=== PATIENT | male | born 1955 | race Caucasian/White ===

== ENCOUNTER 2023-08-27 14:42 | Emergency (ER) | payer MEDICARE, BC, SELFPAY ==
[2023-08-27 14:55] VITALS: BP 194/83; PULSE 98; RESP 18; TEMP 36.5; O2SAT 100; BMI 28.1
--- NOTE | 2023-08-27 15:44 | CRLHL7_ITS ---
For Patients: As a result of the Century Cures Act, medical imaging exams and procedure reports are released immediately into your electronic medical record. You may view this report before your referring provider. If you have questions, please contact your health care provider. INDICATION: Redness, pain. TECHNIQUE: CT right lower extremity acquired with 93 cc Isovue 370 IV contrast. COMPARISON: 08/23/2023. FINDINGS: Persistent low-density collection in the lateral soft tissues measuring approximately 1.2 x 6.1 x 12.0 cm. Again demonstrated thickening of the adjacent fascial later, which remains intact, with continued edema of the underlying musculature. Circumferential soft tissue stranding and edema throughout the right lower extremity. No acute fracture or dislocation. Mild knee degenerative changes. No joint effusions. No popliteal cyst. Muscle bulk is within normal limits. IMPRESSION: Persistent large elongated low-density collection in the lateral soft tissues, which remains concerning for abscess. Please note that all CT scans at this facility use dose modulation, iterative reconstruction, and/or weight-based dosing when appropriate to reduce radiation dose to as low as reasonably achievable. Dictated by Ap Simmons MD @ 08/27/2023 6:03:33 PM (Electronically Signed)
--- NOTE | 2023-08-27 16:06 | ED_ITS ---
HPI - Wound/Laceration General Date Seen: 08/27/23 Chief Complaint: Laceration/Wound Stated Complaint: Abscess on R leg Time Seen by Provider: 08/27/23 15:05 Source: patient Mode of arrival: ambulatory Limitations: no limitations History of Present Illness HPI narrative: Patient is a 68-year-old male presenting to emergency department for concern of of a wound on his left leg. He initially developed this wound several months ago and for surgery at [facility] was January of 2023. Wound has been healing well and he was offered the option to get a skin graft but want to let it heal on its own since it was doing well. Was doing fine up until this past Friday they noticed increased odor coming from the wound and a darker red and purplish around the leg. He went back to [facility] emergency department for evaluation. At that time they did a CT scan showing an abscess and recommended inpatient treatment. Did not have a surgeon available that day and could not transfer him so patient left AMA with antibiotics. They gave him a stat surgery referral but when the patient tried to call in to schedule an appointment he was told he was unable to. Do that he came to [place] ED for evaluation. His states since then the wound is looking better and the color of his legs looking much better. Does state the older has decreased noticeably since Friday but is slightly worse again today. Denies fevers, chills, weakness, numbness, headache, vision changes, abdominal pain, diarrhea. Also of note he is chronic pancytopenia which has not been formally diagnosed. He did see cancer doctors in [facility] in states initially he was told he could be treated with hormones another told him it had to be chemotherapy and nothing ever was done about it. Related Data Home Medications ?Medication ?Instructions ?Recorded ?Confirmed doxycycline monohydrate 100 mg 100 mg PO BID 08/27/23 08/27/23 capsule Allergies Allergy/AdvReac Type Severity Reaction Status Date / Time No Known Drug Allergies Allergy Verified 08/27/23 15:03 Review of Systems Status of ROS: Reports: 10 or more systems reviewed and unremarkable except as noted in History and below [facility] Social History Smoking Status: Current every day smoker Exam Narrative: Exam Narrative: Const: Well-nourished, Well-developed, in mild distress Eyes: PERRL, no conjunctival injection, and symmetrical lids HENT: Atraumatic external nose and ears. Moist mucous membranes. Neck: Symmetric, trachea midline, No thyromegaly. CVS: RRR, No murmurs or gallops. Peripheral pulses 2+ and equal in all extremities RESP: Unlabored respiratory effort. Clear to auscultation bilaterally. GI: Nontender/Nondistended, No rebound or guarding. MSK:Extremities w/o deformity, Normal Active ROM Skin: Large 4 cm x 8 cm wound to his left leg with surrounding erythema. Adipose in granular tissue seem to be extruding from the wound which is normal he states Neuro: Normal Muscle tone, No focal neurological deficits. Psych: Awake, Alert, & Oriented x3. Appropriate mood and affect. Const: Vital Signs, click to edit/add: Vital Signs - 24 hr 08/27/23 14:55 Temperature 97.7 F Pulse Rate [Right Pulse Oximeter] 98 Respiratory Rate 18 Blood Pressure [Ri ght Upper Arm] 194/83 H Pulse Oximetry 100 Oxygen Delivery Me thod Room Air Course Vital Signs Vital signs: Initial Vital Signs Temperature 97.7 F 08/27/23 14:55 Temperature Source Temporal Artery Scan 08/27/23 14:55 Pulse Rate 98 08/27/23 14:55 Respiratory Rate 18 08/27/23 14:55 Blood Pressure 194/83 H 08/27/23 14:55 Blood Pressure Mean 120 H 08/27/23 14:55 Blood Pressure Position Sitting 08/27/23 14:55 Pulse Oximetry 100 08/27/23 14:55 Oxygen Delivery Method Room Air 08/27/23 14:55 Vital Signs Temperature 97.7 F 08/27/23 14:55 Pulse Rate 98 08/27/23 14:55 Respiratory Rate 18 08/27/23 14:55 Blood Pressure 194/83 H 08/27/23 14:55 Pulse Oximetry 100 08/27/23 14:55 Oxygen Delivery Method Room Air 08/27/23 14:55 Temperature 97.7 F 08/27/23 14:55 Pulse Rate 98 08/27/23 14:55 Respiratory Rate 18 08/27/23 14:55 Blood Pressure 194/83 H 08/27/23 14:55 Pulse Oximetry 100 08/27/23 14:55 Oxygen Delivery Method Room Air 08/27/23 14:55 MDM - Wound/Laceration MDM Narrative Medical decision making narrative: Patient is a 68-year-old male presenting to emergency department for concern of an abscess. States there is concerned because there is a worsening older but overall the area around the wound is looking better. Denies fevers or chills. No other concerns noted. CBC and BMP were ordered. CBC returned with a white count a 1.52. Based on his previous lab work seen [facility] this is consistent and not any different than his baseline. Hemoglobin also appears roughly around baseline. BMP showed no concerning findings. CT scan was done of the right lower extremity with IV contrast showing a persistent large elongated low-densit y collection in the lateral soft tissue which is concerning for abscess. I spoke to Dr. Paniagua of general surgery and explained her that patient is concerned about this abscess due to the return of the foul-smelling area but overall he states that it looks much better. She reviewed the CT and states that he can follow-up outpatient with their clinic tomorrow at noon. He is agreeable to that plan. Lab Data Labs: Lab Results 08/27/23 Range/Units 16:00 WBC 1.52 L* (4.50-11.00) K/uL RBC 3.61 L (4.30-5.90) m/uL Hgb 8.2 L (13.5-17.5) gm/dL Hct 28.7 L (37.0-53.0) % MCV 80 (80-100) fL MCH 23 L (26-34) pg MCHC 29 L (32-36) gm/dL RDW Coeff of Aguilar 19.7 H (11.5-15.5) % Plt Count 370 (140-440) K/uL Neut % (Auto) 22.4 L (42.0-72.0) % Lymph % (Auto) 39.5 (20-44) % Sargent % (Auto) 32.2 H (0.0-11.0) % Eos % (Auto) 1.3 (0.0-7.0) % Baso % (Auto) 3.3 H (0.0-3.0) % Neut # (Auto) 0.30 L (1.7-7.0) K/uL Lymph # (Auto) 0.60 L (0.90-2.90) K/uL Sargent # (Auto) 0.50 (0.00-0.90) K/UL Eos # (Auto) 0.00 (0.00-0.50) K/uL Baso # (Auto) 0.10 (0.00-0.30) K/uL Abs Immat Gran (auto) 0.00 (0.00-0.30) K/uL Imm/Tot Granulo (auto) 1.3 % Diff Slide Review Acceptable Review (Acceptable) Sodium 134 L (135-149) mmol/L Potassium 3.8 (3.6-5.1) mmol/L Chloride 105 (96-114) mmol/L Carbon Dioxide 23 (20-32) mmol/L Anion Gap 6 L (7-15) mEq/L BUN 15 (7-30) mg/dL Creatinine 1.1 (0.5-1.5) mg/dL Estimated Creat Clear 64.27 Estimated GFR 73 ml/min Glucose 89 (60-115) mg/dL Calcium 8.8 (8.4-10.6) mg/dL Imaging Data CT scan right lower extremity: Attestation: I have reviewed the pertinent imaging results. Radiologist's impression: Persistent large elongated low-density collection in the lateral soft tissues, which remains concerning for abscess. Please note that all CT scans at this facility use dose modulation, iterative reconstruction, and/or weight-based dosing when appropriate to reduce radiation dose to as low as reasonably achievable. Dictated by Ap Simmons MD @ 08/27/2023 6:03:33 PM (Electronic Signature) Discharge Plan Discharge Clinical Impression: Abscess Patient Disposition: Home, Self-Care Condition: Stable Instructions: Abscess (ED) Additional Instructions: You have an appointment with Dr. Paniagua tomorrow at noon at the [place] [facility]. Be there by 11:45. It is located at the same area as the [facility]. Return to emergency department for new or worsening symptoms. Prescriptions: No Action doxycycline monohydrate 100 mg capsule 100 mg PO BID Follow Up/Referrals: David Ambrocio MD [Primary Care Provider] - Stand Alone Forms: MyHealth Info Instructions
[2023-08-27 16:12] LABS: Basophils Percent Auto 3.3 % (0.0-3.0); Eosinophils Percent Auto 1.3 % (0.0-7.0); Hematocrit 28.7 % (37.0-53.0); Hemoglobin* 8.2 gm/dL (13.5-17.5); Immature Granulocytes Pct Auto 1.3 %; Lymphocytes Percent Auto 39.5 % (20-44); Mean Corpuscular HGB Conc 29 gm/dL (32-36); Mean Corpuscular Hemoglobin 23 pg (26-34); Mean Corpuscular Volume 80 fL (80-100); Monocytes Percent Auto 32.2 % (0.0-11.0); Neutrophils Percent Auto 22.4 % (42.0-72.0); Platelet Count* 370 K/uL (140-440); RDW Coefficient of Variation % 19.7 % (11.5-15.5); Red Blood Count 3.61 m/uL (4.30-5.90)
[2023-08-27 16:27] LABS: Slide Review Reflex Yes; White Blood Count* 1.52 K/uL (4.50-11.00)
[2023-08-27 16:45] LABS: Chloride* 105 mmol/L (96-114); Potassium* 3.8 mmol/L (3.6-5.1); Sodium* 134 mmol/L (135-149)
[2023-08-27 16:48] LABS: Anion Gap 6 mEq/L (7-15); Blood Urea Nitrogen* 15 mg/dL (7-30); Calcium* 8.8 mg/dL (8.4-10.6); Carbon Dioxide* 23 mmol/L (20-32); Creatinine* 1.1 mg/dL (0.5-1.5); Est. Creatinine Clearance* 64.27; Estimated Glomerular Filt Rate 73 ml/min; Glucose* 89 mg/dL (60-115)
[2023-08-27 17:34] LABS: Slide Review Acceptable Review (Acceptable)
== END 2023-08-27 18:58 | disposition home or self-care (01) ==
PROVIDERS: Emergency Provider Student in an Organized Health Care Education/Training Program; PCP Family Medicine
DX: L02.415 Cutaneous abscess of right lower limb (principal)
CPT/HCPCS: 36415; 73701; 80048; 85025; 99283; 99284; 99285; Q9967

== ENCOUNTER 2023-08-29 06:47 | Day surgery (SDC) | payer MEDICARE, BC, SELFPAY ==
--- OUTSIDE RECORDS SUMMARY | 2023-08-29 06:49 | XMS_ITS | Clinical Summary ---
Author Organization [facility] Address [place], [place] [address] Care Team Providers Care Pecan Huller Name Role Phone Elvira Morin Stefano RN Unavailable Radha Edouard MD Unavailable [phone] Lizeth Alarcon DRAG CAR RACER Unavailable David Ambrocio MD Primary Care Provider Jaylon Raymond WILDLIFE REFUGE MANAGER Unavailable [phone] [facility] Allergies Active Allergy Reactions Criticality Noted Date Comments Venom-Yellow Jacket Edema Unknown 01/22/2023 Medications Medication Sig Dispensed Refills Start Date End Date Status multivitamin (MVI) tablet Take 1 tablet by mouth once daily. 0 08/24/2011 Active fluticasone (50 mcg per actuation) nasal solution (FLONASE)Indicati ons:Seasonal allergic rhinitis, unspecified trigger 1 SPRAY IN EACH NOSTRIL 2 TIMES DAILY. 16 g 12 04/03/2020 Active cholecalciferol, Vitamin D3, (Vitamin D-3) 5,000 unit tab tablet Take 5,000 units by mouth once daily. Active vitamin B complex (B COMPLETE ORAL) Take 1 Tablet by mouth once daily. Active Bismuth Tribrom-Petrolatu m,Wh (Xeroform) 5 X 9 bndgIndications:W ound of right lower extremity, subsequent encounter Apply topically to affected area(s). 50 Each 2 02/11/2023 Active ferrous sulfate (IRON ORAL) Take by mouth. Active medication order Johnniecataliya ns:Wound of right lower extremity, subsequent encounter Apply 1 unit topically to affected area(s) once daily. Hydrofera Blue Ready antibacterial foam dressing 8x8. Use one per day. 30 Each 08/15/2023 Active doxycycline 100 mg tabletIndications :Abscess of right lower extremity Take 1 Tablet (100 mg) by mouth two times daily for 7 days. 14 Tablet 08/23/2023 Active WalkerIndications :Arthralgia, unspecified joint Walker with front wheels for home use. 1 Each 01/06/2023 4 Discontinue d(*Med complete/Re gimen complete/Le monse of care change) nicotine 14 mg/24 hr (NICODERM; HABITROL) 14 mg/24 hr patchIndications: Pancytopenia (HC) Apply 1 Patch on dry, clean, hairless skin once daily. 21 Patch 2 03/24/2023 4 Discontinue d(*Med complete/Re gimen complete/Le monse of care change) Active Problems Problem Noted Date Diagnosed Date Abscess of right lower leg 01/20/2023 Cellulitis of right lower extremity 01/10/2023 Neutropenia 01/10/2023 Severe sepsis 01/03/2023 Pancytopenia 10/27/2022 Headache(784.0) 05/16/2006 NIGHT SWEATS 05/16/2006 Unspecified essential hypertension 05/16/2006 Pain in joint, site unspecified 05/16/2006 Impotence of organic origin 05/16/2006 MEMORY LOSS, INTERMITTANT 05/16/2006 Encounters Date Type Department Care Team Description 08/23/2023 7:26 PM CDT - 08/23/2023 11:10 PM CDT Emergency [facility] [address] [place] [address] Elvira Thayer PA Abscess of right lower extremity (Primary Dx); Neutropenia, unspecified type (HC) Discharge Disposition: Home Self Care 08/23/2023 Travel 08/12/2023 11:00 AM CDT Office Visit [facility] [address] [place] [address] Radha Edouard MD Follow Up (Pancytopenia (HC) [D61.818]//) 08/12/2023 Travel 08/06/2023 9:47 AM CDT - 08/06/2023 11:59 PM CDT Hospital Encounter [facility] [address] [facility] [place] [address] Pancytopenia (HC) [D61.818] 08/06/2023 Travel 07/22/2023 10:15 AM CDT Office Visit [facility] [place] [address] [address] [facility] [phone] Faraz Henson DPM Consult (Bilateral foot pain and swelling, R>L) 07/22/2023 Travel 06/06/2023 Telephone [facility] [address] [facility] [address] David Ambrocio MD Form (form for wound supplies.) from Last 3 Months Immunizations Name Administration Dates Next Due Td (Age >=7 Years) 07/28/1996 Td, Preservative Free (age >= 7 Years) 7 Tdap 08/28/2022 Family History Medical History Relation Name Comments Thyroid Disease Brother 2 HALF BROTHER WITH GRAVE'S Cancer Father MULTIPLE MYELOM A Diabetes Mother Hyperlipidemia Mother Hypertension Mother Heart Disease Paternal Aunt Cancer Paternal Grandmother Diabetes Paternal Grandmother Heart Disease Paternal Grandmother HEART ATTACK Cancer Paternal Uncle Diabetes Sister 3 HALF SISTER Hypertension Sister 4 HALF SISTER Heart Disease Sister 5 HALF SISTER Relation Name Status Comments Brother 1 Alive Brother 2 Daughter 1 Alive Daughter 2 Alive Daughter 3 Alive Father Maternal Grandfather Maternal Grandmother Mother Paternal Aunt Paternal Grandfather Paternal Grandmother Paternal Uncle Sister 1 Alive Sister 2 Alive Sister 3 Sister 4 Sister 5 Son 1 Alive Son 2 Alive Son 3 Alive Social History Tobacco Use Types Packs/Day Years Used Date Smoking Tobacco: Every Day Cigarettes 1 55.4 Started: 1968 Passive Smoke Exposure: Current Smokeless Tobacco: Never Tobacco Cessation:Ready to Q uit: No; Counseling Given: Yes Alcohol Use Standard Drinks/Week Comments No 0 (1 standard drink = 0.6 oz pur e alcohol) PHQ-2 Answer Date Recorded PHQ-2 TOTAL SCORE 0 09/09/2022 Social Connections Answer Date Recorded Frequency of Communication with Friends and Fami ly 0 01/03/2023 Financial Resource Strain Answer Date R ecorded Difficulty of Paying Living Expenses 3 01/03/2023 Difficulty of Paying Living Expenses Not on file 01/03/2023 Food Insecurity Answer Date Recorded Worried About Running Out of Food in the Last Ye ar 1 01/03/2023 Transportation Needs Answer Date Record ed Lack of Transportation (Medical) 1 01/03/2023 Housing Stability Answer Date Recorded Unable to Pay for Housing in the Last Year 1 01/03/2023 Sex and Gender Information Value Date Recorded Sex Assigned at Not on file Gender Identity Not on file Sexual Orientation Not on file Obstetrics History Last Filed Vital Signs Vital Sign Reading Time Taken Comments Blood Pressure 153/102 08/23/2023 7:02 PM CDT Pulse 91 08/23/2023 7:02 PM CDT Temperature 36.7 ??C (98 ??F) 08/23/2023 7:02 PM CDT Respiratory Rate 17 08/23/2023 7:02 PM CDT Oxygen Saturation 98% 08/23/2023 7:02 PM CDT Inhaled Oxygen Concentration - - Weight 86.8 kg (191 lb 4.8 oz) 08/23/2023 7:05 P M CDT Height 175.3 cm (5' 9) 08/23/2023 7:02 PM CDT Body Mass Index 28.25 08/23/2023 7:02 PM CDT Plan of Treatment Upcoming Encounters Date Type Department Care Team (Late st Contact Info) Description 11/12/2023 9:00 AM CDT Appointment [facility] [address] [place] [address] 11/19/2023 11:15 AM CDT Office Visit [facility] [address] [place] [phone] Lizeth Alarcon, DRAG CAR RACER [address] [place] [address] Health Maintenance Due Date Last Done Comments Pneumococcal series for age 65+ (1 of 2 - PCV) 1961 Colonoscopy through age 75 2000 Zoster (shingles) series for age 50+ (1 of 2) 2005 Medicare Wellness for age 65+ 2020 COVID-19 vaccine series (1 - 2022-24 season) 2022 Depression screening for age 12+ 09/10/2023 09/10/19, 04/03/2020 Influenza for age 65+ 12/07/[address] (for lung CA) age 50-80 01/04/202401/03, 09/19/2022 BMI (ht and wt on same day) for age 18+ 02/12/2024 02/11/2023, 09/09/2022 Lipids for age 45-75 09/10/2027 09/09/2022, 11/26/2010, 05/16/2006 Tetanus booster 08/28/2032 08/28/2022, 12/2006, 07/28/1996 Tdap Completed 08/28/2022 AAA screening age 65-74 Completed 09/19/2022 Hepatitis C screening for age 18-79 Completed 10/09 Procedures Procedure Name Priority Date/Time Associated Diagnosis Comments CT LOWER EXTREMITY RIGHT W STAT 08/23/2023 9:47 PM CDT RED CELL MORPHOLOGY STAT 08/23/2023 8 :13 PM CDT PLATELET ESTIMATE STAT 08/23/2023 8:1 3 PM CDT MANUAL DIFFERENTIAL STAT 08/23/2023 8 :13 PM CDT CBC WITH AUTO DIFFERENTIAL STAT 08/23/2023 8:13 PM CDT SEDIMENTATION RATE Today 08/23/2023 8: 13 PM CDT C-REACTIVE PROTEIN STAT 08/23/2023 8: 13 PM CDT LACTATE VENOUS Today 08/23/2023 8:13 PM CDT BASIC METABOLIC PANEL STAT 08/23/2023 8:13 PM CDT CBC WITH AUTO DIFFERENTIAL STAT 08/23/2023 8:13 PM CDT PERIPHERAL BLD MORPHOLOGY Today 08/06/2023 9:54 AM CDT Pancytopenia (HC) [D61.818] RED CELL MORPHOLOGY Timed 08/06/2023 9 :54 AM CDT Pancytopenia (HC) [D61.818] PLATELET ESTIMATE Timed 08/06/2023 9:5 4 AM CDT Pancytopenia (HC) [D61.818] MANUAL DIFFERENTIAL Timed 08/06/2023 9 :54 AM CDT Pancytopenia (HC) [D61.818] CBC WITH AUTO DIFFERENTIAL Timed 08/06/2023 9:54 AM CDT Pancytopenia (HC) [D61.818] RETICULOCYTES Today 08/06/2023 9:54 AM CDT Pancytopenia (HC) [D61.818] HEPATIC FUNCTION PANEL Today 08/06/2023 9:54 AM CDT Pancytopenia (HC) [D61.818] BASIC METABOLIC PANEL Today 08/06/2023 9:54 AM CDT Pancytopenia (HC) [D61.818] CBC WITH AUTO DIFFERENTIAL Today 08/06/2023 9:54 AM CDT Pancytopenia (HC) [D61.818] CT CHEST ABDOMEN PELVIS WO STAT 01/03/2023 2:35 AM CDT LC HCV ANTIBODY RFX TO QUANT PCR Today 10/09/2022 9:06 AM CDT Pancytopenia (HC) CT CHEST ABDOMEN PELVIS W LAITH 09/19/2022 1:44 PM CDT Pancytopenia (HC) LIPID PANEL W REFLEX MEASURED LDL Routine 09/09/2022 12:06 PM CDT Hyperlipidemia, unspecified hyperlipidemia type from Last 3 Months or Most Recently Relevant to Health Maintenance Results * CT LOWER EXTREMITY RIGHT W (08/23/2023 9:47 PM CDT) Anatomical Region Laterality Modality FEMUR R, KNEE R, ANKLE R, FOOT R Computed Tomography 08/23/2023 10:0 1 PM CDT Impressions 08/23/2023 10:01 PM CDT 1. Large elongated lateral subcutaneous low-density collection, concerning for abscess. 2. Thickening of the adjacent fascial layer, which is otherwise intact. Please note that all CT scans at this facility use dose modulation, iterative reconstruction, and/or weight-based dosing when appropriate to reduce radiation dose to as low as reasonably achievable. Dictated by Ap Simmons MD @ 08/23/2023 10:01:40 PM (Electronically Signed) Narrative 08/23/2023 10:01 PM CDT For Patients: ??As a result of the Cures Act, medical imaging exams and procedure reports are released immediately into your electronic medical record. ??You may view this report before your referring provider. ??If you have questions, please contact your health care provider. INDICATION: Redness, discharge. TECHNIQUE: CT right lower extremity acquired with 100 cc Omnipaque 300 IV contrast. COMPARISON: 01/10/2023. FINDINGS: Lateral subcutaneous low-density collection measuring approximately 1.1 x 6.0 x 12.0 cm (TR x AP x CC). Thickening of the adjacent fascial layer, which is otherwise intact. Edema of the underlying musculature. Circumferential subcutaneous soft tissue stranding and edema. No acute fracture or dislocation. Mild knee degenerative changes. Moderate 1st MTP joint degenerative changes. No joint effusions. Muscle bulk is within normal limits. Procedure Note Ap Simmons MD - 08/23/2023 For Patients: As a result of the 21st Century Cures Act, medical imagingexams and procedure reports are released immediately into your electronicmedical record. You may view this report before your referring provider.If you have questions, please contact your health care provider. INDICATION: Redness, discharge. TECHNIQUE: CT right lower extremity acquired with 100 cc Omnipaque 300 IV contrast. COMPARISON: 01/10/2023. FINDINGS: Lateral subcutaneous low-density collection measuring approximately 1.1 x6.0 x 12.0 cm (TR x AP x CC). Thickening of the adjacent fascial layer,which is otherwise intact. Edema of the underlying musculature.Circumferential subcutaneous soft tissue stranding and edema. No acutefracture or dislocation. Mild knee degenerative changes. Moderate 1st MTPjoint degenerative changes. No joint effusions. Muscle bulk is withinnormal limits. IMPRESSION: 1. Large elongated lateral subcutaneous low-density collection, concerningfor abscess. 2. Thickening of the adjacent fascial layer, which is otherwise intact. Please note that all CT scans at this facility use dose modulation,iterative reconstruction, and/or weight-based dosing when appropriate toreduce radiation dose to as low as reasonably achievable. Dictated by Ap Simmons MD @ 08/23/2023 10:01:40 PM (Electronically Signed) Elvira MICHELLE CT * (ABNORMAL) SEDIMENTATION RATE (08/23/2023 8:13 PM CDT) [facility] SEDIMENTATION RATE 51(H) <20 mm/hr 2023 8:38 PM CDT [facility] Blood BLOOD SPECIMEN / Unknown IV Start / Unknown 08/23/2023 8:13 PM CDT 08/23/2023 8:16 PM CDT lEvira MICHELLE HEMATOLOGY [facility] [address] [place] [address] * (ABNORMAL) CBC WITH AUTO DIFFERENTIAL (08/23/2023 8:13 PM CDT) Only the most recent of2 resultswithin the time period is included. [facility] WHITE BLOOD COUNT 1.9(L) 4.5 - 11.0 thou/cu mm 08/23/2023 9:06 PM [facility] RED BLOOD COUNT 3.30(L) 4.30 - 5.90 mil/cu mm 08/23/2023 9:06 PM [facility] HEMOGLOBIN 7.4(L) 13.5 - 17.5 g/dL 08/23/2023 9:06 PM [facility] HEMATOCRIT 26.5(L) 37.0 - 53.0 % 08/23/2023 9:06 PM [facility] MCV 80 80 - 100 fL 08/23/2023 9:06 PM [facility] MCH 22.4(L) 26.0 - 34.0 pg 08/23/2023 9:06 PM [facility] MCHC 27.9(L) 32.0 - 36.0 g/dL 08/23/2023 9:06 PM [facility] RDW 19.3(H) 11.5 - 15.5 % 08/23/2023 9:06 PM [facility] PLATELET COUNT 272 140 - 440 thou/cu mm 08/23/2023 9:06 PM [facility] MPV 10.0 6.5 - 11.0 fL 08/23/2023 9:06 PM [facility] Blood BLOOD SPECIMEN / Unknown IV Start / Unknown 08/23/2023 8:13 PM CDT 08/23/2023 8:16 PM CDT Elvira MICHELLE HEMATOLOGY [facility] [address] [place] [address] * (ABNORMAL) RED CELL MORPHOLOGY (08/23/2023 8:13 PM CDT) Only the most recent of2 resultswithin the time period is included. ELLIPTOCYTES Moderate 08/23/2023 9:06 PM [facility] POLYCHROMASIA Moderate 08/23/2023 9:06 PM CDT [facility] RBC COMMENT Present(A) RBC morphology appears normal, RBC morphology within normal limits for newborns. 08/23/2023 9:06 PM CDT [facility] LARGE PLATELETS Present 9:06 PM CDT [facility] Blood BLOOD SPECIMEN / Unknown IV Start / Unknown 08/23/2023 8:13 PM CDT 08/23/2023 8:16 PM CDT Elvira MICHELLE HEMATOLOGY Performing Organization Address City/[facility]/ZIP Co de Phone Number [facility] [address] [place] [address] * PLATELET ESTIMATE (08/23/2023 8:13 PM CDT) Only the most recent of2 resultswithin the time period is included. PLATELET ESTIMATE Adequate Adequate, No estimate 08/23/2023 9:06 PM CDT [facility] Blood BLOOD SPECIMEN / Unknown IV Start / Unknown 08/23/2023 8:13 PM CDT 08/23/2023 8:16 PM CDT Elvira MICHELLE HEMATOLOGY Performing Organization Address [facility]/ZIP Co de Phone Number [facility] [address] [place] [address] * LACTATE VENOUS (08/23/2023 8:13 PM CDT) LACTATE,VENOUS 0.5 0.5 - 2.0 mmol/L 08/23/2023 8:40 PM CDT [facility] Blood BLOOD SPECIMEN / Unknown IV Start / Unknown 08/23/2023 8:13 PM CDT 08/23/2023 8:16 PM CDT Elvira MICHELLE CHEMISTRY Performing Organization Address City/[facility]/ZIP Co de Phone Number [facility] [address] [place] [address] * (ABNORMAL) MANUAL DIFFERENTIAL (08/23/2023 8:13 PM CDT) Only the most recent of2 resultswithin the time period is included. % NEUTROPHILS 20.0 % 08/23/2023 9:06 PM [facility] % LYMPHOCYTES 48.0 % 08/23/2023 9:06 PM [facility] % MONOCYTES 31.0 % 08/23/2023 9:06 PM T [facility] % EOSINOPHILS 1.0 % 08/23/2023 9:06 PM [facility] % BASOPHILS 0.0 % 08/23/2023 9:06 PM [facility] NEUTROPHILS ABSOLUTE 0.4(L) 1.7 - 7.0 thou/cu mm 08/23/2023 9:06 PM T [facility] LYMPHOCYTES ABSOLUTE 0.9 0.9 - 2.9 thou/cu mm 08/23/2023 9:06 PM [facility] MONOCYTES ABSOLUTE 0.6 <0.9 thou/cu mm 08/23/2023 9:06 PM [facility] EOSINOPHILS ABSOLUTE 0.0 <0.5 thou/cu mm 08/23/2023 9:06 PM [facility] BASOPHILS ABSOLUTE 0.0 <0.3 thou/cu mm 08/23/2023 9:06 PM [facility] Blood BLOOD SPECIMEN / Unknown IV Start / Unknown 08/23/2023 8:13 PM CDT 08/23/2023 8:16 PM CDT Elvira MICHELLE HEMATOLOGY [facility] [address] [place] [address] * (ABNORMAL) C-REACTIVE PROTEIN (08/23/2023 8:13 PM CDT) C-REACTIVE PROTEIN 2.8(H) <0.5 mg/dL 08/23/2023 8:41 PM T [facility] Blood BLOOD SPECIMEN / Unknown IV Start / Unknown 08/23/2023 8:13 PM CDT 08/23/2023 8:16 PM CDT Elvira MICHELLE CHEMISTRY [facility] [address] [facility] [place] [address] * (ABNORMAL) BASIC METABOLIC PANEL (08/23/2023 8:13 PM CDT) Only the most recent of2 resultswithin the time period is included. SODIUM 133(L) 136 - 145 mmol/L 08/23/2023 8:41 PM [facility] POTASSIUM 4.0 3.5 - 5.1 mmol/L 08/23/2023 8:41 PM [facility] CHLORIDE 104 98 - 107 mmol/L 08/23/2023 8:41 PM [facility] CO2,TOTAL 22 22 - 29 mmol/L 08/23/2023 8:41 PM [facility] ANION GAP 7 5 - 18 08/23/2023 8:41 PM [facility] GLUCOSE 80 70 - 99 mg/dL 08/23/2023 8:41 PM [facility] CALCIUM 8.4(L) 8.8 - 10.2 mg/dL 08/23/2023 8:41 PM [facility] BUN 14 8 - 23 mg/dL 08/23/2023 8:41 PM [facility] CREATININE 1.25(H) 0.70 - 1.20 mg/dL 08/23/2023 8:41 PM [facility] BUN/CREAT RATIO 11 10 - 20 8:41 PM [facility] eGFR 63(L) >90 mL/min/1.7 3m2 08/23/2023 8:41 PM [facility] Comment:As of 2021, eG FR is calculated by the CKD-EPI creatinine equation without race adjustment. ??eGFR can be influenced by muscle mass, exercise, and diet. ??The reported eGFR is an estimation only and is only applicable if the renal function is stable. Blood BLOOD SPECIMEN / Unknown IV Start / Unknown 08/23/2023 8:13 PM CDT 08/23/2023 8:16 PM CDT Elvira MICHELLE CHEMISTRY Performing Organization Address [facility]/ZIP Co de Phone Number [facility] [address] [place] [address] * PERIPHERAL BLD MORPHOLOGY (08/06/2023 9:54 AM CDT) Case Report Special Hematology Report ? Case: [id number] ? Authorizing Provider: ??Lizeth Alarcon NP ? Collected: ? 08/06/2023 0954 ? Ordering Location: ? [facility] ? Received: ?08/06/2023 0954 ? [facility] ? Pathologist: ? Henrique Arana, ? MD ? Specimen: ?Blood ? 08/10/2023 10:29 PM CDT [facility]-C ENTRAL LABORATORY Final Diagnosis PERIPHERAL BLOOD: 1. Changes consistent with myeloid neoplasm, including: ?? a. 2% circulating blasts ?? b. Moderate normocytic anemia (MCV at lower limit of normal) ?? c. 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 See comment 08/10/2023 10:29 PM CDT [facility] Comment As seen in multiple prior blood morphology cases, the findings continue to be compatible with a myeloid neoplasm. A bone marrow biopsy would be required for definitive diagnosis and classification of this process, if clinically feasible (clinical correlation recommended). This case was also reviewed by Mari Armijo [place], MS ([facility]). 08/10/2023 10:29 PM CDT [facility] Clinical Information The patient is a 68-year-old male. Pertinent clinical information: Pancytopenia, suspicious for a myeloid neoplasm. Per EPIC: Additional history includes hypertension, night sweats, and tobacco use. His most recent peripheral blood morphology March 2023 ([id number]) showed features suggestive of a myeloid neoplasm with a moderate normocytic anemia and leukopenia reflecting mild neutropenia with dysgranulopoiesis. 08/10/2023 10:29 PM CDT [facility] CBC and Differential HEMATOLOGY PARAMETERS Tested at: ??[facility] ? RESULTS ??EXPECTED VALUES WBC: ? 1.8 ?4.5-29z7349/cumm ?DECREASED RBC: ? 3.79 ? 4.30-5.90 mil/cumm ??DECREASED HGB: ? 8.7 ?13.5-17.5 gm/di ? DECREASED HCT: ? 30.3 ? 37-53% ?DECREASED MCV: ? 80.0 ? 80-100 fl ? NORMOCYTIC MCH: ? 23.0 ? 26-34 pg ?DECREASED MCHC: ?28.7 ? 32-36 gm/dl ? HYPOCHROMIC RDW: ? 18.9 ? 11.5-15.5% ?ELEVATED PLT: ? 293 ?140-212n5156/uL ? MPV: ? 9.5 ?6.5-11 fl ? Retic: ?? 5.4 ?0.5-1.5% ?ELEVATED Differential ?Absolute (%) ?Expected (%) ?(x10*9/L) ? (x10*9/L) Neutrophils: ?0.4 (21) ?1.7-7.0 (42-72%) ?DECREASED Lymphocytes: ?1.1 (62) ?0.9-2.9 (20-44%) ?? Monocytes: ?0.2 (12) ? <0.9 (0-11%) Eosinophils: ?0.0 (2) ?<0.5 (0-2%) Basophils: ?0.0 (1) ?<0.3 (<3.0%) Blasts ?0.0 (2) ? 0 ? BLASTS ?? 08/10/2023 10:29 PM CDT [facility] Microscopic Description The final diagnosis is based on microscopic examination of an appropriately stained blood smear. 08/10/2023 10:29 PM CDT [facility]-C ENTRAL LABORATORY Additional Information Interpreted at [facility] Laboratory - [address] [facility] [address] [address] 08/10/2023 10:29 PM T [facility]- ENTRAL LABORATORY Blood BLOOD SPECIMEN / Unknown Venipuncture / Unknown 08/06/2023 9:54 AM CDT 08/06/2023 9:54 AM CDT Comment:CURRENT MEDICATIONSC urrent Outpatient Medications: ? ? Bismuth Tribrom-Petrolatum,Wh (Xeroform) 5 X 9 bndg, Apply topically to affected area(s)., Disp: 50 Each, Rfl: 2? ? cholecalciferol, Vitamin D3, (Vitamin D-3) 5,000 unit tab tablet, Take 5,000 units by mouth once daily., Disp: , Rfl: ? ? fluticasone (50 mcg per actuation) nasal solution (FLONASE), 1 SPRAY IN EACH NOSTRIL 2 TIMES DAILY., Disp: 16 g, Rfl: 12? ? multivitamin (MVI) tablet, Take 1 tablet by mouth once daily., Disp: , Rfl: 0? ? nicotine 14 mg/24 hr (NICODERM; HABITROL) 14 mg/24 hr patch, Apply 1 Patch on dry, clean, hairless skin once daily., Disp: 21 Patch, Rfl: 2? ? vitamin B complex (B COMPLETE ORAL), Take 1 Tablet by mouth once daily., Disp: , Rfl: ? ? Walker, Walker with front wheels for home use. (Patient not taking: Reported on 05/30/2023), Disp: 1 Each, Rfl: 0This procedure was originally ordered at [facility]. Lizeth Alarcon NP HEMATOLOGY Performing Organization Address [facility] de Phone Number [facility] [address] [place] [id number], [place] * (ABNORMAL) RETICULOCYTES (08/06/2023 9:54 AM CDT) Pathologist [facility] RETIC% 5.4(H) 0.5 - 1.5 % 08/06/2023 10:16 PM CDT [facility] RETIC (ABSOLUTE) 0.21(H) 0.03 - 0.08 mil/cu mm 08/06/2023 10:16 PM CDT [facility] Blood BLOOD SPECIMEN / Unknown Venipuncture / Unknown 08/06/2023 9:54 AM CDT 08/06/2023 9:54 AM CDT Narrative [facility] - 08/06/2023 10:16 PM CDT This procedure was originally ordered at [facility]. Lizeth Alarcon NP HEMATOLOGY Performing Organization Address [facility] de Phone Number [facility] [facility] [address] [place] [id number], [place] * (ABNORMAL) HEPATIC FUNCTION PANEL (08/06/2023 9:54 AM CDT) ALBUMIN 3.1(L) 4.0 - 4.9 g/dL 08/06/2023 10:19 AM CDT [facility] PROTEIN,TOTAL 9.5(H) 6.0 - 8.0 g/dL 08/06/2023 10:19 AM CDT [facility] BILIRUBIN,TOTAL 0.6 0.0 - 1.2 mg/dL 08/06/2023 10:19 AM CDT [facility] BILIRUBIN,DIRECT <0.2 0.0 - 0.3 mg/dL 08/06/2023 10:19 AM CDT [facility] BILIRUBIN,INDIRE CT 08/06/2023 10:19 AM CDT [facility] Comment:Unable to calculate, Direct Bili <0.2 ALK PHOSPHATASE 87 40 - 129 IU/L 08/06/2023 10:19 AM CDT [facility] ALT (SGPT) 9(L) 10 - 50 IU/L 08/06/2023 10:19 AM CDT [facility] AST (SGOT) 39 10 - 50 IU/L 08/06/2023 10:19 AM CDT [facility] Blood BLOOD SPECIMEN / Unknown Venipuncture / Unknown 08/06/2023 9:54 AM CDT 08/06/2023 9:54 AM CDT Lizeth Alarcon NP CHEMISTRY [facility] [address] [place] [address] * CT CHEST ABDOMEN PELVIS WO (01/03/2023 2:35 AM CDT) Anatomical Region Laterality Modality Abdomen, Pelvis, AORTA, LIVER, SPLEEN, CHEST Computed Tomography 01/03/2023 3:02 AM CDT Impressions 01/03/2023 3:02 AM CDT 1. Dependent and bibasilar atelectasis. No focal consolidation. 2. Distended gallbladder with mild haziness of the gallbladder wall but no radiopaque gallstone. Clinically correlate for cholecystitis. 3. Otherwise no acute abnormality in the chest, abdomen, or pelvis on this noncontrast examination. Please note that all CT scans at this facility use dose modulation, iterative reconstruction, and/or weight-based dosing when appropriate to reduce radiation dose to as low as reasonably achievable. Dictated by Ap Simmons MD @ 01/03/2023 3:02:28 AM (Electronically Signed) Narrative 01/03/2023 3:02 AM CDT For Patients: ??As a result of the 21st Century Cures Act, medical imaging exams and procedure reports are released immediately into your electronic medical record. ??You may view this report before your referring provider. ??If you have questions, please contact your health care provider. INDICATION: Sepsis, altered mental status. TECHNIQUE: CT chest, abdomen, and pelvis without contrast. COMPARISON: CT chest, abdomen, and pelvis 09/19/2022. FINDINGS: CHEST: Lungs and pleura: Minimal emphysema. Dependent and bibasilar atelectasis. Stable few scattered sub-6 mm pulmonary nodules, such as a 4 mm right middle lobe nodule (series 2, image 56) and a 4 mm left upper lobe nodule (series 2, image 51). No new nodule. No pleural effusions or pneumothorax. Cardiovascular structures: Heart size is normal. Thoracic aorta and main pulmonary artery are normal in caliber. ?? Mediastinum and shaka: No mass or adenopathy. ?? Chest wall and axilla: No mass or adenopathy. ?? Bones: Degenerative changes. ABDOMEN AND PELVIS: Liver: Scattered hepatic cysts. Gallbladder and bile ducts: Distended gallbladder with mild haziness of the gallbladder wall. No radiopaque stone. No biliary ductal dilatation. Spleen: Unremarkable. ?? Adrenal glands: Unremarkable. ?? Pancreas: Sequela of chronic pancreatitis with scattered calcifications. Kidneys: Unremarkable. ?? GI tract: Unremarkable. ?? Lymph nodes: Unremarkable. ?? Vascular structures: Scattered atherosclerotic calcifications. Miscellaneous: Unremarkable. No free air or significant free fluid. ?? Pelvic organs: Unremarkable. ?? Bones: Degenerative changes. Procedure Note Ap Simmons MD - 01/03/2023 For Patients: As a result of the 21st Century Cures Act, medical imagingexams and procedure reports are released immediately into your electronicmedical record. You may view this report before your referring provider.If you have questions, please contact your health care provider. INDICATION: Sepsis, altered mental status. TECHNIQUE: CT chest, abdomen, and pelvis without contrast. COMPARISON: CT chest, abdomen, and pelvis 09/19/2022. FINDINGS: CHEST: Lungs and pleura: Minimal emphysema. Dependent and bibasilar atelectasis.Stable few scattered sub-6 mm pulmonary nodules, such as a 4 mm rightmiddle lobe nodule (series 2, image 56) and a 4 mm left upper lobe nodule(series 2, image 51). No new nodule. No pleural effusions or pneumothorax. Cardiovascular structures: Heart size is normal. Thoracic aorta and mainpulmonary artery are normal in caliber. Mediastinum and shaka: No mass or adenopathy. Chest wall and axilla: No mass or adenopathy. Bones: Degenerative changes. ABDOMEN AND PELVIS: Liver: Scattered hepatic cysts. Gallbladder and bile ducts: Distended gallbladder with mild haziness ofthe gallbladder wall. No radiopaque stone. No biliary ductal dilatation. Spleen: Unremarkable. Adrenal glands: Unremarkable. Pancreas: Sequela of chronic pancreatitis with scattered calcifications. Kidneys: Unremarkable. GI tract: Unremarkable. Lymph nodes: Unremarkable. Vascular structures: Scattered atherosclerotic calcifications. Miscellaneous: Unremarkable. No free air or significant free fluid. Pelvic organs: Unremarkable. Bones: Degenerative changes. IMPRESSION: 1. Dependent and bibasilar atelectasis. No focal consolidation. 2. Distended gallbladder with mild haziness of the gallbladder wall but noradiopaque gallstone. Clinically correlate for cholecystitis. 3. Otherwise no acute abnormality in the chest, abdomen, or pelvis on thisnoncontrast examination. Please note that all CT scans at this facility use dose modulation,iterative reconstruction, and/or weight-based dosing when appropriate toreduce radiation dose to as low as reasonably achievable. Dictated by Ap Simmons MD @ 01/03/2023 3:02:28 AM (Electronically Signed) [facility]ao [facility] CT * LC HCV ANTIBODY RFX TO QUANT PCR (10/09/2022 9:06 AM CDT) HCV Ab Non Reactive Non Reactive 10/11/2022 12:08 PM CDT [facility] Blood BLOOD SPECIMEN / Unknown Venipuncture / Unknown 10/09/2022 9:06 AM CDT 10/09/2022 9:06 AM CDT Narrative [facility] - 10/11/2022 12:08 PM CDT Performed at: ??[address] ??[id number] Spiritual Counselor: Zane Rebolledo MD, Phone: ??[phone] Radha Edouard MD LABORATORY [facility] ([facility]) [address] [place] [address], [place] * CT CHEST ABDOMEN PELVIS W (09/19/2022 1:44 PM CDT) Anatomical Region Laterality Modality Abdomen, Pelvis, AORTA, LIVER, SPLEEN, CHEST Computed Tomography 09/19/2022 5:21 PM CDT Impressions 09/19/2022 5:21 PM CDT 1. Numerous tiny intrapulmonary nodules all subcentimeter and many measuring only 2-3 mm. These are too small for biopsy and are below threshold for PET imaging. 2. Slightly prominent right hilar and subcarinal lymph nodes nonspecific potentially reactive. 3. Multiple intrahepatic cysts. No splenomegaly. Calcifications of the pancreas likely indicate prior pancreatitis. Please correlate clinically. 4. Small retroperitoneal lymph nodes not pathologically enlarged. Slight prominence of a single left external iliac chain lymph node. Please note that all CT scans at this facility use dose modulation, iterative reconstruction, and/or weight-based dosing when appropriate to reduce radiation dose to as low as reasonably achievable. Dictated by Manny Swenson MD @ 09/19/2022 5:21:19 PM (Electronically Signed) Narrative 09/19/2022 5:21 PM CDT For Patients: ??As a result of the Century Cures Act, medical imaging exams and procedure reports are released immediately into your electronic medical record. ??You may view this report before your referring provider. ??If you have questions, please contact your health care provider. INDICATION: 67 year-old male. Pancytopenia. TECHNIQUE: Contrast enhanced CT of the chest abdomen and pelvis. 100 cc nonionic Omnipaque 300 administered. COMPARISON: None. FINDINGS: CT chest: Centrilobular emphysematous type changes best appreciated in the upper lobes. There are numerous tiny intrapulmonary nodules many of which are micro nodules. There approximately 5-7 nodules in the right lung and 10 nodules in the left lung. The largest nodule in the right lung is within the right lower lobe image 76 series 3 measuring 7 mm. The largest nodule on the left is toward the left lung base image 85 series 3 measuring 4-5 mm. These nodules are below threshold for PET imaging and too small to biopsy. They are indeterminate. Postinfectious or postinflammatory type processes versus a metastatic disease processes are in the differential. Minor fibrosis or atelectasis anteromedial right lung base and lingular left upper lobe. No pleural or pericardial effusions. The trachea and mainstem bronchi are patent and clear. Normal caliber thoracic aorta. Slight prominence of a right hilar and subcarinal lymph node. Please see for example image 52 series 2 with the right hilar lymph node measuring up to nearly 1.8 cm and a subcarinal lymph node measuring 1.8 cm short axis. No central pulmonary emboli. No subcutaneous nodules. The included thyroid gland is unremarkable. CT of the abdomen and pelvis: Numerous low-attenuation lesions in the liver most compatible with cysts. Many are too small to characterize. However there is a bilobed cyst within the medial left hepatic lobe measuring 6.3 x 7.1 cm. These do not appear to be solid. No biliary ductal dilatation. No splenomegaly. Innumerable calcifications of the pancreas likely reflect changes from chronic pancreatitis. No acute pancreatitis today. No peripancreatic fat stranding. The gallbladder, adrenal glands, and kidneys are within normal limits. No solid renal mass, stone, or obstruction. Vascular calcification within a normal caliber abdominal aorta and iliac arteries. Normal inferior vena cava. The urinary bladder is unremarkable. Slight prostatic enlargement. Normal seminal vesicles. Mildly prominent left external iliac chain lymph node image 110 series 6 measuring 8 mm short axis. Few tiny normal- size normal-appearing inguinal lymph nodes. Few small periaortic/inter aortocaval retroperitoneal lymph nodes nonspecific and not pathologically enlarged. There is no evidence for small or large bowel obstruction or ileus. No evidence for omental or peritoneal nodularity. The stomach and duodenum although incompletely distended are grossly unremarkable. The included skeleton is negative for fractures. No lytic lesions. Tiny focus of sclerosis within the inferior left acetabulum image 128 series 6 likely a benign bone island. Scattered hypertrophic changes of the included thoracolumbar spine. Degenerative disc disease of the spine best appreciated at L5. Procedure Note Manny Swenson MD - 09/19/2022 For Patients: As a result of the Century Cures Act, medical imagingexams and procedure reports are released immediately into your electronicmedical record. You may view this report before your referring provider.If you have questions, please contact your health care provider. INDICATION: 67 year-old male. Pancytopenia. TECHNIQUE: Contrast enhanced CT of the chest abdomen and pelvis. 100 cc nonionicOmnipaque 300 administered. COMPARISON: None. FINDINGS: CT chest: Centrilobular emphysematous type changes best appreciated in theupper lobes. There are numerous tiny intrapulmonary nodules many of which are micronodules. There approximately 5-7 nodules in the right lung and 10 nodulesin the left lung. The largest nodule in the right lung is within the rightlower lobe image 76 series 3 measuring 7 mm. The largest nodule on theleft is toward the left lung base image 85 series 3 measuring 4-5 mm.These nodules are below threshold for PET imaging and too small to biopsy.They are indeterminate. Postinfectious or postinflammatory type processesversus a metastatic disease processes are in the differential. Minorfibrosis or atelectasis anteromedial right lung base and lingular leftupper lobe. No pleural or pericardial effusions. The trachea and mainstembronchi are patent and clear. Normal caliber thoracic aorta. Slightprominence of a right hilar and subcarinal lymph node. Please see forexample image 52 series 2 with the right hilar lymph node measuring up tonearly 1.8 cm and a subcarinal lymph node measuring 1.8 cm short axis. Nocentral pulmonary emboli. No subcutaneous nodules. The included thyroidgland is unremarkable. CT of the abdomen and pelvis: Numerous low-attenuation lesions in theliver most compatible with cysts. Many are too small to characterize.However there is a bilobed cyst within the medial left hepatic lobemeasuring 6.3 x 7.1 cm. These do not appear to be solid. No biliary ductaldilatation. No splenomegaly. Innumerable calcifications of the pancreaslikely reflect changes from chronic pancreatitis. No acute pancreatitistoday. No peripancreatic fat stranding. The gallbladder, adrenal glands,and kidneys are within normal limits. No solid renal mass, stone, orobstruction. Vascular calcification within a normal caliber abdominalaorta and iliac arteries. Normal inferior vena cava. The urinary bladderis unremarkable. Slight prostatic enlargement. Normal seminal vesicles.Mildly prominent left external iliac chain lymph node image 110 series 6measuring 8 mm short axis. Few tiny normal- size normal-appearing inguinallymph nodes. Few small periaortic/inter aortocaval retroperitoneal lymph nodesnonspecific and not pathologically enlarged. There is no evidence for small or large bowel obstruction or ileus. Noevidence for omental or peritoneal nodularity. The stomach and duodenumalthough incompletely distended are grossly unremarkable. The included skeleton is negative for fractures. No lytic lesions. Tinyfocus of sclerosis within the inferior left acetabulum image 128 series 6likely a benign bone island. Scattered hypertrophic changes of theincluded thoracolumbar spine. Degenerative disc disease of the spine bestappreciated at L5. IMPRESSION: 1. Numerous tiny intrapulmonary nodules all subcentimeter and manymeasuring only 2-3 mm. These are too small for biopsy and are belowthreshold for PET imaging. 2. Slightly prominent right hilar and subcarinal lymph nodes nonspecificpotentially reactive. 3. Multiple intrahepatic cysts. No splenomegaly. Calcifications of thepancreas likely indicate prior pancreatitis. Please correlate clinically. 4. Small retroperitoneal lymph nodes not pathologically enlarged. Slightprominence of a single left external iliac chain lymph node. Please note that all CT scans at this facility use dose modulation,iterative reconstruction, and/or weight-based dosing when appropriate toreduce radiation dose to as low as reasonably achievable. Dictated by Manny Swenson MD @ 09/19/2022 5:21:19 PM (Electronically Signed) David Ambrocio MD CT * (ABNORMAL) LIPID PANEL W REFLEX MEASURED LDL (09/09/2022 12:06 PM CDT) CHOLESTEROL,TOTAL 149 100 - 199 mg/dL 09/09/2022 12:53 PM T [facility] TRIGLYCERIDES 77 <150 mg/dL 09/09/2022 12:53 PM T [facility] HDL CHOLESTEROL 34(L) >40 mg/dL 12:53 PM T [facility] NON-HDL CHOLESTEROL 115 <145 mg/dl 09/09/2022 12:53 PM [facility] CHOL/HDL RATIO 4.38 <4.50 09/09/2022 12:53 PM CDT [facility] LDL CHOLESTEROL 100 <=130 mg/dL 09/09/2022 12:53 PM CDT [facility] VLDL CHOLESTEROL 15 <=30 mg/dL 09/09/2022 12:53 PM CDT [facility] PROVIDER ORDERED STATUS RANDOM 09/09/2022 12:53 PM CDT [facility] Blood BLOOD SPECIMEN / Unknown Butterfly / Unknown 09/09/2022 12:06 PM CDT 09/09/2022 12:07 PM CDT David Ambrocio MD CHEMISTRY [facility] [address] [place] [address] from Last 3 Months or Most Recently Relevant to Health Maintenance Advance Directives * Full Code (Latest Code Status on File) Date Activated Date Inactivated Comments 01/10/2023 2:47 PM 01/20/2023 5:38 PM Question Answer Comments Code Status Discussion: Reviewed Preferences * DNR Date Activated Date Inactivated Comments 01/10/2023 2:22 PM 01/10/2023 2:47 PM Question Answer Comments Code Status Discussion: Reviewed Preferences * DNR Date Activated Date Inactivated Comments 01/03/2023 3:04 AM 01/06/2023 5:55 PM Question Answer Comments Code Status Discussion: Reviewed Preferences wit h Care Teams Pecan Huller Relationship Specialty Start Date End Date David Ambrocio MD [address] [place] [address] PCP - General Family Practice 11/27/22 Elvira Morin RN [address] [place] [address] Nurse Navigator - Oncology Registered Nurse 10/18/22 Radha Edouard MD [address] [place] [address] Medical Oncologist Hematology and Oncology 11/21/22 Lizeth Alarcon, [employer] [address] [place] [address] Nurse Practitioner Hematology and Oncology 11/21/22 Jaylon Raymond LSW [address] [place] [address] Derrick Barge Operator 01/06/23 [facility] [address] [place] [address] 01/21/23
[2023-08-29 07:10] VITALS: BMI 28.0
[2023-08-29 07:15] VITALS: BP 163/75; PULSE 85; RESP 20; TEMP 37.1; O2SAT 97
[2023-08-29] MEDS: LACTATED RINGERS 1000 ML 1,000 ML 100 ML IV (07:25)
[2023-08-29] MEDS: SODIUM CHLORIDE 0.9 % (FLUSH) 10 ML SYRINGE IVF (07:29)
--- NOTE | 2023-08-29 07:59 | W.PM.H&PU ---
History & Physical Update History & Physical Update H&P Reviewed and patient assessed: No changes noted
--- NOTE | 2023-08-29 07:59 | PM.GSPRC ---
Operative Note Date of procedure: 08/29/23 Pre-op diagnosis: 1. 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 Post-op diagnosis: Same Type of Procedure: 1. Excisional debridement of the right lateral lower leg chronic wound 12 x 6.5 cm. Indications: 68-year-old male presented to clinic with foul order from his right lower leg chronic wound. Patient initially sustained this wound last fall and underwent 2 debridements in the past. His wound was then healing by secondary intention for months. In the last couple weeks he noticed scabs forming over the wound and in the last 8 days he noticed foul odor from his wound. He was treating his wound with Adaptic. He was seen in the emergency room and a right leg CT was obtained that showed a fluid collection overlying the right lower leg open wound with lateral leg edema. There was no evidence of a deep abscess. On clinical exam there was an open chronic wound in the right mid lateral lower leg that was measuring at least 12 x 6 cm. The wound was raised with hypergranulation tissue overlying the wound bed with necrotic tissue covering majority of the wound. There was reactive hyperemia and mild erythema inferior to the wound. Patient has been on antibiotics for cellulitis. Given patient's clinical history and his physical exam, debridement of right lower lateral wound under anesthesia was recommended. The procedure was discussed in detail. The risks associated procedure including infection, bleeding, the need for additional procedures, and healing by secondary intention were all discussed with the patient, and he agreed to proceed. Procedure Description: After discussing the risks and benefits of the procedure, the patient signed informed consent.? Regional block was administered by anesthesia in same-day surgery. The operative site was marked and the patient was brought to the operating room and placed on the operating table in supine position.? Care was taken to pad the patient's pressure points.?? The patient was then sedated by anesthesia.?? The operative site was then prepped and draped in the usual sterile fashion.? A time-out was then performed. The wound bed had necrotic hypergranulation tissue overlying the entire wound bed. This area was measuring 12 x 6.5 cm. The necrotic hypergranulation tissue was then excised with cautery and sharply with a scalpel. This excision was carried down to the scar tissue that was overlying the muscle fascia. The excised tissue was sent to pathology. Hemostasis was achieved with cautery. Versajet was also used for finer debridement of the wound bed. The final wound bed had a lot of healthy bleeding and that was controlled with Surgicel and cautery. The final wound bed was measuring 12 x 6.5 cm. The wound was then covered by sterile moist Kerlix, dry ABD, and wrapped with Kerlix roll. The lower right lower leg was then wrapped with an Mario wrap. ? The patient was then woken and transported to the recovery area in stable condition. ? The patient tolerated the procedure well. Anesthesia: MAC and regional Surgeon: Eloina Paniagua MD Estimated blood loss (mL): 40 Additional Specimen Information: 1. Right lower leg chronic wound. Condition: stable Disposition: same day
[2023-08-29 08:00] VITALS: BP 147/80; PULSE 85; RESP 20; O2SAT 97
[2023-08-29] MEDS: MIDAZOLAM HCL 1 MG/ML inj IVP (08:00)
[2023-08-29] MEDS: fentaNYL 100 MCG/2 ML inj IVP (08:00)
--- NOTE | 2023-08-29 08:06 | SUR.PREOP ---
TIME?OUT:?0756, right calf PT/RN/MDA?VERIFICATION?OF?SURGICAL?SITE,?PROCEDURE,?AND?CONSENT OBTAINED?PRIOR?TO?INVASIVE?PROCEDURE.
[2023-08-29] MEDS: CLINDAMYCIN 900 MG/50 ML-D5W 900 MG/50 ML PIGGYBACK 100 MG IVPB (08:15)
--- NOTE | 2023-08-29 09:08 | W.ANESCHARGE ---
Anesthesia Charges Start Date/Time Anesthesia Start Date: 08/29/23 Anesthesia Start Time: 08:08 Stop Date/Time Anesthesia Stop Date: 08/29/23 Anesthesia Stop Time: 09:10
[2023-08-29 09:12] VITALS: BP 117/64; PULSE 89; RESP 20; TEMP 36.9; O2SAT 99
--- NOTE | 2023-08-29 09:14 | W.PM.NB ---
Nerve Block Nerve Block Time Seen by Provider: 08:00 Date Seen: 08/29/23 Type of block requested by surgeon for post-operative analgesia: popliteal Side: right Time out performed: Yes Verification of patient name: Yes Verification of date of : Yes Site marking: site marked Name of person performing procedure: Law Continuous monitoring Was continuous monitoring of O2 sat, B/P, traffic monitor specialist, recorded every 15 minutes?: Yes Procedure Checklist: sterile prep, needles and gloves Ultrasound guided. Images saved: Yes Medications given in 5ml increments after negative aspiration: Lidocaine %: 2 mL: 20 Needle gauge: 20 Patient tolerated procedure well: Yes Additional comments: Needle noted adjacent to nerve Block Charges Block Charge (with Pro Fee): Sciatic Nerve Use of Ultrasound Machine for Block: Yes- US Guidance/pain block
--- NOTE | 2023-08-29 09:15 | W.ANESCHARGE ---
Anesthesia Charges Start Date/Time Anesthesia Start Date: 08/29/23 Anesthesia Start Time: 08:08 Stop Date/Time Anesthesia Stop Date: 08/29/23 Anesthesia Stop Time: 09:10
[2023-08-29 09:30] VITALS: BP 118/66; PULSE 82; RESP 20; O2SAT 98
[2023-08-29 09:45] VITALS: BP 126/71; PULSE 79; RESP 20; O2SAT 99
== END 2023-08-29 10:28 | disposition home or self-care (01) ==
PROVIDERS: PCP Family Medicine; Visit Provider Surgery
PROC: (CPT 11042; principal; 2023-08-29 08:00)
DX: I96 Gangrene, not elsewhere classified (principal); L97.818 Non-pressure chronic ulcer of other part of right lower leg with other specified severity; S81.801A Unspecified open wound, right lower leg, initial encounter; L03.115 Cellulitis of right lower limb; G89.18 Other acute postprocedural pain
CPT/HCPCS: 11042; 01470; 64445; 76942; 88304; J0736; J2250; J2704; J3010; J7120

== ENCOUNTER 2023-09-10 10:25 | Outpatient (CLI) | payer MEDICARE, BC, SELFPAY ==
--- OUTSIDE RECORDS SUMMARY | 2023-09-10 10:29 | XMS_ITS | Clinical Summary ---
Author Organization [facility] Address [place], [place] [address] Care Team Providers Care Architecture Analyst Name Role Phone CarleneElvira james Stefano RN Unavailable Radha Edouard MD Unavailable Lizeth Alarcon PRODUCTION TROUBLESHOOTER Unavailable David Ambrocio MD Primary Care Provider [phone] Jaylon Raymond BIAS CUTTER HELPER Unavailable [phone] [facility] Allergies Active Allergy Reactions Criticality Noted Date Comments Venom-Yellow Jacket Edema Unknown 01/22/2023 Medications Medication Sig Dispensed Refills Start Date End Date Status multivitamin (MVI) tablet Take 1 tablet by mouth once daily. 0 08/24/2011 Active fluticasone (50 mcg per actuation) nasal solution (FLONASE)Indicat ions:Seasonal allergic rhinitis, unspecified trigger 1 SPRAY IN EACH NOSTRIL 2 TIMES DAILY. 16 g 12 04/03/2020 Active cholecalciferol, Vitamin D3, (Vitamin D-3) 5,000 unit tab tablet Take 5,000 units by mouth once daily. Active vitamin B complex (B COMPLETE ORAL) Take 1 Tablet by mouth once daily. Active Bismuth Tribrom-Petrolat um,Wh (Xeroform) 5 X 9 bndgIndications: Wound of right lower extremity, subsequent encounter Apply topically to affected area(s). 50 Each 2 02/11/2023 Active ferrous sulfate (IRON ORAL) Take by mouth. Active medication order Robin ons:Wound of right lower extremity, subsequent encounter Apply 1 unit topically to affected area(s) once daily. Hydrofera Blue Ready antibacterial foam dressing 8x8. Use one per day. 30 Each 08/15/2023 Active WalkerIndication s:Arthralgia, unspecified joint Walker with front wheels for home use. 1 Each 01/06/2023 4 Discontinued (*Med complete/Reg imen complete/Lev el of care change) nicotine 14 mg/24 hr (NICODERM; HABITROL) 14 mg/24 hr patchIndications :Pancytopenia (HC) Apply 1 Patch on dry, clean, hairless skin once daily. 21 Patch 2 03/24/2023 4 Discontinued (*Med complete/Reg imen complete/Lev el of care change) doxycycline 100 mg tabletIndication s:Abscess of right lower extremity Take 1 Tablet (100 mg) by mouth two times daily for 7 days. 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 MEMORY LOSS, INTERMITTANT 05/16/2006 Encounters Date Type Department Care Team Description 08/29/2023 Lab Requisition [facility] [phone] Eloina Paniagua MD 08/27/2023 Orders Only [facility] Scanner 1 scan: (1-Ord) [place], LOWER LEG RT W/COM, 08/27/2023 08/23/2023 7:26 PM CDT - 08/23/2023 11:10 PM CDT Emergency [address] [address] Elvira Thayer PA Abscess of right lower extremity (Primary Dx); Neutropenia, unspecified type (HC) Discharge Disposition: Home Self Care 08/23/2023 Travel 08/12/2023 11:00 AM CDT Office Visit [facility] [address] [facility] [place] [address] Radha Edouard MD Follow Up (Pancytopenia (HC) [D61.818]//) 08/12/2023 Travel 08/06/2023 9:47 AM CDT - 08/06/2023 11:59 PM CDT Hospital Encounter [facility] [address] [facility] [place] [address] Pancytopenia (HC) [D61.818] 08/06/2023 Travel 07/22/2023 10:15 AM CDT Office Visit [facility] [place] [address] [address] [place] [address] Faraz Henson DPM Consult (Bilateral foot pain and swelling, R>L) 07/22/2023 Travel from Last 3 Months Immunizations Name Administration [...] Info) Description 11/12/2023 9:00 AM CDT Appointment [facility] [address] [place] [address] 11/19/2023 11:15 AM CDT Office Visit [facility] [address] [place] [phone] Lizeth Alarcon, PRODUCTION TROUBLESHOOTER [address] [place] [address] Health Maintenance Due Date Last Done Comments Pneumococcal series for age 65+ (1 of 2 - PCV) 1961 Colonoscopy through age 75 2000 Zoster (shingles) series for age 50+ (1 of 2) 2005 Medicare Wellness for age 65+ 2020 COVID-19 vaccine series (1 - 2022- season) 2022 Depression screening for age 12+ [...] Procedure Name Priority Date/Time Associated Diagnosis Comments LAB TRACKING EVENT Routine 08/29/2023 9: 05 AM CDT PATH TISSUE EXAM Routine 08/29/2023 8:40 AM CDT SCAN-CT INTERPRETATION 12:[address] LOWER EXTREMITY RIGHT W STAT 08/23/2023 [...] Pancytopenia (HC) [D61.818] HEPATIC FUNCTION PANEL Today 9:54 AM CDT Pancytopenia (HC) [D61.818] BASIC [...] Recently Relevant to Health Maintenance Results * LAB TRACKING EVENT (08/29/2023 9:05 AM CDT) Other (Other) Client Collect / Unknown 08/29/2023 9:05 AM CDT 08/29/2023 1:20 PM CDT Eloina Paniagua MD LAB BILL ONLY [facility] [address] [place] [address], * PATH TISSUE EXAM (08/29/2023 8:40 AM CDT) Case Report Pathology Report ?Case: [id number] ? Authorizing Provider: ??Eloina Paniagua MD ?Collected: ? 08/29/2023 0840 ? Ordering Location: ? [facility] ?Received: ?08/29/2023 1517 ? Pathologist: ? Georgie Rocha MD ? Specimen: ?Right Leg, Right leg chronic wound necrotic tissue ? 09/03/2023 3:31 PM T [facility] Final Diagnosis SKIN AND SOFT TISSUE, RIGHT LEG CHRONIC WOUND, EXCISION: 1. ??Ulcer bed with reactive epithelial hyperplasia, dense dermal mixed inflammatory infiltrate and prominent fibrosis 2. ??No evidence of vasculitis or malignancy right leg 09/03/2023 3:[address] [facility] Clinical Information Right leg chronic wound necrotic tissue. 09/03/2023 3:31 PM T [facility] Gross Description A) Received in formalin, labeled with the patient's name and right leg chronic wound necrotic tissue, is a portion of skin excision measuring 11.5 x 5.5 cm, excised to 1.0 cm deep. The skin surface is entirely dark brown mummified and necrotic. The resection margin is inked blue. The cut surface shows red-brown skeletal. No solid mass is identified. Engineer System Administrator sections are submitted in 2 cassettes. TTP 08/29/2023 09/03/2023 3:31 PM T [facility] Microscopic Description The final diagnosis is based on microscopic examination of appropriate sections of all specimens. The presence of blue ink is confirmed on tissue sections. 09/03/2023 3:31 PM T [facility] Additional Information Interpreted at [facility] CAPPTURE [facility], Central Laboratory - [address], [place] [address] 09/03/2023 3:[address] [facility] Other (Right Leg) 08/29/2023 8:40 AM CDT 08/29/2023 3:17 PM CDT Eloina Paniagua MD PATHOLOGY/CYTOLOGY [facility] [address] [place] [address], * SCAN-CT INTERPRETATION (08/27/2023 12:00 AM CDT) Anatomical Region Laterality Modality Other Scanner OTHER * CT LOWER EXTREMITY RIGHT W (08/23/2023 [...] For Patients: As a result of the Cures Act, medical imagingexams and procedure reports [...] (ABNORMAL) SEDIMENTATION RATE (08/23/2023 8:13 PM CDT) [facility] SEDIMENTATION RATE 51(H) <20 mm/hr 2023 8:38 PM CDT [facility] Blood BLOOD SPECIMEN / Unknown IV Start / Unknown 08/23/2023 8:13 PM CDT 08/23/2023 8:16 PM CDT Elvira MICHELLE HEMATOLOGY [facility] [address] [place] [address] * (ABNORMAL) CBC WITH AUTO DIFFERENTIAL (08/23/2023 8:13 PM CDT) Only the most recent of2 resultswithin the time period is included. [facility] WHITE BLOOD COUNT 1.9(L) 4.5 - 11.0 thou/cu mm 08/23/2023 9:06 PM [facility] RED BLOOD COUNT 3.30(L) 4.30 - 5.90 mil/cu mm 08/23/2023 9:06 PM [facility] HEMOGLOBIN 7.4(L) 13.5 - 17.5 g/dL 08/23/2023 9:06 PM [facility] HEMATOCRIT 26.5(L) 37.0 - 53.0 % 08/23/2023 9:06 PM [facility] MCV 80 80 - 100 fL 08/23/2023 9:06 PM [facility] MCH 22.4(L) 26.0 - 34.0 pg 08/23/2023 9:06 PM [facility] MCHC 27.9(L) 32.0 - 36.0 g/dL 08/23/2023 9:06 PM [facility] RDW 19.3(H) 11.5 - 15.5 % 08/23/2023 9:06 PM [facility] PLATELET COUNT 272 140 - 440 thou/cu mm 08/23/2023 9:06 PM [facility] MPV 10.0 6.5 - 11.0 fL 08/23/2023 9:06 PM [facility] Blood BLOOD SPECIMEN / Unknown IV Start / Unknown 08/23/2023 8:13 PM CDT 08/23/2023 8:16 PM CDT Elvira MICHELLE HEMATOLOGY [facility] [address] [place] [address] * (ABNORMAL) RED CELL MORPHOLOGY (08/23/2023 8:13 PM CDT) Only the most recent of2 resultswithin the time period is included. Pathologist [facility] ELLIPTOCYTES Moderate 08/23/2023 9:06 PM [facility] POLYCHROMASIA Moderate 08/23/2023 9:06 PM CDT [facility] RBC COMMENT Present(A) RBC morphology appears normal, RBC morphology within normal limits for newborns. 08/23/2023 9:06 PM CDT [facility] LARGE PLATELETS Present 9:06 PM CDT [facility] Blood BLOOD SPECIMEN / Unknown IV Start / Unknown 08/23/2023 8:13 PM CDT 08/23/2023 8:16 PM CDT Elvira MICHELLE HEMATOLOGY Performing Organization Address City/[facility]/ZIP Co de Phone Number [facility] [address] [place], [place] [phone] * PLATELET ESTIMATE (08/23/2023 8:13 PM CDT) Only the most recent of2 resultswithin the time period is included. PLATELET ESTIMATE Adequate Adequate, No estimate 08/23/2023 9:06 PM CDT [facility] Blood BLOOD SPECIMEN / Unknown IV Start / Unknown 08/23/2023 8:13 PM CDT 08/23/2023 8:16 PM CDT Elvira MICHELLE HEMATOLOGY Performing Organization Address [facility] Co de Phone Number [facility] [address] [place], [place] [phone] * LACTATE VENOUS (08/23/2023 8:13 PM CDT) LACTATE,VENOUS 0.5 0.5 - 2.0 mmol/L 08/23/2023 8:40 PM CDT [facility] Blood BLOOD SPECIMEN / Unknown IV Start / Unknown 08/23/2023 8:13 PM CDT 08/23/2023 8:16 PM CDT Elvira MICHELLE CHEMISTRY Performing Organization Address City/[facility]/ZIP Co de Phone Number [facility] [address] [place] [address] * (ABNORMAL) MANUAL DIFFERENTIAL (08/23/2023 8:13 PM CDT) Only the most recent of2 resultswithin the time period is included. [facility] % NEUTROPHILS 20.0 % 08/23/2023 9:06 PM T [facility] % LYMPHOCYTES 48.0 % 08/23/2023 9:06 PM T [facility] % MONOCYTES 31.0 % 08/23/2023 9:06 PM T [facility] % EOSINOPHILS 1.0 % 08/23/2023 9:06 PM [facility] % BASOPHILS 0.0 % 08/23/2023 9:06 PM [facility] NEUTROPHILS ABSOLUTE 0.4(L) 1.7 - 7.0 thou/cu mm 08/23/2023 9:06 PM T [facility] LYMPHOCYTES ABSOLUTE 0.9 0.9 - 2.9 thou/cu mm 08/23/2023 9:06 PM T [facility] MONOCYTES ABSOLUTE 0.6 <0.9 thou/cu mm 08/23/2023 9:06 PM [facility] EOSINOPHILS ABSOLUTE 0.0 <0.5 thou/cu mm 08/23/2023 9:06 PM [facility] BASOPHILS ABSOLUTE 0.0 <0.3 thou/cu mm 08/23/2023 9:06 PM [facility] Blood BLOOD SPECIMEN / Unknown IV Start / Unknown 08/23/2023 8:13 PM CDT 08/23/2023 8:16 PM CDT Elvira MICHELLE HEMATOLOGY [facility] [address] [place], [place] [phone] * (ABNORMAL) C-REACTIVE PROTEIN (08/23/2023 8:13 PM CDT) [facility] C-REACTIVE PROTEIN 2.8(H) <0.5 mg/dL 08/23/2023 8:41 PM [facility] Blood BLOOD SPECIMEN / Unknown IV Start / Unknown 08/23/2023 8:13 PM CDT 08/23/2023 8:16 PM CDT Elvira MICHELLE CHEMISTRY [facility] [address] [place] [address] * (ABNORMAL) BASIC METABOLIC PANEL (08/23/2023 8:13 PM CDT) Only the most recent of2 resultswithin the time period is included. SODIUM 133(L) 136 - 145 mmol/L 08/23/2023 8:41 PM [facility] POTASSIUM 4.0 3.5 - 5.1 mmol/L 08/23/2023 8:41 PM [facility] CHLORIDE 104 98 - 107 mmol/L 08/23/2023 8:41 PM [facility] CO2,TOTAL 22 22 - 29 mmol/L 08/23/2023 8:41 PM [facility] ANION GAP 7 5 - 18 08/23/2023 8:41 PM [facility] GLUCOSE 80 70 - 99 mg/dL 08/23/2023 8:41 PM [facility] CALCIUM 8.4(L) 8.8 - 10.2 mg/dL 08/23/2023 8:41 PM [facility] BUN 14 8 - 23 mg/dL 08/23/2023 8:41 PM [facility] CREATININE 1.25(H) 0.70 - 1.20 mg/dL 08/23/2023 8:41 PM [facility] BUN/CREAT RATIO 11 10 - 20 8:41 PM [facility] eGFR 63(L) >90 mL/min/1.7 3m2 08/23/2023 8:41 PM [facility] Comment:As of 2021, eG FR is calculated by the CKD-EPI creatinine equation without race adjustment. ??eGFR can be influenced by muscle mass, exercise, and diet. ??The reported eGFR is an estimation only and is only applicable if the renal function is stable. Blood BLOOD SPECIMEN / Unknown IV Start / Unknown 08/23/2023 8:13 PM CDT 08/23/2023 8:16 PM CDT Elvira MICHELLE CHEMISTRY [facility] [address] [place] [address] * PERIPHERAL BLD MORPHOLOGY (08/06/2023 9:54 AM CDT) Case Report Special Hematology Report ? Case: [id number] ? Authorizing Provider: ??Lizeth Alarcon, PRODUCTION TROUBLESHOOTER ? Collected: ? 08/06/2023 09 ? Ordering Location: ? [facility] ? Received: ?08/06/2023 0954 ? [facility] ? Pathologist: ? Henrique rAana, ? MD ? Specimen: ?Blood ? 08/10/2023 10:29 PM CDT [email or web address] Final Diagnosis PERIPHERAL BLOOD: 1. Changes consistent with myeloid neoplasm, including: ?? a. 2% circulating blasts ?? b. Moderate normocytic anemia (MCV at lower limit of normal) ?? c. 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 See comment 08/10/2023 10:29 PM CDT [email or web address] Comment As seen in multiple prior blood morphology cases, the findings continue to be compatible with a myeloid neoplasm. A bone marrow biopsy would be required for definitive diagnosis and classification of this process, if clinically feasible (clinical correlation recommended). This case was also reviewed by Mari Armijo MT, MS ([facility]). 08/10/2023 10:29 PM CDT [email or web address] Clinical Information The patient is a 68-year-old male. Pertinent clinical information: Pancytopenia, suspicious for a myeloid neoplasm. Per EPIC: Additional history includes hypertension, night sweats, and tobacco use. His most recent peripheral blood morphology March 2023 ([id number]) showed features suggestive of a myeloid neoplasm with a moderate normocytic anemia and leukopenia reflecting mild neutropenia with dysgranulopoiesis. 08/10/2023 10:29 PM CDT [email or web address] CBC and Differential HEMATOLOGY PARAMETERS Tested at: ??[facility] ? RESULTS ??EXPECTED VALUES WBC: ? 1.8 ?4.5-81o0729/cumm ?DECREASED RBC: ? 3.79 ? 4.30-5.90 mil/cumm ??DECREASED HGB: ? 8.7 ?13.5-17.5 gm/di ? DECREASED HCT: ? 30.3 ? 37-53% ?DECREASED MCV: ? 80.0 ? 80-100 fl ? NORMOCYTIC MCH: ? 23.0 ? 26-34 pg ?DECREASED MCHC: ?28.7 ? 32-36 gm/dl ? HYPOCHROMIC RDW: ? 18.9 ? 11.5-15.5% ?ELEVATED PLT: ? 293 ?140-182a3363/uL ? MPV: ? 9.5 ?6.5-11 fl ? Retic: ?? 5.4 ?0.5-1.5% ?ELEVATED Differential ?Absolute (%) ?Expected (%) ?(x10*9/L) ? (x10*9/L) Neutrophils: ?0.4 (21) ?1.7-7.0 (42-72%) ?DECREASED Lymphocytes: ?1.1 (62) ?0.9-2.9 (20-44%) ?? Monocytes: ?0.2 (12) ? <0.9 (0-11%) Eosinophils: ?0.0 (2) ?<0.5 (0-2%) Basophils: ?0.0 (1) ?<0.3 (<3.0%) Blasts ?0.0 (2) ? 0 ? BLASTS ?? 08/10/2023 10:29 PM CDT [facility] Microscopic Description The final diagnosis is based on microscopic examination of an appropriately stained blood smear. 08/10/2023 10:29 PM CDT [facility] Additional Information Interpreted at [facility], Central Laboratory - [address] [place] [id number] 08/10/2023 10:29 PM CDT [facility] Blood BLOOD SPECIMEN / Unknown [...] Rfl: 0This procedure was originally ordered at [facility]. Lizeth Alarcon NP HEMATOLOGY Performing Organization Address [facility]/ZIP Co de Phone Number [facility] [address] [address], [place] * (ABNORMAL) RETICULOCYTES (08/06/2023 9:54 AM CDT) RETIC% 5.4(H) 0.5 - 1.5 % 08/06/2023 10:16 PM CDT [facility] RETIC (ABSOLUTE) 0.21(H) 0.03 - 0.08 mil/cu mm 08/06/2023 10:16 PM CDT [facility] Blood BLOOD SPECIMEN / Unknown Venipuncture / Unknown 08/06/2023 9:54 AM CDT 08/06/2023 9:54 AM CDT Narrative [facility] - 08/06/2023 10:16 PM CDT This procedure was originally ordered at [facility]. Lizeth Alarcon NP HEMATOLOGY Performing Organization Address [facility]/ZIP Co de Phone Number [facility] [address] [address], [place] * (ABNORMAL) HEPATIC FUNCTION PANEL (08/06/2023 9:54 AM CDT) ALBUMIN 3.1(L) 4.0 - 4.9 g/dL 08/06/2023 10:19 AM CDT [facility] PROTEIN,TOTAL 9.5(H) 6.0 - 8.0 g/dL 08/06/2023 10:19 AM CDT [facility] BILIRUBIN,TOTAL 0.6 0.0 - 1.2 mg/dL 08/06/2023 10:19 AM CDT [facility] BILIRUBIN,DIRECT <0.2 0.0 - 0.3 mg/dL 08/06/2023 10:19 AM CDT [facility] BILIRUBIN,INDIRE CT 08/06/2023 10:19 AM CDT [facility] Comment:Unable to calculate, Direct Bili <0.2 ALK PHOSPHATASE 87 40 - 129 IU/L 08/06/2023 10:19 AM CDT [facility] ALT (SGPT) 9(L) 10 - 50 IU/L 08/06/2023 10:19 AM CDT [facility] AST (SGOT) 39 10 - 50 IU/L 08/06/2023 10:19 AM CDT [facility] Blood BLOOD SPECIMEN / Unknown Venipuncture / Unknown 08/06/2023 9:54 AM CDT 08/06/2023 9:54 AM CDT Lizeth Alarcon NP CHEMISTRY Performing Organization Address City/State/[facility] Co de Phone Number [facility] [address] [place] [address] * CT CHEST ABDOMEN PELVIS WO (01/03/2023 [...] For Patients: As a result of the Cures Act, medical imagingexams and procedure reports [...] Reactive Non Reactive 10/11/2022 12:08 PM CDT [facility] ([facility]) Blood BLOOD SPECIMEN / Unknown Venipuncture / Unknown 10/09/2022 9:06 AM CDT 10/09/2022 9:06 AM CDT Narrative [facility] ([facility]) - 10/11/2022 12:08 PM CDT Performed at: ??[address] ??[id number] Medication Reconciliation Technician: Zane Rebolledo MD, Phone: ??[phone] Radha Edouard MD LABORATORY [facility] ([facility]) [address] [place] [address], [place] * CT CHEST ABDOMEN PELVIS W [...] - 199 mg/dL 09/09/2022 12:53 PM T [facility] TRIGLYCERIDES 77 <150 mg/dL 09/09/2022 12:53 PM T [facility] HDL CHOLESTEROL 34(L) >40 mg/dL 12:53 PM T [facility] NON-HDL CHOLESTEROL 115 <145 mg/dl 09/09/2022 12:53 PM [facility] CHOL/HDL RATIO 4.38 <4.50 09/09/2022 12:53 PM CDT [facility] LDL CHOLESTEROL 100 <=130 mg/dL 09/09/2022 12:53 PM CDT [facility] VLDL CHOLESTEROL 15 <=30 mg/dL 09/09/2022 12:53 PM CDT [facility] PROVIDER ORDERED STATUS RANDOM 09/09/2022 12:53 PM CDT [facility] Blood BLOOD SPECIMEN / Unknown Butterfly / Unknown 09/09/2022 12:06 PM CDT 09/09/2022 12:07 PM CDT David Ambrocio MD CHEMISTRY [facility] [address] [place], [place] [phone] from Last 3 Months or Most Recently [...] Discussion: Reviewed Preferences wit h Care Teams Architecture Analyst Relationship Specialty Start Date End Date David Ambrocio MD [address] [place] [address] PCP - General Family Practice 11/27/22 Elvira Morin, SAHIL [address] [place] [address] Nurse Navigator - Oncology Registered Nurse 10/18/22 Radha Edouard MD [address] [place] [address] Medical Oncologist Hematology and Oncology 11/21/22 Lizeth Alarcon, PRODUCTION TROUBLESHOOTER [address] [place] [address] Nurse Practitioner Hematology and Oncology 11/21/22 Jaylon Raymond LSW [address] [place] [address] Qm Consultant 01/06/23 [facility] [address] [place] [address] 01/21/23
== END 2023-09-10 10:26 | disposition home or self-care (01) ==
PROVIDERS: PCP Family Medicine; Visit Provider Internal Medicine
DX: D64.9 Anemia, unspecified (principal); Z13.228 Encounter for screening for other metabolic disorders; Z13.21 Encounter for screening for nutritional disorder
CPT/HCPCS: 80053; 82607; 82746; 83540; 83550; 85045

== ENCOUNTER 2023-09-23 12:48 | Outpatient (CLI) | payer MEDICARE, BC, SELFPAY ==
--- OUTSIDE RECORDS SUMMARY | 2023-09-23 12:50 | XMS_ITS | Clinical Summary ---
Author Organization [facility] Address [place], [place] [address] Care Team Providers Care Ice Skating Teacher Name Role Phone CarleneElvira james Stefano RN Unavailable Radha Edouard MD Unavailable Lizeth Alarcon WHIP OPERATOR Unavailable David Ambrocio MD Primary Care Provider Jaylon Raymond BARREL LATHE OPERATOR OUTSIDE Unavailable [phone] [facility] Un[facility] [phone] Allergies Active Allergy Reactions Criticality Noted Date [...] ORAL) Take by mouth. Active medication order composerIndicatio ns:Wound of right lower extremity, subsequent encounter Apply 1 unit topically to affected area(s) once daily. Hydrofera Blue Ready antibacterial foam dressing 8x8. Use one per day. 30 Each 08/15/2023 Active doxycycline 100 mg tabletIndications :Abscess of right lower extremity Take 1 Tablet (100 mg) by mouth two times daily for 7 days. 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 MEMORY LOSS, INTERMITTANT 05/16/2006 Encounters Date Type Department Care Team Description 09/10/2023 Lab Requisition [facility] [phone] David Gordon MD 08/29/2023 Lab Requisition [facility] [phone] Eloina Paniagua MD 08/27/2023 Orders Only [facility] Scanner 1 scan: (1-Ord) [place], LOWER LEG RT W/COM, 08/27/2023 08/23/2023 7:26 PM CDT - 08/23/2023 11:10 PM CDT Emergency [facility] [address] [place] [address] Elvira Thayer PA Abscess of right lower extremity (Primary Dx); Neutropenia, unspecified type (HC) Discharge Disposition: Home Self Care 08/23/2023 Travel 08/12/2023 11:00 AM CDT Office Visit [facility] [address] [place] [address] Radha Edouard MD Follow Up (Pancytopenia (HC) [D61.818]//) 08/12/2023 Travel 08/06/2023 9:47 AM CDT - 08/06/2023 11:59 PM CDT Hospital Encounter [facility] [address] [place] [address] Pancytopenia (HC) [D61.818] 08/06/2023 Travel 07/22/2023 10:15 AM CDT Office Visit [facility] [place] [address] [facility] [address] [place] [place] [address] Faraz Henson R, DPM Consult (Bilateral foot pain and swelling, [...] Date Smoking Tobacco: Every Day Cigarettes 1 55.5 Started: 1968 Passive Smoke Exposure: Current Smokeless [...] Info) Description 11/12/2023 9:00 AM CDT Appointment [facility] [address] [place] [address] 11/19/2023 11:15 AM CDT Office Visit [facility] [address] [place] [phone] Lizeth Alarcon, SHANTEL [address] [place] [address] Health Maintenance Due Date Last Done Comments Pneumococcal series for age 65+ (1 of 2 - PCV) 1961 Colonoscopy through age 75 2000 Zoster (shingles) series for age 50+ (1 of 2) 2005 Medicare Wellness for age 65+ 2020 COVID-19 vaccine series ( - 2022- season) 2022 Depression screening for [...] Associated Diagnosis Comments LAB TRACKING EVENT Routine 09/10/2023 10 :34 AM CDT PERIPHERAL BLD MORPHOLOGY Routine 09/10/2023 10:34 AM CDT LAB TRACKING EVENT Routine 08/29/2023 9: 05 [...] Health Maintenance Results * LAB TRACKING EVENT (09/10/2023 10:34 AM CDT) Only the most recent of2 resultswithin the time period is included. Other (Other) Client Collect / Unknown 09/10/2023 10:34 AM CDT 09/10/2023 6:15 PM CDT David Gordon MD LAB BILL ONLY [facility] LABORATORY [address] [place] [address], * PERIPHERAL BLD MORPHOLOGY (09/10/2023 10:34 AM CDT) Only the most recent of2 resultswithin the time period is included. Case Report Special Hematology Report ? Case: [id number] ? Authorizing Provider: ??David Gordon MD ?Collected: ? 09/10/2023 1034 ? Ordering Location: ? [facility] ?Received: ?09/10/20232124 ? Pathologist: ? Rolando Retana MD ? Specimen: ?Peripheral Blood ? 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 1-2% circulating blasts 2. Moderate microcytic hypochromic anemia with reticulocytosis (6.7%) 3. 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 Mild absolute monocytosis 5. See comment 09/12/2023 4:51 PM CDT [facility] LABORATORY-C ENTRAL LABORATORY Comment Since the last described peripheral blood morphology 08/06/2023 ([id number]), the blast count is roughly unchanged. The absolute neutrophil count has increased from 0.4-1.4 thou/cumm. 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 The differential diagnosis for the microcytic anemia includes iron deficiency, anemia of chronic disease, concurrent anemia of renal insufficiency, and medication effect. Recommend correlation with serum iron studies, including ferritin and soluble transferrin receptor assay, may be helpful further characterizing this process. There are no definitive findings to suggest hemolysis. ??The possibility of partially-treated or recently-treated iron deficiency might also explain the microcytic hypochromic anemia with reticulocytosis. If a more detailed characterization of the patient's blood findings is warranted clinically, bone marrow examination should be considered. This case was also reviewed by Mari Armijo MT, MS ([facility]). 09/12/2023 4:51 PM CDT [facility] LABORATORY-C ENTRAL LABORATORY Clinical Information The patient is a 60-year-old male. Pertinent clinical information: Anemia. Per EPIC: She visited the ER 08/23/2023 for an abscess and neutropenia. ??Additional history includes hypertension. His most recent peripheral blood morphology 08/06/2023 ([id number]) showed changes consistent with a myeloid neoplasm with 2% circulating blasts, moderate normocytic anemia, and leukopenia with marked absolute neutropenia with dysgranulopoiesis. 08/23/23 20:13 CREATININE: 1.25 (H) eGFR: ? 63 (L) 09/12/2023 4:51 PM CDT [facility] LABORATORY-C ENTRAL LABORATORY CBC and Differential HEMATOLOGY PARAMETERS Tested at: ??[facility] Laboratory-Central Laboratory ? RESULTS ??EXPECTED VALUES WBC: ? 3.3 ?4.5-14s7305/cumm ?DECREASED RBC: ? 3.65 ? 4.30-5.90 mil/cumm ??DECREASED HGB: ? 8.1 ?13.5-17.5 gm/di ? DECREASED HCT: ? 28.8 ? 37-53% ?DECREASED MCV: ? 79.0 ? 80-100 fl ? MICROCYTIC MCH: ? 22.0 ? 26-34 pg ?DECREASED MCHC: ?28.0 ? 32-36 gm/dl ? HYPOCHROMIC RDW: ? 20.3 ? 11.5-15.5% ?ELEVATED PLT: ? 310 ?140-114b3818/uL ? Retic: ?? 6.7 ?0.5-1.5% ?ELEVATED Differential ?Absolute (%) ?Expected (%) ?(x10*9/L) ? (x10*9/L) Neutrophils: ?1.4 (42.6) ?1.7-7.0 (42-72%) ??DECREASED Lymphocytes: ?0.4 (12.2) ?0.9-2.9 (20-44%) ??DECREASED Monocytes: ?1.2 (36.5) ? <0.9 (0-11%) ? ELEVATED Eosinophils: ?0.2 (6.1) ?<0.5 (0-2%) ? 09/12/2023 4:51 PM CDT [facility] Microscopic Description The final diagnosis is based on microscopic examination of an appropriately stained blood smear. 09/12/2023 4:51 PM CDT [facility] Additional Information Interpreted at [facility], Central Laboratory - [address] [place] [place] [address] 09/12/2023 4:51 PM CDT [facility] Blood (Peripheral Blood) 09/10/2023 10:34 AM CDT 09/10/2023 9:25 PM CDT David Gordon MD HEMATOLOGY [facility]-CENTRAL LABORAT[facility] [address] [place] [address], * PATH TISSUE EXAM (08/29/2023 8:40 AM CDT) Case Report Pathology Report ?Case: [id number] ? Authorizing Provider: ??Eloina Paniagua MD ?Collected: ? 08/29/2023 0840 ? Ordering Location: ? [facility] ?Received: ?08/29/2023 1517 ? Pathologist: ? Georgie Rocha MD ? Specimen: ?Right Leg, Right leg chronic wound necrotic tissue ? 09/03/2023 3:[address] [facility] Final Diagnosis SKIN AND SOFT TISSUE, RIGHT LEG CHRONIC WOUND, EXCISION: 1. ??Ulcer bed with reactive epithelial hyperplasia, dense dermal mixed inflammatory infiltrate and prominent fibrosis 2. ??No evidence of vasculitis or malignancy right leg 09/03/2023 3:[address] [facility] Clinical Information Right leg chronic wound necrotic tissue. 09/03/2023 3:31 PM [facility] Gross Description A) Received in formalin, labeled with the patient's name and right leg chronic wound necrotic tissue, is a portion of skin excision measuring 11.5 x 5.5 cm, excised to 1.0 cm deep. The skin surface is entirely dark brown mummified and necrotic. The resection margin is inked blue. The cut surface shows red-brown skeletal. No solid mass is identified. Irrigator Head sections are submitted in 2 cassettes. TTP 08/29/2023 09/03/2023 3:[address] [facility] Microscopic Description The final diagnosis is based on microscopic examination of appropriate sections of all specimens. The presence of blue ink is confirmed on tissue sections. 09/03/2023 3:[address] [facility] Additional Information Interpreted at [facility], Central Laboratory - [address], [place] [address] 09/03/2023 3:31 PM CDT [facility] LABORATORY-C ENTRAL LABORATORY Other (Right Leg) 08/29/2023 8:40 AM CDT 08/29/2023 3:17 PM CDT Eloina Paniagua MD PATHOLOGY/CYTOLOGY [facility]-CENTRAL LABORATORY [address] [place] [address], * SCAN-CT INTERPRETATION (08/27/2023 12:00 AM CDT) [...] (ABNORMAL) SEDIMENTATION RATE (08/23/2023 8:13 PM CDT) SEDIMENTATION RATE 51(H) <20 mm/hr 2023 8:38 PM CDT [facility] Blood BLOOD SPECIMEN / Unknown IV Start / Unknown 08/23/2023 8:13 PM CDT 08/23/2023 8:16 PM CDT Elvira MICHELLE HEMATOLOGY [facility] [address] [place] [address] * (ABNORMAL) CBC WITH AUTO DIFFERENTIAL (08/23/2023 8:13 PM CDT) Only the most recent of2 resultswithin the time period is included. WHITE BLOOD COUNT 1.9(L) 4.5 - 11.0 thou/cu mm 08/23/2023 9:06 PM [facility] RED BLOOD COUNT 3.30(L) 4.30 - 5.90 mil/cu mm 08/23/2023 9:06 PM [facility] HEMOGLOBIN 7.4(L) 13.5 - 17.5 g/dL 08/23/2023 9:06 PM [facility] HEMATOCRIT 26.5(L) 37.0 - 53.0 % 08/23/2023 9:06 PM [facility] MCV 80 80 - 100 fL 08/23/2023 9:06 PM [facility] MCH 22.4(L) 26.0 - 34.0 pg 08/23/2023 9:06 PM [facility] MCHC 27.9(L) 32.0 - 36.0 g/dL 08/23/2023 9:06 PM [facility] RDW 19.3(H) 11.5 - 15.5 % 08/23/2023 9:06 PM [facility] PLATELET COUNT 272 140 - 440 thou/cu mm 08/23/2023 9:06 PM T [facility] MPV 10.0 6.5 - 11.0 fL 08/23/2023 9:06 PM [facility] Blood BLOOD SPECIMEN / Unknown IV Start / Unknown 08/23/2023 8:13 PM CDT 08/23/2023 8:16 PM CDT Elvira MICHELLE HEMATOLOGY [facility] [address] [place] [address] * (ABNORMAL) RED CELL MORPHOLOGY (08/23/2023 8:13 PM CDT) Only the most recent of2 resultswithin the time period is included. [facility] ELLIPTOCYTES Moderate 08/23/2023 9:06 PM CDT [facility] POLYCHROMASIA Moderate 08/23/2023 9:06 PM CDT [facility] RBC COMMENT Present(A) RBC morphology appears normal, RBC morphology within normal limits for newborns. 08/23/2023 9:06 PM CDT [facility] LARGE PLATELETS Present 9:06 PM CDT [facility] Blood BLOOD SPECIMEN / Unknown IV Start / Unknown 08/23/2023 8:13 PM CDT 08/23/2023 8:16 PM CDT Elvira MICHELLE HEMATOLOGY [facility] [address] [place] [address] * PLATELET ESTIMATE (08/23/2023 8:13 PM CDT) Only the most recent of2 resultswithin the time period is included. [facility] PLATELET ESTIMATE Adequate Adequate, No estimate 08/23/2023 9:06 PM CDT [facility] Blood BLOOD SPECIMEN / Unknown IV Start / Unknown 08/23/2023 8:13 PM CDT 08/23/2023 8:16 PM CDT Elvira MICHELLE HEMATOLOGY [facility] [address] [place] [address] * LACTATE VENOUS (08/23/2023 8:13 PM CDT) [facility] LACTATE,VENOUS 0.5 0.5 - 2.0 mmol/L 08/23/2023 8:40 PM CDT [facility] Blood BLOOD SPECIMEN / Unknown IV Start / Unknown 08/23/2023 8:13 PM CDT 08/23/2023 8:16 PM CDT Elvira MICHELLE CHEMISTRY Performing Organization Address City/[facility]/ZIP Co de Phone Number [facility] [address] [place] [address] * (ABNORMAL) MANUAL DIFFERENTIAL (08/23/2023 8:13 PM CDT) Only the most recent of2 resultswithin the time period is included. % NEUTROPHILS 20.0 % 08/23/2023 9:06 PM [facility] % LYMPHOCYTES 48.0 % 08/23/2023 9:06 PM [facility] % MONOCYTES 31.0 % 08/23/2023 9:06 PM [facility] % EOSINOPHILS 1.0 % 08/23/2023 9:06 PM [facility] % BASOPHILS 0.0 % 08/23/2023 9:06 PM [facility] NEUTROPHILS ABSOLUTE 0.4(L) 1.7 - 7.0 thou/cu mm 08/23/2023 9:06 PM [facility] LYMPHOCYTES ABSOLUTE 0.9 0.9 - 2.9 thou/cu mm 08/23/2023 9:06 PM [facility] MONOCYTES ABSOLUTE 0.6 <0.9 thou/cu mm 08/23/2023 9:06 PM [facility] EOSINOPHILS ABSOLUTE 0.0 <0.5 thou/cu mm 08/23/2023 9:06 PM [facility] BASOPHILS ABSOLUTE 0.0 <0.3 thou/cu mm 08/23/2023 9:06 PM [facility] Blood BLOOD SPECIMEN / Unknown IV Start / Unknown 08/23/2023 8:13 PM CDT 08/23/2023 8:16 PM CDT Elvira MICHELLE HEMATOLOGY Performing Organization Address City/[facility]/ZIP Co de Phone Number [facility] [address] [place] [address] * (ABNORMAL) C-REACTIVE PROTEIN (08/23/2023 8:13 PM CDT) [facility] C-REACTIVE PROTEIN 2.8(H) <0.5 mg/dL 08/23/2023 8:41 PM T [facility] Blood BLOOD SPECIMEN / Unknown IV Start / Unknown 08/23/2023 8:13 PM CDT 08/23/2023 8:16 PM CDT Elvira MICHELLE CHEMISTRY [facility] [address] [place] [address] * (ABNORMAL) BASIC METABOLIC PANEL (08/23/2023 8:13 PM CDT) Only the most recent of2 resultswithin the time period is included. [facility] SODIUM 133(L) 136 - 145 mmol/L 08/23/2023 8:41 PM [facility] POTASSIUM 4.0 3.5 - 5.1 mmol/L 08/23/2023 8:41 PM [facility] CHLORIDE 104 98 - 107 mmol/L 08/23/2023 8:41 PM [facility] CO2,TOTAL 22 22 - 29 mmol/L 08/23/2023 8:41 PM [facility] ANION GAP 7 5 - 18 08/23/2023 8:41 PM [facility] GLUCOSE 80 70 - 99 mg/dL 08/23/2023 8:41 PM [facility] CALCIUM 8.4(L) 8.8 - 10.2 mg/dL 08/23/2023 8:41 PM [facility] BUN 14 8 - 23 mg/dL 08/23/2023 8:41 PM [facility] CREATININE 1.25(H) 0.70 - 1.20 mg/dL 08/23/2023 8:41 PM [facility] BUN/CREAT RATIO 11 10 - 20 8:41 PM CDT [facility] eGFR 63(L) >90 mL/min/1.7 3m2 08/23/2023 8:41 PM CDT [facility] Comment:As of 2021, eG [...] CDT Elvira MICHELLE CHEMISTRY Performing Organization Address [facility]/ZIP Co de Phone Number [facility] [address] [place] [address] * (ABNORMAL) RETICULOCYTES (08/06/2023 9:54 AM CDT) RETIC% 5.4(H) 0.5 - 1.5 % 08/06/2023 10:16 PM CDT [facility] TRAL LABORATORY RETIC (ABSOLUTE) 0.21(H) 0.03 - 0.08 mil/cu mm 08/06/2023 10:16 PM CDT [facility]AT[facility] Blood BLOOD SPECIMEN / Unknown Venipuncture / Unknown 08/06/2023 9:54 AM CDT 08/06/2023 9:54 AM CDT Narrative [facility] - 08/06/2023 10:16 PM CDT This procedure was originally ordered at [facility]. Lizeth Alarcon NP HEMATOLOGY Performing Organization Address [facility]/ZIP Co de Phone Number [facility] [address] [place] [address], * (ABNORMAL) HEPATIC FUNCTION PANEL (08/06/2023 9:54 AM CDT) ALBUMIN 3.1(L) 4.0 - 4.9 g/dL 08/06/2023 10:19 AM T [facility] PROTEIN,TOTAL 9.5(H) 6.0 - 8.0 g/dL 08/06/2023 10:19 AM T [facility] BILIRUBIN,TOTAL 0.6 0.0 - 1.2 mg/dL 08/06/2023 10:19 AM T [facility] BILIRUBIN,DIRECT <0.2 0.0 - 0.3 mg/dL 08/06/2023 10:19 AM CDT [facility] BILIRUBIN,INDIRE CT 08/06/2023 10:19 AM T [facility] Comment:Unable to calculate, Direct Bili <0.2 ALK PHOSPHATASE 87 40 - 129 IU/L 08/06/2023 10:19 AM T [facility] ALT (SGPT) 9(L) 10 - 50 IU/L 08/06/2023 10:19 AM T [facility] AST (SGOT) 39 10 - 50 IU/L 08/06/2023 10:19 AM T [facility] Blood BLOOD SPECIMEN / Unknown Venipuncture / Unknown 08/06/2023 9:54 AM CDT 08/06/2023 9:54 AM CDT Lizeth Alarcon WHIP OPERATOR CHEMISTRY [facility] [address] [place] [address] * CT CHEST ABDOMEN PELVIS WO (01/03/2023 [...] Reactive Non Reactive 10/11/2022 12:08 PM CDT [facility] Blood BLOOD SPECIMEN / Unknown Venipuncture / Unknown 10/09/2022 9:06 AM CDT 10/09/2022 9:06 AM CDT Narrative [facility] ([facility]) - 10/11/2022 12:08 PM CDT Performed at: ??01 - [facility] [address] [place], [place] ??[id number] [employer] Attendant: Zane Rebolledo MD, Phone: ??[phone] Radha Edouard MD LABORATORY [facility] ([facility]) [facility] [place] [id number], * CT CHEST ABDOMEN PELVIS W (09/19/2022 [...] low as reasonably achievable. Dictated by Manny Sewnson MD @ 09/19/2022 5:21:19 PM (Electronically Signed) [...] 100 - 199 mg/dL 09/09/2022 12:53 PM CDT [facility] TRIGLYCERIDES 77 <150 mg/dL 09/09/2022 12:53 PM CDT [facility] HDL CHOLESTEROL 34(L) >40 mg/dL 12:53 PM CDT [facility] NON-HDL CHOLESTEROL 115 <145 mg/dl 09/09/2022 12:53 PM CDT [facility] CHOL/HDL RATIO 4.38 <4.50 09/09/2022 12:53 PM CDT [facility] LDL CHOLESTEROL 100 <=130 mg/dL 09/09/2022 12:53 PM T [facility] VLDL CHOLESTEROL 15 <=30 mg/dL 09/09/2022 12:53 PM T [facility] PROVIDER ORDERED STATUS RANDOM 09/09/2022 12:53 PM T [facility] Blood BLOOD SPECIMEN / Unknown Butterfly / Unknown 09/09/2022 12:06 PM CDT 09/09/2022 12:07 PM CDT David Ambrocio MD CHEMISTRY [facility] [address] [place] [address] from Last 3 Months or Most Recently [...] Comments Code Status Discussion: Reviewed Preferences wit Care Teams Ice Skating Teacher Relationship Specialty Start Date End Date David Ambrocio MD [address] [place] [address] PCP - General Family Practice 11/27/22 Elvira Morin RN [address] [place] [address] Nurse Navigator - Oncology Registered Nurse 10/18/22 Radha Edouard MD [address] [place] [address] Medical Oncologist Hematology and Oncology 11/21/22 Lizeth Alarcon, SHANTEL [address] [place] [address] Nurse Practitioner Hematology and Oncology 11/21/22 Jaylon Raymond LSW [address] [place], [place] [id number] Workers' Compensation Claims Supervisor 01/06/23 [place] [id number] [address] 01/21/23
== END 2023-09-23 12:49 | disposition home or self-care (01) ==
PROVIDERS: PCP Internal Medicine; Visit Provider Nurse Practitioner Family
DX: I87.311 Chronic venous hypertension (idiopathic) with ulcer of right lower extremity (principal); L97.212 Non-pressure chronic ulcer of right calf with fat layer exposed; D64.9 Anemia, unspecified; Z71.6 Tobacco abuse counseling; F17.200 Nicotine dependence, unspecified, uncomplicated
CPT/HCPCS: 11042; 11045; G0463

== ENCOUNTER 2023-09-25 08:40 | Outpatient (CLI) | payer MEDICARE, BC, SELFPAY ==
--- OUTSIDE RECORDS SUMMARY | 2023-09-25 08:47 | XMS_ITS | Clinical Summary ---
Author Organization [employer] [facility] Address [place], [place] [address] Care Team Providers Care Statistician Applied Name Role Phone CarleneElvira james Stefano RN Unavailable Radha Edouard MD Unavailable Lizeth Alarcon EDGE BANDER OPERATOR Unavailable David Ambrocio MD Primary Care Provider Jaylon Raymond SR. MANAGER Unavailable [phone] [facility] Unavailable [phone] Allergies Active Allergy Reactions Criticality Noted Date [...] Department Care Team Description 09/10/2023 Lab Requisition [facility] [phone] David Gordon MD 08/29/2023 Lab Requisition [facility] [phone] Eloina Paniagua MD 08/27/2023 Orders Only [facility] Scanner 1 scan: (1-Ord) [place], LOWER LEG RT W/COM, 08/27/2023 08/23/2023 7:26 PM CDT - 08/23/2023 11:10 PM CDT Emergency [facility] [address] [place] [address] Elvira Thayer PA Abscess of right lower extremity (Primary Dx); Neutropenia, unspecified type (HC) Discharge Disposition: Home Self Care 08/23/2023 Travel 08/12/2023 11:00 AM CDT Office Visit [facility] [address] [place] [address] Radha Edouard MD Follow Up (Pancytopenia (HC) [D61.818]//) 08/12/2023 Travel 08/06/2023 9:47 AM CDT - 08/06/2023 11:59 PM CDT Hospital Encounter [facility] [address] [place] [address] Pancytopenia (HC) [D61.818] 08/06/2023 Travel 07/22/2023 10:15 AM CDT Office Visit [facility] [address] [facility] [address] [place] [address] Faraz Henson R, DPM Consult (Bilateral foot [...] Info) Description 11/12/2023 9:00 AM CDT Appointment [facility] [address] [place] [address] 11/19/2023 11:15 AM CDT Office Visit [facility] [address] [place] [phone] Lizeth Alarcon, SHANTEL [address] [place] [address] Health Maintenance Due Date Last Done Comments [...] CDT David Gordon MD LAB BILL ONLY [facility] [address] [place] [address], * PERIPHERAL BLD MORPHOLOGY (09/10/2023 10:34 AM CDT) Only the most recent of2 resultswithin the time period is included. Case Report Special Hematology Report ? Case: [id number] ? Authorizing Provider: ??David Gordon MD ?Collected: ? 09/10/2023 1034 ? Ordering Location: ? [facility] ?Received: ?09/10/20232124 ? Pathologist: ? Rolando Retana MD ? Specimen: ?Peripheral Blood ? 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 1-2% circulating blasts 2. Moderate microcytic hypochromic anemia with reticulocytosis (6.7%) 3. 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 Mild absolute monocytosis 5. See comment 09/12/2023 4:51 PM CDT [facility] Comment Since the last described peripheral blood morphology 08/06/2023 ([id number]), the blast count is roughly unchanged. The [...] also reviewed by Mari Armijo MT, MS ([facility]). 09/12/2023 4:51 PM CDT [facility] Clinical Information The patient is a 60-year-old male. Pertinent clinical information: Anemia. Per EPIC: She visited the ER 08/23/2023 for an abscess and neutropenia. ??Additional history includes hypertension. His most recent peripheral blood morphology 08/06/2023 ([id number]) showed changes consistent with a myeloid neoplasm with 2% circulating blasts, moderate normocytic anemia, and leukopenia with marked absolute neutropenia with dysgranulopoiesis. 08/23/23 20:13 CREATININE: 1.25 (H) eGFR: ? 63 (L) 09/12/2023 4:51 PM CDT [facility] ENTRAL LABORATORY CBC and Differential HEMATOLOGY PARAMETERS Tested at: ??[facility] ? RESULTS ??EXPECTED VALUES WBC: ? 3.3 ?4.5-74i5046/cumm ?DECREASED RBC: ? 3.65 ? 4.30-5.90 mil/cumm ??DECREASED HGB: ? 8.1 ?13.5-17.5 gm/di ? DECREASED HCT: ? 28.8 ? 37-53% ?DECREASED MCV: ? 79.0 ? 80-100 fl ? MICROCYTIC MCH: ? 22.0 ? 26-34 pg ?DECREASED MCHC: ?28.0 ? 32-36 gm/dl ? HYPOCHROMIC RDW: ? 20.3 ? 11.5-15.5% ?ELEVATED PLT: ? 310 ?140-823k2808/uL ? Retic: ?? 6.7 ?0.5-1.5% ?ELEVATED Differential ?Absolute (%) ?Expected (%) ?(x10*9/L) ? (x10*9/L) Neutrophils: ?1.4 (42.6) ?1.7-7.0 (42-72%) ??DECREASED Lymphocytes: ?0.4 (12.2) ?0.9-2.9 (20-44%) ??DECREASED Monocytes: ?1.2 (36.5) ? <0.9 (0-11%) ? ELEVATED Eosinophils: ?0.2 (6.1) ?<0.5 (0-2%) ? 09/12/2023 4:51 PM CDT [facility] Microscopic Description The final diagnosis is based on microscopic examination of an appropriately stained blood smear. 09/12/2023 4:51 PM CDT [facility] Additional Information Interpreted at [facility], Central Laboratory - [address] [place] [address] 09/12/2023 4:51 PM CDT [facility] Blood (Peripheral Blood) 09/10/2023 10:34 AM CDT 09/10/2023 9:25 PM CDT David Gordon MD HEMATOLOGY [facility] [address] [place] [address], * PATH TISSUE EXAM (08/29/2023 8:40 AM CDT) Case Report Pathology Report ?Case: [id number] ? Authorizing Provider: ??Eloina Paniagua MD ?Collected: ? 08/29/2023 0840 ? Ordering Location: ? [facility] ?Received: ?08/29/2023 1517 ? Pathologist: ? Georgie Rocha MD ? Specimen: ?Right Leg, Right leg chronic wound necrotic tissue ? 09/03/2023 3:31 PM [facility] Final Diagnosis SKIN AND SOFT TISSUE, RIGHT LEG CHRONIC WOUND, EXCISION: 1. ??Ulcer bed with reactive epithelial hyperplasia, dense dermal mixed inflammatory infiltrate and prominent fibrosis 2. ??No evidence of vasculitis or malignancy right leg 09/03/2023 3:31 PM [facility] Clinical Information Right leg chronic wound necrotic tissue. 09/03/2023 3:31 PM [facility] Gross Description A) Received in formalin, labeled with the patient's name and right leg chronic wound necrotic tissue, is a portion of skin excision measuring 11.5 x 5.5 cm, excised to 1.0 cm deep. The skin surface is entirely dark brown mummified and necrotic. The resection margin is inked blue. The cut surface shows red-brown skeletal. No solid mass is identified. Health Clinician sections are submitted in 2 cassettes. TTP 08/29/2023 09/03/2023 3:31 PM [facility] Microscopic Description The final diagnosis is based on microscopic examination of appropriate sections of all specimens. The presence of blue ink is confirmed on tissue sections. 09/03/2023 3:31 PM [facility] Additional Information Interpreted at [facility], Central Laboratory - [address], [place] [address] 09/03/2023 3:31 PM CDT [facility]-C ENTRAL LABORATORY Other (Right Leg) 08/29/2023 8:40 AM CDT 08/29/2023 3:17 PM CDT Eloina Paniagua MD PATHOLOGY/CYTOLOGY [facility]ORY [address] [place] [address], * SCAN-CT INTERPRETATION (08/27/2023 12:00 AM CDT) [...] 51(H) <20 mm/hr 2023 8:38 PM CDT [facility] Blood BLOOD SPECIMEN / Unknown IV Start / Unknown 08/23/2023 8:13 PM CDT 08/23/2023 8:16 PM CDT Elvira MICHELLE HEMATOLOGY [facility] [address] [place] [address] * (ABNORMAL) CBC WITH AUTO DIFFERENTIAL (08/23/2023 8:13 PM CDT) Only the most recent of2 resultswithin the time period is included. WHITE BLOOD COUNT 1.9(L) 4.5 - 11.0 thou/cu mm 08/23/2023 9:06 PM [facility] RED BLOOD COUNT 3.30(L) 4.30 - 5.90 mil/cu mm 08/23/2023 9:06 PM [facility] HEMOGLOBIN 7.4(L) 13.5 - 17.5 g/dL 08/23/2023 9:06 PM [facility] HEMATOCRIT 26.5(L) 37.0 - 53.0 % 08/23/2023 9:06 PM [facility] MCV 80 80 - 100 fL 08/23/2023 9:06 PM [facility] MCH 22.4(L) 26.0 - 34.0 pg 08/23/2023 9:06 PM [facility] MCHC 27.9(L) 32.0 - 36.0 g/dL 08/23/2023 9:06 PM [facility] RDW 19.3(H) 11.5 - 15.5 % 08/23/2023 9:06 PM [facility] PLATELET COUNT 272 140 - 440 thou/cu mm 08/23/2023 9:06 PM T [facility] MPV 10.0 6.5 - 11.0 fL 08/23/2023 9:06 PM [facility] Blood BLOOD SPECIMEN / Unknown IV Start / Unknown 08/23/2023 8:13 PM CDT 08/23/2023 8:16 PM CDT Elvira MICHELLE HEMATOLOGY [facility] [address] [place] [address] * (ABNORMAL) RED CELL MORPHOLOGY (08/23/2023 8:13 PM CDT) Only the most recent of2 resultswithin the time period is included. [facility] ELLIPTOCYTES Moderate 08/23/2023 9:06 PM CDT [facility] POLYCHROMASIA Moderate 08/23/2023 9:06 PM CDT [facility] RBC COMMENT Present(A) RBC morphology appears normal, RBC morphology within normal limits for newborns. 08/23/2023 9:06 PM CDT [facility] LARGE PLATELETS Present 9:06 PM CDT [facility] Blood BLOOD SPECIMEN / Unknown IV Start / Unknown 08/23/2023 8:13 PM CDT 08/23/2023 8:16 PM CDT Elvira MICHELLE HEMATOLOGY [facility] [address] [place] [address] * PLATELET ESTIMATE (08/23/2023 8:13 PM CDT) Only the most recent of2 resultswithin the time period is included. [facility] PLATELET ESTIMATE Adequate Adequate, No estimate 08/23/2023 9:06 PM CDT [facility] Blood BLOOD SPECIMEN / Unknown IV Start / Unknown 08/23/2023 8:13 PM CDT 08/23/2023 8:16 PM CDT Elvira MICHELLE HEMATOLOGY [facility] [address] [place] [address] * LACTATE VENOUS (08/23/2023 8:13 PM CDT) [facility] LACTATE,VENOUS 0.5 0.5 - 2.0 mmol/L 08/23/2023 8:40 PM CDT [facility] Blood BLOOD SPECIMEN / Unknown IV Start / Unknown 08/23/2023 8:13 PM CDT 08/23/2023 8:16 PM CDT Elvira MICHELLE CHEMISTRY Performing Organization Address City/[facility] [address]/ZIP Co de Phone Number [facility] [address] [place] [address] * (ABNORMAL) MANUAL DIFFERENTIAL (08/23/2023 8:13 PM CDT) Only the most recent of2 resultswithin the time period is included. % NEUTROPHILS 20.0 % 08/23/2023 9:06 PM [facility] % LYMPHOCYTES 48.0 % 08/23/2023 9:06 PM [facility] % MONOCYTES 31.0 % 08/23/2023 9:06 PM [facility] % EOSINOPHILS 1.0 % 08/23/2023 9:06 PM [facility] % BASOPHILS 0.0 % 08/23/2023 9:06 PM [facility] NEUTROPHILS ABSOLUTE 0.4(L) 1.7 - 7.0 thou/cu mm 08/23/2023 9:06 PM [facility] LYMPHOCYTES ABSOLUTE 0.9 0.9 - 2.9 thou/cu mm 08/23/2023 9:06 PM [facility] MONOCYTES ABSOLUTE 0.6 <0.9 thou/cu mm 08/23/2023 9:06 PM [facility] EOSINOPHILS ABSOLUTE 0.0 <0.5 thou/cu mm 08/23/2023 9:06 PM [facility] BASOPHILS ABSOLUTE 0.0 <0.3 thou/cu mm 08/23/2023 9:06 PM [facility] Blood BLOOD SPECIMEN / Unknown IV Start / Unknown 08/23/2023 8:13 PM CDT 08/23/2023 8:16 PM CDT Elvira MICHELLE HEMATOLOGY Performing Organization Address City/[facility] [address]/ZIP Co de Phone Number [facility] [address] [place] [address] * (ABNORMAL) C-REACTIVE PROTEIN (08/23/2023 8:13 PM CDT) [facility] C-REACTIVE PROTEIN 2.8(H) <0.5 mg/dL 08/23/2023 8:41 PM T [facility] Blood BLOOD SPECIMEN / Unknown IV Start / Unknown 08/23/2023 8:13 PM CDT 08/23/2023 8:16 PM CDT Elvira MICHELLE CHEMISTRY [facility] [address] [place] [address] * (ABNORMAL) BASIC METABOLIC PANEL (08/23/2023 8:13 PM CDT) Only the most recent of2 resultswithin the time period is included. [facility] SODIUM 133(L) 136 - 145 mmol/L 08/23/2023 8:41 PM [facility] POTASSIUM 4.0 3.5 - 5.1 mmol/L 08/23/2023 8:41 PM [facility] CHLORIDE 104 98 - 107 mmol/L 08/23/2023 8:41 PM [facility] CO2,TOTAL 22 22 - 29 mmol/L 08/23/2023 8:41 PM [facility] ANION GAP 7 5 - 18 08/23/2023 8:41 PM [facility] GLUCOSE 80 70 - 99 mg/dL 08/23/2023 8:41 PM [facility] CALCIUM 8.4(L) 8.8 - 10.2 mg/dL 08/23/2023 8:41 PM [facility] BUN 14 8 - 23 mg/dL 08/23/2023 8:41 PM [facility] CREATININE 1.25(H) 0.70 - 1.20 mg/dL 08/23/2023 8:41 PM [facility] BUN/CREAT RATIO 11 10 - 20 8:41 PM CDT [facility] eGFR 63(L) >90 mL/min/1.7 3m2 08/23/2023 8:41 PM CDT [facility] Comment:As of 2021, eG [...] CDT Elvira MICHELLE CHEMISTRY Performing Organization Address [facility] [address]/ZIP Co de Phone Number [facility] [address] [place] [address] * (ABNORMAL) RETICULOCYTES (08/06/2023 9:54 AM CDT) RETIC% 5.4(H) 0.5 - 1.5 % 08/06/2023 10:16 PM CDT [facility] RETIC (ABSOLUTE) 0.21(H) 0.03 - 0.08 mil/cu mm 08/06/2023 10:16 PM CDT [facility] Blood BLOOD SPECIMEN / Unknown Venipuncture / Unknown 08/06/2023 9:54 AM CDT 08/06/2023 9:54 AM CDT Narrative [facility] 08/06/2023 10:16 PM CDT This procedure was originally ordered at [facility]. Lizeth Alarcon NP HEMATOLOGY Performing Organization Address [facility] [address]/ZIP Co de Phone Number [facility] [address] [place] [address], * (ABNORMAL) HEPATIC FUNCTION PANEL (08/06/2023 9:54 AM CDT) ALBUMIN 3.1(L) 4.0 - 4.9 g/dL 08/06/2023 10:19 AM T [facility] PROTEIN,TOTAL 9.5(H) 6.0 - 8.0 g/dL 08/06/2023 10:19 AM T [facility] BILIRUBIN,TOTAL 0.6 0.0 - 1.2 mg/dL 08/06/2023 10:19 AM T [facility] BILIRUBIN,DIRECT <0.2 0.0 - 0.3 mg/dL 08/06/2023 10:19 AM CDT [facility] BILIRUBIN,INDIRE CT 08/06/2023 10:19 AM T [facility] Comment:Unable to calculate, Direct Bili <0.2 ALK PHOSPHATASE 87 40 - 129 IU/L 08/06/2023 10:19 AM T [facility] ALT (SGPT) 9(L) 10 - 50 IU/L 08/06/2023 10:19 AM T [facility] AST (SGOT) 39 10 - 50 IU/L 08/06/2023 10:19 AM T [facility] Blood BLOOD SPECIMEN / Unknown Venipuncture / Unknown 08/06/2023 9:54 AM CDT 08/06/2023 9:54 AM CDT Lizeth Alarcon EDGE BANDER OPERATOR CHEMISTRY [facility] [address] [place] [address] * CT CHEST ABDOMEN PELVIS WO (01/03/2023 [...] Reactive Non Reactive 10/11/2022 12:08 PM CDT [facility] Blood BLOOD SPECIMEN / Unknown Venipuncture / Unknown 10/09/2022 9:06 AM CDT 10/09/2022 9:06 AM CDT Narrative [facility] - 10/11/2022 12:08 PM CDT Performed at: ??01 - [facility] [address] [place], [place] ??[id number] Licensed Embalmer: Zane Rebolledo MD, Phone: ??[phone] Radha Edouard MD LABORATORY [facility] ([facility]) [facility] [place] [id number], * CT CHEST ABDOMEN PELVIS W (09/19/2022 [...] - 199 mg/dL 09/09/2022 12:53 PM CDT [facility] TRIGLYCERIDES 77 <150 mg/dL 09/09/2022 12:53 PM CDT [facility] HDL CHOLESTEROL 34(L) >40 mg/dL 12:53 PM CDT [facility] NON-HDL CHOLESTEROL 115 <145 mg/dl 09/09/2022 12:53 PM CDT [facility] CHOL/HDL RATIO 4.38 <4.50 09/09/2022 12:53 PM CDT [facility] LDL CHOLESTEROL 100 <=130 mg/dL 09/09/2022 12:53 PM T [facility] VLDL CHOLESTEROL 15 <=30 mg/dL 09/09/2022 12:53 PM T [facility] PROVIDER ORDERED STATUS RANDOM 09/09/2022 12:53 PM T [facility] Blood BLOOD SPECIMEN / Unknown Butterfly / Unknown 09/09/2022 12:06 PM CDT 09/09/2022 12:07 PM CDT David Ambrocio MD CHEMISTRY [facility] [address] [place] [address] from Last 3 Months or Most Recently [...] Status Discussion: Reviewed Preferences wit Care Teams Statistician Applied Relationship Specialty Start Date End Date David Ambrocio MD [address] [place] [address] PCP - General Family Practice 11/27/22 Elvira Morin RN [address] [place] [address] Nurse Navigator - Oncology Registered Nurse 10/18/22 Radha Edouard MD [address] [place] [address] Medical Oncologist Hematology and Oncology 11/21/22 Lizeth Alarcon, SHANTEL [address] [place] [address] Nurse Practitioner Hematology and Oncology 11/21/22 Jaylon Raymond LSW [address] [place], [place] [id number] [employer] 01/06/23 [place] [id number] [address] [address] 01/21/23
[2023-09-25 08:51] VITALS: BP 160/77; PULSE 83; RESP 16; O2SAT 100
[2023-09-25 09:30] LABS: Basophils Percent Auto 3.2 % (0.0-3.0); Eosinophils Percent Auto 0.6 % (0.0-7.0); Hematocrit 30.7 % (37.0-53.0); Hemoglobin* 8.5 gm/dL (13.5-17.5); Immature Granulocytes Pct Auto 1.9 %; Immature Reticulocyte Fraction 22.3 % (2.3-13.4); Lymphocytes Percent Auto 38.6 % (20-44); Mean Corpuscular HGB Conc 28 gm/dL (32-36); Mean Corpuscular Hemoglobin 23 pg (26-34); Mean Corpuscular Volume 81 fL (80-100); Monocytes Percent Auto 34.8 % (0.0-11.0); Neutrophils Percent Auto 20.9 % (42.0-72.0); Platelet Count* 253 K/uL (140-440); RDW Coefficient of Variation % 22.5 % (11.5-15.5); Red Blood Count 3.77 m/uL (4.30-5.90); Reticulocyte Hemoglobin Equivi 18.9 pg (29.0-35.0); Reticulocyte Percent 7.3 % (0.5-2.0); Reticulocytes Absolute 0.27 # (0.03-0.08)
[2023-09-25 09:53] VITALS: BP 158/79; PULSE 71; RESP 16; O2SAT 99
[2023-09-25 10:49] LABS: White Blood Count* 1.58 K/uL (4.50-11.00)
[2023-09-25 10:50] LABS: Slide Review Reflex Yes
[2023-09-25 13:44] LABS: Slide Review Acceptable Review (Acceptable)
== END 2023-09-25 09:54 | disposition home or self-care (01) ==
LOC: OP CLINIC 08:42
PROVIDERS: PCP Internal Medicine; Visit Provider Internal Medicine
DX: D64.9 Anemia, unspecified (principal); C92.00 Acute myeloblastic leukemia, not having achieved remission
CPT/HCPCS: 36415; 38222; 85025; 85045; 88184; 88185; 88237; 88264; 88305; 88311; 88313; 88360

== ENCOUNTER 2023-09-30 10:25 | Outpatient (CLI) | payer MEDICARE, BC, SELFPAY ==
--- OUTSIDE RECORDS SUMMARY | 2023-09-30 10:27 | XMS_ITS | Clinical Summary ---
Author Organization [facility] Address [place], [place] [address] Care Team Providers Care Tool Lapper Hand Name Role Phone Elvira Morin Stefano RN Unavailable Radha Edouard MD Unavailable [phone] Lizeth Alarcon AQUEDUCT AND RESERVOIR KEEPER Unavailable David Ambrocio MD Primary Care Provider Jaylon RaymondW Unavailable [phone] [facility] Allergies Active Allergy Reactions Criticality Noted Date Comments Venom-Yellow Jacket Edema Unknown 01/22/2023 Medications Medication Sig Dispensed Refills Start Date End Date Status multivitamin (MVI) tablet Take 1 tablet by mouth once daily. 0 08/24/2011 Active fluticasone (50 mcg per actuation) nasal solution (FLONASE)Indication s:Seasonal allergic rhinitis, unspecified trigger 1 SPRAY IN EACH NOSTRIL 2 TIMES DAILY. 16 g 12 04/03/2020 Active cholecalciferol, Vitamin D3, (Vitamin D-3) 5,000 unit tab tablet Take 5,000 units by mouth once daily. Active vitamin B complex (B COMPLETE ORAL) Take 1 Tablet by mouth once daily. Active Bismuth Tribrom-Petrolatum, Wh (Xeroform) 5 X 9 bndgIndications:Wou nd of right lower extremity, subsequent encounter Apply topically to affected area(s). 50 Each 2 02/11/2023 Active ferrous sulfate (IRON ORAL) Take by mouth. Active medication order composerIndications :Wound of right lower extremity, subsequent encounter Apply 1 unit topically to affected area(s) once daily. Hydrofera Blue Ready antibacterial foam dressing 8x8. Use one per day. 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/16/2006 MEMORY LOSS, INTERMITTANT 05/16/2006 Encounters Date Type Department Care Team Description 09/25/2023 Lab Requisition [facility] [phone] David Gordon MD 09/10/2023 Lab Requisition [facility] [phone] David Gordon MD 08/29/2023 Lab Requisition [facility] [phone] Eloina Paniagua MD 08/27/2023 Orders Only [facility] Scanner 1 scan: (1-Ord) [place], LOWER LEG RT W/COM, 08/27/2023 08/23/2023 7:26 PM CDT - 08/23/2023 11:10 PM CDT Emergency [facility] [address] [place] [address] Elvira Thayer PA Abscess of right lower extremity (Primary Dx); Neutropenia, unspecified type (HC) Discharge Disposition: Home Self Care 08/23/2023 Travel 08/12/2023 11:00 AM CDT Office Visit [facility] [address] [place] [address] Radha Edouard MD Follow Up (Pancytopenia (HC) [D61.818]//) 08/12/2023 Travel 08/06/2023 9:47 AM CDT - 08/06/2023 11:59 PM CDT Hospital Encounter [facility] [address] [place] [address] Pancytopenia (HC) [D61.818] 08/06/2023 Travel 07/22/2023 10:15 AM CDT Office Visit [facility] [place] [address] [facility] [address] [place] [phone] Faraz Henson R, DPM Consult (Bilateral foot [...] Info) Description 11/12/2023 9:00 AM CDT Appointment [facility] [address] [place] [address] 11/19/2023 11:15 AM CDT Office Visit [facility] [address] [place] [phone] Lizeth Alarcon, AQUEDUCT AND RESERVOIR KEEPER [address] [place] [address] Health Maintenance Due Date Last Done Comments Pneumococcal series for age 65+ (1 of 2 - PCV) 1961 Colonoscopy through age 75 2000 Zoster (shingles) series for age 50+ (1 of 2) 2005 Medicare Wellness for age 65+ 2020 COVID-19 vaccine series (1 - 2022- season) 2022 Depression screening for age 12+ 09/10/2023 09/10/19 23, 04/03/2020 Influenza for age 65+ 12/07/2023 Low [...] Associated Diagnosis Comments LAB TRACKING EVENT Routine 09/25/2023 12 :00 PM CDT BONE MARROW STUDY Routine 09/25/2023 9:1 0 AM CDT CHROM TECH 2 Routine 09/25/2023 9:10 AM CDT BONE MARROW DIFFERENTIAL Routine 09/25/2023 9:10 AM CDT CHROM TECH 1 Routine 09/25/2023 9:10 AM CDT BM/LB CHROM Routine 09/25/2023 9:10 AM CDT LAB TRACKING EVENT Routine 09/10/2023 10 :34 [...] Health Maintenance Results * LAB TRACKING EVENT (09/25/2023 12:00 PM CDT) Only the most recent of3 resultswithin the time period is included. Other (Other) Client Collect / Unknown 09/25/2023 12:00 PM CDT 09/25/2023 9:59 PM CDT David Gordon MD LAB BILL ONLY [facility] [address] [place] [address], [place] * CHROM TECH 2 (09/25/2023 9:10 AM CDT) Bone Marrow (Bone Marrow Aspirate) 09/25/2023 9:10 AM CDT 09/26/2023 2:58 PM CDT David Gordon MD LABORATORY [facility] [address] [place] [address], * CHROM TECH 1 (09/25/2023 9:10 AM CDT) Bone Marrow (Bone Marrow Aspirate) 09/25/2023 9:10 AM CDT 09/26/2023 2:58 PM CDT David Gordon MD LABORATORY Performing Organization Address [facility] de Phone Number [facility] [address] [place] [address], * BONE MARROW DIFFERENTIAL (09/25/2023 9:10 AM CDT) Bone Marrow (Bone Marrow Aspirate) 09/25/2023 9:10 AM CDT 09/29/2023 7:59 AM CDT David Gordon MD LABORATORY Performing Organization Address [facility] de Phone Number [facility] [address] [place] [address], * BONE MARROW STUDY (09/25/2023 9:10 AM CDT) Case Report Bone Marrow Pathology Report ?Case: [id number] ? Authorizing Provider: ??David Gordon MD ?Collected: ? 09/25/2023 0910 ? Ordering Location: ? [facility] ?Received: ?09/26/2023 0625 ? Pathologist: ? Manny Alfredo MD ? Specimens: ?? A) - Bone Marrow Aspirate ? B) - Bone Marrow Aspirate (Heparinized) ? C) - Bone Marrow Core Biopsy ? D) - Peripheral Blood ? 09/29/2023 10:51 AM [facility] Final Diagnosis BONE MARROW AND PERIPHERAL BLOOD: 1. 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 ??Bone marrow blasts: ? 25% ?b. ??Bone marrow cellularity: ??85% ?c. ??Peripheral blood: ?- Blasts: ??6.3% ?- Moderate hypochromic, normocytic anemia ?- Moderate absolute neutropenia 2. ??Ancillary studies: ?a. ??Cytogenetics: ?- Provisional results reveal +8 ?- Final results will be appended to this report ?b. ??Molecular: ?- [facility] NGS myeloid DNA only comprehensive panel pending; amended results to follow 09/29/2023 10:51 AM [facility] Comment Results are electronically communicated via Secure Chat to Dr. Edouard and Lizeth Alarcon on 09/29/[address] Alfredo. In the new 2021 classifications, this leukemia would be classified as follows: Acute myeloid leukemia-myelodyspl tariq related (AML-MR) (WHO 2021); ?? 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 (The +8 in this case is recognized by the International Consensus Classification (ICC) of Acute Leukemias as a defining cytogenetic abnormality; however, +8 is not recognized by WHO 2022 as a defining cytogenetic abnormality.) 09/29/2023 10:51 AM [facility] Clinical Information Mr. Alba is a 68 y.o. With a peripheral blood morphology consistent with a myeloid neoplasm with 1-2% circulating blasts, moderate microcytic hypochromic anemia with reticulocytosis (6.7%), leukopenia reflecting mild absolute neutropenia with dysgranulopoiesis and lymphocytopenia, and mild absolute monocytosis ([id number], 09/10/23). A bone marrow biopsy is performed for further characterization. 09/29/2023 10:51 AM [facility] PROCEDURE A RIGHT lateral bone marrow biopsy and unilateral aspiration procedure is performed at [facility] on 09/25/23. VIVIANA Monterroso performed the procedure using an 8 gauge manual needle. The ordering physicians are Drs. Gordon and Silke. The specimen is inked orange. EVM 09/26/2023 09/29/2023 10:51 AM [facility] CBC and Differential HEMATOLOGY PARAMETERS Tested at: ??[facility] ? RESULTS ??EXPECTED VALUES WBC: ? 1.6 ?4.5-12n9767/cumm ?DECREASED RBC: ? 3.8 ?4.30-5.90 mil/cumm ??DECREASED HGB: ? 8.5 ?13.5-17.5 gm/di ? DECREASED HCT: ? 30.7 ? 37-53% ?DECREASED MCV: ? 81.0 ? 80-100 fl ? NORMOCYTIC MCH: ? 23.0 ? 26-34 pg ?DECREASED MCHC: ?28.0 ? 32-36 gm/dl ? HYPOCHROMIC RDW: ? 22.5 ? 11.5-15.5% ?ELEVATED PLT: ? 253 ?140-050g0003/uL ? Retic: ?? 7.91 ?0.5-1.5% ? ELEVATED Differential ?Tested at: ??[facility] ?Absolute (%) ?Expected (%) ?(x10*9/L) ? (x10*9/L) Neutrophils: ?0.5 (31.3) ?1.7-7.0 (42-72%) ??DECREASED Lymphocytes: ?0.6 (37.5) ?0.9-2.9 (20-44%) ??DECREASED Monocytes: ?0.4 (25) ? <0.9 (0-11%) ? Blasts: ? 0.1 (6.3) ? 0 ??(0%) ? BLASTS 09/29/2023 10:51 AM CDT [facility] Reticulocytes Retic: 7.91 0.5-1.5% ELEVATED 09/29/2023 10:51 AM CDT [facility] Bone Marrow Differential Blasts: ?23.6 ?0.2-1.5% ?ELEVATED Neutrophils & precursors: ??14.4 ?58.0-65.0% ?DECREASED Erythroid precursors: ?38 ?18.0-24.0% ?ELEVATED Lymphocytes: ? 21 ? 3.0-24.0% ? Monocytes: ? 2.2 ? 0.7-2.8% ? Plasma cells: ?0.8 ? 0.1-1.5% ? M:E Ratio: ? 14 : 38 09/29/2023 10:51 AM [facility]- C[facility]TRAL LABORATORY Microscopic Description The final diagnosis is based on microscopic examination of an appropriately stained blood smear. SPECIMENS EXAMINED: Peripheral blood Aspirate direct and concentrate smears: ??Adequate Particle crush smears Touch imprints Clot section Bone core trephine sample (decalcified): ??Adequate, 1.6 cm Bone core and clot section color: ??[place] PERIPHERAL BLOOD: The peripheral smear features support the diagnosis. Mature neutrophils appear dysplastic with hypogranular cytoplasm. There are circulating blasts (~6%). BONE MARROW ASPIRATE: Hematopoiesis: Mature neutrophils appear dysplastic with hypogranular cytoplasm. Infrequent erythroid precursors appear dysplastic with irregular nuclear contours. Blasts: Blasts are small in size and most have a prominent nucleolus. Some have cytoplasmic granules. No Lemuel rods are detected. Lymphocytes: ?? Unremarkable Plasma cells: ??Unremarkable BONE MARROW CORE AND CLOT SECTION: Hematopoiesis: The marrow is hypercellular for age. There is a left shift in hematopoiesis. Blasts are scattered throughout the interstitium. Lymphocytes: ?? Unremarkable Plasma cells: ??Unremarkable IRON STAINS (performed on clot sections, particle crush smears, concentrate smears, and F-PV slides): Storage iron: Adequate Sideroblastic iron: Decreased Ringed sideroblasts: Absent 09/29/2023 10:51 AM T [facility] Flow Cytometry Summary Diagnostic Acute Myeloid Leukemia panel: Interpretation: Bright CD34/CD33/CD13 myeloblast population detected at 24%. Clinical indication for flow cytometry: To evaluate for abnormal immunophenotype among blasts. A precursor/blast population is detected that comprises approximately 24.3% of total viable nucleated events as defined by light scatter criteria. Summary of precursor/blast population Brightly positive markers: CD34 Moderately positive markers: CD117/HLA-DR/CD13/C D33/CD45RA Dimly positive markers: CD45/CD38/CD71/CD37 1/CD123/MPO(CYTO) Trace positive markers: CD7/CD36 Negative markers: CD65/CD15/CD10/CD64 /VJ186q/CD14/CD56/C D11b/CD16/CD2/CD5/C D235a/CD19/CD22(CYT O)/CD79a(CYTO)/TdT( n)/CD3(CYTO) Quality Assessment Viability (7-AAD): 62% Nucleated cells analyzed: 30225 Limit of detection (LOD): 0.1% These results and cytograms have been verified by Dr. Alfredo. This test was developed and its performance characteristics verified by [facility]. It has not been cleared or approved by the US Food and Drug Administration. This test is used for clinical purposes and should not be regarded as investigational or for research. Immunostains may have been used on this case in conjunction with flow cytometry in order to address ambiguous or inconclusive findings and/or to provide prognostic information. In the event immunostains were performed, results of both modalities were coordinated with H&E findings during diagnostic evaluation. Analytic Flow Tech: Tina Wilkerson, 09/26/2023 3:04 PM Verifying Flow Tech: Flor Alvarez, 09/26/2023 3:50 PM 09/29/2023 10:51 AM T [facility] Cytogenetics Summary Cytogenetic testing has been ordered and will be reported separately. 09/29/2023 10:51 AM T [facility] Other Testing Immunostains were performed on the bone core biopsy. CD34 (blast marker) (manual morphometry: ??25% 09/29/2023 10:51 AM CDT [facility] Additional Information Interpreted at [facility] - [address] [place], [place] [id number] Immunohistochemistr y controls were reviewed and approved by the pathologist during this examination. 09/29/2023 10:51 AM CDT [facility] Bone Marrow (Bone Marrow Aspirate) 09/25/2023 9:10 AM CDT 09/26/2023 6:25 AM CDT Bone marrow specimen (specimen) (Bone Marrow Aspirate (Heparinized)) 09/25/2023 9:10 AM CDT 09/26/2023 6:25 AM CDT Bone marrow specimen (specimen) (Bone Marrow Core Biopsy) 09/25/2023 9:10 AM CDT 09/26/2023 6:25 AM CDT Bone marrow specimen (specimen) (Peripheral Blood) 09/25/2023 9:10 AM CDT 09/26/2023 6:25 AM CDT David Gordon MD LABORATORY Performing Organization Address City/State/[facility] Co de Phone Number [facility] [address] [place] [address], * PERIPHERAL BLD MORPHOLOGY (09/10/2023 10:34 AM CDT) Only the most recent of2 resultswithin the time period is included. Case Report Special Hematology Report ? Case: [id number] ? Authorizing Provider: ??David Gordon MD ?Collected: ? 09/10/2023 1034 ? Ordering Location: ? [facility] ?Received: ?09/10/20232124 ? Pathologist: ? Rolando Retana MD ? Specimen: ?Peripheral Blood ? 09/12/2023 4:51 PM CDT [facility]C ENTRAL LABORAT[facility] Final Diagnosis PERIPHERAL BLOOD: Continued changes consistent with a myeloid neoplasm 1. 1-2% circulating blasts 2. Moderate microcytic hypochromic anemia with reticulocytosis (6.7%) 3. 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 Mild absolute monocytosis 5. See comment 09/12/2023 4:51 PM CDT [facility] ENTRAL [facility]AT[facility] Comment Since the last described peripheral blood morphology 08/06/2023 ([id number]), the blast count is roughly unchanged. The [...] also reviewed by Mari Armijo MT, MS ([facility]). 09/12/2023 4:51 PM CDT [facility] Clinical Information The patient is a 60-year-old male. Pertinent clinical information: Anemia. Per EPIC: She visited the ER 08/23/2023 for an abscess and neutropenia. ??Additional history includes hypertension. His most recent peripheral blood morphology 08/06/2023 ([id number]) showed changes consistent with a myeloid neoplasm with 2% circulating blasts, moderate normocytic anemia, and leukopenia with marked absolute neutropenia with dysgranulopoiesis. 08/23/23 20:13 CREATININE: 1.25 (H) eGFR: ? 63 (L) 09/12/2023 4:51 PM CDT [facility]C ENTRAL LABORATORY CBC and Differential HEMATOLOGY PARAMETERS Tested at: ??[facility] Laboratory ? RESULTS ??EXPECTED VALUES WBC: ? 3.3 ?4.5-91l2033/cumm ?DECREASED RBC: ? 3.65 ? 4.30-5.90 mil/cumm ??DECREASED HGB: ? 8.1 ?13.5-17.5 gm/di ? DECREASED HCT: ? 28.8 ? 37-53% ?DECREASED MCV: ? 79.0 ? 80-100 fl ? MICROCYTIC MCH: ? 22.0 ? 26-34 pg ?DECREASED MCHC: ?28.0 ? 32-36 gm/dl ? HYPOCHROMIC RDW: ? 20.3 ? 11.5-15.5% ?ELEVATED PLT: ? 310 ?140-783t8090/uL ? Retic: ?? 6.7 ?0.5-1.5% ?ELEVATED Differential ?Absolute (%) ?Expected (%) ?(x10*9/L) ? (x10*9/L) Neutrophils: ?1.4 (42.6) ?1.7-7.0 (42-72%) ??DECREASED Lymphocytes: ?0.4 (12.2) ?0.9-2.9 (20-44%) ??DECREASED Monocytes: ?1.2 (36.5) ? <0.9 (0-11%) ? ELEVATED Eosinophils: ?0.2 (6.1) ?<0.5 (0-2%) ? 09/12/2023 4:51 PM CDT [facility] Microscopic Description The final diagnosis is based on microscopic examination of an appropriately stained blood smear. 09/12/2023 4:51 PM CDT [facility] Additional Information Interpreted at [facility], Central Laboratory - [address] [facility] [address], [place] [address] 09/12/2023 4:51 PM CDT [facility] Blood (Peripheral Blood) 09/10/2023 10:34 AM CDT 09/10/2023 9:25 PM CDT David Gordon MD HEMATOLOGY Performing Organization Address City/State/[facility] Co de Phone Number [facility] [address] [place] [address], * PATH TISSUE EXAM (08/29/2023 8:40 AM CDT) Case Report Pathology Report ?Case: [id number] ? Authorizing Provider: ??Eloina Paniagua MD ?Collected: ? 08/29/2023 0840 ? Ordering Location: ? [facility] ?Received: ?08/29/2023 1517 ? Pathologist: ? Georgie Rocha MD ? Specimen: ?Right Leg, Right leg chronic wound necrotic tissue ? 09/03/2023 3:31 PM T [facility] ENTRAL LABORATORY Final Diagnosis SKIN AND SOFT TISSUE, RIGHT LEG CHRONIC WOUND, EXCISION: 1. ??Ulcer bed with reactive epithelial hyperplasia, dense dermal mixed inflammatory infiltrate and prominent fibrosis 2. ??No evidence of vasculitis or malignancy right leg 09/03/2023 3:31 PM T [facility] Clinical Information Right leg chronic wound necrotic tissue. 09/03/2023 3:31 PM T [facility] LAB[facility] Gross Description A) Received in formalin, labeled with the patient's name and right leg chronic wound necrotic tissue, is a portion of skin excision measuring 11.5 x 5.5 cm, excised to 1.0 cm deep. The skin surface is entirely dark brown mummified and necrotic. The resection margin is inked blue. The cut surface shows red-brown skeletal. No solid mass is identified. Facilities Coordinator sections are submitted in 2 cassettes. TTP 08/29/2023 09/03/2023 3:31 PM T [facility] ENTRAL LABORATORY Microscopic Description The final diagnosis is based on microscopic examination of appropriate sections of all specimens. The presence of blue ink is confirmed on tissue sections. 09/03/2023 3:31 PM CDT [facility] LABORATORY-C ENTRAL LABORATORY Additional Information Interpreted at [facility], Central Laboratory - [address] [place], [place] [address] . [facility] [address], [place] [address] 09/03/2023 3:31 PM CDT [facility]-C ENTRAL LABORATORY Other (Right Leg) 08/29/2023 8:40 AM CDT 08/29/2023 3:17 PM CDT Eloina Paniagua MD PATHOLOGY/CYTOLOGY [facility] LAB[facility]ATORY [address] [place] [address], * SCAN-CT INTERPRETATION (08/27/2023 12:00 AM CDT) [...] 51(H) <20 mm/hr 2023 8:38 PM CDT [facility] Blood BLOOD SPECIMEN / Unknown IV Start / Unknown 08/23/2023 8:13 PM CDT 08/23/2023 8:16 PM CDT Elvira MICHELLE HEMATOLOGY [facility] [address] [place] [address] * (ABNORMAL) CBC WITH AUTO DIFFERENTIAL (08/23/2023 8:13 PM CDT) Only the most recent of2 resultswithin the time period is included. WHITE BLOOD COUNT 1.9(L) 4.5 - 11.0 thou/cu mm 08/23/2023 9:06 PM [facility] RED BLOOD COUNT 3.30(L) 4.30 - 5.90 mil/cu mm 08/23/2023 9:06 PM [facility] HEMOGLOBIN 7.4(L) 13.5 - 17.5 g/dL 08/23/2023 9:06 PM [facility] HEMATOCRIT 26.5(L) 37.0 - 53.0 % 08/23/2023 9:06 PM [facility] MCV 80 80 - 100 fL 08/23/2023 9:06 PM [facility] MCH 22.4(L) 26.0 - 34.0 pg 08/23/2023 9:06 PM [facility] MCHC 27.9(L) 32.0 - 36.0 g/dL 08/23/2023 9:06 PM [facility] RDW 19.3(H) 11.5 - 15.5 % 08/23/2023 9:06 PM [facility] PLATELET COUNT 272 140 - 440 thou/cu mm 08/23/2023 9:06 PM [facility] MPV 10.0 6.5 - 11.0 fL 08/23/2023 9:06 PM [facility] Blood BLOOD SPECIMEN / Unknown IV Start / Unknown 08/23/2023 8:13 PM CDT 08/23/2023 8:16 PM CDT Elvira MICHELLE HEMATOLOGY Performing Organization Address City/[facility]/ZIP Co de Phone Number [facility] [address] [place] [address] * (ABNORMAL) RED CELL MORPHOLOGY (08/23/2023 8:13 PM CDT) Only the most recent of2 resultswithin the time period is included. ELLIPTOCYTES Moderate 08/23/2023 9:06 PM CDT [facility] POLYCHROMASIA Moderate 08/23/2023 9:06 PM CDT [facility] RBC COMMENT Present(A) RBC morphology appears normal, RBC morphology within normal limits for newborns. 08/23/2023 9:06 PM CDT [facility] LARGE PLATELETS Present 9:06 PM CDT [facility] Blood BLOOD SPECIMEN / Unknown IV Start / Unknown 08/23/2023 8:13 PM CDT 08/23/2023 8:16 PM CDT Elvira MICHELLE HEMATOLOGY Performing Organization Address City/[facility]/ZIP Co de Phone Number [facility] [address] [place] [address] * PLATELET ESTIMATE (08/23/2023 8:13 PM CDT) Only the most recent of2 resultswithin the time period is included. [facility] PLATELET ESTIMATE Adequate Adequate, No estimate 08/23/2023 9:06 PM CDT [facility] Blood BLOOD SPECIMEN / Unknown IV Start / Unknown 08/23/2023 8:13 PM CDT 08/23/2023 8:16 PM CDT Elvira MICHELLE HEMATOLOGY Performing Organization Address City/[facility]/ZIP Co de Phone Number [facility] [address] [place] [address] * LACTATE VENOUS (08/23/2023 8:13 PM CDT) LACTATE,VENOUS 0.5 0.5 - 2.0 mmol/L 08/23/2023 8:40 PM [facility] Blood BLOOD SPECIMEN / Unknown IV Start / Unknown 08/23/2023 8:13 PM CDT 08/23/2023 8:16 PM CDT Elvira MICHELLE CHEMISTRY [facility] [address] [place] [address] * (ABNORMAL) MANUAL DIFFERENTIAL (08/23/2023 8:13 PM CDT) Only the most recent of2 resultswithin the time period is included. % NEUTROPHILS 20.0 % 08/23/2023 9:06 PM [facility] % LYMPHOCYTES 48.0 % 08/23/2023 9:06 PM [facility] % MONOCYTES 31.0 % 08/23/2023 9:06 PM [facility] % EOSINOPHILS 1.0 % 08/23/2023 9:06 PM [facility] % BASOPHILS 0.0 % 08/23/2023 9:06 PM [facility] NEUTROPHILS ABSOLUTE 0.4(L) 1.7 - 7.0 thou/cu mm 08/23/2023 9:06 PM [facility] LYMPHOCYTES ABSOLUTE 0.9 0.9 - 2.9 thou/cu mm 08/23/2023 9:06 PM [facility] MONOCYTES ABSOLUTE 0.6 <0.9 thou/cu mm 08/23/2023 9:06 PM [facility] EOSINOPHILS ABSOLUTE 0.0 <0.5 thou/cu mm 08/23/2023 9:06 PM [facility] BASOPHILS ABSOLUTE 0.0 <0.3 thou/cu mm 08/23/2023 9:06 PM [facility] Blood BLOOD SPECIMEN / Unknown IV Start / Unknown 08/23/2023 8:13 PM CDT 08/23/2023 8:16 PM CDT Elvira MICHELLE HEMATOLOGY Performing Organization Address City/[facility]/ZIP Co de Phone Number [facility] [address] [place] [address] * (ABNORMAL) C-REACTIVE PROTEIN (08/23/2023 8:13 PM CDT) C-REACTIVE PROTEIN 2.8(H) <0.5 mg/dL 08/23/2023 8:41 PM T [facility] Blood BLOOD SPECIMEN / Unknown IV Start / Unknown 08/23/2023 8:13 PM CDT 08/23/2023 8:16 PM CDT Elvira MICHELLE CHEMISTRY Performing Organization Address [facility] Co de Phone Number [facility] [address] [place] [address] * (ABNORMAL) BASIC METABOLIC PANEL (08/23/2023 8:13 PM CDT) Only the most recent of2 resultswithin the time period is included. SODIUM 133(L) 136 - 145 mmol/L 08/23/2023 8:41 PM [facility] POTASSIUM 4.0 3.5 - 5.1 mmol/L 08/23/2023 8:41 PM [facility] CHLORIDE 104 98 - 107 mmol/L 08/23/2023 8:41 PM [facility] CO2,TOTAL 22 22 - 29 mmol/L 08/23/2023 8:41 PM [facility] ANION GAP 7 5 - 18 08/23/2023 8:41 PM [facility] GLUCOSE 80 70 - 99 mg/dL 08/23/2023 8:41 PM [facility] CALCIUM 8.4(L) 8.8 - 10.2 mg/dL 08/23/2023 8:41 PM [facility] BUN 14 8 - 23 mg/dL 08/23/2023 8:41 PM [facility] CREATININE 1.25(H) 0.70 - 1.20 mg/dL 08/23/2023 8:41 PM CDT [facility] BUN/CREAT RATIO 11 10 - 20 8:41 PM CDT [facility] eGFR 63(L) >90 mL/min/1.7 3m2 08/23/2023 8:41 PM CDT [facility] Comment:As of 2021, eG FR [...] 08/23/2023 8:16 PM CDT Elvira MICHELLE CHEMISTRY [facility] [address] [place] [address] * (ABNORMAL) RETICULOCYTES (08/06/2023 9:54 AM CDT) RETIC% 5.4(H) 0.5 - 1.5 % 08/06/2023 10:16 PM CDT [facility] RETIC (ABSOLUTE) 0.21(H) 0.03 - 0.08 mil/cu mm 08/06/2023 10:16 PM CDT [facility] Blood BLOOD SPECIMEN / Unknown Venipuncture / Unknown 08/06/2023 9:54 AM CDT 08/06/2023 9:54 AM CDT Narrative [facility] - 08/06/2023 10:16 PM CDT This procedure was originally ordered at [facility]. Lizeth Alarcon NP HEMATOLOGY [facility] [address] [place] [address], [place] * (ABNORMAL) HEPATIC FUNCTION PANEL (08/06/2023 9:54 AM CDT) ALBUMIN 3.1(L) 4.0 - 4.9 g/dL 08/06/2023 10:19 AM T [facility] PROTEIN,TOTAL 9.5(H) 6.0 - 8.0 g/dL 08/06/2023 10:19 AM T [facility] BILIRUBIN,TOTAL 0.6 0.0 - 1.2 mg/dL 08/06/2023 10:19 AM CDT [facility] BILIRUBIN,DIRECT <0.2 0.0 - 0.3 mg/dL 08/06/2023 10:19 AM T [facility] BILIRUBIN,INDIRE CT 08/06/2023 10:19 AM T [facility] Comment:Unable to calculate, Direct Bili <0.2 ALK PHOSPHATASE 87 40 - 129 IU/L 08/06/2023 10:19 AM T [facility] ALT (SGPT) 9(L) 10 - 50 IU/L 08/06/2023 10:19 AM T [facility] AST (SGOT) 39 10 - 50 IU/L 08/06/2023 10:19 AM [facility] Blood BLOOD SPECIMEN / Unknown Venipuncture / Unknown 08/06/2023 9:54 AM CDT 08/06/2023 9:54 AM CDT Lizeth Alarcon [employer] KEEPER CHEMISTRY Performing Organization Address City/State/[facility] Co de Phone Number [facility] [address] [place] [address] * CT CHEST ABDOMEN PELVIS WO (01/03/2023 [...] Reactive Non Reactive 10/11/2022 12:08 PM CDT [facility] ([facility]) Blood BLOOD SPECIMEN / Unknown Venipuncture / Unknown 10/09/2022 9:06 AM CDT 10/09/2022 9:06 AM CDT Narrative [facility]) - 10/11/2022 12:08 PM CDT Performed at: ??01 - [address] ??[id number] [employer]: Zane Rebolledo MD, Phone: ??[phone] Radha Edouard MD LABORATORY [facility] ([facility]) [facility] [place] [address], [place] * CT CHEST ABDOMEN PELVIS W [...] - 199 mg/dL 09/09/2022 12:53 PM CDT [facility] TRIGLYCERIDES 77 <150 mg/dL 09/09/2022 12:53 PM CDT [facility] HDL CHOLESTEROL 34(L) >40 mg/dL 12:53 PM CDT [facility] NON-HDL CHOLESTEROL 115 <145 mg/dl 09/09/2022 12:53 PM T [facility] CHOL/HDL RATIO 4.38 <4.50 09/09/2022 12:53 PM CDT [facility] LDL CHOLESTEROL 100 <=130 mg/dL 09/09/2022 12:53 PM T [facility] VLDL CHOLESTEROL 15 <=30 mg/dL 09/09/2022 12:53 PM T [facility] PROVIDER ORDERED STATUS RANDOM 09/09/2022 12:53 PM T [facility] Blood BLOOD SPECIMEN / Unknown Butterfly / Unknown 09/09/2022 12:06 PM CDT 09/09/2022 12:07 PM CDT David Ambrocio MD CHEMISTRY [facility] [address] [place] [address] from Last 3 Months or Most Recently [...] Answer Comments Code Status Discussion: Reviewed Preferences [facility] Care Teams Tool Lapper Hand Relationship Specialty Start Date End Date David Ambrocio MD [address] [place] [address] PCP - General Family Practice 11/27/22 Elvira Morin RN [address] [place] [address] Nurse Navigator - Oncology Registered Nurse 10/18/22 Radha Edouard MD [address] [place], [place] [phone] Medical Oncologist Hematology and Oncology 11/21/22 Lizeth Alarcon, [employer] K[employer]PER [address] [place], [place] [phone] Nurse Practitioner Hematology and Oncology 11/21/22 Scott, KYUNG Hong [address] [place] [address] Chairman 01/06/23 [place] [id number] [address] 01/21/23
== END 2023-09-30 10:26 | disposition home or self-care (01) ==
LOC: WOUND 10:25
PROVIDERS: PCP Internal Medicine; Visit Provider Nurse Practitioner Family
DX: I87.311 Chronic venous hypertension (idiopathic) with ulcer of right lower extremity (principal); L97.812 Non-pressure chronic ulcer of other part of right lower leg with fat layer exposed; Z72.0 Tobacco use
CPT/HCPCS: 11042; 11045

== ENCOUNTER 2023-10-07 11:32 | Outpatient (CLI) | payer MEDICARE, BC, SELFPAY ==
--- OUTSIDE RECORDS SUMMARY | 2023-10-07 11:36 | XMS_ITS | Clinical Summary ---
Author Organization [facility] Address [place], [place] [address] Care Team Providers Care Mapping Specialist Name Role Phone Elvira Morin Stefano RN Unavailable Radha Edouard MD Unavailable Lizeth Alarcon METAL BASE BLOCKER Unavailable David Ambrocio MD Primary Care Provider Jaylon RaymondW Unavailable [phone] [facility] Unavailable [phone] Allergies Active Allergy Reactions Criticality Noted Date [...] Department Care Team Description 09/25/2023 Lab Requisition [facility] [phone] David Gordon MD 09/10/2023 Lab Requisition [facility] [phone] David Gordon MD 08/29/2023 Lab Requisition [facility] [phone] Eloina Paniagua MD 08/27/2023 Orders Only [facility] Scanner 1 scan: (1-Ord) [place], LOWER LEG RT W/COM, 08/27/2023 08/23/2023 7:26 PM CDT - 08/23/2023 11:10 PM CDT Emergency [facility] [address] [place] [address] Elvira Thayer PA Abscess of right lower extremity (Primary Dx); Neutropenia, unspecified type (HC) Discharge Disposition: Home Self Care 08/23/2023 Travel 08/12/2023 11:00 AM CDT Office Visit [facility] [address] [place] [address] Radha Edouard MD Follow Up (Pancytopenia (HC) [D61.818]//) 08/12/2023 Travel 08/06/2023 9:47 AM CDT - 08/06/2023 11:59 PM CDT Hospital Encounter [facility] [address] [place] [address] Pancytopenia (HC) [D61.818] 08/06/2023 Travel 07/22/2023 10:15 AM CDT Office Visit [facility] [place] [address] [facility] [address] [place] [place] [phone] Faraz Henson R, DPM Consult (Bilateral foot [...] Info) Description 11/12/2023 9:00 AM CDT Appointment [facility] [address] [place] [address] 11/19/2023 11:15 AM CDT Office Visit [facility] [address] [place] [phone] Lizeth Alarcon, METAL BASE BLOCKER [address] [place] [address] Health Maintenance Due Date Last Done Comments [...] TECH 1 Routine 09/25/2023 9:10 AM CDT OC Routine 09/25/2023 9:10 AM CDT OB Routine 09/25/2023 9:10 AM CDT BM WETLAB Routine 09/25/2023 9:10 AM CDT BM/LB CHROM Routine 09/25/2023 9:10 AM CDT MYELOID NGS (LAB ONLY) Routine 9:10 AM CDT CYTOGENETICS BONE MARROW Routine 09/25/2023 9:10 AM CDT LAB TRACKING [...] CDT David Gordon MD LAB BILL ONLY [facility] [address] [place] [address], * MYELOID NGS (LAB ONLY) (09/25/2023 9:10 AM CDT) Bone Marrow (Bone Marrow Aspirate) 09/25/2023 9:10 AM CDT 09/26/2023 3:40 PM CDT David Gordon MD PATHOLOGY/CYTOLOGY Performing Organization Address City/[facility] Co de Phone Number [facility] [address] [place] [phone], [place] * BM/LB CHROM (09/25/2023 9:10 AM CDT) Bone Marrow (Bone Marrow Aspirate) 09/25/2023 9:10 AM CDT 09/26/2023 2:58 PM CDT David Gordon MD LABORATORY Performing Organization Address [facility] Co de Phone Number [facility] [address] [place] [address], [place] * BM WETLAB (09/25/2023 9:10 AM CDT) Bone Marrow (Bone Marrow Aspirate) 09/25/2023 9:10 AM CDT 09/26/2023 2:58 PM CDT David Gordon MD LABORATORY Performing Organization Address [facility] de Phone Number [facility] [address] [place] [address], [place] * OC (09/25/2023 9:10 AM CDT) Bone Marrow (Bone Marrow Aspirate) 09/25/2023 9:10 AM CDT 09/26/2023 2:58 PM CDT David Gordon MD LABORATORY Performing Organization Address [facility] de Phone Number [facility] [address] [place] [address], [place] * OB (09/25/2023 9:10 AM CDT) Bone Marrow (Bone Marrow Aspirate) 09/25/2023 9:10 AM CDT 09/26/2023 2:58 PM CDT David Gordon MD LABORATORY Performing Organization Address [facility] Co de Phone Number [facility] [address] [place] [address], [place] * CHROM TECH 2 (09/25/2023 9:10 AM CDT) Bone Marrow (Bone Marrow Aspirate) 09/25/2023 9:10 AM CDT 09/26/2023 2:58 PM CDT David Gordon MD LABORATORY Performing Organization Address [facility] Co de Phone Number [facility] [address] [address], [place] * CHROM TECH 1 (09/25/2023 9:10 AM CDT) Bone Marrow (Bone Marrow Aspirate) 09/25/2023 9:10 AM CDT 09/26/2023 2:58 PM CDT David Gordon MD LABORATORY Performing Organization Address [facility] Co de Phone Number [facility] [address] [place] [address], [place] * BONE MARROW DIFFERENTIAL (09/25/2023 9:10 AM CDT) Bone Marrow (Bone Marrow Aspirate) 09/25/2023 9:10 AM CDT 09/29/2023 7:59 AM CDT David Gordon MD LABORATORY Performing Organization Address [facility] de Phone Number [facility] [address] [place] [address], [place] * CYTOGENETIC BONE MARROW STUDIES (09/25/2023 9:10 AM CDT) RFR Acute Myeloid Leukemia, myeloid neoplasm. 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 See comments. 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 ??Trisomy 8 is classified as an intermediate prognostic risk stratification category in AML (NCCN, 2024). Clinicopathologic correlation of these results is recommended. 10/02/2023 12:17 PM CDT [facility] COMMENTS A preliminary chromosome result was provided to Manny Alfredo MD on 09/29/2023. 10/02/2023 12:17 PM CDT [facility] EN[facility]ORAT[facility] LAB TEST DETAILS Fully Analyzed Metaphases: ??20 Partially Analyzed Metaphases: ??0 Full Karyotypes: ??3 10/02/2023 12:17 PM CDT [facility] EN[facility] LABORATORY SOURCE Bone Marrow (NaHep) [id number] B1-2 10/02/2023 12:17 PM CDT [facility] EN[facility] METHODS Cultures used in chromosome analysis were non-stimulated. Chromosome analysis is performed on consecutive analyzable G-banded metaphases. 10/02/2023 12:17 PM CDT [facility] REFERENCES National Comprehensive Cancer Network. (2023). Acute Myeloid Leukemia (version 3.2023). Retrieved from https://www.nccn.o rg/professionals/p hysician_gls/pdf/a ml.pdf. Kenia Germain., Alexei Dominguez, Gurjit Pillai., Rachell Kebede., Alivia Nesbitt., Sravani Fortune., Isai Wilson. (Eds): WHO Classification of Tumours of Haematopoietic and Lymphoid Tissues. (Revised 4th edition) IARC: Michael 2017. 10/02/2023 12:17 PM CDT [facility] DISCLAIMER This test was developed and its performance characteristics determined by the [facility]. It has not been cleared or approved by the U.S. Food and Drug Administration. The FDA does not require these tests to go through premarket FDA review. These tests are used for clinical purposes. They should not be regarded as investigational or for research. This laboratory is certified under the Clinical Laboratory Improvement Amendments (CLIA) as qualified to perform high complexity clinical laboratory testing. 10/02/2023 12:17 PM CDT [facility]ORY Bone Marrow (Bone Marrow Aspirate) 09/25/2023 9:10 AM CDT 09/26/2023 2:58 PM CDT David Gordon MD LABORATORY [facility] [address] [place] [address], * BONE MARROW STUDY (09/25/2023 9:10 AM CDT) Case Report Bone Marrow Pathology Report ?Case: [id number] ? Authorizing Provider: ??David Gordon MD ?Collected: ? 09/25/2023 0910 ? Ordering Location: ? [facility] ?Received: ?09/26/2023 0625 ? Pathologist: ? Manny Alfredo MD ? Specimens: ?? A) - Bone Marrow Aspirate ? B) - Bone Marrow Aspirate (Heparinized) ? C) - Bone Marrow Core Biopsy ? D) - Peripheral Blood ? 10/03/2023 8:51 AM T [facility] Amendment 10/03/2023 - Amendment to report [facility] Myeloid Targeted Next Generation Sequencing (NGS) results. Please see diagnosis and attached scanned report. Results are communicated with Dr. Edouard via Secure Chat on 10/03/[address] Alfredo. 10/03/2023 8:51 AM T [facility] Final Diagnosis BONE MARROW AND PERIPHERAL BLOOD: 1. 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 ??Bone marrow blasts: ? 25% ?b. ??Bone marrow cellularity: ??85% ?c. ??Peripheral blood: ?- Blasts: ??6.3% ?- Moderate hypochromic, normocytic anemia ?- Moderate absolute neutropenia 2. ??Ancillary studies: ?a. ??Cytogenetics: ?- Final results reveal +8; see appended report ?b. ??Molecular: ?- [facility] Myeloid NGS comprehensive DNA gene panel: Positive for ASXL1, BRAF, CEBPA, IDH1, and SRSF2 mutations; see attached report 10/03/2023 8:51 AM [facility] Amendment electronically signed by Manny Alfredo MD on 10/03/2023 at 8:51 AM Comment Results are electronically communicated via Secure [...] however, +8 is not recognized by WHO 2 as a defining cytogenetic abnormality.) 10/03/2023 8:51 AM [facility] Clinical Information Mr. Alba is a 68 y.o. With a peripheral blood morphology consistent with a myeloid neoplasm with 1-2% circulating blasts, moderate microcytic hypochromic anemia with reticulocytosis (6.7%), leukopenia reflecting mild absolute neutropenia with dysgranulopoiesis and lymphocytopenia, and mild absolute monocytosis ([id number], 09/10/23). A bone marrow biopsy is performed for further characterization. 10/03/2023 8:51 AM [facility] PROCEDURE A RIGHT lateral bone marrow biopsy and unilateral aspiration procedure is performed at [facility] on 09/25/23. VIVIANA Monterroso performed the procedure using an 8 gauge manual needle. The ordering physicians are Drs. Gordon and Silke. The specimen is inked orange. EVM 09/26/2023 10/03/2023 8:51 AM [facility] CBC and Differential HEMATOLOGY PARAMETERS Tested at: ??[facility] ? RESULTS ??EXPECTED VALUES WBC: ? 1.6 ?4.5-94j7855/cumm ?DECREASED RBC: ? 3.8 ?4.30-5.90 mil/cumm ??DECREASED HGB: ? 8.5 ?13.5-17.5 gm/di ? DECREASED HCT: ? 30.7 ? 37-53% ?DECREASED MCV: ? 81.0 ? 80-100 fl ? NORMOCYTIC MCH: ? 23.0 ? 26-34 pg ?DECREASED MCHC: ?28.0 ? 32-36 gm/dl ? HYPOCHROMIC RDW: ? 22.5 ? 11.5-15.5% ?ELEVATED PLT: ? 253 ?140-421g7150/uL ? Retic: ?? 7.91 ?0.5-1.5% ? ELEVATED Differential ?Tested at: ??[facility] ?Absolute (%) ?Expected (%) ?(x10*9/L) ? (x10*9/L) Neutrophils: ?0.5 (31.3) ?1.7-7.0 (42-72%) ??DECREASED Lymphocytes: ?0.6 (37.5) ?0.9-2.9 (20-44%) ??DECREASED Monocytes: ?0.4 (25) ? <0.9 (0-11%) ? Blasts: ? 0.1 (6.3) ? 0 ??(0%) ? BLASTS 10/03/2023 8:51 AM CDT [facility] Reticulocytes Retic: 7.91 0.5-1.5% ELEVATED 10/03/2023 8:51 AM T [facility] Bone Marrow Differential Blasts: ?23.6 ?0.2-1.5% ?ELEVATED Neutrophils & precursors: ??14.4 ?58.0-65.0% ?DECREASED Erythroid precursors: ?38 ?18.0-24.0% ?ELEVATED Lymphocytes: ? 21 ? 3.0-24.0% ? Monocytes: ? 2.2 ? 0.7-2.8% ? Plasma cells: ?0.8 ? 0.1-1.5% ? M:E Ratio: ? 14 : 38 10/03/2023 8:51 AM [facility] Microscopic Description The final diagnosis is based on microscopic examination of an appropriately stained blood smear. SPECIMENS EXAMINED: Peripheral blood Aspirate direct and concentrate smears: ??Adequate Particle crush smears Touch imprints Clot section Bone core trephine sample (decalcified): ??Adequate, 1.6 cm Bone core and clot section color: ??Laurens PERIPHERAL BLOOD: The peripheral smear features support [...] Adequate Sideroblastic iron: Decreased Ringed sideroblasts: Absent 10/03/2023 8:51 AM CDT [facility] Flow Cytometry Summary Diagnostic Acute Myeloid [...] Trace positive markers: CD7/CD36 Negative markers: CD65/CD15/CD10/CD64 /HC654e/CD14/CD56/C D11b/CD16/CD2/CD5/C D235a/CD19/CD22(CYT O)/CD79a(CYTO)/TdT( n)/CD3(CYTO) Quality Assessment Viability (7-AAD): 62% Nucleated cells analyzed: 53777 Limit of detection (LOD): 0.1% These results and cytograms have been verified by Dr. Alfredo. This test was developed and its performance characteristics verified by [facility]. It has not been cleared or approved [...] Flow Tech: Flor Alvarez, 09/26/2023 3:50 PM 10/03/2023 8:51 AM CDT [facility] Cytogenetics Summary Cytogenetic testing has been ordered and will be reported separately. 10/03/2023 8:51 AM CDT [facility] Other Testing Immunostains were performed on the bone core biopsy. CD34 (blast marker) (manual morphometry: ??25% 10/03/2023 8:51 AM CDT [facility] Additional Information Interpreted at [facility] - [address] [place] [id number] Immunohistochemistr y controls were reviewed and approved by the pathologist during this examination. 10/03/2023 8:51 AM CDT [facility] Bone Marrow (Bone Marrow Aspirate) 09/25/2023 [...] David Gordon MD LABORATORY Performing Organization Address City/State/[facility] Co de Phone Number [facility] [address] [place] [address], * PERIPHERAL BLD MORPHOLOGY (09/10/2023 10:34 AM CDT) Only the most recent of2 resultswithin the time period is included. Case Report Special Hematology Report ? Case: [id number] ? Authorizing Provider: ??David Gordon MD ?Collected: ? 09/10/2023 1034 ? Ordering Location: ? [facility] ?Received: ?09/10/20232124 ? Pathologist: ? Rolando Retana MD ? Specimen: ?Peripheral Blood ? 09/12/2023 4:51 PM CDT [facility] ENTRAL LABORATORY Final Diagnosis PERIPHERAL BLOOD: Continued changes consistent with a myeloid neoplasm 1. 1-2% circulating blasts 2. Moderate microcytic hypochromic anemia with reticulocytosis (6.7%) 3. 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 Mild absolute monocytosis 5. See comment 09/12/2023 4:51 PM CDT [facility] LAB[facility] Comment Since the last described peripheral blood morphology 08/06/2023 ([id number]), the blast count is roughly unchanged. The [...] also reviewed by Mari Armijo MT, MS ([facility]). 09/12/2023 4:51 PM CDT [facility] Clinical Information The patient is a 60-year-old male. Pertinent clinical information: Anemia. Per EPIC: She visited the ER 08/23/2023 for an abscess and neutropenia. ??Additional history includes hypertension. His most recent peripheral blood morphology 08/06/2023 ([id number]) showed changes consistent with a myeloid neoplasm with 2% circulating blasts, moderate normocytic anemia, and leukopenia with marked absolute neutropenia with dysgranulopoiesis. 08/23/23 20:13 CREATININE: 1.25 (H) eGFR: ? 63 (L) 09/12/2023 4:51 PM CDT [facility] CBC and Differential HEMATOLOGY PARAMETERS Tested at: ??[facility] ? RESULTS ??EXPECTED VALUES WBC: ? 3.3 ?4.5-07k4198/cumm ?DECREASED RBC: ? 3.65 ? 4.30-5.90 mil/cumm ??DECREASED HGB: ? 8.1 ?13.5-17.5 gm/di ? DECREASED HCT: ? 28.8 ? 37-53% ?DECREASED MCV: ? 79.0 ? 80-100 fl ? MICROCYTIC MCH: ? 22.0 ? 26-34 pg ?DECREASED MCHC: ?28.0 ? 32-36 gm/dl ? HYPOCHROMIC RDW: ? 20.3 ? 11.5-15.5% ?ELEVATED PLT: ? 310 ?140-194u8751/uL ? Retic: ?? 6.7 ?0.5-1.5% ?ELEVATED Differential ?Absolute (%) ?Expected (%) ?(x10*9/L) ? (x10*9/L) Neutrophils: ?1.4 (42.6) ?1.7-7.0 (42-72%) ??DECREASED Lymphocytes: ?0.4 (12.2) ?0.9-2.9 (20-44%) ??DECREASED Monocytes: ?1.2 (36.5) ? <0.9 (0-11%) ? ELEVATED Eosinophils: ?0.2 (6.1) ?<0.5 (0-2%) ? 09/12/2023 4:51 PM CDT [facility] Microscopic Description The final diagnosis is based on microscopic examination of an appropriately stained blood smear. 09/12/2023 4:51 PM CDT [facility] Additional Information Interpreted at [facility] - [address] [facility] [address], [place] [address] 09/12/2023 4:51 PM CDT [facility] Blood (Peripheral Blood) 09/10/2023 10:34 AM CDT 09/10/2023 9:25 PM CDT David Gordon MD HEMATOLOGY [facility] [address] [place] [address], * PATH TISSUE EXAM (08/29/2023 8:40 AM CDT) Case Report Pathology Report ?Case: [id number] ? Authorizing Provider: ??Eloina Paniagua MD ?Collected: ? 08/29/2023 0840 ? Ordering Location: ? [facility] ?Received: ?08/29/2023 1517 ? Pathologist: ? Georgie Rocha MD ? Specimen: ?Right Leg, Right leg chronic wound necrotic tissue ? 09/03/2023 3:31 PM CDT [facility] EN[facility]AL LABORATORY Final Diagnosis SKIN AND SOFT TISSUE, RIGHT LEG CHRONIC WOUND, EXCISION: 1. ??Ulcer bed with reactive epithelial hyperplasia, dense dermal mixed inflammatory infiltrate and prominent fibrosis 2. ??No evidence of vasculitis or malignancy right leg 09/03/2023 3:31 PM CDT [facility] EN[facility]AL LABORATORY Clinical Information Right leg chronic wound necrotic tissue. 09/03/2023 3:31 PM CDT [facility] Gross Description A) Received in formalin, labeled with the patient's name and right leg chronic wound necrotic tissue, is a portion of skin excision measuring 11.5 x 5.5 cm, excised to 1.0 cm deep. The skin surface is entirely dark brown mummified and necrotic. The resection margin is inked blue. The cut surface shows red-brown skeletal. No solid mass is identified. Truck Sales Manager sections are submitted in 2 cassettes. TTP 08/29/2023 09/03/2023 3:31 PM CDT [facility] Microscopic Description The final diagnosis is based on microscopic examination of appropriate sections of all specimens. The presence of blue ink is confirmed on tissue sections. 09/03/2023 3:31 PM CDT [facility] Additional Information Interpreted at [facility] - [address] [facility] [address], [place] [address] 09/03/2023 3:31 PM CDT [facility] Other (Right Leg) 08/29/2023 8:40 AM CDT 08/29/2023 3:17 PM CDT Eloina Paniagua MD PATHOLOGY/CYTOLOGY [facility] [address] [place] [address], * SCAN-CT INTERPRETATION (08/27/2023 12:00 AM CDT) [...] (ABNORMAL) SEDIMENTATION RATE (08/23/2023 8:13 PM CDT) Pathologist [facility] SEDIMENTATION RATE 51(H) <20 mm/hr 2023 8:38 PM T [facility] Blood BLOOD SPECIMEN / Unknown IV Start / Unknown 08/23/2023 8:13 PM CDT 08/23/2023 8:16 PM CDT Elvira MICHELLE HEMATOLOGY [facility] [address] [place] [address] * (ABNORMAL) CBC WITH AUTO DIFFERENTIAL (08/23/2023 8:13 PM CDT) Only the most recent of2 resultswithin the time period is included. [facility] WHITE BLOOD COUNT 1.9(L) 4.5 - 11.0 thou/cu mm 08/23/2023 9:06 PM [facility] RED BLOOD COUNT 3.30(L) 4.30 - 5.90 mil/cu mm 08/23/2023 9:06 PM [facility] HEMOGLOBIN 7.4(L) 13.5 - 17.5 g/dL 08/23/2023 9:06 PM [facility] HEMATOCRIT 26.5(L) 37.0 - 53.0 % 08/23/2023 9:06 PM [facility] MCV 80 80 - 100 fL 08/23/2023 9:06 PM [facility] MCH 22.4(L) 26.0 - 34.0 pg 08/23/2023 9:06 PM [facility] MCHC 27.9(L) 32.0 - 36.0 g/dL 08/23/2023 9:06 PM [facility] RDW 19.3(H) 11.5 - 15.5 % 08/23/2023 9:06 PM [facility] PLATELET COUNT 272 140 - 440 thou/cu mm 08/23/2023 9:06 PM [facility] MPV 10.0 6.5 - 11.0 fL 08/23/2023 9:06 PM CDT [facility] Blood BLOOD SPECIMEN / Unknown IV Start / Unknown 08/23/2023 8:13 PM CDT 08/23/2023 8:16 PM CDT Elvira MICHELLE HEMATOLOGY [facility] [address] [place] [address] * (ABNORMAL) RED CELL MORPHOLOGY (08/23/2023 8:13 PM CDT) Only the most recent of2 resultswithin the time period is included. ELLIPTOCYTES Moderate 08/23/2023 9:06 PM CDT [facility] POLYCHROMASIA Moderate 08/23/2023 9:06 PM CDT [facility] RBC COMMENT Present(A) RBC morphology appears normal, RBC morphology within normal limits for newborns. 08/23/2023 9:06 PM CDT [facility] LARGE PLATELETS Present 9:06 PM CDT [facility] Blood BLOOD SPECIMEN / Unknown IV Start / Unknown 08/23/2023 8:13 PM CDT 08/23/2023 8:16 PM CDT Elvira MICHELLE HEMATOLOGY [facility] [address] [place] [address] * PLATELET ESTIMATE (08/23/2023 8:13 PM CDT) Only the most recent of2 resultswithin the time period is included. PLATELET ESTIMATE Adequate Adequate, No estimate 08/23/2023 9:06 PM CDT [facility] Blood BLOOD SPECIMEN / Unknown IV Start / Unknown 08/23/2023 8:13 PM CDT 08/23/2023 8:16 PM CDT Elvira MICHELLE HEMATOLOGY [facility] [address] [place] [address] * LACTATE VENOUS (08/23/2023 8:13 PM CDT) [facility] LACTATE,VENOUS 0.5 0.5 - 2.0 mmol/L 08/23/2023 8:40 PM CDT [facility] Blood BLOOD SPECIMEN / Unknown IV Start / Unknown 08/23/2023 8:13 PM CDT 08/23/2023 8:16 PM CDT Elvira MICHELLE CHEMISTRY Performing Organization Address [facility] Co de Phone Number [facility] [address] [place] [address] * (ABNORMAL) MANUAL DIFFERENTIAL (08/23/2023 8:13 PM CDT) Only the most recent of2 resultswithin the time period is included. [facility] % NEUTROPHILS 20.0 % 08/23/2023 9:06 PM [facility] % LYMPHOCYTES 48.0 % 08/23/2023 9:06 PM [facility] % MONOCYTES 31.0 % 08/23/2023 9:06 PM [facility] % EOSINOPHILS 1.0 % 08/23/2023 9:06 PM [facility] % BASOPHILS 0.0 % 08/23/2023 9:06 PM [facility] NEUTROPHILS ABSOLUTE 0.4(L) 1.7 - 7.0 thou/cu mm 08/23/2023 9:06 PM [facility] LYMPHOCYTES ABSOLUTE 0.9 0.9 - 2.9 thou/cu mm 08/23/2023 9:06 PM [facility] MONOCYTES ABSOLUTE 0.6 <0.9 thou/cu mm 08/23/2023 9:06 PM [facility] EOSINOPHILS ABSOLUTE 0.0 <0.5 thou/cu mm 08/23/2023 9:06 PM [facility] BASOPHILS ABSOLUTE 0.0 <0.3 thou/cu mm 08/23/2023 9:06 PM CDT [facility] Blood BLOOD SPECIMEN / Unknown IV Start / Unknown 08/23/2023 8:13 PM CDT 08/23/2023 8:16 PM CDT Elvira MICHELLE HEMATOLOGY Performing Organization Address [facility]/ZIP Co de Phone Number [facility] [address] [place] [address] * (ABNORMAL) C-REACTIVE PROTEIN (08/23/2023 8:13 PM CDT) Pathologist [facility] C-REACTIVE PROTEIN 2.8(H) <0.5 mg/dL 08/23/2023 8:41 PM CDT [facility] Blood BLOOD SPECIMEN / Unknown IV Start / Unknown 08/23/2023 8:13 PM CDT 08/23/2023 8:16 PM CDT Elvira MICHELLE CHEMISTRY Performing Organization Address [facility] Co de Phone Number [facility] [address] [place] [address] * (ABNORMAL) BASIC METABOLIC PANEL (08/23/2023 8:13 PM CDT) Only the most recent of2 resultswithin the time period is included. SODIUM 133(L) 136 - 145 mmol/L 08/23/2023 8:41 PM T [facility] POTASSIUM 4.0 3.5 - 5.1 mmol/L 08/23/2023 8:41 PM [facility] CHLORIDE 104 98 - 107 mmol/L 08/23/2023 8:41 PM T [facility] CO2,TOTAL 22 22 - 29 mmol/L 08/23/2023 8:41 PM [facility] ANION GAP 7 5 - 18 08/23/2023 8:41 PM [facility] GLUCOSE 80 70 - 99 mg/dL 08/23/2023 8:41 PM CDT [facility] CALCIUM 8.4(L) 8.8 - 10.2 mg/dL 08/23/2023 8:41 PM CDT [facility] BUN 14 8 - 23 mg/dL 08/23/2023 8:41 PM CDT [facility] CREATININE 1.25(H) 0.70 - 1.20 mg/dL 08/23/2023 8:41 PM CDT [facility] BUN/CREAT RATIO 11 10 - 20 8:41 PM CDT [facility] eGFR 63(L) >90 mL/min/1.7 3m2 08/23/2023 8:41 PM CDT [facility] Comment:As of 2021, eG [...] 08/23/2023 8:16 PM CDT Elvira MICHELLE CHEMISTRY [facility] [address] [place] [id number] * (ABNORMAL) RETICULOCYTES (08/06/2023 9:54 AM CDT) RETIC% 5.4(H) 0.5 - 1.5 % 08/06/2023 10:16 PM CDT [facility] RETIC (ABSOLUTE) 0.21(H) 0.03 - 0.08 mil/cu mm 08/06/2023 10:16 PM CDT [facility] Blood BLOOD SPECIMEN / Unknown Venipuncture / Unknown 08/06/2023 9:54 AM CDT 08/06/2023 9:54 AM CDT Narrative [facility] - 08/06/2023 10:16 PM CDT This procedure was originally ordered at [facility]. Lizeth Alarcon NP HEMATOLOGY Performing Organization Address City/[facility]/ZIP Co de Phone Number [facility] [address] [place] [address], * (ABNORMAL) HEPATIC FUNCTION PANEL (08/06/2023 9:54 AM CDT) ALBUMIN 3.1(L) 4.0 - 4.9 g/dL 08/06/2023 10:19 AM T [facility] PROTEIN,TOTAL 9.5(H) 6.0 - 8.0 g/dL 08/06/2023 10:19 AM [facility] BILIRUBIN,TOTAL 0.6 0.0 - 1.2 mg/dL 08/06/2023 10:19 AM [facility] BILIRUBIN,DIRECT <0.2 0.0 - 0.3 mg/dL 08/06/2023 10:19 AM [facility] BILIRUBIN,INDIRE CT 08/06/2023 10:19 AM [facility] Comment:Unable to calculate, Direct Bili <0.2 ALK PHOSPHATASE 87 40 - 129 IU/L 08/06/2023 10:19 AM [facility] ALT (SGPT) 9(L) 10 - 50 IU/L 08/06/2023 10:19 AM [facility] AST (SGOT) 39 10 - 50 IU/L 08/06/2023 10:19 AM [facility] Blood BLOOD SPECIMEN / Unknown Venipuncture / Unknown 08/06/2023 9:54 AM CDT 08/06/2023 9:54 AM CDT Lizeth Alarcon NP CHEMISTRY Performing Organization Address City/[facility]/ZIP Co de Phone Number [facility] [address] [place] [address] * CT CHEST ABDOMEN PELVIS WO (01/03/2023 [...] MD @ 01/03/2023 3:02:28 AM (Electronically Signed) [facility]a [facility] CT * LC HCV ANTIBODY RFX TO QUANT PCR (10/09/2022 9:06 AM CDT) HCV Ab Non Reactive Non Reactive 10/11/2022 12:[address] [facility] ESOTERIC TESTING (CET) Blood BLOOD SPECIMEN / Unknown Venipuncture / Unknown 10/09/2022 9:06 AM CDT 10/09/2022 9:06 AM CDT Narrative FOR ESOTERIC TESTING (CET) - 10/11/2022 12:08 PM CDT Performed at: ??01 - [facility] [place], [place] ??[id number] Adobe Cq Developer: Zane Rebolledo MD, Phone: ??[phone] Radha Edouard MD LABORATORY FOR ESOTERIC TESTING (CET) [address] [place] [address], [place] * CT CHEST ABDOMEN PELVIS W [...] - 199 mg/dL 09/09/2022 12:53 PM CDT [facility] TRIGLYCERIDES 77 <150 mg/dL 09/09/2022 12:53 PM CDT [facility] HDL CHOLESTEROL 34(L) >40 mg/dL 12:53 PM T [facility] NON-HDL CHOLESTEROL 115 <145 mg/dl 09/09/2022 12:53 PM T [facility] CHOL/HDL RATIO 4.38 <4.50 09/09/2022 12:53 PM T [facility] LDL CHOLESTEROL 100 <=130 mg/dL 09/09/2022 12:53 PM T [facility] VLDL CHOLESTEROL 15 <=30 mg/dL 09/09/2022 12:53 PM T [facility] PROVIDER ORDERED STATUS RANDOM 09/09/2022 12:53 PM T [facility] Blood BLOOD SPECIMEN / Unknown Butterfly / Unknown 09/09/2022 12:06 PM CDT 09/09/2022 12:07 PM CDT David Ambrocio MD CHEMISTRY [facility] [address] [place] [address] from Last 3 Months or Most Recently [...] Status Discussion: Reviewed Preferences wit Care Teams Mapping Specialist Relationship Specialty Start Date End Date David Ambrocio MD [address] [place] [id number] PCP - General Family Practice 11/27/22 Elvira Morin RN [address] [facility] [place] [id number] Nurse Navigator - Oncology Registered Nurse 10/18/22 Radha Edouard MD 200 [facility] [place] [id number] Medical Oncologist Hematology and Oncology 11/21/22 Lizeth Alarcon, METAL BASE BLOCKER [address] [place] [address] Nurse Practitioner Hematology and Oncology 11/21/22 [place], KYUNG Hong [address] [place] [address] Anger Control Counselor 01/06/23 [id number], [place] [address] 01/21/23
== END 2023-10-07 11:33 | disposition home or self-care (01) ==
LOC: WOUND 11:32
PROVIDERS: PCP Internal Medicine; Visit Provider Nurse Practitioner Family
DX: I87.311 Chronic venous hypertension (idiopathic) with ulcer of right lower extremity (principal); L97.212 Non-pressure chronic ulcer of right calf with fat layer exposed
CPT/HCPCS: 15271; 15272; Q4151

== ENCOUNTER 2023-10-14 11:22 | Outpatient (CLI) | payer MEDICARE, BC, SELFPAY ==
--- OUTSIDE RECORDS SUMMARY | 2023-10-14 11:24 | XMS_ITS | Clinical Summary ---
Author Organization [facility] Address [place], [place] [address] Care Team Providers Care Insurance Representative Name Role Phone Elvira Morin Stefano RN Unavailable Radha Edouard MD Unavailable Lizeth Alarcon CORPORATE COMMUNICATIONS MANAGER Unavailable David Ambrocio MD Primary Care Provider [phone] Jaylon RaymondW Unavailable [phone] [facility] Allergies Active Allergy Reactions [...] Department Care Team Description 09/25/2023 Lab Requisition [facility] [phone] David Gordon MD 09/10/2023 Lab Requisition [facility] [phone] David Gordon MD 08/29/2023 Lab Requisition [facility] [phone] Eloina Paniagua MD 08/27/2023 Orders Only [facility] Scanner 1 scan: (1-Ord) [place], LOWER LEG RT W/COM, 08/27/2023 08/23/2023 7:26 PM CDT - 08/23/2023 11:10 PM CDT Emergency [facility] [address] [place] [address] Elvira Thayer PA Abscess of right lower extremity (Primary Dx); Neutropenia, unspecified type (HC) Discharge Disposition: Home Self Care 08/23/2023 Travel 08/12/2023 11:00 AM CDT Office Visit [facility] [address] [place] [address] Radha Edouard MD Follow Up (Pancytopenia (HC) [D61.818]//) 08/12/2023 Travel 08/06/2023 9:47 AM CDT - 08/06/2023 11:59 PM CDT Hospital Encounter [facility] [address] [place] [address] Pancytopenia (HC) [D61.818] 08/06/2023 Travel 07/22/2023 10:15 AM CDT Office Visit [facility] [place] [address] [facility] [address] [place] [phone] Faraz Henson R, DPM Consult (Bilateral foot [...] Info) Description 11/12/2023 9:00 AM CDT Appointment [facility] [address] [place] [address] 11/19/2023 11:15 AM CDT Office Visit [facility] [address] [place] [phone] Lizeth Alarcon, CORPORATE COMMUNICATIONS MANAGER [address] [place] [address] Health Maintenance Due Date Last Done Comments [...] CDT David Gordon MD LAB BILL ONLY [facility] [address] [place] [address], * MYELOID NGS (LAB ONLY) (09/25/2023 9:10 AM CDT) Bone Marrow (Bone Marrow Aspirate) 09/25/2023 9:10 AM CDT 09/26/2023 3:40 PM CDT David Gordon MD PATHOLOGY/CYTOLOGY Performing Organization Address City/[facility] Co de Phone Number [facility] [address] [place] [address], [place] * BM/LB CHROM (09/25/2023 9:10 AM CDT) Bone Marrow (Bone Marrow Aspirate) 09/25/2023 9:10 AM CDT 09/26/2023 2:58 PM CDT David Gordon MD LABORATORY Performing Organization Address [facility] Co de Phone Number [facility] [address] [place] [address], [place] * BM WETLAB (09/25/2023 9:10 AM CDT) Bone Marrow (Bone Marrow Aspirate) 09/25/2023 9:10 AM CDT 09/26/2023 2:58 PM CDT David Gordon MD LABORATORY Performing Organization Address [facility] de Phone Number [facility] [address] [place] [address], [place] * OC (09/25/2023 9:10 AM CDT) Bone Marrow (Bone Marrow Aspirate) 09/25/2023 9:10 AM CDT 09/26/2023 2:58 PM CDT David Gordon MD LABORATORY Performing Organization Address [facility] de Phone Number [facility] [address] [place] [address], [place] * OB (09/25/2023 9:10 AM CDT) Bone Marrow (Bone Marrow Aspirate) 09/25/2023 9:10 AM CDT 09/26/2023 2:58 PM CDT David Gordon MD LABORATORY Performing Organization Address [facility] Co de Phone Number [facility] [address] [place] [address], [place] * CHROM TECH 2 (09/25/2023 9:10 AM CDT) Bone Marrow (Bone Marrow Aspirate) 09/25/2023 9:10 AM CDT 09/26/2023 2:58 PM CDT David Gordon MD LABORATORY Performing Organization Address [facility] Co de Phone Number [facility] [address] [address], [place] * CHROM TECH 1 (09/25/2023 9:10 AM CDT) Bone Marrow (Bone Marrow Aspirate) 09/25/2023 9:10 AM CDT 09/26/2023 2:58 PM CDT David Gordon MD LABORATORY Performing Organization Address [facility] Co de Phone Number [facility] [address] [place] [address], [place] * BONE MARROW DIFFERENTIAL (09/25/2023 9:10 AM CDT) Bone Marrow (Bone Marrow Aspirate) 09/25/2023 9:10 AM CDT 09/29/2023 7:59 AM CDT David Gordon MD LABORATORY Performing Organization Address [facility] de Phone Number [facility] [address] [place] [address], [place] * CYTOGENETIC BONE MARROW STUDIES (09/25/2023 9:10 AM CDT) RFR Acute Myeloid Leukemia, myeloid neoplasm. 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 See comments. 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 ??Trisomy 8 is classified as an intermediate prognostic risk stratification category in AML (NCCN, 2024). Clinicopathologic correlation of these results is recommended. 10/02/2023 12:17 PM CDT [facility] COMMENTS A preliminary chromosome result was provided to Manny Alfredo MD on 09/29/2023. 10/02/2023 12:17 PM CDT [facility] LAB TEST DETAILS Fully Analyzed Metaphases: ??20 Partially Analyzed Metaphases: ??0 Full Karyotypes: ??3 10/02/2023 12:17 PM CDT [facility] SOURCE Bone Marrow (NaHep) [id number] B1-2 10/02/2023 12:17 PM CDT [facility] METHODS Cultures used in chromosome analysis were non-stimulated. Chromosome analysis is performed on consecutive analyzable G-banded metaphases. 10/02/2023 12:17 PM CDT [facility] EN[facility] LABORATORY REFERENCES National Comprehensive Cancer Network. (2023). Acute Myeloid Leukemia (version 3.2023). Retrieved from https://www.nccn.o rg/professionals/p hysician_gls/pdf/a ml.pdf. Kenia Germain., Alexei Dominguez, Gurjit Pillai., Rachell Kebede., Alivia Nesbitt., Sravani Fortune., Isai Wilson. (Eds): WHO Classification of Tumours of Haematopoietic and Lymphoid Tissues. (Revised 4th edition) IARC: Michael 2017. 10/02/2023 12:17 PM CDT [facility] ENTR[facility] LABORATORY DISCLAIMER This test was developed and its performance characteristics determined by the [facility] Cytogenetics Laboratory. It has not been cleared [...] clinical laboratory testing. 10/02/2023 12:17 PM CDT [facility]AL LABORATORY Bone Marrow (Bone Marrow Aspirate) 09/25/2023 9:10 AM CDT 09/26/2023 2:58 PM CDT David Gordon MD LABORATORY [facility] [address] [place] [address], * BONE MARROW STUDY (09/25/2023 9:10 AM CDT) Case Report Bone Marrow Pathology Report ?Case: [id number] ? Authorizing Provider: ??David Gordon MD ?Collected: ? 09/25/2023 0910 ? Ordering Location: ? [facility] ?Received: ?09/26/2023 0625 ? Pathologist: ? Manny Alfredo MD ? Specimens: ?? A) - Bone Marrow Aspirate ? B) - Bone Marrow Aspirate (Heparinized) ? C) - Bone Marrow Core Biopsy ? D) - Peripheral Blood ? 10/03/2023 8:51 AM T [facility]- [facility]AL LABORATORY Amendment 10/03/2023 - Amendment to report [facility] Myeloid Targeted Next Generation Sequencing (NGS) results. Please see diagnosis and attached scanned report. Results are communicated with Dr. Edouard via Secure Chat on 10/03/[address] Alfredo. 10/03/2023 8:51 AM T [facility] LABORATORY Final Diagnosis BONE [...] mutations; see attached report 10/03/2023 8:[address] [facility] Amendment electronically signed by Manny Alfredo [...] a defining cytogenetic abnormality.) 10/03/2023 8:[address] [facility] Clinical Information Mr. Alba is a 68 y.o. 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 A bone marrow biopsy is performed for further characterization. 10/03/2023 8:[address] [facility] PROCEDURE A RIGHT lateral bone marrow biopsy and unilateral aspiration procedure is performed at [facility] on 09/25/23. VIVIANA Monterroso performed the procedure using an 8 gauge manual needle. The ordering physicians are Drs. Gordon and Silke. The specimen is inked orange. EVM 09/26/2023 10/03/2023 8:[address] [facility] CBC and Differential HEMATOLOGY PARAMETERS Tested at: ??[facility] ? RESULTS ??EXPECTED VALUES WBC: ? 1.6 ?4.5-61q3652/cumm ?DECREASED RBC: ? 3.8 ?4.30-5.90 mil/cumm ??DECREASED HGB: ? 8.5 ?13.5-17.5 gm/di ? DECREASED HCT: ? 30.7 ? 37-53% ?DECREASED MCV: ? 81.0 ? 80-100 fl ? NORMOCYTIC MCH: ? 23.0 ? 26-34 pg ?DECREASED MCHC: ?28.0 ? 32-36 gm/dl ? HYPOCHROMIC RDW: ? 22.5 ? 11.5-15.5% ?ELEVATED PLT: ? 253 ?140-509y2691/uL ? Retic: ?? 7.91 ?0.5-1.5% ? ELEVATED Differential ?Tested at: ??[facility] ?Absolute (%) ?Expected (%) ?(x10*9/L) ? (x10*9/L) Neutrophils: ?0.5 (31.3) ?1.7-7.0 (42-72%) ??DECREASED Lymphocytes: ?0.6 (37.5) ?0.9-2.9 (20-44%) ??DECREASED Monocytes: ?0.4 (25) ? <0.9 (0-11%) ? Blasts: ? 0.1 (6.3) ? 0 ??(0%) ? BLASTS 10/03/2023 8:51 AM CDT [facility] C[facility]AL LABORATORY Reticulocytes Retic: 7.91 0.5-1.5% ELEVATED 10/03/2023 8:51 AM T [facility] Bone Marrow Differential Blasts: ?23.6 ?0.2-1.5% ?ELEVATED Neutrophils & precursors: ??14.4 ?58.0-65.0% ?DECREASED Erythroid precursors: ?38 ?18.0-24.0% ?ELEVATED Lymphocytes: ? 21 ? 3.0-24.0% ? Monocytes: ? 2.2 ? 0.7-2.8% ? Plasma cells: ?0.8 ? 0.1-1.5% ? M:E Ratio: ? 14 : 38 10/03/2023 8:[address] [facility] Microscopic Description The final diagnosis is based on microscopic examination of an appropriately stained blood smear. SPECIMENS EXAMINED: Peripheral blood Aspirate direct and concentrate smears: ??Adequate Particle crush smears Touch imprints Clot section Bone core trephine sample (decalcified): ??Adequate, 1.6 cm Bone core and clot section color: ??[place] PERIPHERAL BLOOD: The peripheral smear features support [...] Ringed sideroblasts: Absent 10/03/2023 8:51 AM CDT [facility] Flow Cytometry Summary Diagnostic Acute [...] Trace positive markers: CD7/CD36 Negative markers: CD65/CD15/CD10/CD64 /KU342r/CD14/CD56/C D11b/CD16/CD2/CD5/C D235a/CD19/CD22(CYT O)/CD79a(CYTO)/TdT( n)/CD3(CYTO) Quality Assessment Viability (7-AAD): 62% Nucleated cells analyzed: 27238 Limit of detection (LOD): 0.1% These results and cytograms have been verified by Dr. Alfredo. This test was developed and its performance characteristics verified by [facility]. It has not been cleared or [...] 09/26/2023 3:50 PM 10/03/2023 8:51 AM CDT [facility] Cytogenetics Summary Cytogenetic testing has been ordered and will be reported separately. 10/03/2023 8:51 AM CDT [facility] Other Testing Immunostains were performed on the bone core biopsy. CD34 (blast marker) (manual morphometry: ??25% 10/03/2023 8:51 AM CDT [facility] Additional Information Interpreted at [facility] - [address] [place] [address] Immunohistochemistr y controls were reviewed and approved by the pathologist during this examination. 10/03/2023 8:51 AM CDT [facility] Bone Marrow (Bone Marrow Aspirate) [...] David Gordon MD LABORATORY Performing Organization Address City/State/[facility] Co de Phone Number [facility] [address] [place] [address], * PERIPHERAL BLD MORPHOLOGY (09/10/2023 10:34 AM CDT) Only the most recent of2 resultswithin the time period is included. Case Report Special Hematology Report ? Case: [id number] ? Authorizing Provider: ??David Gordon MD ?Collected: ? 09/10/2023 1034 ? Ordering Location: ? [facility] ?Received: ?09/10/20232124 ? Pathologist: ? Rolando Retana MD ? Specimen: ?Peripheral Blood ? 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 1-2% circulating blasts 2. Moderate microcytic hypochromic anemia with reticulocytosis (6.7%) 3. 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 Mild absolute monocytosis 5. See comment 09/12/2023 4:51 PM CDT [facility] EN[facility]AL LABORATORY Comment Since the last described peripheral blood morphology 08/06/2023 ([id number]), the blast count is roughly unchanged. The [...] also reviewed by Mari Armijo MT, MS ([facility]). 09/12/2023 4:51 PM CDT [facility] LAB[facility] Clinical Information The patient is a 60-year-old male. Pertinent clinical information: Anemia. Per EPIC: She visited the ER 08/23/2023 for an abscess and neutropenia. ??Additional history includes hypertension. His most recent peripheral blood morphology 08/06/2023 ([id number]) showed changes consistent with a myeloid neoplasm with 2% circulating blasts, moderate normocytic anemia, and leukopenia with marked absolute neutropenia with dysgranulopoiesis. 08/23/23 20:13 CREATININE: 1.25 (H) eGFR: ? 63 (L) 09/12/2023 4:51 PM CDT [facility] LABORATORY CBC and Differential HEMATOLOGY PARAMETERS Tested at: ??[facility] Laboratory ? RESULTS ??EXPECTED VALUES WBC: ? 3.3 ?4.5-27h8060/cumm ?DECREASED RBC: ? 3.65 ? 4.30-5.90 mil/cumm ??DECREASED HGB: ? 8.1 ?13.5-17.5 gm/di ? DECREASED HCT: ? 28.8 ? 37-53% ?DECREASED MCV: ? 79.0 ? 80-100 fl ? MICROCYTIC MCH: ? 22.0 ? 26-34 pg ?DECREASED MCHC: ?28.0 ? 32-36 gm/dl ? HYPOCHROMIC RDW: ? 20.3 ? 11.5-15.5% ?ELEVATED PLT: ? 310 ?140-530z9305/uL ? Retic: ?? 6.7 ?0.5-1.5% ?ELEVATED Differential ?Absolute (%) ?Expected (%) ?(x10*9/L) ? (x10*9/L) Neutrophils: ?1.4 (42.6) ?1.7-7.0 (42-72%) ??DECREASED Lymphocytes: ?0.4 (12.2) ?0.9-2.9 (20-44%) ??DECREASED Monocytes: ?1.2 (36.5) ? <0.9 (0-11%) ? ELEVATED Eosinophils: ?0.2 (6.1) ?<0.5 (0-2%) ? 09/12/2023 4:51 PM CDT [facility] Microscopic Description The final diagnosis is based on microscopic examination of an appropriately stained blood smear. 09/12/2023 4:51 PM CDT [facility] Additional Information Interpreted at [facility] Laboratory - [address] [facility] [address] [address] 09/12/2023 4:51 PM CDT [facility] Blood (Peripheral Blood) 09/10/2023 10:34 AM CDT 09/10/2023 9:25 PM CDT David Gordon MD [facility]OLOGY [facility] [address] [place] [address], * PATH TISSUE EXAM (08/29/2023 8:40 AM CDT) Case Report Pathology Report ?Case: [id number] ? Authorizing Provider: ??Eloina Paniagua MD ?Collected: ? 08/29/2023 0840 ? Ordering Location: ? [facility] ?Received: ?08/29/2023 1517 ? Pathologist: ? Georgie Rocha MD ? Specimen: ?Right Leg, Right leg chronic wound necrotic tissue ? 09/03/2023 3:31 PM CDT [facility] ENTRAL LABORATORY Final Diagnosis SKIN AND SOFT TISSUE, RIGHT LEG CHRONIC WOUND, EXCISION: 1. ??Ulcer bed with reactive epithelial hyperplasia, dense dermal mixed inflammatory infiltrate and prominent fibrosis 2. ??No evidence of vasculitis or malignancy right leg 09/03/2023 3:31 PM CDT [facility] EN[facility] LAB[facility] Clinical Information Right leg chronic wound necrotic tissue. 09/03/2023 3:31 PM CDT [facility] Gross Description A) Received [...] red-brown skeletal. No solid mass is identified. Business Operations Coordinator sections are submitted in 2 cassettes. TTP 08/29/2023 09/03/2023 3:31 PM CDT [facility] Microscopic Description The final diagnosis is based on microscopic examination of appropriate sections of all specimens. The presence of blue ink is confirmed on tissue sections. 09/03/2023 3:31 PM CDT [facility] Additional Information Interpreted at [facility] - [address] [facility] [address] [address] 09/03/2023 3:31 PM CDT [facility] Other (Right Leg) 08/29/2023 8:40 AM CDT 08/29/2023 3:17 PM CDT Eloina Paniagua MD PATHOLOGY/CYTOLOGY [facility] [address] [place] [address], * SCAN-CT INTERPRETATION (08/27/2023 12:00 AM CDT) [...] SEDIMENTATION RATE (08/23/2023 8:13 PM CDT) Pathologist [facility] SEDIMENTATION RATE 51(H) <20 mm/hr 2023 8:38 PM T [facility] Blood BLOOD SPECIMEN / Unknown IV Start / Unknown 08/23/2023 8:13 PM CDT 08/23/2023 8:16 PM CDT Elvira MICHELLE HEMATOLOGY [facility] [address] [place] [address] * (ABNORMAL) CBC WITH AUTO DIFFERENTIAL (08/23/2023 8:13 PM CDT) Only the most recent of2 resultswithin the time period is included. [facility] WHITE BLOOD COUNT 1.9(L) 4.5 - 11.0 thou/cu mm 08/23/2023 9:06 PM [facility] RED BLOOD COUNT 3.30(L) 4.30 - 5.90 mil/cu mm 08/23/2023 9:06 PM [facility] HEMOGLOBIN 7.4(L) 13.5 - 17.5 g/dL 08/23/2023 9:06 PM [facility] HEMATOCRIT 26.5(L) 37.0 - 53.0 % 08/23/2023 9:06 PM [facility] MCV 80 80 - 100 fL 08/23/2023 9:06 PM [facility] MCH 22.4(L) 26.0 - 34.0 pg 08/23/2023 9:06 PM [facility] MCHC 27.9(L) 32.0 - 36.0 g/dL 08/23/2023 9:06 PM [facility] RDW 19.3(H) 11.5 - 15.5 % 08/23/2023 9:06 PM [facility] PLATELET COUNT 272 140 - 440 thou/cu mm 08/23/2023 9:06 PM [facility] MPV 10.0 6.5 - 11.0 fL 08/23/2023 9:06 PM CDT [facility] Blood BLOOD SPECIMEN / Unknown IV Start / Unknown 08/23/2023 8:13 PM CDT 08/23/2023 8:16 PM CDT Elvira MICHELLE HEMATOLOGY [facility] [address] [place] [address] * (ABNORMAL) RED CELL MORPHOLOGY (08/23/2023 8:13 PM CDT) Only the most recent of2 resultswithin the time period is included. ELLIPTOCYTES Moderate 08/23/2023 9:06 PM CDT [facility] POLYCHROMASIA Moderate 08/23/2023 9:06 PM CDT [facility] RBC COMMENT Present(A) RBC morphology appears normal, RBC morphology within normal limits for newborns. 08/23/2023 9:06 PM CDT [facility] LARGE PLATELETS Present 9:06 PM CDT [facility] Blood BLOOD SPECIMEN / Unknown IV Start / Unknown 08/23/2023 8:13 PM CDT 08/23/2023 8:16 PM CDT Elvira MICHELLE HEMATOLOGY [facility] [address] [place] [address] * PLATELET ESTIMATE (08/23/2023 8:13 PM CDT) Only the most recent of2 resultswithin the time period is included. PLATELET ESTIMATE Adequate Adequate, No estimate 08/23/2023 9:06 PM CDT [facility] Blood BLOOD SPECIMEN / Unknown IV Start / Unknown 08/23/2023 8:13 PM CDT 08/23/2023 8:16 PM CDT Elvira MICHELLE HEMATOLOGY [facility] [address] [place] [address] * LACTATE VENOUS (08/23/2023 8:13 PM CDT) [facility] LACTATE,VENOUS 0.5 0.5 - 2.0 mmol/L 08/23/2023 8:40 PM CDT [facility] Blood BLOOD SPECIMEN / Unknown IV Start / Unknown 08/23/2023 8:13 PM CDT 08/23/2023 8:16 PM CDT Elvira MICHELLE CHEMISTRY Performing Organization Address [facility] Co de Phone Number [facility] [address] [place] [address] * (ABNORMAL) MANUAL DIFFERENTIAL (08/23/2023 8:13 PM CDT) Only the most recent of2 resultswithin the time period is included. [facility] % NEUTROPHILS 20.0 % 08/23/2023 9:06 PM [facility] % LYMPHOCYTES 48.0 % 08/23/2023 9:06 PM [facility] % MONOCYTES 31.0 % 08/23/2023 9:06 PM [facility] % EOSINOPHILS 1.0 % 08/23/2023 9:06 PM [facility] % BASOPHILS 0.0 % 08/23/2023 9:06 PM [facility] NEUTROPHILS ABSOLUTE 0.4(L) 1.7 - 7.0 thou/cu mm 08/23/2023 9:06 PM [facility] LYMPHOCYTES ABSOLUTE 0.9 0.9 - 2.9 thou/cu mm 08/23/2023 9:06 PM [facility] MONOCYTES ABSOLUTE 0.6 <0.9 thou/cu mm 08/23/2023 9:06 PM [facility] EOSINOPHILS ABSOLUTE 0.0 <0.5 thou/cu mm 08/23/2023 9:06 PM [facility] BASOPHILS ABSOLUTE 0.0 <0.3 thou/cu mm 08/23/2023 9:06 PM CDT [facility] Blood BLOOD SPECIMEN / Unknown IV Start / Unknown 08/23/2023 8:13 PM CDT 08/23/2023 8:16 PM CDT Elvira MICHELLE HEMATOLOGY Performing Organization Address [facility]/ZIP Co de Phone Number [facility] [address] [place] [address] * (ABNORMAL) C-REACTIVE PROTEIN (08/23/2023 8:13 PM CDT) Pathologist [facility] C-REACTIVE PROTEIN 2.8(H) <0.5 mg/dL 08/23/2023 8:41 PM CDT [facility] Blood BLOOD SPECIMEN / Unknown IV Start / Unknown 08/23/2023 8:13 PM CDT 08/23/2023 8:16 PM CDT Elvira MICHELLE CHEMISTRY Performing Organization Address [facility] Co de Phone Number [facility] [address] [place] [address] * (ABNORMAL) BASIC METABOLIC PANEL (08/23/2023 8:13 PM CDT) Only the most recent of2 resultswithin the time period is included. SODIUM 133(L) 136 - 145 mmol/L 08/23/2023 8:41 PM T [facility] POTASSIUM 4.0 3.5 - 5.1 mmol/L 08/23/2023 8:41 PM [facility] CHLORIDE 104 98 - 107 mmol/L 08/23/2023 8:41 PM T [facility] CO2,TOTAL 22 22 - 29 mmol/L 08/23/2023 8:41 PM [facility] ANION GAP 7 5 - 18 08/23/2023 8:41 PM [facility] GLUCOSE 80 70 - 99 mg/dL 08/23/2023 8:41 PM CDT [facility] CALCIUM 8.4(L) 8.8 - 10.2 mg/dL 08/23/2023 8:41 PM CDT [facility] BUN 14 8 - 23 mg/dL 08/23/2023 8:41 PM CDT [facility] CREATININE 1.25(H) 0.70 - 1.20 mg/dL 08/23/2023 8:41 PM CDT [facility] BUN/CREAT RATIO 11 10 - 20 8:41 PM CDT [facility] eGFR 63(L) >90 mL/min/1.7 3m2 08/23/2023 8:41 PM CDT [facility] Comment:As of 2021, eG [...] 08/23/2023 8:16 PM CDT Elvira MICHELLE CHEMISTRY [facility] [address] [id number] * (ABNORMAL) RETICULOCYTES (08/06/2023 9:54 AM CDT) RETIC% 5.4(H) 0.5 - 1.5 % 08/06/2023 10:16 PM CDT [facility] RETIC (ABSOLUTE) 0.21(H) 0.03 - 0.08 mil/cu mm 08/06/2023 10:16 PM CDT [facility] Blood BLOOD SPECIMEN / Unknown Venipuncture / Unknown 08/06/2023 9:54 AM CDT 08/06/2023 9:54 AM CDT Narrative [facility] - 08/06/2023 10:16 PM CDT This procedure was originally ordered at [facility]. Lizeth Alarcon NP HEMATOLOGY Performing Organization Address City/[facility]/ZIP Co de Phone Number [facility] [address] [place] [address], * (ABNORMAL) HEPATIC FUNCTION PANEL (08/06/2023 9:54 AM CDT) ALBUMIN 3.1(L) 4.0 - 4.9 g/dL 08/06/2023 10:19 AM T [facility] PROTEIN,TOTAL 9.5(H) 6.0 - 8.0 g/dL 08/06/2023 10:19 AM [facility] BILIRUBIN,TOTAL 0.6 0.0 - 1.2 mg/dL 08/06/2023 10:19 AM [facility] BILIRUBIN,DIRECT <0.2 0.0 - 0.3 mg/dL 08/06/2023 10:19 AM [facility] BILIRUBIN,INDIRE CT 08/06/2023 10:19 AM [facility] Comment:Unable to calculate, Direct Bili <0.2 ALK PHOSPHATASE 87 40 - 129 IU/L 08/06/2023 10:19 AM [facility] ALT (SGPT) 9(L) 10 - 50 IU/L 08/06/2023 10:19 AM [facility] AST (SGOT) 39 10 - 50 IU/L 08/06/2023 10:19 AM [facility] Blood BLOOD SPECIMEN / Unknown Venipuncture / Unknown 08/06/2023 9:54 AM CDT 08/06/2023 9:54 AM CDT Lizeth Alarcon NP CHEMISTRY Performing Organization Address City/[facility]/ZIP Co de Phone Number [facility] [address] [place] [address] * CT CHEST ABDOMEN PELVIS WO (01/03/2023 [...] 12:[address] [facility] ES[facility]ERIC TESTING ([facility]) Blood BLOOD SPECIMEN / Unknown Venipuncture / Unknown 10/09/2022 9:06 AM CDT 10/09/2022 9:06 AM CDT Narrative [facility] ([facility]) - 10/11/2022 12:08 PM CDT Performed at: ??01 - [facility] [place], [place] [id number] Market Research Associate: Zane Rebolledo MD, Phone: ??[phone] Radha Edouard MD LABORATORY [facility] ([facility]) [address] [place] [address], [place] * CT CHEST ABDOMEN PELVIS W [...] - 199 mg/dL 09/09/2022 12:53 PM CDT [facility] TRIGLYCERIDES 77 <150 mg/dL 09/09/2022 12:53 PM CDT [facility] HDL CHOLESTEROL 34(L) >40 mg/dL 12:53 PM T [facility] NON-HDL CHOLESTEROL 115 <145 mg/dl 09/09/2022 12:53 PM T [facility] CHOL/HDL RATIO 4.38 <4.50 09/09/2022 12:53 PM T [facility] LDL CHOLESTEROL 100 <=130 mg/dL 09/09/2022 12:53 PM T [facility] VLDL CHOLESTEROL 15 <=30 mg/dL 09/09/2022 12:53 PM T [facility] PROVIDER ORDERED STATUS RANDOM 09/09/2022 12:53 PM T [facility] Blood BLOOD SPECIMEN / Unknown Butterfly / Unknown 09/09/2022 12:06 PM CDT 09/09/2022 12:07 PM CDT David Ambrocio MD CHEMISTRY [facility] [address] [place] [address] from Last 3 Months or Most Recently [...] Status Discussion: Reviewed Preferences wit Care Teams Insurance Representative Relationship Specialty Start Date End Date David Ambrocio MD [address] [place] [address] PCP - General Family Practice 11/27/22 Elvira Morin RN 200 [facility] [place] [address] Nurse Navigator - Oncology Registered Nurse 10/18/22 Radha Edouard MD [address] [facility] [place] [address] Medical Oncologist Hematology and Oncology 11/21/22 Lizeth Alarcon, CORPORATE COMMUNICATIONS MANAGER [address] [place] [address] Nurse Practitioner Hematology and Oncology 11/21/22 [place], KYUNG Hong [address] [place] [address] [employer] Professor 01/06/23 [id number] [address] 01/21/23
== END 2023-10-14 11:23 | disposition home or self-care (01) ==
LOC: WOUND 11:22
PROVIDERS: PCP Internal Medicine; Visit Provider Nurse Practitioner Family
DX: I87.311 Chronic venous hypertension (idiopathic) with ulcer of right lower extremity (principal); L97.212 Non-pressure chronic ulcer of right calf with fat layer exposed; Z72.0 Tobacco use
CPT/HCPCS: 11042; 11045

== ENCOUNTER 2023-10-21 14:37 | Outpatient (CLI) | payer MEDICARE, BC, SELFPAY ==
--- OUTSIDE RECORDS SUMMARY | 2023-10-21 14:39 | XMS_ITS | Clinical Summary ---
Author Organization [facility] Address [place], [place] [address] Care Team Providers Care Physical Science Aide Name Role Phone Elvira Morin Stefano RN Unavailable Radha Edouard MD Unavailable Lizeth Alarcon SHOE DRESSER Unavailable David Ambrocio MD Primary Care Provider [phone] Jaylon RaymondW Unavailable [phone] [facility] Un[facility] Allergies Active Allergy Reactions Criticality [...] Department Care Team Description 09/25/2023 Lab Requisition [facility] [phone] David Gordon MD 09/10/2023 Lab Requisition [facility] [phone] David Gordon MD 08/29/2023 Lab Requisition [facility] [phone] Eloina Paniagua MD 08/27/2023 Orders Only [facility] Scanner 1 scan: (1-Ord) [place], LOWER LEG RT W/COM, 08/27/2023 08/23/2023 7:26 PM CDT - 08/23/2023 11:10 PM CDT Emergency [facility] [address] [place] [address] Elvira Thayer PA Abscess of right lower extremity (Primary Dx); Neutropenia, unspecified type (HC) Discharge Disposition: Home Self Care 08/23/2023 Travel 08/12/2023 11:00 AM CDT Office Visit [facility] [address] [place] [phone] Radha Edouard MD Follow Up (Pancytopenia (HC) [D61.818]//) 08/12/2023 Travel 08/06/2023 9:47 AM CDT - 08/06/2023 11:59 PM CDT Hospital Encounter [facility] [address] [place] [place] [address] Pancytopenia (HC) [D61.818] 08/06/2023 Travel 07/22/2023 10:15 AM CDT Office Visit [facility] [place] [address] [facility] [address] [place] [place] [phone] Faraz Henson R, DPM Consult (Bilateral foot [...] Info) Description 11/12/2023 9:00 AM CDT Appointment [facility] [address] [place] [address] 11/19/2023 11:15 AM CDT Office Visit [facility] [address] [place] [phone] Lizeth Alarcon, SHOE DRESSER [address] [place] [address] Health Maintenance Due Date Last Done Comments [...] CDT David Gordon MD LAB BILL ONLY [facility] [address] [place] [address], * MYELOID NGS (LAB ONLY) (09/25/2023 9:10 AM CDT) Bone Marrow (Bone Marrow Aspirate) 09/25/2023 9:10 AM CDT 09/26/2023 3:40 PM CDT David Gordon MD PATHOLOGY/CYTOLOGY Performing Organization Address City/[facility] Co de Phone Number [facility] [address] [place] [phone], [place] * BM/LB CHROM (09/25/2023 9:10 AM CDT) Bone Marrow (Bone Marrow Aspirate) 09/25/2023 9:10 AM CDT 09/26/2023 2:58 PM CDT David Gordon MD LABORATORY Performing Organization Address [facility] Co de Phone Number [facility] [address] [place] [address], [place] * BM WETLAB (09/25/2023 9:10 AM CDT) Bone Marrow (Bone Marrow Aspirate) 09/25/2023 9:10 AM CDT 09/26/2023 2:58 PM CDT David Gordon MD LABORATORY Performing Organization Address [facility] de Phone Number [facility] [address] [place] [address], [place] * OC (09/25/2023 9:10 AM CDT) Bone Marrow (Bone Marrow Aspirate) 09/25/2023 9:10 AM CDT 09/26/2023 2:58 PM CDT David Gordon MD LABORATORY Performing Organization Address [facility] de Phone Number [facility] [address] [place] [phone], [place] * OB (09/25/2023 9:10 AM CDT) Bone Marrow (Bone Marrow Aspirate) 09/25/2023 9:10 AM CDT 09/26/2023 2:58 PM CDT David Gordon MD LABORATORY Performing Organization Address [facility] Co de Phone Number [facility] [address] [place] [phone], [place] * CHROM TECH 2 (09/25/2023 9:10 AM CDT) Bone Marrow (Bone Marrow Aspirate) 09/25/2023 9:10 AM CDT 09/26/2023 2:58 PM CDT David Gordon MD LABORATORY Performing Organization Address [facility] Co de Phone Number [facility] [address] [address], [place] * CHROM TECH 1 (09/25/2023 9:10 AM CDT) Bone Marrow (Bone Marrow Aspirate) 09/25/2023 9:10 AM CDT 09/26/2023 2:58 PM CDT David Gordon MD LABORATORY Performing Organization Address [facility] Co de Phone Number [facility] [address] [place] [address], [place] * BONE MARROW DIFFERENTIAL (09/25/2023 9:10 AM CDT) Bone Marrow (Bone Marrow Aspirate) 09/25/2023 9:10 AM CDT 09/29/2023 7:59 AM CDT David Gordon MD LABORATORY Performing Organization Address [facility] de Phone Number [facility] [address] [place] [address], [place] * CYTOGENETIC BONE MARROW STUDIES (09/25/2023 9:10 AM CDT) RFR Acute Myeloid Leukemia, myeloid neoplasm. 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 See comments. 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 ??Trisomy 8 is classified as an intermediate prognostic risk stratification category in AML (NCCN, 2024). Clinicopathologic correlation of these results is recommended. 10/02/2023 12:17 PM CDT [facility] COMMENTS A preliminary chromosome result was provided to Manny Alfredo MD on 09/29/2023. 10/02/2023 12:17 PM CDT [facility] LAB TEST DETAILS Fully Analyzed Metaphases: ??20 Partially Analyzed Metaphases: ??0 Full Karyotypes: ??3 10/02/2023 12:17 PM CDT [facility] SOURCE Bone Marrow (NaHep) [id number] B1-2 10/02/2023 12:17 PM CDT [facility] METHODS Cultures used in chromosome analysis were non-stimulated. Chromosome analysis is performed on consecutive analyzable G-banded metaphases. 10/02/2023 12:17 PM CDT [facility] REFERENCES National Comprehensive Cancer Network. (2023). Acute Myeloid Leukemia (version 3.2023). Retrieved from https://www.nccn.o rg/professionals/p hysician_gls/pdf/a ml.pdf. Kenia Germain., Alexei Dominguez, Gurjit Pillai., Rachell Kebede., Alivia Nesbitt., Sravani Fortune., Isai Wilson. (Eds): WHO Classification of Tumours of Haematopoietic and Lymphoid Tissues. (Revised 4th edition) IARC: Michael 2017. 10/02/2023 12:17 PM CDT [facility] DISCLAIMER This test was developed and its performance characteristics determined by the [facility]. It has not been [...] clinical laboratory testing. 10/02/2023 12:17 PM CDT [facility] LABORATORY Bone Marrow (Bone Marrow Aspirate) 09/25/2023 9:10 AM CDT 09/26/2023 2:58 PM CDT David Gordon MD LABORATORY [facility] [address] [place] [address], * BONE MARROW STUDY (09/25/2023 9:10 AM CDT) Case Report Bone Marrow Pathology Report ?Case: [id number] ? Authorizing Provider: ??David Gordon MD ?Collected: ? 09/25/2023 0910 ? Ordering Location: ? [facility] ?Received: ?09/26/2023 0625 ? Pathologist: ? Manny Alfredo MD ? Specimens: ?? A) - Bone Marrow Aspirate ? B) - Bone Marrow Aspirate (Heparinized) ? C) - Bone Marrow Core Biopsy ? D) - Peripheral Blood ? 10/03/2023 8:51 AM T [facility] LAB[facility]AT[facility] Amendment 10/03/2023 - Amendment to report [facility] Myeloid Targeted Next Generation Sequencing (NGS) results. Please see diagnosis and attached scanned report. Results are communicated with Dr. Edouard via Secure Chat on 10/03/[address] Alfredo. 10/03/2023 8:51 AM T [facility]AT[facility] Final Diagnosis BONE [...] see attached report 10/03/2023 8:[address] [facility] Amendment electronically signed by Manny Alfredo [...] defining cytogenetic abnormality.) 10/03/2023 8:[address] [facility] Clinical Information Mr. Alba is a 68 y.o. 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 A bone marrow biopsy is performed for further characterization. 10/03/2023 8:[address] [facility] PROCEDURE A RIGHT lateral bone marrow biopsy and unilateral aspiration procedure is performed at [facility] on 09/25/23. VIVIANA Monterroso performed the procedure using an 8 gauge manual needle. The ordering physicians are Drs. Gordon and Silke. The specimen is inked orange. EVM 09/26/2023 10/03/2023 8:[address] [facility] CBC and Differential HEMATOLOGY PARAMETERS Tested at: ??[facility] ? RESULTS ??EXPECTED VALUES WBC: ? 1.6 ?4.5-79f8403/cumm ?DECREASED RBC: ? 3.8 ?4.30-5.90 mil/cumm ??DECREASED HGB: ? 8.5 ?13.5-17.5 gm/di ? DECREASED HCT: ? 30.7 ? 37-53% ?DECREASED MCV: ? 81.0 ? 80-100 fl ? NORMOCYTIC MCH: ? 23.0 ? 26-34 pg ?DECREASED MCHC: ?28.0 ? 32-36 gm/dl ? HYPOCHROMIC RDW: ? 22.5 ? 11.5-15.5% ?ELEVATED PLT: ? 253 ?140-222e6721/uL ? Retic: ?? 7.91 ?0.5-1.5% ? ELEVATED Differential ?Tested at: ??[facility] ?Absolute (%) ?Expected (%) ?(x10*9/L) ? (x10*9/L) Neutrophils: ?0.5 (31.3) ?1.7-7.0 (42-72%) ??DECREASED Lymphocytes: ?0.6 (37.5) ?0.9-2.9 (20-44%) ??DECREASED Monocytes: ?0.4 (25) ? <0.9 (0-11%) ? Blasts: ? 0.1 (6.3) ? 0 ??(0%) ? BLASTS 10/03/2023 8:51 AM CDT [facility] Reticulocytes Retic: 7.91 0.5-1.5% ELEVATED 10/03/2023 8:51 AM T [facility] Bone Marrow Differential Blasts: ?23.6 ?0.2-1.5% ?ELEVATED Neutrophils & precursors: ??14.4 ?58.0-65.0% ?DECREASED Erythroid precursors: ?38 ?18.0-24.0% ?ELEVATED Lymphocytes: ? 21 ? 3.0-24.0% ? Monocytes: ? 2.2 ? 0.7-2.8% ? Plasma cells: ?0.8 ? 0.1-1.5% ? M:E Ratio: ? 14 : 38 10/03/2023 8:[address] [facility] Microscopic Description The final diagnosis is based on microscopic examination of an appropriately stained blood smear. SPECIMENS EXAMINED: Peripheral blood Aspirate direct and concentrate smears: ??Adequate Particle crush smears Touch imprints Clot section Bone core trephine sample (decalcified): ??Adequate, 1.6 cm Bone core and clot section color: ??[place]berg PERIPHERAL BLOOD: The peripheral smear features support [...] Ringed sideroblasts: Absent 10/03/2023 8:51 AM CDT [facility] Flow Cytometry Summary Diagnostic Acute [...] Trace positive markers: CD7/CD36 Negative markers: CD65/CD15/CD10/CD64 /LE801o/CD14/CD56/C D11b/CD16/CD2/CD5/C D235a/CD19/CD22(CYT O)/CD79a(CYTO)/TdT( n)/CD3(CYTO) Quality Assessment Viability (7-AAD): 62% Nucleated cells analyzed: 18296 Limit of detection (LOD): 0.1% These results and cytograms have been verified by Dr. lAfredo. This test was developed and its performance characteristics verified by [facility]. It has not been cleared or approved [...] 09/26/2023 3:50 PM 10/03/2023 8:51 AM CDT [facility] Cytogenetics Summary Cytogenetic testing has been ordered and will be reported separately. 10/03/2023 8:51 AM CDT [facility] Other Testing Immunostains were performed on the bone core biopsy. CD34 (blast marker) (manual morphometry: ??25% 10/03/2023 8:51 AM CDT [facility] Additional Information Interpreted at [facility] - [address] [place] [id number] Immunohistochemistr y controls were reviewed and approved by the pathologist during this examination. 10/03/2023 8:51 AM CDT [facility] Bone Marrow (Bone Marrow Aspirate) 09/25/2023 [...] Gordon MD LABORATORY Performing Organization Address City/State/[facility] Co de Phone Number [facility] [address] [place] [address], * PERIPHERAL BLD MORPHOLOGY (09/10/2023 10:34 AM CDT) Only the most recent of2 resultswithin the time period is included. Case Report Special Hematology Report ? Case: [id number] ? Authorizing Provider: ??David Gordon MD ?Collected: ? 09/10/2023 1034 ? Ordering Location: ? [facility] ?Received: ?09/10/20232124 ? Pathologist: ? Rolando Retana MD ? Specimen: ?Peripheral Blood ? 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 1-2% circulating blasts 2. Moderate microcytic hypochromic anemia with reticulocytosis (6.7%) 3. 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 Mild absolute monocytosis 5. See comment 09/12/2023 4:51 PM CDT [facility] Comment Since the last described peripheral blood morphology 08/06/2023 ([id number]), the blast count is roughly unchanged. The [...] also reviewed by Mari Armijo MT, MS ([facility]). 09/12/2023 4:51 PM CDT [facility] LABORATORY Clinical Information The patient is a 60-year-old male. Pertinent clinical information: Anemia. Per EPIC: She visited the ER 08/23/2023 for an abscess and neutropenia. ??Additional history includes hypertension. His most recent peripheral blood morphology 08/06/2023 ([id number]) showed changes consistent with a myeloid neoplasm with 2% circulating blasts, moderate normocytic anemia, and leukopenia with marked absolute neutropenia with dysgranulopoiesis. 08/23/23 20:13 CREATININE: 1.25 (H) eGFR: ? 63 (L) 09/12/2023 4:51 PM CDT [facility]AL LABORATORY CBC and Differential HEMATOLOGY PARAMETERS Tested at: ??[facility] Laboratory ? RESULTS ??EXPECTED VALUES WBC: ? 3.3 ?4.5-81o4861/cumm ?DECREASED RBC: ? 3.65 ? 4.30-5.90 mil/cumm ??DECREASED HGB: ? 8.1 ?13.5-17.5 gm/di ? DECREASED HCT: ? 28.8 ? 37-53% ?DECREASED MCV: ? 79.0 ? 80-100 fl ? MICROCYTIC MCH: ? 22.0 ? 26-34 pg ?DECREASED MCHC: ?28.0 ? 32-36 gm/dl ? HYPOCHROMIC RDW: ? 20.3 ? 11.5-15.5% ?ELEVATED PLT: ? 310 ?140-441t3042/uL ? Retic: ?? 6.7 ?0.5-1.5% ?ELEVATED Differential ?Absolute (%) ?Expected (%) ?(x10*9/L) ? (x10*9/L) Neutrophils: ?1.4 (42.6) ?1.7-7.0 (42-72%) ??DECREASED Lymphocytes: ?0.4 (12.2) ?0.9-2.9 (20-44%) ??DECREASED Monocytes: ?1.2 (36.5) ? <0.9 (0-11%) ? ELEVATED Eosinophils: ?0.2 (6.1) ?<0.5 (0-2%) ? 09/12/2023 4:51 PM CDT [facility] Microscopic Description The final diagnosis is based on microscopic examination of an appropriately stained blood smear. 09/12/2023 4:51 PM CDT [facility] Additional Information Interpreted at [facility] - [address] [facility] [address] [address] 09/12/2023 4:51 PM CDT [facility] Blood (Peripheral Blood) 09/10/2023 10:34 AM CDT 09/10/2023 9:25 PM CDT David Gordon MD HEMATOLOGY [facility] [address] [place] [address], * PATH TISSUE EXAM (08/29/2023 8:40 AM CDT) Case Report Pathology Report ?Case: [id number] ? Authorizing Provider: ??Eloina Paniagua MD ?Collected: ? 08/29/2023 0840 ? Ordering Location: ? [facility] ?Received: ?08/29/2023 1517 ? Pathologist: ? Georgie Rocha MD ? Specimen: ?Right Leg, Right leg chronic wound necrotic tissue ? 09/03/2023 3:31 PM CDT [facility] EN[facility] LAB[facility]AT[facility] Final Diagnosis SKIN AND SOFT TISSUE, RIGHT LEG CHRONIC WOUND, EXCISION: 1. ??Ulcer bed with reactive epithelial hyperplasia, dense dermal mixed inflammatory infiltrate and prominent fibrosis 2. ??No evidence of vasculitis or malignancy right leg 09/03/2023 3:31 PM CDT [facility] Clinical Information Right leg chronic wound necrotic tissue. 09/03/2023 3:31 PM CDT [facility] Gross Description A) Received [...] red-brown skeletal. No solid mass is identified. Marbleizer sections are submitted in 2 cassettes. TTP 08/29/2023 09/03/2023 3:31 PM CDT [facility] Microscopic Description The final diagnosis is based on microscopic examination of appropriate sections of all specimens. The presence of blue ink is confirmed on tissue sections. 09/03/2023 3:31 PM CDT [facility] Additional Information Interpreted at [facility] - [address] [facility] [address] [address] 09/03/2023 3:31 PM CDT [facility] Other (Right Leg) 08/29/2023 8:40 AM CDT 08/29/2023 3:17 PM CDT Eloina Paniagua MD PATHOLOGY/CYTOLOGY [facility] [address] [place] [address], * SCAN-CT INTERPRETATION (08/27/2023 12:00 AM CDT) [...] RATE (08/23/2023 8:13 PM CDT) Pathologist [facility] SEDIMENTATION RATE 51(H) <20 mm/hr 2023 8:38 PM T [facility] Blood BLOOD SPECIMEN / Unknown IV Start / Unknown 08/23/2023 8:13 PM CDT 08/23/2023 8:16 PM CDT Elvira MICHELLE HEMATOLOGY [facility] [address] [place] [address] * (ABNORMAL) CBC WITH AUTO DIFFERENTIAL (08/23/2023 8:13 PM CDT) Only the most recent of2 resultswithin the time period is included. [facility] WHITE BLOOD COUNT 1.9(L) 4.5 - [...] - 440 thou/cu mm 08/23/2023 9:06 PM [facility] MPV 10.0 6.5 - 11.0 fL 08/23/2023 9:06 PM CDT [facility] Blood BLOOD SPECIMEN / Unknown IV Start / Unknown 08/23/2023 8:13 PM CDT 08/23/2023 8:16 PM CDT Elvira MICHELLE HEMATOLOGY [facility] [address] [place] [address] * (ABNORMAL) RED CELL MORPHOLOGY (08/23/2023 8:13 PM CDT) Only the most recent of2 resultswithin the time period is included. ELLIPTOCYTES Moderate 08/23/2023 9:06 PM CDT [facility] POLYCHROMASIA Moderate 08/23/2023 9:06 PM CDT [facility] RBC COMMENT Present(A) RBC morphology appears normal, RBC morphology within normal limits for newborns. 08/23/2023 9:06 PM CDT [facility] LARGE PLATELETS Present 9:06 PM CDT [facility] Blood BLOOD SPECIMEN / Unknown IV Start / Unknown 08/23/2023 8:13 PM CDT 08/23/2023 8:16 PM CDT Elvira MICHELLE HEMATOLOGY [facility] [address] [place] [address] * PLATELET ESTIMATE (08/23/2023 8:13 PM CDT) Only the most recent of2 resultswithin the time period is included. PLATELET ESTIMATE Adequate Adequate, No estimate 08/23/2023 9:06 PM CDT [facility] Blood BLOOD SPECIMEN / Unknown IV Start / Unknown 08/23/2023 8:13 PM CDT 08/23/2023 8:16 PM CDT Elvira MICHELLE HEMATOLOGY [facility] [address] [place] [address] * LACTATE VENOUS (08/23/2023 8:13 PM CDT) [facility] LACTATE,VENOUS 0.5 0.5 - 2.0 mmol/L 08/23/2023 8:40 PM CDT [facility] Blood BLOOD SPECIMEN / Unknown IV Start / Unknown 08/23/2023 8:13 PM CDT 08/23/2023 8:16 PM CDT Elvira MICHELLE CHEMISTRY Performing Organization Address [facility] Co de Phone Number [facility] [address] [place] [address] * (ABNORMAL) MANUAL DIFFERENTIAL (08/23/2023 8:13 PM CDT) Only the most recent of2 resultswithin the time period is included. [facility] % NEUTROPHILS 20.0 % 08/23/2023 9:06 [...] <0.3 thou/cu mm 08/23/2023 9:06 PM CDT [facility] Blood BLOOD SPECIMEN / Unknown IV Start / Unknown 08/23/2023 8:13 PM CDT 08/23/2023 8:16 PM CDT Elvira MICHELLE HEMATOLOGY Performing Organization Address [facility]/ZIP Co de Phone Number [facility] [address] [place] [address] * (ABNORMAL) C-REACTIVE PROTEIN (08/23/2023 8:13 PM CDT) Pathologist [facility] C-REACTIVE PROTEIN 2.8(H) <0.5 mg/dL 08/23/2023 8:41 PM CDT [facility] Blood BLOOD SPECIMEN / Unknown IV Start / Unknown 08/23/2023 8:13 PM CDT 08/23/2023 8:16 PM CDT Elvira MICHELLE CHEMISTRY Performing Organization Address [facility] Co de Phone Number [facility] [address] [place] [address] * (ABNORMAL) BASIC METABOLIC PANEL (08/23/2023 8:13 PM CDT) Only the most recent of2 resultswithin the time period is included. SODIUM 133(L) 136 - 145 mmol/L 08/23/2023 8:41 PM T [facility] POTASSIUM 4.0 3.5 - 5.1 mmol/L 08/23/2023 8:41 PM [facility] CHLORIDE 104 98 - 107 mmol/L 08/23/2023 8:41 PM T [facility] CO2,TOTAL 22 22 - 29 mmol/L 08/23/2023 8:41 PM [facility] ANION GAP 7 5 - 18 08/23/2023 8:41 PM [facility] GLUCOSE 80 70 - 99 mg/dL 08/23/2023 8:41 PM CDT [facility] CALCIUM 8.4(L) 8.8 - 10.2 mg/dL 08/23/2023 8:41 PM CDT [facility] BUN 14 8 - 23 mg/dL 08/23/2023 8:41 PM CDT [facility] CREATININE 1.25(H) 0.70 - 1.20 mg/dL 08/23/2023 8:41 PM CDT [facility] BUN/CREAT RATIO 11 10 - 20 8:41 PM CDT [facility] eGFR 63(L) >90 mL/min/1.7 3m2 08/23/2023 8:41 PM CDT [facility] Comment:As of 2021, eG FR [...] 08/23/2023 8:16 PM CDT Elvira MICHELLE CHEMISTRY [facility] [address] [id number] * (ABNORMAL) RETICULOCYTES (08/06/2023 9:54 AM CDT) RETIC% 5.4(H) 0.5 - 1.5 % 08/06/2023 10:16 PM CDT [facility] TRAL LABORATORY RETIC (ABSOLUTE) 0.21(H) 0.03 - 0.08 mil/cu mm 08/06/2023 10:16 PM CDT [facility] TR[facility]OR[facility]ORY Blood BLOOD SPECIMEN / Unknown Venipuncture / Unknown 08/06/2023 9:54 AM CDT 08/06/2023 9:54 AM CDT Narrative [facility] - 08/06/2023 10:16 PM CDT This procedure was originally ordered at [facility] [place] [facility] Lzieth Alarcon NP HEMATOLOGY Performing Organization Address City/[facility]/ZIP Co de Phone Number [facility] [address] [place] [address], * (ABNORMAL) HEPATIC FUNCTION PANEL (08/06/2023 9:54 AM CDT) ALBUMIN 3.1(L) 4.0 - 4.9 g/dL 08/06/2023 10:19 AM T [facility] PROTEIN,TOTAL 9.5(H) 6.0 - 8.0 g/dL 08/06/2023 10:19 AM [facility] BILIRUBIN,TOTAL 0.6 0.0 - 1.2 mg/dL 08/06/2023 10:19 AM [facility] BILIRUBIN,DIRECT <0.2 0.0 - 0.3 mg/dL 08/06/2023 10:19 AM [facility] BILIRUBIN,INDIRE CT 08/06/2023 10:19 AM [facility] Comment:Unable to calculate, Direct Bili <0.2 ALK PHOSPHATASE 87 40 - 129 IU/L 08/06/2023 10:19 AM [facility] ALT (SGPT) 9(L) 10 - 50 IU/L 08/06/2023 10:19 AM [facility] AST (SGOT) 39 10 - 50 IU/L 08/06/2023 10:19 AM [facility] Blood BLOOD SPECIMEN / Unknown Venipuncture / Unknown 08/06/2023 9:54 AM CDT 08/06/2023 9:54 AM CDT Lizeth Alarcon NP CHEMISTRY Performing Organization Address City/[facility]/ZIP Co de Phone Number [facility] [address] [place] [address] * CT CHEST ABDOMEN PELVIS WO (01/03/2023 [...] Non Reactive 10/11/2022 12:08 PM CDT [facility] ([facility]) Blood BLOOD SPECIMEN / Unknown Venipuncture / Unknown 10/09/2022 9:06 AM CDT 10/09/2022 9:06 AM CDT Narrative [facility] ([facility]) - 10/11/2022 12:08 PM CDT Performed at: ??01 - [facility] [place], [place] ??[id number] Medical Language Specialist: Zane Rebolledo MD, Phone: ??[phone] Radha Edouard MD LABORATORY [facility] ([facility]) [address] [place] [address], [place] * CT CHEST ABDOMEN PELVIS W [...] - 199 mg/dL 09/09/2022 12:53 PM CDT [facility] TRIGLYCERIDES 77 <150 mg/dL 09/09/2022 12:53 PM CDT [facility] HDL CHOLESTEROL 34(L) >40 mg/dL 12:53 PM T [facility] NON-HDL CHOLESTEROL 115 <145 mg/dl 09/09/2022 12:53 PM T [facility] CHOL/HDL RATIO 4.38 <4.50 09/09/2022 12:53 PM T [facility] LDL CHOLESTEROL 100 <=130 mg/dL 09/09/2022 12:53 PM T [facility] VLDL CHOLESTEROL 15 <=30 mg/dL 09/09/2022 12:53 PM T [facility] PROVIDER ORDERED STATUS RANDOM 09/09/2022 12:53 PM T [facility] Blood BLOOD SPECIMEN / Unknown Butterfly / Unknown 09/09/2022 12:06 PM CDT 09/09/2022 12:07 PM CDT David Ambrocio MD CHEMISTRY [facility] [address] [place] [address] from Last 3 Months or Most Recently [...] Status Discussion: Reviewed Preferences wit Care Teams Physical Science Aide Relationship Specialty Start Date End Date David Ambrocio MD [address] [place] [address] PCP - General Family Practice 11/27/22 Elvira Morin RN 200 [facility] [place] [address] Nurse Navigator - Oncology Registered Nurse 10/18/22 Radha Edouard MD [address] [facility] [place] [address] Medical Oncologist Hematology and Oncology 11/21/22 Lizeth Alarcon, SHOE DRESSER [address] [place] [address] Nurse Practitioner Hematology and Oncology 11/21/22 [place], [place] Hong [address] [place] [address] Curator Of Collections 01/06/23 [place] [id number] [address] 01/21/23
== END 2023-10-21 14:38 | disposition home or self-care (01) ==
LOC: WOUND 14:38
PROVIDERS: PCP Internal Medicine; Visit Provider Nurse Practitioner Family
DX: I87.311 Chronic venous hypertension (idiopathic) with ulcer of right lower extremity (principal); L97.212 Non-pressure chronic ulcer of right calf with fat layer exposed
CPT/HCPCS: 11042; 11045

== ENCOUNTER 2023-10-28 14:47 | Outpatient (CLI) | payer MEDICARE, BC, SELFPAY ==
--- OUTSIDE RECORDS SUMMARY | 2023-10-28 14:50 | XMS_ITS | Clinical Summary ---
Author Organization [facility] Address [place], [place] [address] Care Team Providers Care Project Coach Name Role Phone Elvira Morin Stefano RN Unavailable Radha Edouard MD Unavailable [phone] Lizeth Alarcon SIGN BUILDER Unavailable David Ambrocio MD Primary Care Provider Jaylon RaymondW Unavailable [phone] [facility] Unavailable Allergies Active Allergy Reactions Criticality [...] Encounters Date Type Department Care Team Description 10/28/2023 Orders Only [facility] Scanner 1 scan: (1-Ord) INCOMING RECORDS-LABS, [facility], 10/28/2023 10/27/2023 Telephone [facility] [address] [place] [address] [facility] Referral (AML) 09/25/2023 Lab Requisition [facility] [phone] David Gordon MD 09/10/2023 Lab Requisition [facility] [phone] David Gordon MD 08/29/2023 Lab Requisition [facility] [phone] Eloina Paniagua MD 08/27/2023 Orders Only [facility] Scanner 1 scan: (1-Ord) EULESS, LOWER LEG RT W/COM, 08/27/2023 08/23/2023 7:26 PM CDT - 08/23/2023 11:10 PM CDT Emergency [facility] [address] [place] [address] Elvira Thayer PA Abscess of right lower extremity (Primary Dx); Neutropenia, unspecified type (HC) Discharge Disposition: Home Self Care 08/23/2023 Travel 08/12/2023 11:00 AM CDT Office Visit [facility] [address] [facility] [place] [address] Radha Edouard MD Follow Up (Pancytopenia (HC) [D61.818]//) 08/12/2023 Travel 08/06/2023 9:47 AM CDT - 08/06/2023 11:59 PM CDT Hospital Encounter [facility] [address] [place] [address] Pancytopenia (HC) [D61.818] 08/06/2023 Travel from Last 3 Months Immunizations Name [...] Date Smoking Tobacco: Every Day Cigarettes 1 55.6 Started: 1968 Passive Smoke Exposure: Current Smokeless [...] Info) Description 11/12/2023 9:00 AM CDT Appointment [facility] [address] [place] [address] 11/19/2023 11:15 AM CDT Office Visit [facility] [address] [place] [phone] Lizeth Alarcon, SIGN BUILDER [address] [place] [address] Health Maintenance Due Date Last Done Comments Pneumococcal series for age 65+ (1 of 2 - PCV) 1961 Colonoscopy through age 75 2000 Zoster (shingles) series for age 50+ (1 of 2) 2005 Medicare Wellness for age 65+ 2020 COVID-19 vaccine series ( - season) 2022 Depression screening for age 12+ [...] Procedure Name Priority Date/Time Associated Diagnosis Comments SCAN CORRESP-LABORATORY RESULTS 10/28/2023 12:00 AM CDT LAB TRACKING EVENT Routine 09/25/2023 12 :00 [...] Recently Relevant to Health Maintenance Results * SCAN CORRESP-LABORATORY RESULTS (10/28/2023 12:00 AM CDT) Scanner OTHER * LAB TRACKING EVENT (09/25/2023 12:00 PM CDT) Only the most recent of3 resultswithin the time period is included. Other (Other) Client Collect / Unknown 09/25/2023 12:00 PM CDT 09/25/2023 9:59 PM CDT David Gordon MD LAB BILL ONLY [facility]AL LABORATORY [address] [place] [address], * MYELOID NGS (LAB ONLY) (09/25/2023 9:10 AM CDT) Bone Marrow (Bone Marrow Aspirate) 09/25/2023 9:10 AM CDT 09/26/2023 3:40 PM CDT David Gordon MD PATHOLOGY/CYTOLOGY Performing Organization Address [facility] de Phone Number [facility] LABORAT[facility]-CENTRAL LABORATORY [address] [place] [address], [place] * BM/LB CHROM (09/25/2023 9:10 AM CDT) Bone Marrow (Bone Marrow Aspirate) 09/25/2023 9:10 AM CDT 09/26/2023 2:58 PM CDT David Gordon MD LABORATORY Performing Organization Address [facility] de Phone Number [facility] orderTopiaCENTRAL LABORATORY [address] [address], [place] * BM WETLAB (09/25/2023 9:10 AM CDT) Bone Marrow (Bone Marrow Aspirate) 09/25/2023 9:10 AM CDT 09/26/2023 2:58 PM CDT David Gordon MD LABORATORY Performing Organization Address [facility] de Phone Number [facility] orderTopiaCENTRAL LABORATORY [address] [place] [address], [place] * OC (09/25/2023 9:10 AM CDT) Bone Marrow (Bone Marrow Aspirate) 09/25/2023 9:10 AM CDT 09/26/2023 2:58 PM CDT David Gordon MD LABORATORY Performing Organization Address [facility] Co de Phone Number [facility] orderTopiaCENTRAL LABORATORY [address] [place] [address], [place] * OB (09/25/2023 9:10 AM CDT) Bone Marrow (Bone Marrow Aspirate) 09/25/2023 9:10 AM CDT 09/26/2023 2:58 PM CDT David Gordon MD LABORATORY Performing Organization Address [facility] de Phone Number [facility] [address] [place] [address], [place] * CHROM TECH 2 (09/25/2023 9:10 AM CDT) Bone Marrow (Bone Marrow Aspirate) 09/25/2023 9:10 AM CDT 09/26/2023 2:58 PM CDT David Gordon MD LABORATORY Performing Organization Address [facility] de Phone Number [facility] [address] [place] [address], [place] * CHROM TECH 1 (09/25/2023 9:10 AM CDT) Bone Marrow (Bone Marrow Aspirate) 09/25/2023 9:10 AM CDT 09/26/2023 2:58 PM CDT David Gordon MD LABORATORY Performing Organization Address [facility] de Phone Number [facility] TeamBuyCENTRAL LABORATORY [address] [place] [address], [place] * BONE MARROW DIFFERENTIAL (09/25/2023 9:10 AM CDT) Bone Marrow (Bone Marrow Aspirate) 09/25/2023 9:10 AM CDT 09/29/2023 7:59 AM CDT David Gordon MD LABORATORY Performing Organization Address [facility] de Phone Number [facility] [address] [place] [address], [place] * CYTOGENETIC BONE MARROW STUDIES (09/25/2023 9:10 AM CDT) RFR Acute Myeloid Leukemia, myeloid neoplasm. 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 See comments. 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 ??Trisomy 8 is classified as an intermediate prognostic risk stratification category in AML (NCCN, 2024). Clinicopathologic correlation of these results is recommended. 10/02/2023 12:17 PM CDT [facility] ENTRAL LABORATORY COMMENTS A preliminary chromosome result was provided to Manny Alfredo MD on 09/29/2023. 10/02/2023 12:17 PM CDT [facility] ENTRAL LABORATORY LAB TEST DETAILS Fully Analyzed Metaphases: ??20 Partially Analyzed Metaphases: ??0 Full Karyotypes: ??3 10/02/2023 12:17 PM CDT [facility] ENTRAL LABORATORY SOURCE Bone Marrow (NaHep) [id number] B1-2 10/02/2023 12:17 PM CDT [facility] ENTRAL LABORATORY METHODS Cultures used in chromosome analysis were non-stimulated. Chromosome analysis is performed on consecutive analyzable G-banded metaphases. 10/02/2023 12:17 PM CDT [facility] ENTRAL LABORATORY REFERENCES National Comprehensive Cancer Network. (2023). Acute Myeloid Leukemia (version 3.2023). Retrieved from https://www.nccn.o rg/professionals/p hysician_gls/pdf/a ml.pdf. Kenia Germain., Alexei Dominguez, Gurjit Pillai., Rachell DominguezS., Alivia SMallory., Sravani Fortune., Isai Wilson. (Eds): WHO Classification of Tumours of Haematopoietic and Lymphoid Tissues. (Revised 4th edition) IARC: Michael 2017. 10/02/2023 12:17 PM CDT [facility] ENTRAL LABORATORY DISCLAIMER This test was developed and its performance characteristics determined by the [facility]. It has not been [...] clinical laboratory testing. 10/02/2023 12:17 PM CDT [facility]-C ENTRAL LABORATORY Bone Marrow (Bone Marrow Aspirate) 09/25/2023 9:10 AM CDT 09/26/2023 2:58 PM CDT David Gordon MD LABORATORY [facility]-CENTRAL LABORATORY [address] [place] [address], * BONE MARROW STUDY (09/25/2023 9:10 AM CDT) Case Report Bone Marrow Pathology Report ?Case: [id number] ? Authorizing Provider: ??David Gordon MD ?Collected: ? 09/25/2023 0910 ? Ordering Location: ? [facility] ?Received: ?09/26/2023 0625 ? Pathologist: ? Manny Alfredo MD ? Specimens: ?? A) - Bone Marrow Aspirate ? B) - Bone Marrow Aspirate (Heparinized) ? C) - Bone Marrow Core Biopsy ? D) - Peripheral Blood ? 10/03/2023 8:51 AM CDT [facility] LABORATORY- CENTRAL LABORATORY Amendment 10/03/2023 - Amendment [...] mutations; see attached report 10/03/2023 8:51 AM T [facility]- CENTRAL LABORATORY Amendment electronically signed by Manny Alfredo [...] a defining cytogenetic abnormality.) 10/03/2023 8:51 AM [facility] LABORATORY Clinical Information Mr. Alba is a 68 y.o. 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 A bone marrow biopsy is performed for further characterization. 10/03/2023 8:51 AM [facility]- CENTRAL LABORATORY PROCEDURE A RIGHT lateral bone marrow biopsy and unilateral aspiration procedure is performed at [facility] on 09/25/23. VIVIANA Monterroso performed the procedure using an 8 gauge manual needle. The ordering physicians are Drs. Gordon and Silke. The specimen is inked orange. EVM 09/26/2023 10/03/2023 8:51 AM T [facility] CENTRAL LABORATORY CBC and Differential HEMATOLOGY PARAMETERS Tested at: ??[facility] ? RESULTS ??EXPECTED VALUES WBC: ? 1.6 ?4.5-93p5314/cumm ?DECREASED RBC: ? 3.8 ?4.30-5.90 mil/cumm ??DECREASED HGB: ? 8.5 ?13.5-17.5 gm/di ? DECREASED HCT: ? 30.7 ? 37-53% ?DECREASED MCV: ? 81.0 ? 80-100 fl ? NORMOCYTIC MCH: ? 23.0 ? 26-34 pg ?DECREASED MCHC: ?28.0 ? 32-36 gm/dl ? HYPOCHROMIC RDW: ? 22.5 ? 11.5-15.5% ?ELEVATED PLT: ? 253 ?140-748a2977/uL ? Retic: ?? 7.91 ?0.5-1.5% ? ELEVATED Differential ?Tested at: ??[facility] ?Absolute (%) ?Expected (%) ?(x10*9/L) ? (x10*9/L) Neutrophils: ?0.5 (31.3) ?1.7-7.0 (42-72%) ??DECREASED Lymphocytes: ?0.6 (37.5) ?0.9-2.9 (20-44%) ??DECREASED Monocytes: ?0.4 (25) ? <0.9 (0-11%) ? Blasts: ? 0.1 (6.3) ? 0 ??(0%) ? BLASTS 10/03/2023 8:51 AM [facility] LABORATORY Reticulocytes Retic: 7.91 0.5-1.5% ELEVATED 10/03/2023 8:51 AM [facility] LABOR[facility]ORY Bone Marrow Differential Blasts: ?23.6 ?0.2-1.5% ?ELEVATED Neutrophils & precursors: ??14.4 ?58.0-65.0% ?DECREASED Erythroid precursors: ?38 ?18.0-24.0% ?ELEVATED Lymphocytes: ? 21 ? 3.0-24.0% ? Monocytes: ? 2.2 ? 0.7-2.8% ? Plasma cells: ?0.8 ? 0.1-1.5% ? M:E Ratio: ? 14 : 38 10/03/2023 8:51 AM [facility] LABORATORY Microscopic Description The final diagnosis is based on microscopic examination of an appropriately stained blood smear. SPECIMENS EXAMINED: Peripheral blood Aspirate direct and concentrate smears: ??Adequate Particle crush smears Touch imprints Clot section Bone core trephine sample (decalcified): ??Adequate, 1.6 cm Bone core and clot section color: ??[place] PERIPHERAL BLOOD: The peripheral smear features support [...] Ringed sideroblasts: Absent 10/03/2023 8:51 AM CDT [facility]- CENTRAL LABORATORY Flow Cytometry Summary Diagnostic Acute [...] Trace positive markers: CD7/CD36 Negative markers: CD65/CD15/CD10/CD64 /LF094l/CD14/CD56/C D11b/CD16/CD2/CD5/C D235a/CD19/CD22(CYT O)/CD79a(CYTO)/TdT( n)/CD3(CYTO) Quality Assessment Viability (7-AAD): 62% Nucleated cells analyzed: 82106 Limit of detection (LOD): 0.1% These results and cytograms have been verified by Dr. Alfredo. This test was developed and its performance characteristics [facility]. It has not been cleared or [...] Wilkerson, 09/26/2023 3:04 PM Verifying Flow Tech: Radhajoon Antonio, 09/26/2023 3:50 PM 10/03/2023 8:51 AM CDT [facility]ORAT[facility] Cytogenetics Summary Cytogenetic testing has been ordered and will be reported separately. 10/03/2023 8:51 AM CDT [facility] Other Testing Immunostains were performed on the bone core biopsy. CD34 (blast marker) (manual morphometry: ??25% 10/03/2023 8:51 AM CDT [facility] Additional Information Interpreted at [facility] Laboratory - [address] [facility] [address], [place] [address] Immunohistochemistr y controls were reviewed and approved by the pathologist during this examination. 10/03/2023 8:51 AM CDT [facility] LABORATORY Bone Marrow (Bone Marrow Aspirate) 09/25/2023 [...] 6:25 AM CDT David Gordon MD [facility]ORY [facility] [address] [place] [address], * PERIPHERAL BLD MORPHOLOGY (09/10/2023 10:34 AM CDT) Only the most recent of2 resultswithin the time period is included. Case Report Special Hematology Report ? Case: [id number] ? Authorizing Provider: ??David Gordon MD ?Collected: ? 09/10/2023 1034 ? Ordering Location: ? [facility] ?Received: ?09/10/2023 2125 ? Pathologist: ? Rolando Retana MD ? Specimen: ?Peripheral Blood ? 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 1-2% circulating blasts 2. Moderate microcytic hypochromic anemia with reticulocytosis (6.7%) 3. 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 Mild absolute monocytosis 5. See comment 09/12/2023 4:51 PM CDT [facility] Comment Since the last described peripheral blood morphology 08/06/2023 ([id number]), the blast count is roughly unchanged. The [...] also reviewed by Mari Armijo MT, MS ([facility]). 09/12/2023 4:51 PM CDT [facility] LABORATORY-C ENTRAL LABORATORY Clinical Information The patient is a 60-year-old male. Pertinent clinical information: Anemia. Per EPIC: She visited the ER 08/23/2023 for an abscess and neutropenia. ??Additional history includes hypertension. His most recent peripheral blood morphology 08/06/2023 ([id number]) showed changes consistent with a myeloid neoplasm with 2% circulating blasts, moderate normocytic anemia, and leukopenia with marked absolute neutropenia with dysgranulopoiesis. 08/23/23 20:13 CREATININE: 1.25 (H) eGFR: ? 63 (L) 09/12/2023 4:51 PM CDT [facility] LABORATORY-C ENTRAL LABORATORY CBC and Differential HEMATOLOGY PARAMETERS Tested at: ??[facility] ? RESULTS ??EXPECTED VALUES WBC: ? 3.3 ?4.5-70a9166/cumm ?DECREASED RBC: ? 3.65 ? 4.30-5.90 mil/cumm ??DECREASED HGB: ? 8.1 ?13.5-17.5 gm/di ? DECREASED HCT: ? 28.8 ? 37-53% ?DECREASED MCV: ? 79.0 ? 80-100 fl ? MICROCYTIC MCH: ? 22.0 ? 26-34 pg ?DECREASED MCHC: ?28.0 ? 32-36 gm/dl ? HYPOCHROMIC RDW: ? 20.3 ? 11.5-15.5% ?ELEVATED PLT: ? 310 ?140-553q1850/uL ? Retic: ?? 6.7 ?0.5-1.5% ?ELEVATED Differential ?Absolute (%) ?Expected (%) ?(x10*9/L) ? (x10*9/L) Neutrophils: ?1.4 (42.6) ?1.7-7.0 (42-72%) ??DECREASED Lymphocytes: ?0.4 (12.2) ?0.9-2.9 (20-44%) ??DECREASED Monocytes: ?1.2 (36.5) ? <0.9 (0-11%) ? ELEVATED Eosinophils: ?0.2 (6.1) ?<0.5 (0-2%) ? 09/12/2023 4:51 PM CDT [facility]- ENTRSC LABORATORY Microscopic Description The final diagnosis is based on microscopic examination of an appropriately stained blood smear. 09/12/2023 4:51 PM CDT [facility] LABORATORY- ENTRAL LABORATORY Additional Information Interpreted at [facility], Central Laboratory - [address] [facility] [address], [place] [address] 09/12/2023 4:51 PM CDT [facility] LABORATORY- ENTRSC LABORATORY Blood (Peripheral Blood) 09/10/2023 10:34 AM CDT 09/10/2023 9:25 PM CDT David Gordon MD HEMATOLOGY [facility]-CENTRAL LABORATORY [address] [place] [address], * PATH TISSUE EXAM (08/29/2023 8:40 AM CDT) Case Report Pathology Report ?Case: [id number] ? Authorizing Provider: ??Eloina Paniagua MD ?Collected: ? 08/29/2023 0840 ? Ordering Location: ? [facility] ?Received: ?08/29/2023 1517 ? Pathologist: ? Georgie Rocha MD ? Specimen: ?Right Leg, Right leg chronic wound necrotic tissue ? 09/03/2023 3:31 PM CDT [facility] EN[facility]AT[facility] Final Diagnosis SKIN AND SOFT TISSUE, RIGHT LEG CHRONIC WOUND, EXCISION: 1. ??Ulcer bed with reactive epithelial hyperplasia, dense dermal mixed inflammatory infiltrate and prominent fibrosis 2. ??No evidence of vasculitis or malignancy right leg 09/03/2023 3:31 PM CDT [facility] Clinical Information Right leg chronic wound necrotic tissue. 09/03/2023 3:31 PM CDT [facility] Gross Description A) Received in formalin, labeled with the patient's name and right leg chronic wound necrotic tissue, is a portion of skin excision measuring 11.5 x 5.5 cm, excised to 1.0 cm deep. The skin surface is entirely dark brown mummified and necrotic. The resection margin is inked blue. The cut surface shows red-brown skeletal. No solid mass is identified. [employer] Teacher sections are submitted in 2 cassettes. TTP 08/29/2023 09/03/2023 3:31 PM CDT [facility] Microscopic Description The final diagnosis is based on microscopic examination of appropriate sections of all specimens. The presence of blue ink is confirmed on tissue sections. 09/03/2023 3:31 PM CDT [facility] LABORATORY Additional Information Interpreted at [facility] Central Laboratory - [address] [place] [address] 09/03/2023 3:31 PM CDT [facility] LAB[facility] Other (Right Leg) 08/29/2023 8:40 AM CDT 08/29/2023 3:17 PM CDT Eloina Paniagua MD PATHOLOGY/CYTOLOGY [facility] [address] [place] [address], * SCAN-CT INTERPRETATION (08/27/2023 12:00 AM CDT) [...] SEDIMENTATION RATE (08/23/2023 8:13 PM CDT) Pathologist [facility] SEDIMENTATION RATE 51(H) <20 mm/hr 2023 8:38 PM T [facility]OR[facility] Blood BLOOD SPECIMEN / Unknown IV Start / Unknown 08/23/2023 8:13 PM CDT 08/23/2023 8:16 PM CDT Elvira MICHELLE HEMATOLOGY [facility] [address] [place] [address] * (ABNORMAL) CBC WITH AUTO DIFFERENTIAL (08/23/2023 8:13 PM CDT) Only the most recent of2 resultswithin the time period is included. WHITE BLOOD COUNT 1.9(L) 4.5 - 11.0 thou/cu mm 08/23/2023 9:06 PM [facility] RED BLOOD COUNT 3.30(L) 4.30 - 5.90 mil/cu mm 08/23/2023 9:06 PM [facility] HEMOGLOBIN 7.4(L) 13.5 - 17.5 g/dL 08/23/2023 9:06 PM [facility] HEMATOCRIT 26.5(L) 37.0 - 53.0 % 08/23/2023 9:06 PM [facility] MCV 80 80 - 100 fL 08/23/2023 9:06 PM [facility] MCH 22.4(L) 26.0 - 34.0 pg 08/23/2023 9:06 PM [facility] MCHC 27.9(L) 32.0 - 36.0 g/dL 08/23/2023 9:06 PM [facility] RDW 19.3(H) 11.5 - 15.5 % 08/23/2023 9:06 PM CDT [facility] PLATELET COUNT 272 140 - 440 thou/cu mm 08/23/2023 9:06 PM CDT [facility] MPV 10.0 6.5 - 11.0 fL 08/23/2023 9:06 PM CDT [facility] Blood BLOOD SPECIMEN / Unknown IV Start / Unknown 08/23/2023 8:13 PM CDT 08/23/2023 8:16 PM CDT Elvira MICHELLE HEMATOLOGY Performing Organization Address City/[facility]/ZIP Co de Phone Number [facility] [address] [place] [address] * (ABNORMAL) RED CELL MORPHOLOGY (08/23/2023 8:13 PM CDT) Only the most recent of2 resultswithin the time period is included. ELLIPTOCYTES Moderate 08/23/2023 9:06 PM CDT [facility] POLYCHROMASIA Moderate 08/23/2023 9:06 PM CDT [facility] RBC COMMENT Present(A) RBC morphology appears normal, RBC morphology within normal limits for newborns. 08/23/2023 9:06 PM CDT [facility] LARGE PLATELETS Present 9:06 PM CDT [facility] Blood BLOOD SPECIMEN / Unknown IV Start / Unknown 08/23/2023 8:13 PM CDT 08/23/2023 8:16 PM CDT Elvira MICHELLE HEMATOLOGY [facility] [address] [place] [address] * PLATELET ESTIMATE (08/23/2023 8:13 PM CDT) Only the most recent of2 resultswithin the time period is included. PLATELET ESTIMATE Adequate Adequate, No estimate 08/23/2023 9:06 PM CDT [facility] Blood BLOOD SPECIMEN / Unknown IV Start / Unknown 08/23/2023 8:13 PM CDT 08/23/2023 8:16 PM CDT Elvira MICHELLE HEMATOLOGY Performing Organization Address City/[facility]/ZIP Co de Phone Number [facility] [address] [place] [address] * LACTATE VENOUS (08/23/2023 8:13 PM CDT) Pathologist [facility] LACTATE,VENOUS 0.5 0.5 - 2.0 mmol/L 08/23/2023 8:40 PM CDT [facility] Blood BLOOD SPECIMEN / Unknown IV Start / Unknown 08/23/2023 8:13 PM CDT 08/23/2023 8:16 PM CDT Elvira MICHELLE CHEMISTRY Performing Organization Address [facility]/ZIP Co de Phone Number [facility] [address] [place] [address] * (ABNORMAL) MANUAL DIFFERENTIAL (08/23/2023 8:13 PM CDT) Only the most recent of2 resultswithin the time period is included. Pathologist [facility] % NEUTROPHILS 20.0 % 08/23/2023 9:06 PM [facility] % LYMPHOCYTES 48.0 % 08/23/2023 9:06 PM [facility] % MONOCYTES 31.0 % 08/23/2023 9:06 PM [facility] % EOSINOPHILS 1.0 % 08/23/2023 9:06 PM [facility] % BASOPHILS 0.0 % 08/23/2023 9:06 PM [facility] NEUTROPHILS ABSOLUTE 0.4(L) 1.7 - 7.0 thou/cu mm 08/23/2023 9:06 PM [facility] LYMPHOCYTES ABSOLUTE 0.9 0.9 - 2.9 thou/cu mm 08/23/2023 9:06 PM [facility] MONOCYTES ABSOLUTE 0.6 <0.9 thou/cu mm 08/23/2023 9:06 PM CDT [facility] EOSINOPHILS ABSOLUTE 0.0 <0.5 thou/cu mm 08/23/2023 9:06 PM CDT [facility] BASOPHILS ABSOLUTE 0.0 <0.3 thou/cu mm 08/23/2023 9:06 PM T [facility] Blood BLOOD SPECIMEN / Unknown IV Start / Unknown 08/23/2023 8:13 PM CDT 08/23/2023 8:16 PM CDT Elvira MICHELLE HEMATOLOGY Performing Organization Address City/[facility]/ZIP Co de Phone Number [facility] [address] [place] [address] * (ABNORMAL) C-REACTIVE PROTEIN (08/23/2023 8:13 PM CDT) C-REACTIVE PROTEIN 2.8(H) <0.5 mg/dL 08/23/2023 8:41 PM T [facility] Blood BLOOD SPECIMEN / Unknown IV Start / Unknown 08/23/2023 8:13 PM CDT 08/23/2023 8:16 PM CDT Elvira MICHELLE CHEMISTRY Performing Organization Address [facility]/ZIP Co de Phone Number [facility] [address] [place] [address] * (ABNORMAL) BASIC METABOLIC PANEL (08/23/2023 8:13 PM CDT) Only the most recent of2 resultswithin the time period is included. SODIUM 133(L) 136 - 145 mmol/L 08/23/2023 8:41 PM CDT [facility] POTASSIUM 4.0 3.5 - 5.1 mmol/L 08/23/2023 8:41 PM CDT [facility] CHLORIDE 104 98 - 107 mmol/L 08/23/2023 8:41 PM T [facility] CO2,TOTAL 22 22 - 29 mmol/L 08/23/2023 8:41 PM T [facility] ANION GAP 7 5 - 18 08/23/2023 8:41 PM T [facility] GLUCOSE 80 70 - 99 mg/dL 08/23/2023 8:41 PM T [facility] CALCIUM 8.4(L) 8.8 - 10.2 mg/dL 08/23/2023 8:41 PM T [facility] BUN 14 8 - 23 mg/dL 08/23/2023 8:41 PM T [facility] CREATININE 1.25(H) 0.70 - 1.20 mg/dL 08/23/2023 8:41 PM T [facility] BUN/CREAT RATIO 11 10 - 20 8:41 PM T [facility] eGFR 63(L) >90 mL/min/1.7 3m2 08/23/2023 8:41 PM [facility] Comment:As of 2021, eG FR is [...] 8:16 PM CDT Elvira MICHELLE CHEMISTRY [facility] [address] [place] [address] * (ABNORMAL) RETICULOCYTES (08/06/2023 9:54 AM CDT) RETIC% 5.4(H) 0.5 - 1.5 % 08/06/2023 10:16 PM CDT [facility] RETIC (ABSOLUTE) 0.21(H) 0.03 - 0.08 mil/cu mm 08/06/2023 10:16 PM CDT [facility] Blood BLOOD SPECIMEN / Unknown Venipuncture / Unknown 08/06/2023 9:54 AM CDT 08/06/2023 9:54 AM CDT Narrative [facility] - 08/06/2023 10:16 PM CDT This procedure was originally ordered at [facility]. Lizeth Alarcon NP HEMATOLOGY Performing Organization Address City/[facility]/ZIP Co de Phone Number [facility] [address] [place] [address], * (ABNORMAL) HEPATIC FUNCTION PANEL (08/06/2023 9:54 AM CDT) ALBUMIN 3.1(L) 4.0 - 4.9 g/dL 08/06/2023 10:19 AM [facility] PROTEIN,TOTAL 9.5(H) 6.0 - 8.0 g/dL 08/06/2023 10:19 AM [facility] BILIRUBIN,TOTAL 0.6 0.0 - 1.2 mg/dL 08/06/2023 10:19 AM [facility] BILIRUBIN,DIRECT <0.2 0.0 - 0.3 mg/dL 08/06/2023 10:19 AM [facility] BILIRUBIN,INDIRE CT 08/06/2023 10:19 AM [facility] Comment:Unable to calculate, Direct Bili <0.2 ALK PHOSPHATASE 87 40 - 129 IU/L 08/06/2023 10:19 AM [facility] ALT (SGPT) 9(L) 10 - 50 IU/L 08/06/2023 10:19 AM [facility] AST (SGOT) 39 10 - 50 IU/L 08/06/2023 10:19 AM [facility] Blood BLOOD SPECIMEN / Unknown Venipuncture / Unknown 08/06/2023 9:54 AM CDT 08/06/2023 9:54 AM CDT Lizeth Alarcon NP CHEMISTRY [facility] [address] [place] [address] * CT CHEST ABDOMEN PELVIS WO (01/03/2023 [...] Reactive Non Reactive 10/11/2022 12:08 PM CDT [facility] ([facility]) Blood BLOOD SPECIMEN / Unknown Venipuncture / Unknown 10/09/2022 9:06 AM CDT 10/09/2022 9:06 AM CDT Narrative [facility] ([facility]) - 10/11/2022 12:08 PM CDT Performed at: ??[address] - [address] ??[id number] Geriatric Physician: Zane Rebolledo MD, Phone: ??[phone] Radha Edouard MD LABORATORY [facility] ([facility]) [address] [place] [address], [place] * CT CHEST ABDOMEN PELVIS W [...] 199 mg/dL 09/09/2022 12:53 PM T [facility] TRIGLYCERIDES 77 <150 mg/dL 09/09/2022 12:53 PM T [facility] HDL CHOLESTEROL 34(L) >40 mg/dL 12:53 PM T [facility] NON-HDL CHOLESTEROL 115 <145 mg/dl 09/09/2022 12:53 PM T [facility] CHOL/HDL RATIO 4.38 <4.50 09/09/2022 12:53 PM T [facility] LDL CHOLESTEROL 100 <=130 mg/dL 09/09/2022 12:53 PM T [facility] VLDL CHOLESTEROL 15 <=30 mg/dL 09/09/2022 12:53 PM T [facility] PROVIDER ORDERED STATUS RANDOM 09/09/2022 12:53 PM T [facility] Blood BLOOD SPECIMEN / Unknown Butterfly / Unknown 09/09/2022 12:06 PM CDT 09/09/2022 12:07 PM CDT David Ambrocio MD CHEMISTRY [facility] [address] [place] [address] from Last 3 Months or Most Recently [...] Discussion: Reviewed Preferences wit h Care Teams Project Coach Relationship Specialty Start Date End Date David Ambrocio MD [address] [place] [address] PCP - General Family Practice 11/27/22 Elvira Morin, RN [address] [place] [address] Nurse Navigator - Oncology Registered Nurse 10/18/22 Radha Edouard MD [address] [place] [address] Medical Oncologist Hematology and Oncology 11/21/22 Lizeth Alarcon, SHANTEL [address] [place], [place] [id number] Nurse Practitioner Hematology and Oncology 11/21/22 Letcher, KYUNG Hong [address] [place], [place] [id number] Chemical Research Engineer 01/06/[address] [address] 01/21/23
== END 2023-10-28 14:48 | disposition home or self-care (01) ==
LOC: WOUND 14:48
PROVIDERS: PCP Internal Medicine; Visit Provider Nurse Practitioner Family
DX: I87.311 Chronic venous hypertension (idiopathic) with ulcer of right lower extremity (principal); L97.212 Non-pressure chronic ulcer of right calf with fat layer exposed
CPT/HCPCS: 11042; 11045

== ENCOUNTER 2023-11-04 15:00 | Outpatient (CLI) | payer MEDICARE, BC, SELFPAY ==
--- OUTSIDE RECORDS SUMMARY | 2023-11-04 15:03 | XMS_ITS | Clinical Summary ---
Author Organization [facility] Address [place], [place] [address] Care Team Providers Care Transmission Systems Operator Name Role Phone Elvira Morin Stefano RN Unavailable Radha Edouard MD Unavailable Lizeth Alarcon MANAGER AGRICULTURE Unavailable David Ambrocio MD Primary Care Provider [phone] Jaylon RaymondW Unavailable [phone] [facility] Unavailable Allergies Active Allergy Reactions [...] Department Care Team Description 10/28/2023 Orders Only [facility] Scanner 1 scan: (1-Ord) INCOMING RECORDS-CT, [facility], 10/28/2023 10/28/2023 Orders Only [facility] Scanner 1 scan: (1-Ord) INCOMING RECORDS-LABS, [facility], 10/28/2023 10/28/2023 Orders Only [facility] Scanner 1 scan: (1-Ord) INCOMING RECORDS-LABS, [facility], 10/28/2023 10/27/2023 Telephone [facility] [address] [phone] [facility] Cancer Referral (AML) 09/25/2023 Lab Requisition L CENTRAL [facility] [phone] David Gordon MD 09/10/2023 Lab Requisition [facility] [phone] David Gordon MD 08/29/2023 Lab Requisition [facility] [phone] Eloina Paniagua MD 08/27/2023 Orders Only [facility] Scanner 1 scan: (1-Ord) KEN, LOWER LEG RT W/COM, 08/27/2023 08/23/2023 7:26 PM CDT - 08/23/2023 11:10 PM CDT Emergency [facility] [address] [place] [address] Elvira Thayer PA Abscess of right lower extremity (Primary Dx); Neutropenia, unspecified type (HC) Discharge Disposition: Home Self Care 08/23/2023 Travel 08/12/2023 11:00 AM CDT Office Visit [facility] [address] [place] [address] Radha Edouard MD Follow Up (Pancytopenia (HC) [D61.818]//) 08/12/2023 Travel 08/06/2023 9:47 AM CDT - 08/06/2023 11:59 PM CDT Hospital Encounter [facility] [address] [place] [address] Pancytopenia (HC) [D61.818] 08/06/2023 Travel from Last [...] Info) Description 11/12/2023 9:00 AM CDT Appointment [facility] [address] [place] [address] 11/19/2023 11:15 AM CDT Office Visit [facility] [address] [place] [phone] Lizeth Alarcon NP [address] [place] [address] Health Maintenance Due Date Last Done Comments Pneumococcal series for age 65+ (1 of 2 - PCV) 1961 Colonoscopy through age 75 2000 Zoster (shingles) series for age 50+ (1 of 2) 2005 Medicare Wellness for age 65+ 2020 COVID-19 vaccine series ( - 2022-24 season) 2022 Depression screening for [...] SCAN CORRESP-LABORATORY RESULTS 10/28/2023 12:00 AM CDT SCAN CORRESP-LABORATORY RESULTS 10/28/2023 12:00 AM CDT SCAN CORRESP-IMAGING 10/28/2023 12:00 AM CDT LAB TRACKING EVENT [...] SCAN CORRESP-LABORATORY RESULTS (10/28/2023 12:00 AM CDT) Only the most recent of2 resultswithin the time period is included. Scanner OTHER * SCAN CORRESP-IMAGING (10/28/2023 12:00 AM CDT) Anatomical Region Laterality Modality Other Scanner OTHER * LAB TRACKING EVENT (09/25/2023 12:00 PM CDT) Only the most recent of3 resultswithin the time period is included. Other (Other) Client Collect / Unknown 09/25/2023 12:00 PM CDT 09/25/2023 9:59 PM CDT David Gordon MD LAB BILL ONLY Performing Organization Address [facility] Co de Phone Number [facility]ATORYLingoLiveCENTRAL LABORATORY [address] [place] [address], [place] * MYELOID NGS (LAB ONLY) (09/25/2023 9:10 AM CDT) Bone Marrow (Bone Marrow Aspirate) 09/25/2023 9:10 AM CDT 09/26/2023 3:40 PM CDT David Gordon MD PATHOLOGY/CYTOLOGY Performing Organization Address [facility] Co de Phone Number [facility] LAB[facility]ORYCENTRAL LABORATORY [address] [place] [address], [place] * BM/LB CHROM (09/25/2023 9:10 AM CDT) Bone Marrow (Bone Marrow Aspirate) 09/25/2023 9:10 AM CDT 09/26/2023 2:58 PM CDT David Gordon MD LABORATORY Performing Organization Address City/[facility]/ZIP Co de Phone Number [facility]-C[facility]AL LABORATORY [address] [place] [address], [place] * BM WETLAB (09/25/2023 9:10 AM CDT) Bone Marrow (Bone Marrow Aspirate) 09/25/2023 9:10 AM CDT 09/26/2023 2:58 PM CDT David Gordon MD LABORATORY Performing Organization Address City/[facility] Co de Phone Number [facility] [address] [place] [address], [place] * OC (09/25/2023 9:10 AM CDT) Bone Marrow (Bone Marrow Aspirate) 09/25/2023 9:10 AM CDT 09/26/2023 2:58 PM CDT David Gordon MD LABORATORY Performing Organization Address [facility] de Phone Number [facility] [address] [place] [address], [place] * OB (09/25/2023 9:10 AM CDT) Bone Marrow (Bone Marrow Aspirate) 09/25/2023 9:10 AM CDT 09/26/2023 2:58 PM CDT David Gordon MD LABORATORY Performing Organization Address [facility] de Phone Number [facility] [address] [place] [phone], [place] * CHROM TECH 2 (09/25/2023 9:10 AM CDT) Bone Marrow (Bone Marrow Aspirate) 09/25/2023 9:10 AM CDT 09/26/2023 2:58 PM CDT David Gordon MD LABORATORY Performing Organization Address [facility] de Phone Number [facility] [address] [address], [place] * CHROM TECH 1 (09/25/2023 9:10 AM CDT) Bone Marrow (Bone Marrow Aspirate) 09/25/2023 9:10 AM CDT 09/26/2023 2:58 PM CDT David Gordon MD LABORATORY Performing Organization Address [facility] Co de Phone Number [facility] [address] [place] [address], [place] * BONE MARROW DIFFERENTIAL (09/25/2023 9:10 AM CDT) Bone Marrow (Bone Marrow Aspirate) 09/25/2023 9:10 AM CDT 09/29/2023 7:59 AM CDT David Gordon MD LABORATORY [facility] [address] [place] [address], * CYTOGENETIC BONE MARROW STUDIES (09/25/2023 9:10 AM CDT) RFR Acute Myeloid Leukemia, myeloid neoplasm. 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 See comments. 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 ??Trisomy 8 is classified as an intermediate prognostic risk stratification category in AML (NCCN, 2024). Clinicopathologic correlation of these results is recommended. 10/02/2023 12:17 PM CDT [facility] COMMENTS A preliminary chromosome result was provided to Manny Alfredo MD on 09/29/2023. 10/02/2023 12:17 PM CDT [facility] LAB TEST DETAILS Fully Analyzed Metaphases: ??20 Partially Analyzed Metaphases: ??0 Full Karyotypes: ??3 10/02/2023 12:17 PM CDT [facility] SOURCE [facility] [id number] B1-2 10/02/2023 12:17 PM CDT [facility] METHODS Cultures used in chromosome analysis were non-stimulated. Chromosome analysis is performed on consecutive analyzable G-banded metaphases. 10/02/2023 12:17 PM CDT [facility] LABORATORY REFERENCES National Comprehensive Cancer Network. (2023). Acute Myeloid Leukemia (version 3.2023). Retrieved from https://www.nccn.o rg/professionals/p hysicijasvir_gls/pdf/a ml.pdf. Kenia Germain., Alexei Dominguez, Gurjit Burden, Rachell Kebede., Alivia Araujo, Sravani Garcia, Isai Wilson. (Eds): WHO Classification of Tumours of Haematopoietic and Lymphoid Tissues. (Revised 4th edition) IARC: Rodriguez 2017. 10/02/2023 12:17 PM CDT [facility]WI LABORATORY DISCLAIMER This test was developed and its performance characteristics determined by [facility]. It has not been cleared [...] clinical laboratory testing. 10/02/2023 12:17 PM CDT [facility] LABORATORY Bone Marrow (Bone Marrow Aspirate) 09/25/2023 9:10 AM CDT 09/26/2023 2:58 PM CDT David Gordon MD LABORATORY Performing Organization Address City/State/[facility] Co de Phone Number [facility]-CENTRAL LABORATORY [address] [place] [address], * BONE MARROW STUDY (09/25/2023 9:10 AM CDT) Case Report Bone Marrow Pathology Report ?Case: [id number] ? Authorizing Provider: ??David Gordon MD ?Collected: ? 09/25/2023 0910 ? Ordering Location: ? [facility] ?Received: ?09/26/2023 06 ? Pathologist: ? Manny Alfredo MD ? Specimens: ?? A) - Bone Marrow Aspirate ? B) - Bone Marrow Aspirate (Heparinized) ? C) - Bone Marrow Core Biopsy ? D) - Peripheral Blood ? 10/03/2023 8:51 AM CDT [facility]- C[facility]AL LABORATORY Amendment 10/03/2023 - Amendment to report [facility] Myeloid Targeted Next Generation Sequencing (NGS) results. Please see diagnosis and attached scanned report. Results are communicated with Dr. Edouard via Secure Chat on 10/03/[address] Alfredo. 10/03/2023 8:51 AM T [facility]- CENTRAL LABORATORY Final Diagnosis BONE [...] see attached report 10/03/2023 8:51 AM T [facility]- C[facility]AL LAB[facility]ATORY Amendment electronically signed by Manny Alfredo MD on 10/03/2023 at 8:51 AM Comment Results are electronically communicated via Secure Chat to Dr. Edouard and Lizeth Alarcon on 09/29/[address] Alfredo. 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 (The +8 in this case is recognized by the International Consensus Classification (ICC) of Acute Leukemias as a defining cytogenetic abnormality; however, +8 is not recognized by WHO 2022 as a defining cytogenetic abnormality.) 10/03/2023 8:51 AM T [facility]- CEN[facility]AL LABORATORY Clinical Information Mr. Alba is a 68 y.o. With a peripheral blood morphology consistent with a myeloid neoplasm with 1-2% circulating blasts, moderate microcytic hypochromic anemia with reticulocytosis (6.7%), leukopenia reflecting mild absolute neutropenia with dysgranulopoiesis and lymphocytopenia, and mild absolute monocytosis ([id number], 09/10/23). A bone marrow biopsy is performed for further characterization. 10/03/2023 8:51 AM CDT [facility]- CENTRAL LABORATORY PROCEDURE A RIGHT lateral bone marrow biopsy and unilateral aspiration procedure is performed at [facility] on 09/25/23. VIVIANA Monterroso performed the procedure using an 8 gauge manual needle. The ordering physicians are Drs. Gordon and Silke. The specimen is inked orange. EVM 09/26/2023 10/03/2023 8:51 AM CDT [facility] CBC and Differential HEMATOLOGY PARAMETERS Tested at: ??[facility] ? RESULTS ??EXPECTED VALUES WBC: ? 1.6 ?4.5-19s4123/cumm ?DECREASED RBC: ? 3.8 ?4.30-5.90 mil/cumm ??DECREASED HGB: ? 8.5 ?13.5-17.5 gm/di ? DECREASED HCT: ? 30.7 ? 37-53% ?DECREASED MCV: ? 81.0 ? 80-100 fl ? NORMOCYTIC MCH: ? 23.0 ? 26-34 pg ?DECREASED MCHC: ?28.0 ? 32-36 gm/dl ? HYPOCHROMIC RDW: ? 22.5 ? 11.5-15.5% ?ELEVATED PLT: ? 253 ?140-070r1472/uL ? Retic: ?? 7.91 ?0.5-1.5% ? ELEVATED Differential ?Tested at: ??[facility] ?Absolute (%) ?Expected (%) ?(x10*9/L) ? (x10*9/L) Neutrophils: ?0.5 (31.3) ?1.7-7.0 (42-72%) ??DECREASED Lymphocytes: ?0.6 (37.5) ?0.9-2.9 (20-44%) ??DECREASED Monocytes: ?0.4 (25) ? <0.9 (0-11%) ? Blasts: ? 0.1 (6.3) ? 0 ??(0%) ? BLASTS 10/03/2023 8:51 AM CDT [facility] Reticulocytes Retic: 7.91 0.5-1.5% ELEVATED 10/03/2023 8:51 AM CDT [facility] Bone Marrow Differential Blasts: ?23.6 ?0.2-1.5% ?ELEVATED Neutrophils & precursors: ??14.4 ?58.0-65.0% ?DECREASED Erythroid precursors: ?38 ?18.0-24.0% ?ELEVATED Lymphocytes: ? 21 ? 3.0-24.0% ? Monocytes: ? 2.2 ? 0.7-2.8% ? Plasma cells: ?0.8 ? 0.1-1.5% ? M:E Ratio: ? 14 : 38 10/03/2023 8:51 AM [facility] Microscopic Description The final diagnosis is based on microscopic examination of an appropriately stained blood smear. SPECIMENS EXAMINED: Peripheral blood Aspirate direct and concentrate smears: ??Adequate Particle crush smears Touch imprints Clot section Bone core trephine sample (decalcified): ??Adequate, 1.6 cm Bone core and clot section color: ??[place] PERIPHERAL BLOOD: The peripheral smear features support [...] Decreased Ringed sideroblasts: Absent 10/03/2023 8:51 AM [facility] Flow Cytometry Summary Diagnostic Acute Myeloid [...] Trace positive markers: CD7/CD36 Negative markers: CD65/CD15/CD10/CD64 /MN524p/CD14/CD56/C D11b/CD16/CD2/CD5/C D235a/CD19/CD22(CYT O)/CD79a(CYTO)/TdT( n)/CD3(CYTO) Quality Assessment Viability (7-AAD): 62% Nucleated cells analyzed: 47589 Limit of detection (LOD): 0.1% These results and cytograms have been verified by Dr. Alfredo. This test was developed and its performance characteristics verified by [facility]. It has not been cleared or approved [...] 09/26/2023 3:50 PM 10/03/2023 8:51 AM CDT [facility] Cytogenetics Summary Cytogenetic testing has been ordered and will be reported separately. 10/03/2023 8:51 AM CDT [facility] Other Testing Immunostains were performed on the bone core biopsy. CD34 (blast marker) (manual morphometry: ??25% 10/03/2023 8:51 AM CDT [facility]AT[facility] Additional Information Interpreted at [facility] - [address] [address] Immunohistochemistr y controls were reviewed and approved by the pathologist during this examination. 10/03/2023 8:51 AM CDT [facility] LAB[facility]ATORY Bone Marrow (Bone Marrow Aspirate) 09/25/2023 [...] 6:25 AM CDT David Gordon MD LABORATORY [facility]-CENTRAL LABORATORY [address] [place] [address], * PERIPHERAL BLD MORPHOLOGY (09/10/2023 10:34 AM CDT) Only the most recent of2 resultswithin the time period is included. Case Report Special Hematology Report ? Case: [id number] ? Authorizing Provider: ??David Gordon MD ?Collected: ? 09/10/2023 1034 ? Ordering Location: ? [facility] ?Received: ?09/10/20232124 ? Pathologist: ? Rolando Retana MD ? Specimen: ?Peripheral Blood ? 09/12/2023 4:51 PM CDT [facility] ENTRAL LABORATORY Final Diagnosis PERIPHERAL BLOOD: Continued changes consistent with a myeloid neoplasm 1. 1-2% circulating blasts 2. Moderate microcytic hypochromic anemia with reticulocytosis (6.7%) 3. 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 Mild absolute monocytosis 5. See comment 09/12/2023 4:51 PM CDT [facility]-C [facility] Comment Since the last described peripheral blood morphology 08/06/2023 ([id number]), the blast count is roughly unchanged. The [...] also reviewed by Mari Armijo MT, MS ([facility]). 09/12/2023 4:51 PM CDT [facility] Clinical Information The patient is a 60-year-old male. Pertinent clinical information: Anemia. Per EPIC: She visited the ER 08/23/2023 for an abscess and neutropenia. ??Additional history includes hypertension. His most recent peripheral blood morphology 08/06/2023 ([id number]) showed changes consistent with a myeloid neoplasm with 2% circulating blasts, moderate normocytic anemia, and leukopenia with marked absolute neutropenia with dysgranulopoiesis. 08/23/23 20:13 CREATININE: 1.25 (H) eGFR: ? 63 (L) 09/12/2023 4:51 PM CDT [facility]-C ENTRAL LABORATORY CBC and Differential HEMATOLOGY PARAMETERS Tested at: [facility] ? RESULTS ??EXPECTED VALUES WBC: ? 3.3 ?4.5-63o4719/cumm ?DECREASED RBC: ? 3.65 ? 4.30-5.90 mil/cumm ??DECREASED HGB: ? 8.1 ?13.5-17.5 gm/di ? DECREASED HCT: ? 28.8 ? 37-53% ?DECREASED MCV: ? 79.0 ? 80-100 fl ? MICROCYTIC MCH: ? 22.0 ? 26-34 pg ?DECREASED MCHC: ?28.0 ? 32-36 gm/dl ? HYPOCHROMIC RDW: ? 20.3 ? 11.5-15.5% ?ELEVATED PLT: ? 310 ?140-045d3051/uL ? Retic: ?? 6.7 ?0.5-1.5% ?ELEVATED Differential ?Absolute (%) ?Expected (%) ?(x10*9/L) ? (x10*9/L) Neutrophils: ?1.4 (42.6) ?1.7-7.0 (42-72%) ??DECREASED Lymphocytes: ?0.4 (12.2) ?0.9-2.9 (20-44%) ??DECREASED Monocytes: ?1.2 (36.5) ? <0.9 (0-11%) ? ELEVATED Eosinophils: ?0.2 (6.1) ?<0.5 (0-2%) ? 09/12/2023 4:51 PM CDT [facility] ENTRAL LABORATORY Microscopic Description The final diagnosis is based on microscopic examination of an appropriately stained blood smear. 09/12/2023 4:51 PM CDT [facility] EN[facility] LAB[facility]AT[facility] Additional Information Interpreted at [facility] [address] [facility] [address] [address] 09/12/2023 4:51 PM CDT [facility] Blood (Peripheral Blood) 09/10/2023 10:34 AM CDT 09/10/2023 9:25 PM CDT David Gordon MD HEMATOLOGY Performing Organization Address City/State/[facility] Co de Phone Number [facility]ORY [address] [place] [address], * PATH TISSUE EXAM (08/29/2023 8:40 AM CDT) Case Report Pathology Report ?Case: [id number] ? Authorizing Provider: ??Eloina Paniagua MD ?Collected: ? 08/29/2023 0840 ? Ordering Location: ? [facility] ?Received: ?08/29/2023 1517 ? Pathologist: ? Georgie Rocha MD ? Specimen: ?Right Leg, Right leg chronic wound necrotic tissue ? 09/03/2023 3:31 PM CDT [facility] EN[facility]AL LABORATORY Final Diagnosis SKIN AND SOFT TISSUE, RIGHT LEG CHRONIC WOUND, EXCISION: 1. ??Ulcer bed with reactive epithelial hyperplasia, dense dermal mixed inflammatory infiltrate and prominent fibrosis 2. ??No evidence of vasculitis or malignancy right leg 09/03/2023 3:31 PM CDT [facility] Clinical Information Right leg chronic wound necrotic tissue. 09/03/2023 3:31 PM CDT [facility] Gross Description A) Received in formalin, labeled with the patient's name and right leg chronic wound necrotic tissue, is a portion of skin excision measuring 11.5 x 5.5 cm, excised to 1.0 cm deep. The skin surface is entirely dark brown mummified and necrotic. The resection margin is inked blue. The cut surface shows red-brown skeletal. No solid mass is identified. Manager Bench sections are submitted in 2 cassettes. TTP 08/29/2023 09/03/2023 3:31 PM CDT [facility] Microscopic Description The final diagnosis is based on microscopic examination of appropriate sections of all specimens. The presence of blue ink is confirmed on tissue sections. 09/03/2023 3:31 PM CDT [facility] Additional Information Interpreted at [facility] - [address] [address] 09/03/2023 3:31 PM T [facility] Other (Right Leg) 08/29/2023 8:40 AM CDT 08/29/2023 3:17 PM CDT Eloina Paniagua MD PATHOLOGY/CYTOLOGY [facility] [address] [place] [address], * SCAN-CT INTERPRETATION (08/27/2023 12:00 AM CDT) [...] (ABNORMAL) SEDIMENTATION RATE (08/23/2023 8:13 PM CDT) [facility] SEDIMENTATION RATE 51(H) <20 mm/hr 2023 8:38 PM CDT [facility] Blood BLOOD SPECIMEN / Unknown IV Start / Unknown 08/23/2023 8:13 PM CDT 08/23/2023 8:16 PM CDT Elvira MICHELLE HEMATOLOGY [facility] [address] [place] [address] * (ABNORMAL) CBC WITH AUTO DIFFERENTIAL (08/23/2023 8:13 PM CDT) Only the most recent of2 resultswithin the time period is included. [facility] WHITE BLOOD COUNT 1.9(L) 4.5 - 11.0 thou/cu mm 08/23/2023 9:06 PM CDT [facility] RED BLOOD COUNT 3.30(L) 4.30 - 5.90 mil/cu mm 08/23/2023 9:06 PM [facility] HEMOGLOBIN 7.4(L) 13.5 - 17.5 g/dL 08/23/2023 9:06 PM [facility] HEMATOCRIT 26.5(L) 37.0 - 53.0 % 08/23/2023 9:06 PM [facility] MCV 80 80 - 100 fL 08/23/2023 9:06 PM [facility] MCH 22.4(L) 26.0 - 34.0 pg 08/23/2023 9:06 PM [facility] MCHC 27.9(L) 32.0 - 36.0 g/dL 08/23/2023 9:06 PM [facility] RDW 19.3(H) 11.5 - 15.5 % 08/23/2023 9:06 PM [facility] PLATELET COUNT 272 140 - 440 thou/cu mm 08/23/2023 9:06 PM [facility] MPV 10.0 6.5 - 11.0 fL 08/23/2023 9:06 PM [facility] Blood BLOOD SPECIMEN / Unknown IV Start / Unknown 08/23/2023 8:13 PM CDT 08/23/2023 8:16 PM CDT Elvira MICHELLE HEMATOLOGY Performing Organization Address City/State/[facility] Co de Phone Number [facility] [address] [place] [address] * (ABNORMAL) RED CELL MORPHOLOGY (08/23/2023 8:13 PM CDT) Only the most recent of2 resultswithin the time period is included. ELLIPTOCYTES Moderate 08/23/2023 9:06 PM [facility] POLYCHROMASIA Moderate 08/23/2023 9:06 PM [facility] RBC COMMENT Present(A) RBC morphology appears normal, RBC morphology within normal limits for newborns. 08/23/2023 9:06 PM [facility] LARGE PLATELETS Present 9:06 PM CDT [facility] Blood BLOOD SPECIMEN / Unknown IV Start / Unknown 08/23/2023 8:13 PM CDT 08/23/2023 8:16 PM CDT Elvira MICHELLE HEMATOLOGY Performing Organization Address City/[facility] Co de Phone Number [facility] [address] [place] [address] * PLATELET ESTIMATE (08/23/2023 8:13 PM CDT) Only the most recent of2 resultswithin the time period is included. PLATELET ESTIMATE Adequate Adequate, No estimate 08/23/2023 9:06 PM CDT [facility] Blood BLOOD SPECIMEN / Unknown IV Start / Unknown 08/23/2023 8:13 PM CDT 08/23/2023 8:16 PM CDT Elvira MICHELLE HEMATOLOGY Performing Organization Address [facility] de Phone Number [facility] [address] [place] [address] * LACTATE VENOUS (08/23/2023 8:13 PM CDT) LACTATE,VENOUS 0.5 0.5 - 2.0 mmol/L 08/23/2023 8:40 PM CDT [facility] Blood BLOOD SPECIMEN / Unknown IV Start / Unknown 08/23/2023 8:13 PM CDT 08/23/2023 8:16 PM CDT Elvira MICHELLE CHEMISTRY Performing Organization Address [facility] Co de Phone Number [facility] [address] [place] [address] * (ABNORMAL) MANUAL DIFFERENTIAL (08/23/2023 8:13 PM CDT) Only the most recent of2 resultswithin the time period is included. % NEUTROPHILS 20.0 % 08/23/2023 9:06 PM T [facility] % LYMPHOCYTES 48.0 % 08/23/2023 9:06 PM T [facility] % MONOCYTES 31.0 % 08/23/2023 9:06 PM T [facility] % EOSINOPHILS 1.0 % 08/23/2023 9:06 PM T [facility] % BASOPHILS 0.0 % 08/23/2023 9:06 PM T [facility] NEUTROPHILS ABSOLUTE 0.4(L) 1.7 - 7.0 thou/cu mm 08/23/2023 9:06 PM T [facility] LYMPHOCYTES ABSOLUTE 0.9 0.9 - 2.9 thou/cu mm 08/23/2023 9:06 PM T [facility] MONOCYTES ABSOLUTE 0.6 <0.9 thou/cu mm 08/23/2023 9:06 PM T [facility] EOSINOPHILS ABSOLUTE 0.0 <0.5 thou/cu mm 08/23/2023 9:06 PM T [facility] BASOPHILS ABSOLUTE 0.0 <0.3 thou/cu mm 08/23/2023 9:06 PM T [facility] Blood BLOOD SPECIMEN / Unknown IV Start / Unknown 08/23/2023 8:13 PM CDT 08/23/2023 8:16 PM CDT Elvira MICHELLE HEMATOLOGY [facility] [address] [place] [address] * (ABNORMAL) C-REACTIVE PROTEIN (08/23/2023 8:13 PM CDT) C-REACTIVE PROTEIN 2.8(H) <0.5 mg/dL 08/23/2023 8:41 PM CDT [facility] Blood BLOOD SPECIMEN / Unknown IV Start / Unknown 08/23/2023 8:13 PM CDT 08/23/2023 8:16 PM CDT Elvira MICHELLE CHEMISTRY [facility] [address] [place] [address] * (ABNORMAL) BASIC METABOLIC PANEL (08/23/2023 8:13 PM CDT) Only the most recent of2 resultswithin the time period is included. SODIUM 133(L) 136 - 145 mmol/L 08/23/2023 8:41 PM T [facility] POTASSIUM 4.0 3.5 - 5.1 mmol/L 08/23/2023 8:41 PM [facility] CHLORIDE 104 98 - 107 mmol/L 08/23/2023 8:41 PM [facility] CO2,TOTAL 22 22 - 29 mmol/L 08/23/2023 8:41 PM [facility] ANION GAP 7 5 - 18 08/23/2023 8:41 PM [facility] GLUCOSE 80 70 - 99 mg/dL 08/23/2023 8:41 PM [facility] CALCIUM 8.4(L) 8.8 - 10.2 mg/dL 08/23/2023 8:41 PM [facility] BUN 14 8 - 23 mg/dL 08/23/2023 8:41 PM [facility] CREATININE 1.25(H) 0.70 - 1.20 mg/dL 08/23/2023 8:41 PM [facility] BUN/CREAT RATIO 11 10 - 20 8:41 PM [facility] eGFR 63(L) >90 mL/min/1.7 3m2 08/23/2023 8:41 PM [facility] Comment:As of 2021, eG FR is calculated by the CKD-EPI creatinine equation without race adjustment. ??eGFR can be influenced by muscle mass, exercise, and diet. ??The reported eGFR is an estimation only and is only applicable if the renal function is stable. Blood BLOOD SPECIMEN / Unknown IV Start / Unknown 08/23/2023 8:13 PM CDT 08/23/2023 8:16 PM CDT Elvira MICHELLE CHEMISTRY [facility] [address] [place] [address] * (ABNORMAL) RETICULOCYTES (08/06/2023 9:54 AM CDT) RETIC% 5.4(H) 0.5 - 1.5 % 08/06/2023 10:16 PM CDT [facility] RETIC (ABSOLUTE) 0.21(H) 0.03 - 0.08 mil/cu mm 08/06/2023 10:16 PM CDT [facility] Blood BLOOD SPECIMEN / Unknown Venipuncture / Unknown 08/06/2023 9:54 AM CDT 08/06/2023 9:54 AM CDT Narrative [facility] - 08/06/2023 10:16 PM CDT This procedure was originally ordered at [facility]. Lizeth Alarcon NP [facility] [address] [place] [address], * (ABNORMAL) HEPATIC FUNCTION PANEL (08/06/2023 9:54 AM CDT) ALBUMIN 3.1(L) 4.0 - 4.9 g/dL 08/06/2023 10:19 AM CDT [facility] PROTEIN,TOTAL 9.5(H) 6.0 - 8.0 g/dL 08/06/2023 10:19 AM CDT [facility] BILIRUBIN,TOTAL 0.6 0.0 - 1.2 mg/dL 08/06/2023 10:19 AM CDT [facility] BILIRUBIN,DIRECT <0.2 0.0 - 0.3 mg/dL 08/06/2023 10:19 AM CDT [facility] BILIRUBIN,INDIRE CT 08/06/2023 10:19 AM CDT [facility] Comment:Unable to calculate, Direct Bili <0.2 ALK PHOSPHATASE 87 40 - 129 IU/L 08/06/2023 10:19 AM CDT [facility] ALT (SGPT) 9(L) 10 - 50 IU/L 08/06/2023 10:19 AM CDT [facility] AST (SGOT) 39 10 - 50 IU/L 08/06/2023 10:19 AM CDT [facility] Blood BLOOD SPECIMEN / Unknown Venipuncture / Unknown 08/06/2023 9:54 AM CDT 08/06/2023 9:54 AM CDT Lizeth Alarcon NP CHEMISTRY [facility] [address] [place] [address] * CT CHEST ABDOMEN PELVIS WO (01/03/2023 [...] Reactive Non Reactive 10/11/2022 12:08 PM CDT [facility] Blood BLOOD SPECIMEN / Unknown Venipuncture / Unknown 10/09/2022 9:06 AM CDT 10/09/2022 9:06 AM CDT Narrative [facility] - 10/11/2022 12:08 PM CDT Performed at: ??[address] ??[id number] Boat [employer] Deck Hand: Zane Rebolledo MD, Phone: ??[phone] Radha Edouard MD LABORATORY [facility] ([facility]) [address] [place] [address], [place] * CT CHEST ABDOMEN PELVIS W [...] 100 - 199 mg/dL 09/09/2022 12:53 PM [facility] TRIGLYCERIDES 77 <150 mg/dL 09/09/2022 12:53 PM [facility] HDL CHOLESTEROL 34(L) >40 mg/dL 12:53 PM [facility] NON-HDL CHOLESTEROL 115 <145 mg/dl 09/09/2022 12:53 PM [facility] CHOL/HDL RATIO 4.38 <4.50 09/09/2022 12:53 PM [facility] LDL CHOLESTEROL 100 <=130 mg/dL 09/09/2022 12:53 PM CDT [facility] VLDL CHOLESTEROL 15 <=30 mg/dL 09/09/2022 12:53 PM CDT [facility] PROVIDER ORDERED STATUS RANDOM 09/09/2022 12:53 PM CDT [facility] Blood BLOOD SPECIMEN / Unknown Butterfly / Unknown 09/09/2022 12:06 PM CDT 09/09/2022 12:07 PM CDT David Ambrocio MD CHEMISTRY [facility] [address] [place], [place] [id number] from Last 3 Months or Most Recently [...] Discussion: Reviewed Preferences wit h Care Teams Transmission Systems Operator Relationship Specialty Start Date End Date David Ambrocio MD [address] [place] [address] PCP - General Family Practice 11/27/22 Elvira Morin, SAHIL [address] [place] [address] Nurse Navigator - Oncology Registered Nurse 10/18/22 Radha Edouard MD [address] [place] [address] Medical Oncologist Hematology and Oncology 11/21/22 Lizeth Alarcon, SHANTEL [address] [place] [address] Nurse Practitioner Hematology and Oncology 11/21/22 Jaylon Raymond LSW [address] [place] [address] Sack Department Supervisor 01/06/23 [facility] [address] [place] [address] 01/21/23
== END 2023-11-04 15:01 | disposition home or self-care (01) ==
LOC: WOUND 15:00
PROVIDERS: PCP Internal Medicine; Visit Provider Nurse Practitioner Family
DX: I87.311 Chronic venous hypertension (idiopathic) with ulcer of right lower extremity (principal); L97.212 Non-pressure chronic ulcer of right calf with fat layer exposed
CPT/HCPCS: 11042; 11045

== ENCOUNTER 2023-11-07 14:00 | Outpatient (CLI) | payer MEDICARE, BC, SELFPAY ==
--- OUTSIDE RECORDS SUMMARY | 2023-11-11 12:11 | XMS_ITS | Clinical Summary ---
Author Organization [facility] Address [place], [place] [address] Care Team Providers Care Tracer Powder Blender Name Role Phone Elvira Morin Stefano RN Unavailable Radha Edouard MD Unavailable [phone] Lizeth Alracon HE[facility] WELLNESS COACH Unavailable David Ambrocio MD Primary Care Provider Jaylon RaymondW Unavailable [phone] [facility] Un[facility] Allergies Active Allergy Reactions [...] Department Care Team Description 10/28/2023 Orders Only [facility] Scanner 1 scan: (1-Ord) INCOMING RECORDS-CT, [facility], 10/28/2023 10/28/2023 Orders Only [facility] Scanner 1 scan: (1-Ord) INCOMING RECORDS-LABS, [facility], 10/28/2023 10/28/2023 Orders Only [facility] Scanner 1 scan: (1-Ord) INCOMING RECORDS-LABS, [facility], 10/28/2023 10/27/2023 Telephone [facility] Cancer [address] [phone] [facility] Cancer Referral (AML) 09/25/2023 Lab Requisition [facility] CENTRAL LAB [phone] David Gordon MD 09/10/2023 Lab Requisition [facility] [phone] David Gordon MD 08/29/2023 Lab Requisition [facility] C[facility]AL LAB [phone] Eloina Paniagua MD 08/27/2023 Orders Only [facility] Scanner 1 scan: (1-Ord) KEN, LOWER LEG RT W/COM, 08/27/2023 08/23/2023 7:26 PM CDT - 08/23/2023 11:10 PM CDT Emergency [facility] [address] [place] [address] Elvira Thayer PA Abscess of right lower extremity (Primary Dx); Neutropenia, unspecified type (HC) Discharge Disposition: Home Self Care 08/23/2023 Travel 08/12/2023 11:00 AM CDT Office Visit [facility] [address] [place] [address] Radha Edouard MD Follow Up (Pancytopenia (HC) [D61.818]//) 08/12/2023 Travel from Last 3 Months Immunizations Name [...] Info) Description 11/12/2023 9:00 AM CDT Appointment [facility] [address] [place] [address] 11/19/2023 11:15 AM CDT Office Visit [facility] [place] [facility] [address] [place] [phone] Lizeth Alarcon, HEALTH AND WELLNESS COACH [address] [place] [address] Health Maintenance Due Date Last Done Comments [...] AUTO DIFFERENTIAL STAT 08/23/2023 8:[address] CHEST ABDOMEN PELVIS WO STAT 01/03/2023 [...] MD LAB BILL ONLY Performing Organization Address [facility] de Phone Number [facility] [address] [place] [address], [place] * MYELOID NGS (LAB ONLY) (09/25/2023 9:10 AM CDT) Bone Marrow (Bone Marrow Aspirate) 09/25/2023 9:10 AM CDT 09/26/2023 3:40 PM CDT David Gordon MD PATHOLOGY/CYTOLOGY Performing Organization Address [facility] de Phone Number [facility] [address] [place] [address], [place] * BM/LB CHROM (09/25/2023 9:10 AM CDT) Bone Marrow (Bone Marrow Aspirate) 09/25/2023 9:10 AM CDT 09/26/2023 2:58 PM CDT David Gordon MD LABORATORY Performing Organization Address [facility] Co de Phone Number [facility] [address] [place] [address], [place] * BM WETLAB (09/25/2023 9:10 AM CDT) Bone Marrow (Bone Marrow Aspirate) 09/25/2023 9:10 AM CDT 09/26/2023 2:58 PM CDT David Gordon MD LABORATORY Performing Organization Address [facility] Co de Phone Number [facility] [address] [place] [address], [place] * OC (09/25/2023 9:10 AM CDT) Bone Marrow (Bone Marrow Aspirate) 09/25/2023 9:10 AM CDT 09/26/2023 2:58 PM CDT David Gordon MD LABORATORY Performing Organization Address [facility] Co de Phone Number [facility] [address] [place] [address], [place] * OB (09/25/2023 9:10 AM CDT) Bone Marrow (Bone Marrow Aspirate) 09/25/2023 9:10 AM CDT 09/26/2023 2:58 PM CDT David Gordon MD LABORATORY Performing Organization Address [facility] de Phone Number [facility] LABORATORY [address] [place] [address], [place] * CHROM TECH 2 (09/25/2023 9:10 AM CDT) Bone Marrow (Bone Marrow Aspirate) 09/25/2023 9:10 AM CDT 09/26/2023 2:58 PM CDT David Gordon MD LABORATORY Performing Organization Address [facility] Co de Phone Number [facility] [address] [place] [address], [place] * CHROM TECH 1 (09/25/2023 9:10 AM CDT) Bone Marrow (Bone Marrow Aspirate) 09/25/2023 9:10 AM CDT 09/26/2023 2:58 PM CDT David Gordon MD LABORATORY Performing Organization Address City/[facility] Co de Phone Number [facility] [address] [place] [address], [place] [address], [place] * BONE MARROW DIFFERENTIAL (09/25/2023 9:10 AM CDT) Bone Marrow (Bone Marrow Aspirate) 09/25/2023 9:10 AM CDT 09/29/2023 7:59 AM CDT David Gordon MD LABORATORY [facility] [address] [place] [address], [place] * CYTOGENETIC BONE MARROW STUDIES (09/25/2023 9:10 AM CDT) RFR Acute Myeloid Leukemia, myeloid neoplasm. 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 See comments. 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 ??Trisomy 8 is classified as an intermediate prognostic risk stratification category in AML (NCCN, 2024). Clinicopathologic correlation of these results is recommended. 10/02/2023 12:17 PM CDT [facility] ENTRAL LABORATORY COMMENTS A preliminary chromosome result was provided to Manny Alfredo MD on 09/29/2023. 10/02/2023 12:17 PM CDT [facility] ENTRAL LABORATORY LAB TEST DETAILS Fully Analyzed Metaphases: ??20 Partially Analyzed Metaphases: ??0 Full Karyotypes: ??3 10/02/2023 12:17 PM CDT [facility] ENTRAL LABORATORY SOURCE Bone Marrow (NaHep) [id number] B1-2 10/02/2023 12:17 PM CDT [facility] LABORAT[facility] METHODS Cultures used in chromosome analysis were non-stimulated. Chromosome analysis is performed on consecutive analyzable G-banded metaphases. 10/02/2023 12:17 PM CDT [facility] ENTRAL LABORATORY REFERENCES National Comprehensive Cancer Network. (2023). Acute Myeloid Leukemia (version 3.2023). Retrieved from https://www.nccn.o rg/professionals/p hysician_gls/pdf/a ml.pdf. Kenia Germain., Alexei Dominguez, Gurjit Pillai., Rachell Kebede., Alivia Nesbitt., Sravani Fortune., Isai Wilson. (Eds): WHO Classification of Tumours of Haematopoietic and Lymphoid Tissues. (Revised 4th edition) IARC: Michael 2017. 10/02/2023 12:17 PM CDT [facility] LABORATORY DISCLAIMER This test was developed and its performance characteristics determined by the [facility] Cytogenetics Laboratory. It has not been cleared [...] clinical laboratory testing. 10/02/2023 12:17 PM CDT [facility] [employer] ENTRNE LABORATORY Bone Marrow (Bone Marrow Aspirate) 09/25/2023 9:10 AM CDT 09/26/2023 2:58 PM CDT David Gordon MD LABORATORY [facility] [employer] [facility] LABORATORY [address] [place] [address], * BONE MARROW STUDY (09/25/2023 9:10 AM CDT) Case Report Bone Marrow Pathology Report ?Case: [id number] ? Authorizing Provider: ??David Gordon MD ?Collected: ? 09/25/2023 0910 ? Ordering Location: ? [facility] C[facility]TRAL [facility] ?Received: ?09/26/2023 0625 ? Pathologist: ? Manny Alfredo MD ? Specimens: ?? A) - Bone Marrow Aspirate ? B) - Bone Marrow Aspirate (Heparinized) ? C) - Bone Marrow Core Biopsy ? D) - Peripheral Blood ? 10/03/2023 8:51 AM CDT [facility] Amendment 10/03/2023 - Amendment to report [facility] Myeloid Targeted Next Generation Sequencing (NGS) results. Please see diagnosis and attached scanned report. Results are communicated with Dr. Edouard via Secure Chat on 10/03/[address] Alfredo. 10/03/2023 8:51 AM CDT [facility] Final Diagnosis BONE MARROW [...] mutations; see attached report 10/03/2023 8:51 AM CDT [facility] Amendment electronically signed by Manny [...] a defining cytogenetic abnormality.) 10/03/2023 8:51 AM [facility] Clinical Information Mr. Alba is a 68 y.o. 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 A bone marrow biopsy is performed for further characterization. 10/03/2023 8:51 AM T [facility] PROCEDURE A RIGHT lateral bone marrow biopsy and unilateral aspiration procedure is performed at [facility] on 09/25/23. VIVIANA Monterroso performed the procedure using an 8 gauge manual needle. The ordering physicians are Drs. Gordon and Silke. The specimen is inked orange. EVM 09/26/2023 10/03/2023 8:51 AM [facility] CBC and Differential HEMATOLOGY PARAMETERS Tested at: ??[facility] ? RESULTS ??EXPECTED VALUES WBC: ? 1.6 ?4.5-49w1489/cumm ?DECREASED RBC: ? 3.8 ?4.30-5.90 mil/cumm ??DECREASED HGB: ? 8.5 ?13.5-17.5 gm/di ? DECREASED HCT: ? 30.7 ? 37-53% ?DECREASED MCV: ? 81.0 ? 80-100 fl ? NORMOCYTIC MCH: ? 23.0 ? 26-34 pg ?DECREASED MCHC: ?28.0 ? 32-36 gm/dl ? HYPOCHROMIC RDW: ? 22.5 ? 11.5-15.5% ?ELEVATED PLT: ? 253 ?140-025s0098/uL ? Retic: ?? 7.91 ?0.5-1.5% ? ELEVATED Differential ?Tested at: ??[facility] ?Absolute (%) ?Expected (%) ?(x10*9/L) ? (x10*9/L) Neutrophils: ?0.5 (31.3) ?1.7-7.0 (42-72%) ??DECREASED Lymphocytes: ?0.6 (37.5) ?0.9-2.9 (20-44%) ??DECREASED Monocytes: ?0.4 (25) ? <0.9 (0-11%) ? Blasts: ? 0.1 (6.3) ? 0 ??(0%) ? BLASTS 10/03/2023 8:51 AM CDT [facility] Reticulocytes Retic: 7.91 0.5-1.5% ELEVATED 10/03/2023 8:51 AM CDT [facility] Bone Marrow Differential Blasts: ?23.6 ?0.2-1.5% ?ELEVATED Neutrophils & precursors: ??14.4 ?58.0-65.0% ?DECREASED Erythroid precursors: ?38 ?18.0-24.0% ?ELEVATED Lymphocytes: ? 21 ? 3.0-24.0% ? Monocytes: ? 2.2 ? 0.7-2.8% ? Plasma cells: ?0.8 ? 0.1-1.5% ? M:E Ratio: ? 14 : 38 10/03/2023 8:51 AM [facility] Microscopic Description The final diagnosis is based on microscopic examination of an appropriately stained blood smear. SPECIMENS EXAMINED: Peripheral blood Aspirate direct and concentrate smears: ??Adequate Particle crush smears Touch imprints Clot section Bone core trephine sample (decalcified): ??Adequate, 1.6 cm Bone core and clot section color: ??[place] PERIPHERAL BLOOD: The peripheral smear features support [...] Decreased Ringed sideroblasts: Absent 10/03/2023 8:51 AM [facility] Flow Cytometry Summary Diagnostic Acute [...] Trace positive markers: CD7/CD36 Negative markers: CD65/CD15/CD10/CD64 /SA059n/CD14/CD56/C D11b/CD16/CD2/CD5/C D235a/CD19/CD22(CYT O)/CD79a(CYTO)/TdT( n)/CD3(CYTO) Quality Assessment Viability (7-AAD): 62% Nucleated cells analyzed: 01867 Limit of detection (LOD): 0.1% These results and cytograms have been verified by Dr. Alfredo. This test was developed and its performance characteristics verified by [facility]. It has not been cleared or approved [...] 09/26/2023 3:50 PM 10/03/2023 8:51 AM CDT [facility] Cytogenetics Summary Cytogenetic testing has been ordered and will be reported separately. 10/03/2023 8:51 AM CDT [facility] Other Testing Immunostains were performed on the bone core biopsy. CD34 (blast marker) (manual morphometry: ??25% 10/03/2023 8:51 AM CDT [facility] CENTRAL LABORATORY Additional Information Interpreted at [facility] Central Laboratory - [address], [place] [address] Immunohistochemistr y controls were reviewed and approved by the pathologist during this examination. 10/03/2023 8:51 AM CDT [facility] CENTRAL LABORATORY Bone Marrow (Bone Marrow Aspirate) [...] 6:25 AM CDT David Gordon MD LABORATORY [facility] [address] [place] [address], * PERIPHERAL BLD MORPHOLOGY (09/10/2023 10:34 AM CDT) Case Report Special Hematology Report ? Case: [id number] ? Authorizing Provider: ??David Gordon MD ?Collected: ? 09/10/20234 ? Ordering Location: ? [facility] CENTRAL LAB ?Received: ?09/10/20232124 ? Pathologist: ? Rolando Retana MD ? Specimen: ?Peripheral Blood ? 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 1-2% circulating blasts 2. Moderate microcytic hypochromic anemia with reticulocytosis (6.7%) 3. 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 Mild absolute monocytosis 5. See comment 09/12/2023 4:51 PM CDT [facility]-C ENTRAL LABORATORY Comment Since the last described peripheral blood morphology 08/06/2023 ([id number]), the blast count is roughly unchanged. The [...] also reviewed by Mari Armijo MT, MS ([facility]). 09/12/2023 4:51 PM CDT [facility]-C ENTRAL LABORATORY Clinical Information The patient is a 60-year-old male. Pertinent clinical information: Anemia. Per EPIC: She visited the ER 08/23/2023 for an abscess and neutropenia. ??Additional history includes hypertension. His most recent peripheral blood morphology 08/06/2023 ([id number]) showed changes consistent with a myeloid neoplasm with 2% circulating blasts, moderate normocytic anemia, and leukopenia with marked absolute neutropenia with dysgranulopoiesis. 08/23/23 20:13 CREATININE: 1.25 (H) eGFR: ? 63 (L) 09/12/2023 4:51 PM CDT [facility] CBC and Differential HEMATOLOGY PARAMETERS Tested at: ??[facility] Laboratory-Central Laboratory ? RESULTS ??EXPECTED VALUES WBC: ? 3.3 ?4.5-12i9227/cumm ?DECREASED RBC: ? 3.65 ? 4.30-5.90 mil/cumm ??DECREASED HGB: ? 8.1 ?13.5-17.5 gm/di ? DECREASED HCT: ? 28.8 ? 37-53% ?DECREASED MCV: ? 79.0 ? 80-100 fl ? MICROCYTIC MCH: ? 22.0 ? 26-34 pg ?DECREASED MCHC: ?28.0 ? 32-36 gm/dl ? HYPOCHROMIC RDW: ? 20.3 ? 11.5-15.5% ?ELEVATED PLT: ? 310 ?140-120o3931/uL ? Retic: ?? 6.7 ?0.5-1.5% ?ELEVATED Differential ?Absolute (%) ?Expected (%) ?(x10*9/L) ? (x10*9/L) Neutrophils: ?1.4 (42.6) ?1.7-7.0 (42-72%) ??DECREASED Lymphocytes: ?0.4 (12.2) ?0.9-2.9 (20-44%) ??DECREASED Monocytes: ?1.2 (36.5) ? <0.9 (0-11%) ? ELEVATED Eosinophils: ?0.2 (6.1) ?<0.5 (0-2%) ? 09/12/2023 4:51 PM CDT [facility] Microscopic Description The final diagnosis is based on microscopic examination of an appropriately stained blood smear. 09/12/2023 4:51 PM CDT [facility] Additional Information Interpreted at [facility] Laboratory - [address] [facility] [address], [place] [address] 09/12/2023 4:51 PM CDT [facility] Blood (Peripheral Blood) 09/10/2023 10:34 AM CDT 09/10/2023 9:25 PM CDT David Gordon MD HEMATOLOGY Performing Organization Address City/State/[facility] Co de Phone Number [facility] LABORATORY [address] [place] [address], * PATH TISSUE EXAM (08/29/2023 8:40 AM CDT) Case Report Pathology Report ?Case: [id number] ? Authorizing Provider: ??Eloina Paniagua MD ?Collected: ? 08/29/2023 0840 ? Ordering Location: ? [facility] CENTRAL LAB ?Received: ?08/29/2023 1517 ? Pathologist: ? Georgie Rocha MD ? Specimen: ?Right Leg, Right leg chronic wound necrotic tissue ? 09/03/2023 3:31 PM CDT [facility] Final Diagnosis SKIN AND SOFT TISSUE, RIGHT LEG CHRONIC WOUND, EXCISION: 1. ??Ulcer bed with reactive epithelial hyperplasia, dense dermal mixed inflammatory infiltrate and prominent fibrosis 2. ??No evidence of vasculitis or malignancy right leg 09/03/2023 3:31 PM CDT [facility] Clinical Information Right leg chronic wound necrotic tissue. 09/03/2023 3:31 PM T [facility] Gross Description A) Received in formalin, labeled with the patient's name and right leg chronic wound necrotic tissue, is a portion of skin excision measuring 11.5 x 5.5 cm, excised to 1.0 cm deep. The skin surface is entirely dark brown mummified and necrotic. The resection margin is inked blue. The cut surface shows red-brown skeletal. No solid mass is identified. [employer] Att[employer] sections are submitted in 2 cassettes. TTP 08/29/2023 09/03/2023 3:31 PM T [facility] EN[facility]AL LAB[facility]ORY Microscopic Description The final diagnosis is based on microscopic examination of appropriate sections of all specimens. The presence of blue ink is confirmed on tissue sections. 09/03/2023 3:31 PM CDT [facility] Additional Information Interpreted at [facility] Central Laboratory - [address], [place] [address] 09/03/2023 3:31 PM T [facility] Other (Right Leg) 08/29/2023 8:40 AM CDT 08/29/2023 3:17 PM CDT Eloina Paniagua MD PATHOLOGY/CYTOLOGY [facility] [address] [place] [address], * SCAN-CT INTERPRETATION (08/27/2023 12:00 AM CDT) [...] SEDIMENTATION RATE (08/23/2023 8:13 PM CDT) Pathologist [facility] SEDIMENTATION RATE 51(H) <20 mm/hr 2023 8:38 PM CDT [facility] Blood BLOOD SPECIMEN / Unknown IV Start / Unknown 08/23/2023 8:13 PM CDT 08/23/2023 8:16 PM CDT Elvira MICHELLE HEMATOLOGY [facility] [address] [place] [address] * (ABNORMAL) CBC WITH AUTO DIFFERENTIAL (08/23/2023 8:13 PM CDT) Pathologist [facility] WHITE BLOOD COUNT 1.9(L) 4.5 - 11.0 thou/cu mm 08/23/2023 9:06 PM CDT [facility] RED BLOOD COUNT 3.30(L) 4.30 - 5.90 mil/cu mm 08/23/2023 9:06 PM T [facility] HEMOGLOBIN 7.4(L) 13.5 - 17.5 g/dL 08/23/2023 9:06 PM T [facility] HEMATOCRIT 26.5(L) 37.0 - 53.0 % 08/23/2023 9:06 PM T [facility] MCV 80 80 - 100 fL 08/23/2023 9:06 PM [facility] MCH 22.4(L) 26.0 - 34.0 pg 08/23/2023 9:06 PM [facility] MCHC 27.9(L) 32.0 - 36.0 g/dL 08/23/2023 9:06 PM [facility] RDW 19.3(H) 11.5 - 15.5 % 08/23/2023 9:06 PM [facility] PLATELET COUNT 272 140 - 440 thou/cu mm 08/23/2023 9:06 PM [facility] MPV 10.0 6.5 - 11.0 fL 08/23/2023 9:06 PM [facility] Blood BLOOD SPECIMEN / Unknown IV Start / Unknown 08/23/2023 8:13 PM CDT 08/23/2023 8:16 PM CDT Elvira MICHELLE HEMATOLOGY [facility] [address] [facility] [place] [address] * (ABNORMAL) RED CELL MORPHOLOGY (08/23/2023 8:13 PM CDT) ELLIPTOCYTES Moderate 08/23/2023 9:06 PM T [facility] POLYCHROMASIA Moderate 08/23/2023 9:06 PM [facility] RBC COMMENT Present(A) RBC morphology appears normal, RBC morphology within normal limits for newborns. 08/23/2023 9:06 PM CDT [facility] LARGE PLATELETS Present 9:06 PM CDT [facility] Blood BLOOD SPECIMEN / Unknown IV Start / Unknown 08/23/2023 8:13 PM CDT 08/23/2023 8:16 PM CDT Elvira MICHELLE HEMATOLOGY Performing Organization Address [facility]/ZIP Co de Phone Number [facility] [address] [place] [address] * PLATELET ESTIMATE (08/23/2023 8:13 PM CDT) Pathologist [facility] PLATELET ESTIMATE Adequate Adequate, No estimate 08/23/2023 9:06 PM CDT [facility] Blood BLOOD SPECIMEN / Unknown IV Start / Unknown 08/23/2023 8:13 PM CDT 08/23/2023 8:16 PM CDT Elvira MICHELLE HEMATOLOGY Performing Organization Address [facility] Co de Phone Number [facility] [address] [place] [address] * LACTATE VENOUS (08/23/2023 8:13 PM CDT) LACTATE,VENOUS 0.5 0.5 - 2.0 mmol/L 08/23/2023 8:40 PM CDT [facility] Blood BLOOD SPECIMEN / Unknown IV Start / Unknown 08/23/2023 8:13 PM CDT 08/23/2023 8:16 PM CDT Elvira MICHELLE CHEMISTRY Performing Organization Address [facility] Co de Phone Number [facility] [address] [place] [address] * (ABNORMAL) MANUAL DIFFERENTIAL (08/23/2023 8:13 PM CDT) % NEUTROPHILS 20.0 % 08/23/2023 9:06 PM [facility] % LYMPHOCYTES 48.0 % 08/23/2023 9:06 PM T [facility] % MONOCYTES 31.0 % 08/23/2023 9:06 PM T [facility] % EOSINOPHILS 1.0 % 08/23/2023 9:06 PM [facility] % BASOPHILS 0.0 % 08/23/2023 9:06 PM T [facility] NEUTROPHILS ABSOLUTE 0.4(L) 1.7 - 7.0 thou/cu mm 08/23/2023 9:06 PM T [facility] LYMPHOCYTES ABSOLUTE 0.9 0.9 - 2.9 thou/cu mm 08/23/2023 9:06 PM T [facility] MONOCYTES ABSOLUTE 0.6 <0.9 thou/cu mm 08/23/2023 9:06 PM [facility] EOSINOPHILS ABSOLUTE 0.0 <0.5 thou/cu mm 08/23/2023 9:06 PM [facility] BASOPHILS ABSOLUTE 0.0 <0.3 thou/cu mm 08/23/2023 9:06 PM [facility] Blood BLOOD SPECIMEN / Unknown IV Start / Unknown 08/23/2023 8:13 PM CDT 08/23/2023 8:16 PM CDT Elvira MICHELLE HEMATOLOGY Performing Organization Address [facility] Co de Phone Number [facility] [address] [place] [address] * (ABNORMAL) C-REACTIVE PROTEIN (08/23/2023 8:13 PM CDT) C-REACTIVE PROTEIN 2.8(H) <0.5 mg/dL 08/23/2023 8:41 PM CDT [facility] Blood BLOOD SPECIMEN / Unknown IV Start / Unknown 08/23/2023 8:13 PM CDT 08/23/2023 8:16 PM CDT Elvira MICHELLE CHEMISTRY [facility] [address] [place] [address] * (ABNORMAL) BASIC METABOLIC PANEL (08/23/2023 8:13 PM CDT) SODIUM 133(L) 136 - 145 mmol/L 08/23/2023 8:41 PM [facility] POTASSIUM 4.0 3.5 - 5.1 mmol/L 08/23/2023 8:41 PM [facility] CHLORIDE 104 98 - 107 mmol/L 08/23/2023 8:41 PM [facility] CO2,TOTAL 22 22 - 29 mmol/L 08/23/2023 8:41 PM [facility] ANION GAP 7 5 - 18 08/23/2023 8:41 PM [facility] GLUCOSE 80 70 - 99 mg/dL 08/23/2023 8:41 PM [facility] CALCIUM 8.4(L) 8.8 - 10.2 mg/dL 08/23/2023 8:41 PM [facility] BUN 14 8 - 23 mg/dL 08/23/2023 8:41 PM [facility] CREATININE 1.25(H) 0.70 - 1.20 mg/dL 08/23/2023 8:41 PM [facility] BUN/CREAT RATIO 11 10 - 20 8:41 PM [facility] eGFR 63(L) >90 mL/min/1.7 3m2 08/23/2023 8:41 PM [facility] Comment:As of 2021, eG FR [...] 08/23/2023 8:16 PM CDT Elvira MICHELLE CHEMISTRY [facility] [address] [place] [address] * CT CHEST ABDOMEN PELVIS WO (01/03/2023 [...] Reactive Non Reactive 10/11/2022 12:[address] [facility] ([facility]) Blood BLOOD SPECIMEN / Unknown Venipuncture / Unknown 10/09/2022 9:06 AM CDT 10/09/2022 9:06 AM CDT Narrative [facility] ([facility]) - 10/11/2022 12:08 PM CDT Performed at: ??01 - [address] ??[id number] Boilermaker'S Assistant: Zane Rebolledo MD, Phone: ??[phone] Radha Edouard MD LABORATORY [facility] ([facility]) [address] [place] [address], [place] * CT CHEST ABDOMEN PELVIS W [...] - 199 mg/dL 09/09/2022 12:53 PM T [facility] TRIGLYCERIDES 77 <150 mg/dL 09/09/2022 12:53 PM T [facility] HDL CHOLESTEROL 34(L) >40 mg/dL 12:53 PM T [facility] NON-HDL CHOLESTEROL 115 <145 mg/dl 09/09/2022 12:53 PM T [facility] CHOL/HDL RATIO 4.38 <4.50 09/09/2022 12:53 PM T [facility] LDL CHOLESTEROL 100 <=130 mg/dL 09/09/2022 12:53 PM [facility] VLDL CHOLESTEROL 15 <=30 mg/dL 09/09/2022 12:53 PM T [facility] PROVIDER ORDERED STATUS RANDOM 09/09/2022 12:53 PM T [facility] Blood BLOOD SPECIMEN / Unknown Butterfly / Unknown 09/09/2022 12:06 PM CDT 09/09/2022 12:07 PM CDT David Ambrocio MD CHEMISTRY [facility] [address] [place] [id number] from Last 3 Months or Most Recently [...] Discussion: Reviewed Preferences wit h Care Teams Tracer Powder Blender Relationship Specialty Start Date End Date David Ambrocio MD [address] [place] [address] PCP - General Family Practice 11/27/22 Elvira Morin, RN [address], [place] [phone] Nurse Navigator - Oncology Registered Nurse 10/18/22 Radha Edouard MD [address] [place] [address] Medical Oncologist Hematology and Oncology 11/21/22 Lizeth Alarcon, HEALTH AND WELLNESS COACH [address], [place] [phone] Nurse Practitioner Hematology and Oncology 11/21/22 Segundo, KYUNG Hong [address], [place] [phone] Catalogue Librarian 01/06/[address] [address] 01/21/23
== END 2023-11-07 14:01 | disposition home or self-care (01) ==
LOC: WOUND 11-11 12:09
PROVIDERS: PCP Internal Medicine; Visit Provider Nurse Practitioner Family
DX: I87.311 Chronic venous hypertension (idiopathic) with ulcer of right lower extremity (principal); L97.212 Non-pressure chronic ulcer of right calf with fat layer exposed
CPT/HCPCS: 11042

== ENCOUNTER 2023-11-11 14:40 | Outpatient (CLI) | payer MEDICARE, BC, SELFPAY ==
--- OUTSIDE RECORDS SUMMARY | 2023-11-11 14:42 | XMS_ITS | Clinical Summary ---
Author Organization [facility] Address [place], [place] [address] Care Team Providers Care Steamer Gum Candy Name Role Phone Elvira Morin Stefano RN Unavailable Radha Edouard MD Unavailable Lizeth Alarcon CLINICAL PRACTITIONER Unavailable David Ambrocio MD Primary Care Provider Jaylon RaymondW Unavailable [phone] Allergies Active Allergy Reactions [...] Department Care Team Description 10/28/2023 Orders Only [facility] Scanner 1 scan: (1-Ord) INCOMING RECORDS-CT, [facility], 10/28/2023 10/28/2023 Orders Only [facility] Scanner 1 scan: (1-Ord) INCOMING RECORDS-LABS, [facility], 10/28/2023 10/28/2023 Orders Only [facility] Scanner 1 scan: (1-Ord) INCOMING RECORDS-LABS, [facility], 10/28/2023 10/27/2023 Telephone [facility] [address] [address] [facility] Cancer Referral (AML) 09/25/2023 Lab Requisition L CENTRAL LAB [phone] David Gordon MD 09/10/2023 Lab Requisition [facility]AL [facility] [phone] David Gordon MD 08/29/2023 Lab Requisition [facility] C[facility]AL LAB [phone] Eloina Paniagua MD 08/27/2023 Orders Only [facility] Scanner 1 scan: (1-Ord) KEN, LOWER LEG RT W/COM, 08/27/2023 08/23/2023 7:26 PM CDT - 08/23/2023 11:10 PM CDT Emergency [facility] [address] [place] [address] Elvira Thayer PA Abscess of right lower extremity (Primary Dx); Neutropenia, unspecified type (HC) Discharge Disposition: Home Self Care 08/23/2023 Travel 08/12/2023 11:00 AM CDT Office Visit [facility] [address] [place] [address] Radha Edouard MD Follow Up (Pancytopenia (HC) [...] Info) Description 11/12/2023 9:00 AM CDT Appointment [facility] [address] [place] [address] 11/19/2023 11:15 AM CDT Office Visit [facility] [address] [place] [phone] Lizeth Alarcon, CLINICAL PRACTITIONER [address] [place] [address] Health Maintenance Due Date Last Done Comments [...] MD LAB BILL ONLY Performing Organization Address [facility] de Phone Number [facility] [address] [place] [address], [place] * MYELOID NGS (LAB ONLY) (09/25/2023 9:10 AM CDT) Bone Marrow (Bone Marrow Aspirate) 09/25/2023 9:10 AM CDT 09/26/2023 3:40 PM CDT David Gordon MD PATHOLOGY/CYTOLOGY Performing Organization Address [facility] de Phone Number [facility] [address] [place] [address], [place] * BM/LB CHROM (09/25/2023 9:10 AM CDT) Bone Marrow (Bone Marrow Aspirate) 09/25/2023 9:10 AM CDT 09/26/2023 2:58 PM CDT David Gordon MD LABORATORY Performing Organization Address [facility] Co de Phone Number [facility] [address] [place] [address], [place] * BM WETLAB (09/25/2023 9:10 AM CDT) Bone Marrow (Bone Marrow Aspirate) 09/25/2023 9:10 AM CDT 09/26/2023 2:58 PM CDT David Gordon MD LABORATORY Performing Organization Address [facility] Co de Phone Number [facility] SEC WatchCENTRAL LABORATORY [address] [place] [address], [place] * OC (09/25/2023 9:10 AM CDT) Bone Marrow (Bone Marrow Aspirate) 09/25/2023 9:10 AM CDT 09/26/2023 2:58 PM CDT David Gordon MD LABORATORY Performing Organization Address [facility] Co de Phone Number [facility] [address] [place] [address], [place] * OB (09/25/2023 9:10 AM CDT) Bone Marrow (Bone Marrow Aspirate) 09/25/2023 9:10 AM CDT 09/26/2023 2:58 PM CDT David Gordon MD LABORATORY Performing Organization Address [facility] de Phone Number [facility] [employer] LABORATORY [address] [place] [address], [place] * CHROM TECH 2 (09/25/2023 9:10 AM CDT) Bone Marrow (Bone Marrow Aspirate) 09/25/2023 9:10 AM CDT 09/26/2023 2:58 PM CDT David Gordon MD LABORATORY Performing Organization Address [facility] Co de Phone Number [facility]ong[facility] [address] [place] [address], [place] * CHROM TECH 1 (09/25/2023 9:10 AM CDT) Bone Marrow (Bone Marrow Aspirate) 09/25/2023 9:10 AM CDT 09/26/2023 2:58 PM CDT David Gordon MD LABORATORY Performing Organization Address City/[facility] Co de Phone Number [facility] [address] [place] [address], [place] [address], [place] * BONE MARROW DIFFERENTIAL (09/25/2023 9:10 AM CDT) Bone Marrow (Bone Marrow Aspirate) 09/25/2023 9:10 AM CDT 09/29/2023 7:59 AM CDT David Gordon MD [facility]ATORY [facility] [address] [place] [address], [place] * CYTOGENETIC BONE MARROW STUDIES (09/25/2023 9:10 AM CDT) RFR Acute Myeloid Leukemia, myeloid neoplasm. 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 See comments. 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 ??Trisomy 8 is classified as an intermediate prognostic risk stratification category in AML (NCCN, 2024). Clinicopathologic correlation of these results is recommended. 10/02/2023 12:17 PM CDT [facility] COMMENTS A preliminary chromosome result was provided to Manny Alfredo MD on 09/29/2023. 10/02/2023 12:17 PM CDT [facility] LAB TEST DETAILS Fully Analyzed Metaphases: ??20 Partially Analyzed Metaphases: ??0 Full Karyotypes: ??3 10/02/2023 12:17 PM CDT [facility] SOURCE Bone Marrow (NaHep) [id number] B1-2 10/02/2023 12:17 PM CDT [facility] METHODS Cultures used in chromosome analysis were non-stimulated. Chromosome analysis is performed on consecutive analyzable G-banded metaphases. 10/02/2023 12:17 PM CDT [facility] REFERENCES National Comprehensive Cancer Network. (2023). Acute Myeloid Leukemia (version 3.2023). Retrieved from https://www.nccn.o rg/professionals/p hysician_gls/pdf/a ml.pdf. Kenia Germain., Alexei Dominguez, Gurjit Pillai., Rachell Kebede., Alivia Nesbitt., Sravani Fortune., Isai Wilson. (Eds): WHO Classification of Tumours of Haematopoietic and Lymphoid Tissues. (Revised 4th edition) IARC: Michael 2017. 10/02/2023 12:17 PM CDT [facility] DISCLAIMER This test was developed and its performance characteristics determined by the [facility] Cytogenetics Laboratory. It has not been [...] clinical laboratory testing. 10/02/2023 12:17 PM CDT [facility] [employer] [id number]-5 [facility] Bone Marrow (Bone Marrow Aspirate) 09/25/2023 9:10 AM CDT 09/26/2023 2:58 PM CDT David Gordon MD LABORATORY [facility] [employer] [id number] [facility] [address] [place] [address], * BONE MARROW STUDY (09/25/2023 9:10 AM CDT) Case Report Bone Marrow Pathology Report ?Case: [id number] ? Authorizing Provider: ??David Gordon MD ?Collected: ? 09/25/2023 0910 ? Ordering Location: ? [facility] CENTRAL LAB ?Received: ?09/26/2023 0625 ? Pathologist: ? Manny Alfredo MD ? Specimens: ?? A) - Bone Marrow Aspirate ? B) - Bone Marrow Aspirate (Heparinized) ? C) - Bone Marrow Core Biopsy ? D) - Peripheral Blood ? 10/03/2023 8:51 AM CDT [facility] Amendment 10/03/2023 - Amendment to report [facility] Myeloid Targeted Next Generation Sequencing (NGS) results. Please see diagnosis and attached scanned report. Results are communicated with Dr. Edouard via Secure Chat on 10/03/[address] Alfredo. 10/03/2023 8:51 AM CDT [facility]AT[facility] Final Diagnosis BONE MARROW [...] see attached report 10/03/2023 8:51 AM CDT [facility] C[facility]AL LABORAT[facility] Amendment electronically signed by [...] a defining cytogenetic abnormality.) 10/03/2023 8:51 AM [facility] Clinical Information Mr. Alba is a 68 y.o. 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 A bone marrow biopsy is performed for further characterization. 10/03/2023 8:51 AM T [facility] PROCEDURE A RIGHT lateral bone marrow biopsy and unilateral aspiration procedure is performed at [facility] on 09/25/23. VIVIANA Monterroso performed the procedure using an 8 gauge manual needle. The ordering physicians are Drs. Gordon and Silke. The specimen is inked orange. EVM 09/26/2023 10/03/2023 8:51 AM [facility] CBC and Differential HEMATOLOGY PARAMETERS Tested at: ??[facility] ? RESULTS ??EXPECTED VALUES WBC: ? 1.6 ?4.5-27j9347/cumm ?DECREASED RBC: ? 3.8 ?4.30-5.90 mil/cumm ??DECREASED HGB: ? 8.5 ?13.5-17.5 gm/di ? DECREASED HCT: ? 30.7 ? 37-53% ?DECREASED MCV: ? 81.0 ? 80-100 fl ? NORMOCYTIC MCH: ? 23.0 ? 26-34 pg ?DECREASED MCHC: ?28.0 ? 32-36 gm/dl ? HYPOCHROMIC RDW: ? 22.5 ? 11.5-15.5% ?ELEVATED PLT: ? 253 ?140-165y5986/uL ? Retic: ?? 7.91 ?0.5-1.5% ? ELEVATED Differential ?Tested at: ??[facility] ?Absolute (%) ?Expected (%) ?(x10*9/L) ? (x10*9/L) Neutrophils: ?0.5 (31.3) ?1.7-7.0 (42-72%) ??DECREASED Lymphocytes: ?0.6 (37.5) ?0.9-2.9 (20-44%) ??DECREASED Monocytes: ?0.4 (25) ? <0.9 (0-11%) ? Blasts: ? 0.1 (6.3) ? 0 ??(0%) ? BLASTS 10/03/2023 8:51 AM CDT [facility] Reticulocytes Retic: 7.91 0.5-1.5% ELEVATED 10/03/2023 8:51 AM CDT [facility] Bone Marrow Differential Blasts: ?23.6 ?0.2-1.5% ?ELEVATED Neutrophils & precursors: ??14.4 ?58.0-65.0% ?DECREASED Erythroid precursors: ?38 ?18.0-24.0% ?ELEVATED Lymphocytes: ? 21 ? 3.0-24.0% ? Monocytes: ? 2.2 ? 0.7-2.8% ? Plasma cells: ?0.8 ? 0.1-1.5% ? M:E Ratio: ? 14 : 38 10/03/2023 8:51 AM [facility] Microscopic Description The final diagnosis is based on microscopic examination of an appropriately stained blood smear. SPECIMENS EXAMINED: Peripheral blood Aspirate direct and concentrate smears: ??Adequate Particle crush smears Touch imprints Clot section Bone core trephine sample (decalcified): ??Adequate, 1.6 cm Bone core and clot section color: ??[place] PERIPHERAL BLOOD: The peripheral smear features support [...] Decreased Ringed sideroblasts: Absent 10/03/2023 8:51 AM [facility] Flow Cytometry Summary Diagnostic Acute [...] Trace positive markers: CD7/CD36 Negative markers: CD65/CD15/CD10/CD64 /SV936o/CD14/CD56/C D11b/CD16/CD2/CD5/C D235a/CD19/CD22(CYT O)/CD79a(CYTO)/TdT( n)/CD3(CYTO) Quality Assessment Viability (7-AAD): 62% Nucleated cells analyzed: 36892 Limit of detection (LOD): 0.1% These results and cytograms have been verified by Dr. Alfredo. This test was developed and its performance characteristics verified by [facility]. It has not been cleared or approved [...] 09/26/2023 3:50 PM 10/03/2023 8:51 AM CDT [facility] Cytogenetics Summary Cytogenetic testing has been ordered and will be reported separately. 10/03/2023 8:51 AM CDT [facility] Other Testing Immunostains were performed on the bone core biopsy. CD34 (blast marker) (manual morphometry: ??25% 10/03/2023 8:51 AM CDT [facility] CENTRAL LABORATORY Additional Information Interpreted at [facility] Central Laboratory - [address], [place] [address] Immunohistochemistr y controls were reviewed and approved by the pathologist during this examination. 10/03/2023 8:51 AM CDT [facility] C[facility]AL LAB[facility]ATORY Bone Marrow (Bone Marrow Aspirate) [...] 6:25 AM CDT David Gordon MD LABORATORY [facility] [address] [place] [address], * PERIPHERAL BLD MORPHOLOGY (09/10/2023 10:34 AM CDT) Case Report Special Hematology Report ? Case: [id number] ? Authorizing Provider: ??David Gordon MD ?Collected: ? 09/10/20234 ? Ordering Location: ? [facility] C[facility]TRAL LAB ?Received: ?09/10/20232124 ? Pathologist: ? Rolando Retana MD ? Specimen: ?Peripheral Blood ? 09/12/2023 4:51 PM CDT [facility] Final Diagnosis PERIPHERAL BLOOD: Continued changes consistent with a myeloid neoplasm 1. 1-2% circulating blasts 2. Moderate microcytic hypochromic anemia with reticulocytosis (6.7%) 3. 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 Mild absolute monocytosis 5. See comment 09/12/2023 4:51 PM CDT [facility] Comment Since the last described peripheral blood morphology 08/06/2023 ([id number]), the blast count is roughly unchanged. The [...] [facility]). 09/12/2023 4:51 PM CDT [facility] Clinical Information The patient is a 60-year-old male. Pertinent clinical information: Anemia. Per EPIC: She visited the ER 08/23/2023 for an abscess and neutropenia. ??Additional history includes hypertension. His most recent peripheral blood morphology 08/06/2023 ([id number]) showed changes consistent with a myeloid neoplasm with 2% circulating blasts, moderate normocytic anemia, and leukopenia with marked absolute neutropenia with dysgranulopoiesis. 08/23/23 20:13 CREATININE: 1.25 (H) eGFR: ? 63 (L) 09/12/2023 4:51 PM CDT [facility]- EN[facility]AL LABORAT[facility] CBC and Differential HEMATOLOGY PARAMETERS Tested at: ??[facility] ? RESULTS ??EXPECTED VALUES WBC: ? 3.3 ?4.5-28z8299/cumm ?DECREASED RBC: ? 3.65 ? 4.30-5.90 mil/cumm ??DECREASED HGB: ? 8.1 ?13.5-17.5 gm/di ? DECREASED HCT: ? 28.8 ? 37-53% ?DECREASED MCV: ? 79.0 ? 80-100 fl ? MICROCYTIC MCH: ? 22.0 ? 26-34 pg ?DECREASED MCHC: ?28.0 ? 32-36 gm/dl ? HYPOCHROMIC RDW: ? 20.3 ? 11.5-15.5% ?ELEVATED PLT: ? 310 ?140-185n9985/uL ? Retic: ?? 6.7 ?0.5-1.5% ?ELEVATED Differential ?Absolute (%) ?Expected (%) ?(x10*9/L) ? (x10*9/L) Neutrophils: ?1.4 (42.6) ?1.7-7.0 (42-72%) ??DECREASED Lymphocytes: ?0.4 (12.2) ?0.9-2.9 (20-44%) ??DECREASED Monocytes: ?1.2 (36.5) ? <0.9 (0-11%) ? ELEVATED Eosinophils: ?0.2 (6.1) ?<0.5 (0-2%) ? 09/12/2023 4:51 PM CDT [facility] Microscopic Description The final diagnosis is based on microscopic examination of an appropriately stained blood smear. 09/12/2023 4:51 PM CDT [facility] Additional Information Interpreted at [facility] - [address] [facility] [address], [place] [address] 09/12/2023 4:51 PM CDT [facility] Blood (Peripheral Blood) 09/10/2023 10:34 AM CDT 09/10/2023 9:25 PM CDT David Gordon MD HEMATOLOGY Performing Organization Address City/State/[facility] Co de Phone Number [facility] [address] [place] [address], * PATH TISSUE EXAM (08/29/2023 8:40 AM CDT) Case Report Pathology Report ?Case: [id number] ? Authorizing Provider: ??Eloina Paniagua MD ?Collected: ? 08/29/2023 0840 ? Ordering Location: ? [facility] CENTRAL LAB ?Received: ?08/29/2023 1517 ? Pathologist: ? Georgie Rocha MD ? Specimen: ?Right Leg, Right leg chronic wound necrotic tissue ? 09/03/2023 3:31 PM CDT [facility] Final Diagnosis SKIN AND SOFT TISSUE, RIGHT LEG CHRONIC WOUND, EXCISION: 1. ??Ulcer bed with reactive epithelial hyperplasia, dense dermal mixed inflammatory infiltrate and prominent fibrosis 2. ??No evidence of vasculitis or malignancy right leg 09/03/2023 3:31 PM CDT [facility] Clinical Information Right leg chronic wound necrotic tissue. 09/03/2023 3:31 PM T [facility] Gross Description A) Received [...] red-brown skeletal. No solid mass is identified. Plastic Surgery Manager sections are submitted in 2 cassettes. TTP 08/29/2023 09/03/2023 3:31 PM T [facility] EN[facility]AL [facility]AT[facility] Microscopic Description The final diagnosis is based on microscopic examination of appropriate sections of all specimens. The presence of blue ink is confirmed on tissue sections. 09/03/2023 3:31 PM CDT [facility] Additional Information Interpreted at [facility] Central Laboratory - [address], [place] [address] 09/03/2023 3:31 PM T [facility] Other (Right Leg) 08/29/2023 8:40 AM CDT 08/29/2023 3:17 PM CDT Eloina Paniagua MD PATHOLOGY/CYTOLOGY [facility] [address] [place] [address], * SCAN-CT INTERPRETATION (08/27/2023 12:00 AM CDT) [...] 51(H) <20 mm/hr 2023 8:38 PM CDT [facility] Blood BLOOD SPECIMEN / Unknown IV Start / Unknown 08/23/2023 8:13 PM CDT 08/23/2023 8:16 PM CDT Elvira MICHELLE HEMATOLOGY [facility] [address] [place] [address] * (ABNORMAL) CBC WITH AUTO DIFFERENTIAL (08/23/2023 8:13 PM CDT) Pathologist [facility] WHITE BLOOD COUNT 1.9(L) 4.5 - 11.0 thou/cu mm 08/23/2023 9:06 PM CDT [facility] RED BLOOD COUNT 3.30(L) 4.30 - 5.90 mil/cu mm 08/23/2023 9:06 PM T [facility] HEMOGLOBIN 7.4(L) 13.5 - 17.5 g/dL 08/23/2023 9:06 PM T [facility] HEMATOCRIT 26.5(L) 37.0 - 53.0 % 08/23/2023 9:06 PM T [facility] MCV 80 80 - 100 fL 08/23/2023 9:[address] [facility] MCH 22.4(L) 26.0 - 34.0 pg 08/23/2023 9:[address] [facility] MCHC 27.9(L) 32.0 - 36.0 g/dL 08/23/2023 9:[address] [facility] RDW 19.3(H) 11.5 - 15.5 % 08/23/2023 9:[address] [facility] PLATELET COUNT 272 140 - 440 thou/cu mm 08/23/2023 9:[address] [facility] MPV 10.0 6.5 - 11.0 fL 08/23/2023 9:[address] [facility] Blood BLOOD SPECIMEN / Unknown IV Start / Unknown 08/23/2023 8:13 PM CDT 08/23/2023 8:16 PM CDT Elvira MICHELLE HEMATOLOGY [facility] [address] [facility] [place] [address] * (ABNORMAL) RED CELL MORPHOLOGY (08/23/2023 8:13 PM CDT) ELLIPTOCYTES Moderate 08/23/2023 9:06 PM T [facility] POLYCHROMASIA Moderate 08/23/2023 9:[address] [facility] RBC COMMENT Present(A) RBC morphology appears normal, RBC morphology within normal limits for newborns. 08/23/2023 9:06 PM CDT [facility] LARGE PLATELETS Present 9:06 PM CDT [facility] Blood BLOOD SPECIMEN / Unknown IV Start / Unknown 08/23/2023 8:13 PM CDT 08/23/2023 8:16 PM CDT Elvira MICHELLE HEMATOLOGY Performing Organization Address [facility]/ZIP Co de Phone Number [facility] [address] [place] [address] * PLATELET ESTIMATE (08/23/2023 8:13 PM CDT) Pathologist [facility] PLATELET ESTIMATE Adequate Adequate, No estimate 08/23/2023 9:06 PM CDT [facility] Blood BLOOD SPECIMEN / Unknown IV Start / Unknown 08/23/2023 8:13 PM CDT 08/23/2023 8:16 PM CDT Elvira MICHELLE HEMATOLOGY Performing Organization Address [facility] Co de Phone Number [facility] [address] [place] [address] * LACTATE VENOUS (08/23/2023 8:13 PM CDT) LACTATE,VENOUS 0.5 0.5 - 2.0 mmol/L 08/23/2023 8:40 PM CDT [facility] Blood BLOOD SPECIMEN / Unknown IV Start / Unknown 08/23/2023 8:13 PM CDT 08/23/2023 8:16 PM CDT Elvira MICHELLE CHEMISTRY Performing Organization Address [facility] Co de Phone Number [facility] [address] [place] [address] * (ABNORMAL) MANUAL DIFFERENTIAL (08/23/2023 8:13 PM CDT) % NEUTROPHILS 20.0 % 08/23/2023 9:[address] [facility] % LYMPHOCYTES 48.0 % 08/23/2023 9:06 PM T [facility] % MONOCYTES 31.0 % 08/23/2023 9:06 PM T [facility] % EOSINOPHILS 1.0 % 08/23/2023 9:[address] [facility] % BASOPHILS 0.0 % 08/23/2023 9:06 PM T [facility] NEUTROPHILS ABSOLUTE 0.4(L) 1.7 - 7.0 thou/cu mm 08/23/2023 9:06 PM T [facility] LYMPHOCYTES ABSOLUTE 0.9 0.9 - 2.9 thou/cu mm 08/23/2023 9:06 PM T [facility] MONOCYTES ABSOLUTE 0.6 <0.9 thou/cu mm 08/23/2023 9:[address] [facility] EOSINOPHILS ABSOLUTE 0.0 <0.5 thou/cu mm 08/23/2023 9:[address] [facility] BASOPHILS ABSOLUTE 0.0 <0.3 thou/cu mm 08/23/2023 9:[address] [facility] Blood BLOOD SPECIMEN / Unknown IV Start / Unknown 08/23/2023 8:13 PM CDT 08/23/2023 8:16 PM CDT Elvira MICHELLE HEMATOLOGY Performing Organization Address [facility] Co de Phone Number [facility] [address] [place] [address] * (ABNORMAL) C-REACTIVE PROTEIN (08/23/2023 8:13 PM CDT) C-REACTIVE PROTEIN 2.8(H) <0.5 mg/dL 08/23/2023 8:41 PM CDT [facility] Blood BLOOD SPECIMEN / Unknown IV Start / Unknown 08/23/2023 8:13 PM CDT 08/23/2023 8:16 PM CDT Elvira MICHELLE CHEMISTRY [facility] [address] [place] [address] * (ABNORMAL) BASIC METABOLIC PANEL (08/23/2023 8:13 PM CDT) SODIUM 133(L) 136 - 145 mmol/L 08/23/2023 8:[address] [facility] POTASSIUM 4.0 3.5 - 5.1 mmol/L 08/23/2023 8:[address] [facility] CHLORIDE 104 98 - 107 mmol/L 08/23/2023 8:[address] [facility] CO2,TOTAL 22 22 - 29 mmol/L 08/23/2023 8:[address] [facility] ANION GAP 7 5 - 18 08/23/2023 8:[address] [facility] GLUCOSE 80 70 - 99 mg/dL 08/23/2023 8:[address] [facility] CALCIUM 8.4(L) 8.8 - 10.2 mg/dL 08/23/2023 8:[address] [facility] BUN 14 8 - 23 mg/dL 08/23/2023 8:[address] [facility] CREATININE 1.25(H) 0.70 - 1.20 mg/dL 08/23/2023 8:[address] [facility] BUN/CREAT RATIO 11 10 - 20 8:[address] [facility] eGFR 63(L) >90 mL/min/1.7 3m2 08/23/2023 8:[address] [facility] Comment:As of 2021, eG [...] 08/23/2023 8:16 PM CDT Elvira MICHELLE CHEMISTRY [facility] [address] [place] [address] * CT CHEST ABDOMEN PELVIS WO (01/03/2023 [...] Reactive Non Reactive 10/11/2022 12:[address] [facility] Blood BLOOD SPECIMEN / Unknown Venipuncture / Unknown 10/09/2022 9:06 AM CDT 10/09/2022 9:06 AM CDT Narrative [facility] ([facility] - 10/11/2022 12:08 PM CDT Performed at: ??01 - [address] ??[id number] Automotive Engineer: Zane Rebolledo MD, Phone: ??[phone] Radha Edouard MD LABORATORY [facility] ([facility]) [address] [place] [address], [place] * CT CHEST ABDOMEN PELVIS W [...] - 199 mg/dL 09/09/2022 12:53 PM T [facility] TRIGLYCERIDES 77 <150 mg/dL 09/09/2022 12:53 PM T [facility] HDL CHOLESTEROL 34(L) >40 mg/dL 12:53 PM T [facility] NON-HDL CHOLESTEROL 115 <145 mg/dl 09/09/2022 12:53 PM T [facility] CHOL/HDL RATIO 4.38 <4.50 09/09/2022 12:53 PM T [facility] LDL CHOLESTEROL 100 <=130 mg/dL 09/09/2022 12:[address] [facility] VLDL CHOLESTEROL 15 <=30 mg/dL 09/09/2022 12:53 PM T [facility] PROVIDER ORDERED STATUS RANDOM 09/09/2022 12:53 PM T [facility] Blood BLOOD SPECIMEN / Unknown Butterfly / Unknown 09/09/2022 12:06 PM CDT 09/09/2022 12:07 PM CDT David Ambrocio MD CHEMISTRY [facility] [address] [place] [phone] from Last 3 Months or Most Recently [...] Discussion: Reviewed Preferences wit h Care Teams Steamer Gum Candy Relationship Specialty Start Date End Date David Ambrocio MD [address] [place] [address] PCP - General Family Practice 11/27/22 Elvira Morin, RN [address] [place], [place] [id number] Nurse Navigator - Oncology Registered Nurse 10/18/22 Radha Edouard MD [address] [place] [address] Medical Oncologist Hematology and Oncology 11/21/22 Lizeth Alarcon, CLINICAL PRACTITIONER [address] [place], [place] [phone] Nurse Practitioner Hematology and Oncology 11/21/22 Segundo, KYUNG Hong [address] [place], [place] [phone] Chain Puller 01/06/[address] [address] 01/21/23
== END 2023-11-11 14:41 | disposition home or self-care (01) ==
LOC: WOUND 14:40
PROVIDERS: PCP Internal Medicine; Visit Provider Nurse Practitioner Family
DX: I87.311 Chronic venous hypertension (idiopathic) with ulcer of right lower extremity (principal); L97.212 Non-pressure chronic ulcer of right calf with fat layer exposed
CPT/HCPCS: 15271; Q4151

== ENCOUNTER 2023-11-18 14:42 | Outpatient (CLI) | payer MEDICARE, BC, SELFPAY ==
--- OUTSIDE RECORDS SUMMARY | 2023-11-18 14:44 | XMS_ITS | Clinical Summary ---
Author Organization [facility] Address [place], [place] [address] Care Team Providers Care Pattern Maker Programer Name Role Phone Elvira Morin Stefano RN Unavailable Radha Edouard MD Unavailable Lizeth Alarcon KINESIOLOGY PROFESSOR Unavailable David Ambrocio MD Primary Care Provider Jaylon RaymondW Unavailable [phone] [facility] Allergies Active Allergy Reactions [...] Encounters Date Type Department Care Team Description 11/12/2023 8:50 AM CDT - 11/12/2023 11:59 PM CDT Hospital Encounter [facility] [address] [place] [address] Pancytopenia (HC) [D61.818] 11/12/2023 Travel 10/28/2023 Orders Only [facility] Scanner 1 scan: (1-Ord) INCOMING RECORDS-CT, [facility], 10/28/2023 10/28/2023 Orders Only [facility] Scanner 1 scan: (1-Ord) INCOMING RECORDS-LABS, [facility], 10/28/2023 10/28/2023 Orders Only [facility] Scanner 1 scan: (1-Ord) INCOMING RECORDS-LABS, [facility], 10/28/2023 10/27/2023 Telephone [facility] [address] [place] [address] [facility] Referral (AML) 09/25/2023 Lab Requisition [facility] [phone] David Gordon MD 09/10/2023 Lab Requisition [facility] [phone] David Gordon MD 08/29/2023 Lab Requisition L [facility] [phone] Eloina Paniagua MD 08/27/[address] [facility] Scanner 1 scan: (1-Ord) [place], LOWER LEG RT W/COM, 08/27/2023 08/23/2023 7:26 PM CDT - 08/23/2023 11:[address] [facility] [address] [place] [address] Elvira Thayer PA Abscess of right lower extremity (Primary Dx); Neutropenia, unspecified type (HC) Discharge Disposition: Home Self Care 08/23/2023 Travel from Last 3 Months Immunizations Name [...] Care Team (Late st Contact Info) Description 11/19/2023 11:15 AM CDT Office Visit [facility] [address] [place] [address] Lizeth Alarcon, KINESIOLOGY PROFESSOR [address] [place], [place] [address] Health Maintenance Due Date Last Done Comments [...] 09/09/2022, 11/26/2010, 05/16/2006 Tetanus booster 08/28/2032 08/28/2022, 0212/2006, 07/28/1996 Tdap Completed 08/28/2022 AAA screening age 65-74 Completed 09/19/2022 Hepatitis C screening for age 18-79 Completed 10/09 Procedures Procedure Name Priority Date/Time Associated Diagnosis Comments PERIPHERAL BLD MORPHOLOGY Today 11/12/2023 8:56 AM CDT Pancytopenia (HC) [D61.818] RED CELL MORPHOLOGY Timed 11/12/2023 8 :56 AM CDT Pancytopenia (HC) [D61.818] PLATELET ESTIMATE Timed 11/12/2023 8:5 6 AM CDT Pancytopenia (HC) [D61.818] MANUAL DIFFERENTIAL Timed 11/12/2023 8 :56 AM CDT Pancytopenia (HC) [D61.818] CBC WITH AUTO DIFFERENTIAL Timed 11/12/2023 8:56 AM CDT Pancytopenia (HC) [D61.818] LD,TOTAL Today 11/12/2023 8:56 AM CDT Pancytopenia (HC) [D61.818] HEPATIC FUNCTION PANEL Today 8:56 AM CDT Pancytopenia (HC) [D61.818] RETICULOCYTES Today 11/12/2023 8:56 AM CDT Pancytopenia (HC) [D61.818] BASIC METABOLIC PANEL Today 11/12/2023 8:56 AM CDT Pancytopenia (HC) [D61.818] CBC WITH AUTO DIFFERENTIAL Today 11/12/2023 8:56 AM CDT Pancytopenia (HC) [D61.818] SCAN CORRESP-LABORATORY RESULTS 10/28/2023 12:00 AM CDT [...] Recently Relevant to Health Maintenance Results * (ABNORMAL) CBC WITH AUTO DIFFERENTIAL (11/12/2023 8:56 AM CDT) Only the most recent of2 resultswithin the time period is included. WHITE BLOOD COUNT 3.1(L) 4.5 - 11.0 thou/cu mm 11/12/2023 10:23 AM CDT [facility] RED BLOOD COUNT 3.49(L) 4.30 - 5.90 mil/cu mm 11/12/2023 10:23 AM CDT [facility] HEMOGLOBIN 8.0(L) 13.5 - 17.5 g/dL 11/12/2023 10:23 AM [facility] HEMATOCRIT 27.7(L) 37.0 - 53.0 % 11/12/2023 10:23 AM [facility] MCV 79(L) 80 - 100 fL 11/12/2023 10:23 AM [facility] MCH 22.9(L) 26.0 - 34.0 pg 11/12/2023 10:23 AM [facility] MCHC 28.9(L) 32.0 - 36.0 g/dL 11/12/2023 10:23 AM [facility] RDW 22.3(H) 11.5 - 15.5 % 11/12/2023 10:23 AM [facility] PLATELET COUNT 357 140 - 440 thou/cu mm 11/12/2023 10:23 AM [facility] MPV 11/12/2023 10:23 AM [facility] Comment:Unable to be determi amada Blood BLOOD SPECIMEN / Unknown Butterfly / Unknown 11/12/2023 8:56 AM CDT 11/12/2023 8:57 AM [facility] LABORATORY - 11/12/2023 10:23 AM CDT This procedure was originally ordered at [facility]. This procedure was originally ordered at [facility]. This procedure was originally ordered at [facility] Radha Edouard MD HEMATOLOGY [facility] [address] [place] [address] * (ABNORMAL) RED CELL MORPHOLOGY (11/12/2023 8:56 AM CDT) Only the most recent of2 resultswithin the time period is included. ELLIPTOCYTES Moderate 11/12/2023 10:23 AM [facility] POLYCHROMASIA Slight 11/12/2023 10:23 AM CDT [facility] SCHISTOCYTES Few 11/12/2023 10:23 AM CDT [facility] TARGET CELLS Few 11/12/2023 10:23 AM CDT [facility] TEARDROP CELLS Moderate 11/12/2023 10:23 AM CDT [facility] RBC COMMENT Present(A) RBC morphology appears normal, RBC morphology within normal limits for newborns. 11/12/2023 10:23 AM CDT [facility] LARGE PLATELETS Present 10:23 AM CDT [facility] Blood BLOOD SPECIMEN / Unknown Butterfly / Unknown 11/12/2023 8:56 AM CDT 11/12/2023 8:57 AM CDT [facility] LABORATORY - 11/12/2023 10:23 AM CDT This procedure was originally ordered at [facility]. This procedure was originally ordered at [facility]. This procedure was originally ordered at [facility]. Radha Edouard MD HEMATOLOGY Performing Organization Address City/State/[facility] Co de Phone Number [facility] [address] [place] [address] * PLATELET ESTIMATE (11/12/2023 8:56 AM CDT) Only the most recent of2 resultswithin the time period is included. PLATELET ESTIMATE Adequate Adequate, No estimate 11/12/2023 10:23 AM CDT [facility] Blood BLOOD SPECIMEN / Unknown Butterfly / Unknown 11/12/2023 8:56 AM CDT 11/12/2023 8:57 AM CDT [facility] LABORATORY - 11/12/2023 10:23 AM CDT This procedure was originally ordered at [facility]. This procedure was originally ordered at [facility]. This procedure was originally ordered at [facility]. Radha Edouard MD HEMATOLOGY [facility] [address] [place] [address] * (ABNORMAL) MANUAL DIFFERENTIAL (11/12/2023 8:56 AM T) Only the most recent of2 resultswithin the time period is included. % NEUTROPHILS 26.0 % 11/12/2023 10:23 AM [facility] % LYMPHOCYTES 39.0 % 11/12/2023 10:23 AM [facility] % MONOCYTES 22.0 % 11/12/2023 10:23 AM [facility] % EOSINOPHILS 2.0 % 11/12/2023 10:23 AM [facility] % BASOPHILS 0.0 % 11/12/2023 10:23 AM [facility] % METAMYELOCYTES 1.0(H) <0.1 % 11/12/19 10:23 AM [facility] % MYELOCYTES 1.0(H) <0.1 % 11/12/2023 10:23 AM [facility] % PROMYELOCYTES 4.0(H) <0.1 % 10:23 AM [facility] % BLASTS 5.0(H) None Seen % 11/12/2023 10:23 AM [facility] NEUTROPHILS ABSOLUTE 0.8(L) 1.7 - 7.0 thou/cu mm 11/12/2023 10:23 AM [facility] LYMPHOCYTES ABSOLUTE 1.2 0.9 - 2.9 thou/cu mm 11/12/2023 10:23 AM [facility] MONOCYTES ABSOLUTE 0.7 <0.9 thou/cu mm 11/12/2023 10:23 AM [facility] EOSINOPHILS ABSOLUTE 0.1 <0.5 thou/cu mm 11/12/2023 10:23 AM [facility] BASOPHILS ABSOLUTE 0.0 <0.3 thou/cu mm 11/12/2023 10:23 AM [facility] ABSOLUTE METAMYELOCYTES 0.0 <=0.0 thou/cu mm 11/12/2023 10:23 AM CDT [facility] ABSOLUTE MYELOCYTES 0.0 <=0.0 thou/cu mm 11/12/2023 10:23 AM CDT [facility] ABSOLUTE PROMYELOCYTES 0.1(H) <=0.0 thou/cu mm 11/12/2023 10:23 AM CDT [facility] ABSOLUTE BLASTS 0.2(H) <=0.0 thou/cu mm 11/12/2023 10:23 AM CDT [facility] Blood BLOOD SPECIMEN / Unknown Butterfly / Unknown 11/12/2023 8:56 AM CDT 11/12/2023 8:57 AM CDT Narrative [facility] - 11/12/2023 10:23 AM CDT This procedure was originally ordered at [facility]. This procedure was originally ordered at [facility]. This procedure was originally ordered at [facility]. Radha Edouard MD HEMATOLOGY Performing Organization Address City/State/[facility] Co de Phone Number [facility] [address] [place] [address] * PERIPHERAL BLD MORPHOLOGY (11/12/2023 8:56 AM CDT) Only the most recent of2 resultswithin the time period is included. Case Report Special Hematology Report ? Case: [id number] ? Authorizing Provider: ??Radha Edouard MD ?Collected: ? 11/12/2023 0856 ? Ordering Location: ? [facility] ? Received: ?11/12/2023 0857 ? [facility] ? Pathologist: ? Alfonso Ramesh, ? MD ? Specimen: ?Blood ? 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 6.5% BLASTS identified 2. 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 Moderate microcytic hypochromic anemia, suggestive of iron deficiency anemia 4. See comment 11/15/2023 1:55 PM CDT [facility] Comment Since the last described peripheral blood morphology performed with the bone marrow biopsy 09/25/2023 ([id number]), the blast count has remained essentially the same at 6.5% circulating blasts (prior: 6.3% circulating blasts). There are no other significant changes observed. The most common etiology for microcytic anemia is iron deficiency. Recommend correlation with serum iron studies, including ferritin and soluble transferrin receptor assay. Anemia of chronic disease can also exhibit microcytic features. Concurrent anemia of renal insufficiency, medication effect and anatomic blood loss cannot be excluded. There are no findings to suggest hemolysis. Clinical correlation is recommended. This case was also reviewed by Mari Armijo MT, MS ([facility]). 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 Chromosome analysis revealed a +8 mutation. Myeloid NGS was positive for ASXL1, BRAF, CEBPA, IDH1, and SRSF2 mutations. 11/12/23 08:56 CREATININE: 1.44 (H) eGFR: ? 53 (L) 11/15/2023 1:55 PM CDT [facility]- [facility]AL LABORATORY CBC and Differential HEMATOLOGY PARAMETERS Tested at: ??[facility] ? RESULTS ??EXPECTED VALUES WBC: ? 3.1 ?4.5-15c9228/cumm ?DECREASED RBC: ? 3.49 ? 4.30-5.90 mil/cumm ??DECREASED HGB: ? 8.0 ?13.5-17.5 gm/di ? DECREASED HCT: ? 27.7 ? 37-53% ?DECREASED MCV: ? 79.0 ? 80-100 fl ? MICROCYTIC MCH: ? 22.9 ? 26-34 pg ?DECREASED MCHC: ?28.9 ? 32-36 gm/dl ? HYPOCHROMIC RDW: ? 22.3 ? 11.5-15.5% ?ELEVATED PLT: ? 357 ?140-428b6448/uL MPV: ? Unable to be determined ? Retic: ?? 6.6 ?0.5-1.5% ?ELEVATED Differential ?Tested at: ??[facility] ?Absolute (%) ?Expected (%) ?(x10*9/L) ? (x10*9/L) Neutrophils: ?0.8 (25.8) ?1.7-7.0 (42-72%) ??DECREASED Lymphocytes: ?1.2 (38.7) ?0.9-2.9 (20-44%) ?? Monocytes: ?0.7 (22.6) ? <0.9 (0-11%) ? Eosinophils: ?0.1 (3.2) ?<0.5 (0-2%) ? Promyelocytes: ??0.1 (3.2) ?<0.1 (<0.1%) ? ELEVATED Blasts: ? 0.2 (6.5) ? 0 ??(0%) ? BLASTS 11/15/2023 1:[address] [facility] Reticulocytes Retic: 6.6 0.5-1.5% ELEVATED 11/15/2023 1:[address] [facility] Microscopic Description The final diagnosis is based on microscopic examination of an appropriately stained blood smear. 11/15/2023 1:55 PM CDT [facility]- CENTRAL LABORATORY Additional Information Interpreted at [facility] Central Laboratory - [address] [facility] [address], [place] [address] 11/15/2023 1:55 PM CDT [facility] Blood BLOOD SPECIMEN / Unknown 11/12/2023 8:56 AM CDT 11/12/2023 8:57 AM CDT Comment:CURRENT MEDICATIONSC urrent Outpatient Medications: ? ? Bismuth Tribrom-Petrolatum,Wh (Xeroform) 5 X 9 bndg, Apply topically to affected area(s)., Disp: 50 Each, Rfl: 2? ? cholecalciferol, Vitamin D3, (Vitamin D-3) 5,000 unit tab tablet, Take 5,000 units by mouth once daily., Disp: , Rfl: ? ? ferrous sulfate (IRON ORAL), Take by mouth., Disp: , Rfl: ? ? fluticasone (50 mcg per actuation) nasal solution (FLONASE), 1 SPRAY IN EACH NOSTRIL 2 TIMES DAILY., Disp: 16 g, Rfl: 12? ? medication order composer, Apply 1 unit topically to affected area(s) once daily. Hydrofera Blue Ready antibacterial foam dressing 8x8. Use one per day., Disp: 30 Each, Rfl: 0? ? multivitamin (MVI) tablet, Take 1 tablet by mouth once daily., Disp: , Rfl: 0? ? vitamin B complex (B COMPLETE ORAL), Take 1 Tablet by mouth once daily., Disp: , Rfl: This procedure was originally ordered at [facility]. Radha Edouard MD HEMATOLOGY [facility] [address] [place] [address], * (ABNORMAL) LD,TOTAL (11/12/2023 8:56 AM CDT) LD,TOTAL 411(H) 135 - 225 IU/L 11/12/2023 10:39 AM CDT [facility] Blood BLOOD SPECIMEN / Unknown Butterfly / Unknown 11/12/2023 8:56 AM CDT 11/12/2023 8:57 AM CDT Radha Edouard MD CHEMISTRY [facility] [address] [place] [address] * (ABNORMAL) RETICULOCYTES (11/12/2023 8:56 AM CDT) RETIC% 6.6(H) 0.5 - 1.5 % 11/12/2023 1:15 PM CDT [facility] TRAL LABORATORY RETIC (ABSOLUTE) 0.24(H) 0.03 - 0.08 mil/cu mm 11/12/2023 1:15 PM CDT [facility] TRAL LABORATORY Blood BLOOD SPECIMEN / Unknown Butterfly / Unknown 11/12/2023 8:56 AM CDT 11/12/2023 8:57 AM CDT Narrative [facility] - 11/12/2023 1:15 PM CDT This procedure was originally ordered at [facility]. Radha Edouard MD HEMATOLOGY [facility] [address] [place] [address], * (ABNORMAL) HEPATIC FUNCTION PANEL (11/12/2023 8:56 AM CDT) ALBUMIN 2.9(L) 4.0 - 4.9 g/dL 11/12/2023 9:43 AM CDT [facility] PROTEIN,TOTAL 10.2(H) 6.0 - 8.0 g/dL 11/12/2023 9:43 AM CDT [facility] BILIRUBIN,TOTAL 0.5 0.0 - 1.2 mg/dL 11/12/2023 9:43 AM CDT [facility] BILIRUBIN,DIRECT <0.2 0.0 - 0.3 mg/dL 11/12/2023 9:43 AM CDT [facility] BILIRUBIN,INDIRE CT 11/12/2023 9:43 AM [facility] Comment:Unable to calculate, Direct Bili <0.2 ALK PHOSPHATASE 87 40 - 129 IU/L 11/12/2023 9:43 AM [facility] ALT (SGPT) <5(L) 10 - 50 IU/L 11/12/2023 9:43 AM [facility] AST (SGOT) 46 10 - 50 IU/L 11/12/2023 9:43 AM [facility] Blood BLOOD SPECIMEN / Unknown Butterfly / Unknown 11/12/2023 8:56 AM CDT 11/12/2023 8:57 AM CDT Radha Edouard MD CHEMISTRY [facility] [address] [place] [address] * (ABNORMAL) BASIC METABOLIC PANEL (11/12/2023 8:56 AM CDT) Only the most recent of2 resultswithin the time period is included. SODIUM 132(L) 136 - 145 mmol/L 11/12/2023 9:28 AM [facility] POTASSIUM 4.0 3.5 - 5.1 mmol/L 11/12/2023 9:28 AM [facility] CHLORIDE 101 98 - 107 mmol/L 11/12/2023 9:28 AM [facility] CO2,TOTAL 22 22 - 29 mmol/L 11/12/2023 9:28 AM [facility] ANION GAP 9 5 - 18 11/12/2023 9:28 AM [facility] GLUCOSE 98 70 - 99 mg/dL 11/12/2023 9:28 AM [facility] CALCIUM 8.1(L) 8.8 - 10.2 mg/dL 11/12/2023 9:28 AM [facility] BUN 17 8 - 23 mg/dL 11/12/2023 9:28 AM [facility] CREATININE 1.44(H) 0.70 - 1.20 mg/dL 11/12/2023 9:28 AM CDT [facility] BUN/CREAT RATIO 12 10 - 20 9:28 AM CDT [facility] eGFR 53(L) >90 mL/min/1.7 3m2 11/12/2023 9:28 AM CDT [facility] Comment:As of 2021, eG FR is calculated by the CKD-EPI creatinine equation without race adjustment. ??eGFR can be influenced by muscle mass, exercise, and diet. ??The reported eGFR is an estimation only and is only applicable if the renal function is stable. Blood BLOOD SPECIMEN / Unknown Butterfly / Unknown 11/12/2023 8:56 AM CDT 11/12/2023 8:57 AM CDT Radha Edouard MD CHEMISTRY [facility] [address] [place] [address] * SCAN CORRESP-LABORATORY RESULTS (10/28/2023 12:00 AM [...] CDT David Gordon MD LAB BILL ONLY [facility]AL LABORATORY [address] [place] [address], * MYELOID NGS (LAB ONLY) (09/25/2023 9:10 AM CDT) Bone Marrow (Bone Marrow Aspirate) 09/25/2023 9:10 AM CDT 09/26/2023 3:40 PM CDT David Gordon MD PATHOLOGY/CYTOLOGY Performing Organization Address [facility] de Phone Number [facility] [address] [place] [address], [place] * BM/LB CHROM (09/25/2023 9:10 AM CDT) Bone Marrow (Bone Marrow Aspirate) 09/25/2023 9:10 AM CDT 09/26/2023 2:58 PM CDT David Gordon MD LABORATORY Performing Organization Address [facility] Phone Number [facility] [address] [place] [address], [place] * BM WETLAB (09/25/2023 9:10 AM CDT) Bone Marrow (Bone Marrow Aspirate) 09/25/2023 9:10 AM CDT 09/26/2023 2:58 PM CDT David Gordon MD LABORATORY Performing Organization Address [facility] Phone Number [facility] [email or web address] LABORATORY [address] [place] [address], [place] * OC (09/25/2023 9:10 AM CDT) Bone Marrow (Bone Marrow Aspirate) 09/25/2023 9:10 AM CDT 09/26/2023 2:58 PM CDT David Gordon MD LABORATORY Performing Organization Address [facility] de Phone Number [facility] [employer] LAB[facility]ATORY [address] [place] [address], [place] * OB (09/25/2023 9:10 AM CDT) Bone Marrow (Bone Marrow Aspirate) 09/25/2023 9:10 AM CDT 09/26/2023 2:58 PM CDT David Gordon MD LABORATORY Performing Organization Address [facility] Co de Phone Number [facility] [address] [place] [address], [place] * CHROM TECH 2 (09/25/2023 9:10 AM CDT) Bone Marrow (Bone Marrow Aspirate) 09/25/2023 9:10 AM CDT 09/26/2023 2:58 PM CDT David Gordon MD LABORATORY Performing Organization Address [facility] de Phone Number [facility] [address] [place] [address], [place] * CHROM TECH 1 (09/25/2023 9:10 AM CDT) Bone Marrow (Bone Marrow Aspirate) 09/25/2023 9:10 AM CDT 09/26/2023 2:58 PM CDT David Gordon MD LABORATORY Performing Organization Address [facility] de Phone Number [facility] [address] [place] [address], [place] * BONE MARROW DIFFERENTIAL (09/25/2023 9:10 AM CDT) Bone Marrow (Bone Marrow Aspirate) 09/25/2023 9:10 AM CDT 09/29/2023 7:59 AM CDT David Gordon MD LABORATORY Performing Organization Address [facility] de Phone Number [facility] [address] [address], [place] * CYTOGENETIC BONE MARROW STUDIES (09/25/2023 9:10 AM CDT) [facility] RFR Acute Myeloid Leukemia, myeloid neoplasm. 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 See comments. 10/02/2023 12:17 PM CDT [employer] ENTRAL LABORATORY _ 10/02/2023 12:[address] 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 ??Trisomy 8 is classified as an intermediate prognostic risk stratification category in AML (NCCN, 2024). Clinicopathologic correlation of these results is recommended. 10/02/2023 12:17 PM CDT [facility] ENTRAL LABORATORY COMMENTS A preliminary chromosome result was provided to Manny Alfredo MD on 09/29/2023. 10/02/2023 12:[address] [facility] LAB TEST DETAILS Fully Analyzed Metaphases: ??20 Partially Analyzed Metaphases: ??0 Full Karyotypes: ??3 10/02/2023 12:[address] [facility] SOURCE Bone Marrow (NaHep) [id number] [id number] 10/02/2023 12:[address] [facility] METHODS Cultures used in chromosome analysis were non-stimulated. Chromosome analysis is performed on consecutive analyzable G-banded metaphases. 10/02/2023 12:17 PM CDT [facility] ENTRAL LABORATORY REFERENCES National [employer] [facility]. (2023). Acute Myeloid Leukemia (version 3.2023). Retrieved from https://www.nccn.o rg/professionals/p hysician_gls/pdf/a ml.pdf. Kenia Germain., Alexei Dominguez, Gurjit Burden, Rachell Kebede., Alivia Nesbitt., Sravani Fortune., Isai Wilson. (Eds): WHO Classification of Tumours of Haematopoietic and Lymphoid Tissues. (Revised 4th edition) IARC: Michael 2017. 10/02/2023 12:17 PM CDT [facility] ENTRAL LABORATORY DISCLAIMER This test was developed and its performance characteristics determined by the [facility]etics [facility]. It has not been cleared [...] clinical laboratory testing. 10/02/2023 12:[address] [facility] Bone Marrow (Bone Marrow Aspirate) 09/25/2023 9:10 AM CDT 09/26/2023 2:58 PM CDT David Gordon MD [facility]ORATORY [facility] LAB[facility]AT[facility] [address] [place] [id number], * BONE MARROW STUDY (09/25/2023 9:10 AM CDT) Case Report Bone Marrow Pathology Report ?Case: [id number] ? Authorizing Provider: ??David Gordon MD ?Collected: ? 09/25/2023 0910 ? Ordering Location: ? [facility] LAB ?Received: ?09/26/2023 0625 ? Pathologist: ? Manny Alfredo MD ? Specimens: ?? A) - Bone Marrow Aspirate ? B) - Bone Marrow Aspirate (Heparinized) ? C) - Bone Marrow Core Biopsy ? D) - Peripheral Blood ? 10/03/2023 8:51 AM CDT [facility]- CENTRAL LABORATORY Amendment 10/03/2023 - Amendment to report [facility] Myeloid Targeted Next Generation Sequencing (NGS) results. Please see diagnosis and attached scanned report. Results are communicated with Dr. Edouard via Secure Chat on 10/03/[address] Alfredo. 10/03/2023 8:51 AM T [facility]- CENTRAL LABORATORY Final Diagnosis BONE [...] mutations; see attached report 10/03/2023 8:51 AM [facility] Amendment electronically signed by Manny Alfredo MD on 10/03/2023 at 8:51 AM Comment Results are electronically communicated via Secure Chat to Dr. Edouard and Lizeht Alarcon on 09/29/[address] Alfredo. In [...] a defining cytogenetic abnormality.) 10/03/2023 8:51 AM [facility] Clinical Information Mr. Alba is a 68 y.o. With a peripheral blood morphology consistent with a myeloid neoplasm with 1-2% circulating blasts, moderate microcytic hypochromic anemia with reticulocytosis (6.7%), leukopenia reflecting mild absolute neutropenia with dysgranulopoiesis and lymphocytopenia, and mild absolute monocytosis ([id number], 09/10/23). A bone marrow biopsy is performed for further characterization. 10/03/2023 8:51 AM [facility]- CENTRAL LABORATORY PROCEDURE A RIGHT lateral bone marrow biopsy and unilateral aspiration procedure is performed at [facility] on 09/25/23. VIVIANA Monterroso performed the procedure using an 8 gauge manual needle. The ordering physicians are Drs. Gordon and Silke. The specimen is inked orange. EVM 09/26/2023 10/03/2023 8:51 AM [facility] CENTRAL LABORATORY CBC and Differential HEMATOLOGY PARAMETERS Tested at: ??[facility] ? RESULTS ??EXPECTED VALUES WBC: ? 1.6 ?4.5-11b5503/cumm ?DECREASED RBC: ? 3.8 ?4.30-5.90 mil/cumm ??DECREASED HGB: ? 8.5 ?13.5-17.5 gm/di ? DECREASED HCT: ? 30.7 ? 37-53% ?DECREASED MCV: ? 81.0 ? 80-100 fl ? NORMOCYTIC MCH: ? 23.0 ? 26-34 pg ?DECREASED MCHC: ?28.0 ? 32-36 gm/dl ? HYPOCHROMIC RDW: ? 22.5 ? 11.5-15.5% ?ELEVATED PLT: ? 253 ?140-947g9732/uL ? Retic: ?? 7.91 ?0.5-1.5% ? ELEVATED Differential ?Tested at: ??[facility] ?Absolute (%) ?Expected (%) ?(x10*9/L) ? (x10*9/L) Neutrophils: ?0.5 (31.3) ?1.7-7.0 (42-72%) ??DECREASED Lymphocytes: ?0.6 (37.5) ?0.9-2.9 (20-44%) ??DECREASED Monocytes: ?0.4 (25) ? <0.9 (0-11%) ? Blasts: ? 0.1 (6.3) ? 0 ??(0%) ? BLASTS 10/03/2023 8:51 AM [facility] Reticulocytes Retic: 7.91 0.5-1.5% ELEVATED 10/03/2023 8:51 AM [facility] Bone Marrow Differential Blasts: ?23.6 ?0.2-1.5% ?ELEVATED Neutrophils & precursors: ??14.4 ?58.0-65.0% ?DECREASED Erythroid precursors: ?38 ?18.0-24.0% ?ELEVATED Lymphocytes: ? 21 ? 3.0-24.0% ? Monocytes: ? 2.2 ? 0.7-2.8% ? Plasma cells: ?0.8 ? 0.1-1.5% ? M:E Ratio: ? 14 : 38 10/03/2023 8:51 AM [facility] Microscopic Description The final [...] Ringed sideroblasts: Absent 10/03/2023 8:51 AM CDT [facility]TRAL LABORATORY Flow Cytometry Summary Diagnostic [...] Trace positive markers: CD7/CD36 Negative markers: CD65/CD15/CD10/CD64 /FN624r/CD14/CD56/C D11b/CD16/CD2/CD5/C D235a/CD19/CD22(CYT O)/CD79a(CYTO)/TdT( n)/CD3(CYTO) Quality Assessment Viability (7-AAD): 62% Nucleated cells analyzed: [id number] Limit of detection (LOD): 0.1% These results and cytograms have been verified by Dr. Alfredo. This test was developed and its performance characteristics verified by [facility]. It has not been cleared or [...] 09/26/2023 3:50 PM 10/03/2023 8:51 AM CDT [facility] Cytogenetics Summary Cytogenetic testing has been ordered and will be reported separately. 10/03/2023 8:[address] [facility] Other Testing Immunostains were performed on the bone core biopsy. CD34 (blast marker) (manual morphometry: ??25% 10/03/2023 8:51 AM CDT [facility] Additional Information Interpreted at [facility] - [address] [place] [address] S[address] [facility] [address] [address] Immunohistochemistr y controls were reviewed and approved by the pathologist during this examination. 10/03/2023 8:51 AM CDT [facility] Bone Marrow (Bone Marrow Aspirate) 09/25/2023 9:10 [...] David Gordon MD LABORATORY Performing Organization Address City/State/[facility] Co de Phone Number [facility] [address] [place] [address], * PATH TISSUE EXAM (08/29/2023 8:40 AM CDT) Case Report Pathology Report ?Case: [id number] ? Authorizing Provider: ??Eloina Paniagua MD ?Collected: ? 08/29/2023 0840 ? Ordering Location: ? [facility] ?Received: ?08/29/2023 1517 ? Pathologist: ? Georgie Rocha MD ? Specimen: ?Right Leg, Right leg chronic wound necrotic tissue ? 09/03/2023 3:[address] [facility] ENTRAL LABORATORY Final Diagnosis SKIN AND SOFT TISSUE, RIGHT LEG CHRONIC WOUND, EXCISION: 1. ??Ulcer bed with reactive epithelial hyperplasia, dense dermal mixed inflammatory infiltrate and prominent fibrosis 2. ??No evidence of vasculitis or malignancy right leg 09/03/2023 3:31 PM T [facility] LABORATORY-C ENTRAL LABORATORY Clinical Information Right leg chronic wound necrotic tissue. 09/03/2023 3:31 PM T [facility] LABORATORY-C ENTRAL LABORATORY Gross Description A) Received [...] red-brown skeletal. No solid mass is identified. Machine Worker sections are submitted in 2 cassettes. TTP 08/29/2023 09/03/2023 3:31 PM T [facility] LABORATORY-C ENTRAL LABORATORY Microscopic Description The final diagnosis is based on microscopic examination of appropriate sections of all specimens. The presence of blue ink is confirmed on tissue sections. 09/03/2023 3:31 PM CDT [facility]-C ENTRAL LABORATORY Additional Information Interpreted at [facility], Central Laboratory - [address], [place] [address] 09/03/2023 3:31 PM CDT [facility]-C ENTRAL LABORATORY Other (Right Leg) 08/29/2023 8:40 AM CDT 08/29/2023 3:17 PM CDT Eloina Paniagua MD PATHOLOGY/CYTOLOGY [facility]-CENTRAL LABORATORY [address] [place] [address], * SCAN-CT INTERPRETATION (08/27/2023 12:00 AM CDT) [...] CDT Elvira MICHELLE HEMATOLOGY Performing Organization Address [facility] Co de Phone Number [facility] [address] [place] [address] * LACTATE VENOUS (08/23/2023 8:13 PM CDT) LACTATE,VENOUS 0.5 0.5 - 2.0 mmol/L 08/23/2023 8:40 PM CDT [facility] Blood BLOOD SPECIMEN / Unknown IV Start / Unknown 08/23/2023 8:13 PM CDT 08/23/2023 8:16 PM CDT Elvira MICHELLE CHEMISTRY Performing Organization Address [facility] Co de Phone Number [facility] [address] [place] [address] * (ABNORMAL) C-REACTIVE PROTEIN (08/23/2023 8:13 PM CDT) C-REACTIVE PROTEIN 2.8(H) <0.5 mg/dL 08/23/2023 8:41 PM CDT [facility] Blood BLOOD SPECIMEN / Unknown IV Start / Unknown 08/23/2023 8:13 PM CDT 08/23/2023 8:16 PM CDT Elvira MICHELLE CHEMISTRY Performing Organization Address [facility] Co de Phone Number [facility] [address] [place] [address] * CT CHEST ABDOMEN PELVIS WO (01/03/2023 [...] Reactive Non Reactive 10/11/2022 12:08 PM CDT [facility] Blood BLOOD SPECIMEN / Unknown Venipuncture / Unknown 10/09/2022 9:06 AM CDT 10/09/2022 9:06 AM CDT Narrative [facility] ([facility] - 10/11/2022 12:08 PM CDT Performed at: ??01 - [facility] [address] [place], [place] ??[id number] Injection Mold Tooling Technician: Zane Rebolledo MD, Phone: ??[phone] Radha Edouard MD LABORATORY [facility] ([facility]) [facility] [place] [address], [place] * CT CHEST ABDOMEN PELVIS W [...] 100 <=130 mg/dL 09/09/2022 12:53 PM T [facility] VLDL CHOLESTEROL 15 <=30 mg/dL 09/09/2022 12:53 PM T [facility] PROVIDER ORDERED STATUS RANDOM 09/09/2022 12:53 PM T [facility] Blood BLOOD SPECIMEN / Unknown Butterfly / Unknown 09/09/2022 12:06 PM CDT 09/09/2022 12:07 PM CDT David Ambrocio MD CHEMISTRY [facility] [address] [place] [address] from Last 3 Months or Most Recently [...] Status Discussion: Reviewed Preferences wit Care Teams Pattern Maker Programer Relationship Specialty Start Date End Date David Ambrocio MD [address] [place] [address] PCP - General Family Practice 11/27/22 Elvira Morin, SAHIL [address] [place] [address] Nurse Navigator - Oncology Registered Nurse 10/18/22 Radha Edouard MD [address] [place], [place] [id number] Medical Oncologist Hematology and Oncology 11/21/22 Lizeth Alarcon, KINESIOLOGY PROFESSOR [address] [place], [place] [id number] Nurse Practitioner Hematology and Oncology 11/21/22 [place], KYUNG Hong [address] [place] [id number] Repair Service Dispatcher 01/06/[address] [address] 01/21/23
== END 2023-11-18 14:43 | disposition home or self-care (01) ==
LOC: WOUND 14:42
PROVIDERS: PCP Internal Medicine; Visit Provider Physician Assistant Surgical
DX: I87.311 Chronic venous hypertension (idiopathic) with ulcer of right lower extremity (principal); L97.212 Non-pressure chronic ulcer of right calf with fat layer exposed
CPT/HCPCS: 11042; 11045

== ENCOUNTER 2023-11-25 14:40 | Outpatient (CLI) | payer MEDICARE, BC, SELFPAY ==
--- OUTSIDE RECORDS SUMMARY | 2023-11-25 14:42 | XMS_ITS | Clinical Summary ---
Author Organization [facility] Address [place], [place] [address] Care Team Providers Care Senior Web Designer Name Role Phone Elvira Morin Stefano RN Unavailable Radha Edouard MD Unavailable [phone] Lizeth Alarcon SAMPLE CARD MAKER Unavailable David Ambrocio MD Primary Care Provider Jaylon RaymondW Unavailable [phone] [facility] Unavailable [phone] Allergies Active Allergy Reactions Criticality Noted Date [...] Encounters Date Type Department Care Team Description 11/19/2023 11:15 AM CDT Office Visit [facility] [address] [place] [address] Lizeth Alarcon, SAMPLE CARD MAKER Follow Up (Pancytopenia (HC) [D61.818]//) 11/19/2023 Travel 11/19/2023 Telephone [facility] [address] [place] [address] Lizeth Alarcon, SAMPLE CARD MAKER Appointment 11/12/2023 8:50 AM CDT - 11/12/2023 11:59 PM CDT Hospital Encounter [facility] [address] [place] [address] Pancytopenia (HC) [D61.818] 11/12/2023 Travel 10/28/2023 Orders Only [facility] Scanner 1 scan: (1-Ord) INCOMING RECORDS-CT, [facility], 10/28/2023 10/28/2023 Orders Only [facility] Scanner 1 scan: (1-Ord) INCOMING RECORDS-LABS, [facility], 10/28/2023 10/28/2023 Orders Only [facility] Scanner 1 scan: (1-Ord) INCOMING RECORDS-LABS, [facility], 10/28/2023 10/27/[address] [facility] [address] [place] [address] [facility] Cancer Referral (AML) 09/25/2023 Lab Requisition [facility] [phone] David Gordon MD 09/10/2023 Lab Requisition [facility] [phone] David Gordon MD 08/29/2023 Lab Requisition [facility] [phone] Eloina Paniagua MD 08/27/2023 Orders Only [facility] Scanner 1 scan: (1-Ord) [place], LOWER [place]G RT W/COM, 08/27/2023 from Last 3 Months Immunizations Name Administration [...] Sign Reading Time Taken Comments Blood Pressure 140/76 11/19/2023 11:26 AM CDT Pulse 93 11/19/2023 11:17 AM CDT Temperature 36.8 ??C (98.2 ??F) 11/19/2023 1 1:17 AM CDT Respiratory Rate 18 11/19/2023 11:1 7 AM CDT Oxygen Saturation 96% 11/19/2023 11: 17 AM CDT Inhaled Oxygen Concentration - - Weight 84.7 kg (186 lb 12.8 oz) 024 11:17 AM CDT Height 175.3 cm (5' 9) 08/23/2023 7:02 PM CDT Body Mass Index 27.59 08/23/2023 7:02 PM CDT Plan of Treatment Health Maintenance Due Date Last Done Comments COVID-19 vaccine series (#1) 1960 Pneumococcal series for age 65+ (1 of 2 - PCV) 1961 Zoster (shingles) series for age 50+ (1 of 2) 1974 Colonoscopy through age 75 2000 Medicare Wellness for age 65+ 2020 Depression screening for age 12+ 09/10/2023 09/10/19 23, 04/03/2020 Influenza for age 65+ 12/07/[address] (for lung CA) age 50-80 01/04/202401/03, 09/19/2022 BMI (ht and wt on same day) for age 18+ 02/12/2024 02/11/2023, 09/09/2022 Lipids for age 45-75 09/10/2027 09/09/2022, 11/26/2010, 05/16/2006 Tetanus booster 08/28/2032 08/28/2022, 02/12/2006, 07/28/1996 Tdap Completed 08/28/2022 AAA screening age [...] CDT SCAN-CT INTERPRETATION 12:[address] CHEST ABDOMEN PELVIS WO STAT [...] WITH AUTO DIFFERENTIAL (11/12/2023 8:56 AM CDT) WHITE BLOOD COUNT 3.1(L) 4.5 - 11.0 thou/cu mm 11/12/2023 10:23 AM [facility] RED BLOOD COUNT 3.49(L) 4.30 - 5.90 mil/cu mm 11/12/2023 10:23 AM [facility] HEMOGLOBIN 8.0(L) 13.5 - 17.5 g/dL 11/12/2023 10:23 AM [facility] HEMATOCRIT 27.7(L) 37.0 - 53.0 % 11/12/2023 10:23 AM [facility] MCV 79(L) 80 - 100 fL 11/12/2023 10:23 AM [facility] MCH 22.9(L) 26.0 - 34.0 pg 11/12/2023 10:23 AM [facility] MCHC 28.9(L) 32.0 - 36.0 g/dL 11/12/2023 10:23 AM [facility] RDW 22.3(H) 11.5 - 15.5 % 11/12/2023 10:23 AM [facility] PLATELET COUNT 357 140 - 440 thou/cu mm 11/12/2023 10:23 AM [facility] MPV 11/12/2023 10:23 AM [facility] Comment:Unable to be determi amada Blood BLOOD SPECIMEN / Unknown Butterfly / Unknown 11/12/2023 8:56 AM CDT 11/12/2023 8:57 AM [facility] LABORATORY - 11/12/2023 10:23 AM CDT This procedure was originally ordered at [facility]. This procedure was originally ordered at [facility]. This procedure was originally ordered at [facility]. Radha Edouard MD HEMATOLOGY Performing Organization Address [facility] Co de Phone Number [facility] [address] [place] [address] * (ABNORMAL) RED CELL MORPHOLOGY (11/12/2023 8:56 AM CDT) ELLIPTOCYTES Moderate 11/12/2023 10:23 AM CDT [facility] POLYCHROMASIA Slight 11/12/2023 10:23 AM CDT [facility] SCHISTOCYTES Few 11/12/2023 10:23 AM CDT [facility] TARGET CELLS Few 11/12/2023 10:23 AM CDT [facility] TEARDROP CELLS Moderate 11/12/2023 10:23 AM CDT [facility] RBC COMMENT Present(A) RBC morphology appears normal, RBC morphology within normal limits for newborns. 11/12/2023 10:23 AM CDT [facility] LARGE PLATELETS Present 10:23 AM CDT [facility] Blood BLOOD SPECIMEN / Unknown Butterfly / Unknown 11/12/2023 8:56 AM CDT 11/12/2023 8:57 AM CDT [facility] LABORATORY - 11/12/2023 10:23 AM CDT This procedure was originally ordered at [facility]. This procedure was originally ordered at [facility]. This procedure was originally ordered at [facility]. Radha Edouard MD HEMATOLOGY Performing Organization Address City/[facility]/ZIP Co de Phone Number [facility] [address] [place] [address] * PLATELET ESTIMATE (11/12/2023 8:56 AM CDT) PLATELET ESTIMATE Adequate Adequate, No estimate 11/12/2023 10:23 AM CDT [facility] Blood BLOOD SPECIMEN / Unknown Butterfly / Unknown 11/12/2023 8:56 AM CDT 11/12/2023 8:57 AM CDT [facility] LABORATORY - 11/12/2023 10:23 AM CDT This procedure was originally ordered at [facility]. This procedure was originally ordered at [facility]. This procedure was originally ordered at [facility]. Radha Edouard MD HEMATOLOGY [facility] [address] [place] [address] * (ABNORMAL) MANUAL DIFFERENTIAL (11/12/2023 8:56 AM CDT) % NEUTROPHILS 26.0 % 11/12/2023 10:23 AM [facility] % LYMPHOCYTES 39.0 % 11/12/2023 10:23 AM [facility] % MONOCYTES 22.0 % 11/12/2023 10:23 AM [facility] % EOSINOPHILS 2.0 % 11/12/2023 10:23 AM [facility] % BASOPHILS 0.0 % 11/12/2023 10:23 AM [facility] % METAMYELOCYTES 1.0(H) <0.1 % 11/12/19 10:23 AM [facility] % MYELOCYTES 1.0(H) <0.1 % 11/12/2023 10:23 AM [facility] % PROMYELOCYTES 4.0(H) <0.1 % 10:23 AM [facility] % BLASTS 5.0(H) None Seen % 11/12/2023 10:23 AM [facility] NEUTROPHILS ABSOLUTE 0.8(L) 1.7 - 7.0 thou/cu mm 11/12/2023 10:23 AM [facility] LYMPHOCYTES ABSOLUTE 1.2 0.9 - 2.9 thou/cu mm 11/12/2023 10:23 AM [facility] MONOCYTES ABSOLUTE 0.7 <0.9 thou/cu mm 11/12/2023 10:23 AM CDT [facility] EOSINOPHILS ABSOLUTE 0.1 <0.5 thou/cu mm 11/12/2023 10:23 AM CDT [facility] BASOPHILS ABSOLUTE 0.0 <0.3 thou/cu mm 11/12/2023 10:23 AM CDT [facility] ABSOLUTE METAMYELOCYTES 0.0 <=0.0 thou/cu mm 11/12/2023 10:23 AM CDT [facility] ABSOLUTE MYELOCYTES 0.0 <=0.0 thou/cu mm 11/12/2023 10:23 AM CDT [facility] ABSOLUTE PROMYELOCYTES 0.1(H) <=0.0 thou/cu mm 11/12/2023 10:23 AM CDT [facility] ABSOLUTE BLASTS 0.2(H) <=0.0 thou/cu mm 11/12/2023 10:23 AM CDT [facility] Blood BLOOD SPECIMEN / Unknown Butterfly / Unknown 11/12/2023 8:56 AM CDT 11/12/2023 8:57 AM CDT [facility] LABORATORY - 11/12/2023 10:23 AM CDT This procedure was originally ordered at [facility]. This procedure was originally ordered at [facility]. This procedure was originally ordered at [facility]. Radha Edouard MD HEMATOLOGY Performing Organization Address [facility] Co de Phone Number [facility] [address] [place] [address] * PERIPHERAL BLD MORPHOLOGY (11/12/2023 8:56 AM CDT) Only the most recent of2 resultswithin the time period is included. Case Report Special Hematology Report ? Case: [id number] ? Authorizing Provider: ??Radha Edouard MD ?Collected: ? 11/12/2023 0856 ? Ordering Location: ? [facility] Cancer ? Received: ?11/12/2023 0857 ? [facility] ? Pathologist: ? Alfonso Ramesh, ? MD ? Specimen: ?Blood ? 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 6.5% BLASTS identified 2. 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 Moderate microcytic hypochromic anemia, suggestive of iron deficiency anemia 4. See comment 11/15/2023 1:55 PM T [facility] LABORAT[facility] Comment Since the last described peripheral blood morphology performed with the bone marrow biopsy 09/25/2023 ([id number]), the blast count has remained essentially the [...] also reviewed by Mari Armijo MT, MS ([facility]). 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 Chromosome analysis revealed a +8 mutation. Myeloid NGS was positive for ASXL1, BRAF, CEBPA, IDH1, and SRSF2 mutations. 11/12/23 08:56 CREATININE: 1.44 (H) eGFR: ? 53 (L) 11/15/2023 1:55 PM CDT [facility] CBC and Differential HEMATOLOGY PARAMETERS Tested at: ??[facility] ? RESULTS ??EXPECTED VALUES WBC: ? 3.1 ?4.5-33s9951/cumm ?DECREASED RBC: ? 3.49 ? 4.30-5.90 mil/cumm ??DECREASED HGB: ? 8.0 ?13.5-17.5 gm/di ? DECREASED HCT: ? 27.7 ? 37-53% ?DECREASED MCV: ? 79.0 ? 80-100 fl ? MICROCYTIC MCH: ? 22.9 ? 26-34 pg ?DECREASED MCHC: ?28.9 ? 32-36 gm/dl ? HYPOCHROMIC RDW: ? 22.3 ? 11.5-15.5% ?ELEVATED PLT: ? 357 ?140-234x1076/uL MPV: ? Unable to be determined ? [...] ??(0%) ? BLASTS 11/15/2023 1:55 PM CDT [facility] Reticulocytes Retic: 6.6 0.5-1.5% ELEVATED 11/15/2023 1:55 PM CDT [facility] Microscopic Description The final diagnosis is based on microscopic examination of an appropriately stained blood smear. 11/15/2023 1:55 PM CDT [facility] Additional Information Interpreted at [facility] - [address], [place] [address] 11/15/2023 1:55 PM CDT [facility] Blood BLOOD SPECIMEN / Unknown 11/12/2023 [...] Rfl: This procedure was originally ordered at [facility]. Radha Edouard MD HEMATOLOGY [facility] [address] [place] [address], [place] * (ABNORMAL) LD,TOTAL (11/12/2023 8:56 AM CDT) [facility] LD,TOTAL 411(H) 135 - 225 IU/L 11/12/2023 10:39 AM CDT [facility] Blood BLOOD SPECIMEN / Unknown Butterfly / Unknown 11/12/2023 8:56 AM CDT 11/12/2023 8:57 AM CDT Radha Edouard MD CHEMISTRY [facility] [address] [place] [address] * (ABNORMAL) RETICULOCYTES (11/12/2023 8:56 AM CDT) [facility] RETIC% 6.6(H) 0.5 - 1.5 % 11/12/2023 1:15 PM CDT [facility] TRAL LABORATORY RETIC (ABSOLUTE) 0.24(H) 0.03 - 0.08 mil/cu mm 11/12/2023 1:15 PM CDT [facility] TRAL LABORATORY Blood BLOOD SPECIMEN / Unknown Butterfly / Unknown 11/12/2023 8:56 AM CDT 11/12/2023 8:57 AM CDT Narrative [facility] - 11/12/2023 1:15 PM CDT This procedure was originally ordered at [facility]. Radha Edouard MD HEMATOLOGY [facility] [address] [place] [address], [place] * (ABNORMAL) HEPATIC FUNCTION PANEL (11/12/2023 8:56 AM CDT) [facility] ALBUMIN 2.9(L) 4.0 - 4.9 g/dL 11/12/2023 9:43 AM CDT [facility] PROTEIN,TOTAL 10.2(H) 6.0 - 8.0 g/dL 11/12/2023 9:43 AM CDT [facility] BILIRUBIN,TOTAL 0.5 0.0 - 1.2 mg/dL 11/12/2023 9:43 AM [facility] BILIRUBIN,DIRECT <0.2 0.0 - 0.3 mg/dL 11/12/2023 9:43 AM [facility] BILIRUBIN,INDIRE CT 11/12/2023 9:43 AM [facility] Comment:Unable to calculate, Direct Bili <0.2 ALK PHOSPHATASE 87 40 - 129 IU/L 11/12/2023 9:43 AM [facility] ALT (SGPT) <5(L) 10 - 50 IU/L 11/12/2023 9:43 AM [facility] AST (SGOT) 46 10 - 50 IU/L 11/12/2023 9:43 AM [facility] Blood BLOOD SPECIMEN / Unknown Butterfly / Unknown 11/12/2023 8:56 AM CDT 11/12/2023 8:57 AM CDT Radha Edouard MD CHEMISTRY [facility] [address] [place] [phone] * (ABNORMAL) BASIC METABOLIC PANEL (11/12/2023 8:56 AM CDT) SODIUM 132(L) 136 - 145 mmol/L 11/12/2023 9:28 AM [facility] POTASSIUM 4.0 3.5 - 5.1 mmol/L 11/12/2023 9:28 AM [facility] CHLORIDE 101 98 - 107 mmol/L 11/12/2023 9:28 AM [facility] CO2,TOTAL 22 22 - 29 mmol/L 11/12/2023 9:28 AM [facility] ANION GAP 9 5 - 18 11/12/2023 9:28 AM [facility] GLUCOSE 98 70 - 99 mg/dL 11/12/2023 9:28 AM [facility] CALCIUM 8.1(L) 8.8 - 10.2 mg/dL 11/12/2023 9:28 AM CDT [facility] BUN 17 8 - 23 mg/dL 11/12/2023 9:28 AM T [facility] CREATININE 1.44(H) 0.70 - 1.20 mg/dL 11/12/2023 9:28 AM T [facility] BUN/CREAT RATIO 12 10 - 20 9:28 AM T [facility] eGFR 53(L) >90 mL/min/1.7 3m2 11/12/2023 9:28 AM [facility] Comment:As of 2021, eG FR [...] 8:57 AM CDT Radha Edouard MD CHEMISTRY [facility] [address] [place] [address] * SCAN CORRESP-LABORATORY RESULTS (10/28/2023 12:00 AM [...] 12:00 PM CDT 09/25/2023 9:59 PM CDT aDvid Gordon MD LAB BILL ONLY Performing Organization Address [facility] Co de Phone Number [facility]-C[facility]TRAL LABORATORY [address] [place] [phone], [place] * MYELOID NGS (LAB ONLY) (09/25/2023 9:10 AM CDT) Bone Marrow (Bone Marrow Aspirate) 09/25/2023 9:10 AM CDT 09/26/2023 3:40 PM CDT David Gordon MD PATHOLOGY/CYTOLOGY Performing Organization Address [facility] Co de Phone Number [facility] [employer] [facility]ORAT[facility] [address] [place] [address], [place] * BM/LB CHROM (09/25/2023 9:10 AM CDT) Bone Marrow (Bone Marrow Aspirate) 09/25/2023 9:10 AM CDT 09/26/2023 2:58 PM CDT David Gordon MD LABORATORY Performing Organization Address [facility] de Phone Number [facility] [address] [place] [address], [place] * BM WETLAB (09/25/2023 9:10 AM CDT) Bone Marrow (Bone Marrow Aspirate) 09/25/2023 9:10 AM CDT 09/26/2023 2:58 PM CDT David Gordon MD LABORATORY Performing Organization Address [facility] Co de Phone Number [facility]ORY[facility]AL LAB[facility]ATORY [address] [place] [address], [place] * OC (09/25/2023 9:10 AM CDT) Bone Marrow (Bone Marrow Aspirate) 09/25/2023 9:10 AM CDT 09/26/2023 2:58 PM CDT David Gordon MD LABORATORY Performing Organization Address [facility] Co de Phone Number [facility]-C[facility]TRAL LABORATORY [address] [place] [phone], [place] * OB (09/25/2023 9:10 AM CDT) Bone Marrow (Bone Marrow Aspirate) 09/25/2023 9:10 AM CDT 09/26/2023 2:58 PM CDT David Gordon MD LABORATORY Performing Organization Address [facility] Co de Phone Number [facility] [address] [place] [address], [place] * CHROM TECH 2 (09/25/2023 9:10 AM CDT) Bone Marrow (Bone Marrow Aspirate) 09/25/2023 9:10 AM CDT 09/26/2023 2:58 PM CDT David Gordon MD LABORATORY Performing Organization Address [facility] Co de Phone Number [facility] [employer] [facility] LABORATORY [address] [place] [address], [place] * CHROM TECH 1 (09/25/2023 9:10 AM CDT) Bone Marrow (Bone Marrow Aspirate) 09/25/2023 9:10 AM CDT 09/26/2023 2:58 PM CDT David Gordon MD LABORATORY Performing Organization Address [facility] Co de Phone Number [facility] [address] [place] [address], [place] * BONE MARROW DIFFERENTIAL (09/25/2023 9:10 AM CDT) Bone Marrow (Bone Marrow Aspirate) 09/25/2023 9:10 AM CDT 09/29/2023 7:59 AM CDT David Gordon MD LABORATORY Performing Organization Address [facility] Co de Phone Number [facility] [address] [place] [address], [place] * CYTOGENETIC BONE MARROW STUDIES (09/25/2023 9:10 AM CDT) [facility] RFR Acute Myeloid Leukemia, myeloid neoplasm. 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 See comments. 10/02/2023 12:[address] [facility] _ 10/02/2023 12:[address] [facility] ISCN 47,XY,+8[14]/46,XY [6] 10/02/2023 12:[address] 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 ??Trisomy 8 is classified as an intermediate prognostic risk stratification category in AML (NCCN, 2023). Clinicopathologic correlation of these results is recommended. 10/02/2023 12:[address] [facility] COMMENTS A preliminary chromosome result was provided to Manny Alfredo MD on 09/29/2023. 10/02/2023 12:17 PM [facility] LAB TEST DETAILS Fully Analyzed Metaphases: ??20 Partially Analyzed Metaphases: ??0 Full Karyotypes: ??3 10/02/2023 12:[address] [facility] SOURCE Bone Marrow (NaHep) [id number] B1-2 10/02/2023 12:[address] [facility] METHODS Cultures used in chromosome analysis were non-stimulated. Chromosome analysis is performed on consecutive analyzable G-banded metaphases. 10/02/2023 12:[address] [facility] REFERENCES National Comprehensive Cancer Network. (2023). Acute Myeloid Leukemia (version 3.2023). Retrieved from https://www.nccn.o rg/professionals/p hysician_gls/pdf/a ml.pdf. Kenia Lowery, Alexei Dominguez, Gurjit Burden, Rachell Prado, Alivia Araujo, Sravani Garcia, Isai Wilson. (Eds): WHO Classification of Tumours of Haematopoietic and Lymphoid Tissues. (Revised 4th edition) IARC: Michael 2017. 10/02/2023 12:17 PM CDT [facility]-C ENTRAL LABORATORY DISCLAIMER This test was developed and its performance characteristics determined by the [facility]. It has not been cleared [...] clinical laboratory testing. 10/02/2023 12:17 PM CDT [facility] LAB[facility] Bone Marrow (Bone Marrow Aspirate) 09/25/2023 9:10 AM CDT 09/26/2023 2:58 PM CDT David Gordon MD LABORATORY Performing Organization Address City/State/[facility] Co de Phone Number [facility]-CENTRAL LABORATORY [address] [place] [address], * BONE MARROW STUDY (09/25/2023 9:10 AM CDT) Case Report Bone Marrow Pathology Report ?Case: [id number] ? Authorizing Provider: ??David Gordon MD ?Collected: ? 09/25/2023 0910 ? Ordering Location: ? [facility] C[facility]TRAL LAB ?Received: ?09/26/2023624 ? Pathologist: ? Manny Alfredo MD ? Specimens: ?? A) - Bone Marrow Aspirate ? B) - Bone Marrow Aspirate (Heparinized) ? C) - Bone Marrow Core Biopsy ? D) - Peripheral Blood ? 10/03/2023 8:51 AM T [facility] LABORAT[facility]- CENTRAL LABORATORY Amendment 10/03/2023 - Amendment to report [facility] Myeloid Targeted Next Generation Sequencing (NGS) results. Please see diagnosis and attached scanned report. Results are communicated with Dr. Edouard via Secure Chat on 10/03/[address] Alfredo. 10/03/2023 8:51 AM T [facility] Final Diagnosis [...] mutations; see attached report 10/03/2023 8:51 AM [facility] Amendment electronically signed [...] a defining cytogenetic abnormality.) 10/03/2023 8:51 AM [facility] Clinical Information Mr. Alba is a 68 y.o. With a peripheral blood morphology consistent with a myeloid neoplasm with 1-2% circulating blasts, moderate microcytic hypochromic anemia with reticulocytosis (6.7%), leukopenia reflecting mild absolute neutropenia with dysgranulopoiesis and lymphocytopenia, and mild absolute monocytosis ([id number], 09/10/23). A bone marrow biopsy is performed for further characterization. 10/03/2023 8:51 AM [facility] PROCEDURE A RIGHT lateral bone marrow biopsy and unilateral aspiration procedure is performed at [facility] on 09/25/23. VIVIANA Monterroso performed the procedure using an 8 gauge manual needle. The ordering physicians are Drs. Gordon and Silke. The specimen is inked orange. EVM 09/26/2023 10/03/2023 8:51 AM CDT [facility] CBC and Differential HEMATOLOGY PARAMETERS Tested at: ??[facility] ? RESULTS ??EXPECTED VALUES WBC: ? 1.6 ?4.5-16x2885/cumm ?DECREASED RBC: ? 3.8 ?4.30-5.90 mil/cumm ??DECREASED HGB: ? 8.5 ?13.5-17.5 gm/di ? DECREASED HCT: ? 30.7 ? 37-53% ?DECREASED MCV: ? 81.0 ? 80-100 fl ? NORMOCYTIC MCH: ? 23.0 ? 26-34 pg ?DECREASED MCHC: ?28.0 ? 32-36 gm/dl ? HYPOCHROMIC RDW: ? 22.5 ? 11.5-15.5% ?ELEVATED PLT: ? 253 ?140-725p9726/uL ? Retic: ?? 7.91 ?0.5-1.5% ? ELEVATED Differential ?Tested at: ??[facility] ?Absolute (%) ?Expected (%) ?(x10*9/L) ? (x10*9/L) Neutrophils: ?0.5 (31.3) ?1.7-7.0 (42-72%) ??DECREASED Lymphocytes: ?0.6 (37.5) ?0.9-2.9 (20-44%) ??DECREASED Monocytes: ?0.4 (25) ? <0.9 (0-11%) ? Blasts: ? 0.1 (6.3) ? 0 ??(0%) ? BLASTS 10/03/2023 8:51 AM T [facility] Reticulocytes Retic: 7.91 0.5-1.5% ELEVATED 10/03/2023 8:51 AM [facility] Bone Marrow Differential Blasts: ?23.6 ?0.2-1.5% ?ELEVATED Neutrophils & precursors: ??14.4 ?58.0-65.0% ?DECREASED Erythroid precursors: ?38 ?18.0-24.0% ?ELEVATED Lymphocytes: ? 21 ? 3.0-24.0% ? Monocytes: ? 2.2 ? 0.7-2.8% ? Plasma cells: ?0.8 ? 0.1-1.5% ? M:E Ratio: ? 14 : 38 10/03/2023 8:51 AM [facility] Microscopic Description The final diagnosis is based on microscopic examination of an appropriately stained blood smear. SPECIMENS EXAMINED: Peripheral blood Aspirate direct and concentrate smears: ??Adequate Particle crush smears Touch imprints Clot section Bone core trephine sample (decalcified): ??Adequate, 1.6 cm Bone core and clot section color: ??Antelope PERIPHERAL BLOOD: The peripheral smear features support [...] Ringed sideroblasts: Absent 10/03/2023 8:51 AM CDT [facility] Flow Cytometry Summary Diagnostic [...] Trace positive markers: CD7/CD36 Negative markers: CD65/CD15/CD10/CD64 /ZP991h/CD14/CD56/C D11b/CD16/CD2/CD5/C D235a/CD19/CD22(CYT O)/CD79a(CYTO)/TdT( n)/CD3(CYTO) Quality Assessment Viability (7-AAD): 62% Nucleated cells analyzed: 79370 Limit of detection (LOD): 0.1% These results and cytograms have been verified by Dr. Alfredo. This test was developed and its performance characteristics [facility]. It has not been cleared or [...] 09/26/2023 3:04 PM Verifying Flow Tech: Flor Haqlli, 09/26/2023 3:50 PM 10/03/2023 8:51 AM CDT [facility] Cytogenetics Summary Cytogenetic testing has been ordered and will be reported separately. 10/03/2023 8:51 AM CDT [facility] Other Testing Immunostains were performed on the bone core biopsy. CD34 (blast marker) (manual morphometry: ??25% 10/03/2023 8:51 AM CDT [facility] Additional Information Interpreted at [facility] - [address] [facility] [address], [place] [address] Immunohistochemistr y controls were reviewed and approved by the pathologist during this examination. 10/03/2023 8:51 AM CDT [facility] Bone Marrow (Bone Marrow Aspirate) [...] 6:25 AM CDT David Gordon MD LABORATORY [facility] [address] [place] [address], * PATH TISSUE EXAM (08/29/2023 8:40 AM CDT) Case Report Pathology Report ?Case: [id number] ? Authorizing Provider: ??Eloina Paniagua MD ?Collected: ? 08/29/2023 0840 ? Ordering Location: ? [facility] ?Received: ?08/29/2023 1517 ? Pathologist: ? Georgie Rocha MD ? Specimen: ?Right Leg, Right leg chronic wound necrotic tissue ? 09/03/2023 3:31 PM CDT [facility]-C ENTRAL LABORATORY Final Diagnosis SKIN AND SOFT TISSUE, RIGHT LEG CHRONIC WOUND, EXCISION: 1. ??Ulcer bed with reactive epithelial hyperplasia, dense dermal mixed inflammatory infiltrate and prominent fibrosis 2. ??No evidence of vasculitis or malignancy right leg 09/03/2023 3:31 PM CDT [facility]AL LABORAT[facility] Clinical Information Right leg chronic wound necrotic tissue. 09/03/2023 3:31 PM CDT [facility] Gross Description A) Received [...] red-brown skeletal. No solid mass is identified. Data Architect Manager sections are submitted in 2 cassettes. TTP 08/29/2023 09/03/2023 3:31 PM CDT [facility] Microscopic Description The final diagnosis is based on microscopic examination of appropriate sections of all specimens. The presence of blue ink is confirmed on tissue sections. 09/03/2023 3:31 PM CDT [facility] Additional Information Interpreted at [facility] - [address] [facility] [address], [place] [address] 09/03/2023 3:31 PM CDT [facility] Other (Right Leg) 08/29/2023 8:40 AM CDT 08/29/2023 3:17 PM CDT Eloina Paniagua MD PATHOLOGY/CYTOLOGY Performing Organization Address City/State/[facility] Co de Phone Number [facility] [address] [place] [address], * SCAN-CT INTERPRETATION (08/27/2023 12:00 AM CDT) Anatomical Region Laterality Modality Other Scanner OTHER * CT CHEST ABDOMEN PELVIS WO (01/03/2023 [...] Non Reactive Non Reactive 10/11/2022 12:08 PM T [facility] ([facility] Blood BLOOD SPECIMEN / Unknown Venipuncture / Unknown 10/09/2022 9:06 AM CDT 10/09/2022 9:06 AM CDT Narrative [facility] ([facility]) - 10/11/2022 12:08 PM CDT Performed at: ??01 - [facility] [address] [facility], [place], [place] ??[id number] [place] Stitch Cleaner: Zane Rebolledo MD, Phone: ??[phone] Radha Edouard MD LABORATORY [facility] ([facility]) [address] [place] [address], [place] * CT CHEST ABDOMEN PELVIS W [...] 100 - 199 mg/dL 09/09/2022 12:53 PM [facility] TRIGLYCERIDES 77 <150 mg/dL 09/09/2022 12:53 PM T [facility] HDL CHOLESTEROL 34(L) >40 mg/dL 12:53 PM CDT [facility] NON-HDL CHOLESTEROL 115 <145 mg/dl 09/09/2022 12:53 PM CDT [facility] CHOL/HDL RATIO 4.38 <4.50 09/09/2022 12:53 PM CDT [facility] LDL CHOLESTEROL 100 <=130 mg/dL 09/09/2022 12:53 PM CDT [facility] VLDL CHOLESTEROL 15 <=30 mg/dL 09/09/2022 12:53 PM CDT [facility] PROVIDER ORDERED STATUS RANDOM 09/09/2022 12:53 PM CDT [facility] Blood BLOOD SPECIMEN / Unknown Butterfly / Unknown 09/09/2022 12:06 PM CDT 09/09/2022 12:07 PM CDT David Ambrocio MD CHEMISTRY [facility] [address] [place] [address] from Last 3 Months or Most Recently [...] Discussion: Reviewed Preferences wit h Care Teams Senior Web Designer Relationship Specialty Start Date End Date David Ambrocio MD [address] [place] [address] PCP - General Family Practice 11/27/22 Elvira Morin, RN [address] [place] [address] Nurse Navigator - Oncology Registered Nurse 10/18/22 Radha Edouard MD [address] [place] [address] Medical Oncologist Hematology and Oncology 11/21/22 Lizeth Alarcon, SAMPLE CARD MAKER [address] [place] [address] Nurse Practitioner Hematology and Oncology 11/21/22 Jaylon Raymond LSW [address] [place] [address] Boom Tender 01/06/23 [facility] [address] [place] [address] 01/21/23
== END 2023-11-25 14:41 | disposition home or self-care (01) ==
LOC: WOUND 14:40
PROVIDERS: PCP Internal Medicine; Visit Provider Nurse Practitioner Family
DX: I87.311 Chronic venous hypertension (idiopathic) with ulcer of right lower extremity (principal); L97.212 Non-pressure chronic ulcer of right calf with fat layer exposed; D64.9 Anemia, unspecified
CPT/HCPCS: 11042; 11045

== ENCOUNTER 2023-12-02 14:42 | Outpatient (CLI) | payer MEDICARE, BC, SELFPAY ==
--- OUTSIDE RECORDS SUMMARY | 2023-12-02 14:44 | XMS_ITS | Clinical Summary ---
Author Organization [facility] Address [place], [place] [address] Care Team Providers Care Magnet Placer Name Role Phone Elvira Morin Stefano RN Unavailable Radha Edouard MD Unavailable [phone] Lizeth Alarcon PLATFORM MAN Unavailable David Ambrocio MD Primary Care Provider Jaylon RaymondW Unavailable [phone] [facility] Un[facility] Allergies Active Allergy [...] Description 11/19/2023 11:15 AM CDT Office Visit [facility] [address] [place] [address] Lizeth Alarcon, PLATFORM MAN Follow Up (Pancytopenia (HC) [D61.818]//) 11/19/2023 Travel 11/19/2023 Telephone [facility] [address] [place] [address] Lizeth Alarcon, PLATFORM MAN Appointment 11/12/2023 8:50 AM CDT - 11/12/2023 11:59 PM CDT Hospital Encounter [facility] [address] [place] [address] Pancytopenia (HC) [D61.818] 11/12/2023 Travel 10/28/2023 Orders Only [facility] Scanner 1 scan: (1-Ord) INCOMING RECORDS-CT, [facility], 10/28/2023 10/28/2023 Orders Only [facility] Scanner 1 scan: (1-Ord) INCOMING RECORDS-LABS, [facility], 10/28/2023 10/28/2023 Orders Only [facility] Scanner 1 scan: (1-Ord) INCOMING RECORDS-LABS, [facility], 10/28/2023 10/27/2023 Telephone [facility] [address] [place] [address] [facility] Referral (AML) 09/25/2023 Lab Requisition [facility] [phone] David Gordon MD 09/10/2023 Lab Requisition [facility] [phone] David Gordon MD from Last 3 Months Immunizations Name Administration Dates Next Due Td (Age >=7 Years) 07/28/1996 Td, Preservative Free (age >= 7 Years) Tdap 08/28/2022 Family History Medical History Relation [...] Date Smoking Tobacco: Every Day Cigarettes 1 55.7 Started: 1968 Passive Smoke Exposure: Current Smokeless [...] 2020 Depression screening for age 12+ 09/10/2023 09/10/19, [...] Pancytopenia (HC) [D61.818] HEPATIC FUNCTION PANEL Today 11/12/2023 8:56 AM CDT Pancytopenia (HC) [D61.818] RETICULOCYTES [...] AM CDT MYELOID NGS (LAB ONLY) Routine 09/25/2023 9:10 AM CDT CYTOGENETICS BONE MARROW Routine 09/25/2023 9:10 AM CDT LAB TRACKING EVENT Routine 09/10/2023 10 :34 AM CDT PERIPHERAL BLD MORPHOLOGY Routine 09/10/2023 10:[address] CHEST ABDOMEN PELVIS WO [...] 11.0 thou/cu mm 11/12/2023 10:23 AM CDT [facility] RED BLOOD COUNT 3.49(L) 4.30 - 5.90 mil/cu mm 11/12/2023 10:23 AM [facility] HEMOGLOBIN 8.0(L) 13.5 - 17.5 g/dL 11/12/2023 10:23 AM [facility] HEMATOCRIT 27.7(L) 37.0 - 53.0 % 11/12/2023 10:23 AM [facility] MCV 79(L) 80 - 100 fL 11/12/2023 10:23 AM [facility] MCH 22.9(L) 26.0 - 34.0 pg 11/12/2023 10:23 AM [facility] MCHC 28.9(L) 32.0 - 36.0 g/dL 11/12/2023 10:23 AM [facility] RDW 22.3(H) 11.5 - 15.5 % 11/12/2023 10:23 AM [facility] PLATELET COUNT 357 140 - 440 thou/cu mm 11/12/2023 10:23 AM [facility] MPV 11/12/2023 10:23 AM [facility] Comment:Unable to be determi amada Blood BLOOD SPECIMEN / Unknown Butterfly / Unknown 11/12/2023 8:56 AM CDT 11/12/2023 8:57 AM [facility] LABORATORY - 11/12/2023 10:23 AM CDT This procedure was originally ordered at [facility]. This procedure was originally ordered at [facility]. This procedure was originally ordered at [facility]. Radha Edouard MD HEMATOLOGY [facility] [address] [place] [address] * (ABNORMAL) RED CELL MORPHOLOGY (11/12/2023 8:56 AM CDT) ELLIPTOCYTES Moderate 11/12/2023 10:23 AM [facility] POLYCHROMASIA Slight 11/12/2023 10:23 AM [facility] SCHISTOCYTES Few 11/12/2023 10:23 AM CDT [facility] TARGET CELLS Few 11/12/2023 10:23 AM CDT [facility] TEARDROP CELLS Moderate 11/12/2023 10:23 AM T [facility] RBC COMMENT Present(A) RBC morphology appears normal, RBC morphology within normal limits for newborns. 11/12/2023 10:23 AM CDT [facility] LARGE PLATELETS Present 10:23 AM CDT [facility] Blood BLOOD SPECIMEN / Unknown Butterfly / Unknown 11/12/2023 8:56 AM CDT 11/12/2023 8:57 AM CDT [facility] LABORATORY - 11/12/2023 10:23 AM CDT This procedure was originally ordered at [facility]. This procedure was originally ordered at [facility]. This procedure was originally ordered at [facility]. Radha Edouard MD HEMATOLOGY Performing Organization Address City/[facility] Co de Phone Number [facility] [address] [place] [address] * PLATELET ESTIMATE (11/12/2023 8:56 AM CDT) PLATELET ESTIMATE Adequate Adequate, No estimate 11/12/2023 10:23 AM CDT [facility] Blood BLOOD SPECIMEN / Unknown Butterfly / Unknown 11/12/2023 8:56 AM CDT 11/12/2023 8:57 AM CDT [facility] LABORATORY - 11/12/2023 10:23 AM CDT This procedure was originally ordered at [facility]. This procedure was originally ordered at [facility]. This procedure was originally ordered at [facility]. Radha Edouard MD HEMATOLOGY Performing Organization Address City/[facility]/ZIP Co de Phone Number [facility] [address] [place] [address] * (ABNORMAL) MANUAL DIFFERENTIAL (11/12/2023 8:56 AM T) % NEUTROPHILS 26.0 % 11/12/2023 10:23 AM [facility] % LYMPHOCYTES 39.0 % 11/12/2023 10:23 AM [facility] % MONOCYTES 22.0 % 11/12/2023 10:23 AM [facility] % EOSINOPHILS 2.0 % 11/12/2023 10:23 AM [facility] % BASOPHILS 0.0 % 11/12/2023 10:23 AM [facility] % METAMYELOCYTES 1.0(H) <0.1 % 11/12/19 10:23 AM [facility] % MYELOCYTES 1.0(H) <0.1 % 11/12/2023 10:23 AM [facility] % PROMYELOCYTES 4.0(H) <0.1 % 10:23 AM [facility] % BLASTS 5.0(H) None Seen % 11/12/2023 10:23 AM [facility] NEUTROPHILS ABSOLUTE 0.8(L) 1.7 - 7.0 thou/cu mm 11/12/2023 10:23 AM [facility] LYMPHOCYTES ABSOLUTE 1.2 0.9 - 2.9 thou/cu mm 11/12/2023 10:23 AM [facility] MONOCYTES ABSOLUTE 0.7 <0.9 thou/cu mm 11/12/2023 10:23 AM [facility] EOSINOPHILS ABSOLUTE 0.1 <0.5 thou/cu mm 11/12/2023 10:23 AM [facility] BASOPHILS ABSOLUTE 0.0 <0.3 thou/cu mm 11/12/2023 10:23 AM [facility] ABSOLUTE METAMYELOCYTES 0.0 <=0.0 thou/cu mm 11/12/2023 10:23 AM [facility] ABSOLUTE MYELOCYTES 0.0 <=0.0 thou/cu mm 11/12/2023 10:23 AM CDT [facility] ABSOLUTE PROMYELOCYTES 0.1(H) <=0.0 thou/cu mm 11/12/2023 10:23 AM CDT [facility] ABSOLUTE BLASTS 0.2(H) <=0.0 thou/cu mm 11/12/2023 10:23 AM CDT [facility] Blood BLOOD SPECIMEN / Unknown Butterfly / Unknown 11/12/2023 8:56 AM CDT 11/12/2023 8:57 AM CDT Narrative [facility] - 11/12/2023 10:23 AM CDT This procedure was originally ordered at [facility]. This procedure was originally ordered at [facility]. This procedure was originally ordered at [facility]. Radha Edouard MD HEMATOLOGY Performing Organization Address City/State/[facility] Co de Phone Number [facility] [address] [place] [address] * PERIPHERAL BLD MORPHOLOGY (11/12/2023 8:56 AM CDT) Only the most recent of2 resultswithin the time period is included. Case Report Special Hematology Report ? Case: [id number] ? Authorizing Provider: ??Radha Edouard MD ?Collected: ? 11/12/2023 0856 ? Ordering Location: ? [facility] ? Received: ?11/12/2023 0857 ? [facility] ? Pathologist: ? Alfonso Ramesh, ? MD ? Specimen: ?Blood ? 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 6.5% BLASTS identified 2. 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 Moderate microcytic hypochromic anemia, suggestive of iron deficiency anemia 4. See comment 11/15/2023 1:55 PM CDT [facility] Comment Since the last described peripheral blood morphology performed with the bone marrow biopsy 09/25/2023 ([id number]), the blast count has remained essentially the [...] also reviewed by Mari Armijo MT, MS ([facility]). 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 Chromosome analysis revealed a +8 mutation. Myeloid NGS was positive for ASXL1, BRAF, CEBPA, IDH1, and SRSF2 mutations. 11/12/23 08:56 CREATININE: 1.44 (H) eGFR: ? 53 (L) 11/15/2023 1:55 PM CDT [facility]- CENTRAL LABORATORY CBC and Differential HEMATOLOGY PARAMETERS Tested at: ??[facility] ? RESULTS ??EXPECTED VALUES WBC: ? 3.1 ?4.5-61w4732/cumm ?DECREASED RBC: ? 3.49 ? 4.30-5.90 mil/cumm ??DECREASED HGB: ? 8.0 ?13.5-17.5 gm/di ? DECREASED HCT: ? 27.7 ? 37-53% ?DECREASED MCV: ? 79.0 ? 80-100 fl ? MICROCYTIC MCH: ? 22.9 ? 26-34 pg ?DECREASED MCHC: ?28.9 ? 32-36 gm/dl ? HYPOCHROMIC RDW: ? 22.3 ? 11.5-15.5% ?ELEVATED PLT: ? 357 ?140-660a8122/uL MPV: ? Unable to be determined ? [...] ??(0%) ? BLASTS 11/15/2023 1:55 PM CDT [facility] Reticulocytes Retic: 6.6 0.5-1.5% ELEVATED 11/15/2023 1:55 PM CDT [facility] Microscopic Description The final diagnosis is based on microscopic examination of an appropriately stained blood smear. 11/15/2023 1:55 PM CDT [facility] Additional Information Interpreted at [facility] - [address], [place] [address] 11/15/2023 1:55 PM CDT [facility]- CENTRAL LABORATORY Blood BLOOD SPECIMEN / Unknown [...] Rfl: This procedure was originally ordered at [facility]. Radha Edouard MD HEMATOLOGY Performing Organization Address City/State/[facility] Co de Phone Number [facility]-CENTRAL LABORATORY [address] [place] [address], * (ABNORMAL) LD,TOTAL (11/12/2023 8:56 AM CDT) LD,TOTAL 411(H) 135 - 225 IU/L 11/12/2023 10:39 AM CDT [facility] Blood BLOOD SPECIMEN / Unknown Butterfly / Unknown 11/12/2023 8:56 AM CDT 11/12/2023 8:57 AM CDT Radha Edouard MD CHEMISTRY [facility] [address] [place] [address] * (ABNORMAL) RETICULOCYTES (11/12/2023 8:56 AM CDT) [facility] RETIC% 6.6(H) 0.5 - 1.5 % 11/12/2023 1:15 PM CDT [facility] RETIC (ABSOLUTE) 0.24(H) 0.03 - 0.08 mil/cu mm 11/12/2023 1:15 PM CDT [facility] TR[facility] LABORATORY Blood BLOOD SPECIMEN / Unknown Butterfly / Unknown 11/12/2023 8:56 AM CDT 11/12/2023 8:57 AM CDT Narrative [facility] - 11/12/2023 1:15 PM CDT This procedure was originally ordered at [facility]. Radha Edouard MD HEMATOLOGY Performing Organization Address [facility] Co de Phone Number [facility] [address] [place] [phone], * (ABNORMAL) HEPATIC FUNCTION PANEL (11/12/2023 8:56 AM CDT) [facility] ALBUMIN 2.9(L) 4.0 - 4.9 g/dL 11/12/2023 9:43 AM CDT [facility] PROTEIN,TOTAL 10.2(H) 6.0 - 8.0 g/dL 11/12/2023 9:43 AM CDT [facility] BILIRUBIN,TOTAL 0.5 0.0 - 1.2 mg/dL 11/12/2023 9:43 AM CDT [facility] BILIRUBIN,DIRECT <0.2 0.0 - 0.3 mg/dL 11/12/2023 9:43 AM CDT [facility] BILIRUBIN,INDIRE CT 11/12/2023 9:43 AM CDT [facility] Comment:Unable to calculate, Direct Bili <0.2 ALK PHOSPHATASE 87 40 - 129 IU/L 11/12/2023 9:43 AM [facility] ALT (SGPT) <5(L) 10 - 50 IU/L 11/12/2023 9:43 AM [facility] AST (SGOT) 46 10 - 50 IU/L 11/12/2023 9:43 AM [facility] Blood BLOOD SPECIMEN / Unknown Butterfly / Unknown 11/12/2023 8:56 AM CDT 11/12/2023 8:57 AM CDT Radha Edouard MD CHEMISTRY [facility] [address] [place] [address] * (ABNORMAL) BASIC METABOLIC PANEL (11/12/2023 8:56 AM CDT) SODIUM 132(L) 136 - 145 mmol/L 11/12/2023 9:28 AM [facility] POTASSIUM 4.0 3.5 - 5.1 mmol/L 11/12/2023 9:28 AM [facility] CHLORIDE 101 98 - 107 mmol/L 11/12/2023 9:28 AM [facility] CO2,TOTAL 22 22 - 29 mmol/L 11/12/2023 9:28 AM [facility] ANION GAP 9 5 - 18 11/12/2023 9:28 AM [facility] GLUCOSE 98 70 - 99 mg/dL 11/12/2023 9:28 AM [facility] CALCIUM 8.1(L) 8.8 - 10.2 mg/dL 11/12/2023 9:28 AM [facility] BUN 17 8 - 23 mg/dL 11/12/2023 9:28 AM [facility] CREATININE 1.44(H) 0.70 - 1.20 mg/dL 11/12/2023 9:28 AM [facility] BUN/CREAT RATIO 12 10 - 20 9:28 AM [facility] eGFR 53(L) >90 mL/min/1.7 3m2 11/12/2023 9:28 AM CDT [facility] Comment:As of 2021, eG FR [...] 8:57 AM CDT Radha Edouard MD CHEMISTRY Performing Organization Address [facility] Co de Phone Number [facility] [address] [place] [address] * SCAN CORRESP-LABORATORY RESULTS (10/28/2023 12:00 AM CDT) Only the most recent of2 resultswithin the time period is included. Scanner OTHER * SCAN CORRESP-IMAGING (10/28/2023 12:00 AM CDT) Anatomical Region Laterality Modality Other Scanner OTHER * LAB TRACKING EVENT (09/25/2023 12:00 PM CDT) Only the most recent of2 resultswithin the time period is included. Other (Other) Client Collect / Unknown 09/25/2023 12:00 PM CDT 09/25/2023 9:59 PM CDT David Gordon MD LAB BILL ONLY Performing Organization Address [facility]/ZIP Co de Phone Number [facility]-CENTRAL LABORATORY [address] [place] [address], * MYELOID NGS (LAB ONLY) (09/25/2023 9:10 AM CDT) Bone Marrow (Bone Marrow Aspirate) 09/25/2023 9:10 AM CDT 09/26/2023 3:40 PM CDT David Gordon MD PATHOLOGY/CYTOLOGY Performing Organization Address [facility]/ZIP Co de Phone Number [facility] [employer] [facility]ORAT[facility] [address] [place] [phone], [place] * BM/LB CHROM (09/25/2023 9:10 AM CDT) Bone Marrow (Bone Marrow Aspirate) 09/25/2023 9:10 AM CDT 09/26/2023 2:58 PM CDT David Gordon MD LABORATORY Performing Organization Address [facility] de Phone Number [facility] [address] [place] [address], [place] * BM WETLAB (09/25/2023 9:10 AM CDT) Bone Marrow (Bone Marrow Aspirate) 09/25/2023 9:10 AM CDT 09/26/2023 2:58 PM CDT David Gordon MD LABORATORY Performing Organization Address [facility] de Phone Number [facility] [employer] [facility] [address] [place] [phone], [place] * OC (09/25/2023 9:10 AM CDT) Bone Marrow (Bone Marrow Aspirate) 09/25/2023 9:10 AM CDT 09/26/2023 2:58 PM CDT David Gordon MD LABORATORY Performing Organization Address [facility] de Phone Number [facility] [employer] [facility] [address] [place] [phone], [place] * OB (09/25/2023 9:10 AM CDT) Bone Marrow (Bone Marrow Aspirate) 09/25/2023 9:10 AM CDT 09/26/2023 2:58 PM CDT David Gordon MD LABORATORY Performing Organization Address [facility] Co de Phone Number [facility] [employer] [facility] [address] [place] [phone], [place] * CHROM TECH 2 (09/25/2023 9:10 AM CDT) Bone Marrow (Bone Marrow Aspirate) 09/25/2023 9:10 AM CDT 09/26/2023 2:58 PM CDT David Gordon MD LABORATORY Performing Organization Address [facility] Co de Phone Number [facility]AT[facility]-CENTRAL LABORATORY [address] [place] [phone], [place] * CHROM TECH 1 (09/25/2023 9:10 AM CDT) Bone Marrow (Bone Marrow Aspirate) 09/25/2023 9:10 AM CDT 09/26/2023 2:58 PM CDT David Gordon MD LABORATORY Performing Organization Address [facility] Co de Phone Number [facility] LABORATORY [address] [place] [address], [place] * BONE MARROW DIFFERENTIAL (09/25/2023 9:10 AM CDT) Bone Marrow (Bone Marrow Aspirate) 09/25/2023 9:10 AM CDT 09/29/2023 7:59 AM CDT David Gordon MD LABORATORY Performing Organization Address [facility] Co de Phone Number [facility]iglota[facility]ENTR[facility]ORY [address] [place] [address], [place] * CYTOGENETIC BONE MARROW STUDIES (09/25/2023 9:10 AM CDT) RFR Acute Myeloid Leukemia, myeloid neoplasm. 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 See comments. 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 ??Trisomy 8 is classified as an intermediate prognostic risk stratification category in AML (NCCN, 2024). Clinicopathologic correlation of these results is recommended. 10/02/2023 12:17 PM CDT [facility] ENTRAL LABORATORY COMMENTS A preliminary chromosome result was provided to Manny Alfredo MD on 09/29/2023. 10/02/2023 12:17 PM CDT [facility] ENTRAL LABORATORY LAB TEST DETAILS Fully Analyzed Metaphases: ??20 Partially Analyzed Metaphases: ??0 Full Karyotypes: ??3 10/02/2023 12:17 PM CDT [facility] LABOR[facility] SOURCE Bone Marrow (NaHep) [id number] B1-2 10/02/2023 12:17 PM CDT [facility] EN[facility]PA LABORATORY METHODS Cultures used in chromosome analysis were non-stimulated. Chromosome analysis is performed on consecutive analyzable G-banded metaphases. 10/02/2023 12:17 PM CDT [facility] ENTRAL LABORATORY REFERENCES National Comprehensive Cancer Network. (2023). Acute Myeloid Leukemia (version 3.2023). Retrieved from https://www.nccn.o rg/professionals/p hysician_gls/pdf/a ml.pdf. Kenia Germain., Alexei Dominguez, Gurjit Pillai., Rachell Kebede., Alivia Nesbitt., Sravani Fortune., Isai Wilson. (Eds): WHO Classification of Tumours of Haematopoietic and Lymphoid Tissues. (Revised 4th edition) IARC: Michael 2017. 10/02/2023 12:17 PM CDT [facility] DISCLAIMER This test was developed and its performance characteristics determined by the [facility]. It has not been [...] clinical laboratory testing. 10/02/2023 12:17 PM CDT [facility] [employer] LABORATORY-C ENTRAL LABORATORY Bone Marrow (Bone Marrow Aspirate) 09/25/2023 9:10 AM CDT 09/26/2023 2:58 PM CDT David Gordon MD LABORATORY [facility] LAB[facility]-CENTRAL LABORATORY [address] [place] [address], * BONE MARROW STUDY (09/25/2023 9:10 AM CDT) Case Report Bone Marrow Pathology Report ?Case: [id number] ? Authorizing Provider: ??David Gordon MD ?Collected: ? 09/25/2023 0910 ? Ordering Location: ? [facility] C[facility]TRAL LAB ?Received: ?09/26/2023 0625 ? Pathologist: ? Manny Alfredo MD ? Specimens: ?? A) - Bone Marrow Aspirate ? B) - Bone Marrow Aspirate (Heparinized) ? C) - Bone Marrow Core Biopsy ? D) - Peripheral Blood ? 10/03/2023 8:51 AM [facility] CENTRAL LABORATORY Amendment 10/03/2023 - Amendment to report [facility] Myeloid Targeted Next Generation Sequencing (NGS) results. Please see diagnosis and attached scanned report. Results are communicated with Dr. Edouard via Secure Chat on 10/03/[address] Alfredo. 10/03/2023 8:51 AM [facility] LAB[facility]ATORY Final Diagnosis [...] mutations; see attached report 10/03/2023 8:51 AM [facility] Amendment electronically signed by Manny [...] a defining cytogenetic abnormality.) 10/03/2023 8:51 AM [facility] Clinical Information Mr. Alba is a 68 y.o. With a peripheral blood morphology consistent with a myeloid neoplasm with 1-2% circulating blasts, moderate microcytic hypochromic anemia with reticulocytosis (6.7%), leukopenia reflecting mild absolute neutropenia with dysgranulopoiesis and lymphocytopenia, and mild absolute monocytosis ([id number], 09/10/23). A bone marrow biopsy is performed for further characterization. 10/03/2023 8:51 AM [facility] PROCEDURE A RIGHT lateral bone marrow biopsy and unilateral aspiration procedure is performed at [facility] on 09/25/23. VIVIANA Monterroso performed the procedure using an 8 gauge manual needle. The ordering physicians are Drs. Gordon and Silke. The specimen is inked orange. EVM 09/26/2023 10/03/2023 8:51 AM [facility] CBC and Differential HEMATOLOGY PARAMETERS Tested at: ??[facility] ? RESULTS ??EXPECTED VALUES WBC: ? 1.6 ?4.5-34e4280/cumm ?DECREASED RBC: ? 3.8 ?4.30-5.90 mil/cumm ??DECREASED HGB: ? 8.5 ?13.5-17.5 gm/di ? DECREASED HCT: ? 30.7 ? 37-53% ?DECREASED MCV: ? 81.0 ? 80-100 fl ? NORMOCYTIC MCH: ? 23.0 ? 26-34 pg ?DECREASED MCHC: ?28.0 ? 32-36 gm/dl ? HYPOCHROMIC RDW: ? 22.5 ? 11.5-15.5% ?ELEVATED PLT: ? 253 ?[id number]/uL ? Retic: ?? 7.91 ?0.5-1.5% ? ELEVATED Differential ?Tested at: ??[facility] ?Absolute (%) ?Expected (%) ?(x10*9/L) ? (x10*9/L) Neutrophils: ?0.5 (31.3) ?1.7-7.0 (42-72%) ??DECREASED Lymphocytes: ?0.6 (37.5) ?0.9-2.9 (20-44%) ??DECREASED Monocytes: ?0.4 (25) ? <0.9 (0-11%) ? Blasts: ? 0.1 (6.3) ? 0 ??(0%) ? BLASTS 10/03/2023 8:51 AM CDT [facility] Reticulocytes Retic: 7.91 0.5-1.5% ELEVATED 10/03/2023 8:51 AM [facility] Bone Marrow Differential Blasts: ?23.6 ?0.2-1.5% ?ELEVATED Neutrophils & precursors: ??14.4 ?58.0-65.0% ?DECREASED Erythroid precursors: ?38 ?18.0-24.0% ?ELEVATED Lymphocytes: ? 21 ? 3.0-24.0% ? Monocytes: ? 2.2 ? 0.7-2.8% ? Plasma cells: ?0.8 ? 0.1-1.5% ? M:E Ratio: ? 14 : 38 10/03/2023 8:51 AM [facility] Microscopic Description The final diagnosis is based on microscopic examination of an appropriately stained blood smear. SPECIMENS EXAMINED: Peripheral blood Aspirate direct and concentrate smears: ??Adequate Particle crush smears Touch imprints Clot section Bone core trephine sample (decalcified): ??Adequate, 1.6 cm Bone core and clot section color: ??[place] PERIPHERAL BLOOD: The peripheral smear features support [...] Ringed sideroblasts: Absent 10/03/2023 8:51 AM CDT [facility] Flow Cytometry Summary Diagnostic Acute [...] Trace positive markers: CD7/CD36 Negative markers: CD65/CD15/CD10/CD64 /FG968z/CD14/CD56/C D11b/CD16/CD2/CD5/C D235a/CD19/CD22(CYT O)/CD79a(CYTO)/TdT( n)/CD3(CYTO) Quality Assessment Viability (7-AAD): 62% Nucleated cells analyzed: 49083 Limit of detection (LOD): 0.1% These results and cytograms have been verified by Dr. Alfredo. This test was developed and its performance characteristics verified by [facility]. It has not been cleared or approved [...] 09/26/2023 3:50 PM 10/03/2023 8:51 AM CDT [facility] Cytogenetics Summary Cytogenetic testing has been ordered and will be reported separately. 10/03/2023 8:51 AM CDT [facility] Other Testing Immunostains were performed on the bone core biopsy. CD34 (blast marker) (manual morphometry: ??25% 10/03/2023 8:51 AM CDT [facility] Additional Information Interpreted at [facility] - [address] [place] [id number] Immunohistochemistr y controls were reviewed and approved [...] 6:25 AM CDT David Gordon MD LABORATORY [facility] [address] [place] [address], [place] * CT CHEST ABDOMEN PELVIS WO (01/03/2023 [...] Reactive Non Reactive 10/11/2022 12:08 PM CDT [facility] Blood BLOOD SPECIMEN / Unknown Venipuncture / Unknown 10/09/2022 9:06 AM CDT 10/09/2022 9:06 AM CDT Narrative [facility] - 10/11/2022 12:08 PM CDT Performed at: ??01 - [facility] [address] [place], [place] ??[id number] [place] Wheeler: Zane Rebolledo MD, Phone: ??[phone] Radha Edouard MD [facility]ORY [facility] [address] [place] [address], [place] * CT CHEST ABDOMEN PELVIS W [...] - 199 mg/dL 09/09/2022 12:53 PM CDT [facility] TRIGLYCERIDES 77 <150 mg/dL 09/09/2022 12:53 PM CDT [facility] HDL CHOLESTEROL 34(L) >40 mg/dL 12:53 PM CDT [facility] NON-HDL CHOLESTEROL 115 <145 mg/dl 09/09/2022 12:53 PM CDT [facility] CHOL/HDL RATIO 4.38 <4.50 09/09/2022 12:53 PM CDT [facility] LDL CHOLESTEROL 100 <=130 mg/dL 09/09/2022 12:53 PM CDT [facility] VLDL CHOLESTEROL 15 <=30 mg/dL 09/09/2022 12:53 PM CDT [facility] PROVIDER ORDERED STATUS RANDOM 09/09/2022 12:53 PM T [facility] Blood BLOOD SPECIMEN / Unknown Butterfly / Unknown 09/09/2022 12:06 PM CDT 09/09/2022 12:07 PM CDT David Ambrocio MD CHEMISTRY Performing Organization Address City/State/[facility] Co de Phone Number [facility] [address] [place] [address] from Last 3 Months or Most Recently [...] Status Discussion: Reviewed Preferences wit Care Teams Magnet Placer Relationship Specialty Start Date End Date David Ambrocio MD [address] [place] [address] PCP - General Family Practice 11/27/22 Elvira Morin, RN [address] [place] [address] Nurse Navigator - Oncology Registered Nurse 10/18/22 Radha Edouard MD [address] [place] [address] Medical Oncologist Hematology and Oncology 11/21/22 Lizeth Alarcon NP [address] [place] [address] Nurse Practitioner Hematology and Oncology 11/21/22 Jaylon Raymond LSW [address], [place] [id number] Billet Cutter 01/06/23 [facility] [address], [place] [address] 01/21/23
== END 2023-12-02 14:43 | disposition home or self-care (01) ==
LOC: WOUND 14:42
PROVIDERS: PCP Internal Medicine; Visit Provider Nurse Practitioner Family
DX: I87.311 Chronic venous hypertension (idiopathic) with ulcer of right lower extremity (principal); L97.218 Non-pressure chronic ulcer of right calf with other specified severity; D64.9 Anemia, unspecified; B95.61 Methicillin susceptible Staphylococcus aureus infection as the cause of diseases classified elsewhere
CPT/HCPCS: 11042; 11045; 87070; 87186; G0463

== ENCOUNTER 2023-12-09 13:55 | Outpatient (CLI) | payer MEDICARE, BC, SELFPAY ==
--- OUTSIDE RECORDS SUMMARY | 2023-12-09 13:58 | XMS_ITS | Clinical Summary ---
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 [address] [place] [address] Lizeth Alarcon, PNEUMATIC TOOL REPAIRER Follow Up (Pancytopenia (HC) [D61.818]//) 11/19/2023 Travel 11/19/[address] [facility] [address] [place] [address] Lizeth Alarcon, PNEUMATIC TOOL REPAIRER Appointment 11/12/2023 8:50 AM CDT - 11/12/2023 11:59 PM CDT Hospital Encounter [facility] [address] [place] [address] Pancytopenia (HC) [D61.818] 11/12/2023 Travel 10/28/2023 Orders Only [facility] Scanner 1 scan: (1-Ord) INCOMING RECORDS-CT, [facility], 10/28/2023 10/28/2023 Orders Only [facility] Scanner 1 scan: (1-Ord) INCOMING RECORDS-LABS, [facility], 10/28/2023 10/28/2023 Orders Only [facility] Scanner 1 scan: (1-Ord) INCOMING RECORDS-[facility], [facility], 10/28/2023 10/27/2023 Telephone [facility] [place] [facility] [place] [address] [address] [place], [facility] Referral (AML) 09/25/2023 Lab Requisition [facility] [phone] David Gordon MD 09/10/2023 Lab Requisition [facility] [phone] David Gordon MD from Last 3 Months [...] Procedure Name Priority Date/Time Associated Diagnosis Comments REFERRAL SUSCEPTIBILITY Routine 12/02/2023 3:40 PM CDT PERIPHERAL BLD MORPHOLOGY Today 11/12/2023 8:56 AM [...] Relevant to Health Maintenance Results * (ABNORMAL) REFERRAL SUSCEPTIBILITY (12/02/2023 3:40 PM CDT) CULTURE RESULT(A) 12/08/2023 10:57 AM CDT [facility] Streptococcus group G 12/08/2023 10:57 AM CDT [facility] Comment:This isolate is pres umed to be clindamycin resistant based on detection of inducible clindamycin resistance. Clindamycin still may be effective in some patients. Other (Right Leg) Client Collect / Unknown 12/02/2023 3:40 PM CDT 12/05/2023 2:54 PM CDT Narrative Organism Antibiotic Method Susceptibility Streptococcus group G PENICILLIN <=0.06: S Streptococcus group G CEFTRIAXONE <=0.12: S Streptococcus group G ERYTHROMYCIN 2: R Streptococcus group G CLINDAMYCIN R Streptococcus group G VANCOMYCIN 0.5: S Streptococcus group G AMPICILLIN <=0.25: S Streptococcus group G CLARITHROMYCIN R Doctor Unknown MICROBIOLOGY [facility] [address] [place] [phone], * (ABNORMAL) CBC WITH AUTO DIFFERENTIAL (11/12/2023 8:56 AM CDT) WHITE BLOOD COUNT 3.1(L) 4.5 - 11.0 thou/cu mm 11/12/2023 10:23 AM [facility] RED BLOOD COUNT 3.49(L) 4.30 - 5.90 mil/cu mm 11/12/2023 10:23 AM [facility] HEMOGLOBIN 8.0(L) 13.5 - 17.5 g/dL 11/12/2023 10:23 AM [facility] HEMATOCRIT 27.7(L) 37.0 - 53.0 % 11/12/2023 10:23 AM [facility] MCV 79(L) 80 - 100 fL 11/12/2023 10:23 AM [facility] MCH 22.9(L) 26.0 - 34.0 pg 11/12/2023 10:23 AM [facility] MCHC 28.9(L) 32.0 - 36.0 g/dL 11/12/2023 10:23 AM CDT [facility] RDW 22.3(H) 11.5 - 15.5 % 11/12/2023 10:23 AM T [facility] PLATELET COUNT 357 140 - 440 thou/cu mm 11/12/2023 10:23 AM T [facility] MPV 11/12/2023 10:23 AM [facility] Comment:Unable to be determi amada Blood BLOOD SPECIMEN / Unknown Butterfly / Unknown 11/12/2023 8:56 AM CDT 11/12/2023 8:57 AM T [facility] - 11/12/2023 10:23 AM CDT This procedure was originally ordered at [facility]. This procedure was originally ordered at [facility]. This procedure was originally ordered at [facility]. Radha Edouard MD HEMATOLOGY [facility] [address] [place] [address] * (ABNORMAL) RED CELL MORPHOLOGY (11/12/2023 8:56 AM CDT) ELLIPTOCYTES Moderate 11/12/2023 10:23 AM [facility] POLYCHROMASIA Slight 11/12/2023 10:23 AM [facility] SCHISTOCYTES Few 11/12/2023 10:23 AM [facility] TARGET CELLS Few 11/12/2023 10:23 AM [facility] TEARDROP CELLS Moderate 11/12/2023 10:23 AM [facility] RBC COMMENT Present(A) RBC morphology appears normal, RBC morphology within normal limits for newborns. 11/12/2023 10:23 AM [facility] LARGE PLATELETS Present 10:23 AM [facility] Blood BLOOD SPECIMEN / Unknown Butterfly / Unknown 11/12/2023 8:56 AM CDT 11/12/2023 8:57 AM CDT [facility] - 11/12/2023 10:23 AM CDT This procedure was originally ordered at [facility]. This procedure was originally ordered at [facility]. This procedure was originally ordered at [facility]. Radha Edouard MD HEMATOLOGY Performing Organization Address [facility] de Phone Number [facility] [address] [place] [address] * PLATELET ESTIMATE (11/12/2023 8:56 AM CDT) PLATELET ESTIMATE Adequate Adequate, No estimate 11/12/2023 10:23 AM CDT [facility] Blood BLOOD SPECIMEN / Unknown Butterfly / Unknown 11/12/2023 8:56 AM CDT 11/12/2023 8:57 AM CDT [facility] - 11/12/2023 10:23 AM CDT This procedure was originally ordered at [facility]. This procedure was originally ordered at [facility]. This procedure was originally ordered at [facility]. Radha Edouard MD HEMATOLOGY Performing Organization Address [facility] de Phone Number [facility] [address] [place] [address] * (ABNORMAL) MANUAL DIFFERENTIAL (11/12/2023 8:56 AM CDT) % NEUTROPHILS 26.0 % 11/12/2023 10:23 AM CDT [facility] % LYMPHOCYTES 39.0 % 11/12/2023 10:23 AM CDT [facility] % MONOCYTES 22.0 % 11/12/2023 10:23 AM CDT [facility] % EOSINOPHILS 2.0 % 11/12/2023 10:23 AM CDT [facility] % BASOPHILS 0.0 % 11/[facility]23 [facility] % METAMYELOCYTES 1.0(H) <0.1 % 11/12/19 10:23 AM [facility] % MYELOCYTES 1.0(H) <0.1 % 11/12/2023 10:23 AM [facility] % PROMYELOCYTES 4.0(H) <0.1 % 10:23 AM [facility] % BLASTS 5.0(H) None Seen % 11/12/2023 10:23 AM [facility] NEUTROPHILS ABSOLUTE 0.8(L) 1.7 - 7.0 thou/cu mm 11/12/2023 10:23 AM [facility] LYMPHOCYTES ABSOLUTE 1.2 0.9 - 2.9 thou/cu mm 11/12/2023 10:23 AM [facility] MONOCYTES ABSOLUTE 0.7 <0.9 thou/cu mm 11/12/2023 10:23 AM [facility] EOSINOPHILS ABSOLUTE 0.1 <0.5 thou/cu mm 11/12/2023 10:23 AM [facility] BASOPHILS ABSOLUTE 0.0 <0.3 thou/cu mm 11/12/2023 10:23 AM [facility] ABSOLUTE METAMYELOCYTES 0.0 <=0.0 thou/cu mm 11/12/2023 10:23 AM [facility] ABSOLUTE MYELOCYTES 0.0 <=0.0 thou/cu mm 11/12/2023 10:23 AM [facility] ABSOLUTE PROMYELOCYTES 0.1(H) <=0.0 thou/cu mm 11/12/2023 10:23 AM [facility] ABSOLUTE BLASTS 0.2(H) <=0.0 thou/cu mm 11/12/2023 10:23 AM [facility] Blood BLOOD SPECIMEN / Unknown Butterfly / Unknown 11/12/2023 8:56 AM T 11/12/2023 8:57 AM [facility] - 11/12/2023 10:23 AM CDT This procedure was originally ordered at [facility]. This procedure was originally ordered at [facility]. This procedure was originally ordered at [facility]. Radha Edouard MD HEMATOLOGY Performing Organization Address [facility]/State/ZIP Co de Phone Number [facility] [address] [place] [address] * PERIPHERAL BLD MORPHOLOGY (11/12/2023 8:56 AM CDT) Only the most recent of2 resultswithin the time period is included. Case Report Special Hematology Report ? Case: [id number] ? Authorizing Provider: ??Radha Edouard MD ?Collected: ? 11/12/2023 0856 ? Ordering Location: ? [facility] ? Received: ?11/12/2023 0857 ? [facility] ? Pathologist: ? Alfonso Ramesh, ? MD ? Specimen: ?Blood ? 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 6.5% BLASTS identified 2. 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 Moderate microcytic hypochromic anemia, suggestive of iron deficiency anemia 4. See comment 11/15/2023 1:55 PM T [facility] Comment Since the last described peripheral blood morphology performed with the bone marrow biopsy 09/25/2023 ([id number]), the blast count has remained essentially the [...] also reviewed by Mari Armijo MT, MS ([facility]). 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 Chromosome analysis revealed a +8 mutation. Myeloid NGS was positive for ASXL1, BRAF, CEBPA, IDH1, and SRSF2 mutations. 11/12/23 08:56 CREATININE: 1.44 (H) eGFR: ? 53 (L) 11/15/2023 1:55 PM CDT [facility]- [facility]ATORY CBC and Differential HEMATOLOGY PARAMETERS Tested at: ??[facility] ? RESULTS ??EXPECTED VALUES WBC: ? 3.1 ?4.5-04l0786/cumm ?DECREASED RBC: ? 3.49 ? 4.30-5.90 mil/cumm ??DECREASED HGB: ? 8.0 ?13.5-17.5 gm/di ? DECREASED HCT: ? 27.7 ? 37-53% ?DECREASED MCV: ? 79.0 ? 80-100 fl ? MICROCYTIC MCH: ? 22.9 ? 26-34 pg ?DECREASED MCHC: ?28.9 ? 32-36 gm/dl ? HYPOCHROMIC RDW: ? 22.3 ? 11.5-15.5% ?ELEVATED PLT: ? 357 ?140-801m7791/uL MPV: ? Unable to be determined ? [...] ??(0%) ? BLASTS 11/15/2023 1:55 PM CDT [facility] Reticulocytes Retic: 6.6 0.5-1.5% ELEVATED 11/15/2023 1:55 PM T [facility] Microscopic Description The final diagnosis is based on microscopic examination of an appropriately stained blood smear. 11/15/2023 1:55 PM T [facility] Additional Information Interpreted at [facility] - [address] [address] 11/15/2023 1:55 PM T [facility] Blood BLOOD SPECIMEN / Unknown [...] Rfl: This procedure was originally ordered at [facility]. Radha Edouard MD HEMATOLOGY Performing Organization Address [facility]/ZIP Co de Phone Number [facility] [address] [place] [address], * (ABNORMAL) LD,TOTAL (11/12/2023 8:56 AM CDT) Pathologist [facility] LD,TOTAL 411(H) 135 - 225 IU/L 11/12/2023 10:39 AM CDT [facility] Blood BLOOD SPECIMEN / Unknown Butterfly / Unknown 11/12/2023 8:56 AM CDT 11/12/2023 8:57 AM CDT Radha Edouard MD CHEMISTRY Performing Organization Address [facility]/ZIP Co de Phone Number [facility] [address] [place] [phone] * (ABNORMAL) RETICULOCYTES (11/12/2023 8:56 AM CDT) [facility] RETIC% 6.6(H) 0.5 - 1.5 % 11/12/2023 1:15 PM CDT [facility] RETIC (ABSOLUTE) 0.24(H) 0.03 - 0.08 mil/cu mm 11/12/2023 1:15 PM CDT [facility] Blood BLOOD SPECIMEN / Unknown Butterfly / Unknown 11/12/2023 8:56 AM CDT 11/12/2023 8:57 AM CDT Narrative [facility]AL LABORATORY - 11/12/2023 1:15 PM CDT This procedure was originally ordered at [facility]. Radha Edouard MD HEMATOLOGY Performing Organization Address City/[facility]/ZIP Co de Phone Number [facility] [address] [place] [address], * (ABNORMAL) HEPATIC FUNCTION PANEL (11/12/2023 8:56 AM CDT) ALBUMIN 2.9(L) 4.0 - 4.9 g/dL 11/12/2023 9:43 AM [facility] PROTEIN,TOTAL 10.2(H) 6.0 - 8.0 g/dL 11/12/2023 9:43 AM [facility] BILIRUBIN,TOTAL 0.5 0.0 - 1.2 mg/dL 11/12/2023 9:43 AM [facility] BILIRUBIN,DIRECT <0.2 0.0 - 0.3 mg/dL 11/12/2023 9:43 AM [facility] BILIRUBIN,INDIRE CT 11/12/2023 9:43 AM [facility] Comment:Unable to calculate, Direct Bili <0.2 ALK PHOSPHATASE 87 40 - 129 IU/L 11/12/2023 9:43 AM [facility] ALT (SGPT) <5(L) 10 - 50 IU/L 11/12/2023 9:43 AM T [facility] AST (SGOT) 46 10 - 50 IU/L 11/12/2023 9:43 AM [facility] Blood BLOOD SPECIMEN / Unknown Butterfly / Unknown 11/12/2023 8:56 AM CDT 11/12/2023 8:57 AM CDT Radha Edouard MD CHEMISTRY Performing Organization Address City/[facility]/ZIP Co de Phone Number [facility] [address] [place] [address] * (ABNORMAL) BASIC METABOLIC PANEL (11/12/2023 8:56 AM CDT) SODIUM 132(L) 136 - 145 mmol/L 11/12/2023 9:28 AM [facility] POTASSIUM 4.0 3.5 - 5.1 mmol/L 11/12/2023 9:28 AM [facility] CHLORIDE 101 98 - 107 mmol/L 11/12/2023 9:28 AM [facility] CO2,TOTAL 22 22 - 29 mmol/L 11/12/2023 9:28 AM [facility] ANION GAP 9 5 - 18 11/12/2023 9:28 AM [facility] GLUCOSE 98 70 - 99 mg/dL 11/12/2023 9:28 AM [facility] CALCIUM 8.1(L) 8.8 - 10.2 mg/dL 11/12/2023 9:28 AM [facility] BUN 17 8 - 23 mg/dL 11/12/2023 9:28 AM [facility] CREATININE 1.44(H) 0.70 - 1.20 mg/dL 11/12/2023 9:28 AM [facility] BUN/CREAT RATIO 12 10 - 20 9:28 AM [facility] eGFR 53(L) >90 mL/min/1.7 3m2 11/12/2023 9:28 AM [facility] Comment:As of 2021, eG [...] 8:57 AM CDT Radha Edouard MD CHEMISTRY [facility] [address] [place] [address] * SCAN CORRESP-LABORATORY RESULTS (10/28/2023 12:00 AM [...] MD LAB BILL ONLY Performing Organization Address [facility] Co de Phone Number [facility] [address] [place] [phone], [place] * MYELOID NGS (LAB ONLY) (09/25/2023 9:10 AM CDT) Bone Marrow (Bone Marrow Aspirate) 09/25/2023 9:10 AM CDT 09/26/2023 3:40 PM CDT David Gordon MD PATHOLOGY/CYTOLOGY Performing Organization Address City/[facility] Co de Phone Number [facility] [address] [place] [phone], [place] * BM/LB CHROM (09/25/2023 9:10 AM CDT) Bone Marrow (Bone Marrow Aspirate) 09/25/2023 9:10 AM CDT 09/26/2023 2:58 PM CDT David Gordon MD LABORATORY Performing Organization Address [facility] Co de Phone Number [facility] [address] [place] [phone], [place] * BM WETLAB (09/25/2023 9:10 AM CDT) Bone Marrow (Bone Marrow Aspirate) 09/25/2023 9:10 AM CDT 09/26/2023 2:58 PM CDT David Gordon MD LABORATORY Performing Organization Address [facility] Co de Phone Number [facility] [address] [place] [phone], [place] * OC (09/25/2023 9:10 AM CDT) Bone Marrow (Bone Marrow Aspirate) 09/25/2023 9:10 AM CDT 09/26/2023 2:58 PM CDT David Gordon MD LABORATORY Performing Organization Address [facility] de Phone Number [facility] [address] [place] [phone], [place] * OB (09/25/2023 9:10 AM CDT) Bone Marrow (Bone Marrow Aspirate) 09/25/2023 9:10 AM CDT 09/26/2023 2:58 PM CDT David Gordon MD LABORATORY Performing Organization Address [facility] de Phone Number [facility] [employer] LABORATORY [address] [place] [phone], [place] * CHROM TECH 2 (09/25/2023 9:10 AM CDT) Bone Marrow (Bone Marrow Aspirate) 09/25/2023 9:10 AM CDT 09/26/2023 2:58 PM CDT David Gordon MD LABORATORY Performing Organization Address [facility] Co de Phone Number [facility] [address] [place] [phone], [place] * CHROM TECH 1 (09/25/2023 9:10 AM CDT) Bone Marrow (Bone Marrow Aspirate) 09/25/2023 9:10 AM CDT 09/26/2023 2:58 PM CDT David Gordon MD LABORATORY Performing Organization Address [facility] Co de Phone Number [facility] [address] [place] [phone], [place] * BONE MARROW DIFFERENTIAL (09/25/2023 9:10 AM CDT) Bone Marrow (Bone Marrow Aspirate) 09/25/2023 9:10 AM CDT 09/29/2023 7:59 AM CDT David Gordon MD LABORATORY Performing Organization Address [facility] Co de Phone Number [facility] [address] [place] [phone], [place] * CYTOGENETIC BONE MARROW STUDIES (09/25/2023 9:10 AM CDT) RFR Acute Myeloid Leukemia, myeloid neoplasm. 10/02/2023 12:17 PM CDT [facility] TEST & RESULT SUMMARY Chromosome Analysis: Positive for a trisomy 8 sole abnormality clone. See comments. 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 ??Trisomy 8 is classified as an intermediate prognostic risk stratification category in AML (NCCN, 2024). Clinicopathologic correlation of these results is recommended. 10/02/2023 12:17 PM CDT [facility] [employer] [facility] COMMENTS A preliminary chromosome result was provided to Manny Alfredo MD on 09/29/2023. 10/02/2023 12:17 PM CDT [facility] LAB TEST DETAILS Fully Analyzed Metaphases: ??20 Partially Analyzed Metaphases: ??0 Full Karyotypes: ??3 10/02/2023 12:17 PM CDT [facility] SOURCE Bone Marrow (NaHep) [id number] B1-2 10/02/2023 12:17 PM CDT [facility] METHODS Cultures used in chromosome analysis were non-stimulated. Chromosome analysis is performed on consecutive analyzable G-banded metaphases. 10/02/2023 12:17 PM CDT [facility] REFERENCES National Comprehensive Cancer Network. (2023). Acute Myeloid Leukemia (version 3.2023). Retrieved from https://www.nccn.o rg/professionals/p hysician_gls/pdf/a ml.pdf. Kenia Germain., Alexei Dominguez, Gurjit Pillai., Rachell Kebede., Alivia Araujo, Sravani Garcia, Isai Wilson. (Eds): WHO Classification of Tumours of Haematopoietic and Lymphoid Tissues. (Revised 4th edition) IARC: Michael 2017. 10/02/2023 12:17 PM CDT [facility] DISCLAIMER This test was developed and its performance characteristics determined by the [facility]. It has not been [...] clinical laboratory testing. 10/02/2023 12:17 PM CDT [facility] [employer] [facility] Bone Marrow (Bone Marrow Aspirate) 09/25/2023 9:10 AM CDT 09/26/2023 2:58 PM CDT David Gordon MD LABORATORY [facility] [address] [place], [place] [address] * BONE MARROW STUDY (09/25/2023 9:10 AM CDT) Case Report Bone Marrow Pathology Report ?Case: [id number] ? Authorizing Provider: ??David Gordon MD ?Collected: ? 09/25/2023 0910 ? Ordering Location: ? [facility]AL [facility] ?Received: ?09/26/2023 0625 ? Pathologist: ? Manny Alfredo MD ? Specimens: ?? A) - Bone Marrow Aspirate ? B) - Bone Marrow Aspirate (Heparinized) ? C) - Bone Marrow Core Biopsy ? D) - Peripheral Blood ? 10/03/2023 8:51 AM CDT [facility]- CENTRAL LABORATORY Amendment 10/03/2023 - Amendment to report [facility] Myeloid Targeted Next Generation Sequencing (NGS) results. Please see diagnosis and attached scanned report. Results are communicated with Dr. Edouard via Secure Chat on 10/03/[address] Alfredo. 10/03/2023 8:51 AM CDT [facility] LABORATORY Final Diagnosis BONE MARROW AND [...] see attached report 10/03/2023 8:51 AM CDT [facility] Amendment electronically signed by Manny [...] a defining cytogenetic abnormality.) 10/03/2023 8:51 AM [facility] Clinical Information Mr. Alba is a 68 y.o. With a peripheral blood morphology consistent with a myeloid neoplasm with 1-2% circulating blasts, moderate microcytic hypochromic anemia with reticulocytosis (6.7%), leukopenia reflecting mild absolute neutropenia with dysgranulopoiesis and lymphocytopenia, and mild absolute monocytosis ([id number], 09/10/23). A bone marrow biopsy is performed for further characterization. 10/03/2023 8:51 AM [facility] PROCEDURE A RIGHT lateral bone marrow biopsy and unilateral aspiration procedure is performed at [facility] on 09/25/23. VIVIANA Monterroso performed the procedure using an 8 gauge manual needle. The ordering physicians are Drs. Gordon and Silke. The specimen is inked orange. EVM 09/26/2023 10/03/2023 8:51 AM [facility] CBC and Differential HEMATOLOGY PARAMETERS Tested at: ??[facility] ? RESULTS ??EXPECTED VALUES WBC: ? 1.6 ?4.5-62v6436/cumm ?DECREASED RBC: ? 3.8 ?4.30-5.90 mil/cumm ??DECREASED HGB: ? 8.5 ?13.5-17.5 gm/di ? DECREASED HCT: ? 30.7 ? 37-53% ?DECREASED MCV: ? 81.0 ? 80-100 fl ? NORMOCYTIC MCH: ? 23.0 ? 26-34 pg ?DECREASED MCHC: ?28.0 ? 32-36 gm/dl ? HYPOCHROMIC RDW: ? 22.5 ? 11.5-15.5% ?ELEVATED PLT: ? 253 ?[id number]/uL ? Retic: ?? 7.91 ?0.5-1.5% ? ELEVATED Differential ?Tested at: ??[facility] ?Absolute (%) ?Expected (%) ?(x10*9/L) ? (x10*9/L) Neutrophils: ?0.5 (31.3) ?1.7-7.0 (42-72%) ??DECREASED Lymphocytes: ?0.6 (37.5) ?0.9-2.9 (20-44%) ??DECREASED Monocytes: ?0.4 (25) ? <0.9 (0-11%) ? Blasts: ? 0.1 (6.3) ? 0 ??(0%) ? BLASTS 10/03/2023 8:51 AM CDT [facility] Reticulocytes Retic: 7.91 0.5-1.5% ELEVATED 10/03/2023 8:51 AM T [facility] Bone Marrow Differential Blasts: ?23.6 ?0.2-1.5% ?ELEVATED Neutrophils & precursors: ??14.4 ?58.0-65.0% ?DECREASED Erythroid precursors: ?38 ?18.0-24.0% ?ELEVATED Lymphocytes: ? 21 ? 3.0-24.0% ? Monocytes: ? 2.2 ? 0.7-2.8% ? Plasma cells: ?0.8 ? 0.1-1.5% ? M:E Ratio: ? 14 : 38 10/03/2023 8:51 AM [facility] Microscopic Description The final diagnosis is based on microscopic examination of an appropriately stained blood smear. SPECIMENS EXAMINED: Peripheral blood Aspirate direct and concentrate smears: ??Adequate Particle crush smears Touch imprints Clot section Bone core trephine sample (decalcified): ??Adequate, 1.6 cm Bone core and clot section color: ??[place] PERIPHERAL BLOOD: The peripheral smear features support [...] Decreased Ringed sideroblasts: Absent 10/03/2023 8:51 AM [facility] Flow Cytometry Summary Diagnostic Acute Myeloid [...] Trace positive markers: CD7/CD36 Negative markers: CD65/CD15/CD10/CD64 /JC584b/CD14/CD56/C D11b/CD16/CD2/CD5/C D235a/CD19/CD22(CYT O)/CD79a(CYTO)/TdT( n)/CD3(CYTO) Quality Assessment Viability (7-AAD): 62% Nucleated cells analyzed: 53504 Limit of detection (LOD): 0.1% These results and cytograms have been verified by Dr. Alfredo. This test was developed and [facility] characteristics [facility] It has not been cleared or [...] Wilkerson, 09/26/2023 3:04 PM Verifying Flow Tech: Folr Alvarez, 09/26/2023 3:50 PM 10/03/2023 8:51 AM CDT [facility] Cytogenetics Summary Cytogenetic testing has been ordered and will be reported separately. 10/03/2023 8:51 AM CDT [facility] Other Testing Immunostains were performed on the bone core biopsy. CD34 (blast marker) (manual morphometry: ??25% 10/03/2023 8:51 AM CDT [facility] Additional Information Interpreted at [facility] - [address], [place] [address] Immunohistochemistr y controls were reviewed and approved by the pathologist during this examination. 10/03/2023 8:51 AM CDT [facility] Bone Marrow (Bone Marrow Aspirate) [...] 6:25 AM CDT David Gordon MD LABORATORY [facility] [address] [place] [address], * CT CHEST ABDOMEN PELVIS WO (01/03/2023 [...] 12:[address] [facility] Blood BLOOD SPECIMEN / Unknown Venipuncture / Unknown 10/09/2022 9:06 AM CDT 10/09/2022 9:06 AM CDT Narrative [facility] - 10/11/2022 12:08 PM CDT Performed at: ??01 - [facility] [address], [place] ??[id number] Education Analyst: Zane Rebolledo MD, Phone: ??[phone] Radha Edouard MD LABORATORY [facility] ([facility]) [facility] [place] [address], * CT CHEST ABDOMEN PELVIS W (09/19/2022 [...] W REFLEX MEASURED LDL (09/09/2022 12:06 PM T) CHOLESTEROL,TOTAL 149 100 - 199 mg/dL 09/09/2022 12:53 PM [facility] TRIGLYCERIDES 77 <150 mg/dL 09/09/2022 12:53 PM [facility] HDL CHOLESTEROL 34(L) >40 mg/dL 12:53 PM [facility] NON-HDL CHOLESTEROL 115 <145 mg/dl 09/09/2022 12:53 PM [facility] CHOL/HDL RATIO 4.38 <4.50 09/09/2022 12:53 PM [facility] LDL CHOLESTEROL 100 <=130 mg/dL 09/09/2022 12:53 PM [facility] VLDL CHOLESTEROL 15 <=30 mg/dL 09/09/2022 12:53 PM [facility] PROVIDER ORDERED STATUS RANDOM 09/09/2022 12:53 PM CDT [facility] Blood BLOOD SPECIMEN / Unknown Butterfly / Unknown 09/09/2022 12:06 PM CDT 09/09/2022 12:07 PM CDT David Ambrocio MD CHEMISTRY [facility] [address] [place] [address] from Last 3 Months or Most Recently [...] Discussion: Reviewed Preferences wit h Care Teams Evening Anchor Relationship Specialty Start Date End Date David Ambrocio MD [address] [place] [address] PCP - General Family Practice 11/27/22 Elvira Morin RN [address] [place] [address] Nurse Navigator - Oncology Registered Nurse 10/18/22 Radha Edouard MD [address] [place] [address] Medical Oncologist Hematology and Oncology 11/21/22 Lizeth Alarcon, PNEUMATIC TOOL REPAIRER [address] [place] [address] Nurse Practitioner Hematology and Oncology 11/21/22 Jaylon Raymond LSW [address] [place] [address] Network Technology Instructor 01/06/[address] [address] 01/21/23
== END 2023-12-09 13:56 | disposition home or self-care (01) ==
LOC: WOUND 13:55
PROVIDERS: PCP Internal Medicine; Visit Provider Nurse Practitioner Family
DX: I87.311 Chronic venous hypertension (idiopathic) with ulcer of right lower extremity (principal); L97.212 Non-pressure chronic ulcer of right calf with fat layer exposed; D64.9 Anemia, unspecified
CPT/HCPCS: 11042; 11045

== ENCOUNTER 2023-12-16 14:42 | Outpatient (CLI) | payer MEDICARE, BC, SELFPAY ==
--- OUTSIDE RECORDS SUMMARY | 2023-12-16 14:46 | XMS_ITS | Clinical Summary ---
Author Organization [facility] Address [place], [place] [address] Care Team Providers Care Household Assistant Name Role Phone CarleneElvira james Stefano RN Unavailable Radha Edouard MD Unavailable [phone] Lizeth Alarcon MATH COACH Unavailable David Ambrocio MD Primary Care Provider Jaylon RaymondW Unavailable [phone] [facility] Unavailable Allergies Active Allergy Reactions [...] Encounters Date Type Department Care Team Description 12/15/2023 11:05 AM CDT - 12/15/2023 11:59 PM CDT Hospital Encounter [facility] [address] [place] [address] 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) 12/15/2023 Telephone [facility] [address] [place] [phone] Lizeth Alarcon, MATH COACH Appointment 12/15/2023 Travel 12/05/2023 Lab Requisition [facility] [phone] Unknown, Doctor 11/19/2023 11:15 AM CDT Office Visit [facility] [address] [place] [address] Lizeth Alarcon, MATH COACH Follow Up (Pancytopenia (HC) [D61.818]//) 11/19/2023 Travel 11/19/2023 Telephone [facility] [address] [place] [address] Lizeth Alarcon, MATH COACH Appointment 11/12/2023 8:50 AM CDT - 11/12/2023 11:59 PM CDT Hospital Encounter [facility] [address] [place] [address] Pancytopenia (HC) [D61.818] 11/12/2023 Travel 10/28/2023 Orders Only [facility] Scanner 1 scan: (1-Ord) INCOMING RECORDS-CT, [facility], 10/28/2023 10/28/2023 Orders Only [facility] Scanner 1 scan: (1-Ord) INCOMING RECORDS-LABS, [facility], 10/28/2023 10/28/2023 Orders Only [facility] Scanner 1 scan: (1-Ord) INCOMING RECORDS-LABS, [facility], 10/28/2023 10/27/2023 Telephone [facility] [address] [place] [phone] [facility] (AML) 09/25/2023 Lab Requisition [facility] [phone] David Gordon MD from Last 3 Months [...] Care Team (Late st Contact Info) Description 12/17/2023 7:30 AM CDT Appointment [facility] [address] [place] [address] 12/31/2023 9:00 AM CDT Appointment [facility] [address] [facility] [place] [address] 01/12/2024 1:45 PM CDT Appointment [facility] [address] [facility] [place] [address] 01/12/2024 2:30 PM CDT Office Visit [facility] 200 [facility] [place] [phone] Radha Edouard MD [address] [place] [address] PATRIA Nava [address] Health Maintenance Due Date Last Done Comments [...] Procedure Name Priority Date/Time Associated Diagnosis Comments TYPE & SCREEN Today 12/15/2023 11:13 AM CDT 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) RED CELL MORPHOLOGY Timed 12/15/2023 1 1:13 AM CDT 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) PLATELET ESTIMATE Timed 12/15/2023 11: 13 AM CDT 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) MANUAL DIFFERENTIAL Timed 12/15/2023 1 1:13 AM CDT 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 WHITE BLOOD COUNT 2.4(L) 4.5 - 11.0 thou/cu mm 12/15/2023 12:35 PM [facility] RED BLOOD COUNT 3.50(L) 4.30 - 5.90 mil/cu mm 12/15/2023 12:35 PM [facility] HEMOGLOBIN 7.6(L) 13.5 - 17.5 g/dL 12/15/2023 12:35 PM [facility] HEMATOCRIT 27.5(L) 37.0 - 53.0 % 12/15/2023 12:35 PM [facility] MCV 79(L) 80 - 100 fL 12/15/2023 12:35 PM [facility] MCH 21.7(L) 26.0 - 34.0 pg 12/15/2023 12:35 PM [facility] MCHC 27.6(L) 32.0 - 36.0 g/dL 12/15/2023 12:35 PM [facility] RDW 23.0(H) 11.5 - 15.5 % 12/15/2023 12:35 PM [facility] PLATELET COUNT 233 140 - 440 thou/cu mm 12/15/2023 12:35 PM [facility] MPV 12/15/2023 12:35 PM [facility] Comment:Unable to be determi amada Blood BLOOD SPECIMEN / Unknown Venipuncture / Unknown 12/15/2023 11:13 AM CDT 12/15/2023 11:19 AM T [facility] - 12/15/2023 12:35 PM CDT This procedure was originally ordered at [facility]. This procedure was originally ordered at [facility] This procedure was originally ordered at [facility]. Lizeth Alarcon NP HEMATOLOGY [facility] [address] [place] [address] * (ABNORMAL) RED CELL MORPHOLOGY (12/15/2023 11:13 AM CDT) Only the most recent of2 resultswithin the time period is included. ELLIPTOCYTES Moderate 12/15/2023 12:34 PM CDT [facility] POLYCHROMASIA Slight 12/15/2023 12:34 PM CDT [facility] SCHISTOCYTES Few 12/15/2023 12:34 PM CDT [facility] TEARDROP CELLS Few 12/15/2023 12:34 PM T [facility] RBC COMMENT Present(A) RBC morphology appears normal, RBC morphology within normal limits for newborns. 12/15/2023 12:34 PM CDT [facility] *BASOPHILIC STIPPLING Present 12/15/2023 12:34 PM CDT [facility] Blood BLOOD SPECIMEN / Unknown Venipuncture / Unknown 12/15/2023 11:13 AM CDT 12/15/2023 11:19 AM CDT [facility] - 12/15/2023 12:34 PM CDT This procedure was originally ordered at [facility]. This procedure was originally ordered at [facility]. This procedure was originally ordered at [facility]. Lizeth Alarcon NP HEMATOLOGY [facility] [address] [place] [address] * PLATELET ESTIMATE (12/15/2023 11:13 AM CDT) Only the most recent of2 resultswithin the time period is included. PLATELET ESTIMATE Adequate Adequate, No estimate 12/15/2023 12:34 PM T [facility] Blood BLOOD SPECIMEN / Unknown Venipuncture / Unknown 12/15/2023 11:13 AM CDT 12/15/2023 11:19 AM CDT [facility] - 12/15/2023 12:34 PM CDT This procedure was originally ordered at [facility]. This procedure was originally ordered at [facility]. This procedure was originally ordered at [facility]. Lizeth Alarcon NP HEMATOLOGY [facility] 200 [place] [address] * (ABNORMAL) MANUAL DIFFERENTIAL (12/15/2023 11:13 AM CDT) Only the most recent of2 resultswithin the time period is included. % NEUTROPHILS 30.0 % 12/15/2023 12:34 PM [facility] % LYMPHOCYTES 47.0 % 12/15/2023 12:34 PM [facility] % MONOCYTES 14.0 % 12/15/2023 12:34 PM [facility] % EOSINOPHILS 0.0 % 12/15/2023 12:34 PM [facility] % BASOPHILS 0.0 % 12/15/2023 12:34 PM [facility] % METAMYELOCYTES 1.0(H) <0.1 % 12/15/19 24 12:34 PM [facility] % MYELOCYTES 2.0(H) <0.1 % 12/15/2023 12:34 PM [facility] % BLASTS 5.0(H) None Seen % 12/15/2023 12:34 PM [facility] % PLASMA CELLS 1.0 % 12/15/2023 12:34 PM [facility] NEUTROPHILS ABSOLUTE 0.7(L) 1.7 - 7.0 thou/cu mm 12/15/2023 12:34 PM [facility] LYMPHOCYTES ABSOLUTE 1.1 0.9 - 2.9 thou/cu mm 12/15/2023 12:34 PM [facility] MONOCYTES ABSOLUTE 0.3 <0.9 thou/cu mm 12/15/2023 12:34 PM [facility] EOSINOPHILS ABSOLUTE 0.0 <0.5 thou/cu mm 12/15/2023 12:34 PM CDT [facility] BASOPHILS ABSOLUTE 0.0 <0.3 thou/cu mm 12/15/2023 12:34 PM CDT [facility] ABSOLUTE METAMYELOCYTES 0.0 <=0.0 thou/cu mm 12/15/2023 12:34 PM CDT [facility] ABSOLUTE MYELOCYTES 0.0 <=0.0 thou/cu mm 12/15/2023 12:34 PM T [facility] ABSOLUTE BLASTS 0.1(H) <=0.0 thou/cu mm 12/15/2023 12:34 PM T [facility] PLASMA CELLS ABSOLUTE 0.0 thou/cu mm 12/15/2023 12:34 PM T [facility] ABS NRBC 0.1 thou /cu mm 12/15/2023 12:34 PM [facility] MANUAL NRBC PER 100 CELLS 3.0 /100 CELLS 12/15/2023 12:34 PM [facility] Blood BLOOD SPECIMEN / Unknown Venipuncture / Unknown 12/15/2023 11:13 AM CDT 12/15/2023 11:19 AM CDT [facility] - 12/15/2023 12:34 PM CDT This procedure was originally ordered at [facility]. This procedure was originally ordered at [facility]. This procedure was originally ordered at [facility]. Lizeth Alarcon NP HEMATOLOGY [facility] [address] [place] [address] * TYPE & SCREEN (12/15/2023 11:13 AM CDT) Pathologist Sammi ABORH O Rh Negative 12/15/2023 1:13 PM T [facility] BLOOD BANK ANTIBODY SCREEN Negative Negative 12/15/2023 1:13 PM T [facility] BLOOD BANK SPECIMEN EXPIRATION DATE/TIME 12/18/23 23:59 12/15/2023 1:13 PM CDT [facility] BLOOD BANK Blood BLOOD SPECIMEN / Unknown Venipuncture / Unknown 12/15/2023 11:13 AM CDT 12/15/2023 11:20 AM CDT Lizeth Alarcon MATH COACH BLOOD BANK Performing Organization Address [facility] Co de Phone Number [facility] BLOOD BANK [address] [place] [address] * (ABNORMAL) REFERRAL SUSCEPTIBILITY (12/02/2023 3:40 PM CDT) CULTURE RESULT(A) 12/08/2023 10:57 AM CDT [facility]- NTRAL LABORATORY CULTURE Streptococcus group G 12/08/2023 10:57 AM CDT [facility] Comment:This isolate is pres umed to [...] group G CLARITHROMYCIN R Doctor Unknown MICROBIOLOGY Performing Organization Address City/[facility]/ZIP Co de Phone Number [facility] [address] [place] [address], * PERIPHERAL BLD MORPHOLOGY (11/12/2023 8:56 AM CDT) Case Report Special Hematology Report ? Case: [id number] ? Authorizing Provider: ??Edouard, Radha Keshawn, MD ?Collected: ? 11/12/2023 0856 ? Ordering Location: ? [facility] ? Received: ?11/12/2023 0857 ? [facility] ? Pathologist: ? Alofnso Ramesh, ? MD ? Specimen: ?Blood ? 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 6.5% BLASTS identified 2. 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 Moderate microcytic hypochromic anemia, suggestive of iron deficiency anemia 4. See comment 11/15/2023 1:55 PM CDT [facility] Comment Since the last described peripheral blood morphology performed with the bone marrow biopsy 09/25/2023 ([id number]), the blast count has remained essentially the [...] reviewed by Mari Armijo MT, MS ([facility]). 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 Chromosome analysis revealed a +8 mutation. Myeloid NGS was positive for ASXL1, BRAF, CEBPA, IDH1, and SRSF2 mutations. 11/12/23 08:56 CREATININE: 1.44 (H) eGFR: ? 53 (L) 11/15/2023 1:55 PM CDT [facility]- [facility] LABORATORY CBC and Differential HEMATOLOGY PARAMETERS Tested at: ??[facility] ? RESULTS ??EXPECTED VALUES WBC: ? 3.1 ?4.5-32s7367/cumm ?DECREASED RBC: ? 3.49 ? 4.30-5.90 mil/cumm ??DECREASED HGB: ? 8.0 ?13.5-17.5 gm/di ? DECREASED HCT: ? 27.7 ? 37-53% ?DECREASED MCV: ? 79.0 ? 80-100 fl ? MICROCYTIC MCH: ? 22.9 ? 26-34 pg ?DECREASED MCHC: ?28.9 ? 32-36 gm/dl ? HYPOCHROMIC RDW: ? 22.3 ? 11.5-15.5% ?ELEVATED PLT: ? 357 ?140-051u5997/uL MPV: ? Unable to be determined ? Retic: ?? 6.6 ?0.5-1.5% ?ELEVATED Differential ?Tested at: ??[facility] ?Absolute (%) ?Expected (%) ?(x10*9/L) ? (x10*9/L) Neutrophils: ?0.8 (25.8) ?1.7-7.0 (42-72%) ??DECREASED Lymphocytes: ?1.2 (38.7) ?0.9-2.9 (20-44%) ?? Monocytes: ?0.7 (22.6) ? <0.9 (0-11%) ? Eosinophils: ?0.1 (3.2) ?<0.5 (0-2%) ? Promyelocytes: ??0.1 (3.2) ?<0.1 (<0.1%) ? ELEVATED Blasts: ? 0.2 (6.5) ? 0 ??(0%) ? BLASTS 11/15/2023 1:55 PM CDT [facility] Reticulocytes Retic: 6.6 0.5-1.5% ELEVATED 11/15/2023 1:55 PM CDT [facility] Microscopic Description The final diagnosis is based on microscopic examination of an appropriately stained blood smear. 11/15/2023 1:55 PM CDT [facility] Additional Information Interpreted at [facility] - [address], [place] [address] 11/15/2023 1:55 PM CDT [facility] Blood BLOOD SPECIMEN / Unknown [...] Rfl: This procedure was originally ordered at [facility]. Radha Edouard MD [facility]OLOGY [facility] [address] [place] [address], [place] * (ABNORMAL) LD,TOTAL (11/12/2023 8:56 AM CDT) LD,TOTAL 411(H) 135 - 225 IU/L 11/12/2023 10:39 AM CDT [facility] Blood BLOOD SPECIMEN / Unknown Butterfly / Unknown 11/12/2023 8:56 AM CDT 11/12/2023 8:57 AM CDT Radha Edouard MD CHEMISTRY Performing Organization Address [facility]/ZIP Co de Phone Number [facility] [address] [place] [address] * (ABNORMAL) RETICULOCYTES (11/12/2023 8:56 AM CDT) [facility] RETIC% 6.6(H) 0.5 - 1.5 % 11/12/2023 1:15 PM CDT [facility] TRAL LABORATORY RETIC (ABSOLUTE) 0.24(H) 0.03 - 0.08 mil/cu mm 11/12/2023 1:15 PM CDT [facility] Blood BLOOD SPECIMEN / Unknown Butterfly / Unknown 11/12/2023 8:56 AM CDT 11/12/2023 8:57 AM CDT Narrative [facility] - 11/12/2023 1:15 PM CDT This procedure was originally ordered at [facility] Radha Edouard MD HEMATOLOGY Performing Organization Address City/[facility]/ZIP Co de Phone Number [facility] [address] [place] [phone], * (ABNORMAL) HEPATIC FUNCTION PANEL (11/12/2023 8:56 AM CDT) [facility] ALBUMIN 2.9(L) 4.0 - 4.9 g/dL 11/12/2023 9:43 AM CDT [facility] PROTEIN,TOTAL 10.2(H) 6.0 - 8.0 g/dL 11/12/2023 9:43 AM CDT [facility] BILIRUBIN,TOTAL 0.5 0.0 - 1.2 mg/dL 11/12/2023 9:43 AM CDT [facility] BILIRUBIN,DIRECT <0.2 0.0 - 0.3 mg/dL 11/12/2023 9:43 AM [facility] BILIRUBIN,INDIRE CT 11/12/2023 9:43 AM [facility] Comment:Unable to calculate, Direct Bili <0.2 ALK PHOSPHATASE 87 40 - 129 IU/L 11/12/2023 9:43 AM [facility] ALT (SGPT) <5(L) 10 - 50 IU/L 11/12/2023 9:43 AM [facility] AST (SGOT) 46 10 - 50 IU/L 11/12/2023 9:43 AM [facility] Blood BLOOD SPECIMEN / Unknown Butterfly / Unknown 11/12/2023 8:56 AM CDT 11/12/2023 8:57 AM CDT Radha Edouard MD CHEMISTRY Performing Organization Address [facility]/State/ZIP Co de Phone Number [facility] [address] [place] [address] * (ABNORMAL) BASIC METABOLIC PANEL (11/12/2023 8:56 AM CDT) SODIUM 132(L) 136 - 145 mmol/L 11/12/2023 9:28 AM [facility] POTASSIUM 4.0 3.5 - 5.1 mmol/L 11/12/2023 9:28 AM [facility] CHLORIDE 101 98 - 107 mmol/L 11/12/2023 9:28 AM [facility] CO2,TOTAL 22 22 - 29 mmol/L 11/12/2023 9:28 AM [facility] ANION GAP 9 5 - 18 11/12/2023 9:28 AM [facility] GLUCOSE 98 70 - 99 mg/dL 11/12/2023 9:28 AM [facility] CALCIUM 8.1(L) 8.8 - 10.2 mg/dL 11/12/2023 9:28 AM [facility] BUN 17 8 - 23 mg/dL 11/12/2023 9:28 AM T [facility] CREATININE 1.44(H) 0.70 - 1.20 mg/dL 11/12/2023 9:28 AM T [facility] BUN/CREAT RATIO 12 10 - 20 9:28 AM T [facility] eGFR 53(L) >90 mL/min/1.7 3m2 11/12/2023 9:28 AM T [facility] Comment:As of 2021, eG [...] 8:57 AM CDT Radha Edouard MD CHEMISTRY [facility] [address] [place] [address] * SCAN CORRESP-LABORATORY RESULTS (10/28/2023 12:00 AM CDT) Only the most recent of2 resultswithin the time period is included. Scanner OTHER * SCAN CORRESP-IMAGING (10/28/2023 12:00 AM CDT) Anatomical Region Laterality Modality Other Scanner OTHER * LAB TRACKING EVENT (09/25/2023 12:00 PM CDT) Other (Other) Client Collect / Unknown 09/25/2023 12:00 PM CDT 09/25/2023 9:59 PM CDT David Gordon MD LAB BILL ONLY [facility]-C[facility]AL LABORATORY [address] [place] [address], * MYELOID NGS (LAB ONLY) (09/25/2023 9:10 AM CDT) Bone Marrow (Bone Marrow Aspirate) 09/25/2023 9:10 AM CDT 09/26/2023 3:40 PM CDT David Gordon MD PATHOLOGY/CYTOLOGY Performing Organization Address [facility] Co de Phone Number [facility]-C[facility]AL LABORATORY [address] [place] [phone], [place] * BM/LB CHROM (09/25/2023 9:10 AM CDT) Bone Marrow (Bone Marrow Aspirate) 09/25/2023 9:10 AM CDT 09/26/2023 2:58 PM CDT David Gordon MD LABORATORY Performing Organization Address [facility] de Phone Number [facility] [address] [place] [phone], [place] * BM WETLAB (09/25/2023 9:10 AM CDT) Bone Marrow (Bone Marrow Aspirate) 09/25/2023 9:10 AM CDT 09/26/2023 2:58 PM CDT David Gordon MD LABORATORY Performing Organization Address [facility] de Phone Number [facility] [address] [place] [phone], [place] * OC (09/25/2023 9:10 AM CDT) Bone Marrow (Bone Marrow Aspirate) 09/25/2023 9:10 AM CDT 09/26/2023 2:58 PM CDT David Gordon MD LABORATORY Performing Organization Address [facility] de Phone Number [facility] [address] [place] [phone], [place] * OB (09/25/2023 9:10 AM CDT) Bone Marrow (Bone Marrow Aspirate) 09/25/2023 9:10 AM CDT 09/26/2023 2:58 PM CDT David Gordon MD LABORATORY Performing Organization Address [facility] de Phone Number [facility] [address] [place] [phone], [place] * CHROM TECH 2 (09/25/2023 9:10 AM CDT) Bone Marrow (Bone Marrow Aspirate) 09/25/2023 9:10 AM CDT 09/26/2023 2:58 PM CDT David Gordon MD LABORATORY Performing Organization Address [facility] de Phone Number [email or web address] [address] [place] [phone], [place] * CHROM TECH 1 (09/25/2023 9:10 AM CDT) Bone Marrow (Bone Marrow Aspirate) 09/25/2023 9:10 AM CDT 09/26/2023 2:58 PM CDT David Gordon MD LABORATORY Performing Organization Address [facility] de Phone Number [facility] [address] [place] [phone], [place] * BONE MARROW DIFFERENTIAL (09/25/2023 9:10 AM CDT) Bone Marrow (Bone Marrow Aspirate) 09/25/2023 9:10 AM CDT 09/29/2023 7:59 AM CDT David Gordon MD LABORATORY Performing Organization Address [facility] de Phone Number [email or web address] [address] [place] [phone], [place] * CYTOGENETIC BONE MARROW STUDIES (09/25/2023 9:10 AM CDT) RFR Acute Myeloid Leukemia, myeloid neoplasm. 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 See comments. 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 ??Trisomy 8 is classified as an intermediate prognostic risk stratification category in AML (NCCN, 2024). Clinicopathologic correlation of these results is recommended. 10/02/2023 12:17 PM CDT [facility] ENTRAL LABORATORY COMMENTS A preliminary chromosome result was provided to Manny Alfredo MD on 09/29/2023. 10/02/2023 12:17 PM CDT [facility] LAB TEST DETAILS Fully Analyzed Metaphases: ??20 Partially Analyzed Metaphases: ??0 Full Karyotypes: ??3 10/02/2023 12:17 PM CDT [facility] SOURCE Bone Marrow (NaHep) [id number] B1-2 10/02/2023 12:17 PM CDT [facility] METHODS Cultures used in chromosome analysis were non-stimulated. Chromosome analysis is performed on consecutive analyzable G-banded metaphases. 10/02/2023 12:17 PM CDT [facility] REFERENCES National [employer] Cancer Network. (2023). Acute Myeloid Leukemia (version 3.2023). Retrieved from [email or web address] [email or web address]. Kenia Germain., Alexei Dominguez, Gurjit Pillai., Rachell DominguezS., Alivia Nesbitt., Sravani James., Isai Wilson. (Eds): WHO Classification of Tumours of Haematopoietic and Lymphoid Tissues. (Revised 4th edition) IARC: Michael 2017. 10/02/2023 12:17 PM CDT [facility] ENTRAL LABORATORY DISCLAIMER This test [...] clinical laboratory testing. 10/02/2023 12:17 PM CDT [facility] LABORATORY-C ENTRAL LABORATORY Bone Marrow (Bone Marrow Aspirate) 09/25/2023 9:10 AM CDT 09/26/2023 2:58 PM CDT David Gordon MD LABORATORY [facility]-CENTRAL LABORATORY [address] [place] [address], * BONE MARROW STUDY (09/25/2023 9:10 AM CDT) Case Report Bone Marrow Pathology Report ?Case: [id number] ? Authorizing Provider: ??David Gordon MD ?Collected: ? 09/25/2023 0910 ? Ordering Location: ? [facility] CENTRAL LAB ?Received: ?09/26/2023 0625 ? Pathologist: ? Manny Alfredo MD ? Specimens: ?? A) - Bone Marrow Aspirate ? B) - Bone Marrow Aspirate (Heparinized) ? C) - Bone Marrow Core Biopsy ? D) - Peripheral Blood ? 10/03/2023 8:51 AM T [facility] LABORATORY- CENTRAL LABORATORY Amendment 10/03/2023 - Amendment to report [facility] Myeloid Targeted Next Generation Sequencing (NGS) results. Please see diagnosis and attached scanned report. Results are communicated with Dr. Edouard via Secure Chat on 10/03/[address] Alfredo. 10/03/2023 8:51 AM T [facility]- CENTRAL LABORATORY Final Diagnosis BONE MARROW AND [...] see attached report 10/03/2023 8:51 AM T [facility]- CENTRAL LABORATORY Amendment electronically signed [...] a defining cytogenetic abnormality.) 10/03/2023 8:51 AM [facility] LAB[facility] Clinical Information Mr. Alba is a 68 y.o. With a peripheral blood morphology consistent with a myeloid neoplasm with 1-2% circulating blasts, moderate microcytic hypochromic anemia with reticulocytosis (6.7%), leukopenia reflecting mild absolute neutropenia with dysgranulopoiesis and lymphocytopenia, and mild absolute monocytosis ([id number], 09/10/23). A bone marrow biopsy is performed for further characterization. 10/03/2023 8:51 AM [facility]- CENTRAL LABORATORY PROCEDURE A RIGHT lateral bone marrow biopsy and unilateral aspiration procedure is performed at [facility] on 09/25/23. VIVIANA Monterroso performed the procedure using an 8 gauge manual needle. The ordering physicians are Drs. Gordon and Silke. The specimen is inked orange. EVM 09/26/2023 10/03/2023 8:51 AM [facility] CENTRAL LABORATORY CBC and Differential HEMATOLOGY PARAMETERS Tested at: ??[facility] ? RESULTS ??EXPECTED VALUES WBC: ? 1.6 ?4.5-19z2328/cumm ?DECREASED RBC: ? 3.8 ?4.30-5.90 mil/cumm ??DECREASED HGB: ? 8.5 ?13.5-17.5 gm/di ? DECREASED HCT: ? 30.7 ? 37-53% ?DECREASED MCV: ? 81.0 ? 80-100 fl ? NORMOCYTIC MCH: ? 23.0 ? 26-34 pg ?DECREASED MCHC: ?28.0 ? 32-36 gm/dl ? HYPOCHROMIC RDW: ? 22.5 ? 11.5-15.5% ?ELEVATED PLT: ? 253 ?140-075p7205/uL ? Retic: ?? 7.91 ?0.5-1.5% ? ELEVATED Differential ?Tested at: ??[facility] ?Absolute (%) ?Expected (%) ?(x10*9/L) ? (x10*9/L) Neutrophils: ?0.5 (31.3) ?1.7-7.0 (42-72%) ??DECREASED Lymphocytes: ?0.6 (37.5) ?0.9-2.9 (20-44%) ??DECREASED Monocytes: ?0.4 (25) ? <0.9 (0-11%) ? Blasts: ? 0.1 (6.3) ? 0 ??(0%) ? BLASTS 10/03/2023 8:[address] [facility] Reticulocytes Retic: 7.91 0.5-1.5% ELEVATED 10/03/2023 8:[address] [facility] Bone Marrow Differential Blasts: ?23.6 ?0.2-1.5% ?ELEVATED Neutrophils & precursors: ??14.4 ?58.0-65.0% ?DECREASED Erythroid precursors: ?38 ?18.0-24.0% ?ELEVATED Lymphocytes: ? 21 ? 3.0-24.0% ? Monocytes: ? 2.2 ? 0.7-2.8% ? Plasma cells: ?0.8 ? 0.1-1.5% ? M:E Ratio: ? 14 : 38 10/03/2023 8:51 AM [facility] Microscopic Description The final diagnosis is based on microscopic examination of an appropriately stained blood smear. SPECIMENS EXAMINED: Peripheral blood Aspirate direct and concentrate smears: ??Adequate Particle crush smears Touch imprints Clot section Bone core trephine sample (decalcified): ??Adequate, 1.6 cm Bone core and clot section color: ??[place] PERIPHERAL BLOOD: The peripheral smear features support [...] Ringed sideroblasts: Absent 10/03/2023 8:51 AM CDT [facility] Flow Cytometry Summary Diagnostic [...] Trace positive markers: CD7/CD36 Negative markers: CD65/CD15/CD10/CD64 /OE383g/CD14/CD56/C D11b/CD16/CD2/CD5/C D235a/CD19/CD22(CYT O)/CD79a(CYTO)/TdT( n)/CD3(CYTO) Quality Assessment Viability (7-AAD): 62% Nucleated cells analyzed: 54475 Limit of detection (LOD): 0.1% These results and cytograms have been verified by Dr. Alfredo. This test was developed and its performance characteristics verified by [email or web address]. It has not been cleared or [...] findings during diagnostic evaluation. Analytic Flow Tech: Tian Wilkerson, 09/26/2023 3:04 PM Verifying Flow Tech: Flor Alvarez, 09/26/2023 3:50 PM 10/03/2023 8:[address] [facility] Cytogenetics Summary Cytogenetic testing has been ordered and will be reported separately. 10/03/2023 8:[address] [facility] Other Testing Immunostains were performed on the bone core biopsy. CD34 (blast marker) (manual morphometry: ??25% 10/03/2023 8:[address] [facility] Additional Information Interpreted at [facility] - [address] [facility] [address], [place] [address] Immunohistochemistr y controls were reviewed and approved by the pathologist during this examination. 10/03/2023 8:[address] [facility] Bone Marrow (Bone Marrow Aspirate) [...] 6:25 AM CDT David Gordon MD [facility] [address] [place] [address], * CT CHEST ABDOMEN PELVIS WO (01/03/2023 [...] Non Reactive 10/11/2022 12:08 PM CDT [facility] Blood BLOOD SPECIMEN / Unknown Venipuncture / Unknown 10/09/2022 9:06 AM CDT 10/09/2022 9:06 AM CDT Narrative [facility] - 10/11/2022 12:08 PM CDT Performed at: ??01 - [facility] [address] [facility], [place], [place] ??[id number] Adjunct Nursing Faculty: Zane Rebolledo MD, Phone: ??[phone] Radha Edouard MD LABORATORY [facility] ([facility]) [address] [place] [address], [place] * CT CHEST ABDOMEN PELVIS W [...] - 199 mg/dL 09/09/2022 12:53 PM CDT [facility] TRIGLYCERIDES 77 <150 mg/dL 09/09/2022 12:53 PM CDT [facility] HDL CHOLESTEROL 34(L) >40 mg/dL 12:53 PM CDT [facility] NON-HDL CHOLESTEROL 115 <145 mg/dl 09/09/2022 12:53 PM T [facility] CHOL/HDL RATIO 4.38 <4.50 09/09/2022 12:53 PM T [facility] LDL CHOLESTEROL 100 <=130 mg/dL 09/09/2022 12:53 PM T [facility] VLDL CHOLESTEROL 15 <=30 mg/dL 09/09/2022 12:53 PM T [facility] PROVIDER ORDERED STATUS RANDOM 09/09/2022 12:53 PM T [facility] Blood BLOOD SPECIMEN / Unknown Butterfly / Unknown 09/09/2022 12:06 PM CDT 09/09/2022 12:07 PM CDT David Ambrocio MD CHEMISTRY [facility] [address] [place] [address] from Last 3 Months or Most Recently [...] Discussion: Reviewed Preferences wit h Care Teams Household Assistant Relationship Specialty Start Date End Date David Ambrocio MD [address] [place] [address] PCP - General Family Practice 11/27/22 Elvira Morin RN [address] [place] [address] Nurse Navigator - Oncology Registered Nurse 10/18/22 Radha Edouard MD [address] [place] [address] Medical Oncologist Hematology and Oncology 11/21/22 Lizeth Alarcon, MATH COACH [address] [place] [address] Nurse Practitioner Hematology and Oncology 11/21/22 [place], KYUNG Hong [address] [place] [address] Call Worker 01/06/[address] [address] 01/21/23
== END 2023-12-16 14:43 | disposition home or self-care (01) ==
LOC: WOUND 14:43
PROVIDERS: PCP Internal Medicine; Visit Provider Nurse Practitioner Family
DX: I87.311 Chronic venous hypertension (idiopathic) with ulcer of right lower extremity (principal); L97.212 Non-pressure chronic ulcer of right calf with fat layer exposed; D64.9 Anemia, unspecified
CPT/HCPCS: 11042; 11045

== ENCOUNTER 2023-12-23 14:36 | Outpatient (CLI) | payer MEDICARE, BC, SELFPAY ==
--- OUTSIDE RECORDS SUMMARY | 2023-12-23 14:40 | XMS_ITS | Clinical Summary ---
Author Organization [facility] Address [place], [place] [address] Care Team Providers Care Carry In Worker Name Role Phone CarleneElvira james Stefano RN Unavailable Radha Edouard MD Unavailable Lizeth Alarcon [employer] Unavailable David Ambrocio MD Primary Care Provider Jaylon RaymondW Unavailable [phone] [facility] Unavailable Allergies Active Allergy Reactions Criticality [...] Encounters Date Type Department Care Team Description 12/17/2023 7:23 AM CDT - 12/17/2023 11:59 PM T Hospital Encounter [facility] [address] [place] [address] 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); Cellulitis of right lower extremity; Pancytopenia (HC) 12/17/2023 Travel 12/15/2023 11:05 AM CDT - 12/15/2023 11:59 PM CDT Hospital Encounter [facility] [address] [place] [address] 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) 12/15/[address] [address] Lizeth Alarcon, [employer] Appointment 12/15/2023 Travel 12/05/2023 Lab Requisition [facility] [phone] Unknown, Doctor 11/19/2023 11:15 AM CDT Office Visit [facility] [address] [place] [address] Lizeth Alarcon, [employer] Follow Up (Pancytopenia (HC) [D61.818]//) 11/19/2023 Travel 11/19/2023 Telephone [facility] [address] [place] [address] Lizeth Alarcon, [employer] Appointment 11/12/2023 8:50 AM CDT - 11/12/2023 11:59 PM CDT Hospital Encounter [facility] [address] [place] [address] Pancytopenia (HC) [D61.818] 11/12/2023 Travel 10/28/2023 Orders Only [facility] Scanner 1 scan: (1-Ord) INCOMING RECORDS-CT, [facility], 10/28/2023 10/28/2023 Orders Only [facility] Scanner 1 scan: (1-Ord) INCOMING RECORDS-LABS, [facility], 10/28/2023 10/28/2023 Orders Only [facility] Scanner 1 scan: (1-Ord) INCOMING RECORDS-LABS, [facility], 10/28/2023 10/27/2023 Telephone [facility] [address] [place] [address] [facility] Cancer Referral (AML) 09/25/2023 Lab Requisition [facility] [phone] David Gordon MD from Last 3 Months [...] Tobacco: Every Day Cigarettes 1 55.7 Started: 1969 Passive Smoke Exposure: Current Smokeless Tobacco: Never [...] Sign Reading Time Taken Comments Blood Pressure 162/80 12/17/2023 11:45 AM CDT Pulse 77 12/17/2023 11:33 AM CDT Temperature 37.1 ??C (98.7 ??F) 12/17/2023 1 1:33 AM CDT Respiratory Rate 16 12/17/2023 11:3 3 AM CDT Oxygen Saturation 96% 11/19/2023 11: 17 AM CDT Inhaled Oxygen Concentration - - Weight 84.7 kg (186 lb 12.8 oz) 024 11:17 AM CDT Height 175.3 cm (5' 9) 08/23/2023 7:02 PM CDT Body Mass Index 27.59 08/23/2023 7:02 PM CDT Plan of Treatment Upcoming Encounters Date Type Department Care Team (Late st Contact Info) Description 12/31/2023 9:00 AM CDT Appointment [facility] [address] [place] [address] 01/12/2024 1:30 PM CDT Appointment [facility] 200 [place] [address] 01/12/2024 2:30 PM CDT Office Visit [facility] [place] [address] [facility] [place] [address] Radha Edouard MD 200 [facility] [place] [address] Health Maintenance Due Date Last Done Comments [...] Procedure Name Priority Date/Time Associated Diagnosis Comments TRANSFUSE RBC (NURSE COMMUNICATION ORDER) [facility] 12/17/2023 8:57 AM CDT 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) Cellulitis of right lower extremity Pancytopenia (HC) RBC W/O TYPE & SCREEN [facility] 12/17/2023 8:39 AM CDT 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) Cellulitis of right lower extremity Pancytopenia (HC) RED BLOOD CELLS EA UNIT [facility] 12/15/2023 11:15 AM CDT TYPE & SCREEN Today 12/15/2023 11:13 AM CDT 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) CWS PATH REVIEW HEMATOLOGY Timed 12/15/2023 11:13 AM CDT Acute myeloid [...] Recently Relevant to Health Maintenance Results * TRANSFUSE RBC (NURSE COMMUNICATION ORDER) (12/17/2023 11:09 AM CDT) Blood BLOOD SPECIMEN / Unknown Lizeth Alarcon NP NURSING BLOOD BANK * RBC W/O TYPE & SCREEN (12/17/2023 8:39 AM CDT) QUANTITY 1 12/17/2023 8:39 AM CDT [facility] BLOOD BANK Blood BLOOD SPECIMEN / Unknown 12/17/2023 8:30 AM CDT Lizeth Alarcon NP BLOOD BANK [facility] BLOOD BANK [address] [place] [address] * RED BLOOD CELLS EA UNIT (12/15/2023 11:15 AM CDT) CROSSMATCH Compatible Compatible [facility] BLOOD BANK PRODUCT BLOOD TYPE O Rh Negative [facility] B[facility]OD [facility] PRODUCT ID NUMBER [id number] [facility] B[facility]OD [facility] PRODUCT STATUS Transfused [facility] BLOOD BANK PRODUCT DESCRIPTION RBC -1 LR [facility] BLOOD BANK PRODUCT CODE [id number] [facility] BLOOD BANK ISSUE DATE/TIME 12/17/23 08:52 [facility] BLOOD BANK Lizeth Alarcon NP BLOOD BANK [facility] BLOOD BANK [address] [place] [address] * CWS PATH REVIEW HEMATOLOGY (12/15/2023 11:13 AM CDT) PATH COMMENT Reviewed by KT on 12/18/2023 12/18/2023 2:31 PM CDT [facility] Blood BLOOD SPECIMEN / Unknown Venipuncture / Unknown 12/15/2023 11:13 AM CDT 12/15/2023 11:19 AM CDT Narrative [facility] - 12/18/2023 2:31 PM CDT This procedure was originally ordered at [facility]. This procedure was originally ordered at [facility]. This procedure was originally ordered at [facility]. Lizeth Alarcon NP LABORATORY Performing Organization Address City/[facility]/ZIP Co de Phone Number [facility] [address] [place] [address], * (ABNORMAL) CBC WITH AUTO DIFFERENTIAL (12/15/2023 11:13 AM CDT) Only the most recent of2 resultswithin the time period is included. WHITE BLOOD COUNT 2.4(L) 4.5 - 11.0 thou/cu mm 12/15/2023 12:35 PM CDT [facility] RED BLOOD COUNT 3.50(L) 4.30 - 5.90 mil/cu mm 12/15/2023 12:35 PM T [facility] HEMOGLOBIN 7.6(L) 13.5 - 17.5 g/dL 12/15/2023 12:35 PM T [facility] HEMATOCRIT 27.5(L) 37.0 - 53.0 % 12/15/2023 12:35 PM CDT [facility] MCV 79(L) 80 - 100 fL 12/15/2023 12:35 PM [facility] MCH 21.7(L) 26.0 - 34.0 pg 12/15/2023 12:35 PM [facility] MCHC 27.6(L) 32.0 - 36.0 g/dL 12/15/2023 12:35 PM [facility] RDW 23.0(H) 11.5 - 15.5 % 12/15/2023 12:35 PM [facility] PLATELET COUNT 233 140 - 440 thou/cu mm 12/15/2023 12:35 PM [facility] MPV 12/15/2023 12:35 PM [facility] Comment:Unable to be determi amada Blood BLOOD SPECIMEN / Unknown Venipuncture / Unknown 12/15/2023 11:13 AM CDT 12/15/2023 11:19 AM [facility] - 12/15/2023 12:35 PM CDT This procedure was originally ordered at [facility]. This procedure was originally ordered at [facility]. This procedure was originally ordered at [facility]. Lizeth Alarcon NP HEMATOLOGY [facility] [address] [place], [place] [address] * (ABNORMAL) RED CELL MORPHOLOGY (12/15/2023 11:13 AM CDT) Only the most recent of2 resultswithin the time period is included. ELLIPTOCYTES Moderate 12/15/2023 12:34 PM [facility] POLYCHROMASIA Slight 12/15/2023 12:34 PM [facility] SCHISTOCYTES Few 12/15/2023 12:34 PM [facility] TEARDROP CELLS Few 12/15/2023 12:34 PM [facility] RBC COMMENT Present(A) RBC morphology appears normal, RBC morphology within normal limits for newborns. 12/15/2023 12:34 PM [facility] *BASOPHILIC STIPPLING Present 12/15/2023 12:34 PM CDT [facility] Blood BLOOD SPECIMEN / Unknown Venipuncture / Unknown 12/15/2023 11:13 AM CDT 12/15/2023 11:19 AM CDT [facility] LABORATORY - 12/15/2023 12:34 PM CDT This procedure was originally ordered at [facility]. This procedure was originally ordered at [facility]. This procedure was originally ordered at [facility]. Lizeth Alarcon NP HEMATOLOGY Performing Organization Address [facility] de Phone Number [facility] [address] [place] [address] * PLATELET ESTIMATE (12/15/2023 11:13 AM CDT) Only the most recent of2 resultswithin the time period is included. PLATELET ESTIMATE Adequate Adequate, No estimate 12/15/2023 12:34 PM CDT [facility] Blood BLOOD SPECIMEN / Unknown Venipuncture / Unknown 12/15/2023 11:13 AM CDT 12/15/2023 11:19 AM CDT [facility] LABORATORY - 12/15/2023 12:34 PM CDT This procedure was originally ordered at [facility]. This procedure was originally ordered at [facility]. This procedure was originally ordered at [facility]. Lizeth Alarcon NP HEMATOLOGY Performing Organization Address City/[facility]/ZIP Co de Phone Number [facility] [address] [place] [address] * (ABNORMAL) MANUAL DIFFERENTIAL (12/15/2023 11:13 AM CDT) Only the most recent of2 resultswithin the time period is included. % NEUTROPHILS 30.0 % 12/15/2023 12:34 PM CDT [facility] % LYMPHOCYTES 47.0 % 12/15/2023 12:34 PM [facility] % MONOCYTES 14.0 % 12/15/2023 12:34 PM [facility] % EOSINOPHILS 0.0 % 12/15/2023 12:34 PM [facility] % BASOPHILS 0.0 % 12/15/2023 12:34 PM [facility] % METAMYELOCYTES 1.0(H) <0.1 % 12/15/19 12:34 PM [facility] % MYELOCYTES 2.0(H) <0.1 % 12/15/2023 12:34 PM [facility] % BLASTS 5.0(H) None Seen % 12/15/2023 12:34 PM [facility] % PLASMA CELLS 1.0 % 12/15/2023 12:34 PM [facility] NEUTROPHILS ABSOLUTE 0.7(L) 1.7 - 7.0 thou/cu mm 12/15/2023 12:34 PM [facility] LYMPHOCYTES ABSOLUTE 1.1 0.9 - 2.9 thou/cu mm 12/15/2023 12:34 PM [facility] MONOCYTES ABSOLUTE 0.3 <0.9 thou/cu mm 12/15/2023 12:34 PM [facility] EOSINOPHILS ABSOLUTE 0.0 <0.5 thou/cu mm 12/15/2023 12:34 PM [facility] BASOPHILS ABSOLUTE 0.0 <0.3 thou/cu mm 12/15/2023 12:34 PM [facility] ABSOLUTE METAMYELOCYTES 0.0 <=0.0 thou/cu mm 12/15/2023 12:34 PM [facility] ABSOLUTE MYELOCYTES 0.0 <=0.0 thou/cu mm 12/15/2023 12:34 PM [facility] ABSOLUTE BLASTS 0.1(H) <=0.0 thou/cu mm 12/15/2023 12:34 PM [facility] PLASMA CELLS ABSOLUTE 0.0 thou/cu mm 12/15/2023 12:34 PM CDT [facility] ABS NRBC 0.1 thou /cu mm 12/15/2023 12:34 PM CDT [facility] MANUAL NRBC PER 100 CELLS 3.0 /100 CELLS 12/15/2023 12:34 PM CDT [facility] Blood BLOOD SPECIMEN / Unknown Venipuncture / Unknown 12/15/2023 11:13 AM CDT 12/15/2023 11:19 AM CDT [facility] LABORATORY - 12/15/2023 12:34 PM CDT This procedure was originally ordered at [facility]. This procedure was originally ordered at [facility]. This procedure was originally ordered at [facility]. Lizeth Alarcon NP HEMATOLOGY [facility] [address] [place] [address] * TYPE & SCREEN (12/15/2023 11:13 AM CDT) ABORH O Rh Negative 12/15/2023 1:13 PM CDT [facility] BLOOD BANK ANTIBODY SCREEN Negative Negative 12/15/2023 1:13 PM CDT [facility] BLOOD BANK SPECIMEN EXPIRATION DATE/TIME 12/18/23 23:59 12/15/2023 1:13 PM CDT [facility] BLOOD BANK Blood BLOOD SPECIMEN / Unknown Venipuncture / Unknown 12/15/2023 11:13 AM CDT 12/15/2023 11:20 AM CDT Lizeth Alarcon NP BLOOD BANK [facility] BLOOD BANK [address] [place] [address] * (ABNORMAL) REFERRAL SUSCEPTIBILITY (12/02/2023 3:40 PM CDT) CULTURE RESULT(A) 12/08/2023 10:57 AM CDT [facility] LABORATORY CULTURE Streptococcus group G 12/08/2023 10:57 AM CDT [facility] Comment:This isolate is pres umed to [...] group G CLARITHROMYCIN R Doctor Unknown MICROBIOLOGY [facility] [address] [place] [address], * PERIPHERAL BLD MORPHOLOGY (11/12/2023 8:56 AM CDT) Case Report Special Hematology Report ? Case: [id number] ? Authorizing Provider: ??Radha Edouard MD ?Collected: ? 11/12/2023 0856 ? Ordering Location: ? [facility] ? Received: ?11/12/2023 0857 ? [place] [address] ? Pathologist: ? Alfonso Ramesh, ? MD ? Specimen: ?Blood ? 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 6.5% BLASTS identified 2. 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 Moderate microcytic hypochromic anemia, suggestive of iron deficiency anemia 4. See comment 11/15/2023 1:55 PM [facility]- C[facility]AL LAB[facility]ATORY Comment Since the last described peripheral blood morphology performed with the bone marrow biopsy 09/25/2023 ([id number]), the blast count has remained essentially the [...] also reviewed by Mari Armijo MT, MS ([facility]). 11/15/2023 1:55 PM CDT [facility] Clinical Information The [...] ? 53 (L) 11/15/2023 1:55 PM CDT [facility]- C[facility]TRAL LABORATORY CBC and Differential HEMATOLOGY PARAMETERS Tested at: ??[facility] ? RESULTS ??EXPECTED VALUES WBC: ? 3.1 ?4.5-90u0348/cumm ?DECREASED RBC: ? 3.49 ? 4.30-5.90 mil/cumm ??DECREASED HGB: ? 8.0 ?13.5-17.5 gm/di ? DECREASED HCT: ? 27.7 ? 37-53% ?DECREASED MCV: ? 79.0 ? 80-100 fl ? MICROCYTIC MCH: ? 22.9 ? 26-34 pg ?DECREASED MCHC: ?28.9 ? 32-36 gm/dl ? HYPOCHROMIC RDW: ? 22.3 ? 11.5-15.5% ?ELEVATED PLT: ? 357 ?140-252g9869/uL MPV: ? Unable to be determined ? [...] ??(0%) ? BLASTS 11/15/2023 1:55 PM CDT [facility] Reticulocytes Retic: 6.6 0.5-1.5% ELEVATED 11/15/2023 1:55 PM CDT [facility] Microscopic Description The final diagnosis is based on microscopic examination of an appropriately stained blood smear. 11/15/2023 1:55 PM CDT [facility] Additional Information Interpreted at [facility], Central Laboratory - [address], [place] [address] 11/15/2023 1:55 PM CDT [facility] Blood BLOOD SPECIMEN / Unknown 11/12/2023 [...] Rfl: This procedure was originally ordered at [facility] [place] [facility]. Radha Edouard MD HEMATOLOGY Performing Organization Address [facility] Co de Phone Number [facility] [address] [place] [address], * (ABNORMAL) LD,TOTAL (11/12/2023 8:56 AM CDT) [facility] LD,TOTAL 411(H) 135 - 225 IU/L 11/12/2023 10:39 AM CDT [facility] Blood BLOOD SPECIMEN / Unknown Butterfly / Unknown 11/12/2023 8:56 AM CDT 11/12/2023 8:57 AM CDT Radha Edouard MD CHEMISTRY Performing Organization Address [facility]/ZIP Co de Phone Number [facility] [address] [place] [address] * (ABNORMAL) RETICULOCYTES (11/12/2023 8:56 AM CDT) [facility] RETIC% 6.6(H) 0.5 - 1.5 % 11/12/2023 1:15 PM CDT [facility] RETIC (ABSOLUTE) 0.24(H) 0.03 - 0.08 mil/cu mm 11/12/2023 1:15 PM CDT [facility] Blood BLOOD SPECIMEN / Unknown Butterfly / Unknown 11/12/2023 8:56 AM CDT 11/12/2023 8:57 AM CDT Narrative [facility] - 11/12/2023 1:15 PM CDT This procedure was originally ordered at [facility]. Radha Edouard MD HEMATOLOGY [facility] [address] [place] [address], * (ABNORMAL) HEPATIC FUNCTION PANEL (11/12/2023 8:56 AM CDT) ALBUMIN 2.9(L) 4.0 - 4.9 g/dL 11/12/2023 9:43 AM [facility] PROTEIN,TOTAL 10.2(H) 6.0 - 8.0 g/dL 11/12/2023 9:43 AM [facility] BILIRUBIN,TOTAL 0.5 0.0 - 1.2 mg/dL 11/12/2023 9:43 AM [facility] BILIRUBIN,DIRECT <0.2 0.0 - 0.3 mg/dL 11/12/2023 9:43 AM [facility] BILIRUBIN,INDIRE CT 11/12/2023 9:43 AM [facility] Comment:Unable to calculate, Direct Bili <0.2 ALK PHOSPHATASE 87 40 - 129 IU/L 11/12/2023 9:43 AM [facility] ALT (SGPT) <5(L) 10 - 50 IU/L 11/12/2023 9:43 AM [facility] AST (SGOT) 46 10 - 50 IU/L 11/12/2023 9:43 AM [facility] Blood BLOOD SPECIMEN / Unknown Butterfly / Unknown 11/12/2023 8:56 AM CDT 11/12/2023 8:57 AM CDT Radha Edouard MD CHEMISTRY [facility] [address] [place] [address] * (ABNORMAL) BASIC METABOLIC PANEL (11/12/2023 8:56 AM CDT) SODIUM 132(L) 136 - 145 mmol/L 11/12/2023 9:28 AM [facility] POTASSIUM 4.0 3.5 - 5.1 mmol/L 11/12/2023 9:28 AM [facility] CHLORIDE 101 98 - 107 mmol/L 11/12/2023 9:28 AM [facility] CO2,TOTAL 22 22 - 29 mmol/L 11/12/2023 9:28 AM [facility] ANION GAP 9 5 - 18 11/12/2023 9:28 AM [facility] GLUCOSE 98 70 - 99 mg/dL 11/12/2023 9:28 AM [facility] CALCIUM 8.1(L) 8.8 - 10.2 mg/dL 11/12/2023 9:28 AM [facility] BUN 17 8 - 23 mg/dL 11/12/2023 9:28 AM [facility] CREATININE 1.44(H) 0.70 - 1.20 mg/dL 11/12/2023 9:28 AM [facility] BUN/CREAT RATIO 12 10 - 20 9:28 AM [facility] eGFR 53(L) >90 mL/min/1.7 3m2 11/12/2023 9:28 AM [facility] Comment:As of 2021, eG [...] Radha Edouard MD CHEMISTRY Performing Organization Address [facility] Co de Phone Number [facility] [address] [place], [place] [phone] * SCAN CORRESP-LABORATORY RESULTS (10/28/2023 12:00 AM [...] MD LAB BILL ONLY Performing Organization Address [facility] de Phone Number [facility] [address] [place] [address], [place] * MYELOID NGS (LAB ONLY) (09/25/2023 9:10 AM CDT) Bone Marrow (Bone Marrow Aspirate) 09/25/2023 9:10 AM CDT 09/26/2023 3:40 PM CDT David Gordon MD PATHOLOGY/CYTOLOGY Performing Organization Address [facility] Co de Phone Number [facility] [address] [place] [address], * BM/LB CHROM (09/25/2023 9:10 AM CDT) Bone Marrow (Bone Marrow Aspirate) 09/25/2023 9:10 AM CDT 09/26/2023 2:58 PM CDT David Gordon MD LABORATORY Performing Organization Address City/[facility] Co de Phone Number [facility] [address] [place] [address], [place] * BM WETLAB (09/25/2023 9:10 AM CDT) Bone Marrow (Bone Marrow Aspirate) 09/25/2023 9:10 AM CDT 09/26/2023 2:58 PM CDT David Gordon MD LABORATORY Performing Organization Address [facility] Co de Phone Number [facility] [address] [place] [address], [place] * OC (09/25/2023 9:10 AM CDT) Bone Marrow (Bone Marrow Aspirate) 09/25/2023 9:10 AM CDT 09/26/2023 2:58 PM CDT David Gordon MD LABORATORY Performing Organization Address [facility] Co de Phone Number [facility] [employer] LABORATORY [address] [place] [address], [place] * OB (09/25/2023 9:10 AM CDT) Bone Marrow (Bone Marrow Aspirate) 09/25/2023 9:10 AM CDT 09/26/2023 2:58 PM CDT David Gordon MD LABORATORY Performing Organization Address [facility] Co de Phone Number [facility] [employer] [facility] [address] [place] [address], [place] * CHROM TECH 2 (09/25/2023 9:10 AM CDT) Bone Marrow (Bone Marrow Aspirate) 09/25/2023 9:10 AM CDT 09/26/2023 2:58 PM CDT David Gordon MD LABORATORY Performing Organization Address [facility] Co de Phone Number [facility] [employer] [facility] [address] [place] [address], [place] * CHROM TECH 1 (09/25/2023 9:10 AM CDT) Bone Marrow (Bone Marrow Aspirate) 09/25/2023 9:10 AM CDT 09/26/2023 2:58 PM CDT David Gordon MD LABORATORY Performing Organization Address [facility] de Phone Number [facility] LAB[facility] [address] [place] [address], [place] * BONE MARROW DIFFERENTIAL (09/25/2023 9:10 AM CDT) Bone Marrow (Bone Marrow Aspirate) 09/25/2023 9:10 AM CDT 09/29/2023 7:59 AM CDT David Gordon MD LABORATORY Performing Organization Address [facility] de Phone Number [facility] [address] [place] [address], [place] * CYTOGENETIC BONE MARROW STUDIES (09/25/2023 9:10 AM CDT) RFR Acute Myeloid Leukemia, myeloid neoplasm. 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 See comments. 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 ??Trisomy 8 is classified as an intermediate prognostic risk stratification category in AML (NCCN, 202). Clinicopathologic correlation of these results is recommended. 10/02/2023 12:17 PM CDT [facility]- ENTRAL LABORATORY COMMENTS A preliminary chromosome result was provided to Manny Alfredo MD on 09/29/2023. 10/02/2023 12:17 PM CDT [facility] ENTRAL LABORATORY LAB TEST DETAILS Fully Analyzed Metaphases: ??20 Partially Analyzed Metaphases: ??0 Full Karyotypes: ??3 10/02/2023 12:17 PM CDT [facility]- ENTRAL LABORATORY SOURCE Bone Marrow (NaHep) [id number] B1-2 10/02/2023 12:17 PM CDT [facility] ENTRIL LABORATORY METHODS Cultures used in chromosome analysis were non-stimulated. Chromosome analysis is performed on consecutive analyzable G-banded metaphases. 10/02/2023 12:17 PM CDT [facility] REFERENCES National Comprehensive Cancer Network. (2023). Acute Myeloid Leukemia (version 3.2023). Retrieved from https://www.nccn.o rg/professionals/p hysician_gls/pdf/a ml.pdf. Kenia SHarmeet., Alexei Dominguez, Gurjit Pillai., Rachell Kebede., Alivia Nesbitt., Sravani James., Isai Wilson. (Eds): WHO Classification of Tumours of Haematopoietic and Lymphoid Tissues. (Revised 4th edition) IARC: Michael 2017. 10/02/2023 12:17 PM CDT [facility] ENTRAL LABORATORY DISCLAIMER This test was developed and its performance characteristics determined by the [facility]etics [facility]. It has not [...] 12:17 PM CDT [facility] ENTRIL LABORATORY Bone Marrow (Bone Marrow Aspirate) 09/25/2023 9:10 AM CDT 09/26/2023 2:58 PM CDT David Gordon MD LABORATORY [facility]-CENTRAL LABORATORY [address] [place] [address], [place] * BONE MARROW STUDY (09/25/2023 9:10 AM CDT) Case Report Bone Marrow Pathology Report ?Case: [id number] ? Authorizing Provider: ??David Gordon MD ?Collected: ? 09/25/2023 0910 ? Ordering Location: ? [facility] C[facility]TRAL LAB ?Received: ?09/26/2023624 ? Pathologist: ? Manny Alfredo MD ? Specimens: ?? A) - Bone Marrow Aspirate ? B) - Bone Marrow Aspirate (Heparinized) ? C) - Bone Marrow Core Biopsy ? D) - Peripheral Blood ? 10/03/2023 8:51 AM CDT [facility]- CENTRAL LABORATORY Amendment 10/03/2023 - Amendment to report [facility] Myeloid Targeted Next Generation Sequencing (NGS) results. Please see diagnosis and attached scanned report. Results are communicated with Dr. Edouard via Secure Chat on 10/03/[address] Alfredo. 10/03/2023 8:51 AM CDT [facility] Final Diagnosis BONE MARROW AND PERIPHERAL [...] see attached report 10/03/2023 8:51 AM CDT [facility] CENTRAL LABORATORY Amendment electronically signed by Manny [...] dysgranulopoiesis and lymphocytopenia, and mild absolute monocytosis ([id number], 09/10/23). A bone marrow biopsy is performed for further characterization. 10/03/2023 8:51 AM [facility] LABORAT[facility] PROCEDURE A RIGHT lateral bone marrow biopsy and unilateral aspiration procedure is performed at [facility] on 09/25/23. VIVIANA Monterroso performed the procedure using an 8 gauge manual needle. The ordering physicians are Drs. Gordon and Silke. The specimen is inked orange. EVM 09/26/2023 10/03/2023 8:51 AM [facility] CBC and Differential HEMATOLOGY PARAMETERS Tested at: ??[facility] ? RESULTS ??EXPECTED VALUES WBC: ? 1.6 ?4.5-88n8595/cumm ?DECREASED RBC: ? 3.8 ?4.30-5.90 mil/cumm ??DECREASED HGB: ? 8.5 ?13.5-17.5 gm/di ? DECREASED HCT: ? 30.7 ? 37-53% ?DECREASED MCV: ? 81.0 ? 80-100 fl ? NORMOCYTIC MCH: ? 23.0 ? 26-34 pg ?DECREASED MCHC: ?28.0 ? 32-36 gm/dl ? HYPOCHROMIC RDW: ? 22.5 ? 11.5-15.5% ?ELEVATED PLT: ? 253 ?140-157p4523/uL ? Retic: ?? 7.91 ?0.5-1.5% ? ELEVATED Differential ?Tested at: ??[facility] ?Absolute (%) ?Expected (%) ?(x10*9/L) ? (x10*9/L) Neutrophils: ?0.5 (31.3) ?1.7-7.0 (42-72%) ??DECREASED Lymphocytes: ?0.6 (37.5) ?0.9-2.9 (20-44%) ??DECREASED Monocytes: ?0.4 (25) ? <0.9 (0-11%) ? Blasts: ? 0.1 (6.3) ? 0 ??(0%) ? BLASTS 10/03/2023 8:51 AM CDT [facility]- CENTRAL LABORATORY Reticulocytes Retic: 7.91 0.5-1.5% ELEVATED 10/03/2023 8:51 AM CDT [facility]- CENTRAL LABORATORY Bone Marrow Differential Blasts: [...] cm Bone core and clot section color: ??Himrod PERIPHERAL BLOOD: The peripheral smear features support [...] Decreased Ringed sideroblasts: Absent 10/03/2023 8:51 AM [facility] Flow Cytometry Summary Diagnostic Acute Myeloid [...] Trace positive markers: CD7/CD36 Negative markers: CD65/CD15/CD10/CD64 /JF422n/CD14/CD56/C D11b/CD16/CD2/CD5/C D235a/CD19/CD22(CYT O)/CD79a(CYTO)/TdT( n)/CD3(CYTO) Quality Assessment Viability (7-AAD): 62% Nucleated cells analyzed: [id number] Limit of detection (LOD): 0.1% These results and cytograms have been verified by Dr. Alfredo. This test was developed and its performance characteristics verified by [facility]. It has not been cleared or approved [...] Alvarez, 09/26/2023 3:50 PM 10/03/2023 8:51 AM T [facility] Cytogenetics Summary Cytogenetic testing has been ordered and will be reported separately. 10/03/2023 8:51 AM T [facility] Other Testing Immunostains were performed on the bone core biopsy. CD34 (blast marker) (manual morphometry: ??25% 10/03/2023 8:51 AM T [facility] CENTRAL LABORATORY Additional Information Interpreted at [facility] - [address], [place] [address] Immunohistochemistr y controls were reviewed and approved by the pathologist during this examination. 10/03/2023 8:51 AM CDT [facility] Bone Marrow (Bone Marrow Aspirate) 09/25/2023 [...] David Gordon MD LABORATORY Performing Organization Address City/State/[facility] Co de Phone Number [facility] [address] [place] [address], * CT CHEST ABDOMEN PELVIS WO (01/03/2023 [...] Reactive Non Reactive 10/11/2022 12:08 PM CDT [facility] ([facility]) Blood BLOOD SPECIMEN / Unknown Venipuncture / Unknown 10/09/2022 9:06 AM CDT 10/09/2022 9:06 AM CDT Narrative [facility] - 10/11/2022 12:08 PM CDT Performed at: ??[address] ??[id number] Insurance Adviser: Zane Rebolledo MD, Phone: ??[phone] Radha Edouard MD LABORATORY [facility] ([facility]) [address] [place] [address], [place] * CT CHEST ABDOMEN PELVIS W [...] - 199 mg/dL 09/09/2022 12:53 PM T [facility] TRIGLYCERIDES 77 <150 mg/dL 09/09/2022 12:53 PM T [facility] HDL CHOLESTEROL 34(L) >40 mg/dL 12:53 PM T [facility] NON-HDL CHOLESTEROL 115 <145 mg/dl 09/09/2022 12:53 PM T [facility] CHOL/HDL RATIO 4.38 <4.50 09/09/2022 12:53 PM CDT [facility] LDL CHOLESTEROL 100 <=130 mg/dL 09/09/2022 12:53 PM CDT [facility] VLDL CHOLESTEROL 15 <=30 mg/dL 09/09/2022 12:53 PM CDT [facility] PROVIDER ORDERED STATUS RANDOM 09/09/2022 12:53 PM CDT [facility] Blood BLOOD SPECIMEN / Unknown Butterfly / Unknown 09/09/2022 12:06 PM CDT 09/09/2022 12:07 PM CDT David Ambrocio MD CHEMISTRY [facility] [address] [place] [address] from Last 3 Months or Most Recently [...] Discussion: Reviewed Preferences wit h Care Teams Carry In Worker Relationship Specialty Start Date End Date David Ambrocio MD [address] [place] [address] PCP - General Family Practice 11/27/22 Elvira Morin RN [address] [place] [address] Nurse Navigator - Oncology Registered Nurse 10/18/22 Radha Edouard MD [address] [place] [address] Medical Oncologist Hematology and Oncology 11/21/22 Lizeth Alarcon, [employer] [address] [place] [address] Nurse Practitioner Hematology and Oncology 11/21/22 Jaylon Raymond LSW [address] [place] [address] [employer] Tube Tester 01/06/23 [facility] [address] [facility] [place] [address] 01/21/23
== END 2023-12-23 14:37 | disposition home or self-care (01) ==
LOC: WOUND 14:37
PROVIDERS: PCP Internal Medicine; Visit Provider Nurse Practitioner Family
DX: I87.311 Chronic venous hypertension (idiopathic) with ulcer of right lower extremity (principal); L97.818 Non-pressure chronic ulcer of other part of right lower leg with other specified severity; D64.9 Anemia, unspecified
CPT/HCPCS: 97602; G0463

== ENCOUNTER 2023-12-30 14:43 | Outpatient (CLI) | payer MEDICARE, BC, SELFPAY ==
--- OUTSIDE RECORDS SUMMARY | 2023-12-30 14:45 | XMS_ITS | Clinical Summary ---
Author Organization 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); Cellulitis of right lower extremity; Pancytopenia (HC) 12/17/2023 Travel 12/15/2023 11:05 AM CDT - 12/15/2023 11:59 PM CDT Hospital Encounter [facility] [address] [place] [address] 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) 12/15/[address] [address] Lizeth Alarcon, [employer] Appointment 12/15/2023 Travel 12/05/2023 Lab Requisition [facility] [phone] Unknown, Doctor 11/19/2023 11:15 AM CDT Office Visit [facility] [address] [place] [address] Lizeth Alarcon, [employer] Follow Up (Pancytopenia (HC) [D61.818]//) 11/19/2023 Travel 11/19/2023 Telephone [facility] [address] [place] [address] Lizeth Alarcon, [employer] Appointment 11/12/2023 8:50 AM CDT - 11/12/2023 11:59 PM CDT Hospital Encounter [facility] [address] [place] [address] Pancytopenia (HC) [D61.818] 11/12/2023 Travel 10/28/2023 Orders Only [facility] Scanner 1 scan: (1-Ord) INCOMING RECORDS-CT, [facility], 10/28/2023 10/28/2023 Orders Only [facility] Scanner 1 scan: (1-Ord) INCOMING RECORDS-LABS, [facility], 10/28/2023 10/28/2023 Orders Only [facility] Scanner 1 scan: (1-Ord) INCOMING RECORDS-LABS, [facility], 10/28/2023 10/27/2023 Telephone [facility] [address] [place] [address] [facility] Cancer Referral (AML) from Last 3 Months Immunizations Name Administration [...] Info) Description 12/31/2023 9:00 AM CDT Appointment [facility] [address] [place] [address] 01/12/2024 1:30 PM CDT Appointment [facility] [address] [place] [address] 01/12/2024 2:30 PM CDT Office Visit [facility] 200 [facility] PATRIA Nava [phone] Radha Edouard MD [address] [facility] [place] [phone] Health Maintenance Due Date Last Done Comments [...] Diagnosis Comments TRANSFUSE RBC (NURSE COMMUNICATION ORDER) [facility] 12/17/2023 8:57 AM CDT 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) Cellulitis of right lower extremity Pancytopenia (HC) RBC W/O TYPE & SCREEN [facility] 12/17/2023 8:39 AM CDT 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) Cellulitis of right lower extremity Pancytopenia (HC) RED BLOOD CELLS EA UNIT [facility] 12/15/2023 11:15 AM CDT TYPE & SCREEN [...] CDT SCAN CORRESP-IMAGING 10/28/2023 12:[address] CHEST ABDOMEN PELVIS [...] CDT) QUANTITY 1 12/17/2023 8:39 AM CDT [facility] BLOOD BANK Blood BLOOD SPECIMEN / Unknown 12/17/2023 8:30 AM CDT Lizeth Alarcon NP BLOOD BANK Performing Organization Address [facility]/ZIP Co de Phone Number [facility] BLOOD BANK [address] [place] [address] * RED BLOOD CELLS EA UNIT (12/15/2023 11:15 AM CDT) CROSSMATCH Compatible Compatible [facility] BLOOD BANK PRODUCT BLOOD TYPE O Rh Negative [facility] BLOOD BANK PRODUCT ID NUMBER [id number] [facility] BLOOD BANK PRODUCT STATUS Transfused [facility] BLOOD BANK PRODUCT DESCRIPTION RBC -1 LR [facility] BLOOD BANK PRODUCT CODE [id number] [facility] BLOOD BANK ISSUE DATE/TIME 12/17/23 08:52 [facility] BLOOD BANK Lizeth Alarcon NP BLOOD BANK Performing Organization Address City/[facility]/ZIP Co de Phone Number [facility] BLOOD BANK [address] [place] [address] * CWS PATH REVIEW HEMATOLOGY (12/15/2023 11:13 AM CDT) PATH COMMENT Reviewed by KT on 12/18/2023 12/18/2023 2:31 PM CDT [facility] Blood BLOOD SPECIMEN / Unknown Venipuncture / Unknown 12/15/2023 11:13 AM CDT 12/15/2023 11:19 AM CDT Narrative [facility] - 12/18/2023 2:31 PM CDT This procedure was originally ordered at [facility]. This procedure was originally ordered at [facility] This procedure was originally ordered at [facility]. Lizeth Alarcon NP LABORATORY [facility] [address] [place] [address], * (ABNORMAL) CBC WITH AUTO DIFFERENTIAL (12/15/2023 11:13 AM CDT) Only the most recent of2 resultswithin the time period is included. WHITE BLOOD COUNT 2.4(L) 4.5 - 11.0 thou/cu mm 12/15/2023 12:35 PM [facility] RED BLOOD COUNT 3.50(L) 4.30 - 5.90 mil/cu mm 12/15/2023 12:35 PM [facility] HEMOGLOBIN 7.6(L) 13.5 - 17.5 g/dL 12/15/2023 12:35 PM [facility] HEMATOCRIT 27.5(L) 37.0 - 53.0 % 12/15/2023 12:35 PM [facility] MCV 79(L) 80 - 100 fL 12/15/2023 12:35 PM [facility] MCH 21.7(L) 26.0 - 34.0 pg 12/15/2023 12:35 PM [facility] MCHC 27.6(L) 32.0 - 36.0 g/dL 12/15/2023 12:35 PM [facility] RDW 23.0(H) 11.5 - 15.5 % 12/15/2023 12:35 PM [facility] PLATELET COUNT 233 140 - 440 thou/cu mm 12/15/2023 12:35 PM [facility] MPV 12/15/2023 12:35 PM [facility] Comment:Unable to be determi amada Blood BLOOD SPECIMEN / Unknown Venipuncture / Unknown 12/15/2023 11:13 AM CDT 12/15/2023 11:19 AM T [facility] - 12/15/2023 12:35 PM CDT This procedure was originally ordered at [facility]. This procedure was originally ordered at [facility]. This procedure was originally ordered at [facility]. Lizeth Alarcon NP HEMATOLOGY Performing Organization Address [facility] Co de Phone Number [facility] [address] [place] [address] * (ABNORMAL) RED CELL MORPHOLOGY (12/15/2023 11:13 AM CDT) Only the most recent of2 resultswithin the time period is included. ELLIPTOCYTES Moderate 12/15/2023 12:34 PM CDT [facility] POLYCHROMASIA Slight 12/15/2023 12:34 PM CDT [facility] SCHISTOCYTES Few 12/15/2023 12:34 PM CDT [facility] TEARDROP CELLS Few 12/15/2023 12:34 PM T [facility] RBC COMMENT Present(A) RBC morphology appears normal, RBC morphology within normal limits for newborns. 12/15/2023 12:34 PM CDT [facility] *BASOPHILIC STIPPLING Present 12/15/2023 12:34 PM CDT [facility] Blood BLOOD SPECIMEN / Unknown Venipuncture / Unknown 12/15/2023 11:13 AM CDT 12/15/2023 11:19 AM CDT [facility] - 12/15/2023 12:34 PM CDT This procedure was originally ordered at [facility]. This procedure was originally ordered at [facility]. This procedure was originally ordered at [facility]. Lizeth Alarcon NP HEMATOLOGY Performing Organization Address [facility]/ZIP Co de Phone Number [facility] [address] [place] [address] * PLATELET ESTIMATE (12/15/2023 11:13 AM CDT) Only the most recent of2 resultswithin the time period is included. PLATELET ESTIMATE Adequate Adequate, No estimate 12/15/2023 12:34 PM [facility] Blood BLOOD SPECIMEN / Unknown Venipuncture / Unknown 12/15/2023 11:13 AM CDT 12/15/2023 11:19 AM CDT [facility] - 12/15/2023 12:34 PM CDT This procedure was originally ordered at [facility]. This procedure was originally ordered at [facility]. This procedure was originally ordered at [facility]. Lizeth Alarcon NP HEMATOLOGY [facility] [address] [place] [address] * (ABNORMAL) MANUAL DIFFERENTIAL (12/15/2023 11:13 AM CDT) Only the most recent of2 resultswithin the time period is included. [facility] % NEUTROPHILS 30.0 % 12/15/2023 12:34 PM [facility] % LYMPHOCYTES 47.0 % 12/15/2023 12:34 PM [facility] % MONOCYTES 14.0 % 12/15/2023 12:34 PM [facility] % EOSINOPHILS 0.0 % 12/15/2023 12:34 PM [facility] % BASOPHILS 0.0 % 12/15/2023 12:34 PM [facility] % METAMYELOCYTES 1.0(H) <0.1 % 12/15/19 24 12:34 PM [facility] % MYELOCYTES 2.0(H) <0.1 % 12/15/2023 12:34 PM [facility] % BLASTS 5.0(H) None Seen % 12/15/2023 12:34 PM [facility] % PLASMA CELLS 1.0 % 12/15/2023 12:34 PM [facility] NEUTROPHILS ABSOLUTE 0.7(L) 1.7 - 7.0 thou/cu mm 12/15/2023 12:34 PM [facility] LYMPHOCYTES ABSOLUTE 1.1 0.9 - 2.9 thou/cu mm 12/15/2023 12:34 PM [facility] MONOCYTES ABSOLUTE 0.3 <0.9 thou/cu mm 12/15/2023 12:34 PM [facility] EOSINOPHILS ABSOLUTE 0.0 <0.5 thou/cu mm 12/15/2023 12:34 PM [facility] BASOPHILS ABSOLUTE 0.0 <0.3 thou/cu mm 12/15/2023 12:34 PM [facility] ABSOLUTE METAMYELOCYTES 0.0 <=0.0 thou/cu mm 12/15/2023 12:34 PM [facility] ABSOLUTE MYELOCYTES 0.0 <=0.0 thou/cu mm 12/15/2023 12:34 PM [facility] ABSOLUTE BLASTS 0.1(H) <=0.0 thou/cu mm 12/15/2023 12:34 PM [facility] PLASMA CELLS ABSOLUTE 0.0 thou/cu mm 12/15/2023 12:34 PM [facility] ABS NRBC 0.1 thou /cu mm 12/15/2023 12:34 PM [facility] MANUAL NRBC PER 100 CELLS 3.0 /100 CELLS 12/15/2023 12:34 PM [facility] Blood BLOOD SPECIMEN / Unknown Venipuncture / Unknown 12/15/2023 11:13 AM CDT 12/15/2023 11:19 AM T [facility] LABORATORY - 12/15/2023 12:34 PM CDT This procedure was originally ordered at [facility]. This procedure was originally ordered at [facility]. This procedure was originally ordered at [facility]. Lizeth Alarcon NP HEMATOLOGY [facility] [address] [place] [address] * TYPE & SCREEN (12/15/2023 11:13 AM CDT) ABORH O Rh Negative 12/15/2023 1:13 PM CDT [facility] BLOOD BANK ANTIBODY SCREEN Negative Negative 12/15/2023 1:13 PM CDT [facility] BLOOD BANK SPECIMEN EXPIRATION DATE/TIME 12/18/23 23:59 12/15/2023 1:13 PM CDT [facility] BLOOD BANK Blood BLOOD SPECIMEN / Unknown Venipuncture / Unknown 12/15/2023 11:13 AM CDT 12/15/2023 11:20 AM CDT Lizeth Alarcon [employer] BLOOD BANK [facility] BLOOD BANK [address] [place] [address] * (ABNORMAL) REFERRAL SUSCEPTIBILITY (12/02/2023 3:40 PM CDT) CULTURE RESULT(A) 12/08/2023 10:57 AM CDT [facility] [email or web address] LABORATORY-CE NTRAL LABORATORY CULTURE Streptococcus group G 12/08/2023 10:57 AM CDT [facility]ORAT[facility] Comment:This isolate is pres [...] group G CLARITHROMYCIN R Doctor Unknown MICROBIOLOGY [facility] [address] [place] [address], * PERIPHERAL BLD MORPHOLOGY (11/12/2023 8:56 AM CDT) Case Report Special Hematology Report ? Case: [id number] ? Authorizing Provider: ??Radha Edouard MD ?Collected: ? 11/12/2023 0856 ? Ordering Location: ? [facility] ? Received: ?11/12/2023 08 ? [facility] ? Pathologist: ? Alfonso Ramesh, ? MD ? Specimen: ?Blood ? 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 6.5% BLASTS identified 2. 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 Moderate microcytic hypochromic anemia, suggestive of iron deficiency anemia 4. See comment 11/15/2023 1:55 PM CDT [facility] Comment Since the last described peripheral blood morphology performed with the bone marrow biopsy 09/25/2023 ([id number]), the blast count has remained essentially the [...] also reviewed by Mari Armijo MT, MS ([facility]). 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 Chromosome analysis revealed a +8 mutation. Myeloid NGS was positive for ASXL1, BRAF, CEBPA, IDH1, and SRSF2 mutations. 11/12/23 08:56 CREATININE: 1.44 (H) eGFR: ? 53 (L) 11/15/2023 1:55 PM CDT [facility] LAB[facility]AT[facility] CBC and Differential HEMATOLOGY PARAMETERS Tested at: ??[facility] ? RESULTS ??EXPECTED VALUES WBC: ? 3.1 ?4.5-54c0538/cumm ?DECREASED RBC: ? 3.49 ? 4.30-5.90 mil/cumm ??DECREASED HGB: ? 8.0 ?13.5-17.5 gm/di ? DECREASED HCT: ? 27.7 ? 37-53% ?DECREASED MCV: ? 79.0 ? 80-100 fl ? MICROCYTIC MCH: ? 22.9 ? 26-34 pg ?DECREASED MCHC: ?28.9 ? 32-36 gm/dl ? HYPOCHROMIC RDW: ? 22.3 ? 11.5-15.5% ?ELEVATED PLT: ? 357 ?140-631q9653/uL MPV: ? Unable to be determined ? Retic: ?? 6.6 ?0.5-1.5% ?ELEVATED Differential ?Tested at: ??[facility] ?Absolute (%) ?Expected (%) ?(x10*9/L) ? (x10*9/L) Neutrophils: ?0.8 (25.8) ?1.7-7.0 (42-72%) ??DECREASED Lymphocytes: ?1.2 (38.7) ?0.9-2.9 (20-44%) ?? Monocytes: ?0.7 (22.6) ? <0.9 (0-11%) ? Eosinophils: ?0.1 (3.2) ?<0.5 (0-2%) ? Promyelocytes: ??0.1 (3.2) ?<0.1 (<0.1%) ? ELEVATED Blasts: ? 0.2 (6.5) ? 0 ??(0%) ? BLASTS 11/15/2023 1:55 PM CDT [facility] Reticulocytes Retic: 6.6 0.5-1.5% ELEVATED 11/15/2023 1:55 PM CDT [facility] Microscopic Description The final diagnosis is based on microscopic examination of an appropriately stained blood smear. 11/15/2023 1:55 PM CDT [facility] Additional Information Interpreted at [facility] - [address] [facility] [address], [place] [address] 11/15/2023 1:55 PM CDT [facility] Blood BLOOD SPECIMEN / Unknown 11/12/2023 [...] Rfl: This procedure was originally ordered at [facility]. Radha Edouard MD HEMATOLOGY Performing Organization Address [facility] Co de Phone Number [facility] [address] [address], [place] * (ABNORMAL) LD,TOTAL (11/12/2023 8:56 AM CDT) Pathologist [facility] LD,TOTAL 411(H) 135 - 225 IU/L 11/12/2023 10:39 AM CDT [facility] Blood BLOOD SPECIMEN / Unknown Butterfly / Unknown 11/12/2023 8:56 AM CDT 11/12/2023 8:57 AM CDT Radha Edouard MD CHEMISTRY Performing Organization Address [facility] de Phone Number [facility] [address] [place] [address] * (ABNORMAL) RETICULOCYTES (11/12/2023 8:56 AM CDT) [facility] RETIC% 6.6(H) 0.5 - 1.5 % 11/12/2023 1:15 PM CDT [facility] RETIC (ABSOLUTE) 0.24(H) 0.03 - 0.08 mil/cu mm 11/12/2023 1:15 PM CDT [facility] Blood BLOOD SPECIMEN / Unknown Butterfly / Unknown 11/12/2023 8:56 AM CDT 11/12/2023 8:57 AM CDT Narrative [facility] - 11/12/2023 1:15 PM CDT This procedure was originally ordered at [facility]. Radha Edouard MD HEMATOLOGY Performing Organization Address [facility] Co de Phone Number [facility] [address] [address], [place] * (ABNORMAL) HEPATIC FUNCTION PANEL (11/12/2023 8:56 AM CDT) Pathologist [facility] ALBUMIN 2.9(L) 4.0 - 4.9 g/dL 11/12/2023 9:43 AM T [facility] PROTEIN,TOTAL 10.2(H) 6.0 - 8.0 g/dL 11/12/2023 9:43 AM T [facility] BILIRUBIN,TOTAL 0.5 0.0 - 1.2 mg/dL 11/12/2023 9:43 AM [facility] BILIRUBIN,DIRECT <0.2 0.0 - 0.3 mg/dL 11/12/2023 9:43 AM T [facility] BILIRUBIN,INDIRE CT 11/12/2023 9:43 AM [facility] Comment:Unable to calculate, Direct Bili <0.2 ALK PHOSPHATASE 87 40 - 129 IU/L 11/12/2023 9:43 AM [facility] ALT (SGPT) <5(L) 10 - 50 IU/L 11/12/2023 9:43 AM [facility] AST (SGOT) 46 10 - 50 IU/L 11/12/2023 9:43 AM [facility] Blood BLOOD SPECIMEN / Unknown Butterfly / Unknown 11/12/2023 8:56 AM CDT 11/12/2023 8:57 AM CDT Radha Edouard MD CHEMISTRY Performing Organization Address City/[facility] Co de Phone Number [facility] [address] [place] [address] * (ABNORMAL) BASIC METABOLIC PANEL (11/12/2023 8:56 AM CDT) Pathologist [facility] SODIUM 132(L) 136 - 145 mmol/L 11/12/2023 9:28 AM T [facility] POTASSIUM 4.0 3.5 - 5.1 mmol/L 11/12/2023 9:28 AM [facility] CHLORIDE 101 98 - 107 mmol/L 11/12/2023 9:28 AM [facility] CO2,TOTAL 22 22 - 29 mmol/L 11/12/2023 9:28 AM [facility] ANION GAP 9 5 - 18 11/12/2023 9:28 AM [facility] GLUCOSE 98 70 - 99 mg/dL 11/12/2023 9:28 AM [facility] CALCIUM 8.1(L) 8.8 - 10.2 mg/dL 11/12/2023 9:28 AM [facility] BUN 17 8 - 23 mg/dL 11/12/2023 9:28 AM [facility] CREATININE 1.44(H) 0.70 - 1.20 mg/dL 11/12/2023 9:28 AM [facility] BUN/CREAT RATIO 12 10 - 20 9:28 AM [facility] eGFR 53(L) >90 mL/min/1.7 3m2 11/12/2023 9:28 AM [facility] Comment:As of 2021, eG FR is calculated by the CKD-EPI creatinine equation without race adjustment. ??eGFR can be influenced by muscle mass, exercise, and diet. ??The reported eGFR is an estimation only and is only applicable if the renal function is stable. Blood BLOOD SPECIMEN / Unknown Butterfly / Unknown 11/12/2023 8:56 AM CDT 11/12/2023 8:57 AM CDT Radha Edouard MD CHEMISTRY [facility] [address] [place] [address] * SCAN CORRESP-LABORATORY RESULTS (10/28/2023 12:00 AM [...] low as reasonably achievable. Dictated by Ap Smimons MD @ 01/03/2023 3:02:28 AM (Electronically Signed) [facility] [facility] * LC HCV ANTIBODY RFX TO QUANT PCR (10/09/2022 9:06 AM CDT) HCV Ab Non Reactive Non Reactive 10/11/2022 12:08 PM CDT [facility] Blood BLOOD SPECIMEN / Unknown Venipuncture / Unknown 10/09/2022 9:06 AM CDT 10/09/2022 9:06 AM CDT Narrative [facility] - 10/11/2022 12:08 PM CDT Performed at: ??01 - [facility] Agent [address] [place] [address] ??[id number] Psychiatric Lpn: Zane Rebolledo MD, Phone: ??[phone] Radha Edouard MD LABORATORY [facility] ([facility]) [address] [place] [address], * CT CHEST ABDOMEN PELVIS W (09/19/2022 [...] - 199 mg/dL 09/09/2022 12:53 PM CDT [facility] TRIGLYCERIDES 77 <150 mg/dL 09/09/2022 12:53 PM CDT [facility] HDL CHOLESTEROL 34(L) >40 mg/dL 12:53 PM CDT [facility] NON-HDL CHOLESTEROL 115 <145 mg/dl 09/09/2022 12:53 PM T [facility] CHOL/HDL RATIO 4.38 <4.50 09/09/2022 12:53 PM CDT [facility] LDL CHOLESTEROL 100 <=130 mg/dL 09/09/2022 12:53 PM T [facility] VLDL CHOLESTEROL 15 <=30 mg/dL 09/09/2022 12:53 PM T [facility] PROVIDER ORDERED STATUS RANDOM 09/09/2022 12:53 PM T [facility] Blood BLOOD SPECIMEN / Unknown Butterfly / Unknown 09/09/2022 12:06 PM CDT 09/09/2022 12:07 PM CDT David Ambrocio MD CHEMISTRY [facility] [address] [place] [address] from Last 3 Months or Most Recently [...] Status Discussion: Reviewed Preferences wit Care Teams Home Health Billing Specialist Relationship Specialty Start Date End Date David Ambrocio MD [address] [place] [address] PCP - General Family Practice 11/27/22 Elvira Morin RN [address] [place] [address] Nurse Navigator - Oncology Registered Nurse 10/18/22 Radha Edouard MD [address] [place] [address] Medical Oncologist Hematology and Oncology 11/21/22 Lizeth Alarcon NP [address] [place] [address] Nurse Practitioner Hematology and Oncology 11/21/22 Segundo, KYUNG Hong [address] [place] [address] Pot Holder Binder 01/06/[address] [address] 01/21/23
== END 2023-12-30 14:44 | disposition home or self-care (01) ==
LOC: WOUND 14:44
PROVIDERS: PCP Internal Medicine; Visit Provider Nurse Practitioner Family
DX: I87.311 Chronic venous hypertension (idiopathic) with ulcer of right lower extremity (principal); L97.212 Non-pressure chronic ulcer of right calf with fat layer exposed; D64.9 Anemia, unspecified
CPT/HCPCS: 11042; 11045

== ENCOUNTER 2024-01-06 14:36 | Outpatient (CLI) | payer MEDICARE, BC, SELFPAY ==
--- OUTSIDE RECORDS SUMMARY | 2024-01-06 14:41 | XMS_ITS | Clinical Summary ---
Author Organization [facility] Address [place], [place] [address] Care Team Providers Care Cut Off Saw Operator Metal Name Role Phone CarleneElvira james Stefano RN Unavailable Radha Edouard MD Unavailable [phone] Lizeth Alarcon ESCAPEMENT MAKER Unavailable David Ambrocio MD Primary Care Provider Jaylon RaymondW Unavailable [phone] [facility] Allergies Active Allergy Reactions [...] Encounters Date Type Department Care Team Description 01/02/2024 Orders Only [facility] [address] [place] [address] Lizeth Alarcon, ESCAPEMENT MAKER <No scans attached> 12/31/2023 8:55 AM CDT - 12/31/2023 11:59 PM CDT Hospital Encounter 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) 12/15/2023 Telephone [facility] [address] [address] Lizeth Alarcon, ESCAPEMENT MAKER Appointment 12/15/2023 Travel 12/05/2023 Lab Requisition [facility] [phone] Unknown, Doctor 11/19/2023 11:15 AM CDT Office Visit [facility] [address] [address] Lizeth Alarcon, ESCAPEMENT MAKER Follow Up (Pancytopenia (HC) [D61.818]//) 11/19/2023 Travel 11/19/2023 Telephone [facility] [address] [address] Lizeth Alarcon, ESCAPEMENT MAKER Appointment 11/12/2023 8:50 AM CDT - 11/12/2023 11:59 PM CDT Hospital Encounter [facility] [address] [address] Pancytopenia (HC) [D61.818] 11/12/2023 Travel 10/28/2023 Orders Only [facility] Scanner 1 scan: (1-Ord) INCOMING RECORDS-CT, [facility], 10/28/2023 10/28/2023 Orders Only [facility] Scanner 1 scan: (1-Ord) INCOMING RECORDS-LABS, [facility], 10/28/2023 10/28/2023 Orders Only [facility] Scanner 1 scan: (1-Ord) INCOMING RECORDS-LABS, [facility], 10/28/2023 10/27/2023 Telephone [facility] [address] [address] [facility] Cancer Referral (AML) from Last 3 [...] Care Team (Late st Contact Info) Description 01/12/2024 1:[address] 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) PLATELET ESTIMATE Timed 12/31/2023 9:0 3 AM CDT 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) MANUAL DIFFERENTIAL Timed 12/31/2023 9 :03 AM CDT 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) CBC WITH AUTO DIFFERENTIAL Timed 12/31/2023 9:03 AM CDT 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) CBC WITH AUTO DIFFERENTIAL Today 12/31/2023 9:03 AM CDT 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) TRANSFUSE RBC (NURSE COMMUNICATION ORDER) [facility] 12/17/2023 8:57 AM CDT 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 PATH COMMENT Reviewed by KT on 01/01/2024 01/01/2024 2:08 PM CDT [facility] Blood BLOOD SPECIMEN / Unknown Venipuncture / Unknown 12/31/2023 9:03 AM CDT 12/31/2023 9:06 AM CDT Narrative [facility] - 01/01/2024 2:08 PM CDT This procedure was originally ordered at [facility]. This procedure was originally ordered at [facility]. This procedure was originally ordered at [facility]. Lizeth Alarcon NP LABORATORY [facility] [address] [place] [address], * (ABNORMAL) CBC WITH AUTO DIFFERENTIAL (12/31/2023 9:03 AM CDT) Only the most recent of3 resultswithin the time period is included. WHITE BLOOD COUNT 3.8(L) 4.5 - 11.0 thou/cu mm 12/31/2023 9:53 AM [facility] RED BLOOD COUNT 3.66(L) 4.30 - 5.90 mil/cu mm 12/31/2023 9:53 AM [facility] HEMOGLOBIN 8.0(L) 13.5 - 17.5 g/dL 12/31/2023 9:53 AM [facility] HEMATOCRIT 28.6(L) 37.0 - 53.0 % 12/31/2023 9:53 AM [facility] MCV 78(L) 80 - 100 fL 12/31/2023 9:53 AM [facility] MCH 21.9(L) 26.0 - 34.0 pg 12/31/2023 9:53 AM [facility] MCHC 28.0(L) 32.0 - 36.0 g/dL 12/31/2023 9:53 AM [facility] RDW 21.8(H) 11.5 - 15.5 % 12/31/2023 9:53 AM [facility] PLATELET COUNT 291 140 - 440 thou/cu mm 12/31/2023 9:53 AM [facility] MPV 12/31/2023 9:53 AM [facility] Comment:Unable to be determi amada Blood BLOOD SPECIMEN / Unknown Venipuncture / Unknown 12/31/2023 9:03 AM CDT 12/31/2023 9:06 AM [facility] LABORATORY - 12/31/2023 9:53 AM CDT This procedure was originally ordered at [facility]. This procedure was originally ordered at [facility]. This procedure was originally ordered at [facility]. Lizeth Alarcon NP HEMATOLOGY Performing Organization Address [facility]/ZIP Co de Phone Number [facility] [address] [place] [address] * (ABNORMAL) RED CELL MORPHOLOGY (12/31/2023 9:03 AM CDT) Only the most recent of3 resultswithin the time period is included. ELLIPTOCYTES Few 12/31/2023 9:[address] [facility] POLYCHROMASIA Slight 12/31/2023 9:[address] [facility] SCHISTOCYTES Few 12/31/2023 9:[address] [facility] TEARDROP CELLS Few 12/31/2023 9:[address] [facility] RBC COMMENT Present(A) RBC morphology appears normal, RBC morphology within normal limits for newborns. 12/31/2023 9:[address] [facility] Blood BLOOD SPECIMEN / Unknown Venipuncture / Unknown 12/31/2023 9:03 AM CDT 12/31/2023 9:06 AM CDT [facility] LAB[facility] - 12/31/2023 9:53 AM CDT This procedure was originally ordered at [facility]. This procedure was originally ordered at [facility]. This procedure was originally ordered at [facility]. Lizeth Alarcon NP HEMATOLOGY Performing Organization Address [facility]/ZIP Co de Phone Number [facility] [address] [place] [address] * PLATELET ESTIMATE (12/31/2023 9:03 AM CDT) Only the most recent of3 resultswithin the time period is included. PLATELET ESTIMATE Adequate Adequate, No estimate 12/31/2023 9:53 AM [facility] Blood BLOOD SPECIMEN / Unknown Venipuncture / Unknown 12/31/2023 9:03 AM CDT 12/31/2023 9:06 AM T [facility] LABORATORY - 12/31/2023 9:53 AM CDT This procedure was originally ordered at [facility]. This procedure was originally ordered at [facility]. This procedure was originally ordered at [facility]. Lizeth Alarcon NP HEMATOLOGY [facility] [address] [place] [address] * (ABNORMAL) MANUAL DIFFERENTIAL (12/31/2023 9:03 AM CDT) Only the most recent of3 resultswithin the time period is included. % NEUTROPHILS 45.0 % 12/31/2023 9:53 AM [facility] % LYMPHOCYTES 34.0 % 12/31/2023 9:53 AM [facility] % MONOCYTES 17.0 % 12/31/2023 9:53 AM [facility] % EOSINOPHILS 0.0 % 12/31/2023 9:53 AM [facility] % BASOPHILS 0.0 % 12/31/2023 9:53 AM [facility] % METAMYELOCYTES 4.0(H) <0.1 % 12/31/19 9:53 AM [facility] NEUTROPHILS ABSOLUTE 1.7 1.7 - 7.0 thou/cu mm 12/31/2023 9:53 AM [facility] LYMPHOCYTES ABSOLUTE 1.3 0.9 - 2.9 thou/cu mm 12/31/2023 9:53 AM [facility] MONOCYTES ABSOLUTE 0.6 <0.9 thou/cu mm 12/31/2023 9:53 AM [facility] EOSINOPHILS ABSOLUTE 0.0 <0.5 thou/cu mm 12/31/2023 9:53 AM [facility] BASOPHILS ABSOLUTE 0.0 <0.3 thou/cu mm 12/31/2023 9:[address] [facility] ABSOLUTE METAMYELOCYTES 0.2(H) <=0.0 thou/cu mm 12/31/2023 9:[address] [facility] ABS NRBC 0.1 thou /cu mm 12/31/2023 9:[address] [facility] MANUAL NRBC PER 100 CELLS 3.0 /100 CELLS 12/31/2023 9:[address] [facility] Blood BLOOD SPECIMEN / Unknown Venipuncture / Unknown 12/31/2023 9:03 AM CDT 12/31/2023 9:[address] [facility] - 12/31/2023 9:53 AM CDT This procedure was originally ordered at [facility]. This procedure was originally ordered at [facility]. This procedure was originally ordered at [facility]. Lizeth Alarcon NP HEMATOLOGY Performing Organization Address City/[facility]/ZIP Co de Phone Number [facility] [address] [place] [address] * BLOOD BANK EXTRA LAVENDER TOP (12/31/2023 9:03 AM CDT) Blood BLOOD SPECIMEN / Unknown Venipuncture / Unknown 12/31/2023 9:03 AM CDT 12/31/2023 9:07 AM CDT Doctor Unknown BLOOD BANK [facility] [address] [place] [address] * TRANSFUSE RBC (NURSE COMMUNICATION ORDER) (12/17/2023 11:09 AM CDT) Blood BLOOD SPECIMEN / Unknown Lizeth Alarcon NP NURSING BLOOD BANK * RBC W/O TYPE & SCREEN (12/17/2023 8:39 AM CDT) QUANTITY 1 12/17/2023 8:[address] [facility] BLOOD BANK Blood BLOOD SPECIMEN / Unknown 12/17/2023 8:30 AM CDT Lizeth Alarcon NP BLOOD BANK Performing Organization Address City/[facility]/ZIP Co de Phone Number [facility] BLOOD BANK [address] [place] [address] * RED BLOOD CELLS EA UNIT (12/15/2023 11:15 AM CDT) Pathologist [facility] CROSSMATCH Compatible Compatible [facility] BLOOD BANK PRODUCT BLOOD TYPE O Rh Negative [facility] BLOOD BANK PRODUCT ID NUMBER [id number] [facility] BLOOD BANK PRODUCT STATUS Transfused [facility] BLOOD BANK PRODUCT DESCRIPTION RBC -[address] [facility] BLOOD BANK PRODUCT CODE [id number] [facility] BLOOD BANK ISSUE DATE/TIME 12/17/23 08:52 [facility] BLOOD BANK Lizeth Alarcon NP BLOOD BANK Performing Organization Address [facility] Co de Phone Number [facility] BLOOD BANK [address] [place] [address] * TYPE & SCREEN (12/15/2023 11:13 AM CDT) Pathologist [facility] ABORH O Rh Negative 12/15/2023 1:[address] [facility] BLOOD BANK ANTIBODY SCREEN Negative Negative 12/15/2023 1:[address] [facility] BLOOD BANK SPECIMEN EXPIRATION DATE/TIME 12/18/23 23:59 12/15/2023 1:[address] [facility] BLOOD BANK Blood BLOOD SPECIMEN / Unknown Venipuncture / Unknown 12/15/2023 11:13 AM CDT 12/15/2023 11:20 AM CDT Lizeth Alarcon NP BLOOD BANK Performing Organization Address City/[facility]/ZIP Co de Phone Number [facility] BLOOD BANK [address] [place] [address] * (ABNORMAL) REFERRAL SUSCEPTIBILITY (12/02/2023 3:40 PM CDT) CULTURE RESULT(A) 12/08/2023 10:57 AM CDT [facility] LABORAT[facility]-CE NTRAL LABORATORY CULTURE Streptococcus group G 12/08/2023 10:57 AM CDT [facility] LABORATORY Comment:This isolate is pres [...] group G CLARITHROMYCIN R Doctor Unknown MICROBIOLOGY [facility] LAB[facility]-CEN[facility]AL LABORATORY [address] [place] [address], * PERIPHERAL BLD MORPHOLOGY (11/12/2023 8:56 AM CDT) Case Report Special Hematology Report ? Case: [id number] ? Authorizing Provider: ??Radha Edouard MD ?Collected: ? 11/12/2023 0856 ? Ordering Location: ? [facility] ? Received: ?11/12/2023 0857 ? [facility] ? Pathologist: ? Alfonso Ramesh, ? MD ? Specimen: ?Blood ? 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 6.5% BLASTS identified 2. 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 Moderate microcytic hypochromic anemia, suggestive of iron deficiency anemia 4. See comment 11/15/2023 1:55 PM CDT [facility] Comment Since the last described peripheral blood morphology performed with the bone marrow biopsy 09/25/2023 ([id number]), the blast count has remained essentially the [...] also reviewed by Mari Armijo MT, MS ([facility]). 11/15/2023 1:55 PM CDT [facility] Clinical Information The [...] ? 53 (L) 11/15/2023 1:55 PM CDT [facility] C[facility]TRAL LABORATORY CBC and Differential HEMATOLOGY PARAMETERS Tested at: ??[facility] ? RESULTS ??EXPECTED VALUES WBC: ? 3.1 ?4.5-64u9703/cumm ?DECREASED RBC: ? 3.49 ? 4.30-5.90 mil/cumm ??DECREASED HGB: ? 8.0 ?13.5-17.5 gm/di ? DECREASED HCT: ? 27.7 ? 37-53% ?DECREASED MCV: ? 79.0 ? 80-100 fl ? MICROCYTIC MCH: ? 22.9 ? 26-34 pg ?DECREASED MCHC: ?28.9 ? 32-36 gm/dl ? HYPOCHROMIC RDW: ? 22.3 ? 11.5-15.5% ?ELEVATED PLT: ? 357 ?[id number]/uL MPV: ? Unable to be determined ? [...] ??(0%) ? BLASTS 11/15/2023 1:55 PM CDT [facility] Reticulocytes Retic: 6.6 0.5-1.5% ELEVATED 11/15/2023 1:55 PM CDT [facility] Microscopic Description The final diagnosis is based on microscopic examination of an appropriately stained blood smear. 11/15/2023 1:55 PM CDT [facility] Additional Information Interpreted at [facility] [place] [facility] - [address], [place] [address] 11/15/2023 1:55 PM CDT [facility]- CENTRAL LABORATORY Blood BLOOD SPECIMEN / [...] originally ordered at [facility] [place] [facility]. Radha Edouard MD HEMATOLOGY Performing Organization Address City/State/[facility] Co de Phone Number [facility]-C[facility]AL LABORATORY [address] [place] [address], * (ABNORMAL) LD,TOTAL (11/12/2023 8:56 AM CDT) LD,TOTAL 411(H) 135 - 225 IU/L 11/12/2023 10:[address] [facility] Blood BLOOD SPECIMEN / Unknown Butterfly / Unknown 11/12/2023 8:56 AM CDT 11/12/2023 8:57 AM CDT Radha Edouard MD CHEMISTRY [facility] [address] [place] [address] * (ABNORMAL) RETICULOCYTES (11/12/2023 8:56 AM CDT) [facility] RETIC% 6.6(H) 0.5 - 1.5 % 11/12/2023 1:15 PM CDT [facility] RETIC (ABSOLUTE) 0.24(H) 0.03 - 0.08 mil/cu mm 11/12/2023 1:15 PM CDT [facility] Blood BLOOD SPECIMEN / Unknown Butterfly / Unknown 11/12/2023 8:56 AM CDT 11/12/2023 8:57 AM CDT Narrative [facility] - 11/12/2023 1:15 PM CDT This procedure was originally ordered at [facility]. Radha Edouard MD HEMATOLOGY Performing Organization Address City/[facility] Co de Phone Number [facility] [address] [place] [address], * (ABNORMAL) HEPATIC FUNCTION PANEL (11/12/2023 8:56 AM CDT) [facility] ALBUMIN 2.9(L) 4.0 - 4.9 g/dL 11/12/2023 9:[address] [facility] PROTEIN,TOTAL 10.2(H) 6.0 - 8.0 g/dL 11/12/2023 9:[address] [facility] BILIRUBIN,TOTAL 0.5 0.0 - 1.2 mg/dL 11/12/2023 9:[address] [facility] BILIRUBIN,DIRECT <0.2 0.0 - 0.3 mg/dL 11/12/2023 9:[address] [facility] BILIRUBIN,INDIRE CT 11/12/2023 9:[address] [facility] Comment:Unable to calculate, Direct Bili <0.2 ALK PHOSPHATASE 87 40 - 129 IU/L 11/12/2023 9:43 AM [facility] ALT (SGPT) <5(L) 10 - 50 IU/L 11/12/2023 9:43 AM [facility] AST (SGOT) 46 10 - 50 IU/L 11/12/2023 9:43 AM [facility] Blood BLOOD SPECIMEN / Unknown Butterfly / Unknown 11/12/2023 8:56 AM CDT 11/12/2023 8:57 AM CDT Radha Edouard MD CHEMISTRY [facility] [address] [place] [address] * (ABNORMAL) BASIC METABOLIC PANEL (11/12/2023 8:56 AM T) SODIUM 132(L) 136 - 145 mmol/L 11/12/2023 9:28 AM [facility] POTASSIUM 4.0 3.5 - 5.1 mmol/L 11/12/2023 9:28 AM [facility] CHLORIDE 101 98 - 107 mmol/L 11/12/2023 9:28 AM [facility] CO2,TOTAL 22 22 - 29 mmol/L 11/12/2023 9:28 AM [facility] ANION GAP 9 5 - 18 11/12/2023 9:28 AM [facility] GLUCOSE 98 70 - 99 mg/dL 11/12/2023 9:28 AM [facility] CALCIUM 8.1(L) 8.8 - 10.2 mg/dL 11/12/2023 9:28 AM [facility] BUN 17 8 - 23 mg/dL 11/12/2023 9:28 AM [facility] CREATININE 1.44(H) 0.70 - 1.20 mg/dL 11/12/2023 9:28 AM [facility] BUN/CREAT RATIO 12 10 - 20 9:28 AM [facility] eGFR 53(L) >90 mL/min/1.7 3m2 11/12/2023 9:[address] [facility] Comment:As of 2021, eG FR [...] 8:57 AM CDT Radha Edouard MD CHEMISTRY [facility] [address] [place], [place] [address] * SCAN CORRESP-LABORATORY RESULTS (10/28/2023 12:00 AM [...] 10/11/2022 12:08 PM CDT [facility] Blood BLOOD SPECIMEN / Unknown Venipuncture / Unknown 10/09/2022 9:06 AM CDT 10/09/2022 9:06 AM CDT N[facility]ative [facility] - 10/11/2022 12:08 PM CDT Performed at: ??01 - [facility] [address] [facility], [place], [place] ??[id number] Pantry Cook: Zane Rebolledo MD, Phone: ??[phone] Radha Edouard MD LABORATORY [facility] ([facility]) [address] [place] [address], [place] * CT CHEST ABDOMEN PELVIS W [...] - 199 mg/dL 09/09/2022 12:[address] [facility] TRIGLYCERIDES 77 <150 mg/dL 09/09/2022 12:[address] [facility] HDL CHOLESTEROL 34(L) >40 mg/dL 12:53 PM [facility] NON-HDL CHOLESTEROL 115 <145 mg/dl 09/09/2022 12:[address] [facility] CHOL/HDL RATIO 4.38 <4.50 09/09/2022 12:[address] [facility] LDL CHOLESTEROL 100 <=130 mg/dL 09/09/2022 12:[address] [facility] VLDL CHOLESTEROL 15 <=30 mg/dL 09/09/2022 12:[address] [facility] PROVIDER ORDERED STATUS RANDOM 09/09/2022 12:[address] [facility] Blood BLOOD SPECIMEN / Unknown Butterfly / Unknown 09/09/2022 12:06 PM CDT 09/09/2022 12:07 PM CDT David Ambrocio MD CHEMISTRY [facility] [address] [place] [address] from Last 3 Months or Most Recently [...] Discussion: Reviewed Preferences wit h Care Teams Cut Off Saw Operator Metal Relationship Specialty Start Date End Date David Ambrocio MD [address] [place] [address] PCP - General Family Practice 11/27/22 Elvira Morin, RN [address] [place] [address] Nurse Navigator - Oncology Registered Nurse 10/18/22 Radha Edouard MD [address] [place] [address] Medical Oncologist Hematology and Oncology 11/21/22 Lizeth Alarcon, ESCAPEMENT MAKER [address] [place] [address] Nurse Practitioner Hematology and Oncology 11/21/22 Segundo, KYUNG Hong [address] [place] [address] Cutter Banana Room 01/06/23 [facility] [address] [place] [address] 01/21/23
== END 2024-01-06 14:37 | disposition home or self-care (01) ==
LOC: WOUND 14:36
PROVIDERS: PCP Internal Medicine; Visit Provider Nurse Practitioner Family
DX: I87.311 Chronic venous hypertension (idiopathic) with ulcer of right lower extremity (principal); L97.212 Non-pressure chronic ulcer of right calf with fat layer exposed; D64.9 Anemia, unspecified; R00.0 Tachycardia, unspecified; R06.02 Shortness of breath; Z72.0 Tobacco use
CPT/HCPCS: 97602; G0463

== ENCOUNTER 2024-01-06 15:38 | Inpatient (IN) | payer MEDICARE, BC, SELFPAY ==
[2024-01-06] VITALS (19 sets, daily range): BP systolic 101–159; BP diastolic 51–90; PULSE 136–151; RESP 18–32; TEMP 36.4–36.9; O2SAT 94–99; BMI 26.9
--- NOTE | 2024-01-06 16:11 | ED_ITS ---
HPI - General Adult General Date Seen: 01/06/24 Chief complaint: Arrhythmia/Palpitations Stated complaint: High HR 140-150's, dizzy, SOB, low Bp, woundcare Time Seen by Provider: 01/06/24 16:11 History of Present Illness HPI narrative: 68 yo M with h/o AML (has declined chemotherapy and most workup. 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 He presents to the ER today with his . He was referred by the wound care center here in [place] because of tachycardia. Per he was 1st diagnosed with lab abnormalities over a year ago. It was concerning that he possibly had acute myelogenous leukemia at that time. It sounds like the doctors who found his abnormal labs recommended follow-up with Oncology and further workup, but the patient was initially reluctant and refused to go. Ultimately he did have a bone marrow biopsy that confirmed AML. He has declined any treatment with chemotherapy or bone marrow transplant. He has been treating [facility] [place] [facility] [place]. It sounds like because of his AML, he has had chronic anemia. He was getting worse and had a transfusion, done at the hospital in [place], about 3 or 4 weeks ago on December 16. Sounds like his hemoglobin pallor transfusion was 7.6 and then came up to the 8 after that. 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 He has been following with the [facility] for that. It sounds like they are doing dressing changes and debridements. No immediate amputation or other upper 9 intervention is planned. He had his routine wound check today. It does not sound like the wound is infected. It is a source for pain and he takes [place] to manage his pain at home. He was sent here by the wound clinic because he has tachycardia with heart rate of 140-150. Patient does not really feel any palpitations. He notes that last Friday he began to feel pretty short winded. He has been short of breath pretty much continuously since then. He is not feeling any palpitations. No chest pain. He does have a cough for the past few weeks that is productive of creamy sputum. No fevers. He has been short of breath since last week. They have noticed an elevated heart resting heart rate typically in the 140s. Sounds like his normal heart rate is in the 80s. He has been resistant to coming to the doctor but since he has been getting a little bit more short winded as the days go by, he finally agreed to come today after his providers from the wound clinic insisted. He also has a history of hypertension diagnosed a couple of decades ago for which he has been refusing any treatment. His blood pressure today is actually lower than his normal baseline blood pressure. Related Data Previous Rx's ?Medication ?Instructions ?Recorded hydrocodone 5 mg-acetaminophen 325 1 tab PO TID PRN pain #30 tabs 01/05/24 mg tablet Allergies Allergy/AdvReac Type Severity Reaction Status Date / Time No Known Drug Allergies Allergy Verified 01/06/24 15:54 [facility] Medical History (Updated 01/06/24 @ 21:06 by Rodney Anne MD) Heart failure ?I50.9 - Heart failure, unspecified (ICD-10) Atrial flutter with rapid ventricular response ?I48.92 - Unspecified atrial flutter (ICD-10) COPD (chronic obstructive pulmonary disease) ?J44.9 - Chronic obstructive pulmonary disease, unspecified (ICD-10) AML (acute myelogenous leukemia) ?C92.00 - Acute myeloblastic leukemia, not having achieved remission (ICD-10) Anemia ?D64.9 - Anemia, unspecified (ICD-10) Cough ?R05.9 - Cough, unspecified (ICD-10) Surgical History Status post debridement ?Z98.890 - Other specified postprocedural states (ICD-10) Social History (Updated 01/06/24 @ 20:55 by Chung Jack MD) Narrative: He lives in [place] with his and 2 adult children. is healthcare power of workers compensation attorney. Code status is full. Long-time smoker having quit for days ago. Quit using alcohol and recreational drugs in 1985. 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 What is your current living situation?: I presently have a place to live Problems where you live: no known problems In the past 12 months, utilities in danger of being shut off: no In past 12 months, lack of transportation kept you from medical appts, meetings, work, or getting things needed for daily living: no In the past 12 mos, have been you worried that your food would run out before you had money to buy more?: never true In the past 12 mos, the food you bought just didn't last and you didn't have money to buy more?: never true Smoking Status: Current every day smoker What tobacco products do you use: cigarettes How often do you have a drink containing alcohol: never AUDIT-C Alcohol total score: 0 Non-prescribed substance use: denies use Caffeine: Yes How often does anyone, including family, friends and others, physically hurt you : never How often does anyone, including family, friends and others, insult or talk down to you: never How often does anyone, including family, friends and others, threaten you with harm: never How often does anyone, including family, friends and others, scream or curse at you: never Exam Narrative: Exam Narrative: Constitutional: Appears well-developed . Thank you looks chronically ill. Somewhat saldana appearing. Alert. Conversant. Non toxic. provides all of his history HENT: Head: Atraumatic. Nose: Nose normal. Mouth/Throat: Oral mucosa is clear and moist. no trismus. Pharynx normal. Tonsils symmetric. No tonsillar enlargement, erythema, or exudate. Eyes: Conjunctivae normal. EOM normal. Pupils equal, round, and reactive to light. No scleral icterus. Neck: Normal range of motion. Neck supple. No tracheal deviation present. No JVD Cardiovascular: Tachycardic, 146 with atrial flutter and 2:1 conduction on the monitor, regular rhythm. No gallop. No friction rub. No murmur heard. Symmetric radial artery pulses Pulmonary/Chest: Effort normal. No stridor. No respiratory distress. No wheezes. No rales. No rhonchi . No tenderness. Abdominal: Soft. Bowel sounds normal. No distension. No mass. No tenderness. No rebound. No guarding. Musculoskeletal: RUE: Normal range of motion. No tenderness. No deformity LUE: Normal range of motion. No tenderness. No deformity RLE: Normal range of motion. Trace edema in the right leg. He has a chronic large wound on the right calf with a dressing in place. I did not remove the dressing for exam because he had just been exam and the wound care clinic today. LLE: Normal range of motion. No edema. No tenderness. No deformity Neurological: Alert and oriented to person, place, and time. Normal strength. CN II-VII intact. No sensory deficit. GCS eye subscore is 4. GCS verbal subscore is 5. GCS motor subscore is 6. Normal coordination Skin: Skin is warm and dry. No rash noted. No pallor. Normal capillary refill. Psychiatric: Normal mood. Normal affect. Const: Vital Signs, click to edit/add: Vital Signs - 24 hr 01/06/24 15:48 01/06/24 17:19 01/06/24 17:20 Temperature 97.5 F L Pulse Rate 148 H 149 H Pulse Rate [Pulse Oximeter] 146 H Respiratory Rate 20 Blood Pressure 132/88 Blood Pressure [Ri ght Upper Arm] 138/90 H Pulse Oximetry 97 96 95 Oxygen Delivery Me thod Room Air 01/06/24 17:21 01/06/24 18:00 01/06/24 18:01 Temperature Pulse Rate 148 H 151 H 147 H Pulse Rate [Pulse Oximeter] Respiratory Rate Blood Pressure 126/85 Blood Pressure [Ri ght Upper Arm] Pulse Oximetry 94 94 95 Oxygen Delivery Me thod 01/06/24 18:02 01/06/24 18:57 01/06/24 18:58 Temperature Pulse Rate 147 H 146 H 146 H Pulse Rate [Pulse Oximeter] Respiratory Rate Blood Pressure 101/78 Blood Pressure [Ri ght Upper Arm] Pulse Oximetry 97 95 97 Oxygen Delivery Me thod 01/06/24 19:00 01/06/24 19:01 01/06/24 19:02 Temperature Pulse Rate 145 H 147 H 145 H Pulse Rate [Pulse Oximeter] Respiratory Rate Blood Pressure 109/78 Blood Pressure [Ri ght Upper Arm] Pulse Oximetry 98 99 99 Oxygen Delivery Me thod 01/06/24 19:33 Temperature Pulse Rate 147 H Pulse Rate [Pulse Oximeter] Respiratory Rate Blood Pressure 113/73 Blood Pressure [Ri ght Upper Arm] Pulse Oximetry 94 Oxygen Delivery Me thod Course Vital Signs Vital signs: Initial Vital Signs Temperature 97.5 F L 01/06/24 15:48 Temperature Source Temporal Artery Scan 01/06/24 15:48 Pulse Rate 146 H 01/06/24 15:48 Respiratory Rate 20 01/06/24 15:48 Blood Pressure 138/90 H 01/06/24 15:48 Blood Pressure Mean 106 H 01/06/24 15:48 Blood Pressure Position Sitting 01/06/24 15:48 Pulse Oximetry 97 01/06/24 15:48 Oxygen Delivery Method Room Air 01/06/24 15:48 Vital Signs Temperature 97.5 F L 01/06/24 15:48 Pulse Rate 146 H 01/06/24 15:48 Respiratory Rate 20 01/06/24 15:48 Blood Pressure 138/90 H 01/06/24 15:48 Pulse Oximetry 97 01/06/24 15:48 Oxygen Delivery Method Room Air 01/06/24 15:48 Temperature 97.5 F L 01/06/24 15:48 Pulse Rate 147 H 01/06/24 19:33 Respiratory Rate 20 01/06/24 15:48 Blood Pressure 113/73 01/06/24 19:33 Pulse Oximetry 94 01/06/24 19:33 Oxygen Delivery Method Room Air 01/06/24 15:48 Medications Administered Medications: Generic Name Dose Route Start Last Admin Trade Name Freq PRN Reason Stop Dose Admin Sodium Chloride 5 ml 01/06/24 21:00 01/06/24 20:55 Sodium Chloride 0.9 % (Flush) 10 Ml Syringe IVF 5 ml BID VENUS Administration Discontinued Medications Generic Name Dose Route Start Last Admin Trade Name Freq PRN Reason Stop Dose Admin Digoxin 500 mcg 01/06/24 20:23 01/06/24 20:54 Digoxin 250 Mcg/Ml Inj IV 01/06/24 20:24 500 mcg ONCE ONE Administration Diltiazem HCl 10 mg 01/06/24 16:51 01/06/24 17:22 Diltiazem 5 Mg/Ml Inj IVP 01/06/24 16:52 10 mg ONCE ONE Administration Diltiazem HCl 20 mg 01/06/24 17:25 01/06/24 17:36 Diltiazem 5 Mg/Ml Inj IVP 01/06/24 17:26 20 mg ONCE ONE Administration Diltiazem HCl 20 mg 01/06/24 18:18 01/06/24 18:32 Diltiazem 5 Mg/Ml Inj IVP 01/06/24 18:19 20 mg ONCE ONE Administration Furosemide 40 mg 01/06/24 20:24 01/06/24 20:54 Furosemide 10 Mg/Ml Inj IVP 01/06/24 20:25 40 mg ONCE ONE Administration Sodium Chloride 1,000 mls @ 1,000 mls/hr 01/06/24 17:00 01/06/24 18:37 0.9 % Sodium Chloride 1000 Ml IV 01/06/24 17:59 Infused .Q1H VENUS Infusion Metoprolol Tartrate 5 mg 01/06/24 18:35 01/06/24 18:57 Metoprolol Tartrate 1 Mg/Ml Inj IVP 01/06/24 18:36 5 mg ONCE ONE Administration Metoprolol Tartrate 100 mg 01/06/24 18:44 01/06/24 19:10 Metoprolol Tartrate 100 Mg Tablet PO 01/06/24 18:45 100 mg ONCE ONE Administration Potassium Bicarbonate 25 meq 01/06/24 20:25 01/06/24 20:55 Potassium Bicarb 25 Meq Effervescent Tab PO 01/06/24 20:26 25 meq ONCE ONE Administration Medical Decision Making MDM Narrative Medical decision making narrative: 68-year-old gentleman with history of untreated AML, COPD, anemia, chronic nonhealing wound on his right calf, sent to the ER today from the wound clinic for tachycardia. He has had an elevated heart rate and shortness of breath since last Friday, 8 days ago. He has no history of other arrhythmia that he knows of. Suspect he probably would and a flutter last week. He has been refusing to come to the doctor so far which is why he has waited 8 days for this evaluation. With atrial flutter and tachycardia, I do think he needs rate control. Would not be a good candidate for immediate cardioversion now due to risk of stroke given presumed duration of his arrhythmia. Discussed this with the patient and his and they understand and agree. Treatment for this patient is somewhat difficult because he is highly resistant to most of the recommendations from his physicians and is generally resistant to Western medicine as a whole. He is somewhat frightened of getting any medicine for his heart and is not sure he would even want to take pills for his heart if we were able to get it better and be able to send him home. Ultimately, after discussing the physiology of atrial flutter and the potential for tachycardia induced cardiomyopathy and potential for worsening CHF as time goes on, he does agree to treatment. Will out for rate control initially. Started with low dose of diltiazem 10 mg IV. No real change in his heart rate. No decrease in his blood pressure. Second dose 20 mg IV had no effect on his heart rate. Third dose had no effect. Consult with Cardiology from [facility], Dr. Macedo. He would recommend switching to beta-blockers. We ordered 5 mg metoprolol IV and Cardi ology also suggest 100 mg metoprolol p.o.. With this, if med metoprolol alone ineffective, continue beta-gianna and digoxin for additional rate control. Cardiology also suggest that we get a echocardiogram while the patient is in the hospital. Chest x-ray shows possible mild basilar consolidation suggestive of CHF by my read. Radiology interpretation suggest either atelectasis or developing i nfection. He has no hypoxia. He has had a recent cough. COVID PCR negative. Influenza PCR negative. Chest x-ray shows bibasilar infiltrates and possible small pleural effusions. I feel that this could represent possible mild CHF although radiology feels that the x- ray shows either atelectasis or possibly early infection. He does not have a fever. Some purulent sputum. Discussed and reviewed the x-ray with in person with our hospitalist who requests that we hold off on antibiotics for now.. Laboratory workup shows chronic leukopenia with a white count of 3.8. Chronic anemia with a hemoglobin of 7.4. This is down about a g compared to his baseline. It sounds like he was at this level few weeks ago when he required a transfusion bring him up into the 8 range. Platelet count is 218. Urinalysis normal. Creatinine mildly abnormal at 1.7. Previous baseline was 1.0 in September. He received a 1 L IV fluid bolus. He received boluses of diltiazem 10 mg, 20 mg, 20 mg, without change in his heart rate or rhythm. We then administered metoprolol 5 mg IV without change. Discussed with Cardiology, Dr. Macedo who is covering call for [facility] in [facility] [place]. He would also suggest adding oral metoprolol 100 mg of the short-acting metoprolol tartrate which may be more effective than the IV in this case. Also if he is not improving his heart rate with that could at oral digoxin. Cardiology definitely agrees with hospitalization and feels that the patient would be appropriate to hospitalized here at [place] for rate control. Cardiology also recommends echocardiogram. Discussed with our hospitalist, Dr. Jack, who agrees to admit. Discussed the plan of care with the patient and his . Patient is extremely reluctant to be admitted but his is insistent. Ultimately he agrees. Lab Data Labs: Lab Results 01/06/24 01/06/24 01/06/24 Range/Units 16:00 16:50 16:52 WBC 3.87 L (4.50-11.00) K/uL RBC 3.34 L (4.30-5.90) m/uL Hgb 7.4 L* (13.5-17.5) gm/dL Hct 25.9 L (37.0-53.0) % MCV 78 L (80-100) fL MCH 22 L (26-34) pg MCHC 29 L (32-36) gm/dL RDW Coeff of [place] 21.4 H (11.5-15.5) % Plt Count 218 (140-440) K/uL Neut % (Auto) 31.5 L (42.0-72.0) % Lymph % (Auto) 34.1 (20-44) % [place] % (Auto) 30.7 H (0.0-11.0) % Eos % (Auto) 0.3 (0.0-7.0) % Baso % (Auto) 2.1 (0.0-3.0) % Neut # (Auto) 1.20 L (1.7-7.0) K/uL Lymph # (Auto) 1.30 (0.90-2.90) K/uL [place] # (Auto) 1.20 H (0.00-0.90) K/UL Eos # (Auto) 0.00 (0.00-0.50) K/uL Baso # (Auto) 0.10 (0.00-0.30) K/uL Abs Immat Gran (auto) 0.10 (0.00-0.30) K/uL Imm/Tot Granulo (auto) 1.3 % Diff Slide Review Acceptable Review (Acceptable) Sodium 133 L (135-149) mmol/L Potassium 4.1 (3.6-5.1) mmol/L Chloride 105 (96-114) mmol/L Carbon Dioxide 19 L (20-32) mmol/L Anion Gap 9 (7-15) mEq/L BUN 21 (7-30) mg/dL Creatinine 1.7 H (0.5-1.5) mg/dL Estimated GFR 43 ml/min Glucose 99 (60-115) mg/dL Lactate 1.8 (0.5-1.9) mmol/L Calcium 8.3 L (8.4-10.6) mg/dL Magnesium 2.2 (1.5-2.6) mg/dL Troponin I < 0.01 L (0.01-0.04) ng/mL NT-Pro-B Natriuret Pep 5350 pg/mL TSH 16.400 H (0.270-4.200) uIU/mL Free T4 1.40 (0.70-1.85) ng/dL Urine Color Yellow (Yellow) Urine Appearance Clear (Clear) Urine pH 5.5 (5.0-8.5) Ur Specific [place] <= 1.005 (1.000-1.030) Urine Protein Negative (Negative) Urine Glucose (UA) Negative (Negative) Urine Ketones Negative (Negative) Urine Blood Negative (Negative) Urine Nitrite Negative (Negative) Urine Bilirubin Negative (Negative) Urine Urobilinogen 0.2 (0.2-1.0) Ur Leukocyte Esterase Negative (Negative) Urine RBC 0-2 (0-2) Urine WBC 0-2 (0-5) Ur Squamous Epith Cells None (None-Few) Urine Bacteria Few A (None) SARS-CoV-2 (PCR) Negative SARS-CoV-2 (Negative) Influenza Type A (PCR) Negative PCR FLU A (Negative) Influenza Type B (PCR) Negative PCR FLU B (Negative) Imaging Data Chest x-ray: Attestation: I have reviewed the pertinent imaging results. My impression: Bibasilar opacities suspect possible CHF, Dr. Anne. Radiologist's impression: Impression: Moderate patchy bibasilar opacities may represent atelectasis given small bilateral pleural effusions or represent developing infection. ECG Data Attestation: I personally reviewed and interpreted this ECG as follows: Interpretation: EKG 1606 Atrial Flutter with 2:1 conduction Rate 146 QRS axis normal. No ST segement elev or dep QT 410 QTc 408 no prior for comparison Critical Care Time Critical Care Time Critical Care Time: Yes Attestation: The patient required my highest level preparedness to intervene emergently and I personally spent this critical care time directly and personally managing the patient. This critical care time included: Obtaining a history; Examining the patient; Pulse oximetry; Ordering and reviewing of studies; Arranging urgent treatment with development of a management plan; Evaluation of patients response to treatment; Frequent reassessment discussions with other providers. This critical care time was performed to assess and manage the high probability of imminent life-threatening deterioration that could result in multiorgan failure. It was exclusive of separate billable procedures and treating other patients and teaching time. Total Critical Care Time in Minutes: 40 Discharge Plan Discharge Clinical Impression: Atrial flutter, Anemia, AML (acute myeloid leukemia), Acute dyspnea
[2024-01-06 16:21] LABS: Appearance Urine Clear (Clear); Bilirubin Urine Negative (Negative); Blood Urine Negative (Negative); Color Urine Yellow (Yellow); Glucose Urine Negative (Negative); Ketones Urine Negative (Negative); Leukocyte Esterase Urine Negative (Negative); Nitrite Urine Negative (Negative); Protein Urine Negative (Negative); Specific Gravity Urine <= 1.005 (1.000-1.030); Urobilinogen Urine 0.2 (0.2-1.0); pH Urine 5.5 (5.0-8.5)
[2024-01-06 16:33] LABS: Bacteria Urine Few; RBC Urine 0-2 (0-2); WBC Urine 0-2 (0-5)
--- NOTE | 2024-01-06 16:51 | CRLHL7_ITS ---
For Patients: As a result of the Cures Act, medical imaging exams and procedure reports are released immediately into your electronic medical record. You may view this report before your referring provider. If you have questions, please contact your health care provider. Indication: FLUTTER, DYSPNEA Technique: PA and lateral views of the chest. Comparison: None. Findings: Low lung volumes. Normal cardiomediastinal silhouette. Moderate patchy bibasilar opacities. Small bilateral pleural effusions. No visualized pneumothorax. Moderate degenerative changes of the visualized spine. Impression: Moderate patchy bibasilar opacities may represent atelectasis given small bilateral pleural effusions or represent developing infection. Dictated by Thomas Pak MD @ 01/06/2024 5:36:50 PM (Electronically Signed)
[2024-01-06 17:01] LABS: Lactate* 1.8 mmol/L (0.5-1.9)
[2024-01-06 17:07] LABS: Basophils Percent Auto 2.1 % (0.0-3.0); Eosinophils Percent Auto 0.3 % (0.0-7.0); Hematocrit 25.9 % (37.0-53.0); Immature Granulocytes Pct Auto 1.3 %; Lymphocytes Percent Auto 34.1 % (20-44); Mean Corpuscular HGB Conc 29 gm/dL (32-36); Mean Corpuscular Hemoglobin 22 pg (26-34); Mean Corpuscular Volume 78 fL (80-100); Monocytes Percent Auto 30.7 % (0.0-11.0); Neutrophils Percent Auto 31.5 % (42.0-72.0); Platelet Count* 218 K/uL (140-440); RDW Coefficient of Variation % 21.4 % (11.5-15.5); Red Blood Count 3.34 m/uL (4.30-5.90); White Blood Count* 3.87 K/uL (4.50-11.00)
[2024-01-06 17:18] LABS: Hemoglobin* 7.4 gm/dL (13.5-17.5); Slide Review Reflex Yes
[2024-01-06] MEDS: dilTIAZem 5 MG/ML inj 10 MG IVP (17:22)
[2024-01-06] MEDS: 0.9 % SODIUM CHLORIDE 1000 ml 1,000 ML IV (17:22)
[2024-01-06 17:26] LABS: Chloride* 105 mmol/L (96-114); Potassium* 4.1 mmol/L (3.6-5.1); Sodium* 133 mmol/L (135-149)
[2024-01-06 17:28] LABS: Creatinine* 1.7 mg/dL (0.5-1.5); Estimated Glomerular Filt Rate 43 ml/min; Magnesium* 2.2 mg/dL (1.5-2.6)
[2024-01-06 17:29] LABS: Anion Gap 9 mEq/L (7-15); Blood Urea Nitrogen* 21 mg/dL (7-30); Calcium* 8.3 mg/dL (8.4-10.6); Carbon Dioxide* 19 mmol/L (20-32); Glucose* 99 mg/dL (60-115)
[2024-01-06] MEDS: dilTIAZem 5 MG/ML inj 20 MG IVP ×2 (17:36→18:32)
[2024-01-06 17:53] LABS: NT Pro B Type NatriureticPept* 5350 pg/mL; Troponin I* < 0.01 ng/mL (0.01-0.04)
[2024-01-06 17:53] LABS: PCR FLU A Negative PCR FLU A (Negative); PCR FLU B Negative PCR FLU B (Negative); SARS PCR* Negative SARS-CoV-2 (Negative)
--- OUTSIDE RECORDS SUMMARY | 2024-01-06 17:55 | XMS_ITS | Clinical Summary ---
Author Organization [facility] Address [place], [place] [address] Care Team Providers Care Workforce Development Assistant Name Role Phone CarleneElvira james Stefano RN Unavailable Radha Edouard MD Unavailable Lizeth Alarcon PHOTOGRAPHY INSTRUCTOR Unavailable David Ambrocio MD Primary Care Provider Jaylon RaymondW Unavailable [phone] [facility] [phone] Allergies Active Allergy Reactions Criticality Noted Date [...] Department Care Team Description 01/02/2024 Orders Only [facility] [address] [place] [address] Lizeth Alarcon, PHOTOGRAPHY INSTRUCTOR <No scans attached> 12/31/2023 8:55 AM CDT - 12/31/2023 11:59 PM CDT Hospital Encounter 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) 12/15/2023 Telephone [facility] [address] [address] Lizeth Alarcon, PHOTOGRAPHY INSTRUCTOR Appointment 12/15/2023 Travel 12/05/2023 Lab Requisition [facility] [phone] Unknown, Doctor 11/19/2023 11:15 AM CDT Office Visit [facility] [address] [address] Lizeth Alarcon, PHOTOGRAPHY INSTRUCTOR Follow Up (Pancytopenia (HC) [D61.818]//) 11/19/2023 Travel 11/19/2023 Telephone [facility] [address] [address] Lizeth Alarcon, PHOTOGRAPHY INSTRUCTOR Appointment 11/12/2023 8:50 AM CDT - 11/12/2023 11:59 PM CDT Hospital Encounter [facility] [address] [address] Pancytopenia (HC) [D61.818] 11/12/2023 Travel 10/28/2023 Orders Only [facility] Scanner 1 scan: (1-Ord) INCOMING RECORDS-CT, [facility], 10/28/2023 10/28/2023 Orders Only [facility] Scanner 1 scan: (1-Ord) INCOMING RECORDS-LABS, [facility], 10/28/2023 10/28/2023 Orders Only [facility] Scanner 1 scan: (1-Ord) INCOMING RECORDS-LABS, [facility], 10/28/2023 10/27/2023 Telephone [facility] [address] [address] [facility] Cancer Referral (AML) from Last 3 Months [...] Description 01/12/2024 1:[address] 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 This procedure was originally ordered at [facility]. This procedure was originally ordered at [facility]. Lizeth Alarcon NP LABORATORY [facility] [address] [place] [address], * (ABNORMAL) CBC WITH AUTO DIFFERENTIAL (12/31/2023 9:03 AM CDT) Only the most recent of3 resultswithin the time period is included. WHITE BLOOD COUNT 3.8(L) 4.5 - 11.0 thou/cu mm 12/31/2023 9:53 AM [facility] RED BLOOD COUNT 3.66(L) 4.30 - 5.90 mil/cu mm 12/31/2023 9:53 AM [facility] HEMOGLOBIN 8.0(L) 13.5 - 17.5 g/dL 12/31/2023 9:53 AM [facility] HEMATOCRIT 28.6(L) 37.0 - 53.0 % 12/31/2023 9:53 AM [facility] MCV 78(L) 80 - 100 fL 12/31/2023 9:53 AM [facility] MCH 21.9(L) 26.0 - 34.0 pg 12/31/2023 9:53 AM [facility] MCHC 28.0(L) 32.0 - 36.0 g/dL 12/31/2023 9:53 AM [facility] RDW 21.8(H) 11.5 - 15.5 % 12/31/2023 9:53 AM [facility] PLATELET COUNT 291 140 - 440 thou/cu mm 12/31/2023 9:53 AM [facility] MPV 12/31/2023 9:53 AM [facility] Comment:Unable to be determi amada Blood BLOOD SPECIMEN / Unknown Venipuncture / Unknown 12/31/2023 9:03 AM CDT 12/31/2023 9:06 AM [facility] LABORATORY - 12/31/2023 9:53 AM CDT This procedure was originally ordered at [facility]. This procedure was originally ordered at [facility]. This procedure was originally ordered at [facility]. Lizeth Alarcon NP HEMATOLOGY Performing Organization Address [facility]/ZIP Co de Phone Number [facility] [address] [place] [address] * (ABNORMAL) RED CELL MORPHOLOGY (12/31/2023 9:03 AM CDT) Only the most recent of3 resultswithin the time period is included. ELLIPTOCYTES Few 12/31/2023 9:53 AM CDT [facility] POLYCHROMASIA Slight 12/31/2023 9:53 AM CDT [facility] SCHISTOCYTES Few 12/31/2023 9:53 AM CDT [facility] TEARDROP CELLS Few 12/31/2023 9:53 AM T [facility] RBC COMMENT Present(A) RBC morphology appears normal, RBC morphology within normal limits for newborns. 12/31/2023 9:53 AM CDT [facility] Blood BLOOD SPECIMEN / Unknown Venipuncture / Unknown 12/31/2023 9:03 AM CDT 12/31/2023 9:06 AM CDT [facility] LABORATORY - 12/31/2023 9:53 AM CDT This procedure was originally ordered at [facility]. This procedure was originally ordered at [facility]. This procedure was originally ordered at [facility]. Lizeth Alarcon NP HEMATOLOGY Performing Organization Address [facility]/ZIP Co de Phone Number [facility] [address] [place] [address] * PLATELET ESTIMATE (12/31/2023 9:03 AM CDT) Only the most recent of3 resultswithin the time period is included. PLATELET ESTIMATE Adequate Adequate, No estimate 12/31/2023 9:53 AM [facility] Blood BLOOD SPECIMEN / Unknown Venipuncture / Unknown 12/31/2023 9:03 AM CDT 12/31/2023 9:06 AM T [facility] LABORATORY - 12/31/2023 9:53 AM CDT This procedure was originally ordered at [facility]. This procedure was originally ordered at [facility]. This procedure was originally ordered at [facility]. Lizeth Alarcon NP HEMATOLOGY [facility] [address] [place] [address] * (ABNORMAL) MANUAL DIFFERENTIAL (12/31/2023 9:03 AM CDT) Only the most recent of3 resultswithin the time period is included. % NEUTROPHILS 45.0 % 12/31/2023 9:53 AM [facility] % LYMPHOCYTES 34.0 % 12/31/2023 9:53 AM [facility] % MONOCYTES 17.0 % 12/31/2023 9:53 AM [facility] % EOSINOPHILS 0.0 % 12/31/2023 9:53 AM [facility] % BASOPHILS 0.0 % 12/31/2023 9:53 AM [facility] % METAMYELOCYTES 4.0(H) <0.1 % 12/31/19 9:53 AM [facility] NEUTROPHILS ABSOLUTE 1.7 1.7 - 7.0 thou/cu mm 12/31/2023 9:53 AM [facility] LYMPHOCYTES ABSOLUTE 1.3 0.9 - 2.9 thou/cu mm 12/31/2023 9:53 AM [facility] MONOCYTES ABSOLUTE 0.6 <0.9 thou/cu mm 12/31/2023 9:53 AM [facility] EOSINOPHILS ABSOLUTE 0.0 <0.5 thou/cu mm 12/31/2023 9:53 AM [facility] BASOPHILS ABSOLUTE 0.0 <0.3 thou/cu mm 12/31/2023 9:53 AM CDT [facility] ABSOLUTE METAMYELOCYTES 0.2(H) <=0.0 thou/cu mm 12/31/2023 9:53 AM CDT [facility] ABS NRBC 0.1 thou /cu mm 12/31/2023 9:53 AM CDT [facility] MANUAL NRBC PER 100 CELLS 3.0 /100 CELLS 12/31/2023 9:53 AM CDT [facility] Blood BLOOD SPECIMEN / Unknown Venipuncture / Unknown 12/31/2023 9:03 AM CDT 12/31/2023 9:06 AM CDT Narrative [facility] - 12/31/2023 9:53 AM CDT This procedure was originally ordered at [facility]. This procedure was originally ordered at [facility]. This procedure was originally ordered at [facility]. Lizeth Alarcon NP HEMATOLOGY Performing Organization Address City/[facility]/ZIP Co de Phone Number [facility] [address] [place] [address] * BLOOD BANK EXTRA LAVENDER TOP (12/31/2023 9:03 AM CDT) Blood BLOOD SPECIMEN / Unknown Venipuncture / Unknown 12/31/2023 9:03 AM CDT 12/31/2023 9:07 AM CDT Doctor Unknown BLOOD BANK [facility] [address] [place] [address] * TRANSFUSE RBC (NURSE COMMUNICATION ORDER) (12/17/2023 11:09 AM CDT) Blood BLOOD SPECIMEN / Unknown Lizeth Alarcon NP NURSING BLOOD BANK * RBC W/O TYPE & SCREEN (12/17/2023 8:39 AM CDT) QUANTITY 1 12/17/2023 8:39 AM CDT [facility] BLOOD BANK Blood BLOOD SPECIMEN / Unknown 12/17/2023 8:30 AM CDT Lizeth Alarcon NP BLOOD BANK Performing Organization Address City/[facility]/ZIP Co de Phone Number [facility] BLOOD BANK [address] [place] [address] * RED BLOOD CELLS EA UNIT (12/15/2023 11:15 AM CDT) Pathologist [facility] CROSSMATCH Compatible Compatible [facility] BLOOD BANK PRODUCT BLOOD TYPE O Rh Negative [facility] BLOOD BANK PRODUCT ID NUMBER [id number] [facility] BLOOD BANK PRODUCT STATUS Transfused [facility] BLOOD BANK PRODUCT DESCRIPTION RBC -1 LR [facility] BLOOD BANK PRODUCT CODE [id number] [facility] BLOOD BANK ISSUE DATE/TIME 12/17/23 08:52 [facility] BLOOD BANK Lizeth Alarcon NP BLOOD BANK Performing Organization Address [facility] Co de Phone Number [facility] BLOOD BANK [address] [place] [address] * TYPE & SCREEN (12/15/2023 11:13 AM CDT) Pathologist [facility] ABORH O Rh Negative 12/15/2023 1:13 PM CDT [facility] BLOOD BANK ANTIBODY SCREEN Negative Negative 12/15/2023 1:13 PM CDT [facility] BLOOD BANK SPECIMEN EXPIRATION DATE/TIME 12/18/23 23:59 12/15/2023 1:13 PM CDT [facility] BLOOD BANK Blood BLOOD SPECIMEN / Unknown Venipuncture / Unknown 12/15/2023 11:13 AM CDT 12/15/2023 11:20 AM CDT Lizeth Alarcon NP BLOOD BANK Performing Organization Address City/[facility]/ZIP Co de Phone Number [facility] BLOOD BANK [address] [place] [address] * (ABNORMAL) REFERRAL SUSCEPTIBILITY (12/02/2023 3:40 PM CDT) CULTURE RESULT(A) 12/08/2023 10:57 AM CDT [facility] LAB[facility] CULTURE Streptococcus group G 12/08/2023 10:57 AM CDT [facility] Comment:This isolate is pres [...] group G CLARITHROMYCIN R Doctor Unknown MICROBIOLOGY [facility] [address] [place] [address], * PERIPHERAL BLD MORPHOLOGY (11/12/2023 8:56 AM CDT) Case Report Special Hematology Report ? Case: [id number] ? Authorizing Provider: ??Radha Edouard MD ?Collected: ? 11/12/2023 0856 ? Ordering Location: ? [facility] ? Received: ?11/12/2023 0857 ? [facility] ? Pathologist: ? Alfonso Ramesh, ? MD ? Specimen: ?Blood ? 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 6.5% BLASTS identified 2. 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 Moderate microcytic hypochromic anemia, suggestive of iron deficiency anemia 4. See comment 11/15/2023 1:55 PM CDT [facility] Comment Since the last described peripheral blood morphology performed with the bone marrow biopsy 09/25/2023 ([id number]), the blast count has remained essentially the [...] also reviewed by Mari Armijo MT, MS ([facility]). 11/15/2023 1:55 PM CDT [facility] Clinical Information The patient [...] 53 (L) 11/15/2023 1:55 PM CDT [facility] C[facility]AL LAB[facility]ATORY CBC and Differential HEMATOLOGY PARAMETERS Tested at: ??[facility] ? RESULTS ??EXPECTED VALUES WBC: ? 3.1 ?4.5-57k1738/cumm ?DECREASED RBC: ? 3.49 ? 4.30-5.90 mil/cumm ??DECREASED HGB: ? 8.0 ?13.5-17.5 gm/di ? DECREASED HCT: ? 27.7 ? 37-53% ?DECREASED MCV: ? 79.0 ? 80-100 fl ? MICROCYTIC MCH: ? 22.9 ? 26-34 pg ?DECREASED MCHC: ?28.9 ? 32-36 gm/dl ? HYPOCHROMIC RDW: ? 22.3 ? 11.5-15.5% ?ELEVATED PLT: ? 357 ?140-387c3005/uL MPV: ? Unable to be determined ? [...] ??(0%) ? BLASTS 11/15/2023 1:55 PM CDT [facility] Reticulocytes Retic: 6.6 0.5-1.5% ELEVATED 11/15/2023 1:55 PM CDT [facility] Microscopic Description The final diagnosis is based on microscopic examination of an appropriately stained blood smear. 11/15/2023 1:55 PM CDT [facility] Additional Information Interpreted at [facility] [place] [facility] - [address], [place] [address] 11/15/2023 1:55 PM CDT [facility]- [facility]AL LABORATORY Blood BLOOD SPECIMEN / [...] Rfl: This procedure was originally ordered at [facility]. Radha Edouard MD HEMATOLOGY Performing Organization Address City/State/[facility] Co de Phone Number [facility] [address] [place] [address], * (ABNORMAL) LD,TOTAL (11/12/2023 8:56 AM CDT) LD,TOTAL 411(H) 135 - 225 IU/L 11/12/2023 10:39 AM CDT [facility] Blood BLOOD SPECIMEN / Unknown Butterfly / Unknown 11/12/2023 8:56 AM CDT 11/12/2023 8:57 AM CDT Radha Edouard MD CHEMISTRY [facility] [address] [place] [address] * (ABNORMAL) RETICULOCYTES (11/12/2023 8:56 AM CDT) [facility] RETIC% 6.6(H) 0.5 - 1.5 % 11/12/2023 1:15 PM CDT [facility] RETIC (ABSOLUTE) 0.24(H) 0.03 - 0.08 mil/cu mm 11/12/2023 1:15 PM CDT [facility] Blood BLOOD SPECIMEN / Unknown Butterfly / Unknown 11/12/2023 8:56 AM CDT 11/12/2023 8:57 AM CDT Narrative [facility] LAB[facility] - 11/12/2023 1:15 PM CDT This procedure was originally ordered at [facility]. Radha Edouard MD HEMATOLOGY Performing Organization Address City/[facility] Co de Phone Number [facility] [address] [place] [address], * (ABNORMAL) HEPATIC FUNCTION PANEL (11/12/2023 8:56 AM CDT) [facility] ALBUMIN 2.9(L) 4.0 - 4.9 g/dL 11/12/2023 9:43 AM CDT [facility] PROTEIN,TOTAL 10.2(H) 6.0 - 8.0 g/dL 11/12/2023 9:43 AM CDT [facility] BILIRUBIN,TOTAL 0.5 0.0 - 1.2 mg/dL 11/12/2023 9:43 AM CDT [facility] BILIRUBIN,DIRECT <0.2 0.0 - 0.3 mg/dL 11/12/2023 9:43 AM CDT [facility] BILIRUBIN,INDIRE CT 11/12/2023 9:43 AM CDT [facility] Comment:Unable to calculate, Direct Bili <0.2 ALK PHOSPHATASE 87 40 - 129 IU/L 11/12/2023 9:43 AM [facility] ALT (SGPT) <5(L) 10 - 50 IU/L 11/12/2023 9:43 AM [facility] AST (SGOT) 46 10 - 50 IU/L 11/12/2023 9:43 AM [facility] Blood BLOOD SPECIMEN / Unknown Butterfly / Unknown 11/12/2023 8:56 AM CDT 11/12/2023 8:57 AM CDT Radha Edouard MD CHEMISTRY [facility] [address] [place] [address] * (ABNORMAL) BASIC METABOLIC PANEL (11/12/2023 8:56 AM T) SODIUM 132(L) 136 - 145 mmol/L 11/12/2023 9:28 AM [facility] POTASSIUM 4.0 3.5 - 5.1 mmol/L 11/12/2023 9:28 AM [facility] CHLORIDE 101 98 - 107 mmol/L 11/12/2023 9:28 AM [facility] CO2,TOTAL 22 22 - 29 mmol/L 11/12/2023 9:28 AM [facility] ANION GAP 9 5 - 18 11/12/2023 9:28 AM [facility] GLUCOSE 98 70 - 99 mg/dL 11/12/2023 9:28 AM [facility] CALCIUM 8.1(L) 8.8 - 10.2 mg/dL 11/12/2023 9:28 AM [facility] BUN 17 8 - 23 mg/dL 11/12/2023 9:28 AM [facility] CREATININE 1.44(H) 0.70 - 1.20 mg/dL 11/12/2023 9:28 AM [facility] BUN/CREAT RATIO 12 10 - 20 9:28 AM [facility] eGFR 53(L) >90 mL/min/1.7 3m2 11/12/2023 9:28 AM CDT [facility] Comment:As of 2021, eG FR [...] 8:57 AM CDT Radha Edouard MD CHEMISTRY [facility] [address] [place], [place] [address] * SCAN CORRESP-LABORATORY RESULTS (10/28/2023 12:00 AM [...] Non Reactive 10/11/2022 12:[address] [facility] ([facility]) Blood BLOOD SPECIMEN / Unknown Venipuncture / Unknown 10/09/2022 9:06 AM CDT 10/09/2022 9:06 AM CDT N[facility]ative [facility] - 10/11/2022 12:08 PM CDT Performed at: ??01 - [facility] [address] [facility], [place], [place] ??[id number] Research [employer]oc: Zane Rebolledo MD, Phone: ??[phone] Radha Edouard MD LABORATORY [facility] ([facility]) [address] [place] [address], [place] * CT CHEST ABDOMEN PELVIS W [...] - 199 mg/dL 09/09/2022 12:53 PM T [facility] TRIGLYCERIDES 77 <150 mg/dL 09/09/2022 12:53 PM T [facility] HDL CHOLESTEROL 34(L) >40 mg/dL 12:53 PM [facility] NON-HDL CHOLESTEROL 115 <145 mg/dl 09/09/2022 12:53 PM CDT [facility] CHOL/HDL RATIO 4.38 <4.50 09/09/2022 12:53 PM CDT [facility] LDL CHOLESTEROL 100 <=130 mg/dL 09/09/2022 12:53 PM CDT [facility] VLDL CHOLESTEROL 15 <=30 mg/dL 09/09/2022 12:53 PM CDT [facility] PROVIDER ORDERED STATUS RANDOM 09/09/2022 12:53 PM CDT [facility] Blood BLOOD SPECIMEN / Unknown Butterfly / Unknown 09/09/2022 12:06 PM CDT 09/09/2022 12:07 PM CDT David Ambrocio MD CHEMISTRY [facility] [address] [place] [address] from Last 3 Months or Most Recently [...] Discussion: Reviewed Preferences wit h Care Teams Workforce Development Assistant Relationship Specialty Start Date End Date David Ambrocio MD [address] [place] [address] PCP - General Family Practice 11/27/22 Elvira Morin, RN [address] [place] [address] Nurse Navigator - Oncology Registered Nurse 10/18/22 Radha Edouard MD [address] [place] [address] Medical Oncologist Hematology and Oncology 11/21/22 Lizeth Alarcon, PHOTOGRAPHY INSTRUCTOR [address] [place] [address] Nurse Practitioner Hematology and Oncology 11/21/22 Segundo, KYUNG Hong [address] [place] [address] Manager Clinical 01/06/23 [facility] [address] [place] [address] 01/21/23
[2024-01-06 18:44] LABS: Slide Review Acceptable Review (Acceptable)
[2024-01-06] MEDS: METOPROLOL TARTRATE 1 MG/ML inj 5 MG IVP (18:57)
[2024-01-06] MEDS: METOPROLOL TARTRATE 100 MG TABLET PO (19:10)
--- NOTE | 2024-01-06 20:44 | P.IMHP_ITS ---
Hospitalist- H&P: HPI History of Present Illness Date Seen: 01/06/24 Chief complaint: High HR 140-150's, dizzy, SOB, low Bp, woundcare Narrative: Jacoby Alba is a 68 year old male with untreated acute myelogenous leukemia and COPD who presents with worsening dyspnea for at least 1 week. He reports that he gets very dyspneic with any activity and has to sit down and catch his breath. Not had chest pain. He has had a little bit of a cough which is nonproductive. He has not had a fever. No history of heart disease. Patient does have COPD from smoking. He quit smoking 4 days ago. Approximately 1 year ago he was diagnosed with acute myeloid leukemia. He was recommended to go to the hospital for evaluation and treatment but he declined. He has been referred to Oncology but he has declined any oncology follow-up. He tells me today that he would not accept any chemotherapy. He has been getting blood transfusions for anemia. He has also had neutropenia. He has not had significant thrombocytopenia. Blood cell abnormalities have been relatively stable over the past year with his blood transfusions. In the emergency department he was found to be in atrial flutter with 2-1 block and a heart rate in the upper 140s. This has not significantly responded to diltiazem plus metoprolol. Review of Systems Narrative: Patient has no concerns other than his relatively severe exertional dyspnea. [facility] Medical History (Updated 01/06/24 @ 21:01 by Chung Jack MD) Heart failure ?I50.9 - Heart failure, unspecified (ICD-10) Atrial flutter with rapid ventricular response ?I48.92 - Unspecified atrial flutter (ICD-10) COPD (chronic obstructive pulmonary disease) ?J44.9 - Chronic obstructive pulmonary disease, unspecified (ICD-10) AML (acute myelogenous leukemia) ?C92.00 - Acute myeloblastic leukemia, not having achieved remission (ICD-10) Anemia ?D64.9 - Anemia, unspecified (ICD-10) Cough ?R05.9 - Cough, unspecified (ICD-10) Surgical History Status post debridement ?Z98.890 - Other specified postprocedural states (ICD-10) Social History (Updated 01/06/24 @ 20:55 by Chung Jack MD) Narrative: He lives in [place] with his and 2 adult children. 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 Code status is full. Long-time smoker having quit for days ago. Quit using alcohol and recreational drugs in 1985. 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 What is your current living situation?: I presently have a place to live Problems where you live: no known problems In the past 12 months, utilities in danger of being shut off: no In past 12 months, lack of transportation kept you from medical appts, meetings, work, or getting things needed for daily living: no In the past 12 mos, have been you worried that your food would run out before you had money to buy more?: never true In the past 12 mos, the food you bought just didn't last and you didn't have money to buy more?: never true Smoking Status: Current every day smoker What tobacco products do you use: cigarettes How often do you have a drink containing alcohol: never AUDIT-C Alcohol total score: 0 Non-prescribed substance use: denies use Caffeine: Yes How often does anyone, including family, friends and others, physically hurt you : never How often does anyone, including family, friends and others, insult or talk down to you: never How often does anyone, including family, friends and others, threaten you with harm: never How often does anyone, including family, friends and others, scream or curse at you: never Meds Home Medications and Allergies Home Medication Comments: Takes [place] before going to wound care appointments weekly Allergies Allergy/AdvReac Type Severity Reaction Status Date / Time No Known Drug Allergies Allergy Verified 01/06/24 15:54 Exam Narrative: Exam Narrative: He is alert and appears in no distress. Speech is normal. Oropharynx is normal. Neck is supple without mass or adenopathy. Appears to have mild jugular venous distension. Respirations with diminished breath sounds throughout. No marked wheezing. Rare basilar crackle. Cardiovascular: S1, S2, regular tachycardia. Abdomen: Bowel sounds active. Abdomen is soft without tenderness or mass. Right lower extremity wound is examined: He has fairly prominent granulation tissue protruding above the epidermis in an area of about 5 x 15 cm on the right lateral calf. No marked erythema. He has 1+ edema in that foot distal to the compression wrap. Left lower extremity without significant edema. Intact pulses in both feet. Const: Vital Signs, click to edit/add: Vital Signs - 24 hr 01/06/24 15:48 01/06/24 17:19 01/06/24 17:20 Temperature 97.5 F L Pulse Rate 148 H 149 H Pulse Rate [Pulse Oximeter] 146 H Respiratory Rate 20 Blood Pressure 132/88 Blood Pressure [Ri ght Upper Arm] 138/90 H Pulse Oximetry 97 96 95 Oxygen Delivery Me thod Room Air 01/06/24 17:21 01/06/24 18:00 01/06/24 18:01 Temperature Pulse Rate 148 H 151 H 147 H Pulse Rate [Pulse Oximeter] Respiratory Rate Blood Pressure 126/85 Blood Pressure [Ri ght Upper Arm] Pulse Oximetry 94 94 95 Oxygen Delivery Me thod 01/06/24 18:02 01/06/24 18:57 01/06/24 18:58 Temperature Pulse Rate 147 H 146 H 146 H Pulse Rate [Pulse Oximeter] Respiratory Rate Blood Pressure 101/78 Blood Pressure [Ri ght Upper Arm] Pulse Oximetry 97 95 97 Oxygen Delivery Me thod 01/06/24 19:00 01/06/24 19:01 01/06/24 19:02 Temperature Pulse Rate 145 H 147 H 145 H Pulse Rate [Pulse Oximeter] Respiratory Rate Blood Pressure 109/78 Blood Pressure [Ri ght Upper Arm] Pulse Oximetry 98 99 99 Oxygen Delivery Me thod 01/06/24 19:33 Temperature Pulse Rate 147 H Pulse Rate [Pulse Oximeter] Respiratory Rate Blood Pressure 113/73 Blood Pressure [Ri ght Upper Arm] Pulse Oximetry 94 Oxygen Delivery Me thod Documenting provider has reviewed patient's vital signs: yes Hospitalist - H&P: Result Labs Labs: Short CBC 01/06/24 Range/Units 16:50 WBC 3.87 L (4.50-11.00) K/uL Hgb 7.4 L* (13.5-17.5) gm/dL Hct 25.9 L (37.0-53.0) % Plt Count 218 (140-440) K/uL BMP 01/06/24 16:50 Sodium 133 L Potassium 4.1 Chloride 105 Carbon Dioxide 19 L BUN 21 Creatinine 1.7 H Glucose 99 Calcium 8.3 L Cardiac Enzymes 10/01/24 Range/Units 16:50 Troponin I < 0.01 L (0.01-0.04) ng/mL Urine 01/06/24 Range/Units 16:00 Urine Color Yellow (Yellow) Urine Appearance Clear (Clear) Urine pH 5.5 (5.0-8.5) Ur Specific [place] <= 1.005 (1.000-1.030) Urine Protein Negative (Negative) Urine Glucose (UA) Negative (Negative) Assessment and Plan Assessment and plan (1) Atrial flutter with rapid ventricular response: Problem comment: Has not had good rate control with IV diltiazem plus oral metoprolol. Will continue these treatments and add in digoxin. If having ongoing difficulties with rate control may require transfer for JIMMY cardioversion. Status: Acute (2) Heart failure: Problem comment: Appears to have heart failure. IV furosemide with blood transfusion tonight. Obtain echo Status: Acute (3) AML (acute myeloid leukemia): Problem comment: Diagnosed summer. Declines oncology evaluation and treatment Status: Acute (4) Anemia: Problem comment: Has iron deficiency but primarily has anemia from AML. Becoming transfusion dependent. Transfuse 1 unit of blood tonight and follow Status: Acute (5) COPD (chronic obstructive pulmonary disease): Problem comment: Appears quiescent at this point. P.r.n. nebs Status: Acute (6) Chronic wound of extremity: Problem comment: Chronic lateral right leg ulcer. Slowly healing over the last year. Cared for in [facility]. Continue routine outpatient wound care plan Status: Acute Plan Patient is admitted the hospital for management of atrial flutter with RVR, heart failure, transfusion dependent anemia from AML. Total Time Spent Total Time Spent: Total time spent today is 80 minutes in coordination of care and discussing with patient and other providers ongoing management of a flutter with RVR, heart failure, AML, anemia
[2024-01-06] MEDS: DIGOXIN 250 MCG/ML inj 500 MCG IV (20:54)
[2024-01-06] MEDS: FUROSEMIDE 10 MG/ML inj 40 MG IVP (20:54)
[2024-01-06] MEDS: SODIUM CHLORIDE 0.9 % (FLUSH) 10 ML SYRINGE 5 ML IVF (20:55)
[2024-01-06] MEDS: POTASSIUM BICARB 25 MEQ EFFERVESCENT TAB PO (20:55)
[2024-01-06] MEDS: dilTIAZem 30 MG TABLET PO (22:03)
[2024-01-06] MEDS: METOPROLOL TARTRATE 50 MG TABLET PO (22:42)
[2024-01-06] MEDS: dilTIAZem 30 MG TABLET 60 MG PO (23:41)
[2024-01-07] VITALS (19 sets, daily range): BP systolic 105–135; BP diastolic 66–85; PULSE 69–145; RESP 20–32; TEMP 36.4–37.1; O2SAT 91–97; BMI 28.1
[2024-01-07] MEDS: DIGOXIN 250 MCG/ML inj IV ×2 (02:13→09:45)
[2024-01-07] MEDS: dilTIAZem 30 MG TABLET 60 MG PO ×2 (03:11→07:35)
--- NOTE | 2024-01-07 06:40 | PC.NURSE ---
19-07: pleasant and cooperative. Indep in rm. Uses urinal prn. HR 130s-140s, PRN Dilt given x 2, after 2nd admin pts HR began trending down ?> 70s-140s. Around 0500 pts HR 70s-110s. Tachypneic, RR 28-34, LS clear, occasional nonproductive cough, 1PPD smoking hx. Pt reports having to sleep sitting up lately, pt was having difficulty breathing while lying flat, pt in high fowlers position. Pts weight is up 7lbs from admin weight, Lasix given at HS, see output.?1-unit PRBCs given. IV Saline Locked. Pitting edema BLE. Chronic Wound to Right Lateral Leg, pt sees wound care weekly. Pt reports changing wound dressing every other day at home.
[2024-01-07 07:04] LABS: Basophils Percent Auto 1.5 % (0.0-3.0); Hematocrit 26.6 % (37.0-53.0); Immature Granulocytes Pct Auto 0.7 %; Lymphocytes Percent Auto 37.5 % (20-44); Mean Corpuscular HGB Conc 29 gm/dL (32-36); Mean Corpuscular Hemoglobin 23 pg (26-34); Mean Corpuscular Volume 77 fL (80-100); Monocytes Percent Auto 28.6 % (0.0-11.0); Neutrophils Percent Auto 31.7 % (42.0-72.0); Platelet Count* 218 K/uL (140-440); RDW Coefficient of Variation % 20.8 % (11.5-15.5); Red Blood Count 3.45 m/uL (4.30-5.90); White Blood Count* 4.05 K/uL (4.50-11.00)
[2024-01-07 07:16] LABS: Hemoglobin* 7.8 gm/dL (13.5-17.5)
[2024-01-07 07:24] LABS: Chloride* 103 mmol/L (96-114); Potassium* 4.2 mmol/L (3.6-5.1); Sodium* 131 mmol/L (135-149)
[2024-01-07 07:27] LABS: Anion Gap 9 mEq/L (7-15); Blood Urea Nitrogen* 26 mg/dL (7-30); Carbon Dioxide* 19 mmol/L (20-32); Est. Creatinine Clearance* 35.35; Estimated Glomerular Filt Rate 36 ml/min; Glucose* 139 mg/dL (60-115)
[2024-01-07 07:28] LABS: Calcium* 7.6 mg/dL (8.4-10.6)
[2024-01-07] MEDS: SODIUM CHLORIDE 0.9 % (FLUSH) 10 ML SYRINGE 5 ML IVF ×2 (08:24→21:01)
[2024-01-07] MEDS: METOPROLOL TARTRATE 50 MG TABLET PO ×2 (08:24→21:01)
--- NOTE | 2024-01-07 08:27 | CRLHL7_ITS ---
For Patients: As a result of the Century Cures Act, medical imaging exams and procedure reports are released immediately into your electronic medical record. You may view this report before your referring provider. If you have questions, please contact your health care provider. INDICATION: Shortness of breath, CHF versus pneumonia TECHNIQUE: Chest 1 views. COMPARISON: Chest radiograph 01/06/2024 FINDINGS: Cardiovasculature and mediastinum: Mild cardiomegaly is similar to prior. Unremarkable mediastinum. Lungs and pleural spaces: Lung volumes are low. Increased interstitial prominence and small bilateral pleural effusions. No pneumothorax. Bones and soft tissues: No significant findings. IMPRESSION: Increased interstitial prominence, likely increased pulmonary edema. Small bilateral pleural effusions, slightly increased compared to prior. Dictated by Vanessa Gee MD @ 01/07/2024 9:01:12 AM (Electronically Signed)
[2024-01-07 09:04] LABS: HCO3 VBG 21 mmol/L (21-28); Lactate* 1.3 mmol/L (0.5-1.9); PCO2 VBG 34 mmHG (40-50); PO2 VBG 38.4 mmHG (25-47); pH VBG 7.393 (7.32-7.43)
[2024-01-07 09:14] LABS: C Reactive Protein* 4.3 mg/dL (0.5-1.0)
--- NOTE | 2024-01-07 09:20 | P.IMPN_ITS ---
Progress Note: A&P Assessment and plan (1) Atrial flutter with rapid ventricular response: Problem details: -improved overnight. rate now 70-80's -scheduled metoprolol (50mg BID), digoxin (125mcg daily) -prn Cardizem -obtain echo; update troponin (neg) Status: Acute (2) Heart failure: Problem details: -no previous heart disease -await echo -continue diuresis (IV lasix --> po lasix) secondary to weight gain overnight, CXR findings. monitor renal function. -transfused x 1, will repeat this am Status: Acute (3) AML (acute myeloid leukemia): Problem details: Diagnosed summer. Declines oncology evaluation and treatment Status: Acute (4) Anemia: Problem details: -Has iron deficiency but primarily has anemia from AML. -Becoming transfusion dependent. -2nd unit ordered am of 01/07/24 Status: Acute (5) COPD (chronic obstructive pulmonary disease): Problem details: -no wheezing -no oxygen requirement -normal gas -mildly productive cough; with increased CRP/Procalcitonin and change in phlegm - will initiate Doxy 100mg BID x 7 days. Status: Acute (6) Chronic wound of extremity: Problem details: Chronic lateral right leg ulcer. Slowly healing over the last year. Cared for in [facility]. Continue routine outpatient wound care plan Status: Acute (7) CHLOÉ (acute kidney injury): Problem details: -baseline 1.1 -admit 1.7 --> 40mg IV lasix --> 2.0 -normal potassium -in acute CHF; competing priorities. transition to oral lasix; monitor renal function. Status: Acute (8) Hyponatremia: Problem details: -mild -fluid restriction Status: Acute (9) Tobacco dependence: Problem details: -long lifetime smoker -quit 01/04/24 -thinks the nicotine patch gives him bloody noses Status: Acute (10) Increased thyroid stimulating hormone (TSH) level: Problem details: -probable sick euthyroid -adding total T3 -follow labs Status: Acute Subjective Date Seen: 01/07/24 Interval history: Daily Progress Note - Hospital Medicine Day #: 2 CC: Acute shortness of breath 24 HOUR UPDATE: He states he feels much better. He has improved his heart rate control nicely. He received 2 doses of IV digoxin overnight and his heart rate now in the 70s and 80s. He remains in a flutter. He is on room air satting 92%. He is afebrile. His blood pressure is stable. Notable Labs, Micro, Rads, Interventions: Hemoglobin only went from 7.4-7.8 with 1 unit. His total white blood cell count is 4000, his platelet count is 230318 He has a normal pH, no CO2 retention His lactate is normal His sodium has dropped to 131 from 133 His creatinine has climbed from 1.7-2.0, his potassium is normal. His EKG this morning shows some increased evidence of pulmonary edema. His we ight is up 8.8 lb, 4.0 kilos. These were post standing weights, bedside. Pending this morning includes a troponin, CRP, BNP, procalcitonin, total T3. He has an echo scheduled for today A blood culture was drawn this morning. Objective: Mildly disheveled. No acute distress. He is speaking in full sentences sitting on the side of his bed. Vitals: see above Lungs: Bibasilar crackles. No respiratory distress. Cardiac: S1S2. Normal heart rate. No obvious murmur. Edema is approximately 2+ bilaterally. Right leg wound, wound dressing was not taken down. Just seen yesterday by wound care clinic. Disposition/Potential discharge - likely home with in 2-3 days. Today I spent 50minutes seeing the patient, reviewing Expanse and EPIC notes/diagnostics, discussing the care plan with our care time that includes social work, PT/OT, pharmacy, RT, mcfp and documenting my impressions and plan in the medical record. Exam Const: Vital Signs, click to edit/add: Vital Signs - 24 hr 01/06/24 15:48 01/06/24 17:19 01/06/24 17:20 Temperature 97.5 F L Pulse Rate 148 H 149 H Pulse Rate [Pulse Oximeter] 146 H Respiratory Rate 20 Blood Pressure 132/88 Blood Pressure [Le ft Arm] Blood Pressure [Ri ght Arm] Blood Pressure [Ri ght Upper Arm] 138/90 H Pulse Oximetry 97 96 95 Oxygen Delivery Me thod Room Air 01/06/24 17:21 01/06/24 18:00 01/06/24 18:01 Temperature Pulse Rate 148 H 151 H 147 H Pulse Rate [Pulse Oximeter] Respiratory Rate Blood Pressure 126/85 Blood Pressure [Le ft Arm] Blood Pressure [Ri ght Arm] Blood Pressure [Ri ght Upper Arm] Pulse Oximetry 94 94 95 Oxygen Delivery Me thod 01/06/24 18:02 01/06/24 18:57 01/06/24 18:58 Temperature Pulse Rate 147 H 146 H 146 H Pulse Rate [Pulse Oximeter] Respiratory Rate Blood Pressure 101/78 Blood Pressure [Le ft Arm] Blood Pressure [Ri ght Arm] Blood Pressure [Ri ght Upper Arm] Pulse Oximetry 97 95 97 Oxygen Delivery Me thod 01/06/24 19:00 01/06/24 19:01 01/06/24 19:02 Temperature Pulse Rate 145 H 147 H 145 H Pulse Rate [Pulse Oximeter] Respiratory Rate Blood Pressure 109/78 Blood Pressure [Le ft Arm] Blood Pressure [Ri ght Arm] Blood Pressure [Ri ght Upper Arm] Pulse Oximetry 98 99 99 Oxygen Delivery Me thod 01/06/24 19:33 01/06/24 19:50 01/06/24 21:17 Temperature 98.3 F Pulse Rate 147 H Pulse Rate [Pulse Oximeter] 144 H Respiratory Rate 32 H Blood Pressure 113/73 Blood Pressure [Le ft Arm] Blood Pressure [Ri ght Arm] 135/81 Blood Pressure [Ri ght Upper Arm] Pulse Oximetry 94 97 Oxygen Delivery Me thod Room Air Room Air 01/06/24 21:34 01/06/24 22:49 01/06/24 23:00 Temperature 98.4 F Pulse Rate 138 H 138 H Pulse Rate [Pulse Oximeter] 136 H Respiratory Rate 18 32 H Blood Pressure 117/81 Blood Pressure [Le ft Arm] Blood Pressure [Ri ght Arm] Blood Pressure [Ri ght Upper Arm] Pulse Oximetry 96 Oxygen Delivery Me thod 01/06/24 23:00 01/06/24 23:05 01/06/24 23:35 Temperature 98.2 F Pulse Rate 138 H 136 H Pulse Rate [Pulse Oximeter] Respiratory Rate 32 H 32 H Blood Pressure 118/83 159/51 H Blood Pressure [Le ft Arm] Blood Pressure [Ri ght Arm] Blood Pressure [Ri ght Upper Arm] Pulse Oximetry 97 95 97 Oxygen Delivery Me thod Room Air Room Air Room Air 01/07/24 00:05 01/07/24 00:35 01/07/24 02:19 Temperature 98.3 F 98.3 F Pulse Rate 137 H 121 H 138 H Pulse Rate [Pulse Oximeter] Respiratory Rate 30 H 30 H 28 H Blood Pressure 124/79 108/85 133/81 Blood Pressure [Le ft Arm] Blood Pressure [Ri ght Arm] Blood Pressure [Ri ght Upper Arm] Pulse Oximetry 97 95 95 Oxygen Delivery Me thod Room Air Room Air Room Air 01/07/24 04:30 01/07/24 05:30 01/07/24 07:32 Temperature 98.7 F Pulse Rate Pulse Rate [Pulse Oximeter] 138 H 74 Respiratory Rate 32 H 24 Blood Pressure Blood Pressure [Le ft Arm] Blood Pressure [Ri ght Arm] 105/73 Blood Pressure [Ri ght Upper Arm] Pulse Oximetry 95 92 Oxygen Delivery Me thod Room Air Room Air 01/07/24 07:32 01/07/24 07:40 Temperature 98.5 F Pulse Rate 116 H Pulse Rate [Pulse Oximeter] 141 H Respiratory Rate 24 Blood Pressure Blood Pressure [Le ft Arm] 113/72 Blood Pressure [Ri ght Arm] Blood Pressure [Ri ght Upper Arm] Pulse Oximetry 92 Oxygen Delivery Me thod Room Air Labs Labs: Laboratory Results - last 24 hr 01/06/24 01/06/24 01/06/24 16:00 16:50 16:52 WBC 3.87 L RBC 3.34 L Hgb 7.4 L* Hct 25.9 L MCV 78 L MCH 22 L MCHC 29 L RDW Coeff of [place] 21.4 H Plt Count 218 Neut % (Auto) 31.5 L Lymph % (Auto) 34.1 [place] % (Auto) 30.7 H Eos % (Auto) 0.3 Baso % (Auto) 2.1 Neut # (Auto) 1.20 L Lymph # (Auto) 1.30 [place] # (Auto) 1.20 H Eos # (Auto) 0.00 Baso # (Auto) 0.10 Abs Immat Gran (auto) 0.10 Imm/Tot Granulo (auto) 1.3 Diff Slide Review Acceptable Review VBG pH VBG pCO2 VBG pO2 VBG HCO3 Sodium 133 L Potassium 4.1 Chloride 105 Carbon Dioxide 19 L Anion Gap 9 BUN 21 Creatinine 1.7 H Estimated Creat Clear Estimated GFR 43 Glucose 99 Lactate 1.8 Calcium 8.3 L Magnesium 2.2 Troponin I < 0.01 L NT-Pro-B Natriuret Pep 5350 TSH 16.400 H Free T4 1.40 Urine Color Yellow Urine Appearance Clear Urine pH 5.5 Ur Specific [place] <= 1.005 Urine Protein Negative Urine Glucose (UA) Negative Urine Ketones Negative Urine Blood Negative Urine Nitrite Negative Urine Bilirubin Negative Urine Urobilinogen 0.2 Ur Leukocyte Esterase Negative Urine RBC 0-2 Urine WBC 0-2 Ur Squamous Epith Cells None Urine Bacteria Few A SARS-CoV-2 (PCR) Negative SARS-CoV-2 Influenza Type A (PCR) Negative PCR FLU A Influenza Type B (PCR) Negative PCR FLU B Lab Acknowledgement Blood Type Antibody Screen Crossmatch ([facility]) 01/06/24 01/07/24 01/07/24 20:50 06:42 08:23 WBC 4.05 L RBC 3.45 L Hgb 7.8 L* Hct 26.6 L MCV 77 L MCH 23 L MCHC 29 L RDW Coeff of [place] 20.8 H Plt Count 218 Neut % (Auto) 31.7 L Lymph % (Auto) 37.5 [place] % (Auto) 28.6 H Eos % (Auto) 0.0 Baso % (Auto) 1.5 Neut # (Auto) 1.30 L Lymph # (Auto) 1.50 [place] # (Auto) 1.20 H Eos # (Auto) 0.00 Baso # (Auto) 0.10 Abs Immat Gran (auto) 0.00 Imm/Tot Granulo (auto) 0.7 Diff Slide Review VBG pH VBG pCO2 VBG pO2 VBG HCO3 Sodium 131 L Potassium 4.2 Chloride 103 Carbon Dioxide 19 L Anion Gap 9 BUN 26 Creatinine 2.0 H Estimated Creat Clear 35.35 Estimated GFR 36 Glucose 139 H Lactate Calcium 7.6 L Magnesium Troponin I NT-Pro-B Natriuret Pep TSH Free T4 Urine Color Urine Appearance Urine pH Ur Specific [place] Urine Protein Urine Glucose (UA) Urine Ketones Urine Blood Urine Nitrite Urine Bilirubin Urine Urobilinogen Ur Leukocyte Esterase Urine RBC Urine WBC Ur Squamous Epith Cells Urine Bacteria SARS-CoV-2 (PCR) Influenza Type A (PCR) Influenza Type B (PCR) Lab Acknowledgement Test Added Blood Type O Negative Antibody Screen NEGATIVE Crossmatch ([facility]) See Detail 01/07/24 08:55 WBC RBC Hgb Hct MCV MCH MCHC RDW Coeff of [place] Plt Count Neut % (Auto) Lymph % (Auto) [place] % (Auto) Eos % (Auto) Baso % (Auto) Neut # (Auto) Lymph # (Auto) [place] # (Auto) Eos # (Auto) Baso # (Auto) Abs Immat Gran (auto) Imm/Tot Granulo (auto) Diff Slide Review VBG pH 7.393 VBG pCO2 34 L VBG pO2 38.4 VBG HCO3 21 Sodium Potassium Chloride Carbon Dioxide Anion Gap BUN Creatinine Estimated Creat Clear Estimated GFR Glucose Lactate 1.3 Calcium Magnesium Troponin I NT-Pro-B Natriuret Pep TSH Free T4 Urine Color Urine Appearance Urine pH Ur Specific [place] Urine Protein Urine Glucose (UA) Urine Ketones Urine Blood Urine Nitrite Urine Bilirubin Urine Urobilinogen Ur Leukocyte Esterase Urine RBC Urine WBC Ur Squamous Epith Cells Urine Bacteria SARS-CoV-2 (PCR) Influenza Type A (PCR) Influenza Type B (PCR) Lab Acknowledgement Blood Type Antibody Screen Crossmatch ([facility])
[2024-01-07 09:22] LABS: NT Pro B Type NatriureticPept* 6320 pg/mL
[2024-01-07 09:28] LABS: Procalcitonin* 0.56 ng/mL (<0.50)
[2024-01-07 09:29] LABS: Troponin I* < 0.01 ng/mL (0.01-0.04)
[2024-01-07] MEDS: POTASSIUM CHLORIDE 10 MEQ CAPSULE ER 20 MEQ PO ×2 (09:45→17:46)
[2024-01-07] MEDS: FUROSEMIDE 40 MG TABLET PO (09:45)
[2024-01-07] MEDS: DOXYCYCLINE HYCLATE 100 MG PO ×2 (11:45→21:01)
[2024-01-07] MEDS: FUROSEMIDE 10 MG/ML inj 40 MG IVP (14:35)
[2024-01-07] MEDS: dilTIAZem 240 MG CAP (CD) PO (15:50)
[2024-01-07 16:30] LABS: Slide Review Reflex No
[2024-01-07] MEDS: dilTIAZem 30 MG TABLET PO (19:03)
[2024-01-08] VITALS (9 sets, daily range): BP systolic 101–136; BP diastolic 66–78; PULSE 60–101; RESP 16–22; TEMP 36.4–36.6; O2SAT 90–94
--- NOTE | 2024-01-08 05:41 | PC.NURSE ---
Shift note: Pt is independent in room. Hard of hearing, alert and oriented. Pt pleasant and cooperate with treatment and cares. HR at the start of the shift was 1445. PRN medication for the and HR ahs remained ij
--- NOTE | 2024-01-08 06:01 | PC.NURSE ---
Shift note: Pt is independent in room. Hard of hearing, alert and oriented. Pt pleasant and cooperate with treatment and cares. HR at the start of the shift was 1445. PRN medication for the and HR has remained within 70s. Pt denied any pain, SOB, Palpitation o dizziness. Pt spent most of the night sleeping in the recliner. Vitally stable.
[2024-01-08 06:32] LABS: HCO3 VBG 22 mmol/L (21-28); PCO2 VBG 38 mmHG (40-50); PO2 VBG 50.2 mmHG (25-47); pH VBG 7.374 (7.32-7.43)
[2024-01-08 06:33] LABS: Basophils Percent Auto 1.5 % (0.0-3.0); Eosinophils Percent Auto 0.2 % (0.0-7.0); Hematocrit 29.9 % (37.0-53.0); Hemoglobin* 8.9 gm/dL (13.5-17.5); Immature Granulocytes Pct Auto 1.5 %; Lymphocytes Percent Auto 37.8 % (20-44); Mean Corpuscular HGB Conc 30 gm/dL (32-36); Mean Corpuscular Hemoglobin 23 pg (26-34); Mean Corpuscular Volume 78 fL (80-100); Monocytes Percent Auto 29.4 % (0.0-11.0); Neutrophils Percent Auto 29.6 % (42.0-72.0); Platelet Count* 185 K/uL (140-440); Red Blood Count 3.85 m/uL (4.30-5.90); White Blood Count* 4.02 K/uL (4.50-11.00)
[2024-01-08 06:34] LABS: Slide Review Reflex No
[2024-01-08 06:54] LABS: Albumin* 3.2 g/dL (3.3-5.0); Chloride* 104 mmol/L (96-114); Sodium* 131 mmol/L (135-149)
[2024-01-08 06:55] LABS: Albumin* 3.1 g/dL (3.3-5.0); Chloride* 102 mmol/L (96-114); Potassium* 3.9 mmol/L (3.6-5.1); Sodium* 132 mmol/L (135-149)
[2024-01-08 06:56] LABS: Creatinine* 1.9 mg/dL (0.5-1.5); Est. Creatinine Clearance* 37.21; Estimated Glomerular Filt Rate 38 ml/min
[2024-01-08 06:57] LABS: Alkaline Phosphatase* 97 U/L (40-150); Anion Gap 6 mEq/L (7-15); Aspartate Amino Transferase* 126 U/L (12-35); Bilirubin Direct* 0.4 mg/dL (0.0-0.5); Bilirubin Total* 1.1 mg/dL (0.1-1.5); Blood Urea Nitrogen* 31 mg/dL (7-30); Carbon Dioxide* 21 mmol/L (20-32); Glucose* 93 mg/dL (60-115); Total Protein* 9.6 g/dL (6.0-8.3)
[2024-01-08 06:58] LABS: Alanine Aminotransferase* 70 U/L (4-50); Anion Gap 8 mEq/L (7-15); Blood Urea Nitrogen* 29 mg/dL (7-30); Calcium* 7.8 mg/dL (8.4-10.6); Carbon Dioxide* 22 mmol/L (20-32); Est. Creatinine Clearance* 35.35; Estimated Glomerular Filt Rate 36 ml/min
[2024-01-08 06:59] LABS: Calcium* 7.7 mg/dL (8.4-10.6); Glucose* 90 mg/dL (60-115); Phosphorus* 4.7 mg/dL (2.5-4.5)
[2024-01-08 07:14] LABS: Procalcitonin* 0.62 ng/mL (<0.50)
[2024-01-08] MEDS: FUROSEMIDE 10 MG/ML inj 40 MG IVP (08:03)
[2024-01-08] MEDS: DIGOXIN 125 MCG TABLET PO (08:03)
[2024-01-08] MEDS: SODIUM CHLORIDE 0.9 % (FLUSH) 10 ML SYRINGE 5 ML IVF ×2 (08:03→21:25)
[2024-01-08] MEDS: dilTIAZem 240 MG CAP (CD) PO (08:03)
[2024-01-08] MEDS: POTASSIUM CHLORIDE 10 MEQ CAPSULE ER 20 MEQ PO ×2 (08:08→17:37)
[2024-01-08] MEDS: DOXYCYCLINE HYCLATE 100 MG PO ×2 (09:09→21:25)
[2024-01-08] MEDS: METOPROLOL TARTRATE 50 MG TABLET PO ×2 (09:09→21:25)
--- NOTE | 2024-01-08 09:45 | P.IMPN_ITS ---
Progress Note: A&P Assessment and plan (1) Atrial flutter with rapid ventricular response: Problem details: -improved overnight. rate now 70-80's -scheduled metoprolol (50mg BID), digoxin (125mcg daily) and Cardizem (240mg daily) -prn Cardizem (30mg q6h - last dose was 7 pm 01/06) Status: Acute (2) Heart failure: Problem details: -no previous heart disease -echo reviewed: preserved LVEF. fluid overload present. -weight down and neutral from this summer. -continue diuresis. monitor renal function. -transfused x 2 units. Status: Acute (3) AML (acute myeloid leukemia): Problem details: Diagnosed summer. Declines oncology evaluation and treatment Status: Acute (4) Anemia: Problem details: -Has iron deficiency but primarily has anemia from AML. -Becoming transfusion dependent. -s/p 2 units this hospitalization -no blood loss Status: Acute (5) COPD (chronic obstructive pulmonary disease): Problem details: -no wheezing -no oxygen requirement -normal gas -mildly productive cough; with increased CRP/Procalcitonin and change in phlegm - will initiate Doxy 100mg BID x 7 days. Status: Acute (6) Chronic wound of extremity: Problem details: Chronic lateral right leg ulcer. Slowly healing over the last year. Cared for in [facility]. Continue routine outpatient wound care plan Status: Acute (7) CHLOÉ (acute kidney injury): Problem details: -baseline 1.1 -admit 1.7 --> 2.0 with IV lasix. -normal potassium -in acute CHF; competing priorities. transition to oral lasix; monitor renal function. Status: Acute (8) Hyponatremia: Problem details: -mild -fluid restriction Status: Acute (9) Tobacco dependence: Problem details: -long lifetime smoker -quit 01/04/24 -thinks the nicotine patch gives him bloody noses Status: Acute (10) Increased thyroid stimulating hormone (TSH) level: Problem details: -probable sick euthyroid -adding total T3 -follow labs Status: Acute Subjective Date Seen: 01/08/24 Interval history: Daily Progress Note - Hospital Medicine Day #: 3 CC: Acute shortness of breath 24 HOUR UPDATE: best night sleep in a long time - Jacoby reports. Feeling better, not great, but better is his assessment. He wants to get home tomorrow to enjoy the nice weather this weekend. His main goal is affirmed to be, I want to be as comfortable at home as I can be, without major interventions or treatment for my cancer DNR/DNI designated yesterday afternoon. Notable Labs, Micro, Rads, Interventions: Rate has been mostly controlled. From about 3:00 p.m. to 7:00 p.m. yesterday he was above 140. However we started 24 hour acting diltiazem in addition to his scheduled digoxin, metoprolol and p.r.n. Cardizem -this was effective and his rate has been less than 100 all night. His blood pressure has been excellent. His respiratory rate has remained stable, 20. Likely his baseline. His O2 saturations are in the low 90s on room air His weight is down 2.5 kg. He still net up 1.5 kg from admission and up just about even from earlier this summer. His white count is low but stable. Not neutropenic. His hemoglobin has increased nicely to 8.9 after his 2nd unit. Platelet count is stable Blood gas normal Sodium stable and up a little at 132 Potassium is normal. His CHLOÉ is still present but stable with a creatinine of 2.0 Mild LFT elevation. Inflammatory markers are trending up modestly. CRP is up to 5. Procalcitonin is up to 0.6. This could reflect a bronchitis/COPD excerbation vs leg wound ongoing inflammation/infection. His blood cultures negative to date. His TSH was elevated but his free T4 was normal. His T3 is pending. Objective: Mildly disheveled. No acute distress. He is speaking in full sent ences in the recliner. Vitals: see above Lungs: Bibasilar crackles. No respiratory distress. Cardiac: S1S2. Normal heart rate. No obvious murmur. Edema is approximately 1+ bilaterally. Right leg wound, wound dressing was not taken down. Just seen yesterday by wound care clinic. Disposition/Potential discharge - likely home with in 2-3 days. Today I spent 50minutes seeing the patient, reviewing Expanse and EPIC notes/diagnostics, discussing the care plan with our care time that includes social work, PT/OT, pharmacy, RT, fci and documenting my impressions and plan in the medical record. Exam Const: Vital Signs, click to edit/add: Vital Signs - 24 hr 01/07/24 11:17 01/07/24 11:42 01/07/24 12:00 Temperature 98.1 F 97.8 F 97.5 F L Pulse Rate 69 73 70 Pulse Rate [Pulse Oximeter] Respiratory Rate 32 H 28 H 24 Blood Pressure 134/66 118/69 127/70 Blood Pressure [Le ft Arm] Blood Pressure [Ri ght Arm] Pulse Oximetry 92 93 93 Oxygen Delivery Me thod Room Air Room Air Room Air 01/07/24 12:30 01/07/24 13:00 01/07/24 13:29 Temperature 97.7 F 97.5 F L 97.7 F Pulse Rate 72 71 72 Pulse Rate [Pulse Oximeter] Respiratory Rate 24 28 H 26 H Blood Pressure 135/83 123/73 117/73 Blood Pressure [Le ft Arm] Blood Pressure [Ri ght Arm] Pulse Oximetry 92 93 95 Oxygen Delivery Me thod Room Air Room Air Room Air 01/07/24 14:30 01/07/24 14:55 01/07/24 15:00 Temperature 97.9 F Pulse Rate 72 72 Pulse Rate [Pulse Oximeter] 144 H Respiratory Rate 26 H 20 Blood Pressure 121/79 Blood Pressure [Le ft Arm] Blood Pressure [Ri ght Arm] Pulse Oximetry 96 Oxygen Delivery Me thod Room Air 01/07/24 15:00 01/07/24 15:00 01/07/24 19:00 Temperature 97.7 F 97.9 F Pulse Rate Pulse Rate [Pulse Oximeter] 144 H 145 H Respiratory Rate 20 20 20 Blood Pressure Blood Pressure [Le ft Arm] 127/78 Blood Pressure [Ri ght Arm] 130/85 Pulse Oximetry 93 93 91 Oxygen Delivery Me thod Room Air Room Air Room Air 01/07/24 23:00 01/07/24 23:00 01/07/24 23:00 Temperature 97.6 F Pulse Rate Pulse Rate [Pulse Oximeter] 72 72 Respiratory Rate 20 20 20 Blood Pressure Blood Pressure [Le ft Arm] 119/68 Blood Pressure [Ri ght Arm] Pulse Oximetry 92 92 Oxygen Delivery Me thod Room Air Room Air 01/07/24 23:00 01/08/24 03:00 01/08/24 07:57 Temperature 97.6 F 97.7 F Pulse Rate 75 Pulse Rate [Pulse Oximeter] 73 101 H Respiratory Rate 20 20 Blood Pressure Blood Pressure [Le ft Arm] Blood Pressure [Ri ght Arm] 130/74 136/72 Pulse Oximetry 90 91 Oxygen Delivery Me thod Room Air Room Air 01/08/24 08:00 01/08/24 08:00 01/08/24 08:00 Temperature Pulse Rate 73 Pulse Rate [Pulse Oximeter] Respiratory Rate 20 20 Blood Pressure Blood Pressure [Le ft Arm] Blood Pressure [Ri ght Arm] Pulse Oximetry 91 Oxygen Delivery Me thod Room Air 01/08/24 08:03 Temperature Pulse Rate 95 Pulse Rate [Pulse Oximeter] Respiratory Rate Blood Pressure Blood Pressure [Le ft Arm] Blood Pressure [Ri ght Arm] Pulse Oximetry Oxygen Delivery Me thod Labs Labs: Laboratory Results - last 24 hr 01/06/24 01/08/24 01/08/24 20:50 05:58 05:58 WBC 4.02 L RBC 3.85 L Hgb 8.9 L Hct 29.9 L MCV 78 L MCH 23 L MCHC 30 L RDW Coeff of Aguilar 21.0 H Plt Count 185 Neut % (Auto) 29.6 L Lymph % (Auto) 37.8 [place] % (Auto) 29.4 H Eos % (Auto) 0.2 Baso % (Auto) 1.5 Neut # (Auto) 1.20 L Lymph # (Auto) 1.50 [place] # (Auto) 1.20 H Eos # (Auto) 0.00 Baso # (Auto) 0.10 Abs Immat Gran (auto) 0.10 Imm/Tot Granulo (auto) 1.5 VBG pH 7.374 VBG pCO2 38 L VBG pO2 50.2 H VBG HCO3 22 Sodium 131 L 132 L Potassium 4.0 Chloride Carbon Dioxide Anion Gap BUN Creatinine Estimated Creat Clear Estimated GFR Glucose Calcium Phosphorus Total Bilirubin Direct Bilirubin AST ALT Alkaline Phosphatase C-Reactive Protein Total Protein Albumin Procalcitonin Blood Type O Negative Antibody Screen NEGATIVE Crossmatch ([facility]G) See Detail 01/08/24 01/08/24 01/08/24 05:58 05:58 05:58 WBC RBC Hgb Hct MCV MCH MCHC RDW Coeff of Aguilar Plt Count Neut % (Auto) Lymph % (Auto) [place] % (Auto) Eos % (Auto) Baso % (Auto) Neut # (Auto) Lymph # (Auto) [place] # (Auto) Eos # (Auto) Baso # (Auto) Abs Immat Gran (auto) Imm/Tot Granulo (auto) VBG pH VBG pCO2 VBG pO2 VBG HCO3 Sodium Potassium 3.9 Chloride 104 102 Carbon Dioxide 21 22 Anion Gap 6 L BUN Creatinine Estimated Creat Clear Estimated GFR Glucose Calcium Phosphorus Total Bilirubin Direct Bilirubin AST ALT Alkaline Phosphatase C-Reactive Protein Total Protein Albumin Procalcitonin Blood Type Antibody Screen Crossmatch ([facility]) 01/08/24 01/08/24 01/08/24 05:58 05:58 05:58 WBC RBC Hgb Hct MCV MCH MCHC RDW Coeff of Aguilar Plt Count Neut % (Auto) Lymph % (Auto) [place] % (Auto) Eos % (Auto) Baso % (Auto) Neut # (Auto) Lymph # (Auto) [place] # (Auto) Eos # (Auto) Baso # (Auto) Abs Immat Gran (auto) Imm/Tot Granulo (auto) VBG pH VBG pCO2 VBG pO2 VBG HCO3 Sodium Potassium Chloride Carbon Dioxide Anion Gap 8 BUN 31 H 29 Creatinine 1.9 H 2.0 H Estimated Creat Clear 37.21 Estimated GFR Glucose Calcium Phosphorus Total Bilirubin Direct Bilirubin AST ALT Alkaline Phosphatase C-Reactive Protein Total Protein Albumin Procalcitonin Blood Type Antibody Screen Crossmatch ([facility]) 01/08/24 01/08/24 01/08/24 05:58 05:58 05:58 WBC RBC Hgb Hct MCV MCH MCHC RDW Coeff of Aguilar Plt Count Neut % (Auto) Lymph % (Auto) [place] % (Auto) Eos % (Auto) Baso % (Auto) Neut # (Auto) Lymph # (Auto) [place] # (Auto) Eos # (Auto) Baso # (Auto) Abs Immat Gran (auto) Imm/Tot Granulo (auto) VBG pH VBG pCO2 VBG pO2 VBG HCO3 Sodium Potassium Chloride Carbon Dioxide Anion Gap BUN Creatinine Estimated Creat Clear 35.35 Estimated GFR 38 36 Glucose 93 90 Calcium 7.8 L Phosphorus Total Bilirubin Direct Bilirubin AST ALT Alkaline Phosphatase C-Reactive Protein Total Protein Albumin Procalcitonin Blood Type Antibody Screen Crossmatch ([facility]) 01/08/24 01/08/24 05:58 05:58 WBC RBC Hgb Hct MCV MCH MCHC RDW Coeff of Aguilar Plt Count Neut % (Auto) Lymph % (Auto) [place] % (Auto) Eos % (Auto) Baso % (Auto) Neut # (Auto) Lymph # (Auto) [place] # (Auto) Eos # (Auto) Baso # (Auto) Abs Immat Gran (auto) Imm/Tot Granulo (auto) VBG pH VBG pCO2 VBG pO2 VBG HCO3 Sodium Potassium Chloride Carbon Dioxide Anion Gap BUN Creatinine Estimated Creat Clear Estimated GFR Glucose Calcium 7.7 L Phosphorus 4.7 H Total Bilirubin 1.1 Direct Bilirubin 0.4 AST 126 H ALT 70 H Alkaline Phosphatase 97 C-Reactive Protein 5.0 H Total Protein 9.6 H Albumin 3.2 L 3.1 L Procalcitonin 0.62 H Blood Type Antibody Screen Crossmatch ([facility])
[2024-01-08] MEDS: APIXABAN 5 MG TABLET 2.5 MG PO ×2 (12:34→21:25)
--- NOTE | 2024-01-08 15:19 | PC.NURSE ---
7-15: The patient is alert and orientated, no symptoms reported other than fatigue this AM. VS on RA. Lungs clear, HR noted to be tachycardic prior scheduled medication administration. No reports of pain. HR when at rest noted 70-80bpm, when ambulating 80-95. The patient was educated regarding anticoagulants as well as the pricing between a few. Recommended Aerobika and IS for mucus in his throat, the patient refused both. Needs to walk 3 more times this evening. No lunch ordered by the patient. Call light within reach. No PRN cardiac medications given for rate control. Maureen BAXTER BSN
--- NOTE | 2024-01-08 22:45 | PC.NURSE ---
End of shift [id number]: Alert and oriented x 4. Pleasant and cooperative with cares. Denies any pain this shift but reports feeling sluggish. SOB with exertion, lung sounds diminished in bases. Independent in room. Tele continues to read A-flutter, rate remained below 100.
[2024-01-09 02:29] VITALS: PULSE 71; RESP 20
[2024-01-09 05:12] VITALS: BP 124/91; PULSE 125; O2SAT 94
[2024-01-09] MEDS: dilTIAZem 30 MG TABLET PO (05:13)
--- NOTE | 2024-01-09 06:26 | PC.NURSE ---
End of shift note [id number]: Pt alert & oriented x 4 and able to make needs known. He has slept in recliner per pt request and requested not to be woken up for VS. No c/o pain noted throughout the shift. IV in place to R forearm SL. Pt on tele with Atrial flutter noted which is not a new finding. Pt transfers/ambulates independently. He has been continent of bowel and bladder. Pt refused to have Tubigrip to RLE and NELSON stocking to LLE removed this shift. One dose of PRN Diltiazem administered per order due to heart rate of 125 and MAP of 102. Dressing to RLE noted to be C/D/I upon inspection. Pt on RA throughout the shift.
[2024-01-09 06:52] LABS: Hematocrit 31.9 % (37.0-53.0); Hemoglobin* 9.4 gm/dL (13.5-17.5); Mean Corpuscular HGB Conc 30 gm/dL (32-36); Mean Corpuscular Hemoglobin 23 pg (26-34); Mean Corpuscular Volume 79 fL (80-100); Platelet Count* 182 K/uL (140-440); RDW Coefficient of Variation % 21.2 % (11.5-15.5); Red Blood Count 4.06 m/uL (4.30-5.90); White Blood Count* 3.48 K/uL (4.50-11.00)
[2024-01-09 07:13] LABS: Chloride* 103 mmol/L (96-114); Sodium* 133 mmol/L (135-149)
[2024-01-09 07:15] LABS: Creatinine* 1.8 mg/dL (0.5-1.5); Est. Creatinine Clearance* 39.28; Estimated Glomerular Filt Rate 40 ml/min
[2024-01-09 07:16] LABS: Anion Gap 6 mEq/L (7-15); Blood Urea Nitrogen* 29 mg/dL (7-30); Calcium* 8.1 mg/dL (8.4-10.6); Carbon Dioxide* 24 mmol/L (20-32); Glucose* 100 mg/dL (60-115)
[2024-01-09 07:19] LABS: C Reactive Protein* 3.5 mg/dL (0.5-1.0)
[2024-01-09 07:30] VITALS: PULSE 103
[2024-01-09 07:32] LABS: Procalcitonin* 0.45 ng/mL (<0.50)
[2024-01-09 07:33] LABS: Slide Review Reflex Yes
[2024-01-09 07:36] LABS: Slide Review Acceptable Review (Acceptable)
[2024-01-09 07:48] VITALS: BP 129/93; PULSE 110; RESP 20; TEMP 36.6; O2SAT 93
[2024-01-09 08:00] VITALS: RESP 20; O2SAT 93
[2024-01-09 08:25] VITALS: PULSE 140
[2024-01-09] MEDS: POTASSIUM CHLORIDE 10 MEQ CAPSULE ER 20 MEQ PO (08:25)
[2024-01-09] MEDS: dilTIAZem 180 MG CAP (CD) 360 MG PO (08:25)
[2024-01-09] MEDS: DIGOXIN 125 MCG TABLET PO (08:25)
[2024-01-09] MEDS: FUROSEMIDE 40 MG TABLET PO (08:26)
[2024-01-09] MEDS: DOXYCYCLINE HYCLATE 100 MG PO (08:26)
[2024-01-09] MEDS: METOPROLOL TARTRATE 100 MG TABLET PO (08:26)
--- NOTE | 2024-01-09 09:46 | P.DS_ITS ---
DS: Providers Provider Date Seen: 01/09/24 Date of admission: 01/06/24 20:20 Primary care physician: David Gordon MD Admitting Clinician: Chung Jack MD Attending Physician on discharge: PAULY THORNTON MD [facility] Date of Discharge: 01/09/24 DS: Diagnosis Discharge Diagnosis (1) Atrial flutter with rapid ventricular response: Status: Acute Problem details: -improved. Now on a three drug cocktail for rate control. Discussed with Manny De La Cruz ([facility]) and the risk of bradycardia as these meds reach steady state is moderate. acceptable to discharge at rate that is suboptimal if patient is comfortable and provide close f/u in the outpatient setting. Consider outpatient cardioversion if needed. However patient's care goals are limited interventions while achieving best possible quality of life. -scheduled metoprolol (100mg BID), digoxin (125mcg daily) and Cardizem (240mg qam, 120mg qpm) --eliquis 2.5mg BID (2) Heart failure: Status: Acute Problem details: -no previous heart disease -echo reviewed: preserved LVEF. fluid overload present. -weight down and neutral from this summer. -transfused x 2 units. (3) CHLOÉ (acute kidney injury): Status: Acute Problem details: -baseline 1.1 -admit 1.7 --> 2.0 --> 1.8 at discharge -normal potassium (4) AML (acute myeloid leukemia): Status: Acute Problem details: Diagnosed summer. Declines oncology evaluation and treatment (5) Anemia: Status: Acute Problem details: -Has iron deficiency but primarily has anemia from AML. -Becoming transfusion dependent. -s/p 2 units this hospitalization -no blood loss (6) Hyponatremia: Status: Acute Problem details: -mild (7) Chronic wound of extremity: Status: Acute Problem details: Chronic lateral right leg ulcer. Slowly healing over the last year. Cared for in [facility]. Continue routine outpatient wound care plan (8) Increased thyroid stimulating hormone (TSH) level: Status: Acute Problem details: -probable sick euthyroid -adding total T3 (pending at discharge) -follow labs (9) Tobacco dependence: Status: Acute Problem details: -long lifetime smoker -quit 01/04/24 -thinks the nicotine patch gives him bloody noses (10) COPD (chronic obstructive pulmonary disease): Status: Acute Problem details: -no wheezing -no oxygen requirement -normal gas -mildly productive cough; with increased CRP/Procalcitonin and change in phlegm - will initiate Doxy 100mg BID x 7 days and prn combivent DS: Summary Hospital Course Hospital Course: FINAL DIAGNOSIS/FOLLOW UP ISSUES: AML: Known diagnosis. Patient elects no further treatment. He is becoming transfusion-dependent. He was transfused 2 units of packed red blood cells during this hospitalization. His care goals are to be DNR/DNI during hospitalizations, to focus on quality of life and to avoid large tertiary care centers and invasive procedures. A flutter with RVR: Patient was not interested in transfer for JIMMY and cardioversion. We achieved relative rate control with oral digoxin, metoprolol and Cardizem. Echo revealed hyperdynamic cardiac output and fluid overload. Case was discussed with Dr. [facility] Acute heart failure: Likely related to his tachyarrhythmia. Diuresed. Symptomatic we much improved. Echo reviewed. Discharged on 40 mg of oral furosemide and potassium supplementation. Anticoagulation: Initiated on Eliquis 2.5 mg p.o. b.i.d.. Renally dosed secondary to his CHLOÉ. CHLOÉ: Baseline creatinine is 1.1. Likely related to his tachyarrhythmia and diuretics his peak creatinine was 2.0. This was already improving to 1.8 at discharge. Close clinical follow-up. COPD: Mild exacerbation during this hospitalization. Likely more symptomatic from his fluid overload. However given the elevated inflammatory markers and increased phlegm we treated with oral doxycycline and p.r.n. Combivent inhaler. BRIEF HOSPITAL COURSE: Patient was admitted for 4 days. Synopsis of acute inpatient issues are outlined above. Chronic medical conditions with notable findings outlined above. We achieved a relative rate control that was acceptable. Most of the time he was less than 110 but did bump up to the 140s. It is known that atrial flutter his more difficult to control. He was on a 3 drug cocktail for rate control. He was also initiated on anticoagulation. We offered a transfer for transesophageal echocardiogram and cardioversion, which he declined. We discussed the case with Cardiology. They recommended continuing the oral cocktail of drugs that we initiated and close clinical follow-up. When he presented he was in acute heart failure, he was diuresed nicely. He did develop in CHLOÉ but this was improving at discharge. He was also treated for a mild exacerbation of chronic obstructive pulmonary disease. We addressed his care goals as it regards his leukemia and chronic illnesses. He was clear that he did not want consultation with Oncology and he wanted to avoid any transfers tertiary care centers or invasive procedures. He was open to medications to help him achieve a quality of life med allows him to be at home, pursue projects in his garage and enjoy his family. DISCHARGE MEDICATIONS: See Reconciled list - SIGNIFICANT CHANGES: Three drugs for rate control which include metoprolol, diltiazem, digoxin Anticoagulation Diuretic with potassium Short-term antibiotic Specific instructions to the patient and follow-up are outlined below. REVIEW OF SYSTEMS No new chest pain or dyspnea Pain controlled No voiding difficulties Tolerating diet challenge PHYSICAL EXAM: CONSTITUTIONAL: Alert, independent with in his room. Insightful. Had notes for questions. VITAL SIGNS: see record. HEENT: Normocephalic, atraumatic. PERRL, EOMI, conjunctivae pink, no scleral icterus. Ears and nose externally normal. Pharynx normal. NECK: No JVD. No carotid bruit, no thyromegaly, no adenopathy. CHEST: Clear to auscultation bilaterally. HEART: S1 and S2 normal. Edema 1+. ABDOMEN: Soft, nontender. Normal bowel sounds. MUSCULOSKELETAL: No gross joint deformity or swelling. NEURO: Cranial nerves intact. Grossly intact. No asymmetric findings. SKIN: No rashes, petechiae, concerning changes PSYCHIATRIC: Mood euthymic. DISPOSITION: Home with family Time spent on discharge 37 minutes. Status at Discharge Functional status at discharge: independent ambulation Overall status at discharge: patient is progressing back to baseline Time Spent with Patient Time attestation: Total time spent providing and/or coordinating discharge services: Time spent: Greater than 30 minutes Exam Const: Vital Signs, click to edit/add: Vital Signs - 24 hr 01/08/24 11:51 01/08/24 15:00 01/08/24 15:00 Temperature 97.7 F Pulse Rate 72 Pulse Rate [Pulse Oximeter] 60 72 Respiratory Rate 22 20 Blood Pressure [Le ft Arm] 101/66 Blood Pressure [Ri ght Arm] Pulse Oximetry 94 Oxygen Delivery Me thod Room Air 01/08/24 15:00 01/08/24 15:00 01/08/24 19:00 Temperature 97.8 F 97.6 F Pulse Rate Pulse Rate [Pulse Oximeter] 73 94 Respiratory Rate 20 20 22 Blood Pressure [Le ft Arm] Blood Pressure [Ri ght Arm] 127/78 125/69 Pulse Oximetry 92 92 93 Oxygen Delivery Me thod Room Air Room Air Room Air 01/08/24 23:00 01/08/24 23:00 01/08/24 23:19 Temperature Pulse Rate 71 Pulse Rate [Pulse Oximeter] 71 Respiratory Rate 16 20 Blood Pressure [Le ft Arm] Blood Pressure [Ri ght Arm] Pulse Oximetry Oxygen Delivery Me thod Room Air 01/09/24 02:29 01/09/24 05:12 01/09/24 07:48 Temperature 97.8 F Pulse Rate Pulse Rate [Pulse Oximeter] 71 125 H 110 H Respiratory Rate 20 20 Blood Pressure [Le ft Arm] Blood Pressure [Ri ght Arm] 124/91 H 129/93 H Pulse Oximetry 94 93 Oxygen Delivery [place] thod Room Air Room Air Room Air 01/09/24 08:00 01/09/24 08:25 Temperature Pulse Rate 140 H Pulse Rate [Pulse Oximeter] Respiratory Rate 20 Blood Pressure [Le ft Arm] Blood Pressure [Ri ght Arm] Pulse Oximetry 93 Oxygen Delivery [place] thod Room Air DS: Data Data Completed and Pending Labs on day of discharge: Labs from last 24 hours 01/09/24 06:30 WBC 3.48 L RBC 4.06 L Hgb 9.4 L Hct 31.9 L MCV 79 L MCH 23 L MCHC 30 L RDW Coeff of Aguilar 21.2 H Plt Count 182 Neut % (Auto) 34.0 L Lymph % (Auto) 38.0 [place] % (Auto) 23.0 H Eos % (Auto) 1.0 Baso % (Auto) 2.0 Neut # (Auto) 1.20 L Lymph # (Auto) 1.30 [place] # (Auto) 0.80 Eos # (Auto) 0.00 Baso # (Auto) 0.10 Abs Immat Gran (auto) 0.10 Imm/Tot Granulo (auto) 3.0 Diff Slide Review Acceptable Review Sodium 133 L Potassium 4.0 Chloride 103 Carbon Dioxide 24 Anion Gap 6 L BUN 29 Creatinine 1.8 H Estimated Creat Clear 39.28 Estimated GFR 40 Glucose 100 Calcium 8.1 L C-Reactive Protein 3.5 H Procalcitonin 0.45 Preliminary micro results at discharge 01/07/24 08:55 Blood Culture - Preliminary Blood NO GROWTH AFTER 48 HOURS Discharge Plan Discharge Disposition: Home w/ Parent or Adult Date of Admission: 01/06/24 20:20 Attending Provider on Discharge: Pauly Thornton Primary Care Provider: David Gordon Anticipated Discharge Date/Time: 01/09/24 09:20 Discharge Medications: New furosemide 40 mg Tablet 40 mg PO DAILY@0800 Qty: 30 0RF digoxin 125 mcg (0.125 mg) Tablet 125 mcg PO DAILY Qty: 30 0RF doxycycline hyclate 100 mg Tablet 100 mg PO BID Qty: 8 0RF Eliquis 5 mg Tablet 2.5 mg PO BID Qty: 60 0RF metoprolol tartrate 100 mg Tablet 100 mg PO BID Qty: 60 0RF Eliquis 5 mg Tablet 2.5 mg PO Q12H Qty: 60 0RF diltiazem HCl 240 mg capsule,ext.rel 24h degradable 240 mg PO DAILY Qty: 30 0RF Rx Instructions: Take one capsule (240mg) each morning. You will take a 120mg dose at night. diltiazem HCl [DILT-XR] 120 mg capsule,ext.rel 24h degradable 120 mg PO HS Qty: 30 0RF Rx Instructions: Take one capsule, 120mg, at night. Combivent Respimat 20-100 mcg/actuation mist 1 puff inhalation Q6H PRN (Reason: shortness of breath or wheezing) Qty: 4 0RF potassium chloride 20 mEq tablet extended release 20 meq PO BID Qty: 60 0RF Continued hydrocodone-acetaminophen 5-325 mg tablet 1 tab PO TID PRN (Reason: pain) Qty: 30 0RF Discharge Orders: Discharge Order (Routine); Ordered 01/09/24 Ordered By: Pauly Thornton Additional Instructions: ATRIAL FLUTTER (Fast Heart Rate) Goal is less than 110 beats per minute Metoprolol ? 100mg EACH MORNING ? 100MG AT NIGHT Diltiazem XR ? 240MG EACH MORNING? 120MG AT NIGHT Digoxin ? 125MCG EACH MORNING Stroke Prevention from ATRIAL FLUTTER Eliquis ? 2.5 MG EACH MORNING? 2.5MG AT NIGHT HEART FAILURE PREVENTION (fluid on the lungs, trouble breathing, swelling of the ankles) Lasix? 40MG EACH MORNING Potassium ? 20 mEQ EACH MORNING? 20MG EACH NIGHT You will have a few days left of your antibiotic. I?m sending an inhaler as well for you to use as needed. Okay to take Hydrocodone when needed for pain Okay to take homeopathic vitamins and supplements for your Leukemia Activity Level: Activity as Tolerated Discharge Diet: Regular Follow Up Appointments: David Gordon MD [Primary Care Provider] - (3-5 DAYS with labs before (CBC, BMP)) Forms: MyHealth Info Instructions
[2024-01-09] MEDS: APIXABAN 5 MG TABLET 2.5 MG PO (10:11)
--- NOTE | 2024-01-09 13:04 | PC.NURSE ---
Discharge: The patient discharged home with his sister this AM. The patient was extensively educated on his medications, HF management, and S/S to watch for that would warrant him to come back in for. Reports some SOB with exertion and reports feeling fatigued. I explained that this is most likely due to his HR being so high. The patients HR is noted to increase with activity into the 130-[address] Caldera after speaking with cardiology they stated that until the medications begin to set in his HR may fluctuate, I relayed this message to the patient. LLE Wound is covered with Tubi ob nurse upon discharge. All of the patients medications are new, I went over them in depth. A daily med sheet was created and printed off for the patient. Maureen BAXTER BSN
[2024-01-09 14:49] LABS: Total T3 65 ng/dL (80-200)
== END 2024-01-09 12:00 | disposition home or self-care (01) | DRG 308 ==
LOC: ED 18:41 → MEDSURG 19:46
PROVIDERS: Family Medicine; Admitting Provider Family Medicine; Emergency Provider Emergency Medicine; PCP Internal Medicine; Visit Provider Family Medicine
DX: I48.92 Unspecified atrial flutter (principal); I50.31 Acute diastolic (congestive) heart failure; C92.00 Acute myeloblastic leukemia, not having achieved remission; L97.219 Non-pressure chronic ulcer of right calf with unspecified severity; E87.1 Hypo-osmolality and hyponatremia; N17.9 Acute kidney failure, unspecified; J44.1 Chronic obstructive pulmonary disease with (acute) exacerbation; D63.8 Anemia in other chronic diseases classified elsewhere; D50.9 Iron deficiency anemia, unspecified; R00.0 Tachycardia, unspecified; F17.210 Nicotine dependence, cigarettes, uncomplicated; E07.81 Sick-euthyroid syndrome
CPT/HCPCS: 36415; 36430; 71045; 71046; 80048; 80069; 80076; 81001; 82803; 83605; 83735; 83880; 84145; 84439; 84443; 84480; 84484; 85025; 85027; 86140; 86850; 86900; 86901; 86922; 87040; 87086; 87631; 93005; 93306; 97602; 99284; 99285; 99291; G0463; A9270; J1160; J1940; J7030; P9016

== ENCOUNTER 2024-01-13 14:57 | Outpatient (CLI) | payer MEDICARE, BC, SELFPAY ==
--- OUTSIDE RECORDS SUMMARY | 2024-01-13 15:01 | XMS_ITS | Clinical Summary ---
Author Organization [facility] Address [place], [place] [address] Care Team Providers Care Knitting Machine Operator Automatic Name Role Phone CarleneElvira james Stefano RN Unavailable Radha Edouard MD Unavailable Lizeth Alarcon OFFICE HELPER Unavailable David Ambrocio MD Primary Care Provider Jaylon RaymondW Unavailable [phone] [facility] Unavailable Allergies Active Allergy Reactions [...] Encounters Date Type Department Care Team Description 01/09/2024 Telephone [facility] [address] [place] [phone] Lizeth Alarcon, OFFICE HELPER Appointment 01/07/2024 9:55 AM CDT Ancillary Procedure [facility] [place] [facility] [address] [place] [address] 01/06/2024 Telephone [facility] [place] [address] [facility] [address] [place] [address] Manny Reynoso MD atrial flutter 01/02/2024 Orders Only [facility] [address] [place] [address] Lizeth Alarcon, OFFICE HELPER <No scans attached> 12/31/2023 8:55 AM CDT - 12/31/2023 11:59 PM CDT Hospital Encounter [facility] [address] [place] [address] 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) 12/31/2023 Travel 12/30/2023 Telephone [facility] [address] [place] [address] Lizeth Alarcon, OFFICE HELPER 12/17/2023 7:23 AM CDT - 12/17/2023 11:59 PM CDT Hospital Encounter [facility] [address] [address] 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); Cellulitis of right lower extremity; Pancytopenia (HC) 12/17/2023 Travel 12/15/2023 11:05 AM CDT - 12/15/2023 11:59 PM CDT Hospital Encounter [facility] [address] [place] [address] 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) 12/15/2023 Telephone [facility] [address] [place] [address] Lizeth Alarcon, OFFICE HELPER Appointment 12/15/2023 Travel 12/05/2023 Lab Requisition [facility] [phone] Unknown, Doctor 11/19/2023 11:15 AM CDT Office Visit [facility] [address] [facility] [address] Lizeth Alarcon, OFFICE HELPER Follow Up (Pancytopenia (HC) [D61.818]//) 11/19/2023 Travel 11/19/2023 Telephone [facility] [address] [facility] [address] Lizeth Alarcon, OFFICE HELPER Appointment 11/12/2023 8:50 AM CDT - 11/12/2023 11:59 PM CDT Hospital Encounter [facility] [address] [place] [address] Pancytopenia (HC) [D61.818] 11/12/2023 Travel 10/28/2023 Orders Only [facility] Scanner 1 scan: (1-Ord) INCOMING RECORDS-CT, [facility], 10/28/2023 10/28/2023 Orders Only [facility] Scanner 1 scan: (1-Ord) INCOMING RECORDS-LABS, [facility], 10/28/2023 10/28/2023 Orders Only [facility] Scanner 1 scan: (1-Ord) INCOMING RECORDS-LABS, [facility], 10/28/2023 10/27/2023 Telephone [facility] [place] [facility] [place] [address] [address] [place], [facility] Referral (AML) from Last 3 Months [...] Date Smoking Tobacco: Every Day Cigarettes 1 55.8 Started: 1968 Passive Smoke Exposure: Current Smokeless [...] Procedure Name Priority Date/Time Associated Diagnosis Comments ECHO TTE COMPLETE WO CONTRAST Routine 01/07/2024 11:45 AM CDT Atrial flutter with rapid ventricular response (HC) Heart failure (HC) BLOOD BANK EXTRA LAVENDER TOP Today 12/31/2023 [...] remission (HC) TRANSFUSE RBC (NURSE COMMUNICATION ORDER) [facility] 12/17/2023 8:57 AM CDT 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) Cellulitis of right lower extremity Pancytopenia (HC) RBC W/O TYPE & SCREEN [facility] 12/17/2023 8:39 AM CDT 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 Accession#: ?? [id number] : ?1955 68 years Study Date: ?? 01/07/2024 11:11:16 AM Gender: M ?BP: ? 113/72 mmHg Height: 175.00 cm ?BSA: ?2.02 m? ? ? Weight: 86.00 kg ? Tech: ? MCK ? Referring MD: TRUONG JACK Site: ? [facility] Reading Location: [facility] Patient Location: Inpatient. Procedure: 2D, Color Doppler and Spectral Doppler. Indication for study: Aflutter, with RVR, Heart Failure Cardiac Rhythm: Irregular.Study quality: Fair. Final Impressions: 1. Hyperdynamic LVEF [65-70%]. Mild concentric LVH. 2. Preserved RV function. 3. No significant valvular disease. 4. Moderate SAMI. 5. Dilated IVC with abnormal respiratory variability. 6. Large left pleural effusion. 7. Trivial pericardial effusion. 8. Liver cysts. Chamber Sizes and Function Mild concentric left ventricular hypertrophy. Left atrial size is moderately enlarged. Right ventricular cavity size is normal, global systolic RV function is normal. The right atrium is moderately enlarged. Right atrial volume index is 39 ml/m? ? ?. Right atrial area is 24 cm? ? ?. The pulmonary artery is not well visualized. The sinus of Valsalva is normal sized. The ascending aorta is normal sized. Valves, RV Pressures and Diastolic Function The aortic valve is normal in structure and trileaflet, no stenosis and no regurgitation. The mitral valve is normal in structure, no mitral regurgitation. Indeterminate pattern of LV diastolic filling. The tricuspid valve is normal in structure. Tricuspid regurgitation is mild regurgitation. Unable to assess right ventricular systolic pressure. The pulmonic valve is not well visualized. Trace pulmonary regurgitation. Masses, Effusion, Shunts There is trivial pericardial effusion. The inferior vena cava is dilated, respiratory size variation less than 50%. No left to right shunting was detected by limited color flow Doppler interrogation of the interatrial septum. MEASUREMENTS AND CALCULATIONS 2-D Measurements and LV Function: LVID (d) 4.4 cm LV FS% (2D) ?? 47 % LVID (s) 2.3 cm LVOT diameter 2.4 cm IVS (d) ??1.3 cm HR ?69 bpm LVPW (d) 1.2 cm LA Vol index ??33 ml/m2 Ao Sinus 3.3 cm RA Vol index ??39 ml/m2 Asc Ao ?? 3.4 cm RA area ? 24 cm? ? ? LA ? 4.6 cm RV Max 4C (d) 3.8 cm Diastology: Mitral ?Tissue Doppler E Peak 1.7 m/s ??e', Lateral ?0.14 m/s A Peak 0.6 m/s E/A ?2.7 DT ? 144 msec Aortic Valve: Vmax ? 1.3 m/s ??DANIEL (V) ?? 3.37 cm? ? ? VTI ?0.26 m ?? DANIEL (I) ?? 3.47 cm? ? ? LVOT V max 1.0 m/s ??Max PG ?7 mmHg LVOT VTI ?? 0.21 m ?? Mean PG ?? 3 mmHg SV ? 90 ml ?Dim Index 0.80 SV index ?? 45 ml/m? ? ? CO ?6.2 l/min ?CI ?3.1 l/min/m? ? ? Mitral Valve: MVA ?5.3 cm? ? ? MV P 1/2 42 msec Tricuspid Valve and estimated PA pressures: TAPSE 2.1 cm . This study was interpreted by an [facility] accredited facility. CC: [facility] (med records) [facility], Med[facility]Surg - IP [facility]. ??Final ?? Procedure Note Brent Pires MD - 01/07/2024 ECHOCARDIOGRAM JACOBY ALBA : 1955 68 years Study Date: 01/07/2024 11:11:16 AM Gender: M BP: 113/72 mmHg Height: 175.00 cm BSA: 2.02 m? ? ? Weight: 86.00 kg Tech: LETI Referring MD: TRUONG JACK Site: [facility] Reading Location: [place] Patient Location: Inpatient. Procedure: 2D, Color Doppler and Spectral Doppler. Indication for study: Aflutter, with RVR, Heart Failure Cardiac Rhythm: Irregular.Study quality: Fair. Final Impressions: 1. Hyperdynamic LVEF [65-70%]. Mild concentric LVH. 2. Preserved RV function. 3. No significant valvular disease. 4. Moderate SAMI. 5. Dilated IVC with abnormal respiratory variability. 6. Large left pleural effusion. 7. Trivial pericardial effusion. 8. Liver cysts. Chamber Sizes and Function Mild concentric left ventricular hypertrophy. Left atrial size ismoderately enlarged. Right ventricular cavity size is normal, globalsystolic RV function is normal. The right atrium is moderately enlarged.Right atrial volume index is 39 ml/m? ? ?. Right atrial area is 24 cm? ? ?. Thepulmonary artery is not well visualized. The sinus of Valsalva is normalsized. The ascending aorta is normal sized. Valves, RV Pressures and Diastolic Function The aortic valve is normal in structure and trileaflet, no stenosis and noregurgitation. The mitral valve is normal in structure, no mitralregurgitation. Indeterminate pattern of LV diastolic filling. Thetricuspid valve is normal in structure. Tricuspid regurgitation is mildregurgitation. Unable to assess right ventricular systolic pressure. Thepulmonic valve is not well visualized. Trace pulmonary regurgitation. Masses, Effusion, Shunts There is trivial pericardial effusion. The inferior vena cava is dilated,respiratory size variation less than 50%. No left to right shunting wasdetected by limited color flow Doppler interrogation of the interatrialseptum. MEASUREMENTS AND CALCULATIONS 2-D Measurements and LV Function: LVID (d) 4.4 cm LV FS% (2D) 47 % LVID (s) 2.3 cm LVOT diameter 2.4 cm IVS (d) 1.3 cm HR 69 bpm LVPW (d) 1.2 cm LA Vol index 33 ml/m2 Ao Sinus 3.3 cm RA Vol index 39 ml/m2 Asc Ao 3.4 cm RA area 24 cm? ? ? LA 4.6 cm RV Max 4C (d) 3.8 cm Diastology: Mitral Tissue Doppler E Peak 1.7 m/s e', Lateral 0.14 m/s A Peak 0.6 m/s E/A 2.7 DT 144 msec Aortic Valve: Vmax 1.3 m/s DANIEL (V) 3.37 cm? ? ? VTI 0.26 m DANIEL (I) 3.47 cm? ? ? LVOT V max 1.0 m/s Max PG 7 mmHg LVOT VTI 0.21 m Mean PG 3 mmHg SV 90 ml Dim Index 0.80 SV index 45 ml/m? ? ? CO 6.2 l/min CI 3.1 l/min/m? ? ? Mitral Valve: MVA 5.3 cm? ? ? MV P 1/2 42 msec Tricuspid Valve and estimated PA pressures: TAPSE 2.1 cm . This study was interpreted by an [facility] accredited facility. CC: [facility] (med records) [facility], Med[facility]Surg - IP [facility]. Final Truong Jack MD ECHO ORD * CWS PATH REVIEW HEMATOLOGY (12/31/2023 9:03 AM CDT) Only the most recent of2 resultswithin the time period is included. PATH COMMENT Reviewed by KT on 01/01/2024 01/01/2024 2:08 PM CDT [facility] Blood BLOOD SPECIMEN / Unknown Venipuncture / Unknown 12/31/2023 9:03 AM CDT 12/31/2023 9:06 AM CDT Narrative [facility] - 01/01/2024 2:08 PM CDT This procedure was originally ordered at [facility]. This procedure was originally ordered at [facility]. This procedure was originally ordered at [facility]. Lizeth Alarcon NP LABORATORY [facility] [address] [place] [address], [place] * (ABNORMAL) CBC WITH AUTO DIFFERENTIAL (12/31/2023 9:03 AM CDT) Only the most recent of3 resultswithin the time period is included. WHITE BLOOD COUNT 3.8(L) 4.5 - 11.0 thou/cu mm 12/31/2023 9:53 AM [facility] RED BLOOD COUNT 3.66(L) 4.30 - 5.90 mil/cu mm 12/31/2023 9:53 AM [facility] HEMOGLOBIN 8.0(L) 13.5 - 17.5 g/dL 12/31/2023 9:53 AM [facility] HEMATOCRIT 28.6(L) 37.0 - 53.0 % 12/31/2023 9:53 AM [facility] MCV 78(L) 80 - 100 fL 12/31/2023 9:53 AM [facility] MCH 21.9(L) 26.0 - 34.0 pg 12/31/2023 9:53 AM [facility] MCHC 28.0(L) 32.0 - 36.0 g/dL 12/31/2023 9:53 AM [facility] RDW 21.8(H) 11.5 - 15.5 % 12/31/2023 9:53 AM [facility] PLATELET COUNT 291 140 - 440 thou/cu mm 12/31/2023 9:53 AM [facility] MPV 12/31/2023 9:53 AM [facility] Comment:Unable to be determi amada Blood BLOOD SPECIMEN / Unknown Venipuncture / Unknown 12/31/2023 9:03 AM CDT 12/31/2023 9:06 AM CDT [facility] - 12/31/2023 9:53 AM CDT This procedure was originally ordered at [facility]. This procedure was originally ordered at [facility]. This procedure was originally ordered at [facility]. Lizeth Alarcon NP HEMATOLOGY Performing Organization Address [facility]/ZIP Co de Phone Number [facility] [address] [place] [address] * (ABNORMAL) RED CELL MORPHOLOGY (12/31/2023 9:03 AM CDT) Only the most recent of3 resultswithin the time period is included. ELLIPTOCYTES Few 12/31/2023 9:53 AM CDT [facility] POLYCHROMASIA Slight 12/31/2023 9:53 AM CDT [facility] SCHISTOCYTES Few 12/31/2023 9:53 AM CDT [facility] TEARDROP CELLS Few 12/31/2023 9:53 AM T [facility] RBC COMMENT Present(A) RBC morphology appears normal, RBC morphology within normal limits for newborns. 12/31/2023 9:53 AM CDT [facility] Blood BLOOD SPECIMEN / Unknown Venipuncture / Unknown 12/31/2023 9:03 AM CDT 12/31/2023 9:06 AM CDT Narrative [facility] - 12/31/2023 9:53 AM CDT This procedure was originally ordered at [facility]. This procedure was originally ordered at [facility]. This procedure was originally ordered at [facility]. Lizeth Alarcon NP HEMATOLOGY Performing Organization Address [facility]/ZIP Co de Phone Number [facility] [address] [place] [address] * PLATELET ESTIMATE (12/31/2023 9:03 AM CDT) Only the most recent of3 resultswithin the time period is included. Pathologist [facility] PLATELET ESTIMATE Adequate Adequate, No estimate 12/31/2023 9:53 AM [facility] Blood BLOOD SPECIMEN / Unknown Venipuncture / Unknown 12/31/2023 9:03 AM CDT 12/31/2023 9:06 AM CDT [facility] - 12/31/2023 9:53 AM CDT This procedure was originally ordered at [facility]. This procedure was originally ordered at [facility]. This procedure was originally ordered at [facility]. Lizeth Alarcon NP HEMATOLOGY [facility] [address] [place] [address] * (ABNORMAL) MANUAL DIFFERENTIAL (12/31/2023 9:03 AM CDT) Only the most recent of3 resultswithin the time period is included. Pathologist [facility] % NEUTROPHILS 45.0 % 12/31/2023 9:53 AM [facility] % LYMPHOCYTES 34.0 % 12/31/2023 9:53 AM [facility] % MONOCYTES 17.0 % 12/31/2023 9:53 AM [facility] % EOSINOPHILS 0.0 % 12/31/2023 9:53 AM [facility] % BASOPHILS 0.0 % 12/31/2023 9:53 AM [facility] % METAMYELOCYTES 4.0(H) <0.1 % 12/31/19 9:53 AM [facility] NEUTROPHILS ABSOLUTE 1.7 1.7 - 7.0 thou/cu mm 12/31/2023 9:53 AM [facility] LYMPHOCYTES ABSOLUTE 1.3 0.9 - 2.9 thou/cu mm 12/31/2023 9:53 AM [facility] MONOCYTES ABSOLUTE 0.6 <0.9 thou/cu mm 12/31/2023 9:53 AM [facility] EOSINOPHILS ABSOLUTE 0.0 <0.5 thou/cu mm 12/31/2023 9:53 AM CDT [facility] BASOPHILS ABSOLUTE 0.0 <0.3 thou/cu mm 12/31/2023 9:53 AM CDT [facility] ABSOLUTE METAMYELOCYTES 0.2(H) <=0.0 thou/cu mm 12/31/2023 9:53 AM T [facility] ABS NRBC 0.1 thou /cu mm 12/31/2023 9:53 AM T [facility] MANUAL NRBC PER 100 CELLS 3.0 /100 CELLS 12/31/2023 9:53 AM T [facility] Blood BLOOD SPECIMEN / Unknown Venipuncture / Unknown 12/31/2023 9:03 AM CDT 12/31/2023 9:06 AM CDT Narrative [facility] - 12/31/2023 9:53 AM CDT This procedure was originally ordered at [facility]. This procedure was originally ordered at [facility]. This procedure was originally ordered at [facility]. Lizeth Alarcon NP HEMATOLOGY Performing Organization Address City/[facility] Co de Phone Number [facility] [address] [place] [address] * BLOOD BANK EXTRA LAVENDER TOP (12/31/2023 9:03 AM CDT) Blood BLOOD SPECIMEN / Unknown Venipuncture / Unknown 12/31/2023 9:03 AM CDT 12/31/2023 9:07 AM CDT Doctor Unknown BLOOD BANK Performing Organization Address City/[facility]/ZIP Co de Phone Number [facility] [address] [place] [address] * TRANSFUSE RBC (NURSE COMMUNICATION ORDER) (12/17/2023 11:09 AM CDT) Blood BLOOD SPECIMEN / Unknown Lizeth Alarcon NP NURSING BLOOD BANK * RBC W/O TYPE & SCREEN (12/17/2023 8:39 AM CDT) QUANTITY 1 12/17/2023 8:39 AM CDT [facility] BLOOD BANK Blood BLOOD SPECIMEN / Unknown 12/17/2023 8:30 AM CDT Lizeth Alarcon OFFICE HELPER BLOOD BANK Performing Organization Address City/[facility] Co de Phone Number [facility] BLOOD BANK [address] [place] [address] * RED BLOOD CELLS EA UNIT (12/15/2023 11:15 AM CDT) Pathologist [facility] CROSSMATCH Compatible Compatible [facility] BLOOD BANK PRODUCT BLOOD TYPE O Rh Negative [facility] BLOOD BANK PRODUCT ID NUMBER [id number] [facility] BLOOD BANK PRODUCT STATUS Transfused [facility] BLOOD BANK PRODUCT DESCRIPTION RBC -1 LR [facility] BLOOD BANK PRODUCT CODE [id number] [facility] BLOOD BANK ISSUE DATE/TIME 12/17/23 08:52 [facility] BLOOD BANK Lizeth Alarcon OFFICE HELPER BLOOD BANK Performing Organization Address [facility] Co de Phone Number [facility] BLOOD BANK [address] [place] [address] * TYPE & SCREEN (12/15/2023 11:13 AM CDT) ABORH O Rh Negative 12/15/2023 1:13 PM CDT [facility] BLOOD BANK ANTIBODY SCREEN Negative Negative 12/15/2023 1:13 PM CDT [facility] BLOOD BANK SPECIMEN EXPIRATION DATE/TIME 12/18/23 23:59 12/15/2023 1:13 PM CDT [facility] BLOOD BANK Blood BLOOD SPECIMEN / Unknown Venipuncture / Unknown 12/15/2023 11:13 AM CDT 12/15/2023 11:20 AM CDT Lizeth Alarcon OFFICE HELPER BLOOD BANK Performing Organization Address [facility] de Phone Number [facility] BLOOD BANK [address] [place] [address] * (ABNORMAL) REFERRAL SUSCEPTIBILITY (12/02/2023 3:40 PM CDT) CULTURE RESULT(A) 12/08/2023 10:57 AM CDT [facility] CULTURE Streptococcus group G 12/08/2023 10:57 AM CDT [facility] Comment:This isolate is pres umed to [...] R Doctor Unknown MICROBIOLOGY Performing Organization Address [facility] de Phone Number [facility] [address] * PERIPHERAL BLD MORPHOLOGY (11/12/2023 8:56 AM CDT) Case Report Special Hematology Report ? Case: [id number] ? Authorizing Provider: ??Radha Edouard MD ?Collected: ? 11/12/2023 0856 ? Ordering Location: ? [facility] ? Received: ?11/12/2023 0857 ? [facility] ? Pathologist: ? Alfonso Ramesh, ? MD ? Specimen: ?Blood ? 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 6.5% BLASTS identified 2. 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 Moderate microcytic hypochromic anemia, suggestive of iron deficiency anemia 4. See comment 11/15/2023 1:55 PM CDT [facility] Comment Since the last described peripheral blood morphology performed with the bone marrow biopsy 09/25/2023 ([id number]), the blast count has remained essentially the [...] also reviewed by Mari Armijo MT, MS ([facility]). 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 Chromosome analysis revealed a +8 mutation. Myeloid NGS was positive for ASXL1, BRAF, CEBPA, IDH1, and SRSF2 mutations. 11/12/23 08:56 CREATININE: 1.44 (H) eGFR: ? 53 (L) 11/15/2023 1:55 PM CDT [facility] CBC and Differential HEMATOLOGY PARAMETERS Tested at: ??[facility] ? RESULTS ??EXPECTED VALUES WBC: ? 3.1 ?4.5-67o2296/cumm ?DECREASED RBC: ? 3.49 ? 4.30-5.90 mil/cumm ??DECREASED HGB: ? 8.0 ?13.5-17.5 gm/di ? DECREASED HCT: ? 27.7 ? 37-53% ?DECREASED MCV: ? 79.0 ? 80-100 fl ? MICROCYTIC MCH: ? 22.9 ? 26-34 pg ?DECREASED MCHC: ?28.9 ? 32-36 gm/dl ? HYPOCHROMIC RDW: ? 22.3 ? 11.5-15.5% ?ELEVATED PLT: ? 357 ?140-625x8474/uL MPV: ? Unable to be determined ? [...] [facility] Additional Information Interpreted at [facility] - [address], [place] [address] 11/15/2023 1:55 PM CDT [facility] Blood BLOOD SPECIMEN / Unknown [...] Rfl: This procedure was originally ordered at [facility]. Radha Edouard MD HEMATOLOGY [facility] [address] [place] [address], * (ABNORMAL) LD,TOTAL (11/12/2023 8:56 AM CDT) LD,TOTAL 411(H) 135 - 225 IU/L 11/12/2023 10:39 AM CDT [facility] Blood BLOOD SPECIMEN / Unknown Butterfly / Unknown 11/12/2023 8:56 AM CDT 11/12/2023 8:57 AM CDT Radha Edouard MD CHEMISTRY [facility] [address] [place] [address] * (ABNORMAL) RETICULOCYTES (11/12/2023 8:56 AM CDT) RETIC% 6.6(H) 0.5 - 1.5 % 11/12/2023 1:15 PM CDT [facility] RETIC (ABSOLUTE) 0.24(H) 0.03 - 0.08 mil/cu mm 11/12/2023 1:15 PM CDT [facility] Blood BLOOD SPECIMEN / Unknown Butterfly / Unknown 11/12/2023 8:56 AM CDT 11/12/2023 8:57 AM CDT Narrative [facility] - 11/12/2023 1:15 PM CDT This procedure was originally ordered at [facility]. Radha Edouard MD HEMATOLOGY [facility] [address] [place] [address], * (ABNORMAL) HEPATIC FUNCTION PANEL (11/12/2023 8:56 AM CDT) ALBUMIN 2.9(L) 4.0 - 4.9 g/dL 11/12/2023 9:43 AM CDT [facility] PROTEIN,TOTAL 10.2(H) 6.0 - 8.0 g/dL 11/12/2023 9:43 AM CDT [facility] BILIRUBIN,TOTAL 0.5 0.0 - 1.2 mg/dL 11/12/2023 9:43 AM CDT [facility] BILIRUBIN,DIRECT <0.2 0.0 - 0.3 mg/dL 11/12/2023 9:43 AM CDT [facility] BILIRUBIN,INDIRE CT 11/12/2023 9:43 AM CDT [facility] Comment:Unable to calculate, Direct Bili <0.2 ALK PHOSPHATASE 87 40 - 129 IU/L 11/12/2023 9:43 AM [facility] ALT (SGPT) <5(L) 10 - 50 IU/L 11/12/2023 9:43 AM [facility] AST (SGOT) 46 10 - 50 IU/L 11/12/2023 9:43 AM [facility] Blood BLOOD SPECIMEN / Unknown Butterfly / Unknown 11/12/2023 8:56 AM CDT 11/12/2023 8:57 AM CDT Radha Edouard MD CHEMISTRY [facility] [address] [place] [address] * (ABNORMAL) BASIC METABOLIC PANEL (11/12/2023 8:56 AM CDT) SODIUM 132(L) 136 - 145 mmol/L 11/12/2023 9:28 AM [facility] POTASSIUM 4.0 3.5 - 5.1 mmol/L 11/12/2023 9:28 AM [facility] CHLORIDE 101 98 - 107 mmol/L 11/12/2023 9:28 AM [facility] CO2,TOTAL 22 22 - 29 mmol/L 11/12/2023 9:28 AM [facility] ANION GAP 9 5 - 18 11/12/2023 9:28 AM [facility] GLUCOSE 98 70 - 99 mg/dL 11/12/2023 9:28 AM [facility] CALCIUM 8.1(L) 8.8 - 10.2 mg/dL 11/12/2023 9:28 AM [facility] BUN 17 8 - 23 mg/dL 11/12/2023 9:28 AM [facility] CREATININE 1.44(H) 0.70 - 1.20 mg/dL 11/12/2023 9:28 AM CDT [facility] BUN/CREAT RATIO 12 10 - 20 9:28 AM CDT [facility] eGFR 53(L) >90 mL/min/1.7 3m2 11/12/2023 9:28 AM CDT [facility] Comment:As of 2021, eG FR [...] 8:57 AM CDT Radha Edouard MD CHEMISTRY [facility] [address] [place] [address] * SCAN CORRESP-LABORATORY RESULTS (10/28/2023 12:00 AM [...] Reactive Non Reactive 10/11/2022 12:08 PM CDT [facility] Blood BLOOD SPECIMEN / Unknown Venipuncture / Unknown 10/09/2022 9:06 AM CDT 10/09/2022 9:[address] [facility] - 10/11/2022 12:08 PM CDT Performed at: ??01 - [facility] [address] [place] [address] ??[id number] Inventory Control Manager: Zane Rebolledo MD, Phone: ??[phone] Radha Edouard MD LABORATORY [facility] ([facility]) [facility] [place] [address], * CT CHEST ABDOMEN PELVIS W (09/19/2022 [...] - 199 mg/dL 09/09/2022 12:53 PM T [facility] TRIGLYCERIDES 77 <150 mg/dL 09/09/2022 12:53 PM T [facility] HDL CHOLESTEROL 34(L) >40 mg/dL 12:53 PM CDT [facility] NON-HDL CHOLESTEROL 115 <145 mg/dl 09/09/2022 12:53 PM CDT [facility] CHOL/HDL RATIO 4.38 <4.50 09/09/2022 12:53 PM CDT [facility] LDL CHOLESTEROL 100 <=130 mg/dL 09/09/2022 12:53 PM T [facility] VLDL CHOLESTEROL 15 <=30 mg/dL 09/09/2022 12:53 PM CDT [facility] PROVIDER ORDERED STATUS RANDOM 09/09/2022 12:53 PM T [facility] Blood BLOOD SPECIMEN / Unknown Butterfly / Unknown 09/09/2022 12:06 PM CDT 09/09/2022 12:07 PM CDT David Ambrocio MD CHEMISTRY Performing Organization Address City/State/[facility] Co de Phone Number [facility] [address] [place] [address] from Last 3 Months or Most Recently [...] Discussion: Reviewed Preferences wit h Care Teams Knitting Machine Operator Automatic Relationship Specialty Start Date End Date David Ambrocio MD [address] [place] [address] PCP - General Family Practice 11/27/22 Elvira Morin RN [address] [place] [address] Nurse Navigator - Oncology Registered Nurse 10/18/22 Radha Edouard MD [address] [place] [address] Medical Oncologist Hematology and Oncology 11/21/22 Lizeth Alarcon NP [address] [place] [address] Nurse Practitioner Hematology and Oncology 11/21/22 Jaylon Raymond LSW [address] [place] [address] Picker Tender 01/06/[address] [place] [address] 01/21/23
== END 2024-01-13 14:58 | disposition home or self-care (01) ==
LOC: WOUND 14:57
PROVIDERS: PCP Internal Medicine; Visit Provider Nurse Practitioner Family
DX: I87.311 Chronic venous hypertension (idiopathic) with ulcer of right lower extremity (principal); L97.212 Non-pressure chronic ulcer of right calf with fat layer exposed
CPT/HCPCS: 11042; 11045

== ENCOUNTER 2024-01-15 09:55 | Outpatient (CLI) | payer MEDICARE, BC, SELFPAY ==
--- OUTSIDE RECORDS SUMMARY | 2024-01-15 10:03 | XMS_ITS | Clinical Summary ---
Author Organization [facility] Address [place], [place] [address] Care Team Providers Care Putty Mixer Name Role Phone CarleneElvira james Stefano RN Unavailable Radha Edouard MD Unavailable Lizeth Alarcon RETAIL RECEIVING CLERK Unavailable David Ambrocio MD Primary Care Provider Jaylon RaymondW Unavailable [phone] [facility] Unavailable Allergies Active Allergy Reactions Criticality [...] Type Department Care Team Description 01/09/2024 Telephone [facility] [address] [place] [phone] Lizeth Alarcon, RETAIL RECEIVING CLERK Appointment 01/07/2024 9:55 AM CDT Ancillary Procedure [facility] at [facility] [address] [place] [address] 01/06/2024 Telephone [facility] [address] [facility] [address] [place] [address] Manny Reynoso MD atrial flutter 01/02/2024 Orders Only [facility] [address] [place] [address] Lizeth Alarcon, RETAIL RECEIVING CLERK <No scans attached> 12/31/2023 8:55 AM CDT - 12/31/2023 11:59 PM CDT Hospital Encounter [facility] [address] [place] [address] 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) 12/31/2023 Travel 12/30/2023 Telephone [facility] [address] [place] [address] Lizeth Alarcon, RETAIL RECEIVING CLERK 12/17/2023 7:23 AM CDT - 12/17/2023 11:59 PM CDT Hospital Encounter [facility] [address] [address] 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 [phone] Unknown, Doctor 11/19/2023 11:15 AM CDT Office Visit [facility] [address] [place] [address] Lizeth Alarcon, RETAIL RECEIVING CLERK Follow Up (Pancytopenia (HC) [D61.818]//) 11/19/2023 Travel 11/19/2023 Telephone [facility] [address] [place] [address] Lizeth Alarcon, RETAIL RECEIVING CLERK Appointment 11/12/2023 8:50 AM CDT - 11/12/2023 11:59 PM CDT Hospital Encounter [facility] [address] [place] [address] Pancytopenia (HC) [D61.818] 11/12/2023 Travel 10/28/2023 Orders Only [facility] Scanner 1 scan: (1-Ord) INCOMING RECORDS-CT, [facility] [place], 10/28/2023 10/28/2023 Orders Only [facility] Scanner 1 scan: (1-Ord) INCOMING RECORDS-LABS, [facility] [place], 10/28/2023 10/28/2023 Orders Only [facility] Scanner 1 scan: (1-Ord) INCOMING RECORDS-LABS, [facility], 10/28/2023 10/27/2023 Telephone [facility] [place] [address] [address] [facility], [facility] Cancer Referral (AML) from Last 3 [...] remission (HC) TRANSFUSE RBC (NURSE COMMUNICATION ORDER) [facility] 12/17/2023 8:57 AM CDT 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 Accession#: ?? [id number] : ?1955 68 years Study Date: ?? 01/07/2024 11:11:16 AM Gender: M ?BP: ? 113/72 mmHg Height: 175.00 cm ?BSA: ?2.02 m? ? ? Weight: 86.00 kg ? Tech: ? MCK ? Referring MD: TRUONG JACK Site: ? [facility] Reading Location: [facility] Patient Location: Inpatient. Procedure: 2D, [...] . This study was interpreted by an [facility] accredited facility. CC: HIM (med records) [facility], Med/Surg - IP [facility]. ??Final ?? Procedure Note Brent Pires MD - 01/07/2024 ECHOCARDIOGRAM JACOBY ALBA : 1955 68 years Study Date: 01/07/2024 11:11:16 AM Gender: M BP: 113/72 mmHg Height: 175.00 cm BSA: 2.02 m? ? ? Weight: 86.00 kg Tech: LETI Referring MD: TRUONG JACK Site: [facility] Reading Location: [place] Patient Location: Inpatient. Procedure: 2D, Color Doppler [...] interpreted by an [facility] accredited facility. CC: [facility] (med records) [facility], Med/Surg - IP [facility]. Final Truong Jack MD ECHO ORD * CWS PATH REVIEW HEMATOLOGY (12/31/2023 9:03 AM CDT) Only the most recent of2 resultswithin the time period is included. PATH COMMENT Reviewed by KT on 01/01/2024 01/01/2024 2:08 PM CDT [facility] Blood BLOOD SPECIMEN / Unknown Venipuncture / Unknown 12/31/2023 9:03 AM CDT 12/31/2023 9:06 AM CDT Narrative [facility] - 01/01/2024 2:08 PM CDT This procedure was originally ordered at [facility]. This procedure was originally ordered at [facility]. This procedure was originally ordered at [facility]. Lizeth Alarcon NP LABORATORY [facility] [address] [place] [address], [place] * (ABNORMAL) CBC WITH AUTO DIFFERENTIAL (12/31/2023 9:03 AM CDT) Only the most recent of3 resultswithin the time period is included. WHITE BLOOD COUNT 3.8(L) 4.5 - 11.0 thou/cu mm 12/31/2023 9:53 AM [facility] RED BLOOD COUNT 3.66(L) 4.30 - 5.90 mil/cu mm 12/31/2023 9:53 AM [facility] HEMOGLOBIN 8.0(L) 13.5 - 17.5 g/dL 12/31/2023 9:53 AM [facility] HEMATOCRIT 28.6(L) 37.0 - 53.0 % 12/31/2023 9:53 AM [facility] MCV 78(L) 80 - 100 fL 12/31/2023 9:53 AM [facility] MCH 21.9(L) 26.0 - 34.0 pg 12/31/2023 9:53 AM [facility] MCHC 28.0(L) 32.0 - 36.0 g/dL 12/31/2023 9:53 AM [facility] RDW 21.8(H) 11.5 - 15.5 % 12/31/2023 9:53 AM [facility] PLATELET COUNT 291 140 - 440 thou/cu mm 12/31/2023 9:53 AM [facility] MPV 12/31/2023 9:53 AM [facility] Comment:Unable to be determi amada Blood BLOOD SPECIMEN / Unknown Venipuncture / Unknown 12/31/2023 9:03 AM CDT 12/31/2023 9:06 AM CDT [facility] - 12/31/2023 9:53 AM CDT This procedure was originally ordered at [facility]. This procedure was originally ordered at [facility]. This procedure was originally ordered at [facility]. Lizeth Alarcon NP HEMATOLOGY Performing Organization Address [facility]/ZIP Co de Phone Number [facility] [address] [place] [address] * (ABNORMAL) RED CELL MORPHOLOGY (12/31/2023 9:03 AM CDT) Only the most recent of3 resultswithin the time period is included. ELLIPTOCYTES Few 12/31/2023 9:53 AM CDT [facility] POLYCHROMASIA Slight 12/31/2023 9:53 AM CDT [facility] SCHISTOCYTES Few 12/31/2023 9:53 AM CDT [facility] TEARDROP CELLS Few 12/31/2023 9:53 AM T [facility] RBC COMMENT Present(A) RBC morphology appears normal, RBC morphology within normal limits for newborns. 12/31/2023 9:53 AM CDT [facility] Blood BLOOD SPECIMEN / Unknown Venipuncture / Unknown 12/31/2023 9:03 AM CDT 12/31/2023 9:06 AM CDT Narrative [facility] - 12/31/2023 9:53 AM CDT This procedure was originally ordered at [facility]. This procedure was originally ordered at [facility]. This procedure was originally ordered at [facility]. Lizeth Alarcon NP HEMATOLOGY Performing Organization Address [facility]/ZIP Co de Phone Number [facility] [address] [place] [address] * PLATELET ESTIMATE (12/31/2023 9:03 AM CDT) Only the most recent of3 resultswithin the time period is included. Pathologist [facility] PLATELET ESTIMATE Adequate Adequate, No estimate 12/31/2023 9:53 AM [facility] Blood BLOOD SPECIMEN / Unknown Venipuncture / Unknown 12/31/2023 9:03 AM CDT 12/31/2023 9:06 AM CDT [facility] - 12/31/2023 9:53 AM CDT This procedure was originally ordered at [facility]. This procedure was originally ordered at [facility]. This procedure was originally ordered at [facility]. Lizeth Alarcon NP HEMATOLOGY [facility] [address] [place] [address] * (ABNORMAL) MANUAL DIFFERENTIAL (12/31/2023 9:03 AM CDT) Only the most recent of3 resultswithin the time period is included. Pathologist [facility] % NEUTROPHILS 45.0 % 12/31/2023 9:53 AM [facility] % LYMPHOCYTES 34.0 % 12/31/2023 9:53 AM [facility] % MONOCYTES 17.0 % 12/31/2023 9:53 AM [facility] % EOSINOPHILS 0.0 % 12/31/2023 9:53 AM [facility] % BASOPHILS 0.0 % 12/31/2023 9:53 AM [facility] % METAMYELOCYTES 4.0(H) <0.1 % 12/31/19 9:53 AM [facility] NEUTROPHILS ABSOLUTE 1.7 1.7 - 7.0 thou/cu mm 12/31/2023 9:53 AM [facility] LYMPHOCYTES ABSOLUTE 1.3 0.9 - 2.9 thou/cu mm 12/31/2023 9:53 AM [facility] MONOCYTES ABSOLUTE 0.6 <0.9 thou/cu mm 12/31/2023 9:53 AM [facility] EOSINOPHILS ABSOLUTE 0.0 <0.5 thou/cu mm 12/31/2023 9:53 AM CDT [facility] BASOPHILS ABSOLUTE 0.0 <0.3 thou/cu mm 12/31/2023 9:53 AM CDT [facility] ABSOLUTE METAMYELOCYTES 0.2(H) <=0.0 thou/cu mm 12/31/2023 9:53 AM T [facility] ABS NRBC 0.1 thou /cu mm 12/31/2023 9:53 AM T [facility] MANUAL NRBC PER 100 CELLS 3.0 /100 CELLS 12/31/2023 9:53 AM T [facility] Blood BLOOD SPECIMEN / Unknown Venipuncture / Unknown 12/31/2023 9:03 AM CDT 12/31/2023 9:06 AM CDT Narrative [facility] - 12/31/2023 9:53 AM CDT This procedure was originally ordered at [facility]. This procedure was originally ordered at [facility]. This procedure was originally ordered at [facility]. Lizeth Alarcon NP HEMATOLOGY Performing Organization Address City/[facility] Co de Phone Number [facility] [address] [place] [address] * BLOOD BANK EXTRA LAVENDER TOP (12/31/2023 9:03 AM CDT) Blood BLOOD SPECIMEN / Unknown Venipuncture / Unknown 12/31/2023 9:03 AM CDT 12/31/2023 9:07 AM CDT Doctor Unknown BLOOD BANK Performing Organization Address City/[facility]/ZIP Co de Phone Number [facility] [address] [place] [address] * TRANSFUSE RBC (NURSE COMMUNICATION ORDER) (12/17/2023 11:09 AM CDT) Blood BLOOD SPECIMEN / Unknown Lizeth Alarcon NP NURSING BLOOD BANK * RBC W/O TYPE & SCREEN (12/17/2023 8:39 AM CDT) QUANTITY 1 12/17/2023 8:39 AM CDT [facility] BLOOD BANK Blood BLOOD SPECIMEN / Unknown 12/17/2023 8:30 AM CDT Lizeth Alarcon RETAIL RECEIVING CLERK BLOOD BANK Performing Organization Address City/[facility] Co de Phone Number [facility] BLOOD BANK [address] [place] [address] * RED BLOOD CELLS EA UNIT (12/15/2023 11:15 AM CDT) Pathologist [facility] CROSSMATCH Compatible Compatible [facility] B[facility]OD BANK PRODUCT BLOOD TYPE O Rh Negative [facility] BLOOD BANK PRODUCT ID NUMBER [id number] [facility] BLOOD BANK PRODUCT STATUS Transfused [facility] BLOOD BANK PRODUCT DESCRIPTION RBC -1 LR [facility] BLOOD BANK PRODUCT CODE [id number] [facility] B[facility] B[facility] ISSUE DATE/TIME 12/17/23 08:52 [facility] BLOOD BANK Lizeth Alarcon RETAIL RECEIVING CLERK BLOOD BANK Performing Organization Address [facility] Co de Phone Number [facility] BLOOD BANK [address] [place] [address] * TYPE & SCREEN (12/15/2023 11:13 AM CDT) ABORH O Rh Negative 12/15/2023 1:13 PM CDT [facility] BLOOD BANK ANTIBODY SCREEN Negative Negative 12/15/2023 1:13 PM CDT [facility] BLOOD BANK SPECIMEN EXPIRATION DATE/TIME 12/18/23 23:59 12/15/2023 1:13 PM CDT [facility] BLOOD BANK Blood BLOOD SPECIMEN / Unknown Venipuncture / Unknown 12/15/2023 11:13 AM CDT 12/15/2023 11:20 AM CDT Lizeth Alarcon RETAIL RECEIVING CLERK BLOOD BANK Performing Organization Address [facility] de Phone Number [facility] BLOOD BANK [address] [place] [address] * (ABNORMAL) REFERRAL SUSCEPTIBILITY (12/02/2023 3:40 PM CDT) CULTURE RESULT(A) 12/08/2023 10:57 AM CDT [facility] CULTURE Streptococcus group G 12/08/2023 10:57 AM CDT [facility] Comment:This isolate is pres umed to [...] R Doctor Unknown MICROBIOLOGY Performing Organization Address [facility] de Phone Number [facility] [address] * PERIPHERAL BLD MORPHOLOGY (11/12/2023 8:56 AM CDT) Case Report Special Hematology Report ? Case: [id number] ? Authorizing Provider: ??Radha Edouard MD ?Collected: ? 11/12/2023 0856 ? Ordering Location: ? [facility] Cancer ? Received: ?11/12/2023 0857 ? [facility] ? Pathologist: ? Alfonso Ramesh, ? MD ? Specimen: ?Blood ? 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 6.5% BLASTS identified 2. 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 Moderate microcytic hypochromic anemia, suggestive of iron deficiency anemia 4. See comment 11/15/2023 1:55 PM CDT [facility] Comment Since the last described peripheral blood morphology performed with the bone marrow biopsy 09/25/2023 ([id number]), the blast count has remained essentially the [...] also reviewed by Mari Armijo MT, MS ([facility]). 11/15/2023 1:55 PM CDT [facility] Clinical Information The [...] ? 53 (L) 11/15/2023 1:55 PM CDT [facility] CBC and Differential HEMATOLOGY PARAMETERS Tested at: ??[facility] ? RESULTS ??EXPECTED VALUES WBC: ? 3.1 ?4.5-84j5631/cumm ?DECREASED RBC: ? 3.49 ? 4.30-5.90 mil/cumm ??DECREASED HGB: ? 8.0 ?13.5-17.5 gm/di ? DECREASED HCT: ? 27.7 ? 37-53% ?DECREASED MCV: ? 79.0 ? 80-100 fl ? MICROCYTIC MCH: ? 22.9 ? 26-34 pg ?DECREASED MCHC: ?28.9 ? 32-36 gm/dl ? HYPOCHROMIC RDW: ? 22.3 ? 11.5-15.5% ?ELEVATED PLT: ? 357 ?[id number]/uL MPV: ? Unable to be determined ? [...] ??(0%) ? BLASTS 11/15/2023 1:55 PM CDT [facility] Reticulocytes Retic: 6.6 0.5-1.5% ELEVATED 11/15/2023 1:55 PM CDT [facility] Microscopic Description The final diagnosis is based on microscopic examination of an appropriately stained blood smear. 11/15/2023 1:55 PM CDT [facility] Additional Information Interpreted at [facility] - [address], [place] [address] 11/15/2023 1:55 PM CDT [facility] Blood BLOOD SPECIMEN / [...] Rfl: This procedure was originally ordered at [facility]. Radha Edouard MD HEMATOLOGY [facility] [address] [place] [address], * (ABNORMAL) LD,TOTAL (11/12/2023 8:56 AM CDT) LD,TOTAL 411(H) 135 - 225 IU/L 11/12/2023 10:39 AM CDT [facility] Blood BLOOD SPECIMEN / Unknown Butterfly / Unknown 11/12/2023 8:56 AM CDT 11/12/2023 8:57 AM CDT Radha Edouard MD CHEMISTRY [facility] [address] [place] [address] * (ABNORMAL) RETICULOCYTES (11/12/2023 8:56 AM CDT) RETIC% 6.6(H) 0.5 - 1.5 % 11/12/2023 1:15 PM CDT [facility] RETIC (ABSOLUTE) 0.24(H) 0.03 - 0.08 mil/cu mm 11/12/2023 1:15 PM CDT [facility] Blood BLOOD SPECIMEN / Unknown Butterfly / Unknown 11/12/2023 8:56 AM CDT 11/12/2023 8:57 AM CDT Narrative [facility] - 11/12/2023 1:15 PM CDT This procedure was originally ordered at [facility]. Radha Edouard MD HEMATOLOGY [facility] [address] [place] [address], * (ABNORMAL) HEPATIC FUNCTION PANEL (11/12/2023 8:56 AM CDT) ALBUMIN 2.9(L) 4.0 - 4.9 g/dL 11/12/2023 9:43 AM CDT [facility] PROTEIN,TOTAL 10.2(H) 6.0 - 8.0 g/dL 11/12/2023 9:43 AM CDT [facility] BILIRUBIN,TOTAL 0.5 0.0 - 1.2 mg/dL 11/12/2023 9:43 AM CDT [facility] BILIRUBIN,DIRECT <0.2 0.0 - 0.3 mg/dL 11/12/2023 9:43 AM CDT [facility] BILIRUBIN,INDIRE CT 11/12/2023 9:43 AM CDT [facility] Comment:Unable to calculate, Direct Bili <0.2 ALK PHOSPHATASE 87 40 - 129 IU/L 11/12/2023 9:43 AM [facility] ALT (SGPT) <5(L) 10 - 50 IU/L 11/12/2023 9:43 AM [facility] AST (SGOT) 46 10 - 50 IU/L 11/12/2023 9:43 AM [facility] Blood BLOOD SPECIMEN / Unknown Butterfly / Unknown 11/12/2023 8:56 AM CDT 11/12/2023 8:57 AM CDT Radha Edouard MD CHEMISTRY [facility] [address] [place] [address] * (ABNORMAL) BASIC METABOLIC PANEL (11/12/2023 8:56 AM CDT) SODIUM 132(L) 136 - 145 mmol/L 11/12/2023 9:28 AM [facility] POTASSIUM 4.0 3.5 - 5.1 mmol/L 11/12/2023 9:28 AM [facility] CHLORIDE 101 98 - 107 mmol/L 11/12/2023 9:28 AM [facility] CO2,TOTAL 22 22 - 29 mmol/L 11/12/2023 9:28 AM [facility] ANION GAP 9 5 - 18 11/12/2023 9:28 AM [facility] GLUCOSE 98 70 - 99 mg/dL 11/12/2023 9:28 AM [facility] CALCIUM 8.1(L) 8.8 - 10.2 mg/dL 11/12/2023 9:28 AM [facility] BUN 17 8 - 23 mg/dL 11/12/2023 9:28 AM [facility] CREATININE 1.44(H) 0.70 - 1.20 mg/dL 11/12/2023 9:28 AM CDT [facility] BUN/CREAT RATIO 12 10 - 20 9:28 AM CDT [facility] eGFR 53(L) >90 mL/min/1.7 3m2 11/12/2023 9:28 AM CDT [facility] Comment:As of 2021, eG FR [...] 8:57 AM CDT Radha Edouard MD CHEMISTRY [facility] [address] [place] [address] * SCAN CORRESP-LABORATORY RESULTS (10/28/2023 12:00 AM [...] Non Reactive 10/11/2022 12:08 PM CDT [facility] Blood BLOOD SPECIMEN / Unknown Venipuncture / Unknown 10/09/2022 9:06 AM CDT 10/09/2022 9:[address] [facility] - 10/11/2022 12:08 PM CDT Performed at: ??01 - [facility] [address] [place] [address] ??[phone] Radio Frequency Design Engineer: Zane Rebolledo MD, Phone: ??[phone] Radha Edouard MD LABORATORY [facility]) [facility] [place] [address], * CT CHEST ABDOMEN PELVIS W (09/19/2022 [...] - 199 mg/dL 09/09/2022 12:53 PM T [facility] TRIGLYCERIDES 77 <150 mg/dL 09/09/2022 12:53 PM T [facility] HDL CHOLESTEROL 34(L) >40 mg/dL 12:53 PM CDT [facility] NON-HDL CHOLESTEROL 115 <145 mg/dl 09/09/2022 12:53 PM CDT [facility] CHOL/HDL RATIO 4.38 <4.50 09/09/2022 12:53 PM CDT [facility] LDL CHOLESTEROL 100 <=130 mg/dL 09/09/2022 12:53 PM T [facility] VLDL CHOLESTEROL 15 <=30 mg/dL 09/09/2022 12:53 PM CDT [facility] PROVIDER ORDERED STATUS RANDOM 09/09/2022 12:53 PM T [facility] Blood BLOOD SPECIMEN / Unknown Butterfly / Unknown 09/09/2022 12:06 PM CDT 09/09/2022 12:07 PM CDT David Ambrocio MD CHEMISTRY Performing Organization Address City/State/[facility] Co de Phone Number [facility] [address] [place] [address] from Last 3 Months or Most Recently [...] Discussion: Reviewed Preferences wit h Care Teams Putty Mixer Relationship Specialty Start Date End Date David Ambrocio MD [address] [place] [address] PCP - General Family Practice 11/27/22 Elvira Morin RN [address] [place] [address] Nurse Navigator - Oncology Registered Nurse 10/18/22 Radha Edouard MD [address] [place] [address] Medical Oncologist Hematology and Oncology 11/21/22 Lizeth Alarcon NP [address] [place] [address] Nurse Practitioner Hematology and Oncology 11/21/22 Jaylon Raymond LSW [address] [place] [address] Rnfa 01/06/[address] [place] [address] 01/21/23
== END 2024-01-15 09:56 | disposition home or self-care (01) ==
PROVIDERS: PCP Internal Medicine; Visit Provider Internal Medicine
DX: D64.9 Anemia, unspecified (principal)
CPT/HCPCS: 80048; 80162

== ENCOUNTER 2024-01-19 16:46 | Inpatient (IN) | payer MEDICARE, BC, SELFPAY ==
[2024-01-19] VITALS (34 sets, daily range): BP systolic 107–141; BP diastolic 74–100; PULSE 136–145; RESP 24–36; TEMP 36.3–36.8; O2SAT 89–93; BMI 26.5; BMI 28.2
--- NOTE | 2024-01-19 17:48 | CRLHL7_ITS ---
For Patients: As a result of the Cures Act, medical imaging exams and procedure reports are released immediately into your electronic medical record. You may view this report before your referring provider. If you have questions, please contact your health care provider. INDICATION: Shortness of breath TECHNIQUE: Chest radiograph 2 views COMPARISON: 01/07/2024 FINDINGS: Mediastinum: The mediastinum is normal in appearance. The heart silhouette is normal in size and morphology. Lung: Bibasilar consolidation with bilateral pleural effusions are noted without significant change. No pneumothorax is identified. Bone and Soft tissue: Unremarkable for age. IMPRESSION: 1. Bibasilar consolidation with bilateral pleural effusions are noted without significant change. Dictated by Len Thayer MD @ 01/19/2024 6:24:46 PM Dictated by: Len Thayer MD @ 01/19/2024 18:24:48 (Electronically Signed)
--- NOTE | 2024-01-19 17:50 | CRLHL7_ITS ---
For Patients: As a result of the 21st Century Cures Act, medical imaging exams and procedure reports are released immediately into your electronic medical record. You may view this report before your referring provider. If you have questions, please contact your health care provider. INDICATION: LLQ PAIN. SOB. HX OF ACUTE MYELOID LEUKEMIA. TECHNIQUE: CT abdomen and pelvis without contrast. COMPARISON: None. FINDINGS: Lower chest: Partially visualized pleural effusions, at least moderate in volume, with underlying atelectasis. Small to moderate pericardial effusion. Noncontrast technique limits solid organ evaluation. Liver: Multiple cystic hepatic lesions and other subcentimeter hypodensities, too small characterize. Gallbladder and bile ducts: Cholelithiasis. No evident biliary ductal dilatation. Pancreas: Diffuse calcification compatible with sequelae of chronic pancreatitis. Spleen: Moderate to severe splenomegaly, measuring up to 18.8 cm in craniocaudal extent. Adrenal glands: Unremarkable. Kidneys: Normal in size. No hydronephrosis. GI tract: No evident acute abnormalities. Vasculature: Abdominal aorta is normal in caliber. Lymph nodes: No lymphadenopathy. Peritoneum/Abdominal Wall: There is anasarca with fat stranding throughout the abdominopelvic cavity, most pronounced in the presacral space. There is asymmetric intermediate density thickening of the left abdominal wall, which is ill-defined on this noncontrast examination, but for reference, measures approximately 13.6 x 3.9 cm transaxially (/64). Pelvis: Prostatomegaly with mild diffuse urinary bladder wall thickening. Bones: Unremarkable for age. IMPRESSION: 1. There is asymmetric intermediate density left lateral abdominal wall thickening, which is nonspecific, and could reflect a hematoma or solid lesion. This could be further characterized with targeted ultrasound or contrast-enhanced cross-sectional imaging. 2. There is anasarca with moderate bilateral pleural effusions and a small to moderate pericardial effusion. 3. Moderate to severe splenomegaly, which may be related to the reported leukemia. Please note that all CT scans at this facility use dose modulation, iterative reconstruction, and/or weight-based dosing when appropriate to reduce radiation dose to as low as reasonably achievable. Dictated by Freddy Wagner MD @ 01/19/2024 7:08:50 PM (Electronically Signed)
[2024-01-19] MEDS: METOPROLOL TARTRATE 1 MG/ML inj 5 MG IVP (17:57)
[2024-01-19 18:00] LABS: Lactate* 2.2 mmol/L (0.5-1.9)
[2024-01-19 18:02] LABS: Basophils Percent Auto 2.9 % (0.0-3.0); Hematocrit 32.2 % (37.0-53.0); Hemoglobin* 9.2 gm/dL (13.5-17.5); Immature Granulocytes Pct Auto 10.2 %; Lymphocytes Percent Auto 28.9 % (20-44); Mean Corpuscular HGB Conc 29 gm/dL (32-36); Mean Corpuscular Hemoglobin 23 pg (26-34); Mean Corpuscular Volume 80 fL (80-100); Monocytes Percent Auto 36.7 % (0.0-11.0); Neutrophils Percent Auto 21.3 % (42.0-72.0); Platelet Count* 184 K/uL (140-440); RDW Coefficient of Variation % 21.6 % (11.5-15.5); Red Blood Count 4.02 m/uL (4.30-5.90); White Blood Count* 4.12 K/uL (4.50-11.00)
--- NOTE | 2024-01-19 18:21 | ED.GENADULT ---
HPI - General Adult General Chief complaint: Abdominal Pain Stated complaint: Abdominal pain/distension, feet swollen, low O2 Time Seen by Provider: 01/19/24 17:19 Source: patient and family Mode of arrival: ambulatory Limitations: no limitations History of Present Illness HPI narrative: Patient is a 68-year-old male presenting today with several problems: shortness of breath, bilateral lower extremity swelling, left-sided abdominal pain. 1. Shortness of breath has been going on since patient was discharged from the hospital approximately 10 days ago. He was seen by his primary care provider 4 days ago, states that he was not sure whether not he mention he was short of breath at that time. He denies fevers or chills. He has a chronic mild cough that is unchanged. He does continue to smoke. He states that he cannot lay down flat. 2. Bilateral lower extremity swelling. Patient states that his extremities have been swelling steadily in the last week, worse in the last couple of days. He describes pain bilaterally. He does have a chronic ulcer on the right that he has been [facility]. 3. Left-sided abdominal pain started 3 days ago. It is sharp, constant but he does have waves where it gets worse. He denies any nausea or vomiting. No fevers or chills. He cannot tell me when his last bowel movement was. He really can not tell me if he is having any urinary symptoms. He he denies blood in his urine. He states that he has not been able to eat anything all day today. Has been eating very little in the last few days. Patient has a complex medical history with significant distress of the medical system and generally not wanting to have it his disease is treated. Please see recent H&P for details. Patient was discharged home on digoxin, metoprolol and Cardizem for difficult to control atrial flutter. His tells me that he has been very firm that he wants to manage all these medications so she is uncertain of whether he is taking his medications or not. She states that he generally sleeps until 10 or 11 in the morning in so he is not taking the morning dose, his 1st dose of medication is usually when he wakes up late in the morning. And then he states that he takes an evening dose. However today, he tells me that he took a dose 3 hours prior to presenting to the ER which is around 3:00 p.m. in the afternoon. When I asked him if this is the usual time he takes his medications he is unable to answer the question. The patient is also supposed to be on Eliquis and Lasix. Related Data Previous Rx's ?Medication ?Instructions ?Recorded hydrocodone 5 mg-acetaminophen 325 1 tab PO TID PRN pain #30 tabs 01/05/24 mg tablet digoxin 125 mcg (0.125 mg) tablet 125 mcg PO DAILY #30 tabs 01/08/24 doxycycline hyclate 100 mg tablet 100 mg PO BID #8 tabs 01/08/24 furosemide 40 mg tablet 40 mg PO DAILY@0800 #30 tabs 01/08/24 apixaban 5 mg tablet (Eliquis) 2.5 mg (1/2 x 5 mg) PO Q12H #60 01/09/24 tabs diltiazem HCl 120 mg 120 mg PO HS #30 caps 01/09/24 capsule,extended release 24 hr, controlled (DILT-XR) diltiazem HCl 240 mg 240 mg PO DAILY #30 caps 01/09/24 capsule,extended release 24 hr, controlled ipratropium 20 mcg-albuterol 100 1 puff inhalation Q6H PRN 01/09/24 mcg/actuation mist for inhalation shortness of breath or wheezing #4 (Combivent Respimat) grams metoprolol tartrate 100 mg tablet 100 mg PO BID #60 tabs 01/09/24 potassium chloride 20 mEq 20 meq PO BID #60 tabs 01/09/24 tablet,extended release Allergies Allergy/AdvReac Type Severity Reaction Status Date / Time No Known Drug Allergies Allergy Verified 01/15/24 09:42 Review of Systems Status of ROS: Reports: 10 or more systems reviewed and unremarkable except as noted in History and below [facility] Medical History (Updated 01/19/24 @ 22:54 by Brooke Diaz MD) Palliative care encounter ?Z51.5 - Encounter for palliative care (ICD-10) Heart failure with preserved ejection fraction ?I50.30 - Unspecified diastolic (congestive) heart failure (ICD-10) Malnutrition ?E46 - Unspecified protein-calorie malnutrition (ICD-10) Anasarca ?R60.1 - Generalized edema (ICD-10) CKD stage 3b, GFR 30-44 ml/min ?N18.32 - Chronic kidney disease, stage 3b (ICD-10) Heart failure ?I50.9 - Heart failure, unspecified (ICD-10) Atrial flutter with rapid ventricular response ?I48.92 - Unspecified atrial flutter (ICD-10) COPD (chronic obstructive pulmonary disease) ?J44.9 - Chronic obstructive pulmonary disease, unspecified (ICD-10) Surgical History Status post debridement ?Z98.890 - Other specified postprocedural states (ICD-10) Social History Narrative: He lives in [place] with his and 2 adult children. 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 Code status is full. Long-time smoker having quit for days ago. Quit using alcohol and recreational drugs in 1985. 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 What is your current living situation?: I presently have a place to live Problems where you live: no known problems Problems where you live details: na In the past 12 months, utilities in danger of being shut off: no In past 12 months, lack of transportation kept you from medical appts, meetings, work, or getting things needed for daily living: no In the past 12 mos, have been you worried that your food would run out before you had money to buy more?: never true In the past 12 mos, the food you bought just didn't last and you didn't have money to buy more?: never true Highest level of school completed/degree received: Associate degree: academic program Smoking Status: Current some day smoker What tobacco products do you use: cigarettes Smoking packs per day: 1 Smoking cigarettes per day: 20.0 Smoking quit date/years: <= 15 years ago Nicotine containing products detail: pt stated he quit smoking 3 days ago, 01/03/2024 How often do you have a drink containing alcohol: never AUDIT-C Alcohol total score: 0 Non-prescribed substance use: denies use Caffeine: Yes (soda) How often does anyone, including family, friends and others, physically hurt you: never How often does anyone, including family, friends and others, insult or talk down to you: never How often does anyone, including family, friends and others, threaten you with harm: never How often does anyone, including family, friends and others, scream or curse at you: never service: No Exam Narrative: Exam Narrative: Frail appearing patient in mild respiratory distress. Poor historian. Has a hard time answering questions. Patient cannot complete a full sentence without needing to catch his breath. He appears generally pale in color. HEENT: Normocephalic atraumatic. Pupils are equally round reactive to light. Extraocular muscles are intact. Conjunctivae are moist without any icterus noted. Moist mucous membranes. Cardiovascular: Tachycardic. Lungs: Decreased breath sounds on the right, bilateral end-expiratory crackles. Abdomen: Distended and firm with hypoactive bowel sounds. Acute tenderness on the left side of the entire abdomen with firmness of the abdominal wall. Extremities: Bilateral lower extremities show 3+ pitting edema bilaterally. Skin: Generally pale, dusky hue Const: Vital Signs, click to edit/add: Vital Signs - 24 hr 01/19/24 16:55 01/19/24 17:05 01/19/24 17:12 Temperature 98.2 F Pulse Rate Pulse Rate [Left P ulse Oximeter] Pulse Rate [Pulse Oximeter] 143 H Respiratory Rate 24 Blood Pressure 132/92 H Blood Pressure [Le ft Arm] Blood Pressure [Ri ght Upper Arm] 110/76 Pulse Oximetry 90 92 Oxygen Delivery Me thod Room Air Room Air 01/19/24 17:31 01/19/24 17:46 01/19/24 17:47 Temperature Pulse Rate 143 H 143 H Pulse Rate [Left P ulse Oximeter] Pulse Rate [Pulse Oximeter] Respiratory Rate 34 H Blood Pressure 123/82 125/81 Blood Pressure [Le ft Arm] Blood Pressure [Ri ght Upper Arm] Pulse Oximetry 89 90 Oxygen Delivery Me thod Room Air Room Air Room Air 01/19/24 18:17 01/19/24 18:20 01/19/24 18:30 Temperature Pulse Rate 140 H 140 H 141 H Pulse Rate [Left P ulse Oximeter] Pulse Rate [Pulse Oximeter] Respiratory Rate 36 H 34 H Blood Pressure Blood Pressure [Le ft Arm] Blood Pressure [Ri ght Upper Arm] Pulse Oximetry 92 89 89 Oxygen Delivery Me thod Room Air Room Air Room Air 01/19/24 18:34 01/19/24 18:44 01/19/24 18:45 Temperature Pulse Rate 142 H 142 H Pulse Rate [Left P ulse Oximeter] Pulse Rate [Pulse Oximeter] Respiratory Rate 32 H Blood Pressure 121/85 Blood Pressure [Le ft Arm] Blood Pressure [Ri ght Upper Arm] Pulse Oximetry 90 89 Oxygen Delivery Me thod Room Air Room Air Room Air 01/19/24 19:00 01/19/24 19:03 01/19/24 19:15 Temperature Pulse Rate 141 H 142 H 142 H Pulse Rate [Left P ulse Oximeter] Pulse Rate [Pulse Oximeter] Respiratory Rate 32 H Blood Pressure 121/77 Blood Pressure [Le ft Arm] Blood Pressure [Ri ght Upper Arm] Pulse Oximetry 89 90 89 Oxygen Delivery Mi thod Room Air Room Air 01/19/24 19:31 01/19/24 20:01 01/19/24 20:09 Temperature Pulse Rate Pulse Rate [Left P ulse Oximeter] Pulse Rate [Pulse Oximeter] Respiratory Rate Blood Pressure 133/100 H 133/93 H Blood Pressure [Le ft Arm] Blood Pressure [Ri ght Upper Arm] Pulse Oximetry 91 Oxygen Delivery Me thod 01/19/24 20:15 01/19/24 20:15 Temperature 97.3 F L Pulse Rate Pulse Rate [Left P ulse Oximeter] 138 H Pulse Rate [Pulse Oximeter] Respiratory Rate 24 24 Blood Pressure Blood Pressure [Le ft Arm] 140/91 H Blood Pressure [Ri ght Upper Arm] Pulse Oximetry 90 90 Oxygen Delivery Mi thod Room Air Room Air Course Course ED Course: EKG, read by me, appears to show supraventricular tachycardia. Pulse is 142. I did compare this to his previous EKG which was clearly atrial flutter on different from today's. POC troponin is normal. Chest x-ray, read by me, shows bilateral pleural effusions which do seem to be slightly bigger than his previous x-ray. His CBC is unchanged from previous days this month. He has hemoglobin stable at 9.2. Platelet count 184. Sodium is at his baseline of 133. Potassium is normal at 4.5. BUN elevated at 37, creatinine 1.8. Lactate slightly elevated at 2.2. Normal magnesium. AST elevated at 50. Negative troponin. CRP elevated at 3.9. TSH 15.3. Urinalysis unremarkable. Triple swab is negative. Abdominal CT showing a mass versus hematoma of the left abdominal wall, pericardial effusion noted. We did attempt IV metoprolol while he was down here and this did not have any affect on him. He also received 40 mg of IV Lasix. I did consult with Dr. Reynoso, cardiology at [facility] who recommended we restart his medications except hold the diltiazem at this time if he is in heart failure. He recommended a repeat echocardiogram and diuresis. Vital Signs Vital signs: Initial Vital Signs Temperature 98.2 F 01/19/24 16:55 Temperature Source Temporal Artery Scan 01/19/24 16:55 Pulse Rate 143 H 01/19/24 16:55 Respiratory Rate 24 01/19/24 16:55 Blood Pressure 110/76 01/19/24 16:55 Blood Pressure Mean 87 01/19/24 16:55 Blood Pressure Position Sitting 01/19/24 16:55 Pulse Oximetry 90 01/19/24 16:55 Oxygen Delivery Method Room Air 01/19/24 16:55 Vital Signs Temperature 98.2 F 01/19/24 16:55 Pulse Rate 143 H 01/19/24 16:55 Respiratory Rate 24 01/19/24 16:55 Blood Pressure 110/76 01/19/24 16:55 Pulse Oximetry 90 01/19/24 16:55 Oxygen Delivery Method Room Air 01/19/24 16:55 Temperature 97.3 F L 01/19/24 20:15 Pulse Rate 144 H 01/19/24 22:45 Respiratory Rate 24 01/19/24 20:15 Blood Pressure 139/89 01/19/24 22:10 Pulse Oximetry 90 01/19/24 20:15 Oxygen Delivery Method Room Air 01/19/24 20:15 Medications Administered Medications: Generic Name Dose Route Start Last Admin Trade Name Freq PRN Reason Stop Dose Admin Furosemide 100 mg/ Dextrose 110 mls @ 10 mls/hr 01/19/24 20:30 01/19/24 21:21 IVPB 10 mls/hr Q10H VENUS Administration Diltiazem HCl 125 mg/ Sodium 125 mls @ 10 mls/hr 01/19/24 20:35 01/19/24 22:22 Chloride IVPB 10 mls/hr .TITRATE VENUS Infusion Protocol Metoprolol Tartrate 100 mg 01/19/24 21:00 01/19/24 22:17 Metoprolol Tartrate 100 Mg Tablet PO 100 mg BID VENUS Administration Oxycodone HCl 2.5 mg 01/19/24 20:06 01/19/24 20:37 Oxycodone 5 Mg Tablet PO 2.5 mg Q2H PRN Administration Pain Potassium Chloride 20 meq 01/19/24 21:00 01/19/24 22:17 Potassium Chloride 10 Meq Capsule Er PO 20 meq BID VENUS Administration Sodium Chloride 5 ml 01/19/24 21:00 01/19/24 22:18 Sodium Chloride 0.9 % (Flush) 10 Ml Syringe IVF 5 ml BID VENUS Administration Discontinued Medications Generic Name Dose Route Start Last Admin Trade Name Freq PRN Reason Stop Dose Admin Furosemide 40 mg 01/19/24 18:44 01/19/24 18:58 Furosemide 10 Mg/Ml Inj IVP 01/19/24 18:45 40 mg ONCE ONE Administration Metoprolol Tartrate 5 mg 01/19/24 17:46 01/19/24 17:57 Metoprolol Tartrate 1 Mg/Ml Inj IVP 01/19/24 17:47 5 mg ONCE ONE Administration Medical Decision Making [facility] Narrative Medical decision making narrative: 68-year-old male with multiple issues including atrial flutter with RVR, heart failure, abdominal wall mass and abdominal discomfort, anasarca, elevated TSH, chronic anemia and AML. Patient will be admitted for further management. Lab Data Lab results reviewed: Yes I reviewed the patient's lab results Labs: Lab Results 01/19/24 01/19/24 Range/Units 17:30 20:00 WBC 4.12 L (4.50-11.00) K/uL RBC 4.02 L (4.30-5.90) m/uL Hgb 9.2 L (13.5-17.5) gm/dL Hct 32.2 L (37.0-53.0) % MCV 80 (80-100) fL MCH 23 L (26-34) pg MCHC 29 L (32-36) gm/dL RDW Coeff of [place]ilar 21.6 H (11.5-15.5) % Plt Count 184 (140-440) K/uL Neut % (Auto) 21.3 L (42.0-72.0) % Lymph % (Auto) 28.9 (20-44) % [place] % (Auto) 36.7 H (0.0-11.0) % Eos % (Auto) 0.0 (0.0-7.0) % Baso % (Auto) 2.9 (0.0-3.0) % Neut # (Auto) 0.90 L (1.7-7.0) K/uL Lymph # (Auto) 1.20 (0.90-2.90) K/uL [place] # (Auto) 1.50 H (0.00-0.90) K/UL Eos # (Auto) 0.00 (0.00-0.50) K/uL Baso # (Auto) 0.10 (0.00-0.30) K/uL Abs Immat Gran (auto) 0.40 H (0.00-0.30) K/uL Imm/Tot Granulo (auto) 10.2 % Diff Slide Review Acceptable Review (Acceptable) Sodium 133 L (135-149) mmol/L Potassium 4.5 (3.6-5.1) mmol/L Chloride 99 (96-114) mmol/L Carbon Dioxide 27 (20-32) mmol/L Anion Gap 7 (7-15) mEq/L BUN 37 H (7-30) mg/dL Creatinine 1.8 H (0.5-1.5) mg/dL Estimated Creat Clear 38.00 Estimated GFR 40 ml/min Glucose 113 (60-115) mg/dL Lactate 2.2 H (0.5-1.9) mmol/L Calcium 8.8 (8.4-10.6) mg/dL Magnesium 2.0 (1.5-2.6) mg/dL Total Bilirubin 0.8 (0.1-1.5) mg/dL Direct Bilirubin 0.2 (0.0-0.5) mg/dL AST 50 H (12-35) U/L ALT 16 (4-50) U/L Alkaline Phosphatase 107 (40-150) U/L Troponin I < 0.01 L (0.01-0.04) ng/mL C-Reactive Protein 3.9 H (0.5-1.0) mg/dL NT-Pro-B Natriuret Pep 3600 pg/mL Total Protein 10.5 H (6.0-8.3) g/dL Albumin 3.4 (3.3-5.0) g/dL Lipase 55 (23-300) U/L TSH 15.300 H (0.270-4.20) uIU/mL Urine Color Yellow (Yellow) Urine Appearance Clear (Clear) Urine pH 5.0 (5.0-8.5) Ur Specific [place] 1.015 (1.000-1.030) Urine Protein Negative (Negative) Urine Glucose (UA) Negative (Negative) Urine Ketones Negative (Negative) Urine Blood Negative (Negative) Urine Nitrite Negative (Negative) Urine Bilirubin Negative (Negative) Urine Urobilinogen 0.2 (0.2-1.0) Ur Leukocyte Esterase Negative (Negative) Urine RBC 0-2 (0-2) Urine WBC 0-2 (0-5) Ur Squamous Epith Cells Few (None-Few) Amorphous Sediment Moderate A (None) Urine Bacteria Few A (None) Fine Granular Casts Few A (None) Digoxin 2.2 H (0.8-2.0) ng/mL SARS-CoV-2 (PCR) Negative SARS-CoV-2 (Negative) Influenza Type A (PCR) Negative PCR FLU A (Negative) Influenza Type B (PCR) Negative PCR FLU B (Negative) RSV (PCR) Negative PCR RSV (Negative) Imaging Data Chest x-ray: Attestation: I have reviewed the pertinent imaging results. Radiologist's impression: TECHNIQUE: Chest radiograph 2 views COMPARISON: 01/07/2024 FINDINGS: Mediastinum: The mediastinum is normal in appearance. The heart silhouette is normal in size and morphology. Lung: Bibasilar consolidation with bilateral pleural effusions are noted without significant change. No pneumothorax is identified. Bone and Soft tissue: Unremarkable for age. IMPRESSION: 1. Bibasilar consolidation with bilateral pleural effusions are noted without significant change. CT scan - abdomen: Attestation: I have reviewed the pertinent imaging results. Radiologist's impression: CT abdomen and pelvis without contrast. COMPARISON: None. FINDINGS: Lower chest: Partially visualized pleural effusions, at least moderate in volume, with underlying atelectasis. Small to moderate pericardial effusion. Noncontrast technique limits solid organ evaluation. Liver: Multiple cystic hepatic lesions and other subcentimeter hypodensities, too small characterize. Gallbladder and bile ducts: Cholelithiasis. No evident biliary ductal dilatation. Pancreas: Diffuse calcification compatible with sequelae of chronic pancreatitis. Spleen: Moderate to severe splenomegaly, measuring up to 18.8 cm in craniocaudal extent. Adrenal glands: Unremarkable. Kidneys: Normal in size. No hydronephrosis. GI tract: No evident acute abnormalities. Vasculature: Abdominal aorta is normal in caliber. Lymph nodes: No lymphadenopathy. Peritoneum/Abdominal Wall: There is anasarca with fat stranding throughout the abdominopelvic cavity, most pronounced in the presacral space. There is asymmetric intermediate density thickening of the left abdominal wall, which is ill-defined on this noncontrast examination, but for reference, measures approximately 13.6 x 3.9 cm transaxially (). Pelvis: Prostatomegaly with mild diffuse urinary bladder wall thickening. Bones: Unremarkable for age. IMPRESSION: 1. There is asymmetric intermediate density left lateral abdominal wall thickening, which is nonspecific, and could reflect a hematoma or solid lesion. This could be further characterized with targeted ultrasound or contrast-enhanced cross-sectional imaging. 2. There is anasarca with moderate bilateral pleural effusions and a small to moderate pericardial effusion. 3. Moderate to severe splenomegaly, which may be related to the reported leukemia. ECG Data Attestation: I personally reviewed and interpreted this ECG as follows: Discharge Plan Discharge Clinical Impression: Atrial flutter with rapid ventricular response, Heart failure with preserved ejection fraction, Increased thyroid stimulating hormone (TSH) level, Abdominal wall mass of left flank, Anasarca Patient Disposition: Admitted As Observation
[2024-01-19 18:24] LABS: Albumin* 3.4 g/dL (3.3-5.0); Chloride* 99 mmol/L (96-114)
[2024-01-19 18:25] LABS: Potassium* 4.5 mmol/L (3.6-5.1); Sodium* 133 mmol/L (135-149)
[2024-01-19 18:26] LABS: Bilirubin Direct* 0.2 mg/dL (0.0-0.5); Bilirubin Total* 0.8 mg/dL (0.1-1.5)
[2024-01-19 18:27] LABS: Alanine Aminotransferase* 16 U/L (4-50); Alkaline Phosphatase* 107 U/L (40-150); Aspartate Amino Transferase* 50 U/L (12-35); Creatinine* 1.8 mg/dL (0.5-1.5); Estimated Glomerular Filt Rate 40 ml/min; Lipase* 55 U/L (23-300); Slide Review Reflex Yes; Total Protein* 10.5 g/dL (6.0-8.3)
[2024-01-19 18:28] LABS: Anion Gap 7 mEq/L (7-15); Blood Urea Nitrogen* 37 mg/dL (7-30); Calcium* 8.8 mg/dL (8.4-10.6); Carbon Dioxide* 27 mmol/L (20-32); Glucose* 113 mg/dL (60-115)
[2024-01-19 18:31] LABS: C Reactive Protein* 3.9 mg/dL (0.5-1.0)
[2024-01-19 18:52] LABS: PCR FLU A Negative PCR FLU A (Negative); PCR FLU B Negative PCR FLU B (Negative); PCR RSV Negative PCR RSV (Negative); SARS PCR* Negative SARS-CoV-2 (Negative)
[2024-01-19 18:53] LABS: NT Pro B Type NatriureticPept* 3600 pg/mL; Troponin I* < 0.01 ng/mL (0.01-0.04)
[2024-01-19] MEDS: FUROSEMIDE 10 MG/ML inj 40 MG IVP (18:58)
[2024-01-19 19:37] LABS: Digoxin* 2.2 ng/mL (0.8-2.0)
[2024-01-19 19:53] LABS: Slide Review Acceptable Review (Acceptable)
[2024-01-19 20:16] LABS: Appearance Urine Clear (Clear); Bilirubin Urine Negative (Negative); Blood Urine Negative (Negative); Color Urine Yellow (Yellow); Glucose Urine Negative (Negative); Ketones Urine Negative (Negative); Leukocyte Esterase Urine Negative (Negative); Nitrite Urine Negative (Negative); Protein Urine Negative (Negative); Specific Gravity Urine 1.015 (1.000-1.030); Urobilinogen Urine 0.2 (0.2-1.0)
[2024-01-19 20:29] LABS: Amorphous Sediment Urine Moderate; Bacteria Urine Few; Fine Granular Casts Urine Few; RBC Urine 0-2 (0-2); Squamous Epithelial Cell Urine Few (None-Few); WBC Urine 0-2 (0-5)
[2024-01-19] MEDS: OXYCODONE 5 MG TABLET 2.5 MG PO (20:37)
--- NOTE | 2024-01-19 20:57 | PM.IMHP1 ---
Hospitalist- H&P: KEN History of Present Illness Date Seen: 01/19/24 Chief complaint: Abdominal pain/distension, feet swollen Narrative: Jacoby Alba is a 68 year old male with recent hospitalization, January 05 to January 08, for atrial flutter with RVR, heart failure and untreated acute myelogenous leukemia and COPD presents for evaluation of abdominal pain and worsening breathing. Has severe orthopnea. He is not aware of any chest pain or trouble breathing. He has left-sided abdominal pain. No nausea and vomiting. He was hospitalized here on January 05 with atrial flutter and rapid ventricular response. At that time he was seen to be in heart failure. He was treated with diuretics and rate control. Rate control was obtained with metoprolol 100 b.i.d., digoxin 0.125 mg daily and diltiazem 240 mg in the morning and 120 mg in the evening. Volume control was furosemide 40 mg once a day with potassium 20 mEq daily. Was prescribed Eliquis 2.5 mg b.i.d. for stroke prophylaxis and he also has a prescription for Xarelto 15 mg daily that he was also taking. He is not aware of any bleeding except a bloody nose a couple days ago. Since discharge he and his report he is bed somewhat dyspneic but gradually getting worse. He was seen in clinic on the with an O2 sat of 85%. He is developed increasing abdominal pain on his left side. He has been able to eat and drink and his bowels have been working. He has no awareness of tachycardia. He reports he is taking his medications though he cannot tell me how he is taking him or if he can remember to take come. He has not allowed his to have any involvement with monitoring her managing his medications despite her attempts to do so. [facility] Medical History (Updated 01/19/24 @ 21:25 by Chung Jack MD) Heart failure with preserved ejection fraction ?I50.30 - Unspecified diastolic (congestive) heart failure (ICD-10) Malnutrition ?E46 - Unspecified protein-calorie malnutrition (ICD-10) Anasarca ?R60.1 - Generalized edema (ICD-10) CKD stage 3b, GFR 30-44 ml/min ?N18.32 - Chronic kidney disease, stage 3b (ICD-10) Heart failure ?I50.9 - Heart failure, unspecified (ICD-10) Atrial flutter with rapid ventricular response ?I48.92 - Unspecified atrial flutter (ICD-10) COPD (chronic obstructive pulmonary disease) ?J44.9 - Chronic obstructive pulmonary disease, unspecified (ICD-10) Surgical History Status post debridement ?Z98.890 - Other specified postprocedural states (ICD-10) Social History Narrative: He lives in [place] with his and 2 adult children. is healthcare power of assistant district attorney. Code status is full. Long-time smoker having quit for days ago. Quit using alcohol and recreational drugs in 1985. 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 What is your current living situation?: I presently have a place to live Problems where you live: no known problems Problems where you live details: na In the past 12 months, utilities in danger of being shut off: no In past 12 months, lack of transportation kept you from medical appts, meetings, work, or getting things needed for daily living: no In the past 12 mos, have been you worried that your food would run out before you had money to buy more?: never true In the past 12 mos, the food you bought just didn't last and you didn't have money to buy more?: never true Highest level of school completed/degree received: GED or equivalent Smoking Status: Former smoker What tobacco products do you use: cigarettes Smoking packs per day: 1 Smoking cigarettes per day: 20.0 Smoking quit date/years: <= 15 years ago Nicotine containing products detail: pt stated he quit smoking 3 days ago, 01/03/2024 How often do you have a drink containing alcohol: never AUDIT-C Alcohol total score: 0 Non-prescribed substance use: denies use Caffeine: Yes How often does anyone, including family, friends and others, physically hurt you: never How often does anyone, including family, friends and others, insult or talk down to you: never How often does anyone, including family, friends and others, threaten you with harm: never How often does anyone, including family, friends and others, scream or curse at you: never Meds Home Medications and Allergies Allergies Allergy/AdvReac Type Severity Reaction Status Date / Time No Known Drug Allergies Allergy Verified 01/15/24 09:42 Exam Narrative: Exam Narrative: He is alert and appears in mild respiratory distress with tachypnea. He is sitting upright and does not tolerate supine positioning. He is able to give his history though forgetful of most details of recent medical care. Head is without trauma. Respirations with evidence of bibasilar effusions and egophony and dullness to percussion. Upper lung lee are clear without wheezing. Cardiovascular: S1, S2, regular tachycardia. Abdomen: Bowel sounds are present. Entire left side of the abdomen is quite tender to touch with feeling of induration in the abdominal wall. Right-sided the abdomen is nontender and there is no peritonitis. Legs with 3 to 4+ edema bilaterally. Ulcer on his right calf is unchanged from 2 weeks ago. About 5 x 15 cm. Slight sero-sanguinous drainage on the dressing. Const: Vital Signs, click to edit/add: Vital Signs - 24 hr 01/19/24 16:55 01/19/24 17:05 01/19/24 17:12 Temperature 98.2 F Pulse Rate Pulse Rate [Pulse Oximeter] 143 H Respiratory Rate 24 Blood Pressure 132/92 H Blood Pressure [Ri ght Upper Arm] 110/76 Pulse Oximetry 90 92 Oxygen Delivery Me thod Room Air Room Air 01/19/24 17:31 01/19/24 17:46 01/19/24 17:47 Temperature Pulse Rate 143 H 143 H Pulse Rate [Pulse Oximeter] Respiratory Rate 34 H Blood Pressure 123/82 125/81 Blood Pressure [Ri ght Upper Arm] Pulse Oximetry 89 90 Oxygen Delivery Me thod Room Air Room Air Room Air 01/19/24 18:17 01/19/24 18:20 01/19/24 18:30 Temperature Pulse Rate 140 H 140 H 141 H Pulse Rate [Pulse Oximeter] Respiratory Rate 36 H 34 H Blood Pressure Blood Pressure [Ri ght Upper Arm] Pulse Oximetry 92 89 89 Oxygen Delivery Me thod Room Air Room Air Room Air 01/19/24 18:34 01/19/24 18:44 01/19/24 18:45 Temperature Pulse Rate 142 H 142 H Pulse Rate [Pulse Oximeter] Respiratory Rate 32 H Blood Pressure 121/85 Blood Pressure [Ri ght Upper Arm] Pulse Oximetry 90 89 Oxygen Delivery Me thod Room Air Room Air Room Air 01/19/24 19:00 01/19/24 19:03 01/19/24 19:15 Temperature Pulse Rate 141 H 142 H 142 H Pulse Rate [Pulse Oximeter] Respiratory Rate 32 H Blood Pressure 121/77 Blood Pressure [Ri ght Upper Arm] Pulse Oximetry 89 90 89 Oxygen Delivery Me thod Room Air Room Air 01/19/24 19:31 01/19/24 20:01 Temperature Pulse Rate Pulse Rate [Pulse Oximeter] Respiratory Rate Blood Pressure 133/100 H 133/93 H Blood Pressure [Ri ght Upper Arm] Pulse Oximetry Oxygen Delivery Me thod Documenting provider has reviewed patient's vital signs: yes Hospitalist - H&P: Result Labs Labs: Short CBC 01/19/24 Range/Units 17:30 WBC 4.12 L (4.50-11.00) K/uL Hgb 9.2 L (13.5-17.5) gm/dL Hct 32.2 L (37.0-53.0) % Plt Count 184 (140-440) K/uL BMP 01/19/24 17:30 Sodium 133 L Potassium 4.5 Chloride 99 Carbon Dioxide 27 BUN 37 H Creatinine 1.8 H Glucose 113 Calcium 8.8 Cardiac Enzymes 01/19/24 Range/Units 17:30 Troponin I < 0.01 L (0.01-0.04) ng/mL Liver Function 01/19/24 Range/Units 17:30 Total Bilirubin 0.8 (0.1-1.5) mg/dL Direct Bilirubin 0.2 (0.0-0.5) mg/dL AST 50 H (12-35) U/L ALT 16 (4-50) U/L Alkaline Phosphatase 107 (40-150) U/L Albumin 3.4 (3.3-5.0) g/dL Urine 01/19/24 Range/Units 20:00 Urine Color Yellow (Yellow) Urine Appearance Clear (Clear) Urine pH 5.0 (5.0-8.5) Ur Specific [place] 1.015 (1.000-1.030) Urine Protein Negative (Negative) Urine Glucose (UA) Negative (Negative) Imaging CT scan - abdomen: Radiologist's impression: INDICATION: LLQ PAIN. SOB. HX OF ACUTE MYELOID LEUKEMIA. TECHNIQUE: CT abdomen and pelvis without contrast. COMPARISON: None. FINDINGS: Lower chest: Partially visualized pleural effusions, at least moderate in volume, with underlying atelectasis. Small to moderate pericardial effusion. Noncontrast technique limits solid organ evaluation. Liver: Multiple cystic hepatic lesions and other subcentimeter hypodensities, too small characterize. Gallbladder and bile ducts: Cholelithiasis. No evident biliary ductal dilatation. Pancreas: Diffuse calcification compatible with sequelae of chronic pancreatitis. Spleen: Moderate to severe splenomegaly, measuring up to 18.8 cm in craniocaudal extent. Adrenal glands: Unremarkable. Kidneys: Normal in size. No hydronephrosis. GI tract: No evident acute abnormalities. Vasculature: Abdominal aorta is normal in caliber. Lymph nodes: No lymphadenopathy. Peritoneum/Abdominal Wall: There is anasarca with fat stranding throughout the abdominopelvic cavity, most pronounced in the presacral space. There is asymmetric intermediate density thickening of the left abdominal wall, which is ill-defined on this noncontrast examination, but for reference, measures approximately 13.6 x 3.9 cm transaxially (). Pelvis: Prostatomegaly with mild diffuse urinary bladder wall thickening. Bones: Unremarkable for age. IMPRESSION: 1. There is asymmetric intermediate density left lateral abdominal wall thickening, which is nonspecific, and could reflect a hematoma or solid lesion. This could be further characterized with targeted ultrasound or contrast-enhanced cross-sectional imaging. 2. There is anasarca with moderate bilateral pleural effusions and a small to moderate pericardial effusion. 3. Moderate to severe splenomegaly, which may be related to the reported leukemia. Assessment and Plan Assessment and plan (1) Atrial flutter with rapid ventricular response: Problem comment: Rate has been difficult to control. Discharged 10 days ago on metoprolol 100 mg b.i.d., diltiazem 240 in the morning and 120 in the evening and digoxin 0.125 mg daily. Even on that cocktail of medicines is not clear he had adequate rate control. He is also now dig toxic with an elevated digoxin level of 2.3. I anticipate rate control is going to be difficult. Tonight will use diltiazem drip to titrate rate control. May need cardiology assistance with rhythm control/cardioversion Status: Acute (2) Heart failure with preserved ejection fraction: Problem comment: Rate control, diuresis with furosemide drip, repeat echo. Status: Acute (3) Abdominal wall mass of left flank: Problem comment: CT shows a mass. Possible fluid collection such as hematoma verses other mass. This area is quite tender to palpation. Obtain ultrasound. May be hematoma from excess anticoagulation Status: Acute (4) CKD stage 3b, GFR 30-44 ml/min: Problem comment: Appears to be at a new baseline chronic kidney disease Status: Acute (5) AML (acute myeloid leukemia): Problem comment: Diagnosed summer. Declines oncology evaluation and treatment Status: Acute (6) Anemia: Problem comment: -Has iron deficiency but primarily has anemia from AML. -Becoming transfusion dependent. -s/p 2 units this hospitalization -no blood loss Status: Acute (7) Chronic wound of extremity: Problem comment: Chronic lateral right leg ulcer. Slowly healing over the last year. Cared for in [facility] on Tuesdays. Continue routine outpatient wound care plan Status: Acute (8) Increased thyroid stimulating hormone (TSH) level: Problem comment: -probable sick euthyroid Status: Acute (9) Tobacco dependence: Problem comment: -long lifetime smoker -quit 01/04/24 -thinks the nicotine patch gives him bloody noses Status: Acute (10) COPD (chronic obstructive pulmonary disease): Problem comment: Does not appear to be significantly contributing to current respiratory distress Status: Acute (11) Digoxin toxicity: Problem comment: Digoxin level 2.5 4 days ago and 2.3 now. Hold digoxin for the next few days. If necessary for rate control reduced dose by dosing every other day. Status: Acute (12) Excessive anticoagulation: Problem comment: Has been taking both Xarelto and Eliquis at home for the last 10 days. Will hold both for at least a day and then resume Eliquis if no bleeding complications Status: Acute (13) Malnutrition: Problem comment: Patient is losing weight despite having fairly severe anasarca. Lean body mass is substantially decreasing due to malnutrition. Continue to monitor with diuresis Status: Acute (14) Anasarca: Problem comment: Likely primarily due to heart failure Status: Acute Plan Patient is admitted to CCU for management of heart failure with a flutter and RVR, anasarca managed with diltiazem drip, and furosemide drip. Total Time Spent Total Time Spent: Total time spent today is 100 minutes in critical care evaluation and management
[2024-01-19] MEDS: DEXTROSE 5% IVPB (21:21)
[2024-01-19] MEDS: FUROSEMIDE IVPB (21:21)
[2024-01-19] MEDS: dilTIAZem HCL 125 MG in 0.9 % SODIUM CHLORIDE 100 ml 100 ML IVPB (21:49)
[2024-01-19] MEDS: POTASSIUM CHLORIDE 10 MEQ CAPSULE ER 20 MEQ PO (22:17)
[2024-01-19] MEDS: METOPROLOL TARTRATE 100 MG TABLET PO (22:17)
[2024-01-19] MEDS: SODIUM CHLORIDE 0.9 % (FLUSH) 10 ML SYRINGE 5 ML IVF (22:18)
[2024-01-20] VITALS (45 sets, daily range): BP systolic 100–148; BP diastolic 53–106; PULSE 64–149; RESP 22–40; TEMP 36.6–37.2; O2SAT 84–94; BMI 28.3
--- NOTE | 2024-01-20 | CRLHL7_ITS ---
For Patients: As a result of the Century Cures Act, medical imaging exams and procedure reports are released immediately into your electronic medical record. You may view this report before your referring provider. If you have questions, please contact your health care provider. Indication: Left abdominal wall mass or fluid collection. Technique: Ultrasound abdomen soft tissue limited with color Doppler analysis. Comparison: None. Findings/Impression: In the left abdominal wall area of concern is a circumscribed oval-shaped mass measuring 6 x 4 x 3 cm. This is either solid or complex cystic. There is no color Doppler blood flow within this lesion. Therefore, this lesion is nonspecific and can not be further characterized by ultrasound. A hematoma is possible. Neoplastic lesion is less likely but not excluded. This could be further evaluated with a follow-up ultrasound, CT or MRI. Dictated by Jared Cardenas MD @ 01/20/2024 1:22:40 AM (Electronically Signed)
[2024-01-20] MEDS: OXYCODONE 5 MG TABLET 2.5 MG PO ×3 (00:52→12:16)
[2024-01-20] MEDS: DEXTROSE 5% IVPB (06:02)
[2024-01-20] MEDS: FUROSEMIDE IVPB (06:02)
[2024-01-20 06:29] LABS: Basophils Absolute Auto 0.08 K/uL (0.00-0.30); Basophils Percent Auto 1.1 % (0.0-3.0); Hematocrit 35.2 % (37.0-53.0); Hemoglobin* 9.8 gm/dL (13.5-17.5); Immature Granulocytes Abs Auto 0.51 K/uL (0.00-0.30); Immature Granulocytes Pct Auto 7.2 %; Lymphocytes Percent Auto 31.2 % (20-44); Mean Corpuscular HGB Conc 28 gm/dL (32-36); Mean Corpuscular Hemoglobin 23 pg (26-34); Mean Corpuscular Volume 81 fL (80-100); Monocytes Percent Auto 43.1 % (0.0-11.0); Neutrophils Percent Auto 17.4 % (42.0-72.0); RDW Coefficient of Variation % 22.4 % (11.5-15.5); Red Blood Count 4.34 m/uL (4.30-5.90); White Blood Count* 7.06 K/uL (4.50-11.00)
[2024-01-20 06:47] LABS: C Reactive Protein* 1.5 mg/dL (0.5-1.0)
--- NOTE | 2024-01-20 06:51 | PC.NURSE ---
End of shift [id number]: Assumed care of patient at 2300. Pt has been A&O and afebrile. He is SBA for transfers. VSS with exception to tachycardia. PIV in right AC infusing Lasix gtt @ 10 mL/hr and PIV in left hand infusing Dilt gtt. Diltiazem titrated throughout the night based on pt?s HR and response. Dilt gtt was stopped from [id number] as patient?s HR was ranging from 70s-80s bpm. At 629, HR spiked up to the 130s again so Dilt gtt was resumed; see eMAR for full titration schedule. TELE read A. Flutter throughout the night. Pt denies any nausea or dizziness but reports pain in left abdominal area as well as bilateral lower legs. Chronic ulcer on right calf covered with pt?s own dressing- refused a dressing change by this RN. BLL have 3+ edema, encouraged elevation but pt would keep putting footrest down in recliner. Abd US done at bedside, ECHO to be done today. PRN oxy given x1 dose @ 0050 for left sided abd pain prior to the ultrasound. Posterior lung bases have some fine expiratory crackles, pt has a productive cough. He?s been tachypneic all night but does not c/o SOB or dizziness. SpO2 maintained > 87% on RA; pt has h/o COPD & is a current smoker. ?
[2024-01-20 07:13] LABS: Platelet Count* 120 K/uL (140-440)
[2024-01-20 07:14] LABS: Slide Review Reflex Yes
[2024-01-20 07:42] LABS: Slide Review Acceptable Review (Acceptable)
[2024-01-20 07:59] LABS: Blood Urea Nitrogen* 42 mg/dL (7-30)
[2024-01-20 08:00] LABS: Anion Gap 11 mEq/L (7-15); Calcium* 8.5 mg/dL (8.4-10.6); Carbon Dioxide* 23 mmol/L (20-32); Chloride* 98 mmol/L (96-114); Creatinine* 2.4 mg/dL (0.5-1.5); Estimated Glomerular Filt Rate 29 ml/min; Glucose* 101 mg/dL (60-115); Potassium* 4.4 mmol/L (3.6-5.1); Sodium* 132 mmol/L (135-149)
--- NOTE | 2024-01-20 08:00 | PC.NURSE ---
When asking patient orientation questions, patients response was I am in [place] and it is night time. Reoriented patient to current place and time. Patient also stated I need an antibiotic for my cellulitis. No cellulitis noted. Hospice Care Consultant attempted to undo dressings on lower extremities but patient refused at this time. Patient's saturations were 84% on RA. Notified MD and she said to place on 1L until we get VBGs.
[2024-01-20 08:10] LABS: Lactate* 2.5 mmol/L (0.5-1.9)
[2024-01-20] MEDS: dilTIAZem 120 MG CAP.ER.24H 240 MG PO (08:26)
[2024-01-20] MEDS: POTASSIUM CHLORIDE 10 MEQ CAPSULE ER 20 MEQ PO (08:26)
[2024-01-20] MEDS: SENNOSIDES/DOCUSATE TABLET PO (08:27)
[2024-01-20] MEDS: METOPROLOL TARTRATE 100 MG TABLET PO ×2 (08:27→19:49)
[2024-01-20] MEDS: 0.9 % SODIUM CHLORIDE 500 ML 500 ML IV (08:57)
--- NOTE | 2024-01-20 09:00 | PC.NURSE ---
Voice Systems Engineer asked if he had gotten a hold of his since talking with Dr. Domínguez. Patient was in his chair sleeping. Patient was arousable and stated he had not. Asked patient if he needed assistance with calling his . Patient stated no. Handed patient the phone and patient proceeded to dial random numbers and pushed about 30 different numbers then put phone up to ear. Asked patient if pattern chart writer could help him dial her number. Patient declined many times but eventually allowed pattern chart writer to dial her number. No answer. Notified MD of this assessment. MD requested that we call to have her come in. Was able to get a hold of her and she stated she will be in around 11am.
[2024-01-20 09:04] LABS: HCO3 VBG 24 mmol/L (21-28); PCO2 VBG 42 mmHG (40-50); pH VBG 7.376 (7.32-7.43)
--- NOTE | 2024-01-20 09:21 | PC.NURSE ---
Provider is wanting patient to call his to discuss plan. Patient is struggling to dial the phone. I place a call to his Lissett and left a voicemail message asking her to call us back here.
--- NOTE | 2024-01-20 09:45 | PC.NURSE ---
did call patient's daughter to see if there is another way to contact patient's . Daughter did provide her cell phone number [phone]. Called did reach his Lissett and asked her on behalf of the provider to come in so that we can discuss care goals. Patient's will be here in about an hour.
[2024-01-20] MEDS: dilTIAZem HCL 125 MG in 0.9 % SODIUM CHLORIDE 100 ml 100 ML 10 MG IVPB (11:08)
[2024-01-20 12:01] LABS: Lactate* 4.9 mmol/L (0.5-1.9)
--- NOTE | 2024-01-20 13:44 | P.IMCN_ITS ---
Date of Consult Consult date: 01/20/24 Requesting Physician: Hospitalist Primary Care Provider: David Gordon MD Consult Narrative Reason for consult: patient admitted with know wound to right leg Narrative: Jacoby Alba is a 68 year old male known to wound services and this chart writer. wound to RLE. 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 Today on entering the room he was responsive to this chart writer, and was oriented to this chart writer. He he complied with guided cares. Reports from nursing as well as patient's , who is present at the bedside, patient has been confused experiencing delirium, and aggressive toward staff. In speaking with patient's and hospitalist it does sound as if patient will be transition to hospice/comfort cares. Wound Services was consulted to evaluate patient's wound, as patient refused to lower any other staff, but this chart writer to complete his wound .care Review of Systems Status of ROS: Reports: 6 or more systems reviewed and unremarkable except as noted in History and below [facility] Medical History (Updated 01/30/24 @ 10:21 by Brittney Rodrigues [facility]) Palliative care encounter ?Z51.5 - Encounter for palliative care (ICD-10) Heart failure with preserved ejection fraction ?I50.30 - Unspecified diastolic (congestive) heart failure (ICD-10) Malnutrition ?E46 - Unspecified protein-calorie malnutrition (ICD-10) Anasarca ?R60.1 - Generalized edema (ICD-10) CKD stage 3b, GFR 30-44 ml/min ?N18.32 - Chronic kidney disease, stage 3b (ICD-10) Heart failure ?I50.9 - Heart failure, unspecified (ICD-10) Atrial flutter with rapid ventricular response ?I48.92 - Unspecified atrial flutter (ICD-10) COPD (chronic obstructive pulmonary disease) ?J44.9 - Chronic obstructive pulmonary disease, unspecified (ICD-10) Surgical History Status post debridement ?Z98.890 - Other specified postprocedural states (ICD-10) Social History Narrative: He lives in [place] with his and 2 adult children. is healthcare power of health care attorney. Code status is full. Long-time smoker having quit for days ago. Quit using alcohol and recreational drugs in 1985. 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 What is your current living situation?: I presently have a place to live Problems where you live: no known problems Problems where you live details: na In the past 12 months, utilities in danger of being shut off: no In past 12 months, lack of transportation kept you from medical appts, meetings, work, or getting things needed for daily living: no In the past 12 mos, have been you worried that your food would run out before you had money to buy more?: never true In the past 12 mos, the food you bought just didn't last and you didn't have money to buy more?: never true Highest level of school completed/degree received: Associate degree: academic program Smoking Status: Current some day smoker What tobacco products do you use: cigarettes Smoking packs per day: 1 Smoking cigarettes per day: 20.0 Smoking quit date/years: <= 15 years ago Nicotine containing products detail: pt stated he quit smoking 3 days ago, 01/03/2024 How often do you have a drink containing alcohol: never AUDIT-C Alcohol total score: 0 Non-prescribed substance use: denies use Caffeine: Yes (soda) How often does anyone, including family, friends and others, physically hurt you : never How often does anyone, including family, friends and others, insult or talk down to you: never How often does anyone, including family, friends and others, threaten you with harm: never How often does anyone, including family, friends and others, scream or curse at you: never service: No Meds Home Medications and Allergies Allergies Allergy/AdvReac Type Severity Reaction Status Date / Time No Known Drug Allergies Allergy Verified 01/15/24 09:42 Exam Narrative: Exam Narrative: General: NAD, alert to self and this chart writer. Pulmonary: labored breathing, on 2L NC BLE: increased edema compared to last week in clinic. Pitting 2-3+ Per patient ( agreed), it improved from when he was initially admitted to the hospital. RLE: stable, pale granulation. periwound WNL. Wound cleansed and dressing changed as ordered. Psych: alert to self and this chart writer Const: Vital Signs, click to edit/add: Vital Signs - 24 hr 01/19/24 16:55 01/19/24 17:05 01/19/24 17:12 Temperature 98.2 F Pulse Rate Pulse Rate [Left P ulse Oximeter] Pulse Rate [Pulse Oximeter] 143 H Respiratory Rate 24 Blood Pressure 132/92 H Blood Pressure [Le ft Arm] Blood Pressure [Ri ght Upper Arm] 110/76 Pulse Oximetry 90 92 Oxygen Delivery Me thod Room Air Room Air Oxygen Flow Rate 01/19/24 17:31 01/19/24 17:46 01/19/24 17:47 Temperature Pulse Rate 143 H 143 H Pulse Rate [Left P ulse Oximeter] Pulse Rate [Pulse Oximeter] Respiratory Rate 34 H Blood Pressure 123/82 125/81 Blood Pressure [Le ft Arm] Blood Pressure [Ri ght Upper Arm] Pulse Oximetry 89 90 Oxygen Delivery Me thod Room Air Room Air Room Air Oxygen Flow Rate 01/19/24 18:17 01/19/24 18:20 01/19/24 18:30 Temperature Pulse Rate 140 H 140 H 141 H Pulse Rate [Left P ulse Oximeter] Pulse Rate [Pulse Oximeter] Respiratory Rate 36 H 34 H Blood Pressure Blood Pressure [Le ft Arm] Blood Pressure [Ri ght Upper Arm] Pulse Oximetry 92 89 89 Oxygen Delivery Me thod Room Air Room Air Room Air Oxygen Flow Rate 01/19/24 18:34 01/19/24 18:44 01/19/24 18:45 Temperature Pulse Rate 142 H 142 H Pulse Rate [Left P ulse Oximeter] Pulse Rate [Pulse Oximeter] Respiratory Rate 32 H Blood Pressure 121/85 Blood Pressure [Le ft Arm] Blood Pressure [Ri ght Upper Arm] Pulse Oximetry 90 89 Oxygen Delivery Me thod Room Air Room Air Room Air Oxygen Flow Rate 01/19/24 19:00 01/19/24 19:03 01/19/24 19:15 Temperature Pulse Rate 141 H 142 H 142 H Pulse Rate [Left P ulse Oximeter] Pulse Rate [Pulse Oximeter] Respiratory Rate 32 H Blood Pressure 121/77 Blood Pressure [Le ft Arm] Blood Pressure [Ri ght Upper Arm] Pulse Oximetry 89 90 89 Oxygen Delivery Me thod Room Air Room Air Oxygen Flow Rate 01/19/24 19:31 01/19/24 20:01 01/19/24 20:09 Temperature Pulse Rate Pulse Rate [Left P ulse Oximeter] Pulse Rate [Pulse Oximeter] Respiratory Rate Blood Pressure 133/100 H 133/93 H Blood Pressure [Le ft Arm] Blood Pressure [Ri ght Upper Arm] Pulse Oximetry 91 Oxygen Delivery Me thod Oxygen Flow Rate 01/19/24 20:15 01/19/24 20:15 01/19/24 21:25 Temperature 97.3 F L Pulse Rate Pulse Rate [Left P ulse Oximeter] 138 H 144 H Pulse Rate [Pulse Oximeter] Respiratory Rate 24 24 Blood Pressure Blood Pressure [Le ft Arm] 140/91 H 141/90 H Blood Pressure [Ri ght Upper Arm] Pulse Oximetry 90 90 Oxygen Delivery Me thod Room Air Room Air Oxygen Flow Rate 01/19/24 21:50 01/19/24 21:55 01/19/24 22:00 Temperature Pulse Rate Pulse Rate [Left P ulse Oximeter] 143 H 143 H 143 H Pulse Rate [Pulse Oximeter] Respiratory Rate Blood Pressure Blood Pressure [Le ft Arm] 121/82 130/83 140/91 H Blood Pressure [Ri ght Upper Arm] Pulse Oximetry Oxygen Delivery Me thod Oxygen Flow Rate 01/19/24 22:05 01/19/24 22:10 01/19/24 22:15 Temperature Pulse Rate Pulse Rate [Left P ulse Oximeter] 143 H 143 H 144 H Pulse Rate [Pulse Oximeter] Respiratory Rate Blood Pressure Blood Pressure [Le ft Arm] 130/89 139/89 107/86 Blood Pressure [Ri ght Upper Arm] Pulse Oximetry Oxygen Delivery Me thod Oxygen Flow Rate 01/19/24 22:20 01/19/24 22:25 01/19/24 22:30 Temperature Pulse Rate Pulse Rate [Left P ulse Oximeter] 144 H 144 H 144 H Pulse Rate [Pulse Oximeter] Respiratory Rate Blood Pressure Blood Pressure [Le ft Arm] 132/92 H 123/82 123/82 Blood Pressure [Ri ght Upper Arm] Pulse Oximetry Oxygen Delivery Me thod Oxygen Flow Rate 01/19/24 22:35 01/19/24 22:40 01/19/24 22:45 Temperature Pulse Rate 144 H Pulse Rate [Left P ulse Oximeter] 143 H 145 H Pulse Rate [Pulse Oximeter] Respiratory Rate Blood Pressure Blood Pressure [Le ft Arm] 128/87 127/92 H Blood Pressure [Ri ght Upper Arm] Pulse Oximetry Oxygen Delivery Me thod Oxygen Flow Rate 01/19/24 22:45 01/19/24 22:50 01/19/24 23:00 Temperature 98.1 F Pulse Rate Pulse Rate [Left P ulse Oximeter] 144 H 143 H 143 H Pulse Rate [Pulse Oximeter] Respiratory Rate 28 H Blood Pressure Blood Pressure [Le ft Arm] 114/74 120/86 121/81 Blood Pressure [Ri ght Upper Arm] Pulse Oximetry 92 Oxygen Delivery Me thod Room Air Oxygen Flow Rate 01/19/24 23:00 01/19/24 23:00 01/20/24 00:00 Temperature Pulse Rate Pulse Rate [Left P ulse Oximeter] 136 H 149 H Pulse Rate [Pulse Oximeter] Respiratory Rate 30 H 30 H Blood Pressure Blood Pressure [Le ft Arm] 130/91 H Blood Pressure [Ri ght Upper Arm] Pulse Oximetry 93 Oxygen Delivery Me thod Room Air Oxygen Flow Rate 01/20/24 00:07 01/20/24 00:30 01/20/24 01:30 Temperature 98.3 F Pulse Rate Pulse Rate [Left P ulse Oximeter] 136 H 136 H 76 Pulse Rate [Pulse Oximeter] Respiratory Rate 30 H Blood Pressure Blood Pressure [Le ft Arm] 118/83 117/81 100/72 Blood Pressure [Ri ght Upper Arm] Pulse Oximetry 93 Oxygen Delivery Me thod Room Air Oxygen Flow Rate 01/20/24 02:17 01/20/24 02:30 01/20/24 03:00 Temperature 97.9 F Pulse Rate Pulse Rate [Left P ulse Oximeter] 70 80 74 Pulse Rate [Pulse Oximeter] Respiratory Rate 40 H Blood Pressure Blood Pressure [Le ft Arm] 124/72 118/53 L 110/79 Blood Pressure [Ri ght Upper Arm] Pulse Oximetry 88 Oxygen Delivery Me thod Room Air Oxygen Flow Rate 01/20/24 03:24 01/20/24 03:30 01/20/24 04:00 Temperature 98.4 F Pulse Rate 71 Pulse Rate [Left P ulse Oximeter] 76 72 Pulse Rate [Pulse Oximeter] Respiratory Rate 36 H Blood Pressure Blood Pressure [Le ft Arm] 134/82 106/71 Blood Pressure [Ri ght Upper Arm] Pulse Oximetry 88 Oxygen Delivery Me thod Room Air Oxygen Flow Rate 01/20/24 04:24 01/20/24 04:30 01/20/24 05:00 Temperature Pulse Rate Pulse Rate [Left P ulse Oximeter] 72 77 Pulse Rate [Pulse Oximeter] Respiratory Rate 36 H Blood Pressure Blood Pressure [Le ft Arm] 111/73 126/78 Blood Pressure [Ri ght Upper Arm] [facility]xim[facility] 01/20/24 05:30 01/20/24 06:00 01/20/24 06:32 Temperature 98.5 F Pulse Rate Pulse Rate [Left P ulse Oximeter] 72 77 136 H Pulse Rate [Pulse Oximeter] Respiratory Rate 36 H Blood Pressure Blood Pressure [Le ft Arm] 118/79 124/74 134/84 Blood Pressure [Ri ght Upper Arm] Pulse Oximetry 87 L [facility] Flow Rate 01/20/24 07:00 01/20/24 07:00 01/20/24 07:35 Temperature 98.6 F Pulse Rate Pulse Rate [Left P ulse Oximeter] 138 H 140 H Pulse Rate [Pulse Oximeter] Respiratory Rate 28 H 28 H Blood Pressure Blood Pressure [Le ft Arm] 148/106 H 148/106 H 134/81 Blood Pressure [Ri ght Upper Arm] Pulse Oximetry 84 L 85 L [facility] Room Air Oxygen Flow Rate 01/20/24 07:45 01/20/24 08:00 01/20/24 08:00 Temperature Pulse Rate Pulse Rate [Left P ulse Oximeter] 138 H Pulse Rate [Pulse Oximeter] Respiratory Rate 22 Blood Pressure Blood Pressure [Le ft Arm] 134/86 132/93 H Blood Pressure [Ri ght Upper Arm] Pulse Oximetry 86 L 84 L [facility] Room Air Oxygen Flow Rate 01/20/24 08:15 01/20/24 08:30 01/20/24 08:45 Temperature Pulse Rate Pulse Rate [Left P ulse Oximeter] 122 H 133 H 132 H Pulse Rate [Pulse Oximeter] Respiratory Rate Blood Pressure Blood Pressure [Le ft Arm] 135/85 135/85 133/76 Blood Pressure [Ri ght Upper Arm] Pulse Oximetry 87 L [facility]ula Oxygen Flow Rate 01/20/24 09:00 01/20/24 09:15 01/20/24 09:30 Temperature Pulse Rate Pulse Rate [Left P ulse Oximeter] 132 H 120 H 116 H Pulse Rate [Pulse Oximeter] Respiratory Rate Blood Pressure Blood Pressure [Le ft Arm] 126/84 126/80 122/82 Blood Pressure [Ri ght Upper Arm] Pulse Oximetry 88 90 Oxygen Delivery Me thod Nasal Cannula Nasal Cannula Oxygen Flow Rate 1 1 01/20/24 09:45 01/20/24 10:00 01/20/24 10:15 Temperature Pulse Rate Pulse Rate [Left P ulse Oximeter] 88 101 H 87 Pulse Rate [Pulse Oximeter] Respiratory Rate Blood Pressure Blood Pressure [Le ft Arm] 108/74 126/79 116/59 L Blood Pressure [Ri ght Upper Arm] Pulse Oximetry 90 93 93 Oxygen Delivery Me thod Nasal Cannula Nasal Cannula Nasal Cannula Oxygen Flow Rate 1 2 2 01/20/24 10:30 01/20/24 10:45 01/20/24 10:46 Temperature 98.9 F Pulse Rate 138 H Pulse Rate [Left P ulse Oximeter] 82 71 Pulse Rate [Pulse Oximeter] Respiratory Rate Blood Pressure Blood Pressure [Le ft Arm] 118/82 113/64 Blood Pressure [Ri ght Upper Arm] Pulse Oximetry 93 94 Oxygen Delivery Me thod Nasal Cannula Room Air Oxygen Flow Rate 2 01/20/24 11:00 01/20/24 11:15 01/20/24 11:30 Temperature Pulse Rate Pulse Rate [Left P ulse Oximeter] 68 72 65 Pulse Rate [Pulse Oximeter] Respiratory Rate 32 H Blood Pressure Blood Pressure [Le ft Arm] 103/53 L 112/79 115/77 Blood Pressure [Ri ght Upper Arm] Pulse Oximetry 88 Oxygen Delivery Me thod Room Air Oxygen Flow Rate 01/20/24 11:40 01/20/24 11:45 01/20/24 12:00 Temperature Pulse Rate 65 Pulse Rate [Left P ulse Oximeter] 68 72 Pulse Rate [Pulse Oximeter] Respiratory Rate Blood Pressure Blood Pressure [Le ft Arm] 121/73 109/69 Blood Pressure [Ri ght Upper Arm] Pulse Oximetry Oxygen Delivery Me thod Oxygen Flow Rate 01/20/24 12:15 01/20/24 12:30 01/20/24 12:45 Temperature Pulse Rate Pulse Rate [Left P ulse Oximeter] 65 67 69 Pulse Rate [Pulse Oximeter] Respiratory Rate Blood Pressure Blood Pressure [Le ft Arm] 112/60 111/62 117/80 Blood Pressure [Ri ght Upper Arm] Pulse Oximetry Oxygen Delivery Me thod Oxygen Flow Rate 01/20/24 13:00 01/20/24 13:30 Temperature Pulse Rate Pulse Rate [Left P ulse Oximeter] 67 64 Pulse Rate [Pulse Oximeter] Respiratory Rate Blood Pressure Blood Pressure [Le ft Arm] 130/84 114/67 Blood Pressure [Ri ght Upper Arm] Pulse Oximetry Oxygen Delivery Me thod Oxygen Flow Rate Documenting provider has reviewed patient's vital signs: yes Labs Labs: Short CBC 01/19/24 01/20/24 Range/Units 17:30 06:01 WBC 4.12 L 7.06 (4.50-11.00) K/uL Hgb 9.2 L 9.8 L (13.5-17.5) gm/dL Hct 32.2 L 35.2 L (37.0-53.0) % Plt Count 184 120 L (140-440) K/uL BMP 01/19/24 01/20/24 17:30 06:01 Sodium 133 L 132 L Potassium 4.5 4.4 Chloride 99 98 Carbon Dioxide 27 23 BUN 37 H 42 H Creatinine 1.8 H 2.4 H Glucose 113 101 Calcium 8.8 8.5 Cardiac Enzymes 01/19/24 Range/Units 17:30 Troponin I < 0.01 L (0.01-0.04) ng/mL Liver Function 01/19/24 Range/Units 17:30 Total Bilirubin 0.8 (0.1-1.5) mg/dL Direct Bilirubin 0.2 (0.0-0.5) mg/dL AST 50 H (12-35) U/L ALT 16 (4-50) U/L Alkaline Phosphatase 107 (40-150) U/L Albumin 3.4 (3.3-5.0) g/dL Urine 01/19/24 Range/Units 20:00 Urine Color Yellow (Yellow) Urine Appearance Clear (Clear) Urine pH 5.0 (5.0-8.5) Ur Specific [place] 1.015 (1.000-1.030) Urine Protein Negative (Negative) Urine Glucose (UA) Negative (Negative) Assessment and Plan Assessment and plan (1) Delirium: Problem comment: - due to poor perfusion Status: Acute (2) Heart failure with preserved ejection fraction: Problem comment: - 01/18 Rate control, diuresis with furosemide drip, repeat echo. Status: Acute (3) AML (acute myeloid leukemia): Problem comment: Diagnosed summer. Declines oncology evaluation and treatment Status: Acute (4) Non-pressure chronic ulcer of right calf with fat layer exposed: Status: Acute (5) Lower extremity edema: Status: Acute Plan will cancel future wound center appointments as patient is being transitioned to comfort cares. continue to follow wound care orders for dressing change if needed. Wound cleansed and dressing changed as ordered. New tubigrip applied Total Time Spent Total Time Spent: 40
[2024-01-20] MEDS: MORPHINE 10 MG/0.5 ML ORAL SOLN PO ×3 (13:57→22:02)
--- NOTE | 2024-01-20 14:13 | P.IMPN_ITS ---
Progress Note: A&P Assessment and plan (1) Palliative care encounter: Problem details: - 01/18 I discussed with patient and his ongoing plan of care and goals of care. He is opposed to any treatment for his AML including his 's herbal treatment. At the same time he is seeking relief from his heart failure symptoms, dyspnea, weakness, failure to thrive. Continue daily discussion about goals of care and expectations in light of his fairly severe symptomatic health problems - 01/19 HR was persistently elevated overnight. Patient increasingly dyspneic and poorly perfused. Lactate is increasing. Patient unable to engage further in goals of care discussions due to delirium. Goals of care discussion took place with his this morning in the patient's presence, but he did not engage with discussion due to delirium. In discussion with his , she has chosen comfort cares and if possible home with hospice. Will start comfort cares and see how he does overnight. Many family members are expected to arrive today. Status: Acute (2) Atrial flutter with rapid ventricular response: Problem details: - 01/18 Rate has been difficult to control. Discharged 10 days ago on metop rolol 100 mg b.i.d., diltiazem 240 in the morning and 120 in the evening and digoxin 0.125 mg daily. Even on that cocktail of medicines is not clear he had adequate rate control. He is also now dig toxic with an elevated digoxin level of 2.3. I anticipate rate control is going to be difficult. Tonight will use diltiazem drip to titrate rate control. May need cardiology assistance with rhythm control/cardioversion Status: Acute (3) Heart failure with preserved ejection fraction: Problem details: - 01/18 Rate control, diuresis with furosemide drip, repeat echo. Status: Acute (4) Abdominal wall mass of left flank: Problem details: CT shows a mass. Possible fluid collection such as hematoma verses other mass. This area is quite tender to palpation. US also equivocal. I spoke with consulting radiologist this morning (01/19) who favors hematoma. Status: Acute (5) CKD stage 3b, GFR 30-44 ml/min: Problem details: Appears to be at a new baseline chronic kidney disease Status: Acute (6) AML (acute myeloid leukemia): Problem details: Diagnosed summer. Declines oncology evaluation and treatment Status: Acute (7) Anemia: Problem details: -Has iron deficiency but primarily has anemia from AML. -Becoming transfusion dependent. -s/p 2 units this hospitalization -no blood loss Status: Chronic (8) Chronic wound of extremity: Problem details: Chronic lateral right leg ulcer. Slowly healing over the last year. Cared for in [facility] on Tuesdays. Continue routine outpatient wound care plan Status: Chronic (9) Increased thyroid stimulating hormone (TSH) level: Problem details: -probable sick euthyroid Status: Acute (10) Tobacco dependence: Problem details: -long lifetime smoker -quit 01/04/24 -thinks the nicotine patch gives him bloody noses Status: Chronic (11) COPD (chronic obstructive pulmonary disease): Problem details: Does not appear to be significantly contributing to current respiratory distress Status: Chronic (12) Malnutrition: Problem details: Patient is losing weight despite having fairly severe anasarca. Lean body mass is substantially decreasing due to malnutrition. Continue to monitor with diuresis Status: Chronic (13) Excessive anticoagulation: Problem details: - 01/18 Has been taking both Xarelto and Eliquis at home for the last 10 days. Will hold both for at least a day and then resume Eliquis if no bleeding complications Status: Acute (14) Digoxin toxicity: Problem details: - 01/18 Digoxin level 2.5 4 days ago and 2.3 now. Hold digoxin for the next few days. If necessary for rate control reduced dose by dosing every other day. Status: Acute (15) Anasarca: Problem details: Likely primarily due to heart failure Status: Acute (16) Delirium: Problem details: - due to poor perfusion Status: Acute Time Spent With Patient Total time spent: Today I spent 75 minutes rounding on the patient. 45 minutes spent in critical care time treating atrial fibrillation with RVR, heart failure with preserved ejection fraction, acute respiratory failure, delirium, and discussion with Radiology about probable abdominal hematoma. I then spent 20 minutes in a critical care discussion with the patient's who decided to make this patient comfort cares. Greater than 50% included discussing care with the team, reviewing data, updating and managing the care plan. Subjective Time Seen by Provider: 08:15 Date Seen: 01/20/24 Interval history: This morning Jacoby remained tachycardic. He was restless, frequently rising from his chair and going to the bed and vice versa. He was intermittently confused. I spoke with him about my concerns about persistent atrial fibrillation with rapid ventricular rate and probable abdominal wall hematoma and AML. I informed him that I would like to consult with a heat plant specialist and pursue transfer for treatment or, if he were going to stay here, pursue comfort cares. At the time that I spoke with him about this, Jacoby was oriented x3 and oriented to situation. He said he wanted to talk with his about it and did not know if he would except transfer, but did not really want to think about comfort cares either. He told me that he needed to talk with his , but did not want to do it now. I asked if I could call her and talk with her and he said ?no. ? He said he would do it but did not want to do it right then. He became more restless and more confused and then tried to call his at 1 point, but was unable to get the phone to work because he did not seem to know how to push the buttons. At this point we helped him call his and asked her to come in immediately. When she came, Jacoby was confused and not engaging in the conversation with os about his healthcare. His noted that it was really hard to see him so uncomfortable. She told me that she knew that he was very ill and likely did not have long to live and they were hoping to just get him by to [facility] or [place]. She noted that at home he has been declining in more frequently confused. He has been spending large amounts of money on items they do not need, such as a 4th [employer] tractor. The last 2 tractors he has bought do not fit any of the accessories that they have for the other tractors. He has also not been paying bills in the last month, which is very unusual for him. He seems to think that he has been paying them, but when she checks on it they are not paid. She told me that she would like him comfort cares by the end of today, but wanted to check with her children 1st to give them a chance to come visit him before they did so. I checked back frequently in the morning and spoke with her about the elevated lactate. We talked about giving IV fluids to treat this, noting that this may worsen his breathing due to worsening heart failure. She declined IV fluids. It was taking some time for their kids to arrive due to various previous commitments that they had, so ultimately she asked me to make him comfort cares early this afternoon though there kids had not arrived yet. Exam Narrative: Exam Narrative: General: Moderate respiratory distress. Agitated, restless, intermittently oriented x3 alternating with complete delirium, grabbing at objects thinking they are something else. Mild central cyanosis. Mottling on extremities. Oropharynx: Clear. Mucous membranes moist. Cardiovascular: Irregularly irregular, tachycardic. Respiratory: Decreased breath sounds bilaterally. Abdomen: Bowel sounds present. Distended, tender even to light touch along the left abdominal wall, nontender in the right, no rigidity or guarding on the right. Extremities: 3 to 4+ lower extremity edema. Dressing on right calf. Const: Vital Signs, click to edit/add: Vital Signs - 24 hr 01/19/24 16:55 01/19/24 17:05 01/19/24 17:12 Temperature 98.2 F Pulse Rate Pulse Rate [Left P ulse Oximeter] Pulse Rate [Pulse Oximeter] 143 H Respiratory Rate 24 Blood Pressure 132/92 H Blood Pressure [Le ft Arm] Blood Pressure [Ri ght Upper Arm] 110/76 Pulse Oximetry 90 92 Oxygen Delivery Me thod Room Air Room Air Oxygen Flow Rate 01/19/24 17:31 01/19/24 17:46 01/19/24 17:47 Temperature Pulse Rate 143 H 143 H Pulse Rate [Left P ulse Oximeter] Pulse Rate [Pulse Oximeter] Respiratory Rate 34 H Blood Pressure 123/82 125/81 Blood Pressure [Le ft Arm] Blood Pressure [Ri ght Upper Arm] Pulse Oximetry 89 90 Oxygen Delivery Me thod Room Air Room Air Room Air Oxygen Flow Rate 01/19/24 18:17 01/19/24 18:20 01/19/24 18:30 Temperature Pulse Rate 140 H 140 H 141 H Pulse Rate [Left P ulse Oximeter] Pulse Rate [Pulse Oximeter] Respiratory Rate 36 H 34 H Blood Pressure Blood Pressure [Le ft Arm] Blood Pressure [Ri ght Upper Arm] Pulse Oximetry 92 89 89 Oxygen Delivery Me thod Room Air Room Air Room Air Oxygen Flow Rate 01/19/24 18:34 01/19/24 18:44 01/19/24 18:45 Temperature Pulse Rate 142 H 142 H Pulse Rate [Left P ulse Oximeter] Pulse Rate [Pulse Oximeter] Respiratory Rate 32 H Blood Pressure 121/85 Blood Pressure [Le ft Arm] Blood Pressure [Ri ght Upper Arm] Pulse Oximetry 90 89 Oxygen Delivery Me thod Room Air Room Air Room Air Oxygen Flow Rate 01/19/24 19:00 01/19/24 19:03 01/19/24 19:15 Temperature Pulse Rate 141 H 142 H 142 H Pulse Rate [Left P ulse Oximeter] Pulse Rate [Pulse Oximeter] Respiratory Rate 32 H Blood Pressure 121/77 Blood Pressure [Le ft Arm] Blood Pressure [Ri ght Upper Arm] Pulse Oximetry 89 90 89 Oxygen Delivery Me thod Room Air Room Air Oxygen Flow Rate 01/19/24 19:31 01/19/24 20:01 01/19/24 20:09 Temperature Pulse Rate Pulse Rate [Left P ulse Oximeter] Pulse Rate [Pulse Oximeter] Respiratory Rate Blood Pressure 133/100 H 133/93 H Blood Pressure [Le ft Arm] Blood Pressure [Ri ght Upper Arm] Pulse Oximetry 91 Oxygen Delivery Me thod Oxygen Flow Rate 01/19/24 20:15 01/19/24 20:15 01/19/24 21:25 Temperature 97.3 F L Pulse Rate Pulse Rate [Left P ulse Oximeter] 138 H 144 H Pulse Rate [Pulse Oximeter] Respiratory Rate 24 24 Blood Pressure Blood Pressure [Le ft Arm] 140/91 H 141/90 H Blood Pressure [Ri ght Upper Arm] Pulse Oximetry 90 90 Oxygen Delivery Me thod Room Air Room Air Oxygen Flow Rate 01/19/24 21:50 01/19/24 21:55 01/19/24 22:00 Temperature Pulse Rate Pulse Rate [Left P ulse Oximeter] 143 H 143 H 143 H Pulse Rate [Pulse Oximeter] Respiratory Rate Blood Pressure Blood Pressure [Le ft Arm] 121/82 130/83 140/91 H Blood Pressure [Ri ght Upper Arm] Pulse Oximetry Oxygen Delivery Me thod Oxygen Flow Rate 01/19/24 22:05 01/19/24 22:10 01/19/24 22:15 Temperature Pulse Rate Pulse Rate [Left P ulse Oximeter] 143 H 143 H 144 H Pulse Rate [Pulse Oximeter] Respiratory Rate Blood Pressure Blood Pressure [Le ft Arm] 130/89 139/89 107/86 Blood Pressure [Ri ght Upper Arm] Pulse Oximetry Oxygen Delivery Me thod Oxygen Flow Rate 01/19/24 22:20 01/19/24 22:25 01/19/24 22:30 Temperature Pulse Rate Pulse Rate [Left P ulse Oximeter] 144 H 144 H 144 H Pulse Rate [Pulse Oximeter] Respiratory Rate Blood Pressure Blood Pressure [Le ft Arm] 132/92 H 123/82 123/82 Blood Pressure [Ri ght Upper Arm] Pulse Oximetry Oxygen Delivery Me thod Oxygen Flow Rate 01/19/24 22:35 01/19/24 22:40 01/19/24 22:45 Temperature Pulse Rate 144 H Pulse Rate [Left P ulse Oximeter] 143 H 145 H Pulse Rate [Pulse Oximeter] Respiratory Rate Blood Pressure Blood Pressure [Le ft Arm] 128/87 127/92 H Blood Pressure [Ri ght Upper Arm] Pulse Oximetry Oxygen Delivery Me thod Oxygen Flow Rate 01/19/24 22:45 01/19/24 22:50 01/19/24 23:00 Temperature 98.1 F Pulse Rate Pulse Rate [Left P ulse Oximeter] 144 H 143 H 143 H Pulse Rate [Pulse Oximeter] Respiratory Rate 28 H Blood Pressure Blood Pressure [Le ft Arm] 114/74 120/86 121/81 Blood Pressure [Ri ght Upper Arm] Pulse Oximetry 92 Oxygen Delivery Me thod Room Air Oxygen Flow Rate 01/19/24 23:00 01/19/24 23:00 01/20/24 00:00 Temperature Pulse Rate Pulse Rate [Left P ulse Oximeter] 136 H 149 H Pulse Rate [Pulse Oximeter] Respiratory Rate 30 H 30 H Blood Pressure Blood Pressure [Le ft Arm] 130/91 H Blood Pressure [Ri ght Upper Arm] Pulse Oximetry 93 Oxygen Delivery Me thod Room Air Oxygen Flow Rate 01/20/24 00:07 01/20/24 00:30 01/20/24 01:30 Temperature 98.3 F Pulse Rate Pulse Rate [Left P ulse Oximeter] 136 H 136 H 76 Pulse Rate [Pulse Oximeter] Respiratory Rate 30 H Blood Pressure Blood Pressure [Le ft Arm] 118/83 117/81 100/72 Blood Pressure [Ri ght Upper Arm] Pulse Oximetry 93 Oxygen Delivery Me thod Room Air Oxygen Flow Rate 01/20/24 02:17 01/20/24 02:30 01/20/24 03:00 Temperature 97.9 F Pulse Rate Pulse Rate [Left P ulse Oximeter] 70 80 74 Pulse Rate [Pulse Oximeter] Respiratory Rate 40 H Blood Pressure Blood Pressure [Le ft Arm] 124/72 118/53 L 110/79 Blood Pressure [Ri ght Upper Arm] Pulse Oximetry 88 Oxygen Delivery Me thod Room Air Oxygen Flow Rate 01/20/24 03:24 01/20/24 03:30 01/20/24 04:00 Temperature 98.4 F Pulse Rate 71 Pulse Rate [Left P ulse Oximeter] 76 72 Pulse Rate [Pulse Oximeter] Respiratory Rate 36 H Blood Pressure Blood Pressure [Le ft Arm] 134/82 106/71 Blood Pressure [Ri ght Upper Arm] Pulse Oximetry 88 Oxygen Delivery Me thod Room Air Oxygen Flow Rate 01/20/24 04:24 01/20/24 04:30 01/20/24 05:00 Temperature Pulse Rate Pulse Rate [Left P ulse Oximeter] 72 77 Pulse Rate [Pulse Oximeter] Respiratory Rate 36 H Blood Pressure Blood Pressure [Le ft Arm] 111/73 126/78 Blood Pressure [Ri ght Upper Arm] Pulse Oximetry Oxygen Delivery Me thod Oxygen Flow Rate 01/20/24 05:30 01/20/24 06:00 01/20/24 06:32 Temperature 98.5 F Pulse Rate Pulse Rate [Left P ulse Oximeter] 72 77 136 H Pulse Rate [Pulse Oximeter] Respiratory Rate 36 H Blood Pressure Blood Pressure [Le ft Arm] 118/79 124/74 134/84 Blood Pressure [Ri ght Upper Arm] Pulse Oximetry 87 L Oxygen Delivery Me thod Room Air Oxygen Flow Rate 01/20/24 07:00 01/20/24 07:00 01/20/24 07:35 Temperature 98.6 F Pulse Rate Pulse Rate [Left P ulse Oximeter] 138 H 140 H Pulse Rate [Pulse Oximeter] Respiratory Rate 28 H 28 H Blood Pressure Blood Pressure [Le ft Arm] 148/106 H 148/106 H 134/81 Blood Pressure [Ri ght Upper Arm] Pulse Oximetry 84 L 85 L Oxygen Delivery Me thod Room Air Room Air Oxygen Flow Rate 01/20/24 07:45 01/20/24 08:00 01/20/24 08:00 Temperature Pulse Rate Pulse Rate [Left P ulse Oximeter] 138 H Pulse Rate [Pulse Oximeter] Respiratory Rate 22 Blood Pressure Blood Pressure [Le ft Arm] 134/86 132/93 H Blood Pressure [Ri ght Upper Arm] Pulse Oximetry 86 L 84 L Oxygen Delivery Me thod Room Air Room Air Oxygen Flow Rate 01/20/24 08:15 01/20/24 08:30 01/20/24 08:45 Temperature Pulse Rate Pulse Rate [Left P ulse Oximeter] 122 H 133 H 132 H Pulse Rate [Pulse Oximeter] Respiratory Rate Blood Pressure Blood Pressure [Le ft Arm] 135/85 135/85 133/76 Blood Pressure [Ri ght Upper Arm] Pulse Oximetry 87 L Oxygen Delivery Me thod Nasal Cannula Oxygen Flow Rate 01/20/24 09:00 01/20/24 09:15 01/20/24 09:30 Temperature Pulse Rate Pulse Rate [Left P ulse Oximeter] 132 H 120 H 116 H Pulse Rate [Pulse Oximeter] Respiratory Rate Blood Pressure Blood Pressure [Le ft Arm] 126/84 126/80 122/82 Blood Pressure [Ri ght Upper Arm] Pulse Oximetry 88 90 Oxygen Delivery Me thod Nasal Cannula Nasal Cannula Oxygen Flow Rate 1 1 01/20/24 09:45 01/20/24 10:00 01/20/24 10:15 Temperature Pulse Rate Pulse Rate [Left P ulse Oximeter] 88 101 H 87 Pulse Rate [Pulse Oximeter] Respiratory Rate Blood Pressure Blood Pressure [Le ft Arm] 108/74 126/79 116/59 L Blood Pressure [Ri ght Upper Arm] Pulse Oximetry 90 93 93 Oxygen Delivery Me thod Nasal Cannula Nasal Cannula Nasal Cannula Oxygen Flow Rate 1 2 2 01/20/24 10:30 01/20/24 10:45 01/20/24 10:46 Temperature 98.9 F Pulse Rate 138 H Pulse Rate [Left P ulse Oximeter] 82 71 Pulse Rate [Pulse Oximeter] Respiratory Rate Blood Pressure Blood Pressure [Le ft Arm] 118/82 113/64 Blood Pressure [Ri ght Upper Arm] Pulse Oximetry 93 94 Oxygen Delivery Me thod Nasal Cannula Room Air Oxygen Flow Rate 2 01/20/24 11:00 01/20/24 11:15 01/20/24 11:30 Temperature Pulse Rate Pulse Rate [Left P ulse Oximeter] 68 72 65 Pulse Rate [Pulse Oximeter] Respiratory Rate 32 H Blood Pressure Blood Pressure [Le ft Arm] 103/53 L 112/79 115/77 Blood Pressure [Ri ght Upper Arm] Pulse Oximetry 88 Oxygen Delivery Me thod Room Air Oxygen Flow Rate 01/20/24 11:40 01/20/24 11:45 01/20/24 12:00 Temperature Pulse Rate 65 Pulse Rate [Left P ulse Oximeter] 68 72 Pulse Rate [Pulse Oximeter] Respiratory Rate Blood Pressure Blood Pressure [Le ft Arm] 121/73 109/69 Blood Pressure [Ri ght Upper Arm] Pulse Oximetry Oxygen Delivery Me thod Oxygen Flow Rate 01/20/24 12:15 01/20/24 12:30 01/20/24 12:45 Temperature Pulse Rate Pulse Rate [Left P ulse Oximeter] 65 67 69 Pulse Rate [Pulse Oximeter] Respiratory Rate Blood Pressure Blood Pressure [Le ft Arm] 112/60 111/62 117/80 Blood Pressure [Ri ght Upper Arm] Pulse Oximetry Oxygen Delivery Me thod Oxygen Flow Rate 01/20/24 13:00 01/20/24 13:30 Temperature Pulse Rate Pulse Rate [Left P ulse Oximeter] 67 64 Pulse Rate [Pulse Oximeter] Respiratory Rate Blood Pressure Blood Pressure [Le ft Arm] 130/84 114/67 Blood Pressure [Ri ght Upper Arm] Pulse Oximetry Oxygen Delivery Me thod Oxygen Flow Rate Documenting provider has reviewed patient's vital signs: yes Labs Labs: Laboratory Results - last 24 hr 01/19/24 01/19/24 01/20/24 17:30 20:00 06:01 WBC 4.12 L 7.06 RBC 4.02 L 4.34 Hgb 9.2 L 9.8 L Hct 32.2 L 35.2 L MCV 80 81 MCH 23 L 23 L MCHC 29 L 28 L RDW Coeff of [place] 21.6 H 22.4 H Plt Count 184 120 L Neut % (Auto) 21.3 L 17.4 L Lymph % (Auto) 28.9 31.2 [place] % (Auto) 36.7 H 43.1 H Eos % (Auto) 0.0 0.0 Baso % (Auto) 2.9 1.1 Neut # (Auto) 0.90 L 1.20 L Lymph # (Auto) 1.20 2.20 [place] # (Auto) 1.50 H 3.00 H Eos # (Auto) 0.00 0.00 Baso # (Auto) 0.10 0.08 Abs Immat Gran (auto) 0.40 H 0.51 H Imm/Tot Granulo (auto) 10.2 7.2 Diff Slide Review Acceptable Review Acceptable Review VBG pH VBG pCO2 VBG pO2 VBG HCO3 Sodium 133 L 132 L Potassium 4.5 4.4 Chloride 99 98 Carbon Dioxide 27 23 Anion Gap 7 11 BUN 37 H 42 H Creatinine 1.8 H 2.4 H Estimated Creat Clear 38.00 28.50 Estimated GFR 40 29 Glucose 113 101 Lactate 2.2 H Calcium 8.8 8.5 Magnesium 2.0 Total Bilirubin 0.8 Direct Bilirubin 0.2 AST 50 H ALT 16 Alkaline Phosphatase 107 Troponin I < 0.01 L C-Reactive Protein 3.9 H 1.5 H NT-Pro-B Natriuret Pep 3600 Total Protein 10.5 H Albumin 3.4 Lipase 55 TSH 15.300 H Urine Color Yellow Urine Appearance Clear Urine pH 5.0 Ur Specific [place] 1.015 Urine Protein Negative Urine Glucose (UA) Negative Urine Ketones Negative Urine Blood Negative Urine Nitrite Negative Urine Bilirubin Negative Urine Urobilinogen 0.2 Ur Leukocyte Esterase Negative Urine RBC 0-2 Urine WBC 0-2 Ur Squamous Epith Cells Few Amorphous Sediment Moderate A Urine Bacteria Few A Fine Granular Casts Few A Digoxin 2.2 H SARS-CoV-2 (PCR) Negative SARS-CoV-2 Influenza Type A (PCR) Negative PCR FLU A Influenza Type B (PCR) Negative PCR FLU B RSV (PCR) Negative PCR RSV Lab Acknowledgement 01/20/24 01/20/24 01/20/24 08:07 08:54 11:55 WBC RBC Hgb Hct MCV MCH MCHC RDW Coeff of [place] Plt Count Neut % (Auto) Lymph % (Auto) [place] % (Auto) Eos % (Auto) Baso % (Auto) Neut # (Auto) Lymph # (Auto) [place] # (Auto) Eos # (Auto) Baso # (Auto) Abs Immat Gran (auto) Imm/Tot Granulo (auto) Diff Slide Review VBG pH 7.376 VBG pCO2 42 VBG pO2 34.0 VBG HCO3 24 Sodium Potassium Chloride Carbon Dioxide Anion Gap BUN Creatinine Estimated Creat Clear Estimated GFR Glucose Lactate 2.5 H 4.9 H* Calcium Magnesium Total Bilirubin Direct Bilirubin AST ALT Alkaline Phosphatase Troponin I C-Reactive Protein NT-Pro-B Natriuret Pep Total Protein Albumin Lipase TSH Urine Color Urine Appearance Urine pH Ur Specific [place] Urine Protein Urine Glucose (UA) Urine Ketones Urine Blood Urine Nitrite Urine Bilirubin Urine Urobilinogen Ur Leukocyte Esterase Urine RBC Urine WBC Ur Squamous Epith Cells Amorphous Sediment Urine Bacteria Fine Granular Casts Digoxin SARS-CoV-2 (PCR) Influenza Type A (PCR) Influenza Type B (PCR) RSV (PCR) Lab Acknowledgement Test Added Ordering Physician: Chung Jack M.D. Date of Service: 01/20/24 Procedure(s): US abdomen limited Accession Number(s): [id number] cc: Chung Jack M.D.; David Gordon M.D.~ For Patients: As a result of the Cures Act, medical imaging exams and procedure reports are released immediately into your electronic medical record. You may view this report before your referring provider. If you have questions, please contact your health care provider. Indication: Left abdominal wall mass or fluid collection. Technique: Ultrasound abdomen soft tissue limited with color Doppler analysis. Comparison: None. Findings/Impression: In the left abdominal wall area of concern is a circumscribed oval-shaped mass measuring 6 x 4 x 3 cm. This is either solid or complex cystic. There is no color Doppler blood flow within this lesion. Therefore, this lesion is nonspecific and can not be further characterized by ultrasound. A hematoma is possible. Neoplastic lesion is less likely but not excluded. This could be further evaluated with a follow-up ultrasound, CT or MRI. Dictated by Jared Cardenas MD @ 01/20/2024 1:22:40 AM (Electronically Signed)
[2024-01-20] MEDS: SODIUM CHLORIDE 0.9 % (FLUSH) 10 ML SYRINGE 5 ML IVF (20:09)
--- NOTE | 2024-01-20 23:06 | PC.NURSE ---
End of shift [id number]: Pt has been alert but on/off disoriented d/t delirium. Pt only slept maybe for 30-45min early afternoon per family?s report. He?s maintained comfort on 2L NC with sats reading in the 90s. Pt dips down to o80-83% on RA. Respirations range in the 30s, he remains tachypneic. Pt is visibly uncomfortable when he has his eyes open and his neck/back has become stiff from slouching all day. However, he continues to need encouragement and reassurance to take pain medications as he often refuses them, saying ?they fuck me up so bad?. He?s been c/o left sided abdominal pain and posterior neck pain. Pt has come close to dozing off but will catch himself as his head bobs, he?s been fighting sleep all evening. PRN morphine given twice, PRN IV Ativan still available. WOC nurse came and changed RLL dressing today; since then there?s been moderate serosanguinous drainage on the lateral leg. Pt has refused another dressing change. PIV in right AC and PIV in left hand SL and C/D/I. ?
[2024-01-21] MEDS: LORazepam 2 MG/ML inj IVP (00:12)
[2024-01-21] MEDS: MORPHINE 10 MG/0.5 ML ORAL SOLN PO ×2 (00:12→01:49)
--- NOTE | 2024-01-21 03:44 | PC.NURSE ---
End of shift [id number]: Patient sitting up at bedside at start of shift, dyspneic with respirations 36 and restless, rocking back and forth. Pain reported to LUQ. Administered PRN morphine and prn ativan for pain and restlessness. Assisted patient into bed in high fowlers as patient reported that it felt easier to breath sitting in an upright position. Patient appeared to be sleeping at 0045 with shallow even breaths, respirations decreased to 26 after medication. At 0130 patient restless and tachypneic with respirations 34, administered prn morphine for comfort. At 0215 respirations decreased to 28. Naval Architect providing rounds and at 0307 patient found without an apical pulse, respiration or blood pressure. Dr. Escobar with [facility] notified of patient , Lissett notified and would like to return bedside to see patient prior to leaving for home. Donor referral line called and patient deferred for any donation. Family appointing [facility] in [place], awaiting visit to call.
--- NOTE | 2024-01-26 15:50 | PM.DSD ---
Discharge Sum: Prov Provider Date Seen: 01/20/24 Primary care physician: David Gordon MD Consults: 01/19/24 21:42 Consult to Wound Care [CONS] Routine Comment: Consulting Provider: Brittney Rodrigues Discharge Sum: Diag PCOD Cause of : Acute myeloid leukemia Contributing Factors (1) Palliative care encounter: (2) Atrial flutter with rapid ventricular response: (3) Heart failure with preserved ejection fraction: (4) Abdominal wall mass of left flank: (5) CKD stage 3b, GFR 30-44 ml/min: (6) Anemia: (7) Chronic wound of extremity: (8) Increased thyroid stimulating hormone (TSH) level: (9) Tobacco dependence: (10) COPD (chronic obstructive pulmonary disease): (11) Malnutrition: (12) Excessive anticoagulation: (13) Digoxin toxicity: (14) Anasarca: (15) Delirium: Discharge Sum: Summary Date and Time Date of admission: 01/19/24 20:17 Date of : 01/21/24 Time of : 03:07 Summary Details: Per H&P: Jacoby Alba is a 68 year old male with recent hospitalization, January 05 to January 08, for atrial flutter with RVR, heart failure and untreated acute myelogenous leukemia and COPD presents for evaluation of abdominal pain and worsening breathing. Has severe orthopnea. He is not aware of any chest pain or trouble breathing. He has left-sided abdominal pain. No nausea and vomiting. He was hospitalized here on January 05 with atrial flutter and rapid ventricular response. At that time he was seen to be in heart failure. He was treated with diuretics and rate control. Rate control was obtained with metoprolol 100 b.i.d., digoxin 0.125 mg daily and diltiazem 240 mg in the morning and 120 mg in the evening. Volume control was furosemide 40 mg once a day with potassium 20 mEq daily. Was prescribed Eliquis 2.5 mg b.i.d. for stroke prophylaxis and he also has a prescription for Xarelto 15 mg daily that he was also taking. He is not aware of any bleeding except a bloody nose a couple days ago. Since discharge he and his report he is bed somewhat dyspneic but gradually getting worse. He was seen in clinic on the with an O2 sat of 85%. He is developed increasing abdominal pain on his left side. He has been able to eat and drink and his bowels have been working. He has no awareness of tachycardia. He reports he is taking his medications though he cannot tell me how he is taking him or if he can remember to take come. He has not allowed his to have any involvement with monitoring her managing his medications despite her attempts to do so. HR was persistently elevated overnight. Patient increasingly dyspneic and poorly perfused. Lactate is increasing. Patient unable to engage further in goals of care discussions due to delirium. Large abdominal mass on exam and imaging, possibly hematoma versus less likely solid AML tumor. Goals of care discussion took place with his this morning in the patient's presence, but he did not engage with discussion due to delirium. In discussion with his , she has chosen comfort cares and if possible home with hospice. Will start comfort cares and see how he does overnight. Many family members are expected to arrive today. Additional Data Attending physician: Chung Jack MD
== END 2024-01-21 07:29 | disposition expired | DRG 308 ==
LOC: ED 17:50 → MEDSURG 20:12
PROVIDERS: Family Medicine; Admitting Provider Family Medicine; Emergency Provider Family Medicine; PCP Internal Medicine; Visit Provider Family Medicine
DX: I48.92 Unspecified atrial flutter (principal); I50.31 Acute diastolic (congestive) heart failure; C92.00 Acute myeloblastic leukemia, not having achieved remission; D68.32 Hemorrhagic disorder due to extrinsic circulating anticoagulants; I50.30 Unspecified diastolic (congestive) heart failure; E44.0 Moderate protein-calorie malnutrition; L97.212 Non-pressure chronic ulcer of right calf with fat layer exposed; F05 Delirium due to known physiological condition; R10.9 Unspecified abdominal pain; D63.8 Anemia in other chronic diseases classified elsewhere; Z79.01 Long term (current) use of anticoagulants; R60.1 Generalized edema; J44.9 Chronic obstructive pulmonary disease, unspecified; N18.32 Chronic kidney disease, stage 3b; R19.09 Other intra-abdominal and pelvic swelling, mass and lump; R94.6 Abnormal results of thyroid function studies; T46.0X Poisoning by, adverse effect of and underdosing of cardiac-stimulant glycosides and drugs of similar action; Z51.5 Encounter for palliative care; T45.511A Poisoning by anticoagulants, accidental (unintentional), initial encounter; Z68.28 Body mass index [BMI] 28.0-28.9, adult; T46.0X5A Adverse effect of cardiac-stimulant glycosides and drugs of similar action, initial encounter; D63.0 Anemia in neoplastic disease; M62.50 Muscle wasting and atrophy, not elsewhere classified, unspecified site; F17.210 Nicotine dependence, cigarettes, uncomplicated
CPT/HCPCS: 36415; 71046; 74176; 76705; 80048; 80076; 80162; 81001; 82803; 83605; 83690; 83735; 83880; 84443; 84484; 85025; 86140; 87086; 87631; 94761; 99285; A9270; J1940; J2060; J3490; J7030